=== PATIENT | female | born 1955 | race Asian ===

== ENCOUNTER → 2020-02-19 09:02 | Outpatient (BNVA) | payer BC, SELFPAY | PROVIDERS: Visit Provider Surgery | DX: Z45.010 Encounter for checking and testing of cardiac pacemaker pulse generator [battery] (principal); I48.91 Unspecified atrial fibrillation | CPT/HCPCS: 99214 ==

== ENCOUNTER 2020-03-03 12:25 | Emergency (ER) | payer BC, SELFPAY ==
--- NOTE | 2020-03-03 12:33 | ED_ITS ---
HPI - Chest Pain General Chief Complaint: Abdominal Pain Stated Complaint: chest pain Time Seen by Provider: 03/03/20 12:32 Source: patient Mode of arrival: ambulatory Limitations: no limitations History of Present Illness HPI narrative: 64-year-old female with below noted past medical history including history of gastroesophageal reflux disease, hypertension, hypercholesteremia, atrial fibrillation anticoagulated and surgical history of cholecystectomy, tubal ligation and cardiac pacemake she presents today amb ulatory via triage complaint of left-sided abdominal pain going on for the past 4 days. Pain being described as intermittent and sharp and stabbing like. States she called her primary care doctor on Saturday was advised to come in however she decided to wait she had intake today for pacemaker generator change which is scheduled for tomorrow she told him about her symptoms advised to come here. States there is no chest pain there is no shortness of breath fever runny nose cough congestion. Related Data Home Medications Medication Instructions Recorded Confirmed diltiazem HCl 1 cap PO DAILY 02/25/20 02/25/20 lisinopril 10 mg PO DAILY 02/25/20 02/25/20 metoprolol tartrate 1 tab PO BID 02/25/20 02/25/20 omeprazole 1 cap PO DAILY 02/25/20 02/25/20 pravastatin 1 tab PO DAILY 02/25/20 02/25/20 rivaroxaban [Xarelto] 1 tab PO DAILY 02/25/20 02/25/20 Allergies Allergy/AdvReac Type Severity Reaction Status Date / Time latex [LATEX] Allergy Intermediate RASH WITH Verified 02/25/20 19:14 CONTACT Review of Systems Review of Systems: Constitutional: No Weight loss, No Fever, No Chills, No Ni ght Sweats, No Fatigue, No Malaise ENT/Mouth: No Hearing loss, No Ear Pain, No Nasal Congestion, No Sinus Pain, No Hoarseness, No sore throat, No Rhinorrhea, No Swallowing Difficulty Eyes: No Eye Pain, No Swelling, No Redness, No Foreign Body, No Discharge, No Vision Changes Cardiovascular: No Chest Pain, No SOB, No Dyspnea on Exertion, No Orthopnea, No Edema, No Palpitations Respiratory: No Cough, No Sputum, No Wheezing, No Smoke Exposure, No Dyspnea Gastrointestinal: As noted in HPI, No Hematochezia, No Melena Genitourinary: no irregular bleeding, No Dysuria, No Urinary Frequency, No Hem aturia, No Urinary Incontinence, No Urgency, No Flank Pain, No Urinary Flow Changes Musculoskeletal: No joint pain, No Myalgias, No Joint Swelling Skin: No Skin Lesions, No rash Neuro: No Weakness, No Numbness, No Paresthesias, No Loss of Consciousness, No Dizziness, No Headache Psych: No Social Issues Heme/Lymph: No Bruising, No Bleeding,No Lymphadenopathy Endocrine: No Polyuria, No Polydipsia, No Temperature Intolerance Yes all other systems are reviewed and are negative [facility] Past Medical History Medical History Atrial fibrillation GERD (gastroesophageal reflux disease) HTN (hypertension) Hypercholesteremia Pacemaker Surgical History History of cholecystectomy History of permanent cardiac pacemaker placement History of tubal ligation Social History Social History Alcohol intake: never Smoking Status: Never smoker Use of substances other than those prescribed or required for medical reasons: No Advance Directives: Yes Advance Directives on File: Yes Advance Directives Date on File: 04/19/17 Physical Exam Vital Signs: Vital Signs: Last Vital Signs Temp 98.2 F 03/03/20 14:37 Pulse 92 03/03/20 14:37 Resp 16 03/03/20 14:37 BP 165/90 H 03/03/20 14:37 Pulse Ox 98 03/03/20 14:37 Body Mass Index 25.7 Reviewed Const: General: cooperative and healthy appearing; No acute distress or intoxicated appearing Nutritional Appearance: average body habitus Orientation/consciousness: patient oriented x3 HENMT: Head: Yes normal to inspection Ears: hearing grossly normal bilaterally Eyes: General: appearance normal, both eyes and all related structures Visual Mckinnon: normal visual mckinnon by confrontation Neck: Neck: Yes normal visual inspection and No tender Thyroid: Thyroid normal Chest: Chest palpation & inspection: normal inspection of the chest Resp: Effort & Inspection: normal respiratory effort Cardio: Jugular venous distension: no JVD Rhythm: regular rhythm Heart sounds: S1 normal heart sound present and S2 normal heart sound present GI: Inspection: Yes normal to inspection Palpation (GI): Soft to palpation and Tenderness to palpation present (GI) (very mild, no rebound.) in the epigastrum and in the LUQ Percussion: Yes normal to percussion Auscultation: normal bowel sounds : General: Yes no CVA tenderness Back/Spine/Pelvis: Back: no CVA tenderness Skin: General skin exam: no rashes or lesions noted Neuro: General: patient oriented x3 Extrem: General: Yes normal to inspection Course Reevaluation(s) Reevaluation #1: 1320 20 minutes after the GI cocktail states that her pain resolved. Reevaluation #2: Labs overall stable. Abdominal CT without acute findings Feels better after the GI cocktail She is on long-term PPI proper instructions, dietary regiment reviewed. Will discharge with follow-up MDM - Chest Pain Medical Records Data Attestation: I reviewed the patient's medical records. Lab Data Attestation: I reviewed the patient's lab results. Result diagrams: 03/03/20 13:08 03/03/20 13:08 Labs: Lab Results 03/03/20 03/03/20 03/03/20 Range/Units 13:08 13:08 13:08 WBC 7.5 (4.8-10.8) X10*3/uL RBC 4.68 (4.20-5.50) X10*6/uL Hgb 14.0 (12.0-16.0) g/dl Hct 41.8 (37-47) % MCV 89.3 (80-98) fL MCH 29.9 (27.0-33.0) pg MCHC 33.5 (31.0-35.0) g/dl RDW 12.3 (11.0-16.0) % Plt Count 208 (160-400) X10*3/uL MPV 9.8 (9.4-12.3) fL Immature Gran % (Auto) 0.4 (0.0-0.4) % Neut % (Auto) 58.3 (45-73) % Lymph % (Auto) 31.2 (20-40) % Marshall % (Auto) 7.4 (2-11) % Eos % (Auto) 2.0 (0-4) % Baso % (Auto) 0.7 (0-2) % Lymph # (Auto) 2.4 (1.2-4.9) X10*3/uL Marshall # (Auto) 0.6 (0.1-1.2) X10*3/uL Eos # (Auto) 0.2 (0.0-0.4) X10*3/uL Baso # (Auto) 0.1 (0.0-0.2) X10*3/uL Abs Immat Gran (auto) 0.03 (0.00-0.03) X10*3/uL Absolute Neuts (auto) 4.4 (2.0-8.3) X10*3/uL Absolute Nucleated RBC 0.000 (0.0-0.012) X10*3/uL Nucleated RBC % (auto) 0.0 (0.0-0.2) /100WBC PT 11.8 (10.8-13.0) SEC INR 1.0 (0.9-1.1) APTT 33.7 (24.1-38.0) SEC Sodium 141 (135-145) mmol/L Potassium 4.7 (3.3-5.1) mmol/l Chloride 106 (96-108) mmol/L Carbon Dioxide 29 (22-29) mmol/L Anion Gap 11 L (12-20) BUN 11 (9-16) mg/dL Creatinine 0.77 (0.5-1.4) mg/dL Estim Creat Clear Calc 66.4 Estimated GFR > 60 Random Glucose 77 (60-115) mg/dL Calcium 9.2 (8.4-10.2) mg/dL Total Bilirubin 0.4 (0.0-1.0) mg/dL AST 26 (5-31) U/L ALT 28 (0-31) U/L Alkaline Phosphatase 123 H (39-117) U/L Troponin I High Sens (<3.5-17.0) ng/L Total Protein 7.8 (6.5-8.0) g/dL Albumin 4.3 (3.5-5.0) g/dL 03/03/20 Range/Units 13:08 WBC (4.8-10.8) X10*3/uL RBC (4.20-5.50) X10*6/uL Hgb (12.0-16.0) g/dl Hct (37-47) % MCV (80-98) fL MCH (27.0-33.0) pg MCHC (31.0-35.0) g/dl RDW (11.0-16.0) % Plt Count (160-400) X10*3/uL MPV (9.4-12.3) fL Immature Gran % (Auto) (0.0-0.4) % Neut % (Auto) (45-73) % Lymph % (Auto) (20-40) % Marshall % (Auto) (2-11) % Eos % (Auto) (0-4) % Baso % (Auto) (0-2) % Lymph # (Auto) (1.2-4.9) X10*3/uL Marshall # (Auto) (0.1-1.2) X10*3/uL Eos # (Auto) (0.0-0.4) X10*3/uL Baso # (Auto) (0.0-0.2) X10*3/uL Abs Immat Gran (auto) (0.00-0.03) X10*3/uL Absolute Neuts (auto) (2.0-8.3) X10*3/uL Absolute Nucleated RBC (0.0-0.012) X10*3/uL Nucleated RBC % (auto) (0.0-0.2) /100WBC PT (10.8-13.0) SEC INR (0.9-1.1) APTT (24.1-38.0) SEC Sodium (135-145) mmol/L Potassium (3.3-5.1) mmol/l Chloride (96-108) mmol/L Carbon Dioxide (22-29) mmol/L Anion Gap (12-20) BUN (9-16) mg/dL Creatinine (0.5-1.4) mg/dL Estim Creat Clear Calc Estimated GFR Random Glucose (60-115) mg/dL Calcium (8.4-10.2) mg/dL Total Bilirubin (0.0-1.0) mg/dL AST (5-31) U/L ALT (0-31) U/L Alkaline Phosphatase (39-117) U/L Troponin I High Sens < 3.5 (<3.5-17.0) ng/L Total Protein (6.5-8.0) g/dL Albumin (3.5-5.0) g/dL Imaging Data CT scan - abdomen: Radiologist's impression: [address] [address] [address] Scan Report Signed Patient: Lupe Thomas#: [id number] : 5Acct:[id number] Age/Sex: 64 / FADM Date: 03/03/20 Loc: HO.ED Attending Dr: Ordering Physician: Donny Thompson NP Date of Service: 03/03/20 Procedure(s): CT abdomen pelvis w con Accession Number(s): [id number] cc: Donny Thompson NP~ EXAMINATION: CT ABDOMEN AND PELVIS WITH CONTRAST CLINICAL INFORMATION: Left-sided abdominal pain. COMPARISON: CTA abdomen 04/24/2019, CT abdomen and pelvis with contrast 10/11/2017 TECHNIQUE: Multidetector volumetric images were obtained from the superior aspect of the liver through the pubic symphysis following administration 85 mL of Omnipaque 350 intravenous contrast. Sagittal and coronal reformatted images were obtained on the technologist's workstation. Oral contrast: No This CT examination was performed using dose optimization techniques as appropriate, variously including the following: *Automated exposure control *Adjustment of mA and/or kV according to patient size (this includes techniques or standardized protocols for targeted exams where dose is matched to indication/reason for exam; i.e. extremities or head) *Use of iterative reconstruction technique DLP: 405 mGy-cm FINDINGS: LUNG BASES: The visualized lung bases are unremarkable. LIVER, GALLBLADDER, AND BILIARY TREE: The liver is normal in size and smooth in contour. There is borderline hepatic steatosis. There has been prior cholecystectomy. There is no hepatic parenchymal lesion or intrahepatic ductal dilatation. Common duct measures approximately 1.1 cm similar to prior exam. PANCREAS: Unremarkable. SPLEEN: Normal in size. Small splenule left upper quadrant again noted. ADRENAL GLANDS: Unremarkable. KIDNEYS AND URETERS: The kidneys are normal in size and smooth in contour and enhance symmetrically. There is no hydronephrosis, hydroureter, or perinephric stranding. No visible calculi. Again, there is tiny cyst upper pole left kidney under a centimeter and a 1.5 cm cyst upper pole right kidney. BLADDER: The bladder is very distended. No focal wall thickening, diverticulum, or bladder calculus. GASTROINTESTINAL TRACT: There is no bowel obstruction or inflammatory changes in the bowel or mesentery. There is been prior appendectomy. No ascites or fluid collection. ABDOMINAL WALL: No significant hernia is appreciated. LYMPH NODES: No lymphadenopathy. VASCULAR: Unremarkable. PELVIC VISCERA: Unremarkable. OSSEOUS STRUCTURES: Unremarkable. CT/CT abdomen pelvis w con IMPRESSION: 1. Overdistended urinary bladder. Upper tracts unremarkable. No hydronephrosis or perirenal Screening. 2. Prior appendectomy. No bowel obstruction or inflammatory changes in abdomen or pelvis. 3. Prior cholecystectomy. No intrahepatic ductal dilatation. Common duct stable. Dictated By:DOT PATEL MD Signed By:<Electronically signed by DOT PATEL MD in OV>03/03/20 1437 DD/ 1254 TD/TT: Brick Tester: OCTAVIO Chest x-ray: Radiologist's impression: Lupe Thomas 64 F 1955 [place] [id number] XRay Report Signed Patient: Lupe ThomaskMR#: [id number] : 5Acct:[id number] Age/Sex: 64 / FADM Date: 03/03/20 Loc: .ED Attending Dr: Ordering Physician: Donny Thompson NP Date of Service: 03/03/20 Procedure(s): XR chest 1V Accession Number(s): [id number] cc: Donny Thompson NP~ EXAMINATION: XR CHEST CLINICAL INFORMATION: Chest pain. COMPARISON: 07/27/2019 chest radiograph. TECHNIQUE: Frontal view of the chest was obtained. FINDINGS: The lungs are clear. The heart and mediastinal structures are unremarkable. A left-sided pacemaker appears in good position. XR/XR chest 1V IMPRESSION: No acute cardiopulmonary process. Dictated By:SULEMA JULIAN MD Signed By:<Electronically signed by SULEMA JULIAN MD in OV>03/03/20 1319 DD/ 1234 TD/TT: Brick Tester: JOSÉ MIGUEL ECG Data ECG #1: Interpretation: Atrial fibrillation Rate 85 T-wave inversions in leads 2 3 AVF for 4-5-6 No change from July Discharge Plan Discharge Clinical Impression: Chronic GERD, Abdominal pain Patient Disposition: Home, Self-Care Instructions: Diet for Stomach Ulcers and Gastritis (ED), Gastroesophageal Reflux Disease (ED) Additional Instructions: Dietary precautions reviewed Take your omeprazole with instructions as reviewed Follow-up as instructed Return if any concerns worsening symptoms Thank you Prescriptions: No Action pravastatin 40 mg tablet 1 tab PO DAILY RF: 0 diltiazem HCl 120 mg capsule,extended release 24 hr 1 cap PO DAILY RF: 0 lisinopril 10 mg tablet 10 mg PO DAILY RF: 0 omeprazole 20 mg capsule,delayed release(DR/EC) 1 cap PO DAILY RF: 0 metoprolol tartrate 25 mg tablet 1 tab PO BID RF: 0 Xarelto 20 mg tablet 1 tab PO DAILY RF: 0 Referrals: Gustavo Reynoso MD [Primary Care Provider] - 3 days
--- NOTE | 2020-03-03 12:34 | ECG_ITS ---
Test Reason : ABDOMINAL PAIN Blood Pressure : / mmHG Vent. Rate : 085 BPM Atrial Rate : 241 BPM P-R Int : 000 ms QRS Dur : 084 ms QT Int : 412 ms P-R-T Axes : 000 017 266 degrees QTc Int : [address] & T wave abnormality, consider inferior ischemia ST & T wave abnormality, consider anterolateral ischemia Prolonged QT Abnormal ECG When compared with ECG of 27-JUL-2019 11:09, No significant changes seen Referred By: Donny Thompson Electronically Signed By:Toribio Lau
[2020-03-03 12:38] VITALS: BP 162/83; PULSE 75; RESP 18; TEMP 36.5; O2SAT 97; BMI 25.7
[2020-03-03] MEDS: Lidocaine HCl Viscous 2 % 15 ML SOLUTION 10 ML MUCOUS MEM (12:46)
[2020-03-03] MEDS: Magnesium Hydrox/Alum Hydrox 30 ML ORAL.SUSP PO (12:47)
--- NOTE | 2020-03-03 12:54 | CT_ITS ---
EXAMINATION: CT ABDOMEN AND PELVIS WITH CONTRAST CLINICAL INFORMATION: Left-sided abdominal pain. COMPARISON: CTA abdomen 04/24/2019, CT abdomen and pelvis with contrast 10/11/2017 TECHNIQUE: Multidetector volumetric images were obtained from the superior aspect of the liver through the pubic symphysis following administration 85 mL of Omnipaque 350 intravenous contrast. Sagittal and coronal reformatted images were obtained on the technologist's workstation. Oral contrast: No This CT examination was performed using dose optimization techniques as appropriate, variously including the following: *Automated exposure control *Adjustment of mA and/or kV according to patient size (this includes techniques or standardized protocols for targeted exams where dose is matched to indication/reason for exam; i.e. extremities or head) *Use of iterative reconstruction technique DLP: 405 mGy-cm FINDINGS: LUNG BASES: The visualized lung bases are unremarkable. LIVER, GALLBLADDER, AND BILIARY TREE: The liver is normal in size and smooth in contour. There is borderline hepatic steatosis. There has been prior cholecystectomy. There is no hepatic parenchymal lesion or intrahepatic ductal dilatation. Common duct measures approximately 1.1 cm similar to prior exam. PANCREAS: Unremarkable. SPLEEN: Normal in size. Small splenule left upper quadrant again noted. ADRENAL GLANDS: Unremarkable. KIDNEYS AND URETERS: The kidneys are normal in size and smooth in contour and enhance symmetrically. There is no hydronephrosis, hydroureter, or perinephric stranding. No visible calculi. Again, there is tiny cyst upper pole left kidney under a centimeter and a 1.5 cm cyst upper pole right kidney. BLADDER: The bladder is very distended. No focal wall thickening, diverticulum, or bladder calculus. GASTROINTESTINAL TRACT: There is no bowel obstruction or inflammatory changes in the bowel or mesentery. There is been prior appendectomy. No ascites or fluid collection. ABDOMINAL WALL: No significant hernia is appreciated. LYMPH NODES: No lymphadenopathy. VASCULAR: Unremarkable. PELVIC VISCERA: Unremarkable. OSSEOUS STRUCTURES: Unremarkable. CT/CT abdomen pelvis w con IMPRESSION: 1. Overdistended urinary bladder. Upper tracts unremarkable. No hydronephrosis or perirenal Screening. 2. Prior appendectomy. No bowel obstruction or inflammatory changes in abdomen or pelvis. 3. Prior cholecystectomy. No intrahepatic ductal dilatation. Common duct stable.
[2020-03-03 13:16] LABS: Basophils Absolute Auto 0.1 X10*3/uL (0.0-0.2); Basophils Percent Auto 0.7 % (0-2); Eosinophils Absolute Auto 0.2 X10*3/uL (0.0-0.4); Hematocrit 41.8 % (37-47); Imm Gran Abs Auto 0.03 X10*3/uL (0.00-0.03); Imm Gran Pct Auto 0.4 % (0.0-0.4); Lymphocytes Absolute Auto 2.4 X10*3/uL (1.2-4.9); Lymphocytes Percent Auto 31.2 % (20-40); MANUAL DIFF FLAG NO; Mean Corpuscular HGB Conc 33.5 g/dl (31.0-35.0); Mean Corpuscular Hemoglobin 29.9 pg (27.0-33.0); Mean Corpuscular Volume 89.3 fL (80-98); Mean Platelet Volume 9.8 fL (9.4-12.3); Monocytes Absolute Auto 0.6 X10*3/uL (0.1-1.2); Monocytes Percent Auto 7.4 % (2-11); Neutrophils Absolute Auto 4.4 X10*3/uL (2.0-8.3); Neutrophils Percent Auto 58.3 % (45-73); Platelet Count 208 X10*3/uL (160-400); Red Blood Count 4.68 X10*6/uL (4.20-5.50); Red Cell Distribution Width 12.3 % (11.0-16.0); White Blood Count 7.5 X10*3/uL (4.8-10.8)
[2020-03-03 13:25] LABS: Prothrombin Time 11.8 SEC (10.8-13.0)
[2020-03-03 13:27] LABS: Partial Thromboplastin Time 33.7 SEC (24.1-38.0)
--- NOTE | 2020-03-03 13:30 | PC.NURSE ---
PT C/O LUQ ABD PAIN X4 DAYS, NO RELIEF FROM IBUPROFEN AT HOME, PT MEDICATED W/ 'GI COCKTAIL' PER EMAR, PT REPORTED SIGNIFICANT RELIEF S/P MEDICATION, PROVIDER NOTIFIED.
[2020-03-03 13:42] LABS: Alanine Aminotransferase 28 U/L (0-31); Albumin Level 4.3 g/dL (3.5-5.0); Alkaline Phosphatase 123 U/L (39-117); Anion Gap 11 (12-20); Aspartate Amino Transferase 26 U/L (5-31); Bilirubin Total 0.4 mg/dL (0.0-1.0); Blood Urea Nitrogen 11 mg/dL (9-16); Calcium 9.2 mg/dL (8.4-10.2); Carbon Dioxide 29 mmol/L (22-29); Chloride 106 mmol/L (96-108); Creatinine Clr Calc Pharmacy 66.4; Estimated Glomerular Filt Rate > 60; Glucose Random 77 mg/dL (60-115); Potassium 4.7 mmol/l (3.3-5.1); Sodium 141 mmol/L (135-145); Total Protein 7.8 g/dL (6.5-8.0)
[2020-03-03 13:43] LABS: Troponin-I High Sensitivity < 3.5 ng/L (<3.5-17.0)
[2020-03-03] MEDS: iohexoL 350 MG/ML 100 ML INFUS..BTL 85 ML IV (14:03)
[2020-03-03 14:37] VITALS: BP 165/90; PULSE 92; RESP 16; TEMP 36.8; O2SAT 98
[2020-03-03 15:27] LABS: Glucose Urine UA NEG (NEG); Leukocyte Esterase Urine NEG (NEG); Nitrite Urine NEG (NEG); Specific Gravity - Urine <= 1.005 (1.005-1.025); Urine Blood NEG (NEG); Urine Ketones NEG (NEG); Urine Protein NEG (NEG-TRACE)
[2020-03-03 15:40] LABS: Appearance Urine CLEAR; Color Urine YELLOW
[2020-03-03 15:57] LABS: RBC Urine 0 /HPF (0); WBC Urine 0 /HPF (0-4)
[2020-03-03 15:58] LABS: Squamous Epithelial Cell Urine TRACE /LPF
== END 2020-03-03 15:44 | disposition home or self-care (01) ==
PROVIDERS: Nurse Practitioner Primary Care; Emergency Provider Emergency Medicine Emergency Medical Services
DX: K21.9 Gastro-esophageal reflux disease without esophagitis (principal); I48.91 Unspecified atrial fibrillation; R10.9 Unspecified abdominal pain; I10 Essential (primary) hypertension; Z79.899 Other long term (current) drug therapy
CPT/HCPCS: 36415; 71045; 74177; 80053; 81001; 84484; 85025; 85610; 85730; 93005; 96374; 99284; 99285; Q9967

== ENCOUNTER 2020-03-04 11:24 | Day surgery (SDC) | payer BC, SELFPAY ==
[2020-02-25 19:08] VITALS: BMI 25.7
--- NOTE | 2020-03-03 09:50 | P.CONAN_ITS ---
Documented by User: Alessia Raygoza 03/03/20 09:54 HPI - Anesthesia Eval Consult details Narrative: 64yo F for Pacemaker Generator Change [facility] Past Medical History Medical History (Updated 03/04/20 @ 12:40 by Perla Yadav) Atrial fibrillation GERD (gastroesophageal reflux disease) HTN (hypertension) Hypercholesteremia Pacemaker Surgical History Surgical History History of cholecystectomy History of permanent cardiac pacemaker placement History of tubal ligation Social History Social History Alcohol intake: never Smoking Status: Never smoker Use of substances other than those prescribed or required for medical reasons: No Advance Directives: Yes Advance Directives Information Provided: Yes Advance Directives on File: Yes Advance Directives Date on File: 04/19/17 Meds Allergies Allergy/AdvReac Type Severity Reaction Status Date / Time latex [LATEX] Allergy Intermediate RASH WITH Verified 02/25/20 19:14 CONTACT Home Medications Medication Instructions Recorded Confirmed Type diltiazem HCl 1 cap PO DAILY 02/25/20 03/04/20 History lisinopril 10 mg PO DAILY 02/25/20 02/25/20 History metoprolol tartrate 1 tab PO BID 02/25/20 03/04/20 History omeprazole 1 cap PO DAILY 02/25/20 02/25/20 History pravastatin 1 tab PO DAILY 02/25/20 02/25/20 History rivaroxaban [Xarelto] 1 tab PO DAILY 02/25/20 03/04/20 History Exam Exam Date and Time: March 03, 2020 0950 Height,Weight and Vital Signs: Height 5 ft 3 in Weight 65.771 kg Pertinent Lab Results Pertinent Lab Results: Laboratory Tests 07/27/19 07/27/19 11:51 11:51 WBC 8.6 Hgb 14.8 Hct 43.4 Plt Count 252 Sodium 140 Potassium 4.1 Chloride 107 BUN 13 Creatinine 0.71 Assessment and Plan Assessment Anesthesia Assessment: Chart Reviewed Documented by User: Perla Yadav 03/04/20 12:51 [facility] Past Medical History Medical History (Updated 03/04/20 @ 12:40 by Perla Yadav) Atrial fibrillation GERD (gastroesophageal reflux disease) HTN (hypertension) Hypercholesteremia Pacemaker Family History Family history of problems with anesthesia: No Surgical History Surgical History History of cholecystectomy History of permanent cardiac pacemaker placement History of tubal ligation History of Problems with Anesthesia: No Social History Social History Alcohol intake: never Smoking Status: Never smoker Use of substances other than those prescribed or required for medical reasons: No Advance Directives: Yes Advance Directives Information Provided: Yes Advance Directives on File: Yes Advance Directives Date on File: 04/19/17 Meds Allergies Allergy/AdvReac Type Severity Reaction Status Date / Time latex [LATEX] Allergy Intermediate RASH WITH Verified 02/25/20 19:14 CONTACT Home Medications Medication Instructions Recorded Confirmed Type diltiazem HCl 1 cap PO DAILY 02/25/20 03/04/20 History lisinopril 10 mg PO DAILY 02/25/20 02/25/20 History metoprolol tartrate 1 tab PO BID 02/25/20 03/04/20 History omeprazole 1 cap PO DAILY 02/25/20 02/25/20 History pravastatin 1 tab PO DAILY 02/25/20 02/25/20 History rivaroxaban [Xarelto] 1 tab PO DAILY 02/25/20 03/04/20 History Exam Height,Weight and Vital Signs: Vital Signs Temp Pulse Resp BP Pulse Ox 03/04/20 11:59 96.8 F 62 16 177/78 H 97 Airway Mallampati Class: II TM Dist: >3cm Neck ROM: Full Loose/Missing/Broken Teeth: Yes (Back) Heart: RRR Lungs: CTAB Assessment and Plan Assessment Anesthesia Assessment: Anesthesia Plan Discussed and Chart Reviewed Final Anesthetic Review NPO: Yes ASA Class: III Final Preanesthetic Review: No Changes in Pt Med Stat, Meds/Allgs Chart Reviewed, Consent Obtained/Reviewed and Anes Risks/Benef Reviewed Patient Risk: Intermediate Procedure Risk: Intermediate Anesthetic Plan Anesthetic Plan: MAC: Disposition: Standard PACU
[2020-03-04 11:59] VITALS: BP 177/78; PULSE 62; RESP 16; TEMP 36; O2SAT 97
[2020-03-04] MEDS: Lactated Ringers 1,000 ML 100 ML IVCONT (12:15)
--- NOTE | 2020-03-04 12:40 | MHC.SHP ---
Pre-Procedural Eval Section B Chief Complaint: A-fib, Checking and testing of Cardiac Pacemaker Allergies: Allergies Allergy/AdvReac Type Severity Reaction Status Date / Time latex [LATEX] Allergy Intermediate RASH WITH Verified 02/25/20 19:14 CONTACT Plan I have reviewed the history and physical and performed a pertinent physical examination on my patient. No changes have occurred unless specified.
[2020-03-04 13:45] VITALS: BP 134/75; PULSE 75; RESP 20; TEMP 36.1; O2SAT 100
--- NOTE | 2020-03-04 13:53 | PM.OP ---
Brief Operative Note Date of Service: 03/04/20 Pre-op diagnosis: Pacemaker in HARMEET Post-op diagnosis: same Procedure: Dual pacer generator change Implants: See dictation Surgeon: Fadumo Katz MD Anesthesia: MAC Estimated blood loss (mL): 2 Condition: stable Disposition: PACU
[2020-03-04 14:00] VITALS: BP 144/65; PULSE 61; RESP 20; O2SAT 97
[2020-03-04] MEDS: Acetaminophen 325 MG TABLET 650 MG PO (14:09)
[2020-03-04 14:15] VITALS: BP 168/76; PULSE 66; RESP 18; TEMP 36.5; O2SAT 96
--- NOTE | 2020-03-04 14:28 | HO.POSTANES ---
Post Anesthesia Evaluation Post Anesthesia Evaluation Vital Signs: Vital Signs Temp Pulse Resp BP Pulse Ox 03/04/20 14:15 97.7 F 66 18 168/76 H 96 03/04/20 14:00 61 20 144/65 H 97 03/04/20 13:45 97.0 F 75 20 134/75 100 03/04/20 11:59 96.8 F 62 16 177/78 H 97 Anesthesia: Monitored Mental Status: Awake Pain Control: Satisfactory Hydration: Adequate
== END 2020-03-04 14:47 | disposition home or self-care (01) ==
PROVIDERS: Visit Provider Surgery
PROC: (CPT 33228; principal; 2020-03-04 13:00)
DX: Z45.010 Encounter for checking and testing of cardiac pacemaker pulse generator [battery] (principal); I48.91 Unspecified atrial fibrillation; I10 Essential (primary) hypertension; K21.9 Gastro-esophageal reflux disease without esophagitis; Z79.899 Other long term (current) drug therapy; Z91.040 Latex allergy status
CPT/HCPCS: 33228; 86850; 86900; 86901; C1785; J0690; J2250; J3010; J3370

== ENCOUNTER → 2020-03-25 10:15 | Outpatient (BNVA) | payer BC, SELFPAY | PROVIDERS: Visit Provider Surgery | DX: Z76.89 Persons encountering health services in other specified circumstances (principal) ==

== ENCOUNTER 2020-05-13 08:21 | Outpatient (REF) | payer MEDICARE, SELFPAY ==
[2020-05-13 09:19] LABS: MANUAL DIFF FLAG NO
[2020-05-13 09:23] LABS: Basophils Percent Auto 0.4 % (0-2); Eosinophils Absolute Auto 0.2 X10*3/uL (0.0-0.4); Eosinophils Percent Auto 3.5 % (0-4); Hematocrit 42.6 % (37-47); Hemoglobin 13.6 g/dl (12.0-16.0); Imm Gran Abs Auto 0.03 X10*3/uL (0.00-0.03); Imm Gran Pct Auto 0.4 % (0.0-0.4); Lymphocytes Absolute Auto 2.8 X10*3/uL (1.2-4.9); Lymphocytes Percent Auto 40.1 % (20-40); Mean Corpuscular HGB Conc 31.9 g/dl (31.0-35.0); Mean Corpuscular Hemoglobin 29.3 pg (27.0-33.0); Mean Corpuscular Volume 91.8 fL (80-98); Mean Platelet Volume 10.8 fL (9.4-12.3); Monocytes Absolute Auto 0.6 X10*3/uL (0.1-1.2); Monocytes Percent Auto 8.2 % (2-11); Neutrophils Absolute Auto 3.3 X10*3/uL (2.0-8.3); Neutrophils Percent Auto 47.4 % (45-73); Platelet Count 211 X10*3/uL (160-400); Red Blood Count 4.64 X10*6/uL (4.20-5.50); Red Cell Distribution Width 12.7 % (11.0-16.0); White Blood Count 6.9 X10*3/uL (4.8-10.8)
[2020-05-13 09:47] LABS: Alanine Aminotransferase 37 U/L (0-31); Albumin Level 4.2 g/dL (3.5-5.0); Alkaline Phosphatase 104 U/L (39-117); Anion Gap 12 (12-20); Aspartate Amino Transferase 29 U/L (5-31); Bilirubin Total 0.9 mg/dL (0.0-1.0); Blood Urea Nitrogen 17 mg/dL (9-16); Calcium 8.9 mg/dL (8.4-10.2); Carbon Dioxide 28 mmol/L (22-29); Chloride 106 mmol/L (96-108); Cholesterol 160 mg/dL; Estimated Glomerular Filt Rate > 60; Glucose Fasting 132 mg/dL (60-99); HDL Cholesterol 48 mg/dL; LDL Cholesterol Calculated 85 mg/dl; Potassium 4.6 mmol/L (3.3-5.1); Sodium 141 mmol/L (135-145); Total Protein 7.7 g/dL (6.5-8.0); Triglycerides 136 mg/dL
[2020-05-13 10:09] LABS: TSH reflex Free T4 1.35 uIU/mL (0.32-4.0)
[2020-05-13 10:17] LABS: Estimated Average Glucose 128 mg/dL; Hemoglobin A1c % 6.1 %
== END 2020-05-13 08:22 | disposition home or self-care (01) ==
LOC: HO.LAB 08:21
PROVIDERS: PCP Nurse Practitioner Family; Visit Provider Nurse Practitioner Family
DX: I10 Essential (primary) hypertension (principal); E78.00 Pure hypercholesterolemia, unspecified
CPT/HCPCS: 36415; 80053; 80061; 83036; 84443; 85025

== ENCOUNTER → 2020-10-14 09:34 | Outpatient (BNVA) | payer MEDICARE, SELFPAY | PROVIDERS: PCP Internal Medicine; Visit Provider Surgery | DX: I48.91 Unspecified atrial fibrillation (principal); Z95.0 Presence of cardiac pacemaker; Z79.899 Other long term (current) drug therapy | CPT/HCPCS: 99212 ==

== ENCOUNTER → 2020-12-07 08:04 | Outpatient (BNVA) | payer MEDICARE, SELFPAY | PROVIDERS: PCP Internal Medicine; Visit Provider Internal Medicine | DX: I48.0 Paroxysmal atrial fibrillation (principal); I10 Essential (primary) hypertension; E78.5 Hyperlipidemia, unspecified; Z95.0 Presence of cardiac pacemaker | CPT/HCPCS: 93005; 99202 ==

== ENCOUNTER 2021-01-02 15:10 | Outpatient (REF) | payer MEDICARE, SELFPAY ==
--- NOTE | ~2021-01-02 | XR_ITS ---
EXAMINATION: XR SHOULDER, RIGHT CLINICAL INFORMATION: Pain. COMPARISON: None TECHNIQUE: AP external rotation, Grashey, scapular Y, and axillary views of the right shoulder. FINDINGS: The glenohumeral joint space and AC joint space are normal. There is small enthesophytes along the greater tuberosity. The soft tissues are normal. XR/XR shoulder RT min 2V IMPRESSION: Small enthesophytes along the greater tuberosity. No visible acute fracture or dislocation seen. No lytic process.
== END 2021-01-02 15:11 | disposition home or self-care (01) ==
LOC: HO.XRAY 15:10
PROVIDERS: PCP Internal Medicine; Visit Provider Internal Medicine
DX: M25.511 Pain in right shoulder (principal)
CPT/HCPCS: 73030

== ENCOUNTER 2021-01-10 07:36 | Outpatient (REF) | payer MEDICARE, SELFPAY ==
[2021-01-10 07:53] LABS: MANUAL DIFF FLAG NO
[2021-01-10 08:16] LABS: Basophils Percent Auto 0.5 % (0-2); Eosinophils Absolute Auto 0.3 X10*3/uL (0.0-0.4); Eosinophils Percent Auto 3.8 % (0-4); Hematocrit 40.6 % (37-47); Hemoglobin 13.7 g/dl (12.0-16.0); Imm Gran Abs Auto 0.02 X10*3/uL (0.00-0.03); Imm Gran Pct Auto 0.3 % (0.0-0.4); Lymphocytes Percent Auto 30.4 % (20-40); Mean Corpuscular HGB Conc 33.7 g/dl (31.0-35.0); Mean Corpuscular Hemoglobin 30.4 pg (27.0-33.0); Mean Corpuscular Volume 90.2 fL (80-98); Mean Platelet Volume 10.1 fL (9.4-12.3); Monocytes Absolute Auto 0.5 X10*3/uL (0.1-1.2); Monocytes Percent Auto 7.5 % (2-11); Neutrophils Absolute Auto 3.8 X10*3/uL (2.0-8.3); Neutrophils Percent Auto 57.5 % (45-73); Platelet Count 192 X10*3/uL (160-400); Red Cell Distribution Width 12.6 % (11.0-16.0); White Blood Count 6.5 X10*3/uL (4.8-10.8)
[2021-01-10 08:54] LABS: Alanine Aminotransferase 42 U/L (0-31); Albumin Level 4.2 g/dL (3.5-5.0); Alkaline Phosphatase 96 U/L (39-117); Anion Gap 11 (12-20); Aspartate Amino Transferase 36 U/L (5-31); Bilirubin Total 0.7 mg/dL (0.0-1.0); Blood Urea Nitrogen 16 mg/dL (9-16); Calcium 9.4 mg/dL (8.4-10.2); Carbon Dioxide 28 mmol/L (22-29); Chloride 106 mmol/L (96-108); Cholesterol 142 mg/dL; Estimated Glomerular Filt Rate > 60; Glucose Random 131 mg/dL (60-115); HDL Cholesterol 42 mg/dL; LDL Cholesterol Calculated 86 mg/dl; Potassium 4.8 mmol/L (3.3-5.1); Sodium 140 mmol/L (135-145); Total Protein 7.7 g/dL (6.5-8.0); Triglycerides 74 mg/dL
[2021-01-10 08:59] LABS: Estimated Average Glucose 140 mg/dL; Hemoglobin A1c % 6.5 %
[2021-01-10 09:17] LABS: Free T4 (Free Thyroxine) 1.09 ng/dL (0.71-1.85); Vitamin D 25-OH Total 29.3 ng/mL (>30)
[2021-01-10 09:29] LABS: Folate 19.1 ng/mL (> or = 4.0); Vitamin B12 1004 pg/mL (200-900)
== END 2021-01-10 07:37 | disposition home or self-care (01) ==
LOC: HO.LAB 07:36
PROVIDERS: PCP Internal Medicine; Visit Provider Internal Medicine
DX: E78.00 Pure hypercholesterolemia, unspecified (principal); I10 Essential (primary) hypertension; R73.01 Impaired fasting glucose
CPT/HCPCS: 36415; 80053; 80061; 82306; 82607; 82746; 83036; 84439; 84443; 85025

== ENCOUNTER → 2021-08-28 14:07 | Outpatient (BNVA) | payer MEDICARE, SELFPAY | PROVIDERS: PCP Internal Medicine; Visit Provider Physician Assistant | DX: M75.80 Other shoulder lesions, unspecified shoulder (principal) | CPT/HCPCS: 20610; 99202; J1040 ==

== ENCOUNTER 2021-11-02 08:54 | Outpatient (REF) | payer MEDICARE, SELFPAY ==
--- NOTE | ~2021-11-02 | MM_ITS ---
EXAMINATION: MM DIAGNOSTIC DIGITAL BREAST TOMOSYNTHESIS, BILATERAL US DIAGNOSTIC ULTRASOUND BREAST, LEFT CLINICAL INFORMATION: 66-year-old with palpable concern upper outer left breast and left axilla. No prior breast imaging. No known family history breast cancer. TC score 3%. COMPARISON: None (current study represents initial baseline exam). TECHNIQUE: Digital breast tomosynthesis is performed in both the craniocaudal and mediolateral oblique views along with computer-aided detection (CAD). Synthesized 2D images are generated from the tomosynthesis. Additional left MLO, spot magnification left CC and spot magnification left MLO views are obtained. Ultrasound left breast is targeted to the palpable area upper outer quadrant as well as the left axilla. Grayscale imaging and color Doppler are performed without and with harmonics. FINDINGS: There are scattered areas of fibroglandular density (ACR BI-RADS breast composition Category b). There is a mass corresponding to the palpable concern upper outer quadrant left breast mid to posterior depth measuring approximately 2.3 cm in diameter. Margins are ill-defined. There are associated scattered round and oval and some coarse calcifications in this area. There is a large node left axilla 2.7 x 2.3 cm with no visible fatty hilus. Pacemaker generator partially overlying the posterior upper left axilla. There is mild left nipple retraction. Right breast shows scattered fibroglandular densities without mass or architectural abnormality or abnormal calcifications. There is incidental intramammary node posterior upper outer quadrant. Right axilla and skin contours are unremarkable. Ultrasound left breast demonstrates hypoechoic mass upper outer quadrant corresponding to the finding on mammography with lobulated irregular margins and overall size 2.6 x 2.0 x 2.5 cm. There is a simple avascular cystic lesion in the center of the mass measuring 1.3 x 0.9 x 0.9 cm and increased through-transmission of sound. Ultrasound left axilla demonstrates abnormal node corresponding to the mammography measuring 2.6 x 1.4 cm with no fatty hilus and abnormal color flow pattern. Results are discussed with the patient at time of visit. Ultrasound-guided core biopsy of the breast mass and left axillary node are recommended. Results and recommendations called to biological technical officer (Teresa) for Dr. Carias and Nelida Velazquez NP on 11/02/2021. MM/MM tomosynthesis diagnostic BI IMPRESSION: Left: -Irregular mass 2.6 cm upper outer left breast with associated calcifications and left axillary adenopathy. Right: -No mammographic evidence of malignancy. ASSESSMENT: BI-RADS 4: Suspicious (subcategory 4C: High suspicion for malignancy) RECOMMENDATION: -Ultrasound-guided core biopsy left breast mass. -Ultrasound-guided core biopsy left axillary adenopathy. This patient's information was entered into a reminder system with a target due date for their next mammogram.
== END 2021-11-02 08:55 | disposition home or self-care (01) ==
LOC: HO.MAMMO 08:54
PROVIDERS: PCP Internal Medicine; Visit Provider Nurse Practitioner Family
DX: N63.21 Unspecified lump in the left breast, upper outer quadrant (principal)
CPT/HCPCS: 76642; 77062; 77066

== ENCOUNTER → 2021-11-03 08:31 | Outpatient (BNVA) | payer MEDICARE, SELFPAY | PROVIDERS: PCP Internal Medicine; Visit Provider Surgery | DX: R92.8 Other abnormal and inconclusive findings on diagnostic imaging of breast (principal); N63.20 Unspecified lump in the left breast, unspecified quadrant | CPT/HCPCS: 99202 ==

== ENCOUNTER 2021-11-07 07:38 | Outpatient (REF) | payer MEDICARE, SELFPAY ==
--- NOTE | ~2021-11-07 | MM_ITS ---
PROCEDURE: US GUIDED BREAST BIOPSY, LEFT CLINICAL INFORMATION: Partially cystic hypoechoic lesion left breast 3:00 position. Abnormal-appearing left axillary lymph node. COMPARISON: November 02, 2021 PROCEDURAL DETAILS: The details of the procedure, as well as the risks, benefits, and alternatives to the procedure were explained to the patient in detail and all of her questions were answered, after which written informed consent was obtained. Site and side were confirmed. Prior to the procedure, sonography revealed a lobular hypoechoic partially cystic mass. A time-out was performed, the lesion intended for biopsy was targeted, and the skin of the left breast was then prepped and draped in the usual sterile fashion. Using sonographic guidance, sterile technique, and 1% lidocaine without epinephrine for local anesthesia, multiple automated core biopsies were obtained through the targeted area with a 14G spring loaded Achieve core biopsy device. There was real-time confirmation of appropriate needle passage. Sampling was documented. At the completion of tissue sampling, a single open coil metallic clip was deposited at the biopsy site. Using sterile technique and ultrasound guidance the abnormal-appearing left axillary lymph node was identified and after lidocaine administration multiple 14-gauge core biopsies were obtained of the lymph node. A closed coil marking clip was placed. There was no evidence of immediate complication. SPECIMEN: Adequate samples were obtained. DIGITAL POST-PROCEDURE MAMMOGRAPHY: Breast density: The tissue contains scattered areas of fibroglandular density. BI-RADS version 5, category B. There are no new mammographic findings demonstrated. The postprocedure 2-view direct digital mammogram reveals satisfactory positioning of the biopsy clips . The patient tolerated the procedure well and, after assuring adequate hemostasis, was discharged in good condition after reviewing postbiopsy breast care instructions. Final pathology results are pending. MM/MM tomosynthesis diagnostic LT IMPRESSION: 1. No immediate complication from ultrasound-guided percutaneous biopsy left breast and left axilla lymph node. 2. Ultrasound was used to localize and guide marker clip placements. 3. The 2-view direct digital postprocedure mammogram reveals satisfactory positioning of the biopsy clips. 4. Final pathology results are pending. A separate report with final recommendations will be issued once these results are made available.
[2021-11-07] MEDS: Lidocaine HCl 1 % 20 ML VIAL SUBCUT (10:28)
== END 2021-11-07 07:39 | disposition home or self-care (01) ==
LOC: HO.MAMMO 07:38
PROVIDERS: Radiology Diagnostic Radiology; PCP Internal Medicine; Visit Provider Surgery
DX: R92.8 Other abnormal and inconclusive findings on diagnostic imaging of breast (principal)
CPT/HCPCS: 19083; 36415; 77061; 77065; 88184; 88185; 88305; 88341; 88342; 88360; 88374; A4648

== ENCOUNTER → 2021-11-14 15:31 | Outpatient (BNVA) | payer MEDICARE, SELFPAY | PROVIDERS: PCP Internal Medicine; Referring Provider Internal Medicine; Visit Provider Surgery | DX: C50.412 Malignant neoplasm of upper-outer quadrant of left female breast (principal) | CPT/HCPCS: 99212 ==

== ENCOUNTER → 2021-11-17 10:43 | Outpatient (BNV) | payer MEDICARE, SELFPAY | PROVIDERS: PCP Internal Medicine; Referring Provider Surgery; Visit Provider Internal Medicine | DX: C50.812 Malignant neoplasm of overlapping sites of left female breast (principal); Z90.12 Acquired absence of left breast and nipple; M81.0 Age-related osteoporosis without current pathological fracture | CPT/HCPCS: 99205; 99212; 99213; 99214; 99215; G2211 ==

== ENCOUNTER → 2021-11-28 14:56 | Outpatient (BNVA) | payer MEDICARE, SELFPAY | PROVIDERS: PCP Internal Medicine; Visit Provider Surgery | DX: C50.412 Malignant neoplasm of upper-outer quadrant of left female breast (principal); C77.3 Secondary and unspecified malignant neoplasm of axilla and upper limb lymph nodes; Z17.1 Estrogen receptor negative status [ER-] | CPT/HCPCS: 99212 ==

== ENCOUNTER → 2021-12-04 16:09 | Outpatient (REF) | payer MEDICARE, SELFPAY ==
--- NOTE | 2021-12-04 16:12 | CA_ITS ---
Transthoracic Echocardiogram Patient (Last, First, Middle): Lupe Thomas Y Gender: Female Date of : 1955 Age: 66 Procedure Date: 12/04/2021 Procedure Type: Transthoracic Echocardiogram Location: OP Height: 160.02 cm Weight: 61.69 kg BSA: 1.64 m2 Heart Rate: bpm BP: 118 / 60 mmHg Allergy Specialist: Referring MD: Renate Mcgill MD Symptoms: pre-chemo evaluate ejection fraction Study Quality: Adequate ECG Rhythm: Atrial Fibrillation Conclusions: - The left ventricular systolic function is normal. The visually estimated ejection fraction is between 55-60%. - Severe biatrial enlargement. - There is mild to moderate tricuspid valve regurgitation. Findings Left Ventricle Normal left ventricular cavity size. There is normal left ventricular wall thickness. The left ventricular systolic function is normal. The visually estimated ejection fraction is between 55-60%. There is no evidence of regional wall motion abnormalities. Diastolic function is indeterminate on the basis of available data. Peak LV GLS - 14.7%; could be less reliable due to atrial fibrillation. Right Ventricle Normal right ventricular cavity size and systolic function. There is a pacemaker wire seen in the right ventricle. Atria Severe biatrial enlargement. Aortic Valve There is a normal trileaflet aortic valve. There is no aortic valve stenosis. There is no aortic valve regurgitation. Mitral Valve The mitral valve appears normal. There is trace mitral valve regurgitation. There is no mitral valve stenosis. Pulmonic Valve The pulmonic valve is likely normal. Tricuspid Valve There is mild to moderate tricuspid valve regurgitation. There is no evidence of pulmonary hypertension. Great Vessels The aortic annulus, sinuses of valsalva, sino tubular ridge, and asc aorta are normal in size. Venous The inferior vena cava is normal in size and collapses greater than 50% with inspiration. Pericardium/Pleural There is no evidence of pericardial effusion. Prior Study Comparison No significant change compared to prior study dated: 02/22/2015. Measurements 2D Linear Measurements IVSd: 1.02 0.6-0.9/0.6-1.0 cm LVIDd: 4.59 3.9-5.3/4.2-5.9 cm LVIDd Index: 2.80 2.4-3.2/2.2-3.1 cm/m2 LVIDs: 2.86 2.0-3.6 cm LVPWd: 0.90 0.7-1.1 cm Ao Root: 2.70 2.1-3.5 cm LA Diam: 4.20 2.7-3.8/3.0-4.0 cm LAIDs Index: 2.56 1.5-2.3 cm/m2 LV Mass: 186.89 67-162/88-224 g LV Mass Index: 113.96 43-95/49-115 g/m2 LVOT Diam: 2.00 3.0+(-)1.3 cm 2D Systolic Function EF 4C: 53.20 >55% EF 2C: 60.40 >55% EF BiP: 55.60 >55% Mitral Valve MV Pk E: 1.02 MV Decel Time: 191.00 E'Lateral: 12.70 E'Medial: 7.94 E/E' Med: 12.80 E/E' Lat: 8.00 PHT: 56.00 MVA PHT: 3.93 Decel Gilpin: 5.34 Aortic Valve AoV Pk Jose: 1.22 AoV Mn Jose: 0.76 AoV VTI: 0.30 AoV Pk Grad: 6.00 Aov Mn Grad: 3.00 ANASTASIIA Cont.VTI: 1.93 LVOT LVOT Pk Jose: 0.74 LVOT Mn Jose: 0.51 LVOT VTI: 0.19 LVOT Pk Grad: 2.00 LVOT Mn Grad: 1.00 LVOT Diam: 2.00 LVOT Area: 3.14 Diastolic Function MV Pk E: 1.02 E'Medial: 7.94 E/E' Med: 12.80 E' Laterial: 12.70 E/E' Lat: 8.00 Right Ventricle TAPSE (mm): 18.00 TVS' Jose: 11.00 Tricuspid Valve TR Pk Jose: 2.69 TR Pk Grad: 29.00 RA Press: 3.00 RVSP: 32.00 Great Vessels Aorta Ao Root-2D: 2.70 2.0-3.7 cm Ao Asc: 2.90 2.1-3.4 cm Pulmonary Valve PV Pk Jose: 0.83 Peak PV Grad: 3.00 Updated in Other Vendor System with Status of Final David Ellis MD electronically signed on 12/05/2021 3:57:49 PM with status of Final
== END ==
LOC: HO.CARD 16:09
PROVIDERS: PCP Internal Medicine; Visit Provider Internal Medicine
DX: Z01.818 Encounter for other preprocedural examination (principal); C50.919 Malignant neoplasm of unspecified site of unspecified female breast
CPT/HCPCS: 93306; 93356

== ENCOUNTER 2021-12-07 08:47 | Day surgery (SDC) | payer MEDICARE, SELFPAY ==
--- NOTE | ~2021-12-07 | IR_ITS ---
PROCEDURE: IR INSERTION OF TUNNEL CATHETER CLINICAL INFORMATION: Needs port for chemotherapy for left breast cancer. COMPARISON: None TECHNIQUE: Ultrasound fluoroscopic-guided placement of right internal jugular port catheter. All elements of maximal sterile barrier technique followed including use of cap, mask, sterile gown, sterile gloves, a sterile full body drape and hand hygiene. Also followed skin preparation with 2% chlorhexidine for cutaneous antisepsis, and sterile ultrasound preparation with sterile gel and probe cover when applicable. CONSCIOUS SEDATION: The patient received intravenous conscious sedation under my direct supervision. A registered nurse monitored the patient and the patient's vital signs throughout the procedure. The total sedation time was 82 minutes. A total of 2 mg of Versed and 100 mcg fentanyl was given for good effect. FINDINGS: Informed consent was obtained from the patient prior to the procedure. During this process, the procedure and potential alternatives were explained, along with the intended outcome and benefits. The risks of the procedure, as well as the risk of not doing the procedure, were discussed. The patient was given the opportunity to ask questions regarding the procedure and appeared competent to make medical decisions. A signed consent form which documents this discussion was placed in the medical record. Ultrasound evaluation of the neck was performed which demonstrated patency of the right internal jugular vein. Hardcopy ultrasound image was sent to PACS. Using sterile technique and ultrasound guidance a 22-gauge needle was directed into the right jugular vein and guidewire placed down into the right atrium. Following fascial dilatation with sheath placement a 0.035 inch guidewire was positioned within the right atrium. Attention was then turned to creating a port pocket within the upper right anterior chest wall. A skin incision was performed and the pocket blunt dissected out. A tunnel path from the port pocket to the internal jugular puncture site was then blunt dissected. A 6.6 Bahamian single-lumen port catheter was then pulled through the tunnel track. A 7 Bahamian peel-away sheath was then placed over the guidewire in the internal jugular vein. Through the sheath the port catheter was placed with its tip at the cavoatrial junction site as well as the internal jugular puncture site. The catheter was then trimmed to size and connected to the port. The port was then sutured within the port pocket with two, 2-0 monofilament sutures. The port was flushed with heparinized saline. There was good blood return present prior to flushing. A subcuticular 4-0 absorbable suture was used to close the subcuticular layer. Tissue adhesive was then used over the skin of the incision and at the internal jugular puncture site. Patient tolerated procedure without difficulty. IR/IR cvc insert tunnel w prt/rn registry IMPRESSION: Placement of right internal jugular port catheter as described above. Catheter is 21 cm long. Fluoroscopy time: 2.9 minutes. DAP: 314 cGy-cm2. Sedation time: 82 minutes.
[2021-12-07 08:20] VITALS: BMI 23.9
[2021-12-07 09:02] VITALS: BP 169/89; PULSE 78; RESP 18; TEMP 36.6; O2SAT 98
[2021-12-07 09:49] LABS: Basophils Percent Auto 0.1 % (0-2); Hematocrit 41.7 % (37.0-47.0); Imm Gran Abs Auto 0.13 X10*3/uL (0.00-0.03); Imm Gran Pct Auto 0.8 % (0.0-0.4); Lymphocytes Absolute Auto 0.8 X10*3/uL (1.2-4.9); Lymphocytes Percent Auto 4.4 % (20-40); MANUAL DIFF FLAG SCAN; Mean Corpuscular HGB Conc 33.6 g/dl (31.0-35.0); Mean Corpuscular Hemoglobin 29.9 pg (27.0-33.0); Mean Corpuscular Volume 89.1 fL (80.0-98.0); Mean Platelet Volume 10.8 fL (9.4-12.3); Monocytes Absolute Auto 0.1 X10*3/uL (0.1-1.2); Monocytes Percent Auto 0.7 % (2-11); Platelet Count 184 X10*3/uL (160-400); Red Blood Count 4.68 X10*6/uL (4.20-5.50); Red Cell Distribution Width 12.9 % (11.0-16.0); SCAN SMEAR FLAG 1; White Blood Count 17.1 X10*3/uL (4.8-10.8)
[2021-12-07 09:58] LABS: INTERNATIONAL NORM RATIO 0.9 (0.9-1.1); Prothrombin Time 10.3 SEC (10.0-13.1)
[2021-12-07 10:01] LABS: Partial Thromboplastin Time 25.4 SEC (26.0-36.4)
[2021-12-07 10:25] LABS: SLIDE REVIEW VERIFIED
[2021-12-07] MEDS: Lidocaine HCl 2% PF/Epi 1:200 20 ML VIAL INFILTRATI (12:24)
[2021-12-07 13:27] VITALS: BP 165/69; PULSE 75; RESP 15; TEMP 36.4; O2SAT 98
[2021-12-07 13:57] VITALS: BP 140/71; PULSE 69; RESP 16; O2SAT 98
[2021-12-07 14:27] VITALS: BP 137/68; PULSE 76; RESP 14; O2SAT 96
[2021-12-07 14:57] VITALS: BP 156/72; PULSE 67; RESP 16; O2SAT 98
[2021-12-07 15:12] VITALS: BP 152/72; PULSE 69; RESP 16; TEMP 36.4; O2SAT 98
== END 2021-12-07 15:18 | disposition home or self-care (01) ==
PROVIDERS: Radiology Diagnostic Radiology; PCP Internal Medicine; Visit Provider Radiology Diagnostic Radiology
DX: C50.912 Malignant neoplasm of unspecified site of left female breast (principal); Z79.899 Other long term (current) drug therapy; Z91.040 Latex allergy status
CPT/HCPCS: 36415; 36561; 85025; 85610; 85730; 99152; 99153; C1769; C1788; J0690; J1642; J2250; J3010

== ENCOUNTER 2021-12-12 13:21 | Outpatient (REF) | payer MEDICARE, SELFPAY ==
--- NOTE | ~2021-12-12 | CT_ITS ---
EXAMINATION: CT HEAD WITH/WITHOUT CONTRAST CLINICAL INFORMATION: Headaches, breast cancer COMPARISON: None TECHNIQUE: Contiguous axial imaging was performed from the skull base to vertex before and after the administration of 85 mL of Omnipaque [address] examination was performed using dose optimization techniques as appropriate, variously including the following: *Automated exposure control *Adjustment of mA and/or kV according to patient size (this includes techniques or standardized protocols for targeted exams where dose is matched to indication/reason for exam; i.e. extremities or head) *Use of iterative reconstruction technique DLP: 1488 mGy-cm FINDINGS: There is no evidence of acute intracranial hemorrhage or territorial infarction. No abnormal mass-effect or midline shift is seen. Fragoso to white matter differentiation is well preserved. No extra-axial fluid collections are identified. No abnormal contrast enhancement is seen. The ventricles are normal in size. There is no abnormal attenuation within the brain parenchyma. The osseous structures and soft tissues are normal. The mastoid air cells and visualized portions of the paranasal sinuses are well-aerated. CT/CT head/brain wo/w IV con IMPRESSION: No acute intracranial pathology identified.
[2021-12-12] MEDS: iohexoL 350 MG/ML 100 ML INFUS..BTL 85 ML IV (14:50)
== END 2021-12-12 13:22 | disposition home or self-care (01) ==
LOC: HO.CT 13:21
PROVIDERS: PCP Internal Medicine; Visit Provider Internal Medicine
DX: R51.9 Headache, unspecified (principal)
CPT/HCPCS: 70470; Q9967

== ENCOUNTER → 2021-12-14 09:11 | Outpatient (BNVA) | payer MEDICARE, SELFPAY | PROVIDERS: PCP Internal Medicine; Visit Provider Internal Medicine | DX: I48.19 Other persistent atrial fibrillation (principal); R94.31 Abnormal electrocardiogram [ECG] [EKG]; I10 Essential (primary) hypertension; E78.5 Hyperlipidemia, unspecified; Z79.01 Long term (current) use of anticoagulants; Z79.899 Other long term (current) drug therapy; Z95.0 Presence of cardiac pacemaker | CPT/HCPCS: 93005; 99212 ==

== ENCOUNTER 2021-12-26 07:59 | Outpatient (REF) | payer MEDICARE, SELFPAY ==
[2021-12-26 08:20] LABS: Hematocrit 38.8 % (37.0-47.0); Mean Corpuscular HGB Conc 33.5 g/dl (31.0-35.0); Mean Corpuscular Volume 89.6 fL (80.0-98.0); Mean Platelet Volume 9.2 fL (9.4-12.3); Platelet Count 179 X10*3/uL (160-400); Red Blood Count 4.33 X10*6/uL (4.20-5.50); Red Cell Distribution Width 12.7 % (11.0-16.0); White Blood Count 4.9 X10*3/uL (4.8-10.8)
[2021-12-26 08:44] LABS: Alanine Aminotransferase 37 U/L (0-31); Albumin Level 3.8 g/dL (3.5-5.0); Alkaline Phosphatase 91 U/L (39-117); Anion Gap 13 (12-20); Aspartate Amino Transferase 22 U/L (5-31); Bilirubin Total 0.2 mg/dL (0.0-1.0); Blood Urea Nitrogen 19 mg/dL (9-16); Calcium 8.9 mg/dL (8.4-10.2); Carbon Dioxide 26 mmol/L (22-29); Chloride 107 mmol/L (96-108); Estimated Glomerular Filt Rate > 60; Glucose Random 135 mg/dL (60-115); Potassium 5.3 mmol/L (3.3-5.1); Sodium 141 mmol/L (135-145); Total Protein 6.4 g/dL (6.5-8.0)
[2021-12-26 09:09] LABS: Thyroid Stimulating Hormone 1.16 uIU/mL (0.32-4.0)
[2021-12-26 09:34] LABS: Atypical Lymphs Percent Manual 1 % (0-6); Band Neutrophils Percent 2 % (3-5); Basophils Percent Manual 1 % (0-2); Lymphocytes Absolute Manual 1.4 X10*3/uL (1.2-4.9); Lymphocytes Percent Manual 28 % (20-40); Metamyelocytes Percent 1 %; Monocytes Absolute Manual 0.2 X10*3/uL (0.1-1.2); Monocytes Percent Manual 4 % (2-11); Neutrophils Absolute Manual 3.2 X10*3/uL (2.0-8.3); Neutrophils Percent Manual 63 % (45-73)
[2021-12-26 09:35] LABS: Platelet Estimate NORMAL (NORMAL); Platelet Morphology Comment NORMAL; RBC Morphology NORMAL
[2021-12-26 10:45] LABS: Cortisol Random 17.2 ug/dL
== END 2021-12-26 08:00 | disposition home or self-care (01) ==
LOC: HO.LAB 07:59
PROVIDERS: PCP Internal Medicine; Visit Provider Internal Medicine
DX: C50.912 Malignant neoplasm of unspecified site of left female breast (principal)
CPT/HCPCS: 36415; 80053; 82533; 84443; 85007; 85027

== ENCOUNTER → 2022-01-02 13:15 | Outpatient (BNVA) | payer MEDICARE, SELFPAY | PROVIDERS: PCP Internal Medicine; Visit Provider Internal Medicine | DX: R76.8 Other specified abnormal immunological findings in serum (principal) | CPT/HCPCS: 99202 ==

== ENCOUNTER 2022-01-12 11:21 | Emergency (ER) | payer MEDICARE, SELFPAY ==
--- NOTE | ~2022-01-12 | XR_ITS ---
EXAMINATION: XR CHEST CLINICAL INFORMATION: Weakness. COMPARISON: 03/03/2020 chest radiograph. TECHNIQUE: Frontal view of the chest was obtained. FINDINGS: Support devices: Right-sided central venous port with tip terminating in the superior vena cava. Left sided dual-lead pacemaker with leads in the right atrium and right ventricle. No significant abnormality is noted involving the heart, lungs, mediastinum, bony thorax or soft tissues. XR/XR chest 1V IMPRESSION: No acute cardiopulmonary process.
[2022-01-12 11:29] VITALS: BP 130/55; PULSE 84; RESP 18; TEMP 36.6; O2SAT 97; BMI 23.0
--- NOTE | 2022-01-12 16:50 | ED_ITS ---
HPI - General Adult General Chief complaint: General Medical Stated complaint: numbness all over body Time Seen by Provider: 01/12/22 16:50 Source: patient Mode of arrival: ambulatory Limitations: no limitations History of Present Illness HPI narrative: Patient is a 66 year old assigned female at with a history of breast cancer and hepatitis B exposure presenting to the emergency department today with bilateral hand pain and generalized weakness. Patient states that since chemo on Saturday she has had bilateral hand pain and generalized weakness. Patient states that she was started on prophylactic hepatitis B medication and that has caused her to feel much more tired and weak. Patient states that she was supposed to be given something for her hands by her oncologist but nothing went to her pharmacy. Patient denies any dizziness, lightheadedness, abdominal pain, nausea, vomiting, fever, chills, blurry vision, double vision, loss of vision, chest pain, difficulty breathing, shortness of breath, back pain, night sweats, pain with urination, increased urinary frequency, increased urinary urgency, blood in her urine or stool, syncope or a near syncopal episode, recent trauma or falls, bowel incontinence, bladder incontinence, bowel retention, bladder retention, or any other complaints at this time. Onset (ago): day(s) Severity: mild Severity scale (1-10): 3 Relieving factors: none Exacerbating factors: none Associated symptoms: weakness Treatments prior to arrival: none Related Data Home Medications Medication Instructions Recorded Confirmed dexamethasone 4 mg tablet 4 mg PO BID 01/02/22 lancets 33 gauge (OneTouch Delica #100 ea 01/02/22 Plus Lancet) Previous Rx's Medication Instructions Recorded rivaroxaban 20 mg tablet (Xarelto) 20 mg PO DAILY #180 tabs 01/24/21 blood sugar diagnostic #100 ea 02/23/21 blood-glucose meter (OneTouch #1 ea 02/23/21 Ultra2 Meter kit) lancets 28 gauge (OneTouch #100 ea 02/23/21 SureSoft Lancing [employer]) diltiazem HCl 120 mg capsule,24 120 mg PO DAILY #90 caps 06/13/21 hr,extended release ondansetron 8 mg disintegrating 8 mg PO Q8H PRN Nausea #30 tabs 12/04/21 tablet metoprolol tartrate 50 mg tablet 50 mg PO BID 90 days #180 tabs 12/14/21 lisinopril 10 mg tablet 10 mg PO DAILY #90 tabs 12/15/21 omeprazole 20 mg capsule,delayed 20 mg PO DAILY #90 caps 12/15/21 release pravastatin 40 mg tablet 40 mg PO DAILY #90 tabs 12/15/21 tenofovir alafenamide 25 mg tablet 25 mg PO DAILY 90 days #90 tabs 01/02/22 methylprednisolone 4 mg tablets in 4 mg PO DAILY #21 ea 01/08/22 a dose pack (Medrol (Chuckie)) prednisone 20 mg tablet 40 mg PO DAILY 5 days #10 tabs 01/12/22 Allergies Allergy/AdvReac Type Severity Reaction Status Date / Time latex [LATEX] Allergy Intermediate RASH WITH Verified 01/02/22 13:27 CONTACT Review of Systems Constitutional: Constitutional: Reports no additional constitutional complaints, Denies chills, Denies fever(s), Denies night sweats and Reports weakness Eyes: Eyes: Reports no additional eye complaints, Denies blurry vision, Denies change in vision, Denies diplopia, Denies eye discharge, Denies loss of vision and Denies eye pain ENT: Denies dizziness Cardiovascular: Cardiovascular: Reports no additional cardiovascular complaints, Denies chest pain, Denies lightheadedness, Denies Loss of Consciousness and Denies dyspnea Respiratory: Respiratory: Reports no additional respiratory complaints and Denies dyspnea Gastrointestinal: Gastrointestinal: Reports no additional gastrointestinal complaints, Denies abdominal pain, Denies melena, Denies hematochezia, Denies change in bowel habits and Denies change in stool character Genitourinary: Genitourinary: Denies hematuria, Denies urinary frequency, Denies dysuria, Denies urinary incontinence, Denies urinary hesitancy and Denies urinary urgency Musculoskeletal: Musculoskeletal: Reports no additional musculoskeletal complaints, Denies numbness and Denies tingling Integumentary/Breasts: Comments: bilateral hand redness Neurologic: Denies dizziness, Denies loss of vision, Denies numbness, Denies tingling and Reports weakness Psychiatric: Psychiatric: Reports no additional psychiatric complaints Endocrine: Endocrine: Reports no additional endocrine complaints Hematologic/Lymphatic: Hematologic/Lymphatic: Reports no additional hematologic/lymphatic complaints Allergic/Immunologic: Allergic/Immunologic: Reports no additional allergic/immunologic complaints PMFSH Past Medical History Attestation statement: The following information was validated with the patient. Source: old records reviewed Medical History Abnormal ultrasound of breast Essential hypertension GERD (gastroesophageal reflux disease) Hypercholesteremia Pacemaker (~2008) PAF (paroxysmal atrial fibrillation) PUD (peptic ulcer disease) Screening for breast cancer Vertigo Surgical History History of appendectomy (~2018) History of cholecystectomy (~2014) History of permanent cardiac pacemaker placement (~2008) History of tubal ligation Family History Family History Mother No problems noted. Father No problems noted. 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 Cognitive needs: No Hearing needs: No Vision needs: Yes Physical Exam ED Vital Signs: Vital Signs - 24 hr 01/12/22 11:29 01/12/22 17:19 01/12/22 17:46 Temperature 98 F 97.6 F 97.8 F Pulse Rate 84 86 64 Respiratory Rate 18 16 16 Blood Pressure 130/55 L 160/85 H 152/50 H Pulse Oximetry 97 98 97 Oxygen Delivery Method Room Air Room Air Room Air BMI result Body Mass Index 23.0 Const General: cooperative, no acute distress, alert and awake Nutritional Appearance: well nourished Orientation/consciousness: patient oriented x3 Limitations: no limitations [facility] Head: Yes normal to inspection and Yes atraumatic Ears: hearing grossly normal bilaterally and external ears normal General nose exam: Normal external nose present, no nasal discharge noted and no epistaxis Face and sinus: Yes normal facial exam, No abrasion and No laceration Mouth: Normal oral and palatal mucosa present, no drooling and no muffled voice Eyes General: appearance normal, both eyes and all related structures Periorbital: periorbital findings normal Eyelids: Yes eyelids normal Conjunctivae: conjunctivae normal Pupils: Equal, round and reactive pupils present EOM: EOMs intact bilaterally Neck Neck: Yes normal visual inspection, Yes full ROM and Yes no lymphadenopathy Chest Chest palpation & inspection: normal inspection of the chest Resp Effort & Inspection: normal respiratory effort and able to speak in complete sentences Auscultation: clear to auscultation bilaterally Cardio Rate: regular rate Rhythm: regular rhythm GI Inspection: Yes normal to inspection Skin Other: bilateral hand redness Neuro General: patient oriented x3 and moves all extremities Cranial nerves: Yes Equal, round and reactive pupils present Cognition (Neuro): normal cognition Motor exam (neuro): 5/5 motor strength present throughout Sensory Exam: Normal double simultaneous stimulation for sensation Coordination: [id number] test normal Extrem General: Yes normal to inspection, Yes full ROM and Yes capillary refill normal Psych Appearance: grossly normal Mental Status: mental status grossly normal Affect: normal affect Attitude: cooperative Thought process: Normal thought process present Thought content: Normal thought content present Insight: Good insight present (Psych) Medical Decision Making MDM Narrative Medical decision making narrative: Patient is a 66 year old assigned female at with a history of breast cancer, atrial fibrillation, and hepatitis B exposure presenting to the emergency department today with bilateral hand redness and weakness. Patient's physical exam showed bilateral hand redness, consistent with a vasculitis. Patient's blood work was unremarkable. Patient's EKG showed atrial fibrillation. Patient's chest x-ray showed no acute process. Patient's hands were previously evaluated by the heme/onc provider however, the medrol dose pack they attempted to send into the pharmacy did not get sent. I spoke to the GI specialist compensation manager who recommended the patient continue on the medication she was previously prescribed because the risk of rebound hepatitis B is too high. I explained my physical exam findings as well as all test results to the patient. I answered all questions asked by the patient. I stressed the importance of the patient taking her medication as prescribed. I stressed the importance of the patient following up with her primary care provider, oncologist, and GI specialist. I stressed the importance of the patient returning to the emergency department immediately if her symptoms were to worsen or if she were to develop any dizziness, shortness of breath, difficulty breathing, chest pain, blurry vision, loss of vision, nausea, vomiting, abdominal pain, fever, chills, back pain, or any other complaints. Patient verbalized agreement and understanding with this treatment plan and discharge. Medical Records Medical records reviewed: Yes I reviewed the patient's medical records. Lab Data Lab results reviewed: Yes I reviewed the patient's lab results. Result diagrams: 01/12/22 17:35 01/12/22 17:36 Labs: Lab Results 01/12/22 01/12/22 01/12/22 Range/Units 17:35 17:35 17:36 WBC 6.6 (4.8-10.8) X10*3/uL RBC 4.16 L (4.20-5.50) X10*6/uL Hgb 12.5 (12.0-16.0) g/dl Hct 36.8 L (37.0-47.0) % MCV 88.5 (80.0-98.0) fL MCH 30.0 (27.0-33.0) pg MCHC 34.0 (31.0-35.0) g/dl RDW 13.2 (11.0-16.0) % Plt Count 199 (160-400) X10*3/uL MPV 9.3 L (9.4-12.3) fL Immature Gran % (Auto) 1.7 H (0.0-0.4) % Neut % (Auto) 68.0 (45-73) % Lymph % (Auto) 27.1 (20-40) % [place] % (Auto) 3.0 (2-11) % Eos % (Auto) 0.2 (0-4) % Baso % (Auto) 0.0 (0-2) % Lymph # (Auto) 1.8 (1.2-4.9) X10*3/uL [place] # (Auto) 0.2 (0.1-1.2) X10*3/uL Eos # (Auto) 0.0 (0.0-0.4) X10*3/uL Baso # (Auto) 0.0 (0.0-0.2) X10*3/uL Abs Immat Gran (auto) 0.11 H (0.00-0.03) X10*3/uL Absolute Neuts (auto) 4.5 (2.0-8.3) x10*3/uL Absolute Nucleated RBC 0.000 (0.0-0.012) X10*3/uL Nucleated RBC % (auto) 0.0 (0.0-0.2) /100WBC Sodium 141 (135-145) mmol/L Potassium 4.4 (3.3-5.1) mmol/L Chloride 102 (96-108) mmol/L Carbon Dioxide 27 (22-29) mmol/L Anion Gap 16 (12-20) BUN 22 H D (9-16) mg/dL Creatinine 0.60 (0.5-1.4) mg/dL Estim Creat Clear Calc 75.2 Estimated GFR > 60 Random Glucose 101 (60-115) mg/dL Calcium 9.1 (8.4-10.2) mg/dL Magnesium 2.2 (1.6-2.6) mg/dL Total Bilirubin 0.6 (0.0-1.0) mg/dL AST 23 (5-31) U/L ALT 42 H (0-31) U/L Alkaline Phosphatase 82 (39-117) U/L Troponin I High Sens 7.9 (<3.5-17.0) ng/L B-Natriuretic Peptide 86 (<100) pg/mL Total Protein 6.8 (6.5-8.0) g/dL Albumin 4.1 (3.5-5.0) g/dL Imaging Data Chest x-ray: Attestation: I personally reviewed and interpreted this imaging study as f ollows: My impression: No acute process. Radiologist's impression: EXAMINATION: XR CHEST CLINICAL INFORMATION: Weakness. COMPARISON: 03/03/2020 chest radiograph. TECHNIQUE: Frontal view of the chest was obtained. FINDINGS: Support devices: Right-sided central venous port with tip terminating in the superior vena cava. Left sided dual-lead pacemaker with leads in the right atrium and right ventricle. No significant abnormality is noted involving the heart, lungs, mediastinum, bony thorax or soft tissues. XR/XR chest 1V IMPRESSION: No acute cardiopulmonary process. Dictated By: Can Hare MD Signed By: Electronically signed by Can Hare MD 01/12/22 5305 ECG Data Attestation: I personally reviewed and interpreted this ECG as follows: Prior ECG tracings: available for review Interpretation: Vent. Rate: 073 BPM ? ? Atrial Rate: 000 BPM P-R Int: 000 ms? QRS Dur: 074 ms QT Int: 380 ms ? ? ? P-R-T Axes: 000 006 -86 degrees QTc Inc: 418 ms ? Atrial fibrillation ST & T wave abnormality, consider inferolateral ischemia Abnormal ECG When compared with ECG of 03-MAR-2020 14:59, Electronic ventricular pacemaker has replaced Atrial fibrillation DD/ 40 Discharge Plan Discharge Clinical Impression: Vasculitis Patient Disposition: Home, Self-Care Additional Instructions: Follow up with your primary care provider, oncologist, and GI specialist. Return to the emergency department immediately if your symptoms worsen or if you develop any dizziness, shortness of breath, difficulty breathing, chest pain, blurry vision, loss of vision, nausea, vomiting, abdominal pain, fever, chills, back pain, or any other complaints. Prescriptions: New prednisone 20 mg tablet 40 mg PO DAILY 5 Days Qty: 10 0RF No Action Xarelto 20 mg tablet 20 mg PO DAILY Qty: 180 3RF (DME) blood-glucose meter [[employer] Ultra2 Meter] Kit See Rx Instructions .ROUTE .MEDSUPPLY Qty: 1 0RF Rx Instructions: As directed check the blood sugar once a day (DME) blood sugar diagnostic Strip See Rx Instructions .ROUTE .MEDSUPPLY Qty: 100 3RF Rx Instructions: As directed check the blood sugar once a day (DME) lancets [[employer] SureSoft Lancing Dev] 28 gauge misc See Rx Instructions .Route Qty: 100 3RF Rx Instructions: As directed check the blood sugar once a day lisinopril 10 mg tablet 10 mg PO DAILY Qty: 90 3RF pravastatin 40 mg tablet 40 mg PO DAILY Qty: 90 3RF omeprazole 20 mg capsule,delayed release(DR/EC) 20 mg PO DAILY Qty: 90 3RF ondansetron 8 mg Tablet,Disintegrating 8 mg PO Q8H PRN (Reason: Nausea) Qty: 30 3RF methylprednisolone [Medrol (Chuckie)] 4 mg Tablets,Dose Pack 4 mg PO DAILY Qty: 21 0RF Rx Instructions: To be tapered as directed on the dose pack. diltiazem HCl 120 mg capsule,extended release 24 hr 120 mg PO DAILY Qty: 90 3RF metoprolol tartrate 50 mg tablet 50 mg PO BID 90 Days Qty: 180 3RF dexamethasone 4 mg tablet 4 mg PO BID Rx Instructions: for 2 days after chemo (DME) lancets [[employer] Delica Plus Lancet] 33 gauge misc See Rx Instructions .ROUTE DAILY Qty: 100 Rx Instructions: As directed tenofovir alafenamide 25 mg tablet 25 mg PO DAILY 90 Days Qty: 90 2RF Rx Instructions: must administer with a meal/food Referrals: Renate Mcgill MD [Physician] - PoMaurilio MD [Primary Care Provider] - Grecia Carrasco MD [Physician] - Interventions: ED Discharge Assessment Last Done: 01/12/22 19:14 Discharge Date/Time: 01/12/22 19:16 Print Language: Persian
--- NOTE | 2022-01-12 16:57 | ECG_ITS ---
Test Reason : KNUMBNESS Blood Pressure : / mmHG Vent. Rate : 073 BPM Atrial Rate : 000 BPM P-R Int : 000 ms QRS Dur : 074 ms QT Int : 380 ms P-R-T Axes : 000 006 -86 degrees QTc Int : 418 ms Atrial fibrillation with occasional ventricular-paced complexes ST & T wave abnormality, consider inferolateral ischemia Abnormal ECG When compared with ECG of 03-MAR-2020 14:59, T wave inversion less evident in Inferior leads Anterolateral leads with occasional Electronic ventricular pacemaker beats Referred By: Deborah Patel Electronically Signed By:NAPOLEON PICKARD MD
[2022-01-12 17:19] VITALS: BP 160/85; PULSE 86; RESP 16; TEMP 36.4; O2SAT 98
[2022-01-12 17:39] LABS: MANUAL DIFF FLAG NO
[2022-01-12 17:41] LABS: Eosinophils Percent Auto 0.2 % (0-4); Hematocrit 36.8 % (37.0-47.0); Hemoglobin 12.5 g/dl (12.0-16.0); Imm Gran Abs Auto 0.11 X10*3/uL (0.00-0.03); Imm Gran Pct Auto 1.7 % (0.0-0.4); Lymphocytes Absolute Auto 1.8 X10*3/uL (1.2-4.9); Lymphocytes Percent Auto 27.1 % (20-40); Mean Corpuscular Volume 88.5 fL (80.0-98.0); Mean Platelet Volume 9.3 fL (9.4-12.3); Monocytes Absolute Auto 0.2 X10*3/uL (0.1-1.2); Neutrophils Absolute Auto 4.5 x10*3/uL (2.0-8.3); Platelet Count 199 X10*3/uL (160-400); Red Blood Count 4.16 X10*6/uL (4.20-5.50); Red Cell Distribution Width 13.2 % (11.0-16.0); White Blood Count 6.6 X10*3/uL (4.8-10.8)
[2022-01-12] MEDS: predniSONE 20 MG TABLET 40 MG PO (17:44)
[2022-01-12 17:46] VITALS: BP 152/50; PULSE 64; RESP 16; TEMP 36.6; O2SAT 97
[2022-01-12 17:59] LABS: Alanine Aminotransferase 42 U/L (0-31); Albumin Level 4.1 g/dL (3.5-5.0); Alkaline Phosphatase 82 U/L (39-117); Anion Gap 16 (12-20); Aspartate Amino Transferase 23 U/L (5-31); Bilirubin Total 0.6 mg/dL (0.0-1.0); Blood Urea Nitrogen 22 mg/dL (9-16); Calcium 9.1 mg/dL (8.4-10.2); Carbon Dioxide 27 mmol/L (22-29); Chloride 102 mmol/L (96-108); Creatinine Clr Calc Pharmacy 75.2; Estimated Glomerular Filt Rate > 60; Glucose Random 101 mg/dL (60-115); Magnesium 2.2 mg/dL (1.6-2.6); Potassium 4.4 mmol/L (3.3-5.1); Sodium 141 mmol/L (135-145); Total Protein 6.8 g/dL (6.5-8.0)
[2022-01-12 18:06] LABS: B Type Natriuretic Peptide 86 pg/mL (<100); Troponin-I High Sensitivity 7.9 ng/L (<3.5-17.0)
[2022-01-18 13:11] LABS: CK-BB None Detected (None Detected); CK-MB 0 % (<5); CK-MM 100 % (95-100); Creatine Kinase,Total,Serum 24 U/L (29-143)
== END 2022-01-12 19:16 | disposition home or self-care (01) ==
PROVIDERS: Physician Assistant Medical; Emergency Provider Emergency Medicine Emergency Medical Services; PCP Internal Medicine
DX: I77.6 Arteritis, unspecified (principal); R06.02 Shortness of breath; R20.0 Anesthesia of skin; I48.91 Unspecified atrial fibrillation; Z79.899 Other long term (current) drug therapy
CPT/HCPCS: 36415; 71045; 80053; 82552; 83735; 83880; 84484; 85025; 93005; 99283; 99284

== ENCOUNTER 2022-01-27 16:06 | Emergency (ER) | payer MEDICARE, SELFPAY ==
[2022-01-27 16:11] VITALS: BP 130/60; BP 95/41; PULSE 74; PULSE 80; RESP 18; TEMP 36.9; O2SAT 96; O2SAT 97; BMI 24.0
--- NOTE | 2022-01-27 17:28 | ED_ITS ---
HPI - General Adult General Chief complaint: General Medical Stated complaint: bilateral leg pain Time Seen by Provider: 01/27/22 16:06 Source: patient, family and EMS History of Present Illness HPI narrative: 66-year-old female with invasive ductal carcinoma of the left breast presents to the emergency department today with bilateral lower extremity pain. Patient states the pain is so severe that she cannot walk. The patient states that the pain started approximately 3 days ago, and has been progressively worsening. The patient currently is on Keytruda, Taxol and carboplatin. She states that she called her oncologist, but was advised to come to the emergency department. Onset (ago): day(s) (4) Location: lower extremity Radiation: non-radiation Severity: severe Severity scale (1-10): 9 Quality: burning, stabbing and sharp Pain Consistency: constant Relieving factors: none Exacerbating factors: none Associated symptoms: denies other symptoms Related Data Home Medications Medication Instructions Recorded Confirmed dexamethasone 4 mg tablet 4 mg PO BID 01/02/22 02/16/22 lancets 33 gauge (OneTouch Delica #100 ea 01/02/22 02/16/22 Plus Lancet) tenofovir alafenamide 25 mg tablet 1 tab PO DAILY 01/30/22 02/16/22 (Vemlidy) Previous Rx's Medication Instructions Recorded blood sugar diagnostic #100 ea 02/23/21 blood-glucose meter (OneTouch #1 ea 02/23/21 Ultra2 Meter kit) lancets 28 gauge (OneTouch #100 ea 02/23/21 SureSoft Lancing Devices) diltiazem HCl 120 mg capsule,24 120 mg PO DAILY #90 caps 06/13/21 hr,extended release ondansetron 8 mg disintegrating 8 mg PO Q8H PRN Nausea #30 tabs 12/04/21 tablet lisinopril 10 mg tablet 10 mg PO DAILY #90 tabs 12/15/21 pravastatin 40 mg tablet 40 mg PO DAILY #90 tabs 12/15/21 tenofovir alafenamide 25 mg tablet 25 mg PO DAILY 90 days #90 tabs 01/02/22 gabapentin 300 mg capsule 300 mg PO BID #60 caps 01/29/22 rivaroxaban 20 mg tablet (Xarelto) 20 mg PO DAILY #180 tabs 02/13/22 flash glucose scanning reader #1 ea 02/16/22 (FreeStyle Jesse 2 [place]) flash glucose sensor (FreeStyle #6 kits 02/16/22 Jesse 2 Sensor kit) metformin 500 mg tablet 500 mg PO BIDWMEAL #60 tabs 02/16/22 metoprolol tartrate 50 mg tablet 25 mg PO BID 90 days #90 tabs 02/16/22 omeprazole 40 mg capsule,delayed 40 mg PO DAILY 90 days #90 caps 02/16/22 release Allergies Allergy/AdvReac Type Severity Reaction Status Date / Time latex [LATEX] Allergy Intermediate RASH WITH Verified 02/16/22 16:16 CONTACT Review of Systems Constitutional: Constitutional: Denies chills, Denies fever(s), Denies headache(s) and Denies malaise Eyes: Eyes: Reports no additional eye complaints ENT: Reports system reviewed and no additional complaints, except as documented, Denies vertigo, Denies dizziness and Denies headache(s) Cardiovascular: Cardiovascular: Denies chest pain, Denies rapid heart rate, Denies lightheadedness and Denies palpitations Respiratory: Respiratory: Denies cough and Denies wheezing Gastrointestinal: Gastrointestinal: Reports no additional gastrointestinal complaints Genitourinary: Genitourinary: Reports no additional female genitourinary complaints Musculoskeletal: Musculoskeletal: Reports tingling Integumentary/Breasts: Skin/Breast: Reports as per HPI, Denies swelling, Denies change in pigmentation, Denies pruritus and Denies erythema Neurologic: Denies Abnormal speech present, Denies vertigo, Denies dizziness, Denies headache(s), Denies restless legs, Reports tingling and Denies paresthesias Endocrine: Endocrine: Denies flushing and Denies palpitations Allergic/Immunologic: Allergic/Immunologic: Denies wheezing [facility] Past Medical History Attestation statement: The following information was validated with the patient. [facility] Narrative: Past medical history of hepatitis-B, persistent atrial fibrillation, type 2 diabetes Source: old records reviewed and obtained from family Medical History Abnormal ultrasound of breast Essential hypertension GERD (gastroesophageal reflux disease) Hypercholesteremia Pacemaker (~2008) PAF (paroxysmal atrial fibrillation) PUD (peptic ulcer disease) Screening for breast cancer Vertigo Surgical History History of appendectomy (~2017) History of cholecystectomy (~2014) History of permanent cardiac pacemaker placement (~2008) History of tubal ligation Family History Family History Mother No problems noted. Father No problems noted. 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 Const General: cooperative and acute distress mild; No anxious Orientation/consciousness: patient oriented x3 HENMT Head: Yes normal to inspection, Yes normocephalic and Yes atraumatic Ears: hearing grossly normal bilaterally and external ears normal General nose exam: Normal external nose present Face and sinus: Yes normal facial exam Eyes Conjunctivae: conjunctivae normal Sclerae: sclerae normal Pupils: Equal, round and reactive pupils present EOM: EOMs intact bilaterally Neck Neck: Yes normal visual inspection and Yes full ROM Chest Chest palpation & inspection: normal inspection of the chest Resp Effort & Inspection: normal respiratory effort and no cough Cardio Rate: regular rate Rhythm: regular rhythm GI Inspection: Yes normal to inspection Back/Spine/Pelvis Cervical Spine: normal cervical lordosis and cervical ROM normal Skin General skin exam: no rashes or lesions noted and no jaundice Neuro General: patient oriented x3 and Unable to assess gait Cranial nerves: Yes Equal, round and reactive pupils present and Yes Bilaterally intact EOM present Cognition (Neuro): normal cognition Speech: No Abnormal speech present Gait exam (Neuro): Unable to assess gait Extrem General: No cyanosis and No edema Medications Administered Discontinued Medications Generic Name Dose Route Start Last Admin Trade Name Freq PRN Reason Stop Dose Admin Fentanyl 25 mcg 01/27/22 17:27 01/27/22 17:51 Fentanyl Citrate/Pf 100 Mcg/2 Ml Vial IVPUSH 25 mcg Q30M PRN Administration Pain, Severe (Pain Scale 7-10) Protocol Fentanyl 25 mcg 01/27/22 21:51 01/27/22 21:58 Fentanyl Citrate/Pf 100 Mcg/2 Ml Vial IVPUSH 01/27/22 21:52 25 mcg ONCE ONE Administration Protocol Medical Decision Making MDM Narrative Medical decision making narrative: 66-year-old female with past medical history of atrial fibrillation and invasive ductal carcinoma of the left breast presents to the emergency room with bilateral lower extremity pain. Patient is currently taking carboplatin, Taxol, and Keytruda. The Keytruda is most likely the cause of the patient's painful peripheral neuropathy. Will administer pain medication and check laboratories to evaluate for electrolyte abnormalities. Lab Data Result diagrams: 01/27/22 18:02 01/27/22 18:02 Labs: Lab Results 01/27/22 01/27/22 Range/Units 18:02 18:02 WBC 7.7 (4.8-10.8) X10*3/uL RBC 3.58 L (4.20-5.50) X10*6/uL Hgb 10.8 L (12.0-16.0) g/dl Hct 31.3 L (37.0-47.0) % MCV 87.4 (80.0-98.0) fL MCH 30.2 (27.0-33.0) pg MCHC 34.5 (31.0-35.0) g/dl RDW 13.8 (11.0-16.0) % Plt Count 135 L (160-400) X10*3/uL MPV 9.5 (9.4-12.3) fL Immature Gran % (Auto) 1.4 H (0.0-0.4) % Neut % (Auto) 80.6 H (45-73) % Lymph % (Auto) 14.7 L (20-40) % Scurry % (Auto) 2.5 (2-11) % Eos % (Auto) 0.5 (0-4) % Baso % (Auto) 0.3 (0-2) % Lymph # (Auto) 1.1 L (1.2-4.9) X10*3/uL Scurry # (Auto) 0.2 (0.1-1.2) X10*3/uL Eos # (Auto) 0.0 (0.0-0.4) X10*3/uL Baso # (Auto) 0.0 (0.0-0.2) X10*3/uL Abs Immat Gran (auto) 0.11 H (0.00-0.03) X10*3/uL Absolute Neuts (auto) 6.2 (2.0-8.3) x10*3/uL Absolute Nucleated RBC 0.000 (0.0-0.012) X10*3/uL Nucleated RBC % (auto) 0.0 (0.0-0.2) /100WBC Sodium 131 L (135-145) mmol/L Potassium 4.2 (3.3-5.1) mmol/L Chloride 96 (96-108) mmol/L Carbon Dioxide 24 (22-29) mmol/L Anion Gap 15 (12-20) BUN 16 (9-16) mg/dL Creatinine 0.58 (0.5-1.4) mg/dL Estim Creat Clear Calc 77.8 Estimated GFR > 60 Random Glucose 135 H (60-115) mg/dL Calcium 8.3 L (8.4-10.2) mg/dL Magnesium 1.9 (1.6-2.6) mg/dL Discharge Plan Discharge Clinical Impression: Bilateral leg pain, Paresthesia of both lower extremities Patient Disposition: Home, Self-Care Instructions: Paresthesia (ED) Additional Instructions: I believe your pain in your legs is caused by your Taxol, which is known to cause peripheral neuropathies. I would advise you to call your oncology physician on Saturday, to determine whether or not you should be changed to a different medication. You should return to the emergency department if your pain worsens significantly, or if you start having other symptoms such as numbness or tingling in the private areas, urinary or fecal incontinence, or any other emergency. Prescriptions: No Action (DME) blood-glucose meter [OneTouch Ultra2 Meter] Kit See Rx Instructions .ROUTE .MEDSUPPLY Qty: 1 0RF Rx Instructions: As directed check the blood sugar once a day (DME) blood sugar diagnostic Strip See Rx Instructions .ROUTE .MEDSUPPLY Qty: 100 3RF Rx Instructions: As directed check the blood sugar once a day (DME) lancets [OneTouch SureSoft Lancing Dev] 28 gauge misc See Rx Instructions .Route Qty: 100 3RF Rx Instructions: As directed check the blood sugar once a day lisinopril 10 mg tablet 10 mg PO DAILY Qty: 90 3RF pravastatin 40 mg tablet 40 mg PO DAILY Qty: 90 3RF Xarelto 20 mg tablet 20 mg PO DAILY Qty: 180 3RF ondansetron 8 mg Tablet,Disintegrating 8 mg PO Q8H PRN (Reason: Nausea) Qty: 30 3RF gabapentin 300 mg Capsule 300 mg PO BID Qty: 60 3RF Vemlidy 25 mg tablet 1 tab PO DAILY diltiazem HCl 120 mg capsule,extended release 24 hr 120 mg PO DAILY Qty: 90 3RF (DME) FreeStyle Jesse 2 Sensor Kit See Rx Instructions .ROUTE .MEDSUPPLY Qty: 6 0RF Rx Instructions: As directed (DME) FreeStyle Jesse 2 [place] Misc See Rx Instructions .ROUTE .MEDSUPPLY Qty: 1 0RF Rx Instructions: As directed metoprolol tartrate 50 mg tablet 25 mg PO BID 90 Days Qty: 90 3RF metformin 500 mg tablet 500 mg PO BIDWMEAL Qty: 60 3RF omeprazole 40 mg capsule,delayed release(DR/EC) 40 mg PO DAILY 90 Days Qty: 90 3RF dexamethasone 4 mg tablet 4 mg PO BID Rx Instructions: for 2 days after chemo (DME) lancets [OneTouch Delica Plus Lancet] 33 gauge misc See Rx Instructions .ROUTE DAILY Qty: 100 Rx Instructions: As directed tenofovir alafenamide 25 mg tablet 25 mg PO DAILY 90 Days Qty: 90 2RF Rx Instructions: must administer with a meal/food Referrals: Maurilio Carias MD [Primary Care Provider] - 2 days Interventions: ED Discharge Assessment Last Done: 01/28/22 00:34 Discharge Date/Time: 01/28/22 00:35
[2022-01-27] MEDS: fentaNYL citrate/PF 100 MCG/2 ML VIAL 25 MCG IVPUSH ×2 (17:51→21:58)
[2022-01-27 18:09] LABS: MANUAL DIFF FLAG NO
[2022-01-27 18:10] LABS: Basophils Percent Auto 0.3 % (0-2); Eosinophils Percent Auto 0.5 % (0-4); Hematocrit 31.3 % (37.0-47.0); Hemoglobin 10.8 g/dl (12.0-16.0); Imm Gran Abs Auto 0.11 X10*3/uL (0.00-0.03); Imm Gran Pct Auto 1.4 % (0.0-0.4); Lymphocytes Absolute Auto 1.1 X10*3/uL (1.2-4.9); Lymphocytes Percent Auto 14.7 % (20-40); Mean Corpuscular HGB Conc 34.5 g/dl (31.0-35.0); Mean Corpuscular Hemoglobin 30.2 pg (27.0-33.0); Mean Corpuscular Volume 87.4 fL (80.0-98.0); Mean Platelet Volume 9.5 fL (9.4-12.3); Monocytes Absolute Auto 0.2 X10*3/uL (0.1-1.2); Monocytes Percent Auto 2.5 % (2-11); Neutrophils Absolute Auto 6.2 x10*3/uL (2.0-8.3); Neutrophils Percent Auto 80.6 % (45-73); Platelet Count 135 X10*3/uL (160-400); Red Blood Count 3.58 X10*6/uL (4.20-5.50); Red Cell Distribution Width 13.8 % (11.0-16.0); White Blood Count 7.7 X10*3/uL (4.8-10.8)
[2022-01-27 18:30] LABS: Anion Gap 15 (12-20); Blood Urea Nitrogen 16 mg/dL (9-16); Calcium 8.3 mg/dL (8.4-10.2); Carbon Dioxide 24 mmol/L (22-29); Chloride 96 mmol/L (96-108); Creatinine Clr Calc Pharmacy 77.8; Estimated Glomerular Filt Rate > 60; Glucose Random 135 mg/dL (60-115); Magnesium 1.9 mg/dL (1.6-2.6); Potassium 4.2 mmol/L (3.3-5.1); Sodium 131 mmol/L (135-145)
[2022-01-27 22:00] VITALS: BP 111/53; PULSE 62; RESP 18; O2SAT 98
[2022-01-27 23:39] VITALS: BP 105/49; PULSE 73; RESP 14; TEMP 36.9; O2SAT 100
== END 2022-01-28 00:35 | disposition home or self-care (01) ==
PROVIDERS: Emergency Provider Emergency Medicine; PCP Internal Medicine
DX: M79.605 Pain in left leg (principal); M79.604 Pain in right leg; R20.2 Paresthesia of skin; C50.912 Malignant neoplasm of unspecified site of left female breast; I10 Essential (primary) hypertension; I48.0 Paroxysmal atrial fibrillation; E78.5 Hyperlipidemia, unspecified; Z95.0 Presence of cardiac pacemaker; Z79.01 Long term (current) use of anticoagulants; Z79.899 Other long term (current) drug therapy; Z79.02 Long term (current) use of antithrombotics/antiplatelets
CPT/HCPCS: 36415; 80048; 83735; 85025; 96374; 96376; 99284; J3010

== ENCOUNTER 2022-02-19 09:13 | Outpatient (REF) | payer MEDICARE, SELFPAY ==
[2022-02-19 10:03] LABS: Immature Retic Fraction 32.2 % (3.0-15.9); Retic HGB Equivalent 37.2 pg (30.0-35.0); Reticulocyte Percent 7.9 % (0.5-1.8); Reticulocytes Absolute 0.279 X10*6/uL (0.026-0.095)
[2022-02-19 10:26] LABS: B Type Natriuretic Peptide 95 pg/mL (<100)
[2022-02-19 11:35] LABS: Folate 18.9 ng/mL (> or = 4.0); Vitamin B12 1108 pg/mL (200-900)
[2022-02-19 14:21] LABS: Creatinine Urine 36.22 mg/dL; Microalbum/Creatinine Ratio Ur 19.3 ug/mg cr
== END 2022-02-19 09:14 | disposition home or self-care (01) ==
LOC: HO.LAB 09:13
PROVIDERS: PCP Internal Medicine; Visit Provider Internal Medicine
DX: E11.65 Type 2 diabetes mellitus with hyperglycemia (principal)
CPT/HCPCS: 36415; 80053; 80061; 82043; 82306; 82607; 82728; 82746; 83540; 83880; 84439; 85045

== ENCOUNTER 2022-03-20 10:17 | Outpatient (REF) | payer MEDICARE, SELFPAY ==
--- NOTE | ~2022-03-20 | XR_ITS ---
EXAMINATION: XR FACIAL BONES CLINICAL INFORMATION: Pain upper and lower jaw for 2 days COMPARISON: None TECHNIQUE: 3 views of the facial bones were obtained. FINDINGS: The paranasal sinuses are well-aerated and clear. There is no visible maxillofacial, nasal or mandible fracture. The TM joints are not optimally visualized. Small lucencies are seen in para midline frontal bone. The mastoid sinuses are clear. XR/XR facial bones min 3V IMPRESSION: 1. Unremarkable facial bones. 2. The TM joints are not optimally visualized. 3. The paranasal sinuses are clear.
== END 2022-03-20 10:18 | disposition home or self-care (01) ==
LOC: HO.XRAY 10:17
PROVIDERS: PCP Internal Medicine; Visit Provider Internal Medicine Medical Oncology
DX: R68.84 Jaw pain (principal)
CPT/HCPCS: 70150

== ENCOUNTER 2022-05-11 13:03 | Outpatient (REF) | payer MEDICARE, SELFPAY ==
--- NOTE | ~2022-05-11 | MM_ITS ---
EXAMINATION: MM DIAGNOSTIC DIGITAL BREAST TOMOSYNTHESIS, LEFT US DIAGNOSTIC ULTRASOUND BREAST, LEFT CLINICAL INFORMATION: Status post neoadjuvant chemotherapy for left breast cancer (poorly differentiated invasive carcinoma with ductal features and squamous differentiation; metastatic carcinoma left axillary node). Assess response to therapy. COMPARISON: Mammography and left breast ultrasound 11/02/2021; ultrasound-guided left core biopsy breast and axilla 11/07/2021. TECHNIQUE: Digital breast tomosynthesis is performed in both the craniocaudal and mediolateral oblique views along with computer-aided detection (CAD). Synthesized 2D images are generated from the tomosynthesis. Additional left MLO view is provided. Ultrasound left breast is targeted to the known mass mid 3:00 position as well as additional imaging left axilla. Grayscale imaging and color Doppler are performed without and with harmonics. FINDINGS: Mammography: There are scattered areas of fibroglandular density (ACR BI-RADS breast composition Category b). The left breast cancer based 3:00 position is substantially decreased in size. Primary lesion measures approximately 1 cm compared with prior mammography approximately 2.3 cm. The left axillary node is also substantially decreased, measuring approximately 0.5 x 1.1 cm compared with prior measurements 2.7 x 2.3 cm. There are biopsy clip markers overlying both lesions. Again, there are scattered calcifications in the area of the mass. Mild nipple retraction present. No interval skin thickening or new parenchymal lesion. Pacemaker overlies the posterior left axilla. Ultrasound: The breasts mass 3:00 position is decreased in size, current dimensions approximately 1.3 x 0.9 x 1.0 cm. This is compared with prior ultrasound measurements 2.6 x 2.0 x 2.5 cm. The biopsy clip marker is demonstrated within the lesion. Ultrasound left axilla demonstrates the node to be decreased in size, currently 1.1 x 0.4 cm compared with prior measurements 1.3 x 0.9 cm. The biopsy clip marker is seen in the node. Results are discussed with the patient at time of visit. MM/MM tomosynthesis diagnostic LT IMPRESSION: -The known left breast cancer and left axillary node are substantially decreased in size. -No new parenchymal lesion. ASSESSMENT: BI-RADS 6: Known Biopsy-Proven Malignancy RECOMMENDATION: Continue with management plans for the left breast cancer.
== END 2022-05-11 13:04 | disposition home or self-care (01) ==
LOC: HO.MAMMO 13:03
PROVIDERS: PCP Internal Medicine; Visit Provider Internal Medicine
DX: C50.812 Malignant neoplasm of overlapping sites of left female breast (principal)
CPT/HCPCS: 76641; 77061; 77065

== ENCOUNTER → 2022-05-17 12:54 | Outpatient (BNVA) | payer MEDICARE, SELFPAY | PROVIDERS: PCP Internal Medicine; Visit Provider Surgery | DX: C50.912 Malignant neoplasm of unspecified site of left female breast (principal) | CPT/HCPCS: 99212 ==

== ENCOUNTER → 2022-05-25 07:40 | Outpatient (REF) | payer MEDICARE, SELFPAY ==
--- NOTE | 2022-05-25 07:51 | CA_ITS ---
Transthoracic Echocardiogram Limited Patient (Last, First, Middle): Lupe Thomas Y Gender: Female Date of : 1955 Age: 66 Procedure Date: 05/25/2022 Procedure Type: Transthoracic Echocardiogram Limited Location: OP Height: 160.02 cm Weight: 55. kg BSA: 1.56 m2 Heart Rate: bpm BP: 118 / 60 mmHg Group Leader: Referring MD: Renate Mcgill MD Symptoms: C50.919 adverse effect of chemo Study Quality: Fair ECG Rhythm: Atrial Fibrillation Conclusions: - The left ventricular systolic function is normal. The visually estimated ejection fraction is between 55-60%. Findings Left Ventricle Normal left ventricular cavity size. There is mildly increased left ventricular wall thickness. The left ventricular systolic function is normal. The visually estimated ejection fraction is between 55-60%. There is no evidence of regional wall motion abnormalities. LV peak GLS -13.4 %. Right Ventricle Normal right ventricular cavity size and systolic function. There is a pacemaker wire seen in the right ventricle. Tricuspid Valve There is mild to moderate tricuspid valve regurgitation. Venous The inferior vena cava is normal in size and collapses less than 50% with inspiration. Pericardium/Pleural There is a trivial pericardial effusion. Prior Study Comparison No significant change compared to prior study dated: 12/04/2021. Measurements 2D Linear Measurements IVSd: 1.14 0.6-0.9/0.6-1.0 cm LVIDd: 4.36 3.9-5.3/4.2-5.9 cm LVIDd Index: 2.79 2.4-3.2/2.2-3.1 cm/m2 LVIDs: 2.86 2.0-3.6 cm LVPWd: 1.12 0.7-1.1 cm LA Diam: 4.10 2.7-3.8/3.0-4.0 cm LAIDs Index: 2.63 1.5-2.3 cm/m2 LV Mass: 215.53 67-162/88-224 g LV Mass Index: 138.16 43-95/49-115 g/m2 LVOT Diam: 2.00 3.0+(-)1.3 cm 2D Systolic Function EF 4C: 48.40 >55% EF 2C: 49.40 >55% LVOT LVOT Diam: 2.00 LVOT Area: 3.14 Right Ventricle TAPSE (mm): 28.00 TVS' Jose: 10.00 Tricuspid Valve TR Pk Jose: 2.90 TR Pk Grad: 34.00 RA Press: 3.00 RVSP: 37.00 Updated in Other Vendor System with Status of Final David Ellis MD electronically signed on 05/27/2022 12:05:54 PM with status of Final
== END ==
LOC: HO.CARD 07:40
PROVIDERS: Visit Provider Internal Medicine
DX: C50.919 Malignant neoplasm of unspecified site of unspecified female breast (principal)
CPT/HCPCS: 93308; 93356

== ENCOUNTER → 2022-06-04 08:34 | Outpatient (BNVA) | payer MEDICARE, SELFPAY | PROVIDERS: PCP Internal Medicine; Visit Provider Nurse Practitioner Family | DX: Z45.018 Encounter for adjustment and management of other part of cardiac pacemaker (principal) | CPT/HCPCS: 93280 ==

== ENCOUNTER 2022-06-06 06:51 | Day surgery (SDC) | payer MEDICARE, SELFPAY ==
[2022-05-31 12:18] VITALS: BMI 21.5
--- NOTE | 2022-06-05 09:46 | HO.ANESPROP2 ---
Documented by User: Alessia Raygoza NP 06/13/22 15:17 HPI - Anesthesia Eval Consult details Narrative: 66yo F for Left Breast Lumpectomy/Needle Loc, Axillary Node Dissection Needle Loc Xarelto for afib Pacer - Left chest wall Port a cath - Right chest wall PMFSH Active Problems Active Problems: All Active Problems (Updated 06/01/22 @ 15:06 by Maurilio Carias MD) Depression, major (Acute) Shoulder pain, right (Acute) Type 2 diabetes mellitus with hyperglycemia (Acute) Pruritus (Acute) Rotator cuff tendonitis (Acute) Left breast lump (Acute) Burning with urination (Acute) Breast cancer (Acute) 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) Persistent atrial fibrillation (Acute) Abnormal EKG (Acute) Hepatitis B core antibody positive (Acute) Essential hypertension (Acute) Hypercholesteremia (Acute) Vertigo (Acute) GERD (gastroesophageal reflux disease) (Acute) Pacemaker (Acute ~2008) Past Medical History Medical History Abnormal ultrasound of breast Essential hypertension GERD (gastroesophageal reflux disease) Hypercholesteremia On beta harley at home Pacemaker (~2008) PAF (paroxysmal atrial fibrillation) Port-A-Cath in place PUD (peptic ulcer disease) Screening for breast cancer Vertigo Family History Family History Mother No problems noted. Father No problems noted. 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 Cognitive needs: No Hearing needs: No Vision needs: Yes Meds Allergies Allergy/AdvReac Type Severity Reaction Status Date / Time latex [LATEX] Allergy Intermediate RASH WITH Verified 06/14/22 10:28 CONTACT Home Medications Medication Instructions Recorded Confirmed Last Taken Type dexamethasone 4 mg tablet 4 mg PO BID 01/02/22 06/14/22 Unknown History lancets 33 gauge (Wenceslao Avery #100 ea 01/02/22 06/14/22 Unknown History Plus Lancet) Exam Exam Date and Time: June 05, 2022 0946 Height,Weight and Vital Signs: Height 5 ft 3 in Weight 55.2 kg Pertinent Lab Results Pertinent Lab Results: Laboratory Tests 05/21/22 05/21/22 08:15 08:15 WBC 6.4 Hgb 9.9 L Hct 30.6 L Plt Count 185 D Sodium 141 Potassium 4.3 Chloride 105 Carbon Dioxide 25 BUN 5 L Creatinine 0.60 Narrative Narrative: Cardiac Device Check 06/04/2022 Details: Office interrogation done today. Medtronic dual chamber device. Battery 11.2 years, in AAIR, low rate 60. 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 Device functioning normally. [id number] Cardiac Device Check, pacemaker dual lead Procedure code (CPT) selection complete ECHO 05/2022 Conclusions: - The left ventricular systolic function is normal.? The visually estimated ejection fraction is between 55-60%. ? ? EKG 12/2021 Vent. Rate : 073 BPM ? ? Atrial Rate : 000 BPM ?? P-R Int : 000 ms? QRS Dur : 074 ms ? ? QT Int : 380 ms ? ? ? P-R-T Axes : 000 006 -86 degrees ?? QTc Int : 418 ms ? Atrial fibrillation with occasional ventricular-paced complexes ST & T wave abnormality, consider inferolateral ischemia Abnormal ECG When compared with ECG of 03-MAR-2020 14:59, T wave inversion less evident in Inferior leads Anterolateral leads with occasional Electronic ventricular pacemaker beats Assessment and Plan Assessment Anesthesia Assessment: Chart Reviewed Final Anesthetic Review Family History of Problems with Anesthesia: No History of Problems with Anesthesia: No Documented by User: Shawn Linares MD 06/14/22 21:25 [facility] Past Medical History Medical History Abnormal ultrasound of breast Essential hypertension GERD (gastroesophageal reflux disease) Hypercholesteremia On beta harley at home Pacemaker (~2008) PAF (paroxysmal atrial fibrillation) Port-A-Cath in place PUD (peptic ulcer disease) Screening for breast cancer Vertigo Family History Family History Mother No problems noted. Father No problems noted. 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 Cognitive needs: No Hearing needs: No Vision needs: Yes Meds Allergies Allergy/AdvReac Type Severity Reaction Status Date / Time latex [LATEX] Allergy Intermediate RASH WITH Verified 06/14/22 10:28 CONTACT Home Medications Medication Instructions Recorded Confirmed Last Taken Type dexamethasone 4 mg tablet 4 mg PO BID 01/02/22 06/14/22 Unknown History lancets 33 gauge (OneTouch Delica #100 ea 01/02/22 06/14/22 Unknown History Plus Lancet) Exam Airway Mallampati Class: II TM Dist: <=3cm Neck ROM: Full Heart: OK Lungs: OK Assessment and Plan Assessment Anesthesia Assessment: Anesthesia Plan Discussed Final Anesthetic Review NPO: Yes ASA Class: III Final Preanesthetic Review: No Changes in Pt Med Stat, Meds/Allgs Chart Reviewed, Consent Obtained/Reviewed and Anes Risks/Benef Reviewed Patient Risk: Intermediate Procedure Risk: Low Anesthetic Plan Anesthetic Plan: GA and Agree w/ Assess. and Plan Disposition: Standard PACU
[2022-06-06] VITALS (14 sets, daily range): BP systolic 97–168; BP diastolic 69–83; PULSE 72–87; RESP 14–16; TEMP 36.2–36.4; O2SAT 96–99
--- NOTE | ~2022-06-06 | MM_ITS ---
EXAMINATION: MM MAMMOGRAM GUIDED NEEDLE LOCALIZATION BREAST, LEFT US ULTRASOUND GUIDED NEEDLE LOCALIZATION BREAST, LEFT MM NEEDLE LOCALIZATION SPECIMEN FROM THE LEFT BREAST x 2 SPECIMENS CLINICAL INFORMATION: Left breast cancer (poorly differentiated invasive carcinoma with ductal features and squamous differentiation; metastatic carcinoma left axillary node). Status post neoadjuvant chemotherapy. COMPARISON: Multiple prior breast imaging exams, most recent mammography and ultrasound 05/11/2022. TECHNIQUE NEEDLE LOC: Proper informed consent is obtained from the patient after discussion of the procedure, potential risks and complications, and alternatives including declining the procedure today. Patient was given an opportunity for questions. The patient appeared to understand. The patient consented to the procedure and signed the consent form. BREAST LOCALIZATION, LEFT: GUIDANCE: Digital mammography. APPROACH: Lateral Medial. TARGET: Open coil biopsy clip marker. ANESTHESIA: lidocaine 1%: 7 mL. LOCALIZATION MARKER: [place]dman MammaLok. 7.5 cm length. The skin is prepped and local anesthesia administered. The needle is positioned and position assessed with mammography. The wire is hooked into position. [place] needle protector placed. The patient tolerated the procedure well and had no immediate complication. AXILLA LOCALIZATION, LEFT GUIDANCE: Real time ultrasound guidance. APPROACH: Lateral Medial. TARGET: Butterfly biopsy clip marker. ANESTHESIA: lidocaine 1%: 9 mL. LOCALIZATION MARKER: [place] MammaLok. 7.5 cm length. The skin is prepped and local anesthesia administered. The needle is positioned and position assessed during real-time ultrasound. The wire is hooked into position. [place] needle protector placed. The patient tolerated the procedure well and had no immediate complication. Both procedure localizations discussed with surgeon prior to lumpectomy. TECHNIQUE SPECIMEN RADIOGRAPH, LEFT BREAST: Imaging of the excised specimen is performed using digital mammography in 1 view. FINDINGS SPECIMEN RADIOGRAPH: The specimen shows the distal needle and distal hookwire are delivered intact. The biopsy clip marker is within the specimen along with scattered heterogeneous coarse calcifications and nodular fibroglandular densities. TECHNIQUE SPECIMEN RADIOGRAPH, LEFT AXILLA: Imaging of the excised specimen is performed using digital mammography in 1 view. FINDINGS SPECIMEN RADIOGRAPH: The specimen shows the distal needle and distal hookwire are delivered intact. The biopsy clip marker is identified in the specimen. Results for both specimens were called to Dr. Severo Ferreira in the operating room at the time of imaging. MM/MM needle loc LT IMPRESSION: 1. Status post left breast needle localization with wire hooked into position. 2. Status post left axillary needle localization with wire hooked into position. 3. Post operative specimen radiographs obtained for each lesion.
[2022-06-06 07:55] LABS: Glucose, Whole Blood 118 mg/dL (60-115)
[2022-06-06] MEDS: Lactated Ringers 1,000 ML 100 ML IVCONT (09:19)
--- NOTE | 2022-06-06 09:24 | MHC.SHP ---
Pre-Procedural Eval Section A Date of Service: 06/06/22 The patient is an INPATIENT: No Changes since office visit: Yes Patient answered all questions; No Cold of Flu in the past 2 weeks, No New Medical Problems and No Changes in Medication The History & Physical has been completed within 30 days and I have reviewed it.: Yes Section B Chief Complaint: Malignant neoplasm of unspecified site of left fem Allergies: Allergies Allergy/AdvReac Type Severity Reaction Status Date / Time latex [LATEX] Allergy Intermediate RASH WITH Verified 06/04/22 08:40 CONTACT Plan Diagnosis/Plan: Unchanged I have reviewed the history and physical and performed a pertinent physical examination on my patient. No changes have occurred unless specified. Time Spent With Patient Time: Total time managing care of this patient today ____ minutes.
[2022-06-06] MEDS: Lidocaine HCl 1 % 20 ML VIAL 18 ML SUBCUT (09:29)
[2022-06-06] MEDS: Sodium Bicarbonate 8.4% 50 MEQ/50 ML VIAL SUBCUT (09:30)
--- NOTE | 2022-06-06 11:42 | P.OP_ITS ---
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 She presents now for left breast lumpectomy and left axillary node dissection with needle localization previously biopsied lymph node. Operative findings: Specimen x-ray confirms marking clip and needle within the specimen. Specimen: 1. left breast lumpectomy with needle localization 2. left axillary node with needle localization 3. left axillary node dissection 4. additional margin from superior lateral anterior margin Estimated blood loss: 10 mL Procedure details: Patient was brought to the OR and placed in a supine position. After administering general anesthesia, the left breast was prepped with ChloraPrep draped in a sterile fashion. A surgical time-out was called and the consent confirmed. Preoperative antibiotics were administered and Venodyne boots were in place. Local anesthesia consisting of 0.5% Sensorcaine with epinephrine was then infiltrated around the localizing needle at the 3 o'clock position. Curvilinear incision was made around the entrance of the needle and carried out through subcutaneous tissue. Superior and inferior skin flaps were then created. A core of tissue surrounding the needle was then dissected using a combination of sharp and electrocautery dissection. Every attempt was made to dissect wide of the localizing wire to assure complete removal of the specimen. The specimen extended down to the chest wall. The specimen was then marked with a long suture on the lateral margin, short suture on the superior margin and a loop suture in the deep margin. Specimen was sent to Radiology department for specimen x-ray followed by gross pathology. Attention was then directed to the left axilla. A previously placed localizing needle was found in the lateral posterior axillary compartment. A curvilinear incision was made to include the entrance site of the needle after injection of local anesthesia. Incision was carried out through subcutaneous tissue past clavipectoral fascia into the axillary compartment. The previously marked lymph node was excised and sent as a separate specimen for x-ray. This x-ray confirmed the clip within the lymph node. Dissection was continued by identifying the pectoralis major muscle superiorly and the latissimus Dorsi muscle posteriorly. The muscles were dissected superiorly towards the axillary vein. The axillary vein was identified and a rim of normal lymphatic tissue left in place around the vein a small vein from the axillary vein entering the specimen was identified and ligated using 3-0 Polysorb suture. Solid below this the thoracodorsal vein and artery or identified. Slightly posterior and medial to this was noted to be the thoracodorsal nerve which was preserved. Slightly medial to this the long thoracic nerve was identified and preserved. Dissection of skin and continued below the pectoralis major and pectoralis minor muscle to include level 1 and 2 nodes. This was swept down while maintaining hemostasis throughout the procedure Using electrocautery. The specimen was removed and sent to pathology for further examination. Additional margins of the breast a incision were obtained at the direction of pathology recommended wider excision of the superior, lateral, and anterior margin. This was also sent as a separate specimen. The breast excision site was then irrigated with saline solution and suctioned dry. Wounds were checked for hemostasis. A biopsy cavity was then marked with hemoclips. Deep breast tissue was then reapproximated over the pectoralis muscle using interrupted 3-0 Polysorb sutures. Superficial breast tissue and dermis were then reapproximated using interrupted 3-0 Polysorb sutures. Skin was then closed using a running subcuticular 4-0 Polysorb suture. Steri-Strips 2 x 2 gauze and Tegaderm were then applied. In a similar fashion deep subcutaneous tissue was reapproximated using interrupted 3-0 Polysorb sutures. Dermis was reapproximated using interrupted 3-0 Polysorb sutures. Skin was closed using running subcuticular 4-0 Polysorb suture. Steri-Strips, 4 x 4 gauze and Tegaderm were then applied. The patient tolerated the procedure well. Sponge, instrument, and needle counts reported as correct. The patient was transferred to PACU in stable condition. Breast Axillary Dissection Resection was performed within the boundaries of the axillary vein, chest wall (serratus anterior), and latissimus dorsi: Yes The long thoracic and thoracodorsal nerves were spared during dissection: Yes Attempts were made to spare the intercostobrachial nerves during dissection if possible: Yes If one or more level III nodes is/are removed, then document why: n/a General Surg. - Synoptic Notes Breast Axillary Dissection Resection was performed within the boundaries of the axillary vein, chest wall (serratus anterior), and latissimus dorsi: Yes The long thoracic and thoracodorsal nerves were spared during dissection: Yes Attempts were made to spare the intercostobrachial nerves during dissection if possible: Yes If one or more level III nodes is/are removed, then document why: n/a
[2022-06-06] MEDS: fentaNYL citrate/PF 100 MCG/2 ML VIAL 25 MCG IV (13:32)
[2022-06-06] MEDS: oxyCODONE HCl Immed Release 5 MG TABLET PO (13:35)
== END 2022-06-06 16:03 | disposition home or self-care (01) ==
PROVIDERS: PCP Internal Medicine; Visit Provider Surgery
PROC: (CPT 19301; principal; 2022-06-06 09:50)
PROC: (CPT 19301; 2022-06-06 09:50)
DX: C50.912 Malignant neoplasm of unspecified site of left female breast (principal); I10 Essential (primary) hypertension; E78.00 Pure hypercholesterolemia, unspecified; I48.0 Paroxysmal atrial fibrillation; K21.9 Gastro-esophageal reflux disease without esophagitis; Z79.84 Long term (current) use of oral hypoglycemic drugs; Z79.899 Other long term (current) drug therapy; Z95.0 Presence of cardiac pacemaker; Z91.040 Latex allergy status
CPT/HCPCS: 19301; 19281; 19285; 82947; 88305; 88307; 88329; 88341; 88342; 88360; A4648; J0690; J2250; J3010

== ENCOUNTER → 2022-06-14 10:16 | Outpatient (BNVA) | payer MEDICARE, SELFPAY | PROVIDERS: PCP Internal Medicine; Visit Provider Surgery ==

== ENCOUNTER 2022-06-18 06:44 | Outpatient (REF) | payer MEDICARE, SELFPAY ==
[2022-06-18 08:51] LABS: Hepatitis A Antibody IgG REACTIVE (Nonreactive); ~Hepatitis A Antibody IgG 4.52 S/CO (0.00-0.99)
[2022-06-18 08:52] LABS: ~HepC Num1 0.09 S/CO (0.00-0.79); ~Hepatitis C Antibody Nonreactive (Nonreactive)
[2022-06-21 15:08] LABS: Hepatitis B Viral DNA Qn - cp <1.00 NOT DETECTED Log IU/mL (NOT DETECTED); Hepatitis B Viral DNA Qn-IU/mL <10 NOT DETECTED IU/mL (NOT DETECTED)
[2022-06-23 22:07] LABS: Hepatitis Delta Antibody NEGATIVE
== END 2022-06-18 06:45 | disposition home or self-care (01) ==
LOC: HO.LAB 06:44
PROVIDERS: PCP Internal Medicine; Visit Provider Internal Medicine
DX: D05.12 Intraductal carcinoma in situ of left breast (principal); R76.8 Other specified abnormal immunological findings in serum; Z48.817 Encounter for surgical aftercare following surgery on the skin and subcutaneous tissue; Z98.890 Other specified postprocedural states; Z79.899 Other long term (current) drug therapy; Z79.891 Long term (current) use of opiate analgesic
CPT/HCPCS: 36415; 86692; 86708; 86803; 87517

== ENCOUNTER → 2022-06-21 09:13 | Outpatient (BNVA) | payer MEDICARE, SELFPAY | PROVIDERS: PCP Internal Medicine; Visit Provider Surgery ==

== ENCOUNTER → 2022-06-29 09:32 | Outpatient (BNVA) | payer MEDICARE, SELFPAY | PROVIDERS: PCP Internal Medicine; Visit Provider Surgery ==

== ENCOUNTER 2022-07-04 06:55 | Inpatient (IN) | payer MEDICARE, SELFPAY ==
[2022-06-26 10:47] VITALS: BMI 22.0
--- NOTE | 2022-07-03 09:58 | P.CONAN_ITS ---
Documented by User: Alessia Raygoza NP 07/03/22 09:59 HPI - Anesthesia Eval Consult details Narrative: 66yo F for Left Left Mastectomy Simple s/p Breast Lumpectomy/Needle Loc, Axillary Node Dissection Needle Loc 05/2022 with GA-LMA 3 Xarelto for afib Pacer - Left chest wall Port a cath - Right chest wall PMFSH Active Problems Active Problems: All Active Problems (Updated 06/26/22 @ 08:53 by Barbara Potts RN) Shoulder pain, right (Acute) Type 2 diabetes mellitus with hyperglycemia (Acute) Pruritus (Acute) Rotator cuff tendonitis (Acute) Left breast lump (Acute) Burning with urination (Acute) Breast cancer (Acute) 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) Persistent atrial fibrillation (Acute) Abnormal EKG (Acute) Hepatitis B core antibody positive (Acute) Depression, major (Acute) S/P lumpectomy, left breast (Acute) Ductal carcinoma in situ (DCIS) of left breast (Acute) Essential hypertension (Acute) Hypercholesteremia (Acute) Vertigo (Acute) GERD (gastroesophageal reflux disease) (Acute) Pacemaker (Acute ~2008) Past Medical History Medical History (Updated 07/03/22 @ 11:45 by Renate Mcgill MD) Abnormal ultrasound of breast Essential hypertension GERD (gastroesophageal reflux disease) Hypercholesteremia On beta harley at home Pacemaker (~2008) PAF (paroxysmal atrial fibrillation) Port-A-Cath in place PUD (peptic ulcer disease) Screening for breast cancer Vertigo Family History Family History Mother No problems noted. Father No problems noted. Family history of problems with anesthesia: No Surgical History Surgical History History of appendectomy History of cholecystectomy History of lumpectomy of left breast History of permanent cardiac pacemaker placement History of tubal ligation History of Problems with Anesthesia: No Social History Social History Household Members: Spouse Housing: House Are you a primary director day care center to a significant other at home: No Do you presently have visiting nurse or other home services: No Alcohol intake: never Patient Tobacco Use Status: Never used Tobacco e-Cigarette/Vaping Use: Never Used Second Hand Smoke Exposure: No Use of substances other than those prescribed or required for medical reasons: No Have you been hit, kicked, punched, or otherwise hurt by someone within the past year? 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 Cognitive needs: No Hearing needs: No Vision needs: Yes Meds Allergies Allergy/AdvReac Type Severity Reaction Status Date / Time latex [LATEX] Allergy Intermediate RASH WITH Verified 07/03/22 11:33 CONTACT Home Medications Medication Instructions Recorded Confirmed Last Taken Type lancets 33 gauge ([employer]ica #100 ea 01/02/22 07/03/22 Unknown History Plus Lancet) metoprolol tartrate 50 mg tablet 50 mg PO BID 07/04/22 07/04/22 Unknown History omeprazole 40 mg capsule,delayed 40 mg PO DAILY 07/04/22 07/04/22 Unknown History release rivaroxaban 20 mg tablet (Xarelto) 20 mg PO DAILY 07/04/22 07/04/22 Unknown H istory tenofovir alafenamide 25 mg tablet 25 mg PO DAILY 07/04/22 07/04/22 Unknown History (Vemlidy) Exam Exam Date and Time: July 03, 2022 0958 Height,Weight and Vital Signs: Height 5 ft 3 in Weight 56.427 kg Pertinent Lab Results Pertinent Lab Results: Laboratory Tests 05/21/22 05/21/22 08:15 08:15 WBC 6.4 Hgb 9.9 L Hct 30.6 L Plt Count 185 D Sodium 141 Potassium 4.3 Chloride 105 Carbon Dioxide 25 BUN 5 L Creatinine 0.60 Narrative Narrative: Cardiac Device Check 06/04/2022 Details: Office interrogation done today. Medtronic dual chamber device. Battery 11.2 years, in AAIR, low rate 60. RV threshold 0.75V at 0.4ms, episodes AF RVR, high V rates, RIP TAILER 71.3% of time, activity decreased in recent months. Device functioning normally. [id number] Cardiac Device Check, pacemaker dual lead Procedure code (CPT) selection complete ECHO 05/2022 Conclusions: - The left ventricular systolic function is normal.? The visually estimated ejection fraction is between 55-60%. ? ? EKG 12/2021 Vent. Rate : 073 BPM ? ? Atrial Rate : 000 BPM ?? P-R Int : 000 ms? QRS Dur : 074 ms ? ? QT Int : 380 ms ? ? ? P-R-T Axes : 000 006 -86 degrees ?? QTc Int : 418 ms ? Atrial fibrillation with occasional ventricular-paced complexes ST & T wave abnormality, consider inferolateral ischemia Abnormal ECG When compared with ECG of 03-MAR-2020 14:59, T wave inversion less evident in Inferior leads Anterolateral leads with occasional Electronic ventricular pacemaker beats Assessment and Plan Assessment Anesthesia Assessment: Chart Reviewed Final Anesthetic Review Family History of Problems with Anesthesia: No History of Problems with Anesthesia: No Documented by User: Estrella John MD 07/04/22 09:50 [facility] Past Medical History Medical History (Updated 07/03/22 @ 11:45 by Renate Mcgill MD) Abnormal ultrasound of breast Essential hypertension GERD (gastroesophageal reflux disease) Hypercholesteremia On beta harley at home Pacemaker (~2008) PAF (paroxysmal atrial fibrillation) Port-A-Cath in place PUD (peptic ulcer disease) Screening for breast cancer Vertigo Family History Family History Mother No problems noted. Father No problems noted. Surgical History Surgical History History of appendectomy History of cholecystectomy History of lumpectomy of left breast History of permanent cardiac pacemaker placement History of tubal ligation Social History Social History Household Members: Spouse Housing: House Are you a primary director day care center to a significant other at home: No Do you presently have visiting nurse or other home services: No Alcohol intake: never Patient Tobacco Use Status: Never used Tobacco e-Cigarette/Vaping Use: Never Used Second Hand Smoke Exposure: No Use of substances other than those prescribed or required for medical reasons: No Have you been hit, kicked, punched, or otherwise hurt by someone within the past year? 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 Cognitive needs: No Hearing needs: No Vision needs: Yes Meds Allergies Allergy/AdvReac Type Severity Reaction Status Date / Time latex [LATEX] Allergy Intermediate RASH WITH Verified 07/03/22 11:33 CONTACT Home Medications Medication Instructions Recorded Confirmed Last Taken Type lancets 33 gauge ([employer] #100 ea 01/02/22 07/03/22 Unknown History Plus Lancet) metoprolol tartrate 50 mg tablet 50 mg PO BID 07/04/22 07/04/22 Unknown History omeprazole 40 mg capsule,delayed 40 mg PO DAILY 07/04/22 07/04/22 Unknown History release rivaroxaban 20 mg tablet (Xarelto) 20 mg PO DAILY 07/04/22 07/04/22 Unknown History tenofovir alafenamide 25 mg tablet 25 mg PO DAILY 07/04/22 07/04/22 Unknown History (Vemlidy) Exam Airway Mallampati Class: I TM Dist: >3cm Neck ROM: Full Heart: rr Lungs: cta Assessment and Plan Assessment Anesthesia Assessment: Anesthesia Plan Discussed and Chart Reviewed Final Anesthetic Review NPO: Yes ASA Class: III Final Preanesthetic Review: No Changes in Pt Med Stat, Meds/Allgs Chart Reviewed, Consent Obtained/Reviewed and Anes Risks/Benef Reviewed Patient Risk: Intermediate Procedure Risk: Low Anesthetic Plan Anesthetic Plan: GA Disposition: Standard PACU
[2022-07-04] VITALS (19 sets, daily range): BP systolic 113–151; BP diastolic 54–72; PULSE 64–100; RESP 12–20; TEMP 36.1–37.2; O2SAT 88–99; BMI 22.0
--- NOTE | 2022-07-04 07:22 | MHC.SHP ---
Pre-Procedural Eval Section A Date of Service: 07/04/22 The patient is an INPATIENT: No Changes since office visit: Yes Patient answered all questions; No Cold of Flu in the past 2 weeks, No New Medical Problems and No Changes in Medication The History & Physical has been completed within 30 days and I have reviewed it.: Yes Section B Chief Complaint: Invasive ductal carcinoma left breast Allergies: Allergies Allergy/AdvReac Type Severity Reaction Status Date / Time latex [LATEX] Allergy Intermediate RASH WITH Verified 07/03/22 11:33 CONTACT Plan Diagnosis/Plan: Unchanged I have reviewed the history and physical and performed a pertinent physical examination on my patient. No changes have occurred unless specified. Time Spent With Patient Time: Total time managing care of this patient today ____ minutes.
--- NOTE | 2022-07-04 07:24 | PHA.MEDREC ---
Pharmacy Consult ? Medication Reconciliation Pharmacy has completed the medication reconciliation.
[2022-07-04 07:33] LABS: Glucose, Whole Blood 110 mg/dL (60-115)
[2022-07-04] MEDS: ceFAZolin Sodium/Dextrose,Iso 2 GM/50 ML PIGGYBACK IV (09:15)
--- NOTE | 2022-07-04 10:55 | W.PM.OPN ---
Operative Note Operative Note Date of Service: 07/04/22 Narrative: Preoperative diagnosis: invasive ductal carcinoma with DCIS multiple disease Postoperative diagnosis: same Procedure: simple mastectomy Surgeon: Severo Ferreira MD Conference Interpreter: Iram Escalante PA-C Anesthesia: general endotracheal Indications for procedure: 66-year-old female patient with a history of left breast invasive ductal carcinoma, status post neoadjuvant chemotherapy, s/p lumpectomy and sentinel node biopsy with axillary sampling found to have multiple positive margins for DCIS presenting now for simple mastectomy to assure negative margins. Operative findings: Biopsy cavity in the 3 o'clock position left breast and axillary node incision in the lower axillary compartment. Pacemaker noted in the upper portion of the left breast left intact. Seroma in the left axilla was evacuated and drain placed for both the breast and axilla. Specimen: Left mastectomy, simple long suture on axillary ( lateral ) and short suture placed on the superior margin Estimated blood loss: 20 mL Complications: none Procedure details: patient was brought to the OR placed in a supine position. After administering general anesthesia patient's left breast was prepped with ChloraPrep and draped in a sterile fashion. A surgical time-out was called the consent confirmed. Patient received preoperative antibiotics and Venodyne boots were in place. Local anesthesia consisting of 0.5% Sensorcaine was infiltrated around the left breast. Elliptical incision was then created to include the nipple and the prior lumpectomy incision. This was carried out through subcutaneous tissue. Superior skin flap was then created using electrocautery extending up towards the clavicle. Around the pacemaker sharp dissection was used the Metzenbaum scissors. Dissection was then continued down to the chest wall again using Metzenbaum scissors. Hemostasis was assured using electrocautery. Attention was then directed to the inferior flap where dissection was continued over the breast capsule inferiorly towards the costal margin. This was dissected down to the chest wall as well using electrocautery. Electrocautery was then used to dissect the breast tissue off the chest wall starting from superior medial to inferior lateral. Near the pacemaker sharp dissection with Metzenbaum scissors was used to dissect off the chest wall. Hemostasis was also assured using free ties of Polysorb suture and suture ligature of 2-0 Polysorb suture. Dissection was continued towards the axilla which was previously dissected. A seroma was identified and evacuated. Breast tissue was then irrigated with saline solution and suctioned dry. Wounds were again checked for hemostasis. Two large Omar-Copeland drains were left in place 1 for the inferior breast flap and a 2nd for the axilla. These were connected to bulb suction and secured to the skin using a 3-0 nylon suture. Dermis was then reapproximated using interrupted 3-0 Polysorb sutures. Skin was closed using a running subcuticular 4-0 Polysorb suture. Steri-Strips, gauze and paper tape were then applied. The patient tolerated Procedure well and was transferred to PACU in stable condition.
[2022-07-04] MEDS: fentaNYL citrate/PF 100 MCG/2 ML VIAL 25 MCG IVPUSH ×4 (11:29→11:44)
[2022-07-04] MEDS: Acetaminophen 1,000 MG/100 ML PIGGYBACK 400 MG IV ×2 (11:30→18:18)
[2022-07-04] MEDS: HYDROmorphone HCl 0.5 MG/0.5 ML SYRINGE 0.25 MG IVPUSH ×2 (11:56→13:53)
--- NOTE | 2022-07-04 13:36 | HO.PM.IMCN ---
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 Hospitalist consult for medical management. Patient seen resting comfortably in bed and evaluated bedside post surgery. Pt is somnolent but arousable and answers questions appropriately. Patient complains left-sided chest pain at site of surgical incisions. Has some numbness and tingling in her extremities. Pt also complains of intermittent catching of her breath which she says she experienced after her last surgery. Pt otherwise has no acute medical complaints. No chest pressure, palpitations. No fever, chills, N/V, abdominal pain.?Labs from 07/03/2022 reviewed, unremarkable. Review of Systems Review of Systems: Left-sided chest pain at sites of surgical incision Intermittent catching of breath Numbness and tingling in extremities Yes all other systems are reviewed and are negative [facility], LAT[facility] Medical History Abnormal ultrasound of breast Essential hypertension GERD (gastroesophageal reflux disease) Hypercholesteremia On beta harley at home Pacemaker (~2008) PAF (paroxysmal atrial fibrillation) Port-A-Cath in place PUD (peptic ulcer disease) Screening for breast cancer Vertigo Family History Mother No problems noted. Father No problems noted. Surgical History History of appendectomy History of cholecystectomy History of lumpectomy of left breast History of permanent cardiac pacemaker placement History of tubal ligation Social History Household Members: Spouse Housing: House Are you a primary resident care coordinator to a significant other at home: No Do you presently have visiting nurse or other home services: No Alcohol intake: never Patient Tobacco Use Status: Never used Tobacco e-Cigarette/Vaping Use: Never Used Second Hand Smoke Exposure: No Use of substances other than those prescribed or required for medical reasons: No Have you been hit, kicked, punched, or otherwise hurt by someone within the past year? 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 Cognitive needs: No Hearing needs: No Vision needs: Yes Meds Allergies Allergy/AdvReac Type Severity Reaction Status Date / Time latex [LATEX] Allergy Intermediate RASH WITH Verified 07/03/22 11:33 CONTACT Active Medications: Current Medications Diltiazem HCl (Diltiazem Hcl Cd 120 Mg Cap.Er.Deg) 120 mg PO DAILY [facility]; Protocol Gabapentin (Gabapentin 300 Mg Capsule) 300 mg PO BID [facility] Heparin Sodium (Porcine) (Heparin Sodium,Porcine 5,000 Unit/Ml Vial) 5,000 unit SUBCUT Q12H [facility] Hydromorphone HCl (Hydromorphone Hcl 0.5 Mg/0.5 Ml Syringe) 0.25 mg IVPUSH Q5M PRN; Protocol PRN Reason: Pain, Severe (Pain Scale 7-10) Last Admin: 07/04/22 11:56 Dose: 0.25 mg Hydromorphone HCl (Hydromorphone Hcl 0.5 Mg/0.5 Ml Syringe) 0.25 mg IVPUSH Q3H PRN; Protocol PRN Reason: Pain, Severe (Pain Scale 7-10) Lactated Ringer's (Lr) 1,000 mls @ 100 mls/hr IVCONT .Q10H [facility] Acetaminophen (Ofirmev) 1,000 mg in 100 mls @ 400 mls/hr IV Q6H [facility] Stop: 07/05/22 07:05 Lisinopril (Lisinopril 10 Mg Tablet) 10 mg PO DAILY [facility]; Protocol Metoprolol Tartrate (Metoprolol Tartrate 50 Mg Tablet) 50 mg PO BID [facility]; Protocol Non-Formulary Medication (Tenofovir Alafenamide [Vemlidy]) 25 mg PO DAILY [facility] Omeprazole (Omeprazole 40 Mg Capsule.Dr) 40 mg PO DAILY [facility] Ondansetron HCl (Ondansetron Hcl 4 Mg/2 Ml Vial) 4 mg IVPUSH QID PRN PRN Reason: Nausea Oxycodone HCl (Oxycodone Hcl Immed Release 5 Mg Tablet) 5 mg PO Q6H PRN PRN Reason: Pain, Moderate (Pain Scale 4-6 Pravastatin Sodium (Pravastatin Sodium 40 Mg Tablet) 40 mg PO DAILY [facility] Sodium Chloride (0.9 % Sodium Chloride Flush 3 Ml Syringe) 3 ml IVFLUSH QSHIFT [facility] Zolpidem Tartrate (Zolpidem Tartrate 5 Mg Tablet) 5 mg PO BEDTIME PRN PRN Reason: Insomnia Home Medications Medication Instructions Recorded Confirmed Last Taken Type lancets 33 gauge (Xangaica #100 ea 01/02/22 07/03/22 Unknown History Plus Lancet) metoprolol tartrate 50 mg tablet 50 mg PO BID 07/04/22 07/04/22 Unknown History omeprazole 40 mg capsule,delayed 40 mg PO DAILY 07/04/22 07/04/22 Unknown History release rivaroxaban 20 mg tablet (Xarelto) 20 mg PO DAILY 07/04/22 07/04/22 Unknown History tenofovir alafenamide 25 mg tablet 25 mg PO DAILY 07/04/22 07/04/22 Unknown History (Vemlidy) Physical Exam Vital Signs and Narrative: Vital Signs: Last Vital Signs Temp 98.1 F 07/04/22 12:01 Pulse 83 07/04/22 12:31 Resp 14 07/04/22 12:31 BP 129/66 07/04/22 12:31 Pulse Ox 99 07/04/22 12:31 O2 Del Method Nasal Cannula 07/04/22 12:31 O2 Flow Rate 2 07/04/22 12:31 BMI result Body Mass Index 22.0 General: AOx3, no acute distress Resp: CTA bilaterally CVS: S1, S2, irregularly irregular rhytm GI: +BS, NT, no distention Skin: No rash Neuro: Cranial nerves II-XII grossly intact bilaterally. 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 Hospitalist consult for medical management. Mastectomy Management as per general surgery Intermittent catching of breath Pt not exhibiting labored or labored breathing, no use of accessory muscles Most likely secondary to intubation for surgery Continue supplemental O2, titrate to O2>90, wean as tolerated Incentive spirometry Numbness and tingling in extremities bilaterally Most likely secondary to anesthesia, patient moves all extremities spontaneously, capillary refill WNL Continue to monitor AFib on Xeralto Hold Xeralto for now, resume when cleared by general surgery Pneumatic boots for DVT prophylaxis Continue metoprolol, diltiazem [id number] diabetes Patient has been diagnosed by PCP with diabetes Currently diet-controlled, not on any diabetes medication SSI Diabetic diet Check A1C tomorrow HLD Continue statin Chronic hepatitis-B Continue tenofovir GERD Continue PPI Thank you for allowing us to participate in the care of this patient. Given the pt's comorbidities will follow for now and re-evaluate tomorrow. Please let us know if there are any acute complaints or questions. Time Spent With Patient Time: Total time managing care of this patient today ____ minutes.
[2022-07-04] MEDS: Lactated Ringers 1,000 ML 100 ML IVCONT ×2 (13:47→23:44)
--- NOTE | 2022-07-04 15:49 | MHC.CLN ---
NUTRITION CHANGED DIET TO DIABETIC 1800 KCALS. HAS DX DM, DOES NOT TAKE DM MEDS. ADDED ENSURE BID PER DISCUSSION WITH PATIENT. PROVIDES 700 KCALS, 40 G PROTEIN. FOLLOW FOR INTAKE.
[2022-07-04] MEDS: ondansetron HCL 4 MG/2 ML VIAL IVPUSH (17:01)
[2022-07-04] MEDS: oxyCODONE HCl Immed Release 5 MG TABLET PO (17:29)
[2022-07-04] MEDS: Gabapentin 300 MG CAPSULE PO (21:32)
[2022-07-04] MEDS: Metoprolol Tartrate 50 MG TABLET PO (21:32)
[2022-07-05] MEDS: Acetaminophen 1,000 MG/100 ML PIGGYBACK 400 MG IV ×2 (00:30→06:14)
[2022-07-05 03:51] VITALS: BP 121/60; PULSE 78; RESP 18; TEMP 36.6; O2SAT 96
[2022-07-05 06:10] LABS: MANUAL DIFF FLAG NO
[2022-07-05 06:42] LABS: Basophils Percent Auto 0.3 % (0-2); Eosinophils Percent Auto 0.2 % (0-4); Hematocrit 27.4 % (37.0-47.0); Imm Gran Abs Auto 0.01 X10*3/uL (0.00-0.03); Imm Gran Pct Auto 0.2 % (0.0-0.4); Lymphocytes Absolute Auto 1.6 X10*3/uL (1.2-4.9); Mean Corpuscular HGB Conc 32.8 g/dl (31.0-35.0); Mean Corpuscular Hemoglobin 30.2 pg (27.0-33.0); Mean Corpuscular Volume 91.9 fL (80.0-98.0); Mean Platelet Volume 9.8 fL (9.4-12.3); Monocytes Absolute Auto 0.6 X10*3/uL (0.1-1.2); Monocytes Percent Auto 9.2 % (2-11); Neutrophils Absolute Auto 4.3 x10*3/uL (2.0-8.3); Neutrophils Percent Auto 65.1 % (45-73); Platelet Count 155 X10*3/uL (160-400); Red Blood Count 2.98 X10*6/uL (4.20-5.50); Red Cell Distribution Width 13.2 % (11.0-16.0); White Blood Count 6.5 X10*3/uL (4.8-10.8)
[2022-07-05 06:58] LABS: Anion Gap 14 (12-20); Blood Urea Nitrogen 11 mg/dL (9-16); Calcium 8.5 mg/dL (8.4-10.2); Carbon Dioxide 26 mmol/L (22-29); Chloride 105 mmol/L (96-108); Creatinine Clr Calc Pharmacy 58.6; Estimated Glomerular Filt Rate > 60; Glucose Random 103 mg/dL (60-115); Potassium 4.5 mmol/L (3.3-5.1); Sodium 140 mmol/L (135-145)
[2022-07-05 07:33] LABS: Estimated Average Glucose 105 mg/dL; Hemoglobin A1c % 5.3 %
--- NOTE | 2022-07-05 07:43 | P.PNGS_ITS ---
Subjective Subjective Date of Service: 07/05/22 Interval history: Pod 1 following left simple mastectomy. Patient reports some nausea and vomiting during the night with incisional pain. Had difficulty sleeping. Not very hungry this morning. Physical Exam Vital Signs: Vital Signs: Last Vital Signs Temp 97.9 F 07/05/22 03:51 Pulse 78 07/05/22 03:51 Resp 18 07/05/22 03:51 BP 121/60 07/05/22 03:51 Pulse Ox 96 07/05/22 03:51 O2 Del Method Room Air 07/05/22 03:51 O2 Flow Rate 2 07/04/22 15:57 BMI result Body Mass Index 22.0 Const: General: no acute distress and alert Nutritional Appearance: well nourished Orientation/consciousness: patient oriented x3 Limitations: no limitations Chest: Other: Dressings clean and intact, no erythema or hematoma appreciated. FELICIANO x2 intact. Resp: Effort & Inspection: normal respiratory effort, no audible wheezes, no cough and no respiratory distress GI: Other: Soft, nondistended Skin: Other: Warm, dry, no rash Neuro: General: patient oriented x3 Extrem: Other: No edema in left upper extremity Objective Data Active Medications Diltiazem HCl (Diltiazem Hcl Cd 120 Mg Cap.Er.Deg) 120 mg PO DAILY [facility]; Protocol Gabapentin (Gabapentin 300 Mg Capsule) 300 mg PO BID [facility] Last Admin: 07/04/22 21:32 Dose: 300 mg Documented By: MAXIMILIAN Heparin Sodium (Porcine) (Heparin Sodium,Porcine 5,000 Unit/Ml Vial) 5,000 unit SUBCUT Q12H [facility] Hydromorphone HCl (Hydromorphone Hcl 0.5 Mg/0.5 Ml Syringe) 0.25 mg IVPUSH Q5M PRN; Protocol PRN Reason: Pain, Severe (Pain Scale 7-10) Last Admin: 07/04/22 11:56 Dose: 0.25 mg Documented By: RONNI Hydromorphone HCl (Hydromorphone Hcl 0.5 Mg/0.5 Ml Syringe) 0.25 mg IVPUSH Q3H PRN; Protocol PRN Reason: Pain, Severe (Pain Scale 7-10) Last Admin: 07/04/22 13:53 Dose: 0.25 mg Documented By: ROM Lactated Ringer's (Lr) 1,000 mls @ 100 mls/hr IVCONT .Q10H [facility] Last Admin: 07/04/22 23:44 Dose: 100 mls/hr Documented By: MAXIMILIAN Lisinopril (Lisinopril 10 Mg Tablet) 10 mg PO DAILY [facility]; Protocol Metoprolol Tartrate (Metoprolol Tartrate 50 Mg Tablet) 50 mg PO BID [facility]; Protocol Last Admin: 07/04/22 21:32 Dose: 50 mg Documented By: MAXIMILIAN Non-Formulary Medication (Tenofovir Alafenamide [Vemlidy]) 25 mg PO DAILY [facility] Omeprazole (Omeprazole 40 Mg Capsule.Dr) 40 mg PO DAILY [facility] Ondansetron HCl (Ondansetron Hcl 4 Mg/2 Ml Vial) 4 mg IVPUSH QID PRN PRN Reason: Nausea Last Admin: 07/04/22 17:01 Dose: 4 mg Documented By: STACY-SOFFA Oxycodone HCl (Oxycodone Hcl Immed Release 5 Mg Tablet) 5 mg PO Q6H PRN PRN Reason: Pain, Moderate (Pain Scale 4-6 Last Admin: 07/04/22 17:29 Dose: 5 mg Documented By: KATIE Pravastatin Sodium (Pravastatin Sodium 40 Mg Tablet) 40 mg PO DAILY [facility] Sodium Chloride (0.9 % Sodium Chloride Flush 3 Ml Syringe) 3 ml IVFLUSH QSHIFT [facility] Last Admin: 07/04/22 22:17 Dose: Not Given Documented By: MAXIMILIAN Non-Admin Reason: IV Running Zolpidem Tartrate (Zolpidem Tartrate 5 Mg Tablet) 5 mg PO BEDTIME PRN PRN Reason: Insomnia Labs 07/05/22 05:39 07/05/22 05:39 Labs: Laboratory Results - last 24 hr 07/04/22 07/05/22 07/05/22 07:10 05:39 05:39 MCV 91.9 MCH 30.2 MCHC 32.8 RDW 13.2 Plt Count 155 L MPV 9.8 Immature Gran % (Auto) 0.2 Neut % (Auto) 65.1 Lymph % (Auto) 25.0 [place] % (Auto) 9.2 Eos % (Auto) 0.2 Baso % (Auto) 0.3 Lymph # (Auto) 1.6 [place] # (Auto) 0.6 Eos # (Auto) 0.0 Baso # (Auto) 0.0 Abs Immat Gran (auto) 0.01 Absolute Neuts (auto) 4.3 Absolute Nucleated RBC 0.000 Nucleated RBC % (auto) 0.0 Anion Gap 14 Estim Creat Clear Calc 58.6 Estimated GFR > 60 Random Glucose 103 Estimat Average Glucose Hemoglobin A1c % Calcium 8.5 D Blood Type O Positive Antibody Screen NEGATIVE 07/05/22 05:39 MCV MCH MCHC RDW Plt Count MPV Immature Gran % (Auto) Neut % (Auto) Lymph % (Auto) [place] % (Auto) Eos % (Auto) Baso % (Auto) Lymph # (Auto) [place] # (Auto) Eos # (Auto) Baso # (Auto) Abs Immat Gran (auto) Absolute Neuts (auto) Absolute Nucleated RBC Nucleated RBC % (auto) Anion Gap Estim Creat Clear Calc Estimated GFR Random Glucose Estimat Average Glucose 105 Hemoglobin A1c % 5.3 Calcium Blood Type Antibody Screen Procedures Date of Service Date of Service: 07/05/22 Progress Note: A&P Assessment and plan (1) Invasive ductal carcinoma of left breast: Status: Chronic Plan Pod 1 following left simple mastectomy for left invasive ductal carcinoma with DCIS, positive margins after lumpectomy. She remains stable postop but reports incisional pain, nausea, vomiting, and insomnia. Wounds are clean without evidence of a hematoma or seroma. FELICIANO 1/2 with 38/58 mL output. Encourage patient to get out of bed and ambulate today. Will continue to monitor FELICIANO output and p.o. intake. Patient is not ready for discharge at this time. Possible discharge in a.m. if better pain control. Time Spent With Patient Time: Total time managing care of this patient today ____ minutes. Quality Stroke Does the patient have a stroke diagnosis?: No VTE Prior VTE?: No VTE Risk Level:: Surgical - moderate VTE Device Contraindication: N/A - Device Ordered VTE Drug Contraindication: Treatment Not Indicated
[2022-07-05 07:47] VITALS: BP 123/56; PULSE 72; RESP 18; TEMP 36.8; O2SAT 97
--- NOTE | 2022-07-05 08:20 | HO.POSTANES ---
Post Anesthesia Evaluation Post Anesthesia Evaluation Vital Signs: Vital Signs Temp Pulse Resp BP Pulse Ox O2 Del Method 07/05/22 07:47 98.3 F 72 18 123/56 L 97 Room Air 07/05/22 03:51 97.9 F 78 18 121/60 96 Room Air Anesthesia: General LMA Mental Status: Awake Pain Control: Satisfactory (C/o some incisional pain. Received some IV acetaminophen) Nausea/Vomiting: Mild (Some N&V yesterday after arrived on floor. Resolved) Hydration: Adequate Anesthesia-Related Issues: No Anes. Related Issues
[2022-07-05] MEDS: HYDROmorphone HCl 0.5 MG/0.5 ML SYRINGE 0.25 MG IVPUSH ×3 (09:35→21:25)
[2022-07-05] MEDS: 0.9 % Sodium Chloride Flush 3 ML SYRINGE IVFLUSH ×3 (09:40→20:27)
--- NOTE | 2022-07-05 09:51 | P.PNIM_ITS ---
Subjective Subjective Date of Service: 07/05/22 Interval History: s/p mastectomy Review of Systems denies any new c/o . no chest pain or sob or numbness/tingling Physical Exam Vital Signs: Vital Signs: Last Vital Signs Temp 98.3 F 07/05/22 07:47 Pulse 72 07/05/22 07:47 Resp 18 07/05/22 07:47 BP 123/56 L 07/05/22 07:47 Pulse Ox 97 07/05/22 07:47 O2 Del Method Room Air 07/05/22 07:47 O2 Flow Rate 2 07/04/22 15:57 BMI result Body Mass Index 22.0 Appearance: Alert.? Oriented X3.? not in distress.? cvs: rrr, [id number]. chest wrappped dressing(s/p mastectomy) res: air entry fair , no rales or wheezin abd: no rebound or guarding ,nt, bs present. ext pulses present , no cyanosis . neuro: axo3 , nonfocal. Objective Data Active Medications Diltiazem HCl (Diltiazem Hcl Cd 120 Mg Cap.Er.Deg) 120 mg PO DAILY [facility]; Protocol Gabapentin (Gabapentin 300 Mg Capsule) 300 mg PO BID [facility] Last Admin: 07/04/22 21:32 Dose: 300 mg Documented By: MAXIMILIAN Heparin Sodium (Porcine) (Heparin Sodium,Porcine 5,000 Unit/Ml Vial) 5,000 unit SUBCUT Q12H [facility] Hydromorphone HCl (Hydromorphone Hcl 0.5 Mg/0.5 Ml Syringe) 0.25 mg IVPUSH Q5M PRN; Protocol PRN Reason: Pain, Severe (Pain Scale 7-10) Last Admin: 07/04/22 11:56 Dose: 0.25 mg Documented By: RONNI Hydromorphone HCl (Hydromorphone Hcl 0.5 Mg/0.5 Ml Syringe) 0.25 mg IVPUSH Q3H PRN; Protocol PRN Reason: Pain, Severe (Pain Scale 7-10) Last Admin: 07/05/22 09:35 Dose: 0.25 mg Documented By: DEB Lisinopril (Lisinopril 10 Mg Tablet) 10 mg PO DAILY [facility]; Protocol Metoprolol Tartrate (Metoprolol Tartrate 50 Mg Tablet) 50 mg PO BID [facility]; Protocol Last Admin: 07/04/22 21:32 Dose: 50 mg Documented By: MAXIMILIAN Non-Formulary Medication (Tenofovir Alafenamide [Vemlidy]) 25 mg PO DAILY [facility] Omeprazole (Omeprazole 40 Mg Capsule.Dr) 40 mg PO DAILY [facility] Ondansetron HCl (Ondansetron Hcl 4 Mg/2 Ml Vial) 4 mg IVPUSH QID PRN PRN Reason: Nausea Last Admin: 07/04/22 17:01 Dose: 4 mg Documented By: KILO Oxycodone HCl (Oxycodone Hcl Immed Release 5 Mg Tablet) 5 mg PO Q6H PRN PRN Reason: Pain, Moderate (Pain Scale 4-6 Last Admin: 07/04/22 17:29 Dose: 5 mg Documented By: KATIE Pravastatin Sodium (Pravastatin Sodium 40 Mg Tablet) 40 mg PO DAILY [facility] Sodium Chloride (0.9 % Sodium Chloride Flush 3 Ml Syringe) 3 ml IVFLUSH QSHIFT [facility] Last Admin: 07/05/22 09:40 Dose: 3 ml Documented By: DEB Zolpidem Tartrate (Zolpidem Tartrate 5 Mg Tablet) 5 mg PO BEDTIME PRN PRN Reason: Insomnia Labs 07/05/22 05:39 07/05/22 05:39 Labs: Laboratory Results - last 24 hr 07/05/22 07/05/22 07/05/22 05:39 05:39 05:39 MCV 91.9 MCH 30.2 MCHC 32.8 RDW 13.2 Plt Count 155 L MPV 9.8 Immature Gran % (Auto) 0.2 Neut % (Auto) 65.1 Lymph % (Auto) 25.0 [place] % (Auto) 9.2 Eos % (Auto) 0.2 Baso % (Auto) 0.3 Lymph # (Auto) 1.6 [place] # (Auto) 0.6 Eos # (Auto) 0.0 Baso # (Auto) 0.0 Abs Immat Gran (auto) 0.01 Absolute Neuts (auto) 4.3 Absolute Nucleated RBC 0.000 Nucleated RBC % (auto) 0.0 Anion Gap 14 Estim Creat Clear Calc 58.6 Estimated GFR > 60 Random Glucose 103 Estimat Average Glucose 105 Hemoglobin A1c % 5.3 Calcium 8.5 D Assessment and Plan (1) Essential hypertension: Status: Acute (2) Hyperglycemia: Status: Acute Plan 66-year-old female with a PMH significant for 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 Hospitalist consult for medical management. Mastectomy Management as per general surgery sob resolved ,no new c/o , sats 97% RA Incentive spirometry Numbness and tingling in extremities bilaterally Most likely secondary to anesthesia,resolved. AFib on Xeralto Hold Xeralto for now, resume when cleared by general surgery Pneumatic boots for DVT prophylaxis Continue metoprolol, diltiazem mild hyperglycemia Check A1C 5.3 less likely dm. HLD Continue statin Chronic hepatitis-B Continue tenofovir GERD Continue PPI inpatient need : decided as per primary team. Time Spent With Patient Time: Total time managing care of this patient today ____ minutes. Quality Stroke Does the patient have a stroke diagnosis?: No VTE Prior VTE?: No VTE Risk Level:: Surgical - moderate VTE Device Contraindication: N/A - Device Ordered VTE Drug Contraindication: Treatment Not Indicated
[2022-07-05] MEDS: Omeprazole 40 MG CAPSULE.DR PO (10:26)
[2022-07-05] MEDS: Metoprolol Tartrate 50 MG TABLET PO ×2 (10:26→20:26)
[2022-07-05] MEDS: dilTIAZem HCL CD 120 MG CAP.ER.DEG PO (10:28)
[2022-07-05] MEDS: lisinopriL 10 MG TABLET PO (10:28)
[2022-07-05] MEDS: Gabapentin 300 MG CAPSULE PO ×2 (10:28→20:26)
[2022-07-05] MEDS: Pravastatin Sodium 40 MG TABLET PO (10:29)
[2022-07-05] MEDS: oxyCODONE HCl Immed Release 5 MG TABLET PO ×2 (10:37→20:26)
[2022-07-05] MEDS: Heparin Sodium,Porcine 5,000 UNIT/ML VIAL 5000 UNIT SUBCUT ×2 (12:25→23:34)
[2022-07-05 15:31] VITALS: BP 101/52; PULSE 65; RESP 16; TEMP 36.8; O2SAT 95
[2022-07-05 19:33] VITALS: BP 110/52; PULSE 78; RESP 16; TEMP 36.3; O2SAT 97
[2022-07-05 22:36] LABS: Glucose, Whole Blood 146 mg/dL (60-115)
--- NOTE | 2022-07-06 | ECG_ITS ---
Test Reason : chest pain Blood Pressure : / mmHG Vent. Rate : 069 BPM Atrial Rate : 000 BPM P-R Int : 000 ms QRS Dur : 076 ms QT Int : 414 ms P-R-T Axes : 000 027 -69 degrees QTc Int : 443 ms Atrial fibrillation with occasional ventricular-paced complexes Low voltage QRS T wave abnormality, consider inferior ischemia T wave abnormality, consider anterolateral ischemia Abnormal ECG When compared with ECG of 12-JAN-2022 17:41, Vent. rate has decreased BY 4 BPM Referred By: rIam Escalante Electronically Signed By:ROBERT GILL
[2022-07-06] MEDS: Acetaminophen 1,000 MG/100 ML PIGGYBACK 400 MG IV ×3 (00:11→21:07)
[2022-07-06] MEDS: HYDROmorphone HCl 0.5 MG/0.5 ML SYRINGE 0.25 MG IVPUSH (03:38)
[2022-07-06 03:40] VITALS: BP 129/60; PULSE 66; RESP 17; TEMP 36.1; O2SAT 95
--- NOTE | 2022-07-06 04:02 | PC.NURSE ---
medical transcriptionist dr Castañeda notified pt has lots of pain after rceved oxy 2025 ad dilaudid at 2124 1 hour later pt was still having pain 9/10 h/a more then chest area but everything hurts. tylenol iv was ordered by dr Castañeda and helped a lot pt was able to sleep.
[2022-07-06] MEDS: oxyCODONE HCl Immed Release 5 MG TABLET PO ×2 (06:11→11:08)
--- NOTE | 2022-07-06 07:21 | PM.PNGS ---
Subjective Subjective Date of Service: 07/06/22 Interval history: c/o headache, incisional pain Physical Exam Vital Signs: Vital Signs: Last Vital Signs Temp 97 F 07/06/22 03:40 Pulse 66 07/06/22 03:40 Resp 17 07/06/22 03:40 BP 129/60 07/06/22 03:40 Pulse Ox 95 07/06/22 03:40 O2 Del Method Room Air 07/06/22 03:40 O2 Flow Rate 2 07/04/22 15:57 BMI result Body Mass Index 22.0 Const: General: no acute distress Nutritional Appearance: well nourished Orientation/consciousness: patient oriented x3 Limitations: no limitations Chest: Other: dressings clean and intact. FELICIANO with 10/140 ml last 24 hours GI: Inspection: Yes normal to inspection Skin: General skin exam: no rashes or lesions noted Neuro: General: patient oriented x3 Extrem: General: Yes normal to inspection Objective Data Active Medications Acetaminophen (Acetaminophen 325 Mg Tablet) 650 mg PO Q6H PRN PRN Reason: Pain, Moderate (Pain Scale 4-6 Diltiazem HCl (Diltiazem Hcl Cd 120 Mg Cap.Er.Deg) 120 mg PO DAILY [facility]; Protocol Last Admin: 07/05/22 10:28 Dose: 120 mg Documented By: [place] Gabapentin (Gabapentin 300 Mg Capsule) 300 mg PO BID [facility] Last Admin: 07/05/22 20:26 Dose: 300 mg Documented By: JOSE Heparin Sodium (Porcine) (Heparin Sodium,Porcine 5,000 Unit/Ml Vial) 5,000 unit SUBCUT Q12H [facility] Last Admin: 07/05/22 23:34 Dose: 5,000 unit Documented By: JOSE Hydromorphone HCl (Hydromorphone Hcl 0.5 Mg/0.5 Ml Syringe) 0.25 mg IVPUSH Q5M PRN; Protocol PRN Reason: Pain, Severe (Pain Scale 7-10) Last Admin: 07/04/22 11:56 Dose: 0.25 mg Hydromorphone HCl (Hydromorphone Hcl 0.5 Mg/0.5 Ml Syringe) 0.25 mg IVPUSH Q3H PRN; Protocol PRN Reason: Pain, Severe (Pain Scale 7-10) Last Admin: 07/06/22 03:38 Dose: 0.25 mg Documented By: JOSE Lisinopril (Lisinopril 10 Mg Tablet) 10 mg PO DAILY [facility]; Protocol Last Admin: 07/05/22 10:28 Dose: 10 mg Documented By: [place] Metoprolol Tartrate (Metoprolol Tartrate 50 Mg Tablet) 50 mg PO BID [facility]; Protocol Last Admin: 07/05/22 20:26 Dose: 50 mg Documented By: JOSE Non-Formulary Medication (Tenofovir Alafenamide [Vemlidy]) 25 mg PO DAILY [facility] Omeprazole (Omeprazole 40 Mg Capsule.Dr) 40 mg PO DAILY [facility] Last Admin: 07/05/22 10:26 Dose: 40 mg Documented By: [place] Ondansetron HCl (Ondansetron Hcl 4 Mg/2 Ml Vial) 4 mg IVPUSH QID PRN PRN Reason: Nausea Last Admin: 07/04/22 17:01 Dose: 4 mg Documented By: KILO Oxycodone HCl (Oxycodone Hcl Immed Release 5 Mg Tablet) 5 mg PO Q6H PRN PRN Reason: Pain, Moderate (Pain Scale 4-6 Last Admin: 07/06/22 06:11 Dose: 5 mg Documented By: JOSE Pravastatin Sodium (Pravastatin Sodium 40 Mg Tablet) 40 mg PO DAILY [facility] Last Admin: 07/05/22 10:29 Dose: 40 mg Documented By: [place] Sodium Chloride (0.9 % Sodium Chloride Flush 3 Ml Syringe) 3 ml IVFLUSH QSHIFT [facility] Last Admin: 07/05/22 20:27 Dose: 3 ml Documented By: JOSE Zolpidem Tartrate (Zolpidem Tartrate 5 Mg Tablet) 5 mg PO BEDTIME PRN PRN Reason: Insomnia Labs 07/05/22 05:39 07/05/22 05:39 Labs: Laboratory Results - last 24 hr 07/05/22 07/05/22 05:39 22:32 POC Glucose 146 H Estimat Average Glucose 105 Hemoglobin A1c % 5.3 Procedures Date of Service Date of Service: 07/06/22 Progress Note: A&P Assessment and plan (1) Invasive ductal carcinoma of left breast: Status: Chronic Plan Overall, patient is improved, tolerating po without nausea or vomiting. She was up and ambulating yesterday. Continued incisional pain. Wounds are clean. Will keep FELICIANO drains in. Patient feels comfortable for discharge to home today. Will follow up early next week for wound check. Time Spent With Patient Time: Total time managing care of this patient today ____ minutes. Quality Stroke Does the patient have a stroke diagnosis?: No VTE Prior VTE?: No VTE Risk Level:: Surgical - moderate VTE Device Contraindication: N/A - Device Ordered VTE Drug Contraindication: Treatment Not Indicated
[2022-07-06 07:40] VITALS: BP 142/65; PULSE 66; RESP 17; TEMP 36.6; O2SAT 96
[2022-07-06] MEDS: Metoprolol Tartrate 50 MG TABLET PO ×2 (07:44→21:07)
[2022-07-06] MEDS: lisinopriL 10 MG TABLET PO (07:44)
[2022-07-06] MEDS: dilTIAZem HCL CD 120 MG CAP.ER.DEG PO (07:44)
[2022-07-06] MEDS: Pravastatin Sodium 40 MG TABLET PO (07:44)
[2022-07-06] MEDS: Gabapentin 300 MG CAPSULE PO ×2 (07:44→21:07)
[2022-07-06] MEDS: Omeprazole 40 MG CAPSULE.DR PO (07:44)
[2022-07-06] MEDS: Acetaminophen 325 MG TABLET 650 MG PO (07:45)
[2022-07-06] MEDS: 0.9 % Sodium Chloride Flush 3 ML SYRINGE IVFLUSH (07:46)
--- NOTE | 2022-07-06 08:02 | P.F2F_ITS ---
Service Date Service Date: 07/06/22 Encounter Date of encounter: 07/06/22 Reasons for Services Signs and symptoms assessed: incisional pain, incisional tenderness, incision appearance, FELICIANO drain output Reason for mcfp: wound care and postoperative assessment and/or care Homebound: Leaving the home is medically contraindicated at this time without the asist of a device and/or another person due th the listed conditions above and below. Reason homebound: weakness related to hospital stay and unable to drive Homebound supporting statement: Ms. Thomas is s/p left simple mastectomy. She will need VNA serviced for FELICIANO drain care. Certification: Based on the above findings, I certify that this patient is confined to the home and needs intermittent mcfp care, physical therapy and/or speech therapy, or continues to need occupational therapy. The patient is under my care, and I have initiated the establishment of the plan of care. The patient will be followed by a physician who will periodically review the plan of care. Time Spent With Patient Time: Total time managing care of this patient today ____ minutes.
[2022-07-06] MEDS: ondansetron HCL 4 MG/2 ML VIAL IVPUSH (08:48)
--- NOTE | 2022-07-06 08:49 | MHC.CM.PN ---
PATIENT LIVES WITH FAMILY HCP ON FILE AND VERIFIED. PLAN IS HOME (POSSIBLY TODAY) AND SHE WILL NEED VNA CASE DISCUSSED WITH [facility] AND REFERRAL PLACED. CASE MANAGEMENT FOLLOWING IMM 07/05 IN CHART PATIENT WAS NOT ABLE TO SIGN AT TIME OF ASSESSMENT, SHE WAS RECEIVING CARE FOR HER BANDAGING, BUT SHE DOES VERBALIZE UNDERSTANDING OF HER MEDICARE RIGHTS
--- NOTE | 2022-07-06 09:47 | MHC.CM.PN ---
[facility] OFFERING SERVICES PENDING PCP VERIFICATION
--- NOTE | 2022-07-06 09:48 | PM.DS ---
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 HOSPITAL COURSE: On 07/04/22, left simple mastectomy was performed by Dr. Ferreira without complication. The patient tolerated the procedure well and was admitted for observation following. She remained inpatient for pain control for two nights. Her home meds were resumed and xarelto on POD #2. She did develop headache, chest pain and dizziness on POD #2 an discharge was therefore held. EKG and troponins were obtained. Troponin was negative. EKG showed atrial fibrillation. Repeat CBC showed H/H improved. Her symptoms resolved. On the day of discharge, she had adequate pain control on oral analgesics, was tolerating a solid diet, and OOB without difficulty. Her mastectomy incision was clean with mild ecchymosis and viable flaps. Her FELICIANO had moderate sanguineous output and were kept in place. She was discharged to home on 07/07/22 in stable condition with VNA services for FELICIANO drain care and dressing changes. She is to follow up in the office in 1 week. Status at Discharge Functional status at discharge: independent ambulation Overall status at discharge: patient is progressing back to baseline Time Spent with Patient Time attestation: Total time managing care of this patient today ____ minutes. Discharge coordination time: Less than 30 minutes Quality: Safe Use of Opioids Does Pt have an Active Cancer Diagnosis on the Problem List?: Yes Opioid Measure Date for [facility] Report: 06/11/22 Opioid Measure Time for [facility] Report: 14:32 Quality: Stroke Does the patient have a stroke diagnosis?: No Physical Exam Vital Signs: Vital Signs: Last Vital Signs Temp 97.9 F 07/06/22 07:40 Pulse 66 07/06/22 07:40 Resp 17 07/06/22 07:40 BP 142/65 H 07/06/22 07:40 Pulse Ox 96 07/06/22 07:40 O2 Del Method Room Air 07/06/22 07:40 O2 Flow Rate 2 07/04/22 15:57 BMI result Body Mass Index 22.0 Const: General: comfortable, no acute distress and alert Orientation/consciousness: patient oriented x3 Chest: Other: left mastectomy incision clean, mild surrounding ecchymosis, mildly tender, flaps viable; FELICIANO drains with sanguineous output Resp: Effort & Inspection: normal respiratory effort Skin: General skin exam: no rashes or lesions noted Neuro: General: patient oriented x3 and moves all extremities DS: Data Data Completed and Pending Pending studies at discharge: Pending at discharge 07/04/22 10:29 Surgical [PTH] Routine Labs on day of discharge: Laboratory Results - last 24 hr 07/05/22 22:32 POC Glucose 146 H Discharge Plan Discharge Anticipated Discharge Date/Time: 07/07/22 08:19 Patient Disposition: Home Health Service Discharge Diagnosis: left breast CA s/p left simple mastectomy Referrals: Ron ALVAREZ [Outside] - 3-5 Days Severo Ferreira MD [Physician] - 1 Week Po,Maurilio Brooke MD [Primary Care Provider] - 1 Week Discharge Medications: New oxycodone 5 mg Tablet 5 mg PO Q6H PRN (Reason: Pain, Moderate (Pain Scale 4-6) Qty: 15 0RF Rx Instructions: Partial Fill upon patient request. Continued (DME) blood-glucose meter [OneTouch Ultra2 Meter] Kit See Rx Instructions .ROUTE .MEDSUPPLY Qty: 1 0RF Rx Instructions: As directed check the blood sugar once a day (DME) blood sugar diagnostic Strip See Rx Instructions .ROUTE .MEDSUPPLY Qty: 100 3RF Rx Instructions: As directed check the blood sugar once a day (DME) lancets [OneTouch SureSoft Lancing Dev] 28 gauge misc See Rx Instructions .Route Qty: 100 3RF Rx Instructions: As directed check the blood sugar once a day (DME) FreeStyle Jesse 2 Ayr Misc See Rx Instructions .ROUTE .COMPLEX Qty: 1 0RF Dose Instruction: USE DIRECTED Rx Instructions: USE DIRECTED (DME) FreeStyle Jesse 2 Sensor Kit See Rx Instructions .ROUTE .COMPLEX Qty: 6 0RF Dose Instruction: USE DIRECTED Rx Instructions: USE DIRECTED lisinopril 10 mg tablet 10 mg PO DAILY Qty: 90 3RF pravastatin 40 mg tablet 40 mg PO DAILY Qty: 90 3RF gabapentin 300 mg Capsule 300 mg PO BID Qty: 60 3RF omeprazole 40 mg capsule,delayed release(DR/EC) 40 mg PO DAILY metoprolol tartrate 50 mg tablet 50 mg PO BID Xarelto 20 mg tablet 20 mg PO DAILY Vemlidy 25 mg tablet 25 mg PO DAILY diltiazem HCl 120 mg capsule,extended release 24 hr 120 mg PO DAILY Qty: 90 3RF (DME) lancets [OneTouch Delica Plus Lancet] 33 gauge misc See Rx Instructions .ROUTE DAILY Qty: 100 Rx Instructions: As directed Discharge Orders: Discharge Order (Routine); Ordered 07/07/22 Ordered By: Severo Ferreira Diet: Diabetic diet Activity on Discharge: No heavy lifting Stand Alone Forms: Patient Portal Discharge page Activity Restrictions/Additional Instructions: If the incision area is tender, you may apply an ice pack for short intervals (No more than 20 minutes on, followed by at least 20 minutes off). Do not apply heat. Do not use creams, lotions, or topical antibiotics. These can cause infection or allergic reaction. Ok to shower. Remove dressing prior and replace. You have steri strips on your incision and these will fall off in ~1 week (ok if sooner). NO HEAVY LIFTING (>10lbs) with your left arm. FELICIANO drain care- empty drain BID and as needed. Record output. Bring record to follow up appointment. Follow up in office with Dr. Ferreira in 1 week. ([phone]) Call Your Doctor If: ? ? -Your temperature exceeds 101.5? F? ? ? -You experience excessive pain or swelling ? ? -You have an unexpected reaction to medication ? ? -You have excessive bleeding ? ? -You experience continued vomiting/nausea ? ? -Your incision begins to separate ?? ? -Your incision shows signs of infection such as increased redness, swelling, excessive pain, drainage (light blood or clear fluid is normal) or heat Care Plan Goals: Return to baseline health and resume normal activities following recovery period. FELICIANO drain removal Health Concerns: Left breast CA Plan of Treatment: s/p left simple mastectomy drain care pain control VNA services f/u in office in 1 week Assessment: Doing well post op Discharge Date/Time: 07/07/22 09:28
[2022-07-06] MEDS: Heparin Sodium,Porcine 5,000 UNIT/ML VIAL 5000 UNIT SUBCUT (11:07)
[2022-07-06] MEDS: Butalb/Acetamin/Caff 50/325/40 TABLET 1 TAB PO (12:49)
--- NOTE | 2022-07-06 12:58 | MHC.CLN ---
F/U DIET= DIABETIC 1800 KCALS. ENSURE BID PROVIDES ADDITIONAL 700 KCALS, 40 G PROTEIN. INTAKE AT MEALS APPEARS GOOD. FOLLOW FOR INTAKE.
[2022-07-06 13:40] LABS: Troponin-I High Sensitivity 7.6 ng/L (<3.5-17.0)
[2022-07-06] MEDS: Rivaroxaban 20 MG TABLET PO (16:06)
[2022-07-06 16:14] VITALS: BP 140/64; PULSE 52; RESP 17; TEMP 36.1; O2SAT 96
[2022-07-06 20:00] VITALS: BP 164/79; PULSE 82; RESP 18; TEMP 36.8; O2SAT 97
[2022-07-06 20:45] VITALS: BP 144/65
[2022-07-07] MEDS: Acetaminophen 1,000 MG/100 ML PIGGYBACK 400 MG IV (02:55)
[2022-07-07 03:20] VITALS: BP 148/67; PULSE 68; RESP 18; TEMP 36.2; O2SAT 96
[2022-07-07 05:47] LABS: MANUAL DIFF FLAG NO
[2022-07-07 05:50] LABS: Basophils Percent Auto 0.6 % (0-2); Eosinophils Absolute Auto 0.4 X10*3/uL (0.0-0.4); Hematocrit 27.7 % (37.0-47.0); Hemoglobin 8.7 g/dl (12.0-16.0); Imm Gran Abs Auto 0.01 X10*3/uL (0.00-0.03); Imm Gran Pct Auto 0.2 % (0.0-0.4); Lymphocytes Absolute Auto 1.5 X10*3/uL (1.2-4.9); Lymphocytes Percent Auto 29.6 % (20-40); Mean Corpuscular HGB Conc 31.4 g/dl (31.0-35.0); Mean Corpuscular Hemoglobin 29.6 pg (27.0-33.0); Mean Corpuscular Volume 94.2 fL (80.0-98.0); Mean Platelet Volume 9.2 fL (9.4-12.3); Monocytes Absolute Auto 0.6 X10*3/uL (0.1-1.2); Monocytes Percent Auto 11.1 % (2-11); Neutrophils Absolute Auto 2.6 x10*3/uL (2.0-8.3); Neutrophils Percent Auto 50.5 % (45-73); Platelet Count 150 X10*3/uL (160-400); Red Blood Count 2.94 X10*6/uL (4.20-5.50); Red Cell Distribution Width 13.2 % (11.0-16.0); White Blood Count 5.1 X10*3/uL (4.8-10.8)
[2022-07-07 07:58] VITALS: BP 147/70; PULSE 78; RESP 16; TEMP 36.1; O2SAT 97
[2022-07-07] MEDS: lisinopriL 10 MG TABLET PO (08:23)
[2022-07-07] MEDS: 0.9 % Sodium Chloride Flush 3 ML SYRINGE IVFLUSH (08:23)
[2022-07-07] MEDS: Pravastatin Sodium 40 MG TABLET PO (08:23)
[2022-07-07] MEDS: Omeprazole 40 MG CAPSULE.DR PO (08:23)
[2022-07-07] MEDS: Gabapentin 300 MG CAPSULE PO (08:23)
[2022-07-07] MEDS: Metoprolol Tartrate 50 MG TABLET PO (08:23)
[2022-07-07] MEDS: dilTIAZem HCL CD 120 MG CAP.ER.DEG PO (08:23)
--- NOTE | 2022-07-07 08:33 | PM.DS ---
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 HOSPITAL COURSE: On 07/04/22, left simple mastectomy was performed by Dr. Ferreira without complication. The patient tolerated the procedure well and was admitted for observation following. She remained inpatient for pain control for two nights. Her home meds were resumed and xarelto on POD #2. She did develop headache, chest pain and dizziness on POD #2 an discharge was therefore held. EKG and troponins were obtained. Troponin was negative. EKG showed atrial fibrillation. Repeat CBC showed H/H improved. Her symptoms resolved. On the day of discharge, she had adequate pain control on oral analgesics, was tolerating a solid diet, and OOB without difficulty. Her mastectomy incision was clean with mild ecchymosis and viable flaps. Her FELICIANO had moderate sanguineous output and were kept in place. She was discharged to home on 07/07/22 in stable condition with VNA services for FELICIANO drain care and dressing changes. She is to follow up in the office in 1 week. Status at Discharge Functional status at discharge: independent ambulation Time Spent with Patient Time attestation: Total time managing care of this patient today ____ minutes. Discharge coordination time: Less than 30 minutes Quality: Safe Use of Opioids Does Pt have an Active Cancer Diagnosis on the Problem List?: Yes Opioid Measure Date for [facility] Report: 06/07/22 Opioid Measure Time for [facility] Report: 08:34 Quality: Stroke Does the patient have a stroke diagnosis?: No Physical Exam Vital Signs: Vital Signs: Last Vital Signs Temp 97.0 F 07/07/22 07:58 Pulse 78 07/07/22 07:58 Resp 16 07/07/22 07:58 BP 147/70 H 07/07/22 07:58 Pulse Ox 97 07/07/22 07:58 O2 Del Method Room Air 07/07/22 07:58 O2 Flow Rate 2 07/04/22 15:57 BMI result Body Mass Index 22.0 Const: General: comfortable, no acute distress and alert Orientation/consciousness: patient oriented x3 Chest: Other: left mastectomy incision clean, mild surrounding ecchymosis, mildly tender, flaps viable; FELICIANO drains with sanguineous output Resp: Effort & Inspection: normal respiratory effort Skin: General skin exam: no rashes or lesions noted Neuro: General: patient oriented x3 and moves all extremities DS: Data Data Completed and Pending Pending studies at discharge: Pending at discharge 07/04/22 10:29 Surgical [PTH] Routine Labs on day of discharge: Laboratory Results - last 24 hr 07/06/22 07/07/22 13:08 05:36 WBC 5.1 RBC 2.94 L Hgb 8.7 L Hct 27.7 L MCV 94.2 MCH 29.6 MCHC 31.4 RDW 13.2 Plt Count 150 L MPV 9.2 L Immature Gran % (Auto) 0.2 Neut % (Auto) 50.5 Lymph % (Auto) 29.6 Pettis % (Auto) 11.1 H Eos % (Auto) 8.0 H Baso % (Auto) 0.6 Lymph # (Auto) 1.5 Pettis # (Auto) 0.6 Eos # (Auto) 0.4 Baso # (Auto) 0.0 Abs Immat Gran (auto) 0.01 Absolute Neuts (auto) 2.6 Absolute Nucleated RBC 0.000 Nucleated RBC % (auto) 0.0 Troponin I High Sens 7.6 Discharge Plan Discharge Anticipated Discharge Date/Time: 07/07/22 08:19 Patient Disposition: Home Health Service Discharge Diagnosis: left breast CA s/p left simple mastectomy Referrals: Ron ALVAREZ [Outside] - 1 Week Severo Ferreira MD [Physician] - 1 Week Po,Maurilio Brooke MD [Primary Care Provider] - 1 Week Discharge Medications: New oxycodone 5 mg Tablet 5 mg PO Q6H PRN (Reason: Pain, Moderate (Pain Scale 4-6) Qty: 15 0RF Rx Instructions: Partial Fill upon patient request. Continued (DME) blood-glucose meter [OneTouch Ultra2 Meter] Kit See Rx Instructions .ROUTE .MEDSUPPLY Qty: 1 0RF Rx Instructions: As directed check the blood sugar once a day (DME) blood sugar diagnostic Strip See Rx Instructions .ROUTE .MEDSUPPLY Qty: 100 3RF Rx Instructions: As directed check the blood sugar once a day (DME) lancets [OneTouch SureSoft Lancing Dev] 28 gauge misc See Rx Instructions .Route Qty: 100 3RF Rx Instructions: As directed check the blood sugar once a day (DME) FreeStyle Jesse 2 [place] Misc See Rx Instructions .ROUTE .COMPLEX Qty: 1 0RF Dose Instruction: USE DIRECTED Rx Instructions: USE DIRECTED (DME) FreeStyle Jesse 2 Sensor Kit See Rx Instructions .ROUTE .COMPLEX Qty: 6 0RF Dose Instruction: USE DIRECTED Rx Instructions: USE DIRECTED lisinopril 10 mg tablet 10 mg PO DAILY Qty: 90 3RF pravastatin 40 mg tablet 40 mg PO DAILY Qty: 90 3RF gabapentin 300 mg Capsule 300 mg PO BID Qty: 60 3RF omeprazole 40 mg capsule,delayed release(DR/EC) 40 mg PO DAILY metoprolol tartrate 50 mg tablet 50 mg PO BID Xarelto 20 mg tablet 20 mg PO DAILY Vemlidy 25 mg tablet 25 mg PO DAILY diltiazem HCl 120 mg capsule,extended release 24 hr 120 mg PO DAILY Qty: 90 3RF (DME) lancets [OneTouch Delica Plus Lancet] 33 gauge misc See Rx Instructions .ROUTE DAILY Qty: 100 Rx Instructions: As directed cephalexin 500 mg capsule 500 mg PO Q8H 10 Days Qty: 30 0RF Discharge Orders: Discharge Order (Routine); Ordered 07/07/22 Ordered By: Severo Ferreira Diet: Diabetic diet Activity on Discharge: No heavy lifting Stand Alone Forms: Patient Portal Discharge page Activity Restrictions/Additional Instructions: If the incision area is tender, you may apply an ice pack for short intervals (No more than 20 minutes on, followed by at least 20 minutes off). Do not apply heat. Do not use creams, lotions, or topical antibiotics. These can cause infection or allergic reaction. Ok to shower. Remove dressing prior and replace. You have steri strips on your incision and these will fall off in ~1 week (ok if sooner). NO HEAVY LIFTING (>10lbs) with your left arm. FELICIANO drain care- empty drain BID and as needed. Record output. Bring record to follow up appointment. Follow up in office with Dr. Ferreira in 1 week. ([phone]) Call Your Doctor If: ? ? -Your temperature exceeds 101.5? F? ? ? -You experience excessive pain or swelling ? ? -You have an unexpected reaction to medication ? ? -You have excessive bleeding ? ? -You experience continued vomiting/nausea ? ? -Your incision begins to separate ?? ? -Your incision shows signs of infection such as increased redness, swelling, excessive pain, drainage (light blood or clear fluid is normal) or heat Care Plan Goals: Return to baseline health and resume normal activities following recovery period. FELICIANO drain removal Health Concerns: Left breast CA Plan of Treatment: s/p left simple mastectomy drain care pain control VNA services f/u in office in 1 week Assessment: Doing well post op
--- NOTE | 2022-07-07 09:02 | MHC.CM.PN ---
PT WILL DC HOME TODAY WITH AMITA ALV[facility] FOR [facility] FAM[facility] TO TRANSPORT
== END 2022-07-07 09:28 | disposition home health service (06) | DRG 582 ==
LOC: HO.SSSA 07:07 → HO.S3 09:36
PROVIDERS: Physician Assistant Surgical; Student in an Organized Health Care Education/Training Program; Admitting Provider Surgery; PCP Internal Medicine; Visit Provider Surgery
PROC: 0HTU0ZZ Resection of Left Breast, Open Approach (ICD-10-PCS; CPT 19303; principal; 2022-07-04 08:40)
DX: C50.812 Malignant neoplasm of overlapping sites of left female breast (principal); B18.1 Chronic viral hepatitis B without delta-agent; Z17.1 Estrogen receptor negative status [ER-]; I48.91 Unspecified atrial fibrillation; E11.9 Type 2 diabetes mellitus without complications; E78.5 Hyperlipidemia, unspecified; I10 Essential (primary) hypertension; K21.9 Gastro-esophageal reflux disease without esophagitis; Z95.0 Presence of cardiac pacemaker; Z91.040 Latex allergy status; Z79.01 Long term (current) use of anticoagulants; Z79.899 Other long term (current) drug therapy
CPT/HCPCS: 19303; 36415; 80048; 82947; 83036; 84484; 85025; 86850; 86900; 86901; 88307; 93005; J0131; J0690; J1100; J1170; J1643; J2250; J2405; J2550; J3010

== ENCOUNTER 2022-07-08 20:51 | Observation (INO) | payer MEDICARE, SELFPAY ==
--- NOTE | ~2022-07-08 | CT_ITS ---
EXAMINATION: CT CHEST WITHOUT CONTRAST CLINICAL INFORMATION: s/p mastectomy, r/o hematoma/seroma under incision COMPARISON: None available. TECHNIQUE: Multidetector volumetric CT imaging of the chest was done. Axial MIP volume rendering provided. Sagittal and coronal reformatted images were obtained. This CT examination was performed using dose optimization techniques as appropriate, variously including the following: *Automated exposure control *Adjustment of mA and/or kV according to patient size (this includes techniques or standardized protocols for targeted exams where dose is matched to indication/reason for exam; i.e. extremities or head) *Use of iterative reconstruction technique DLP: 262 mGy-cm FINDINGS: LUNGS: Curvilinear subsegmental atelectasis is present in the bilateral lower lobes. No additional consolidation. MEDIASTINUM: The visualized thyroid gland is unremarkable. No discrete mediastinal lymphadenopathy is seen, though assessment is suboptimal without intravenous contrast. Cardiac size is within normal limits; no pericardial effusion. Scattered atherosclerotic calcifications are present. Left-sided pacemaker lead tips extend to the right atrium and right ventricle. Right IJ port catheter tip lies in the region of the cavoatrial junction. CORONARY ARTERY CALCIFICATION: None visualized on this study. PLEURA: No pneumothorax or significant pleural effusion. AXILLA/CHEST WALL: Left chest wall generator device is present. Status post left mastectomy as per patient history, with 2 surgical drains present. There are several, ill-defined mildly hyperattenuating masslike densities throughout the left chest wall which are favored to reflect hematomas in the postoperative setting. Home Assessment Nurse examples include measurements of 5.4 x 2.1 cm on axial image 36/57 laterally, 3.7 x 1.4 cm on image 34/57 medially, and 4.1 x 1.4 cm on image 34/57 anterolaterally. There is also a fluid collection which appears to be at least partially well contained in the lateral chest wall/axilla suggest seen on image 20/57 measuring approximately 4.1 x 1.9 cm and up to 4.5 cm in craniocaudal dimension; few small foci of gas are present within this collection more inferiorly, and this could reflect postoperative seroma or possibly developing abscess in the proper clinical setting. Several additional scattered foci of gas are present in the left chest wall. No lymphadenopathy is seen. UPPER ABDOMEN: Patient is status post cholecystectomy. Partially visualized right upper pole renal cyst; no follow-up recommended. OSSEOUS STRUCTURES: Scattered degenerative endplate changes in the spine. CT/CT chest wo IV con IMPRESSION: Status post left mastectomy as per patient history. Several ill-defined mildly hyperattenuating masslike densities throughout the left chest wall are favored to reflect hematomas in the postoperative setting. There is also a fluid collection which appears at least partially well-contained in the lateral chest wall/axilla, measuring up to approximately 4.5 cm. Few small foci of gas are present within this collection, and this could represent postoperative seroma or possibly developing abscess in the proper clinical setting.
--- NOTE | ~2022-07-08 | CT_ITS ---
EXAMINATION: CT ANGIOGRAM NECK AND HEAD CLINICAL INFORMATION: New onset blurred vision COMPARISON: Head CT 12/12/2021 TECHNIQUE: Initial noncontrast head CT was performed. Test bolus sequences followed by intravenous administration 70 mL of Omnipaque 350. Helical imaging was performed in the axial plane from the thoracic inlet to the skull vertex. Delayed postcontrast imaging of the head was also performed. The data was processed at the remote sensing technologist's workstation for generation of MIP sequences. Angled MIPs and volume rendered reformatted images were also generated at an offline 3D workstation. Stenoses are assessed in accordance with NASCET criteria unless otherwise indicated. DOSE LOWERING TECHNIQUES: This CT examination was performed using dose optimization techniques as appropriate, variously including the following: - Automated exposure control - Adjustment of mA and/or kV according to patient size (this includes techniques or standardized protocols for targeted exams were dose is matched to indication/reason for exam; i.e. extremities or head) - Use of iterative reconstruction technique DLP: 2214 mGy-cm FINDINGS: Neck CTA: There is a classic 3 vessel branching pattern of the aortic arch. Mild scattered calcification along the visualized thoracic aorta. No evidence of stenosis at the branch origins. Both vertebral arteries are widely patent throughout their extracranial cervical course. Normal appearance of the common and internal carotid arteries without focal stenosis. Brain CTA: Normal appearance of the right intradural vertebral artery. There is calcified and noncalcified plaque along much of the left intradural vertebral artery with associated luminal narrowing. The distalmost portion of the intradural vertebral artery is not clearly opacified, and the vessel may end in PICA. Normal appearance of the basilar and superior cerebellar arteries. There is origin of the bilateral posterior cerebral arteries, which appear well-opacified bilaterally. Normal appearance of the intradural internal carotid arteries without focal stenosis. Normal appearance of the anterior cerebral and middle cerebral arteries without focal occlusion or stenosis. Normal anterior communicating artery. Normal arborization of the middle cerebral arteries. CT Head: No intracranial mass, hemorrhage, extra-axial collection, or midline shift. The manrique-white matter differentiation is preserved. Mild volume loss is noted. No pathologic intra-axial enhancement or regional oligemia. No hydrocephalus. Slight mucosal thickening of the right maxillary sinus. The mastoid air cells are well-aerated. CT Neck: The thyroid gland and remaining cervical soft tissues are normal in appearance. No acute cervical spine abnormalities demonstrated. There is mild disc space narrowing with minimal endplate osteophyte formation at C5-C6. Upper Chest: No abnormalities in the visualized lung apices or upper mediastinum. CT/CT angio head neck IMPRESSION: 1. No acute intracranial findings. 2. Calcified and noncalcified plaque along much of the left intradural vertebral artery with associated luminal narrowing. The distalmost intradural vertebral artery is not clearly opacified, and the vessel may end in PICA. Basilar artery and posterior cerebral arteries are well-opacified, with origins noted. 3. No hemodynamically significant stenosis in the major arteries of the neck.
[2022-07-08 20:56] VITALS: BP 142/52; PULSE 66; RESP 18; TEMP 37; O2SAT 97; BMI 26.5
--- NOTE | 2022-07-08 20:59 | ED_ITS ---
HPI - General Adult General Chief complaint: General Medical <Abner Tyler - Last Filed: 07/08/22 21:00> Stated complaint: mysectomy bleeding <Abner Tyler - Last Filed: 07/08/22 21:00> Time Seen by Provider: 07/08/22 22:10 <Abner Tyler - Last Filed: 07/08/22 21:00> Related Data Home medications: Home Medications Medication Instructions Recorded Confirmed lancets 33 gauge (Progressive Lighting And Energy SolutionsTouch Delica #100 ea 01/02/22 07/03/22 Plus Lancet) metoprolol tartrate 50 mg tablet 50 mg PO BID 07/04/22 07/04/22 omeprazole 40 mg capsule,delayed 40 mg PO DAILY 07/04/22 07/04/22 release rivaroxaban 20 mg tablet (Xarelto) 20 mg PO DAILY 07/04/22 07/04/22 tenofovir alafenamide 25 mg tablet 25 mg PO DAILY 07/04/22 07/04/22 (Vemlidy) Previous Rx's Medication Instructions Recorded blood sugar diagnostic #100 ea 02/23/21 blood-glucose meter (Progressive Lighting And Energy SolutionsTouch #1 ea 02/23/21 Ultra2 Meter kit) lancets 28 gauge (OneTouch #100 ea 02/23/21 SureSoft Lancing Devices) diltiazem HCl 120 mg capsule,24 120 mg PO DAILY #90 caps 06/13/21 hr,extended release gabapentin 300 mg capsule 300 mg PO BID #60 caps 01/29/22 flash glucose scanning reader #1 ea 03/19/22 (FreeStyle Jesse 2 [place]) flash glucose sensor (OrbsterStyle #6 ea 05/03/22 Jesse 2 Sensor kit) lisinopril 10 mg tablet 10 mg PO DAILY #90 tabs 06/28/22 pravastatin 40 mg tablet 40 mg PO DAILY #90 tabs 06/28/22 cephalexin 500 mg capsule 500 mg PO Q8H 10 days #30 caps 06/29/22 oxycodone 5 mg tablet 5 mg PO Q6H PRN Pain, Moderate 07/06/22 (Pain Scale 4-6 #15 tabs ondansetron 4 mg disintegrating 4 mg PO Q8H PRN nausea and 07/08/22 tablet vomiting 5 days #20 tabs <Abner Tyler - Last Filed: 07/08/22 21:00> Allergies/adverse reactions: Allergies Allergy/AdvReac Type Severity Reaction Status Date / Time latex [LATEX] Allergy Intermediate RASH WITH Verified 07/08/22 20:56 CONTACT <Abner Tyler - Last Filed: 07/08/22 21:00> [facility] Past Medical History Medical History: Medical History Abnormal ultrasound of breast Essential hypertension GERD (gastroesophageal reflux disease) Hypercholesteremia On beta harley at home Pacemaker (~2008) PAF (paroxysmal atrial fibrillation) Port-A-Cath in place PUD (peptic ulcer disease) Screening for breast cancer Vertigo <Abner Tyler - Last Filed: 07/08/22 21:00> Surgical History: Surgical History History of appendectomy History of cholecystectomy History of lumpectomy of left breast History of permanent cardiac pacemaker placement History of tubal ligation <Abner Tyler - Last Filed: 07/08/22 21:00> Family History Family History: Family History Mother No problems noted. Father No problems noted. <Abner Tyler - Last Filed: 07/08/22 21:00> Social History Social History: Social History Household Members: Spouse Housing: Apartment Are you a primary director career services to a significant other at home: No Do you presently have visiting nurse or other home services: No Alcohol intake: never Patient Tobacco Use Status: Never used Tobacco Smoked in Last 30 Days: No e-Cigarette/Vaping Use: Never Used Second Hand Smoke Exposure: No Use of substances other than those prescribed or required for medical reasons: No Advance Directives: Yes Advance Directives on File: Yes Advance Directives Date on File: 04/19/17 service: No Current occupational status: retired 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 Cognitive needs: No Hearing needs: No Vision needs: Yes <Abner Tyler - Last Filed: 07/08/22 21:00> Physical Exam ED Vital Signs: Vital Signs - 24 hr 07/08/22 20:56 07/08/22 22:46 07/09/22 01:06 Temperature 98.6 F 98.2 F Pulse Rate 66 60 83 Respiratory Rate 18 16 16 Blood Pressure 142/52 H 137/45 L 142/53 H Pulse Oximetry 97 96 97 Oxygen Delivery Method Room Air Room Air Room Air 07/09/22 01:12 07/09/22 02:14 Temperature 98.2 F Pulse Rate 77 Respiratory Rate 16 17 Blood Pressure 141/57 H Pulse Oximetry 98 Oxygen Delivery Method Room Air BMI result Body Mass Index 26.5 <Abner Tyler - Last Filed: 07/08/22 21:00> Vital Signs - 24 hr 07/08/22 20:56 07/08/22 22:46 07/09/22 01:06 Temperature 98.6 F 98.2 F Pulse Rate 66 60 83 Respiratory Rate 18 16 16 Blood Pressure 142/52 H 137/45 L 142/53 H Pulse Oximetry 97 96 97 Oxygen Delivery Method Room Air Room Air Room Air 07/09/22 01:12 07/09/22 02:14 Temperature 98.2 F Pulse Rate 77 Respiratory Rate 16 17 Blood Pressure 141/57 H Pulse Oximetry 98 Oxygen Delivery Method Room Air BMI result Body Mass Index 26.5 <Rosmery Oden MD - Last Filed: 07/09/22 02:26> Course Course Course Narrative: 66 year old female presents for evaluation of bleeding from her mastectomy wound. Patient had a left mastectomy a last Saturday07/04/[address] Ferreira. Reports that she was discharged yesterday and has been bleeding from the suture site since last night. Reports lightheadedness. Plans for labs, type and screen, and coagulation studies. She has left breast cancer and is not currently undergoing any count of radiation or chemotherapy. <Abner Tyler - Last Filed: 07/08/22 21:00> Medications Administered Discontinued Medications Generic Name Dose Route Start Last Admin Trade Name Freq PRN Reason Stop Dose Admin Iohexol 70 ml 07/09/22 00:58 07/09/22 00:59 Iohexol 350 Mg/Ml 100 Ml Infus..Btl IV 07/09/22 00:59 70 ml ONCE ONE Administration Morphine Sulfate 4 mg 07/08/22 22:34 07/09/22 01:12 Morphine Sulfate 4 Mg/Ml Cartridge IVPUSH 07/08/22 22:35 4 mg ONCE ONE Administration Protocol <Abner Tyler - Last Filed: 07/08/22 21:00> Medications Administered Discontinued Medications Generic Name Dose Route Start Last Admin Trade Name Dudley PRN Reason Stop Dose Admin Iohexol 70 ml 07/09/22 00:58 07/09/22 00:59 Iohexol 350 Mg/Ml 100 Ml Infus..Btl IV 07/09/22 00:59 70 ml ONCE ONE Administration Morphine Sulfate 4 mg 07/08/22 22:34 07/09/22 01:12 Morphine Sulfate 4 Mg/Ml Cartridge IVPUSH 07/08/22 22:35 4 mg ONCE ONE Administration Protocol <Rosmery Oden MD - Last Filed: 07/09/22 02:26> Medical Decision Making Medical Decision Making [facility] Narrative: - patient has minimal oozing after applying pressure. However, shortly after it was started bleeding. Surgical was applied to the surgical site. -I discussed the CT and CTA of the head and neck with the patient and her da elanahter. Patient likely has a seroma. I do not believe this is an abscess, white blood cell count normal, no fever, no pus drainage. Patient states that the blurry vision completely resolved after patient was given morphine for pain. Patient states that the pain is well controlled at this time and does not require any more pain medication. -patient is very concerned that when she goes home she will start bleeding again and then will have to come back to the emergency room. Patient states that earlier today a visiting nurse tried stopping the bleeding which it did and shortly after the nurse left, it started bleeding again. -I discussed the patient with Dr. Ferreira, patient to be admitted under observation. <Rosmery Oden MD - Last Filed: 07/09/22 02:26> Differential Diagnosis Differential Diagnoses: The differential diagnosis associated with the presentation includes <Rosmery Oden MD - Last Filed: 07/09/22 02:26> Admission/Observation Consideration of admission/observation: Escalation of care including admission/observation considered <Rosmery Oden MD - Last Filed: 07/09/22 02:26> Consult Healthcare Provider Management of the patient was discussed with: Remote Operations Producer <Rosmery Oden MD - Last Filed: 07/09/22 02:26> Lab Data MDM Lab Attestation statement: I reviewed the patient's lab results. <Rosmery Oden MD - Last Filed: 07/09/22 02:26> Result Diagrams: 07/08/22 21:21 07/08/22 21:21 <Abner Tyler - Last Filed: 07/08/22 21:00> Labs: Lab Results 07/08/22 07/08/22 07/08/22 Range/Units 21:21 21:21 21:21 WBC 7.4 (4.8-10.8) X10*3/uL RBC 3.03 L (4.20-5.50) X10*6/uL Hgb 9.1 L (12.0-16.0) g/dl Hct 29.0 L (37.0-47.0) % MCV 95.7 (80.0-98.0) fL MCH 30.0 (27.0-33.0) pg MCHC 31.4 (31.0-35.0) g/dl RDW 13.6 (11.0-16.0) % Plt Count 193 D (160-400) X10*3/uL MPV 9.1 L (9.4-12.3) fL Immature Gran % (Auto) 0.4 (0.0-0.4) % Neut % (Auto) 60.1 (45-73) % Lymph % (Auto) 22.6 (20-40) % [place] % (Auto) 9.2 (2-11) % Eos % (Auto) 7.4 H (0-4) % Baso % (Auto) 0.3 (0-2) % Lymph # (Auto) 1.7 (1.2-4.9) X10*3/uL [place] # (Auto) 0.7 (0.1-1.2) X10*3/uL Eos # (Auto) 0.6 H (0.0-0.4) X10*3/uL Baso # (Auto) 0.0 (0.0-0.2) X10*3/uL Abs Immat Gran (auto) 0.03 (0.00-0.03) X10*3/uL Absolute Neuts (auto) 4.4 (2.0-8.3) x10*3/uL Absolute Nucleated RBC 0.000 (0.0-0.012) X10*3/uL Nucleated RBC % (auto) 0.0 (0.0-0.2) /100WBC PT 15.7 H (10.0-13.1) SEC INR 1.4 H (0.9-1.1) APTT 38.1 H D (26.0-36.4) SEC Sodium 139 (135-145) mmol/L Potassium 4.2 (3.3-5.1) mmol/L Chloride 105 (96-108) mmol/L Carbon Dioxide 26 (22-29) mmol/L Anion Gap 12 (12-20) BUN 9 (9-16) mg/dL Creatinine 0.66 (0.5-1.4) mg/dL Estim Creat Clear Calc 76.6 Estimated GFR > 60 Random Glucose 228 H (60-115) mg/dL Calcium 9.0 (8.4-10.2) mg/dL Total Bilirubin 0.6 (0.0-1.0) mg/dL AST 18 (5-31) U/L ALT 14 (0-31) U/L Alkaline Phosphatase 86 (39-117) U/L Total Protein 5.7 L (6.5-8.0) g/dL Albumin 3.5 (3.5-5.0) g/dL COVID-19 (AMAURY) (Negative) COVID-19 Clin [facility] Blood Type Antibody Screen 07/08/22 07/08/22 Range/Units 22:11 22:20 WBC (4.8-10.8) X10*3/uL RBC (4.20-5.50) X10*6/uL Hgb (12.0-16.0) g/dl Hct (37.0-47.0) % MCV (80.0-98.0) fL MCH (27.0-33.0) pg MCHC (31.0-35.0) g/dl RDW (11.0-16.0) % Plt Count (160-400) X10*3/uL MPV (9.4-12.3) fL Immature Gran % (Auto) (0.0-0.4) % Neut % (Auto) (45-73) % Lymph % (Auto) (20-40) % [place] % (Auto) (2-11) % Eos % (Auto) (0-4) % Baso % (Auto) (0-2) % Lymph # (Auto) (1.2-4.9) X10*3/uL [place] # (Auto) (0.1-1.2) X10*3/uL Eos # (Auto) (0.0-0.4) X10*3/uL Baso # (Auto) (0.0-0.2) X10*3/uL Abs Immat Gran (auto) (0.00-0.03) X10*3/uL Absolute Neuts (auto) (2.0-8.3) x10*3/uL Absolute Nucleated RBC (0.0-0.012) X10*3/uL Nucleated RBC % (auto) (0.0-0.2) /100WBC PT (10.0-13.1) SEC INR (0.9-1.1) APTT (26.0-36.4) SEC Sodium (135-145) mmol/L Potassium (3.3-5.1) mmol/L Chloride (96-108) mmol/L Carbon Dioxide (22-29) mmol/L Anion Gap (12-20) BUN (9-16) mg/dL Creatinine (0.5-1.4) mg/dL Estim Creat Clear Calc Estimated GFR Random Glucose (60-115) mg/dL Calcium (8.4-10.2) mg/dL Total Bilirubin (0.0-1.0) mg/dL AST (5-31) U/L ALT (0-31) U/L Alkaline Phosphatase (39-117) U/L Total Protein (6.5-8.0) g/dL Albumin (3.5-5.0) g/dL COVID-19 (AMAURY) Negative (Negative) COVID-19 Clin Com See Note Blood Type O Positive Antibody Screen NEGATIVE <Abner Tyler - Last Filed: 07/08/22 21:00> Lab Results 07/08/22 07/08/22 07/08/22 Range/Units 21:21 21:21 21:21 WBC 7.4 (4.8-10.8) X10*3/uL RBC 3.03 L (4.20-5.50) X10*6/uL Hgb 9.1 L (12.0-16.0) g/dl Hct 29.0 L (37.0-47.0) % MCV 95.7 (80.0-98.0) fL MCH 30.0 (27.0-33.0) pg MCHC 31.4 (31.0-35.0) g/dl RDW 13.6 (11.0-16.0) % Plt Count 193 D (160-400) X10*3/uL MPV 9.1 L (9.4-12.3) fL Immature Gran % (Auto) 0.4 (0.0-0.4) % Neut % (Auto) 60.1 (45-73) % Lymph % (Auto) 22.6 (20-40) % [place] % (Auto) 9.2 (2-11) % Eos % (Auto) 7.4 H (0-4) % Baso % (Auto) 0.3 (0-2) % Lymph # (Auto) 1.7 (1.2-4.9) X10*3/uL [place] # (Auto) 0.7 (0.1-1.2) X10*3/uL Eos # (Auto) 0.6 H (0.0-0.4) X10*3/uL Baso # (Auto) 0.0 (0.0-0.2) X10*3/uL Abs Immat Gran (auto) 0.03 (0.00-0.03) X10*3/uL Absolute Neuts (auto) 4.4 (2.0-8.3) x10*3/uL Absolute Nucleated RBC 0.000 (0.0-0.012) X10*3/uL Nucleated RBC % (auto) 0.0 (0.0-0.2) /100WBC PT 15.7 H (10.0-13.1) SEC INR 1.4 H (0.9-1.1) APTT 38.1 H D (26.0-36.4) SEC Sodium 139 (135-145) mmol/L Potassium 4.2 (3.3-5.1) mmol/L Chloride 105 (96-108) mmol/L Carbon Dioxide 26 (22-29) mmol/L Anion Gap 12 (12-20) BUN 9 (9-16) mg/dL Creatinine 0.66 (0.5-1.4) mg/dL Estim Creat Clear Calc 76.6 Estimated GFR > 60 Random Glucose 228 H (60-115) mg/dL Calcium 9.0 (8.4-10.2) mg/dL Total Bilirubin 0.6 (0.0-1.0) mg/dL AST 18 (5-31) U/L ALT 14 (0-31) U/L Alkaline Phosphatase 86 (39-117) U/L Total Protein 5.7 L (6.5-8.0) g/dL Albumin 3.5 (3.5-5.0) g/dL COVID-19 (AMAURY) (Negative) COVID-19 Clin Com Blood Type Antibody Screen 07/08/22 07/08/22 Range/Units 22:11 22:20 WBC (4.8-10.8) X10*3/uL RBC (4.20-5.50) X10*6/uL Hgb (12.0-16.0) g/dl Hct (37.0-47.0) % MCV (80.0-98.0) fL MCH (27.0-33.0) pg MCHC (31.0-35.0) g/dl RDW (11.0-16.0) % Plt Count (160-400) X10*3/uL MPV (9.4-12.3) fL Immature Gran % (Auto) (0.0-0.4) % Neut % (Auto) (45-73) % Lymph % (Auto) (20-40) % [place] % (Auto) (2-11) % Eos % (Auto) (0-4) % Baso % (Auto) (0-2) % Lymph # (Auto) (1.2-4.9) X10*3/uL [place] # (Auto) (0.1-1.2) X10*3/uL Eos # (Auto) (0.0-0.4) X10*3/uL Baso # (Auto) (0.0-0.2) X10*3/uL Abs Immat Gran (auto) (0.00-0.03) X10*3/uL Absolute Neuts (auto) (2.0-8.3) x10*3/uL Absolute Nucleated RBC (0.0-0.012) X10*3/uL Nucleated RBC % (auto) (0.0-0.2) /100WBC PT (10.0-13.1) SEC INR (0.9-1.1) APTT (26.0-36.4) SEC Sodium (135-145) mmol/L Potassium (3.3-5.1) mmol/L Chloride (96-108) mmol/L Carbon Dioxide (22-29) mmol/L Anion Gap (12-20) BUN (9-16) mg/dL Creatinine (0.5-1.4) mg/dL Estim Creat Clear Calc Estimated GFR Random Glucose (60-115) mg/dL Calcium (8.4-10.2) mg/dL Total Bilirubin (0.0-1.0) mg/dL AST (5-31) U/L ALT (0-31) U/L Alkaline Phosphatase (39-117) U/L Total Protein (6.5-8.0) g/dL Albumin (3.5-5.0) g/dL COVID-19 (AMAURY) Negative (Negative) COVID-19 Clin Com See Note Blood Type O Positive Antibody Screen NEGATIVE <Rosmery Oden MD - Last Filed: 07/09/22 02:26> Radiology Impression Discussion of test interpretation with radiology: I have reviewed the radiologist's reading. <Rosmery Oden MD - Last Filed: 07/09/22 02:26> Radiologist Impression: LUNGS: Curvilinear subsegmental atelectasis is present in the bilateral lower lobes. No additional consolidation.? MEDIASTINUM: The visualized thyroid gland is unremarkable. No discrete mediastinal lymphadenopathy is seen, though assessment is suboptimal without intravenous contrast. Cardiac size is within normal limits; no pericardial effusion. Scattered atherosclerotic calcifications are present. Left-sided pacemaker lead tips extend to the right atrium and right ventricle. Right IJ port catheter tip lies in the region of the cavoatrial junction. CORONARY ARTERY CALCIFICATION: None visualized on this study. PLEURA: No pneumothorax or significant pleural effusion. AXILLA/CHEST WALL: Left chest wall generator device is present. Status post left mastectomy as per patient history, with 2 surgical drains present. There are several, ill-defined mildly hyperattenuating masslike densities throughout the left chest wall which are favored to reflect hematomas in the postoperative setting. Zinc Plate Cutter examples include measurements of 5.4 x 2.1 cm on axial image 36/57 laterally, 3.7 x 1.4 cm on image 34/57 medially, and 4.1 x 1.4 cm on image 34/57 anterolaterally. There is also a fluid collection which appears to be at least partially well contained in the lateral chest wall/axilla suggest seen on image 20/57 measuring approximately 4.1 x 1.9 cm and up to 4.5 cm in craniocaudal dimension; few small foci of gas are present within this collection more inferiorly, and this could reflect postoperative seroma or possibly developing abscess in the proper clinical setting. Several additional scattered foci of gas are present in the left chest wall. No lymphadenopathy is seen. UPPER ABDOMEN: Patient is status post cholecystectomy. Partially visualized right upper pole renal cyst; no follow-up recommended.? OSSEOUS STRUCTURES: Scattered degenerative endplate changes in the spine.? CT/CT chest wo IV con IMPRESSION: Status post left mastectomy as per patient history. Several ill-defined mildly hyperattenuating masslike densities throughout the left chest wall are favored to reflect hematomas in the postoperative setting. There is also a fluid collection which appears at least partially well-contained in the lateral chest wall/axilla, measuring up to approximately 4.5 cm. Few small foci of gas are present within this collection, and this could represent postoperative seroma or possibly developing abscess in the proper clinical setting. ? <Rosmery Oden MD - Last Filed: 07/09/22 02:26> Critical Care Time Critical Care Time Critical Care Time: Yes <Rosmery Oden MD - Last Filed: 07/09/22 02:26> Total Critical Care Time: 45 <Rosmery Oden MD - Last Filed: 07/09/22 02:26> Attestation: I have personally provided critical care time. Time includes review of lab data, radiology results, discussion with consultants, and monitoring for potential decompensation. Intervention performed as documented. <Rosmery Oden MD - Last Filed: 07/09/22 02:26> Discharge Plan Discharge Clinical Impression: Seroma of musculoskeletal structure after musculoskeletal system procedure <Abner Tyler - Last Filed: 07/08/22 21:00> Patient Disposition: Admitted as Observation <Abner Tyler - Last Filed: 07/08/22 21:00> Prescriptions: No Action (DME) blood-glucose meter [OneTouch Ultra2 Meter] Kit See Rx Instructions .ROUTE .MEDSUPPLY Qty: 1 0RF Rx Instructions: As directed check the blood sugar once a day (DME) blood sugar diagnostic Strip See Rx Instructions .ROUTE .MEDSUPPLY Qty: 100 3RF Rx Instructions: As directed check the blood sugar once a day (DME) lancets [OneTouch SureSoft Lancing Dev] 28 gauge misc See Rx Instructions .Route Qty: 100 3RF Rx Instructions: As directed check the blood sugar once a day (DME) FreeStyle Jesse 2 [place] Misc See Rx Instructions .ROUTE .COMPLEX Qty: 1 0RF Dose Instruction: USE DIRECTED Rx Instructions: USE DIRECTED (DME) FreeStyle Jesse 2 Sensor Kit See Rx Instructions .ROUTE .COMPLEX Qty: 6 0RF Dose Instruction: USE DIRECTED Rx Instructions: USE DIRECTED lisinopril 10 mg tablet 10 mg PO DAILY Qty: 90 3RF pravastatin 40 mg tablet 40 mg PO DAILY Qty: 90 3RF ondansetron 4 mg tablet,disintegrating 4 mg PO Q8H PRN (Reason: nausea and vomiting) 5 Days Qty: 20 0RF gabapentin 300 mg Capsule 300 mg PO BID Qty: 60 3RF omeprazole 40 mg capsule,delayed release(DR/EC) 40 mg PO DAILY metoprolol tartrate 50 mg tablet 50 mg PO BID Xarelto 20 mg tablet 20 mg PO DAILY Vemlidy 25 mg tablet 25 mg PO DAILY oxycodone 5 mg Tablet 5 mg PO Q6H PRN (Reason: Pain, Moderate (Pain Scale 4-6) Qty: 15 0RF Rx Instructions: Partial Fill upon patient request. diltiazem HCl 120 mg capsule,extended release 24 hr 120 mg PO DAILY Qty: 90 3RF (DME) lancets [OneTouch Delica Plus Lancet] 33 gauge misc See Rx Instructions .ROUTE DAILY Qty: 100 Rx Instructions: As directed cephalexin 500 mg capsule 500 mg PO Q8H 10 Days Qty: 30 0RF <Abner Tyler - Last Filed: 07/08/22 21:00>
[2022-07-08 21:38] LABS: MANUAL DIFF FLAG NO
[2022-07-08 21:39] LABS: Basophils Percent Auto 0.3 % (0-2); Eosinophils Absolute Auto 0.6 X10*3/uL (0.0-0.4); Eosinophils Percent Auto 7.4 % (0-4); Hemoglobin 9.1 g/dl (12.0-16.0); Imm Gran Abs Auto 0.03 X10*3/uL (0.00-0.03); Imm Gran Pct Auto 0.4 % (0.0-0.4); Lymphocytes Absolute Auto 1.7 X10*3/uL (1.2-4.9); Lymphocytes Percent Auto 22.6 % (20-40); Mean Corpuscular HGB Conc 31.4 g/dl (31.0-35.0); Mean Corpuscular Volume 95.7 fL (80.0-98.0); Mean Platelet Volume 9.1 fL (9.4-12.3); Monocytes Absolute Auto 0.7 X10*3/uL (0.1-1.2); Monocytes Percent Auto 9.2 % (2-11); Neutrophils Absolute Auto 4.4 x10*3/uL (2.0-8.3); Neutrophils Percent Auto 60.1 % (45-73); Platelet Count 193 X10*3/uL (160-400); Red Blood Count 3.03 X10*6/uL (4.20-5.50); Red Cell Distribution Width 13.6 % (11.0-16.0); White Blood Count 7.4 X10*3/uL (4.8-10.8)
[2022-07-08 21:45] LABS: INTERNATIONAL NORM RATIO 1.4 (0.9-1.1); Prothrombin Time 15.7 SEC (10.0-13.1)
[2022-07-08 21:47] LABS: Partial Thromboplastin Time 38.1 SEC (26.0-36.4)
[2022-07-08 21:56] LABS: Alanine Aminotransferase 14 U/L (0-31); Albumin Level 3.5 g/dL (3.5-5.0); Alkaline Phosphatase 86 U/L (39-117); Anion Gap 12 (12-20); Aspartate Amino Transferase 18 U/L (5-31); Bilirubin Total 0.6 mg/dL (0.0-1.0); Blood Urea Nitrogen 9 mg/dL (9-16); Carbon Dioxide 26 mmol/L (22-29); Chloride 105 mmol/L (96-108); Creatinine Clr Calc Pharmacy 76.6; Estimated Glomerular Filt Rate > 60; Glucose Random 228 mg/dL (60-115); Potassium 4.2 mmol/L (3.3-5.1); Sodium 139 mmol/L (135-145); Total Protein 5.7 g/dL (6.5-8.0)
[2022-07-08 22:30] LABS: COVID-19 Test Negative (Negative); IDNOW Serial# 6674DD1D
[2022-07-08 22:46] VITALS: BP 137/45; PULSE 60; RESP 16; TEMP 36.8; O2SAT 96
[2022-07-09] VITALS (7 sets, daily range): BP systolic 124–184; BP diastolic 53–77; PULSE 67–83; RESP 16–18; TEMP 36.1–36.8; O2SAT 97–98; BMI 22.3
[2022-07-09] MEDS: iohexoL 350 MG/ML 100 ML INFUS..BTL 70 ML IV (00:59)
[2022-07-09] MEDS: Morphine Sulfate 4 MG/ML CARTRIDGE IVPUSH ×2 (01:12→10:27)
[2022-07-09] MEDS: Acetaminophen 1,000 MG/100 ML PIGGYBACK 400 MG IV ×4 (04:00→22:13)
[2022-07-09 06:32] LABS: MANUAL DIFF FLAG NO
[2022-07-09 06:34] LABS: Basophils Percent Auto 0.6 % (0-2); Eosinophils Absolute Auto 0.4 X10*3/uL (0.0-0.4); Eosinophils Percent Auto 9.3 % (0-4); Hematocrit 27.2 % (37.0-47.0); Hemoglobin 8.7 g/dl (12.0-16.0); Imm Gran Abs Auto 0.02 X10*3/uL (0.00-0.03); Imm Gran Pct Auto 0.4 % (0.0-0.4); Lymphocytes Absolute Auto 1.7 X10*3/uL (1.2-4.9); Lymphocytes Percent Auto 35.2 % (20-40); Mean Corpuscular Hemoglobin 29.7 pg (27.0-33.0); Mean Corpuscular Volume 92.8 fL (80.0-98.0); Mean Platelet Volume 9.1 fL (9.4-12.3); Monocytes Absolute Auto 0.6 X10*3/uL (0.1-1.2); Monocytes Percent Auto 11.9 % (2-11); Neutrophils Percent Auto 42.6 % (45-73); Platelet Count 169 X10*3/uL (160-400); Red Blood Count 2.93 X10*6/uL (4.20-5.50); Red Cell Distribution Width 13.7 % (11.0-16.0); White Blood Count 4.7 X10*3/uL (4.8-10.8)
--- NOTE | 2022-07-09 08:07 | PC.NURSE ---
assumed care of this patient at 0700. pt calm and pleasant, currently resting on stretcher, appears to be in no distress. room assigned, waiting to give [id number] report. vss. dean
--- NOTE | 2022-07-09 09:03 | PM.HPGS ---
History of Present Illness History of Present Illness Date of Service: 07/09/22 <Iram Escalante PA-C - Last Filed: 07/09/22 10:02> 07/09/22 <Severo Ferreira MD - Last Filed: 07/09/22 09:27> Chief complaint: Breast ca, bleeding due to meds <Iram Escalante PA-C - Last Filed: 07/09/22 10:02> Narrative: Lupe Thomas is a 66 year old female who underwent left simple mastectomy on 07/04/22 for left breast CA. Procedure was uncomplicated. She was restarted on her xarelto on POD #2. She did develop dizziness post operatively but otherwise her post operative course was uncomplicated and she was discharged home with her FELICIANO drains in place on that Saturday. Her H/H had remained stable. She reports that she developed bleeding from her incision that night. It was from the lateral aspect near the axilla. Her daughter changed the dressing multiple times. She was seen by VNA on Saturday and had a large amount of froilan blood from the incision and her sheets were saturated. She developed dizziness and lightheadedness. She was therefore sent to the ED. CBC, PT/INR, BMP were obtained. H/H slightly drifted on repeat labs this am but virtually unchanged. CT chest was performed which showed ill-defined mildly hyperattenuating masslike densities throughout the left chest wall are favored to reflect hematomas in the postoperative setting. She was noted to be oozing from the incision by the ED MD and surgicel was applied. She was admitted for observation. <Iram Escalante PA-C - Last Filed: 07/09/22 10:02> Review of Systems Constitutional: Constitutional: Denies fever(s) and Denies malaise <Iram Escalante PA-C - Last Filed: 07/09/22 10:02> ENT: Reports dizziness <MARCELA Ku Last Filed: 07/09/22 10:02> Cardiovascular: Cardiovascular: Denies chest pain and Denies dyspnea <Iram Escalante PA-C - Last Filed: 07/09/22 10:02> Respiratory: Respiratory: Denies cough and Denies dyspnea <Iram Escalante PA-C Last Filed: 07/09/22 10:02> Musculoskeletal: Comments: pain at left chest wall, mastectomy site <Iram Escalante PA-C Last Filed: 07/09/22 10:02> Integumentary/Breasts: Skin/Breast: Denies rash <Iram Escalante PA-C Last Filed: 07/09/22 10:02> Neurologic: Reports dizziness <Iram Escalante PA-C Last Filed: 07/09/22 10:02> [facility] Past Medical History Medical History: Medical History Abnormal ultrasound of breast Essential hypertension GERD (gastroesophageal reflux disease) Hypercholesteremia On beta harley at home Pacemaker (~2008) PAF (paroxysmal atrial fibrillation) Port-A-Cath in place PUD (peptic ulcer disease) Screening for breast cancer Vertigo <Iram Escalante PA-C Last Filed: 07/09/22 10:02> Family History Family History: Family History Mother No problems noted. Father No problems noted. <Iram Escalante PA-C Last Filed: 07/09/22 10:02> Surgical History Surgical History: Surgical History History of appendectomy History of cholecystectomy History of lumpectomy of left breast History of permanent cardiac pacemaker placement History of tubal ligation <MARCELA Ku Last Filed: 07/09/22 10:02> Social History Social History: Social History Household Members: Spouse Housing: Apartment Are you a primary healthcare recruiter to a significant other at home: No Do you presently have visiting nurse or other home services: No Alcohol intake: never Patient Tobacco Use Status: Never used Tobacco Smoked in Last 30 Days: No e-Cigarette/Vaping Use: Never Used Second Hand Smoke Exposure: No Use of substances other than those prescribed or required for medical reasons: No Advance Directives: Yes Advance Directives on File: Yes Advance Directives Date on File: 04/19/17 service: No Current occupational status: retired 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 Cognitive needs: No Hearing needs: No Vision needs: Yes <MARCELA Ku Last Filed: 07/09/22 10:02> Meds Allergies/Adverse reactions: Allergies Allergy/AdvReac Type Severity Reaction Status Date / Time latex [LATEX] Allergy Intermediate RASH WITH Verified 07/08/22 20:56 CONTACT <MARCELA Ku Last Filed: 07/09/22 10:02> Active Medications: Current Medications Acetaminophen (Ofirmev) 1,000 mg in 100 mls @ 400 mls/hr IV Q6H [facility] Stop: 07/09/22 22:14 Last Infusion: 07/09/22 04:28 Dose: Infused Morphine Sulfate (Morphine Sulfate 4 Mg/Ml Cartridge) 4 mg IVPUSH Q4H PRN; Protocol PRN Reason: Pain, Severe (Pain Scale 7-10) Ondansetron HCl (Ondansetron Hcl 4 Mg/2 Ml Vial) 4 mg IVPUSH Q8H PRN PRN Reason: Nausea and Vomiting Oxycodone HCl (Oxycodone Hcl Immed Release 5 Mg Tablet) 5 mg PO Q6H PRN PRN Reason: Pain, Moderate (Pain Scale 4-6 Pharmacy Consult (Consult Rx Perform Med Rec) 1 each MISCELLANE ONCE PRN PRN Reason: Consult order Sodium Chloride (0.9 % Sodium Chloride Flush 3 Ml Syringe) [facility] Last Admin: 07/09/22 07:45 Dose: Not Given Zolpidem Tartrate (Zolpidem Tartrate 5 Mg Tablet) 5 mg PO BEDTIME PRN PRN Reason: Insomnia <MARCELA Ku Last Filed: 07/09/22 10:02> Home medications: Home Medications Medication Instructions Recorded Confirmed Last Taken Type lancets 33 gauge (OneTouch Gena #100 ea 01/02/22 07/03/22 Unknown History Plus Lancet) metoprolol tartrate 50 mg tablet 50 mg PO BID 07/04/22 07/09/22 Unknown History omeprazole 40 mg capsule,delayed 40 mg PO DAILY 07/04/22 07/09/22 Unknown History release rivaroxaban 20 mg tablet (Xarelto) 20 mg PO DAILY 07/04/22 07/09/22 Unknown History tenofovir alafenamide 25 mg tablet 25 mg PO DAILY 07/04/22 07/09/22 Unknown History (Vemeyad) <MARCELA Ku Last Filed: 07/09/22 10:02> Physical Exam Vital Signs: Vital Signs: Last Vital Signs Temp 97.0 F 07/09/22 08:38 Pulse 81 07/09/22 08:38 Resp 17 07/09/22 08:38 BP 184/77 H 07/09/22 08:38 Pulse Ox 97 07/09/22 08:38 O2 Del Method Room Air 07/09/22 08:38 BMI result Body Mass Index 26.5 <MARCELA Ku Last Filed: 07/09/22 10:02> Const: General: comfortable, no acute distress and alert <MARCELA Ku Last Filed: 07/09/22 10:02> Orientation/consciousness: patient oriented x3 <MARCELA Ku Last Filed: 07/09/22 10:02> Chest: Other: left mastectomy site with moderate ecchymosis, incision is currently dry and no areas of active oozing noted, surgicel steri stripped to lateral aspect in axilla and dry; FELICIANO drains with sanguineous drainage <MARCELA Ku Last Filed: 07/09/22 10:02> Resp: Effort & Inspection: normal respiratory effort <MARCELA Ku Last Filed: 07/09/22 10:02> Cardio: Rate: regular rate <MARCELA Ku Last Filed: 07/09/22 10:02> Skin: General skin exam: no rashes or lesions noted <MARCELA Ku Last Filed: 07/09/22 10:02> Neuro: General: patient oriented x3 <MARCELA Ku Last Filed: 07/09/22 10:02> Extrem: General: Yes no clubbing, cyanosis or edema <MARCELA Ku Last Filed: 07/09/22 10:02> Results Results Labs: Short CBC 07/08/22 07/09/22 Range/Units 21:21 06:20 WBC 7.4 4.7 L (4.8-10.8) X10*3/uL Hgb 9.1 L 8.7 L (12.0-16.0) g/dl Hct 29.0 L 27.2 L (37.0-47.0) % Plt Count 193 D 169 (160-400) X10*3/uL BMP 07/08/22 21:21 Sodium 139 Potassium 4.2 Chloride 105 Carbon Dioxide 26 BUN 9 Creatinine 0.66 Calcium 9.0 Liver Function 07/08/22 Range/Units 21:21 Total Bilirubin 0.6 (0.0-1.0) mg/dL AST 18 (5-31) U/L ALT 14 (0-31) U/L Alkaline Phosphatase 86 (39-117) U/L Albumin 3.5 (3.5-5.0) g/dL <MARCELA Ku Last Filed: 07/09/22 10:02> Assessment and Plan (1) S/P left mastectomy: Status: Acute <MARCELA Ku Last Filed: 07/09/22 10:02> 66 year old female who underwent left simple mastectomy on 07/04/22 who presented with incisional bleeding. The incision is currently dry without any areas of active bleeding however FELICIANO drains do have sanguineous drainage, H/H stable. Surgicel placed to area by ED . This was left in place and new pressure dressing applied with breast binder. Will continue to observe, repeat labs in AM. Hold xarelto. If no further evidence of bleed, stable for dc to home tomorrow. Patient and family comfortable with plan. <MARCELA Ku Last Filed: 07/09/22 10:02> 66 year old female who underwent left simple mastectomy on 07/04/22 who presented with incisional bleeding. The incision is currently dry without any areas of active bleeding however FELICIANO drains do have sanguineous drainage, H/H stable. Surgicel placed to area by ED . This was left in place and new pressure dressing applied with breast binder. Will continue to observe, repeat labs in AM. Hold xarelto. If no further evidence of bleed, stable for dc to home tomorrow. Patient and family comfortable with plan. No evidence of ongoing incisional bleeding at this time. Will monitor as noted above and discharge tomrrow if stable. <Severo Ferreira MD - Last Filed: 07/09/22 09:27> Time Spent With Patient Time: Total time managing care of this patient today ____ minutes. <Iram Escalante PA-C - Last Filed: 07/09/22 10:02> Quality Stroke Does the patient have a stroke diagnosis?: No <Severo Ferreira MD - Last Filed: 07/09/22 09:27> VTE Prior VTE?: No <Severo Ferreira MD - Last Filed: 07/09/22 09:27> VTE Risk Level:: Surgical - moderate <Iram Escalante PA-C - Last Filed: 07/09/22 10:02> VTE Device Contraindication: N/A - Device Ordered <Iram Escalante PA-C - Last Filed: 07/09/22 10:02> VTE Drug Contraindication: N/A - Med Ordered <Iram Escalante PA-C - Last Filed: 07/09/22 10:02> Procedures Date of Service Date of Service: 07/09/22 <Severo Ferreira MD - Last Filed: 07/09/22 09:27>
--- NOTE | 2022-07-09 09:07 | PHA.MEDREC ---
Pharmacy Consult ? Medication Reconciliation Pharmacy has completed the medication reconciliation.
[2022-07-09] MEDS: dilTIAZem HCL CD 120 MG CAP.ER.DEG PO (10:28)
[2022-07-09] MEDS: Metoprolol Tartrate 50 MG TABLET PO ×2 (10:28→20:44)
[2022-07-09] MEDS: lisinopriL 10 MG TABLET PO (10:28)
--- NOTE | 2022-07-09 11:13 | MHC.CM.PN ---
pt lives w/[employer] [facility] .covid vax x3 has own ride home .active w/muriel
[2022-07-09] MEDS: 0.9 % Sodium Chloride Flush 3 ML SYRINGE IVFLUSH ×2 (16:42→20:45)
[2022-07-09] MEDS: Gabapentin 300 MG CAPSULE PO (20:44)
[2022-07-10 04:00] VITALS: BP 131/63; PULSE 58; RESP 18; TEMP 36.2; O2SAT 97
[2022-07-10] MEDS: Omeprazole 40 MG CAPSULE.DR PO (05:45)
[2022-07-10 08:00] VITALS: BP 168/82; PULSE 84; RESP 18; TEMP 36.2; O2SAT 99
--- NOTE | 2022-07-10 08:04 | W.MHC.F2F ---
Service Date Service Date: 07/10/22 Encounter Date of encounter: 07/10/22 Reasons for Services Signs and symptoms assessed: Patient much more comfortable this morning. FELICIANO producing serosanguineous discharge. Skin flaps clean without evidence of hematoma/seroma Reason for senior care: wound care and postoperative assessment and/or care Homebound: Leaving the home is medically contraindicated at this time without the asist of a device and/or another person due th the listed conditions above and below. Reason homebound: weakness related to hospital stay and unable to drive Certification: Based on the above findings, I certify that this patient is confined to the home and needs intermittent senior care care, physical therapy and/or speech therapy, or continues to need occupational therapy. The patient is under my care, and I have initiated the establishment of the plan of care. The patient will be followed by a physician who will periodically review the plan of care. Time Spent With Patient Time: Total time managing care of this patient today ____ minutes.
--- NOTE | 2022-07-10 08:49 | P.PNGS_ITS ---
Subjective Subjective Date of Service: 07/10/22 Interval history: Patient feels much improved today with no further dizziness. Reports being up early and walking in the hallways. Denies significant chest pain at this time. Physical Exam Vital Signs: Vital Signs: Last Vital Signs Temp 97.2 F 07/10/22 08:00 Pulse 84 07/10/22 08:00 Resp 18 07/10/22 08:00 BP 168/82 H 07/10/22 08:00 Pulse Ox 99 07/10/22 08:00 O2 Del Method Room Air 07/10/22 08:00 BMI result Body Mass Index 22.3 Const: General: comfortable and no acute distress Nutritional Appearance: well nourished Orientation/consciousness: patient oriented x3 Chest: Other: Left chest incisions clean and intact without hematoma or seroma. FELICIANO drains intact. Skin: General skin exam: no rashes or lesions noted Neuro: General: patient oriented x3 Objective Data Active Medications Diltiazem HCl (Diltiazem Hcl Cd 120 Mg Cap.Er.Deg) 120 mg PO DAILY COUNTS INCLUDE 234 BEDS AT THE [facility]; Protocol Last Admin: 07/09/22 10:28 Dose: 120 mg Documented By: CARLYLE Gabapentin (Gabapentin 300 Mg Capsule) 300 mg PO BID COUNTS INCLUDE 234 BEDS AT THE [facility] Last Admin: 07/09/22 20:44 Dose: 300 mg Documented By: LOUIS Lisinopril (Lisinopril 10 Mg Tablet) 10 mg PO DAILY COUNTS INCLUDE 234 BEDS AT THE [facility]; Protocol Last Admin: 07/09/22 10:28 Dose: 10 mg Documented By: CARLYLE Metoprolol Tartrate (Metoprolol Tartrate 50 Mg Tablet) 50 mg PO BID COUNTS INCLUDE 234 BEDS AT THE [facility]; Protocol Last Admin: 07/09/22 20:44 Dose: 50 mg Documented By: LOUIS Comments: bp 161/70 h 70 Morphine Sulfate (Morphine Sulfate 4 Mg/Ml Cartridge) 4 mg IVPUSH Q4H PRN; Protocol PRN Reason: Pain, Severe (Pain Scale 7-10) Last Admin: 07/09/22 10:27 Dose: 4 mg Documented By: CARLYLE Non-Formulary Medication (Tenofovir Alafenamide [Vemlidy]) 25 mg PO DAILY COUNTS INCLUDE 234 BEDS AT THE [facility] Omeprazole (Omeprazole 40 Mg Capsule.) 40 mg PO DAILY@0630 COUNTS INCLUDE 234 BEDS AT THE [facility] Last Admin: 07/10/22 05:45 Dose: 40 mg Documented By: LOUIS Ondansetron HCl (Ondansetron Hcl 4 Mg/2 Ml Vial) 4 mg IVPUSH Q8H PRN PRN Reason: Nausea and Vomiting Oxycodone HCl (Oxycodone Hcl Immed Release 5 Mg Tablet) 5 mg PO Q6H PRN PRN Reason: Pain, Moderate (Pain Scale 4-6 Pharmacy Consult (Consult Rx Perform Med Rec) 1 each MISCELLANE ONCE PRN PRN Reason: Consult order Pravastatin Sodium (Pravastatin Sodium 40 Mg Tablet) 40 mg PO DAILY COUNTS INCLUDE 234 BEDS AT THE [facility] Sodium Chloride (0.9 % Sodium Chloride Flush 3 Ml Syringe) 3 ml IVFLUSH QSHIFT [facility] Last Admin: 07/09/22 20:45 Dose: 3 ml Documented By: LOUIS Zolpidem Tartrate (Zolpidem Tartrate 5 Mg Tablet) 5 mg PO BEDTIME PRN PRN Reason: Insomnia Labs 07/09/22 06:20 07/08/22 21:21 Procedures Date of Service Date of Service: 07/10/22 Progress Note: A&P Assessment and plan (1) S/P left mastectomy: Status: Acute Plan Patient feels much improved today and her wounds are clean and intact. Patient is requesting discharge to home. She will follow-up in the office in approximately 1 week. She should continue to monitor drain output and call for any new concerns. Time Spent With Patient Time: Total time managing care of this patient today ____ minutes. Quality Stroke Does the patient have a stroke diagnosis?: No VTE Prior VTE?: No VTE Risk Level:: Surgical - moderate VTE Device Contraindication: N/A - Device Ordered VTE Drug Contraindication: N/A - Med Ordered
[2022-07-10] MEDS: Gabapentin 300 MG CAPSULE PO (08:52)
[2022-07-10] MEDS: dilTIAZem HCL CD 120 MG CAP.ER.DEG PO (08:52)
[2022-07-10] MEDS: Pravastatin Sodium 40 MG TABLET PO (08:52)
[2022-07-10] MEDS: lisinopriL 10 MG TABLET PO (08:53)
[2022-07-10] MEDS: Metoprolol Tartrate 50 MG TABLET PO (08:53)
--- NOTE | 2022-07-10 09:01 | P.DS_ITS ---
DS: Providers Provider Date of Service: 07/10/22 Date of admission: 07/09/22 02: Date of discharge: 07/10/22 Primary care physician: Maurilio Carias MD Attending physician on admission: Severo Ferreira DS: Diagnosis Discharge Diagnosis (1) S/P left mastectomy: Status: Acute DS: Summary Hospital Course Hospital Course: HPI AT ADMISSION: Lupe Thomas is a 66 year old female who underwent left simple mastectomy on 07/04/22 for left breast CA. Procedure was uncomplicated. She was restarted on her xarelto on POD #2. She did develop dizziness post operatively but otherwise her post operative course was uncomplicated and she was discharged home with her FELICIANO drains in place on that Saturday. Her H/H had remained stable. She reports that she developed bleeding from her incision that night. It was from the lateral aspect near the axilla. Her daughter changed the dressing multiple times. She was seen by VNA on Saturday and had a large amount of froilan blood from the incision and her sheets were saturated. She developed dizziness and lightheadedness. She was therefore sent to the ED. CBC, PT/INR, BMP were obtained. H/H slightly drifted on repeat labs this am but virtually unchanged. CT chest was performed which showed ill-defined mildly hyperattenuating masslike densities throughout the left chest wall are favored to reflect hematomas in the postoperative setting. She was noted to be oozing from the incision by the ED MD and surgicel was applied. HOSPITAL COURSE: She was admitted to the general surgical service for observation. There was no evidence of active bleeding throughout her admission and FELICIANO output remained low. Her symptoms of dizziness and lightheadedness also resolved. Her dressings were changed prior to discharge and they remained clean and dry without any active bleeding, her vitals were stable. The surgicel was removed and pressure dressing reapplied followed by breast binder. She felt ready for discharge to home. She was discharged to home on 07/10/22 in stable condition with VNA services for FELICIANO drain care and dressing changes. Status at Discharge Functional status at discharge: independent ambulation Overall status at discharge: patient is progressing back to baseline Time Spent with Patient Time attestation: Total time managing care of this patient today ____ minutes. Discharge coordination time: Less than 30 minutes Quality: Safe Use of Opioids Does Pt have an Active Cancer Diagnosis on the Problem List?: Yes Opioid Measure Date for [facility] Report: 06/10/22 Opioid Measure Time for [facility] Report: 09:05 Quality: Stroke Does the patient have a stroke diagnosis?: No Physical Exam Vital Signs: Vital Signs: Last Vital Signs Temp 97.2 F 07/10/22 08:00 Pulse 84 07/10/22 08:00 Resp 18 07/10/22 08:00 BP 168/82 H 07/10/22 08:00 Pulse Ox 99 07/10/22 08:00 O2 Del Method Room Air 07/10/22 08:00 BMI result Body Mass Index 22.3 Const: General: comfortable, no acute distress and alert Orientation/consciousness: patient oriented x3 Chest: Other: moderate ecchymosis at mastectomy site extending to left posterior; incision dr y; FELICIANO drains with dark old blood Resp: Effort & Inspection: normal respiratory effort Skin: General skin exam: no rashes or lesions noted Neuro: General: patient oriented x3 and moves all extremities DS: Data Data Completed and Pending Completed studies during hospitalization [Text1]: Procedures Resection of Left Breast, Open Approach (07/04/22) Discharge Plan Discharge Patient Disposition: Home Health Service Referrals: Severo Ferreira MD [Physician] - 1 Week Po,Maurilio Brooke MD [Primary Care Provider] - 1 Week Discharge Medications: Continued (DME) blood-glucose meter [OneTouch Ultra2 Meter] Kit See Rx Instructions .ROUTE .MEDSUPPLY Qty: 1 0RF Rx Instructions: As directed check the blood sugar once a day (DME) blood sugar diagnostic Strip See Rx Instructions .ROUTE .MEDSUPPLY Qty: 100 3RF Rx Instructions: As directed check the blood sugar once a day (DME) lancets [OneTouch SureSoft Lancing Dev] 28 gauge misc See Rx Instructions .Route Qty: 100 3RF Rx Instructions: As directed check the blood sugar once a day (DME) FreeStyle Jesse 2 Lulu Misc See Rx Instructions .ROUTE .COMPLEX Qty: 1 0RF Dose Instruction: USE DIRECTED Rx Instructions: USE DIRECTED (DME) FreeStyle Jesse 2 Sensor Kit See Rx Instructions .ROUTE .COMPLEX Qty: 6 0RF Dose Instruction: USE DIRECTED Rx Instructions: USE DIRECTED lisinopril 10 mg tablet 10 mg PO DAILY Qty: 90 3RF pravastatin 40 mg tablet 40 mg PO DAILY Qty: 90 3RF gabapentin 300 mg Capsule 300 mg PO BID Qty: 60 3RF omeprazole 40 mg capsule,delayed release(DR/EC) 40 mg PO DAILY metoprolol tartrate 50 mg tablet 50 mg PO BID Xarelto 20 mg tablet 20 mg PO DAILY Vemlidy 25 mg tablet 25 mg PO DAILY oxycodone 5 mg Tablet 5 mg PO Q6H PRN (Reason: Pain, Moderate (Pain Scale 4-6) Qty: 15 0RF Rx Instructions: Partial Fill upon patient request. diltiazem HCl 120 mg capsule,extended release 24 hr 120 mg PO DAILY Qty: 90 3RF (DME) lancets [OneTouch Delica Plus Lancet] 33 gauge misc See Rx Instructions .ROUTE DAILY Qty: 100 Rx Instructions: As directed Discharge Orders: Discharge Order (Routine); Ordered 07/10/22 Ordered By: Severo Ferreira Diet: Diabetic diet Activity on Discharge: No heavy lifting Stand Alone Forms: Patient Portal Discharge page Care Plan Goals: Return to normal activity Health Concerns: Left breast cancer Plan of Treatment: Status post left simple mastectomy Assessment: Left breast cancer
[2022-07-10] MEDS: 0.9 % Sodium Chloride Flush 3 ML SYRINGE IVFLUSH (09:08)
== END 2022-07-10 09:44 | disposition home health service (06) ==
LOC: HO.ED 07-09 02:26 → HO.EDOVER 07-09 02:35 → HO.S3 07-09 07:29
PROVIDERS: Physician Assistant; Admitting Provider Surgery; Emergency Provider Emergency Medicine; PCP Internal Medicine; Visit Provider Surgery
DX: M96.842 Postprocedural seroma of a musculoskeletal structure following a musculoskeletal system procedure (principal); H53.8 Other visual disturbances; Z90.12 Acquired absence of left breast and nipple; Z20.822 Contact with and (suspected) exposure to COVID-19; E11.9 Type 2 diabetes mellitus without complications; I10 Essential (primary) hypertension; E78.00 Pure hypercholesterolemia, unspecified; I48.19 Other persistent atrial fibrillation; Z95.0 Presence of cardiac pacemaker; Z79.01 Long term (current) use of anticoagulants; Z79.899 Other long term (current) drug therapy; Z79.02 Long term (current) use of antithrombotics/antiplatelets
CPT/HCPCS: 36415; 70496; 70498; 71250; 80053; 85025; 85610; 85730; 86850; 86900; 86901; 87635; 96365; 96374; 96375; 99221; 99285; J0131; J1642; J2270; Q9967

== ENCOUNTER → 2022-07-27 09:33 | Outpatient (BNVA) | payer MEDICARE, SELFPAY | PROVIDERS: PCP Internal Medicine; Visit Provider Surgery | DX: C50.912 Malignant neoplasm of unspecified site of left female breast (principal); Z90.12 Acquired absence of left breast and nipple | CPT/HCPCS: 99212 ==

== ENCOUNTER → 2022-08-02 08:13 | Outpatient (BNVA) | payer MEDICARE, SELFPAY | PROVIDERS: PCP Internal Medicine; Visit Provider Surgery | DX: C50.912 Malignant neoplasm of unspecified site of left female breast (principal); Z90.12 Acquired absence of left breast and nipple | CPT/HCPCS: 99212 ==

== ENCOUNTER → 2022-08-28 09:40 | Outpatient (BNVA) | payer MEDICARE, SELFPAY | PROVIDERS: PCP Internal Medicine; Visit Provider Surgery | DX: Z48.3 Aftercare following surgery for neoplasm (principal); C50.912 Malignant neoplasm of unspecified site of left female breast; Z90.12 Acquired absence of left breast and nipple | CPT/HCPCS: 99212 ==

== ENCOUNTER → 2022-08-31 10:41 | Outpatient (BNVA) | payer MEDICARE, SELFPAY | PROVIDERS: PCP Internal Medicine; Visit Provider Nurse Practitioner Family | DX: Z45.018 Encounter for adjustment and management of other part of cardiac pacemaker (principal); I48.19 Other persistent atrial fibrillation; I10 Essential (primary) hypertension; R94.31 Abnormal electrocardiogram [ECG] [EKG]; R07.89 Other chest pain; D05.12 Intraductal carcinoma in situ of left breast; Z90.12 Acquired absence of left breast and nipple | CPT/HCPCS: 93005; 93280; 99212 ==

== ENCOUNTER → 2022-10-18 12:48 | Outpatient (BNVA) | payer MEDICARE, SELFPAY | PROVIDERS: PCP Internal Medicine; Referring Provider Internal Medicine; Visit Provider Internal Medicine ==

== ENCOUNTER 2022-11-28 12:31 | Outpatient (AMB) | payer MEDICARE, SELFPAY ==
[2022-11-28 12:36] VITALS: BP 138/72; PULSE 76; O2SAT 97; BMI 20.4
--- NOTE | 2022-11-28 12:36 | A.OFFPC_ITS ---
Vital Signs 11/28/22 12:36 Height 5 ft 3 in Weight 115 lb BMI 20.4 BP 138/72 Blood Pressure Location Lt brachial Position Sitting Pulse 76 Pulse Source Pulse Oximeter Pulse Oximetry (%) 97 Oxygen Delivery Method Room Air Intake Visit Reasons: Hypertension Allergies latex [LATEX] Allergy (Intermediate, Verified 11/28/22 12:36) RASH WITH CONTACT Tobacco use date assessed: 06/01/22 Fall risk assessment: No Falls in past year Last assessed Fall Risk: 11/28/22 Dental Screening Dental Screen Date: 11/28/22 Did you have a dental visit in the last 12 months?: No Did you have a dental problem in the last 6 months where you did not have access to dental care?: No Was dental information given to patient?: No HPI Hypertension HPI Details 67-year-old female with left breast canc er October 2021 atrial fibrillation diabetes mellitus hypertension hypercholesterolemia GERD depression coming in for follow-up last seen in August 2019 patient is here for follow-up. Patient continues to follow-up with hematology oncology started neoadjuvant treatment November 2021 mastectomy was June 2022. Continues to follow-up with cardiology has the pacemaker September 2022 secondary to intermittent sick sinus syndrome and atrial fibrillation with a high degree of AV block. on chemotherapy PFSH Medical History Abnormal ultrasound of breast Essential hypertension GERD (gastroesophageal reflux disease) Hypercholesteremia Hyperglycemia On beta harley at home Pacemaker (~2008) PAF (paroxysmal atrial fibrillation) Port-A-Cath in place PUD (peptic ulcer disease) Screening for breast cancer Vertigo Surgical History History of appendectomy History of cholecystectomy History of left mastectomy (07/04/22) History of lumpectomy of left breast History of permanent cardiac pacemaker placement History of tubal ligation Family History Mother No problems noted. Father No problems noted. 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 1. Little interest or pleasure in doing things: not at all 2. Feeling down, depressed, or hopeless: not at all 3. Trouble falling or staying asleep, or sleeping too much: not at all 4. Feeling tired or having little energy: not at all 5. Poor appetite or overeating: not at all 6. Feeling bad about yourself - or that you are a failure or have let yourself or your family down: not at all 7. Trouble concentrating on things, such as reading the newspaper or watching television: not at all 8. Moving or speaking so slowly that other people could have noticed. Or the opposite - being so fidgety or restless that you have been moving around a lot more than usual: not at all 9. Thoughts that you would be better off or of hurting yourself in some way: not at all Total score: 0 Depression Screening Interpretation: Negative Source: Developed by Drs. Nahum Britton, Jl Jose and colleagues, with an educational jessica from [employer]. Thrive Questionnaire Date Thrive assessed: 03/30/22 AUDIT C Alcohol Use Questionnaire (AUDIT-C) 1. How often do you have a drink containing alcohol?: Never 3. How often do you have six or more drinks on one occasion?: Never Total Score: 0 JOSE-7 AMB Questionnaire JOSE-7 Date JOSE - 7 assessed: 03/30/22 Source: Developed by Drs. Nahum Britton, Jl Jose and colleagues, with an educational jessica from [employer]. Physical exam (Primary Care) Vital Signs: Last Vital Signs Pulse 76 11/28/22 12:36 BP 138/72 11/28/22 12:36 Pulse Ox 97 11/28/22 12:36 Oxygen Delivery Method Room Air 11/28/22 12:36 BMI result Body Mass Index 20.4 Tobacco/Smoking Status: Tobacco use Status Tobacco use date assessed 06/01/22 11/28/22 12:37 Patient Tobacco Use Status Never used Tobacco 11/28/22 12:37 e-Cigarette/Vaping Use Never Used 11/28/22 12:37 PHQ-9: PHQ-9 Score PHQ-9: Total score 0 11/28/22 12:58 Depression Screening Interpretation: Negative Thrive Assessment: Date of Thrive Assessment Date Thrive assessed 03/30/22 11/28/22 12:37 Const General: alert; No acute distress Eyes Conjunctivae: conjunctivae normal Resp Auscultation: clear to auscultation bilaterally Cardio Rate: regular rate Rhythm: regular rhythm GI Inspection: Yes normal to inspection Extrem General: Yes normal to inspection and No edema Results AMB Hemoglobin A1c AMB Hemoglobin A1c 5.7 % Last Edit by Felicia Teixeira CMA on 11/28/22 12 :58 Results Reviewed Results Reviewed: Laboratory Last Values Hgb A1c (Clinic) 5.7 % (4.0-6.0) 11/28/22 12:38 Assessment and Plan Assessment & Plan (1) S/P left mastectomy: Comment: July 2022Residual invasive ductal carcinoma with squamous features, MSBR grade 3; negative margins. - Widespread Ductal carcinoma in situ, nuclear grade 2, with necrosis; positive superior margin and very close to multiple other margins (anterior, posterior, inferior and lateral). Code(s): Z90.12 - Acquired absence of left breast and nipple Plan: Patient continue to follow-up with hematology oncology (2) Invasive ductal carcinoma of left breast: Code(s): C50.912 - Malignant neoplasm of unspecified site of left female breast Plan: Patient continue to follow-up with Hematology-Oncology (3) PAF (paroxysmal atrial fibrillation): Code(s): I48.0 - Paroxysmal atrial fibrillation Plan: Continue with Xarelto for anticoagulation (4) Type 2 diabetes mellitus with hyperglycemia: Code(s): E11.65 - Type 2 diabetes mellitus with hyperglycemia Plan: Decrease the amount of carbohydrate intake, pasta, bread, rice and potatoes are all sugar and that is aside from all the sweet stuff, remember that fruits are good but they are Sweet also. Hemoglobin A1c goal of less than 7.0 . patient patient has a very good A1c but on the other hand has anemia (5) Hypercholesteremia: Code(s): E78.00 - Pure hypercholesterolemia, unspecified Plan: Avoid fried foods, chicken skin, eggs, butter margarine, pastries and meat. Be it pork or beef they have a lot of cholesterol last blood work was done last year in February LDL goal of less than 100 patient is taking pravastatin 40 mg once a day (6) GERD (gastroesophageal reflux disease): Code(s): K21.9 - Gastro-esophageal reflux disease without esophagitis Plan: Avoid the foods that causes that usually spicy foods, tomato products, juices, coffee, soda and foods that your sensitive to. After eating do not lie down, allow 3-4 hours before in lie down. And keep the head of bed above 30 degrees to avoid the acid from going up. On omeprazole 40 mg once a day (7) Pacemaker: Onset Date: ~2008 Comment: [employer]- placed 2008, generator change 2019 Code(s): Z95.0 - Presence of cardiac pacemaker Plan: Cardiology regularly monitoring (8) Essential hypertension: Code(s): I10 - Essential (primary) hypertension Plan: Continue with blood pressure medication. Decrease salt intake and exercise patient is taking metoprolol 50 mg twice daily lisinopril 20 mg once a day and diltiazem 120 mg once a day (9) Colon cancer screening: Code(s): Z12.11 - Encounter for screening for malignant neoplasm of colon (10) Age-related osteoporosis without current pathological fracture: Code(s): M81.0 - Age-related osteoporosis without current pathological fracture Orders: Orders AMB Hemoglobin A1c Today Z13.9 - Encounter for screening, unspecified Complete Blood Count Auto Diff 3 Months - Type 2 diabetes mellitus with hyperglycemia Creatinine Urine 3 Months . - Type 2 diabetes mellitus with hyperglycemia Vitamin D 25-OH Total 3 Months . - Type 2 diabetes mellitus with hyperglycemia IRON PROFILE 3 Months . - Type 2 diabetes mellitus with hyperglycemia Prothrombin Time INR 3 Months . - Type 2 diabetes mellitus with hy perglycemia Comprehensive Met. Panel 3 Months - Type 2 diabetes mellitus with hyperglycemia Microalbumin, Random (w Creat) 3 Months . - Type 2 diabetes mellitus with hyperglycemia Free T4 (Free Thyroxine) 3 Months . - Type 2 diabetes mellitus with hyperglycemia Thyroid Stimulating Hormone 3 Months E11.65 - Type 2 diabetes mellitus with hyperglycemia Vitamin B12 and Folate 3 Months E11.65 - Type 2 diabetes mellitus with hyperglycemia Lipid Panel 3 Months E11.65 - Type 2 diabetes mellitus with hyperglycemia, E78.00 - Pure hypercholesterolemia, unspecified Ferritin 3 Months E11.65 - Type 2 diabetes mellitus with hyperglycemia Referrals Cologuard Test Z12.11 - Encounter for screening for malignant neoplasm of colon Coding Level of Care Code Est Pt Level 4 (73491) Diagnoses S/P left mastectomy Z90.12 Invasive ductal carcinoma of left breast C50.912 PAF (paroxysmal atrial fibrillation) I48.0 Type 2 diabetes mellitus with hyperglycemia E11.65 Hypercholesteremia E78.00 GERD (gastroesophageal reflux disease) K21.9 Pacemaker Z95.0 Essential hypertension I10 Colon cancer screening Z12.11 Age-related osteoporosis without current pathological fracture M81.0 Additional Codes PHQ-9 - 58833 - PHQ-9 Billing: ([id number])
== END 2022-11-28 13:21 | disposition home or self-care (01) ==
PROVIDERS: PCP Internal Medicine; Visit Provider Internal Medicine
DX: E11.65 Type 2 diabetes mellitus with hyperglycemia (principal); Z90.12 Acquired absence of left breast and nipple; C50.912 Malignant neoplasm of unspecified site of left female breast; K21.9 Gastro-esophageal reflux disease without esophagitis; I10 Essential (primary) hypertension; I48.0 Paroxysmal atrial fibrillation; E78.00 Pure hypercholesterolemia, unspecified; Z95.0 Presence of cardiac pacemaker; M81.0 Age-related osteoporosis without current pathological fracture
CPT/HCPCS: 83036; 99214

== ENCOUNTER 2022-12-19 11:39 | Outpatient (REF) | payer MEDICARE, SELFPAY ==
[2022-12-20 08:34] LABS: HBS Num1 61.22 mIU/mL (0-7.99); HBsAGNum1 0.33 S/CO (0.00-0.99); Hepatitis B Surface Antigen Negative (Negative); ~Hepatitis B Surface Antibody REACTIVE (Nonreactive)
[2022-12-20 09:50] LABS: HBc Num3 1.24 S/CO; Hepatitis B Core Antibody Reactive (Nonreactive)
[2022-12-21 21:22] LABS: Hepatitis BE Antigen NON-REACTIVE (NON-REACTIVE)
[2022-12-21 23:23] LABS: Hepatitis BE Antibody NON-REACTIVE (NON-REACTIVE)
[2022-12-22 12:03] LABS: Hepatitis B Viral DNA Qn - cp NOT DETECTED Log IU/mL (NOT DETECTED); Hepatitis B Viral DNA Qn-IU/mL NOT DETECTED (NOT DETECTED)
== END 2022-12-19 11:40 | disposition home or self-care (01) ==
LOC: HO.LAB 11:39
PROVIDERS: PCP Internal Medicine; Visit Provider Internal Medicine
DX: R76.8 Other specified abnormal immunological findings in serum (principal)
CPT/HCPCS: 36415; 86704; 86706; 86707; 87340; 87350; 87517

== ENCOUNTER 2023-01-07 12:49 | Outpatient (AMB) | payer MEDICARE, SELFPAY ==
--- NOTE | 2023-01-07 13:02 | A.OFFVIS_ITS ---
Intake Vital Signs 01/07/23 13:11 Height 5 ft 3 in Weight 116 lb 13.52 oz BMI 20.7 BP 157/74 H Blood Pressure Location Lt brachial Pulse 80 Intake Visit Reasons: f/u Hep B Intake Note: Lupe presents in the office as a follow up Hep B. CC: She states that she is tired on and off because of Radiation. She states she is feeling better than her last visit. Allergies latex [LATEX] Allergy (Intermediate, Verified 01/07/23 13:12) RASH WITH CONTACT HPI HPI Comments History of Present Illness Details This is a 66-year-old female with recent diagnosis of left breast infiltrating ductal carcinoma (triple negative), s/p chemotherapy, currently on XRT and immunotherapy who is following up for HBV reactivation prophylaxis. Pt was last seen in 2021 and then lost to follow up. 01/02/2022: on neoadjuvant treatment with pembrolizumab, carboplatin and Taxol with plan to start Adriamycin. She is here today to establish care for results hepatitis-B. Patient herself currently does not have any gastrointestinal complaints to include abdominal pain, nausea, vomiting, diarrhea. She does note some fogginess that has been present since starting her chemotherapy. [place] where she contracted hepatitis-B. Denies any new rashes, increased abdominal distension, lower extremity edema. Had never been told about liver issues in the past. Labs reviewed and show ALT 36 with AST 21. Total protein 6.2. Hep B surface antigen negative, hep B surface antibody positive, hep B total core positive. No recent abdominal imaging in the system. 01/07/23: At moderate risk of re-activation however at that time pt had requested to be st arted on anti-viral tx instead of going with on-demand therapy approach. Unfortunately the tenofovir was not covered by her insurance so pt never ended up taking it. Most recent labs show no evidence of reactivation with normal LFTs and negative HBsAg and DNA levels. An US Abd was also recommended last year which the pt did not remember to schedule. Pt today also reports vague LLQ pain ongoing x week which is not associated with fevers, chills, changes in bowel habits or appetite. No weight loss in fact reports gaining weight since completion of chemotherapy. Also recently finished radiation therapy and now on Pembrolizumab alone. On review of chart pt was also noted to have a positive cologuard from last month. Has never had screening for CRC in the past. No fam hx of CRC in first degree relatives. [facility] Medical History Hyperglycemia Port-A-Cath in place On beta harley at home Abnormal ultrasound of breast Screening for breast cancer PUD (peptic ulcer disease) Essential hypertension PAF (paroxysmal atrial fibrillation) Vertigo Pacemaker (~2008) GERD (gastroesophageal reflux disease) Hypercholesteremia Surgical History History of left mastectomy (07/04/22) History of lumpectomy of left breast History of appendectomy History of permanent cardiac pacemaker placement History of cholecystectomy History of tubal ligation Family History Mother No problems noted. Father No problems noted. 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 Cognitive needs: No Hearing needs: No Vision needs: Yes Physical Exam Vital Signs: Last Vital Signs Pulse 80 01/07/23 13:11 BP 157/74 H 01/07/23 13:11 BMI result Body Mass Index 20.7 Gen appear: NAD HEENT: nonicteric, no cervical lymphadenopathy Chest: CTA CVS: Regular S1/S2 Abd: soft, LLQ tenderness, nondistended, bowel sounds + Ext: no peripheral edema Neuro: A/Ox3, noted to move all extremities spontaneously Psych: interacting appropriately Assessment & Plan Assessment & Plan (1) Hepatitis B core antibody positive: Code(s): R76.8 - Other specified abnormal immunological findings in serum Plan: Patient is hep B surface antigen negative, hep B core antibody positive and B surface antibody positive. She is at moderate risk of reactivation with chemotherapy for solid organ tumors. Neoadjuvant chemotherapy was completed Apr 2022 per documentation. Currently on pembrolizumab only and based on available data ICI's have minimal risk of HBV reactivation with HBsAg negative pts. [email or web address] She therefore does not need any further HBV reactivation monitoring as she is >6 months out from last chemo. (2) Left lower quadrant abdominal pain of unknown etiology: Code(s): R10.32 - Left lower quadrant pain (3) Positive colorectal cancer screening using Cologuard test: Code(s): R19.5 - Other fecal abnormalities Plan She is due for follow up colonoscopy after positive cologuard last month. Given report of vague abdominal pain in LLQ x 1 week will also obtain dedicated imaging to eval for diverticulitis, colitis, malignancy. Mild normocytic anemia noted on most recent labs. Plan: - CT Abd pel with contrast ordered - [place] to be booked within 6-8 weeks. Split PEG prep instructions reviewed. Pt was offered to be taken to schedulers to book this today however as she is unsure of her upcoming appts date/time she requested to be called instead. Msg sent. Follow up after procedure. Orders: Orders CT abdomen pelvis w IV con Today R10.32 - Left lower quadrant pain Medications: New peg 3350-electrolytes 236-22.74-6.74 -5.86 gram (Golytely) as per split prep instructions, until fecal effluent is clear 240 mL PO Q10M 4,000 mL 0RF colonoscopy Coding Level of Care Code Est Pt Level 4 (65379) Diagnoses Hepatitis B core antibody positive R76.8 Left lower quadrant abdominal pain of unknown etiology R10.32 Positive colorectal cancer screening using Cologuard test R19.5
[2023-01-07 13:11] VITALS: BP 157/74; PULSE 80; BMI 20.7
== END 2023-01-07 13:36 | disposition home or self-care (01) ==
PROVIDERS: PCP Internal Medicine; Visit Provider Internal Medicine
DX: R76.8 Other specified abnormal immunological findings in serum (principal); R10.32 Left lower quadrant pain; R19.5 Other fecal abnormalities
CPT/HCPCS: 99214

== ENCOUNTER → 2023-01-07 12:49 | Outpatient (BNVA) | payer MEDICARE, SELFPAY | PROVIDERS: PCP Internal Medicine; Visit Provider Internal Medicine | DX: R76.8 Other specified abnormal immunological findings in serum (principal); R10.32 Left lower quadrant pain; R19.5 Other fecal abnormalities | CPT/HCPCS: 99212 ==

== ENCOUNTER 2023-01-15 13:36 | Outpatient (AMB) | payer MEDICARE, SELFPAY ==
--- NOTE | 2023-01-15 13:45 | A.OFFVIS_ITS ---
Intake Vital Signs 01/15/23 13:49 Height 5 ft 3 in Weight 118 lb BMI 20.9 Intake Visit Reasons: 3m f/u breast exam Intake Note: This patient presents for a three month follow-up breast examination assessment. Patient c/o; reports numbness surgical area. 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 Accompanied by: Self / Same As Patient Allergies latex [LATEX] Allergy (Intermediate, Verified 01/15/23 13:50) RASH WITH CONTACT Medication List - Last Reconciled 01/15/23 by Severo Ferreira MD blood sugar diagnostic As directed check the blood sugar once a day blood-glucose meter ([employer] Ultra2 Meter kit) As directed check the blood sugar once a day diltiazem HCl ER 120 mg PO DAILY flash glucose scanning reader ([employer] Jesse 2 [place]) USE DIRECTED flash glucose sensor ([employer] Jesse 2 Sensor kit) USE DIRECTED gabapentin 300 mg PO BID lancets ([employer] SureSoft Lancing Devices) As directed check the blood sugar once a day lancets ([employer] Delica Plus Lancet) As directed lisinopril 20 mg PO DAILY 30 days metoprolol tartrate 50 mg PO BID omeprazole 40 mg PO DAILY ondansetron 4 mg PO Q8H PRN peg 3350-electrolytes 236-22.74-6.74 -5.86 gram (Golytely) 240 mL PO Q10M pravastatin 40 mg PO DAILY rivaroxaban (Xarelto) 20 mg PO DAILY HPI HPI Comments History of Present Illness Details 66-year-old female patient with a left b reast T2 N1 MX 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 She presented as a palpable mass 1st noted in July 2021. She denies a previous history of breast problems or breast surgery. with 1 child who . Mammogram revealed a 2.5 cm spiculated mass in the upper outer quadrant associated with lymphadenopathy in the left axilla felt to be high suspicion for malignancy. She underwent ultrasound- guided core biopsy at the [facility] on 11/07/2021 both the breast mass and axillary lymphadenopathy. She was evaluated by Dr. Mcgill and subsequently started on neoadjuvant treatment which included pembrolizumab along with weekly carboplatin and Taxol on 12/04/21. A repeat mammogram on 05/10/2022 revealed marked reduction in the size of the breast lesion left side. On 06/06/2022 she underwent left breast lumpectomy with left axillary node dissection. Pathology revealed evidence of DCIS at multiple margins at both the initial excision specimen as well as the wider excision.? Findings are suggestive of diffuse DCIS which may be multifocal disease. She subsequently underwent a left simple mastectomy on 07/04/2022. She restarted chemotherapy on 08/20/2022. She was presented at breast cancer conference and recommendation made to proceed to radiation therapy to the chest wall and axilla. A pacemaker in the left chest was transferred out of the radiation field prior to obtaining radiation therapy. She tolerated the therapy well. She notes some numbness in the skin around the incision. She denies any new breast symptoms. [facility] Medical History Hyperglycemia Port-A-Cath in place On beta harley at home Abnormal ultrasound of breast Screening for breast cancer PUD (peptic ulcer disease) Essential hypertension PAF (paroxysmal atrial fibrillation) Vertigo Pacemaker (~2008) GERD (gastroesophageal reflux disease) Hypercholesteremia Surgical History History of left mastectomy (07/04/22) History of lumpectomy of left breast History of appendectomy History of permanent cardiac pacemaker placement History of cholecystectomy History of tubal ligation Family History Mother No problems noted. Father No problems noted. 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 Cognitive needs: No Hearing needs: No Vision needs: Yes Review of Systems Const All systems reviewed & are unremarkable except as noted in HPI and below Denies chills, Denies fever(s), Denies headache(s), Denies poor appetite and Denies weakness ENT Denies headache(s) Card Denies chest pain, Denies irregular heart rhythm, Denies palpitations and Denies dyspnea Resp Denies cough, Denies excessive phlegm production and Denies dyspnea GI Denies abdominal pain, Denies bloating, Denies change in bowel habits, Denies constipation, Denies heartburn, Denies diarrhea, Denies nausea and Denies vomiting Denies urinary frequency Musc Denies back pain, Denies muscle weakness and Denies numbness Skin/Breast Denies changing lesions and Denies unusual bruising Neuro Denies headache(s), Denies numbness, Denies paresthesias and Denies weakness Psych Denies anxiety and Denies depression Endo Denies palpitations Dean/Lymph Denies lymphadenopathy Physical Exam Vital Signs: BMI result Body Mass Index 20.9 Const General: no acute distress Chest Other: Well-healed left mastectomy incision. Flaps are flat with good healing, no residual fluid appreciated. Axilla is soft with no palpable nodules. Radiation skin change noted mainly in the lateral portion of the incision. Right breast reveals no skin change, nipple discharge, nipple retraction, palpable mass, or enlarged lymph nodes. Resp Effort & Inspection: normal respiratory effort, no audible wheezes, no cough and no respiratory distress Skin Other: Warm, dry, no rash Extrem General: Yes normal to inspection and No edema Assessment & Plan Assessment & Plan (1) S/P left mastectomy: Comment: July 2022Residual invasive ductal carcinoma with squamous features, MSBR grade 3; negative margins. - Widespread Ductal carcinoma in situ, nuclear grade 2, with necrosis; positive superior margin and very close to multiple other margins (anterior, posterior, inferior and lateral). Code(s): Z90.12 - Acquired absence of left breast and nipple (2) Ductal carcinoma in situ (DCIS) of left breast: Code(s): D05.12 - Intraductal carcinoma in situ of left breast Plan 67-year-old female patient with invasive ductal carcinoma and DCIS, triple negative, status post neoadjuvant treatment followed by lumpectomy followed by mastectomy for positive margins. She underwent chest wall radiation and continues with adjuvant chemotherapy. She is tolerating this well and generally feels much improved. She is now due for her right mammogram (last right mammogram in October 2021). This has been ordered today. She will follow-up in 6 months but is welcome to call sooner for any new concerns. Orders: Orders MM screening mammo unilat RT Today D05.12 - Intraductal carcinoma in situ of left breast, Z90.12 - Acquired absence of left breast and nipple Coding Level of Care Code Est Pt Level 3 (37955) Diagnoses S/P left mastectomy Z90.12 Ductal carcinoma in situ (DCIS) of left breast D05.12
[2023-01-15 13:49] VITALS: BMI 20.9
== END 2023-01-15 14:00 | disposition home or self-care (01) ==
PROVIDERS: PCP Internal Medicine; Visit Provider Surgery
DX: D05.12 Intraductal carcinoma in situ of left breast (principal); Z90.12 Acquired absence of left breast and nipple
CPT/HCPCS: 99213

== ENCOUNTER → 2023-01-15 13:36 | Outpatient (BNVA) | payer MEDICARE, SELFPAY | PROVIDERS: PCP Internal Medicine; Visit Provider Surgery | DX: D05.12 Intraductal carcinoma in situ of left breast (principal); Z90.12 Acquired absence of left breast and nipple | CPT/HCPCS: 99212 ==

== ENCOUNTER 2023-02-13 09:05 | Outpatient (REF) | payer MEDICARE, SELFPAY ==
--- NOTE | ~2023-02-13 | CT_ITS ---
EXAMINATION: CT ABDOMEN AND PELVIS WITH CONTRAST CLINICAL INFORMATION: Left lower quadrant abdominal pain. COMPARISON: CT abdomen and pelvis 03/03/2020. TECHNIQUE: Multidetector volumetric images were obtained from the superior aspect of the liver through the pubic symphysis following administration 85 mL of Omnipaque 350 intravenous contrast. Sagittal and coronal reformatted images were obtained on the technologist's workstation. Oral contrast: No This CT examination was performed using dose optimization techniques as appropriate, variously including the following: *Automated exposure control *Adjustment of mA and/or kV according to patient size (this includes techniques or standardized protocols for targeted exams where dose is matched to indication/reason for exam; i.e. extremities or head) *Use of iterative reconstruction technique DLP: 214 mGy-cm FINDINGS: LUNG BASES: The visualized lung bases are unremarkable. LIVER, GALLBLADDER, AND BILIARY TREE: The liver is normal in size, shape, and attenuation. No focal hepatic lesion or biliary ductal dilatation is present. Cholecystectomy. PANCREAS: No discrete mass or ductal dilatation. SPLEEN: Unremarkable. ADRENAL GLANDS: No adrenal mass. KIDNEYS AND URETERS: The kidneys are normal in size, shape, and attenuation. No hydronephrosis, hydroureter, or calculi seen. No perinephric stranding. Simple cyst in the upper right kidney. No follow-up imaging is recommended. BLADDER: Unremarkable. GASTROINTESTINAL TRACT: Small bowel is normal in caliber. Mild colonic diverticulosis. No evidence of acute diverticulitis or colitis to explain left lower quadrant abdominal pain. Appendectomy. ABDOMINAL WALL: No significant hernia is appreciated. LYMPH NODES: No adenopathy. VASCULAR: No aortic aneurysm. Mild to moderate aortoiliac atherosclerosis. PELVIC VISCERA: Left gonadal vein reflux. OSSEOUS STRUCTURES: Mild degenerative changes in the spine. CT/CT abdomen pelvis w IV con IMPRESSION: No acute inflammatory changes in the abdomen/pelvis to correlate with left lower quadrant abdominal pain. Mild colonic diverticulosis without evidence of diverticulitis. Left gonadal vein reflux. Fleischner guidelines were followed.
[2023-02-13] MEDS: iohexoL 350 MG/ML 100 ML INFUS..BTL 85 ML IV (10:59)
== END 2023-02-13 09:06 | disposition home or self-care (01) ==
LOC: HO.CT 09:05
PROVIDERS: PCP Internal Medicine; Visit Provider Internal Medicine
DX: R10.32 Left lower quadrant pain (principal)
CPT/HCPCS: 74177; Q9967

== ENCOUNTER 2023-02-25 13:07 | Outpatient (AMB) | payer MEDICARE, SELFPAY ==
[2023-02-25 13:22] VITALS: BP 112/72; PULSE 67; BMI 21.3
--- NOTE | 2023-02-25 13:22 | A.OFFVIS_ITS ---
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: No Accompanied by: Self / Same As Patient Allergies latex [LATEX] Allergy (Intermediate, Verified 02/25/23 13:23) RASH WITH CONTACT Medication List - Last Reconciled 02/25/23 by David Ellis MD blood sugar diagnostic As directed check the blood sugar once a day blood-glucose meter ([employer] Ultra2 Meter kit) As directed check the blood sugar once a day diltiazem HCl ER 120 mg PO DAILY flash glucose scanning reader ([employer].comStyle Jesse 2 [place]) USE DIRECTED flash glucose sensor (FreeStyle Jesse 2 Sensor kit) USE DIRECTED gabapentin 300 mg PO BID lancets ([employer] SureSoft Lancing Devices) As directed check the blood sugar once a day lancets ([employer] Delica Plus Lancet) As directed lisinopril 20 mg PO DAILY 30 days metoprolol tartrate 50 mg PO BID omeprazole 40 mg PO DAILY peg 3350-electrolytes 236-22.74-6.74 -5.86 gram (Golytely) 240 mL PO Q10M pravastatin 40 mg PO DAILY rivaroxaban (Xarelto) 20 mg PO DAILY HPI HPI Comments History of Present Illness Details Lupe returns for follow-up. She is under treatment for breast cancer. She had a left-sided pacemaker that was in the way of radiation and after discussion with Radiation Oncology, she underwent a leadless pacemaker. The RV and RA leads were capped. The old dual-chamber pacemaker generator was expl anted. Overall, she is doing fine. No new symptoms. No cardiac concerns. [facility] Medical History Hyperglycemia Port-A-Cath in place On beta harley at home Abnormal ultrasound of breast Screening for breast cancer PUD (peptic ulcer disease) Essential hypertension PAF (paroxysmal atrial fibrillation) Vertigo Pacemaker (~2008) GERD (gastroesophageal reflux disease) Hypercholesteremia Surgical History History of left mastectomy (07/04/22) History of lumpectomy of left breast History of appendectomy History of permanent cardiac pacemaker placement History of cholecystectomy History of tubal ligation Family History Mother No problems noted. Father No problems noted. 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 Cognitive needs: No Hearing needs: No Vision needs: Yes Review of Systems Const All systems reviewed & are unremarkable except as noted in HPI and below Reports as per HPI and Reports no additional complaints Eyes Reports as per HPI and Denies no additional complaints ENT Denies no additional complaints and Reports as per HPI Card Reports as per HPI, Reports no additional complaints, Denies acrocyanosis, Denies chest pain, Denies leg edema, Denies lightheadedness, Denies palpitations and Denies dyspnea Resp Reports as per HPI, Denies no additional complaints and Denies dyspnea GI Reports as per HPI and Denies no additional complaints Reports as per HPI Musc Reports no additional complaints and Reports as per HPI Skin/Breast Reports system reviewed and no additional complaints, except as documented Neuro Reports no additional complaints and Reports as per HPI Psych Reports no additional complaints and Reports as per HPI Endo Reports no additional complaints, Reports as per HPI and Denies palpitations Dean/Lymph Reports no additional complaints and Reports as per HPI Aller/Immun Reports no additional complaints and Reports as per HPI Physical Exam Vital Signs: Last Vital Signs Pulse 67 02/25/23 13:22 BP 112/72 02/25/23 13:22 BMI result Body Mass Index 21.3 Const General: comfortable and no acute distress Orientation/consciousness: patient oriented x3 HEENT Other: Unremarkable Head: Yes normal to inspection Neck Neck: Yes normal visual inspection Chest Chest palpation & inspection: normal inspection of the chest Resp Auscultation: clear to auscultation bilaterally Cardio Palpation: normal PMI Heart sounds: S1 normal heart sound present, S2 normal heart sound present, no gallops, no murmurs and no rubs GI Palpation (GI): Soft to palpation Back/Spine/Pelvis Other: unremarkable Skin General skin exam: no rashes or lesions noted Neuro General: patient oriented x3 Extrem General: Yes normal to inspection Psych Mental Status: mental status grossly normal Assessment & Plan Assessment & Plan (1) Persistent atrial fibrillation: Code(s): I48.19 - Other persistent atrial fibrillation Plan: She does not have any symptoms from this. Continue diltiazem and metoprolol. She is also on anticoagulation. (2) Abnormal EKG: Code(s): R94.31 - Abnormal electrocardiogram [ECG] [EKG] Plan: T inversions have been seen in prior EKGs. No documented CAD. Clinically, she has got absolutely no symptoms. In the future, consider stress testing but she has ongoing issues with breast cancer and not chemo extra. Hence may hold. (3) Normally functioning cardiac pacemaker present: Code(s): Z95.0 - Presence of cardiac pacemaker Plan: Will need to enroll in remote monitoring. (4) Essential hypertension: Code(s): I10 - Essential (primary) hypertension Plan: Lot of blood pressures are on the higher side. We can increase the diltiazem dosing. That should hopefully help. Her creatinine has had some elevations in the past and hence reluctant to increase lisinopril. (5) Other and unspecified hyperlipidemia: Code(s): E78.5 - Hyperlipidemia, unspecified Plan: On statins. Last LDL cholesterol levels are 86 and 95 mg/dL. Medications: New diltiazem HCl ER 240 mg PO QAM 90 caps 3RF Discontinued diltiazem HCl ER Discontinued Reason: Doctor's Order 120 mg PO DAILY 90 caps 3RF M25.511 - Pain in right shoulder Coding Level of Care Code Est Pt Level 4 (87418) Diagnoses Persistent atrial fibrillation I48.19 Abnormal EKG R94.31 Normally functioning cardiac pacemaker present Z95.0 Essential hypertension I10 Other and unspecified hyperlipidemia E78.5
== END 2023-02-25 13:38 | disposition home or self-care (01) ==
PROVIDERS: PCP Internal Medicine; Visit Provider Internal Medicine
DX: I48.19 Other persistent atrial fibrillation (principal); R94.31 Abnormal electrocardiogram [ECG] [EKG]; Z95.0 Presence of cardiac pacemaker; I10 Essential (primary) hypertension; E78.5 Hyperlipidemia, unspecified
CPT/HCPCS: 99214

== ENCOUNTER → 2023-02-25 13:07 | Outpatient (BNVA) | payer MEDICARE, SELFPAY | PROVIDERS: PCP Internal Medicine; Visit Provider Internal Medicine | DX: I48.19 Other persistent atrial fibrillation (principal); I10 Essential (primary) hypertension; R94.31 Abnormal electrocardiogram [ECG] [EKG]; E78.5 Hyperlipidemia, unspecified; Z95.0 Presence of cardiac pacemaker | CPT/HCPCS: 99212 ==

== ENCOUNTER → 2023-03-21 23:59 | Outpatient (BNV) | payer MEDICARE, SELFPAY ==
--- NOTE | 2023-03-26 19:29 | A.OFFVIS_ITS ---
Intake Intake Visit Reasons: Remote Device Check- Medtr[employer] Allergies latex [LATEX] Allergy (Intermediate, Verified 02/25/23 13:23) RASH WITH CONTACT [facility] Medical History Hyperglycemia Port-A-Cath in place On beta harley at home Abnormal ultrasound of breast Screening for breast cancer PUD (peptic ulcer disease) Essential hypertension PAF (paroxysmal atrial fibrillation) Vertigo Pacemaker (~2008) GERD (gastroesophageal reflux disease) Hypercholesteremia Surgical History History of left mastectomy (07/04/22) History of lumpectomy of left breast History of appendectomy History of permanent cardiac pacemaker placement History of cholecystectomy History of tubal ligation Family History Mother No problems noted. Father No problems noted. 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 Overall normal device function. [id number] Cardiac Device Interrogation, pacemaker Procedure code (CPT) selection complete Assessment & Plan Assessment & Plan (1) PAF (paroxysmal atrial fibrillation): Code(s): I48.0 - Paroxysmal atrial fibrillation (2) Bradycardia: Code(s): R00.1 - Bradycardia, unspecified Plan x Coding Level of Care Code Procedure Only Diagnoses PAF (paroxysmal atrial fibrillation) I48.0 Bradycardia R00.1 CPT Codes Cardiac Device Check - Cardiac Device 12: [id number] Cardiac Device Interrogation, pacemaker ([id number])
== END ==
PROVIDERS: PCP Internal Medicine; Visit Provider Internal Medicine
DX: I48.0 Paroxysmal atrial fibrillation (principal); Z95.0 Presence of cardiac pacemaker
CPT/HCPCS: 93294

== ENCOUNTER → 2023-04-10 11:30 | Outpatient (BNV) | payer MEDICARE, SELFPAY | PROVIDERS: PCP Internal Medicine; Visit Provider Radiology Diagnostic Radiology | DX: Z12.31 Encounter for screening mammogram for malignant neoplasm of breast (principal) | CPT/HCPCS: 77063; 77067 ==

== ENCOUNTER 2023-04-10 11:39 | Outpatient (REF) | payer MEDICARE, SELFPAY ==
--- NOTE | ~2023-04-10 | MM_ITS ---
EXAMINATION: MM SCREENING DIGITAL BREAST TOMOSYNTHESIS, RIGHT CLINICAL INFORMATION: Screening. Asymptomatic. The patient is status post left mastectomy. COMPARISON: Mammography: This study is compared with prior exams dating back to 2021. TECHNIQUE: Digital breast tomosynthesis is performed in both the craniocaudal and mediolateral oblique views along with computer-aided detection (CAD). Synthesized 2D images are generated from the tomosynthesis. FINDINGS: There are scattered areas of fibroglandular density (ACR BI-RADS breast composition Category b). There are no significant masses, abnormal calcifications, or other abnormalities. MM/MM tomosynthesis screening RT IMPRESSION: No mammographic evidence of malignancy. ASSESSMENT: BI-RADS BI-RADS 1 - Negative RECOMMENDATION: Routine annual mammography screening. 1 year F/U This examination should not preclude the clinical evaluation of a suspicious palpable abnormality. This patient's information was entered into a reminder system with a target due date for their next mammogram.
== END 2023-04-10 11:40 | disposition home or self-care (01) ==
LOC: HO.MAMMO 11:39
PROVIDERS: PCP Internal Medicine; Visit Provider Surgery
DX: Z12.31 Encounter for screening mammogram for malignant neoplasm of breast (principal)
CPT/HCPCS: 77063; 77067

== ENCOUNTER 2023-04-16 19:14 | Emergency (ER) | payer MEDICARE, SELFPAY ==
[2023-04-16 19:36] VITALS: BP 144/72; PULSE 67; RESP 17; TEMP 36.7; O2SAT 99; BMI 21.4
--- NOTE | 2023-04-16 19:39 | ED_ITS ---
HPI - General Adult General Chief complaint: Urogenital-Female Stated complaint: frequent urination w/ blood Time Seen by Provider: 04/16/23 20:46 Source: patient Mode of arrival: ambulatory Limitations: no limitations History of Present Illness HPI narrative: Patient comes in the emergency room complaining of hematuria and dysuria for 3 days. Patient states that she has frequency, has a urinate every 10 minutes. Zepeda when she urinates and she became concerned about the blood today. Patient states that about 4-5 years ago she had a urinary tract infection. Patient denies fever chills, no nausea vomiting diarrhea, complaining of suprapubic pressure. Related Data Home Medications Medication Instructions Recorded Confirmed lancets 33 gauge (SCM-GLTouch DelPurple Blue Bo #100 ea 01/02/22 04/10/23 Plus Lancet) omeprazole 40 mg capsule,delayed 40 mg PO DAILY 07/04/22 04/10/23 release Previous Rx's Medication Instructions Recorded blood sugar diagnostic #100 ea 02/23/21 blood-glucose meter (OneTouch #1 ea 02/23/21 Ultra2 Meter kit) lancets 28 gauge (OneTouch #100 ea 02/23/21 Sure[employer]udd[employer]k Lancing Devices) gabapentin 300 mg capsule 300 mg PO BID #60 caps 01/29/22 flash glucose scanning reader #1 ea 03/19/22 (FreeStyle Jesse 2 [place]) flash glucose sensor (FreeStyle #6 ea 05/03/22 Jesse 2 Sensor kit) pravastatin 40 mg tablet 40 mg PO DAILY #90 tabs 12/17/22 lisinopril 20 mg tablet 20 mg PO DAILY 30 days #30 tabs 01/06/23 peg 3350-electrolytes 236 240 ml PO Q10M colonoscopy #4,000 01/07/23 gram-22.74 gram-6.74 gram-5.86 mL gram solution (Golytely) rivaroxaban 20 mg tablet (Xarelto) 20 mg PO DAILY #90 tabs 02/15/23 diltiazem HCl 240 mg capsule,24 240 mg PO QAM #90 caps 02/25/23 hr,extended release metoprolol tartrate 50 mg tablet 50 mg PO BID #180 tabs 03/26/23 cefuroxime axetil 500 mg tablet 500 mg PO BID #14 tabs 04/16/23 phenazopyridine 100 mg tablet 100 mg PO TID PRN pain 6 doses #6 04/16/23 tabs Allergies Allergy/AdvReac Type Severity Reaction Status Date / Time latex [LATEX] Allergy Intermediate RASH WITH Verified 04/10/23 11:16 CONTACT Review of Systems 2 Review of Systems: Constitutional : No Weight loss, No Fever, No Chills, No Night Sweats, No Fatigue, No Malaise ENT/Mouth : No Hearing loss, No Ear Pain, No Nasal Congestion, No Sinus Pain, No Hoarseness, No sore throat, No Rhinorrhea, No Swallowing Difficulty Eyes: No Eye Pain, No Swelling, No Redness, No Foreign Body, No Discharge, No Vision Changes Cardiovascular : No Chest Pain, No SOB, No Dyspnea on Exertion, No Orthopnea, No Edema, No Palpitations Respiratory : No Cough, No Sputum, No Wheezing, No Smoke Exposure, No Dyspnea Gastrointestinal : No Nausea, No Vomiting, No Diarrhea, No Constipation, No abdominal Pain, No Hematochezia, No Melena Genitourinary : Complaining of Dysuria, Urinary Frequency and Hematuria. Denies incontinence, urgency, flank pain Musculoskeletal : No joint pain, No Myalgias, No Joint Swelling Skin : No Skin Lesions, No rash Neuro : No Weakness, No Numbness, No Paresthesias, No Loss of Consciousness, No Dizziness, No Headache Psych : No Anxiety/Panic, No Depression, No SI/HI/AH/VH, No Social Issues, Heme/Lymph: No Bruising, No Bleeding,No Lymphadenopathy Endocrine : No Polyuria, No Polydipsia, No Temperature Intolerance PMFSH Past Medical History Medical History Hyperglycemia Port-A-Cath in place On beta harley at home Abnormal ultrasound of breast Screening for breast cancer PUD (peptic ulcer disease) Essential hypertension PAF (paroxysmal atrial fibrillation) Vertigo Pacemaker (~2008) GERD (gastroesophageal reflux disease) Hypercholesteremia Surgical History History of left mastectomy (07/04/22) History of lumpectomy of left breast History of appendectomy History of permanent cardiac pacemaker placement History of cholecystectomy History of tubal ligation Family History Family History Mother No problems noted. Father No problems noted. 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 Oriented X3. No acute distress. Eyes: Pupils equal, round and reactive to light. ENT: Pharynx normal. Neck: Normal inspection. Neck supple. No lymph nodes noted. No crepitus CVS: Normal heart rate and rhythm. Pulses normal. Normal S1 and S2 Respiratory: No respiratory distress. Breath sounds normal. No Wheezing. No rales Abdomen: Soft and nontender. No rigidity. No distention. Skin: Skin warm and dry. Normal skin color. Normal skin turgor. Extremities: No lower extremity edema. No Lacerations. No Rash Neuro: Oriented X 3. No motor deficit. No sensory deficit. Moving all extremities. No slurred speech. CN 2 through 12 grossly intact Psych: calm, cooperative, normal affect Course Course Course Narrative: RME- 67-year-old female with past medical history significant for breast cancer followed by Dr. Mcgill, not currently undergoing treatment, AFib on Xarelto presents for evaluation of urinary frequency and burning with urination. Plan for labs, UA Medical Decision Making Medical Decision Making [facility] Narrative: My interpretation of labs: White blood cell count 13. No fever chills, no hypotension, sepsis not suspected, urine positive for UTI No flank pain on physical exam, pyelonephritis not suspected. -I discussed the labs with the patient, patient has a UTI, given cefuroxime and phenazopyridine in the ED Differential Diagnosis Differential Diagnoses: The differential diagnosis associated with the presentation includes (UTI, pyelonephritis) Lab Data MDM Lab Attestation statement: I reviewed the patient's lab results. 04/16/23 20:09 04/16/23 20:09 Labs: Lab Results 04/16/23 04/16/23 Range/Units 20:08 20:09 WBC 12.9 H (4.8-10.8) X10*3/uL RBC 4.04 L (4.20-5.50) X10*6/uL Hgb 12.1 (12.0-16.0) g/dl Hct 36.2 L (37.0-47.0) % MCV 89.6 (80.0-98.0) fL MCH 30.0 (27.0-33.0) pg MCHC 33.4 (31.0-35.0) g/dl RDW 12.8 (11.0-16.0) % Plt Count 234 D (160-400) X10*3/uL MPV 8.8 L (9.4-12.3) fL Immature Gran % (Auto) 0.5 H (0.0-0.4) % Neut % (Auto) 82.0 H (45-73) % Lymph % (Auto) 9.1 L (20-40) % [place] % (Auto) 7.1 (2-11) % Eos % (Auto) 0.9 (0-4) % Baso % (Auto) 0.4 (0-2) % Lymph # (Auto) 1.2 (1.2-4.9) X10*3/uL [place] # (Auto) 0.9 (0.1-1.2) X10*3/uL Eos # (Auto) 0.1 (0.0-0.4) X10*3/uL Baso # (Auto) 0.1 (0.0-0.2) X10*3/uL Abs Immat Gran (auto) 0.06 H (0.00-0.03) X10*3/uL Absolute Neuts (auto) 10.6 H (2.0-8.3) x10*3/uL Absolute Nucleated RBC 0.000 (0.0-0.012) X10*3/uL Nucleated RBC % (auto) 0.0 (0.0-0.2) /100WBC Smear Tech's Comments VERIFIED PT 21.7 H (11.1-13.3) SEC INR 1.8 H (0.9-1.1) Sodium 136 (135-145) mmol/L Potassium 4.2 (3.3-5.1) mmol/L Chloride 105 (96-108) mmol/L Carbon Dioxide 21 L (22-29) mmol/L Anion Gap 14 (12-20) BUN 18 H (9-16) mg/dL Creatinine 1.00 (0.5-1.4) mg/dL Estim Creat Clear Calc 44.5 Estimated GFR 55 Random Glucose 112 (60-115) mg/dL Calcium 9.7 (8.4-10.2) mg/dL Urine Color Yellow Urine Appearance Clear Urine pH 7.0 (5.0-9.0) Ur Specific [place] <= 1.005 (1.005-1.025) Urine Protein Trace (Neg-Trace) mg/dL Urine Glucose (UA) Negative (Negative) mg/dL Urine Ketones Negative (Negative) mg/dL Urine Blood Large (3+) H (Negative) Urine Nitrite Negative (Negative) Ur Leukocyte Esterase Large (3+) H (Negative) Urine RBC 11-20 H (0-2) /HPF Urine WBC >50 H (0-5) /HPF Ur Squamous Epith Cells 0-2 (0-2) /HPF Urine Bacteria None Seen (None Seen) Hyaline Casts 0-2 (0-2) /LPF Discharge Plan Discharge Clinical Impression: UTI (urinary tract infection) Patient Disposition: Home, Self-Care Instructions: Urinary Tract Infection in Women (ED) Additional Instructions: Please follow-up with your primary care physician tomorrow. If you have any worsening or new symptoms, please return to the emergency room or call 911 Prescriptions: New cefuroxime axetil 500 mg tablet 500 mg PO BID Qty: 14 0RF phenazopyridine 100 mg tablet 100 mg PO TID PRN (Reason: pain) Qty: 6 0RF No Action (DME) blood-glucose meter [OneTouch Ultra2 Meter] Kit See Rx Instructions .ROUTE .MEDSUPPLY Qty: 1 0RF Rx Instructions: As directed check the blood sugar once a day (DME) blood sugar diagnostic Strip See Rx Instructions .ROUTE .MEDSUPPLY Qty: 100 3RF Rx Instructions: As directed check the blood sugar once a day (DME) lancets [OneTouch SureSoft Lancing Dev] 28 gauge misc See Rx Instructions .Route Qty: 100 3RF Rx Instructions: As directed check the blood sugar once a day (DME) FreeStyle Jesse 2 [place] Misc See Rx Instructions .ROUTE .COMPLEX Qty: 1 0RF Dose Instruction: USE DIRECTED Rx Instructions: USE DIRECTED (DME) FreeStyle Jesse 2 Sensor Kit See Rx Instructions .ROUTE .COMPLEX Qty: 6 0RF Dose Instruction: USE DIRECTED Rx Instructions: USE DIRECTED pravastatin 40 mg tablet 40 mg PO DAILY Qty: 90 3RF lisinopril 20 mg tablet 20 mg PO DAILY 30 Days Qty: 30 3RF Xarelto 20 mg tablet 20 mg PO DAILY Qty: 90 1RF metoprolol tartrate 50 mg tablet 50 mg PO BID Qty: 180 3RF gabapentin 300 mg Capsule 300 mg PO BID Qty: 60 3RF omeprazole 40 mg capsule,delayed release(DR/EC) 40 mg PO DAILY (DME) lancets [OneTouch Delica Plus Lancet] 33 gauge misc See Rx Instructions .ROUTE DAILY Qty: 100 Rx Instructions: As directed diltiazem HCl 240 mg capsule,extended release 24 hr 240 mg PO QAM Qty: 90 3RF peg 3350-electrolytes [Golytely] 236-22.74-6.74 -5.86 gram recon soln 240 ml PO Q10M Qty: 4000 0RF Rx Instructions: as per split prep instructions, until fecal effluent is clear
--- NOTE | 2023-04-16 20:09 | MHC.EDTECH ---
Patient brought into triage area,labs,and a urine obtained and sent to lab.
[2023-04-16 20:16] LABS: Mean Platelet Volume 8.8 fL (9.4-12.3); Monocytes Absolute Auto 0.9 X10*3/uL (0.1-1.2); PLT CLUMP 1; SCAN SMEAR FLAG 1
[2023-04-16 20:17] LABS: Appearance Urine Clear; Color Urine Yellow; Glucose Urine UA Negative (Negative); Leukocyte Esterase Urine Large (3+) (Negative); Nitrite Urine Negative (Negative); Specific Gravity - Urine <= 1.005 (1.005-1.025); UMIC TRIGGER UACC YES; Urine Blood Large (3+) (Negative); Urine Ketones Negative (Negative); Urine Protein Trace mg/dL (Neg-Trace)
[2023-04-16 20:18] LABS: Basophils Absolute Auto 0.1 X10*3/uL (0.0-0.2); Basophils Percent Auto 0.4 % (0-2); Eosinophils Absolute Auto 0.1 X10*3/uL (0.0-0.4); Eosinophils Percent Auto 0.9 % (0-4); Hematocrit 36.2 % (37.0-47.0); Hemoglobin 12.1 g/dl (12.0-16.0); Imm Gran Abs Auto 0.06 X10*3/uL (0.00-0.03); Imm Gran Pct Auto 0.5 % (0.0-0.4); Lymphocytes Absolute Auto 1.2 X10*3/uL (1.2-4.9); Lymphocytes Percent Auto 9.1 % (20-40); MANUAL DIFF FLAG SCAN; Mean Corpuscular HGB Conc 33.4 g/dl (31.0-35.0); Mean Corpuscular Volume 89.6 fL (80.0-98.0); Monocytes Percent Auto 7.1 % (2-11); Neutrophils Absolute Auto 10.6 x10*3/uL (2.0-8.3); Red Blood Count 4.04 X10*6/uL (4.20-5.50); Red Cell Distribution Width 12.8 % (11.0-16.0)
[2023-04-16 20:22] LABS: Bacteria Urine None Seen (None Seen); Hyaline Casts Urine 0-2 /LPF (0-2); Squamous Epithelial Cell Urine 0-2 /HPF (0-2); UACC Culture Trigger YES; WBC Urine >50 /HPF (0-5)
[2023-04-16 20:23] LABS: Platelet Count 234 X10*3/uL (160-400)
[2023-04-16 20:24] LABS: White Blood Count 12.9 X10*3/uL (4.8-10.8)
[2023-04-16 20:25] LABS: INTERNATIONAL NORM RATIO 1.8 (0.9-1.1); Prothrombin Time 21.7 SEC (11.1-13.3)
[2023-04-16 20:27] LABS: Anion Gap 14 (12-20); Blood Urea Nitrogen 18 mg/dL (9-16); Calcium 9.7 mg/dL (8.4-10.2); Carbon Dioxide 21 mmol/L (22-29); Chloride 105 mmol/L (96-108); Creatinine Clr Calc Pharmacy 44.5; Estimated Glomerular Filt Rate 55; Glucose Random 112 mg/dL (60-115); Potassium 4.2 mmol/L (3.3-5.1); Sodium 136 mmol/L (135-145)
[2023-04-16 20:34] LABS: SLIDE REVIEW VERIFIED
[2023-04-16] MEDS: Phenazopyridine HCL 100 MG TABLET PO (21:19)
[2023-04-16] MEDS: cefuroxime axetiL 500 MG TABLET PO (21:19)
[2023-04-16 21:22] VITALS: RESP 16
== END 2023-04-16 21:22 | disposition home or self-care (01) ==
PROVIDERS: Physician Assistant; Emergency Provider Emergency Medicine; PCP Internal Medicine
DX: N39.0 Urinary tract infection, site not specified (principal); R35.0 Frequency of micturition; R31.9 Hematuria, unspecified; R30.0 Dysuria; Z79.899 Other long term (current) drug therapy
CPT/HCPCS: 36415; 80048; 81001; 85025; 85610; 87086; 87088; 87186; 99283; 99284

== ENCOUNTER 2023-04-24 11:53 | Outpatient (AMB) | payer MEDICARE, SELFPAY ==
[2023-04-24 11:55] VITALS: BP 142/70; PULSE 85; O2SAT 100; BMI 21.3
--- NOTE | 2023-04-24 11:55 | MHC.PC.OV ---
Vital Signs 04/24/23 11:55 Height 5 ft 3 in Weight 120 lb BMI 21.3 BP 142/70 H Blood Pressure Location Lt brachial Position Sitting Pulse 85 Pulse Source Pulse Oximeter Pulse Oximetry (%) 100 Oxygen Delivery Method Room Air Intake Visit Reasons: [facility] 04[place] UTI/Blood in urine Intake Note: Patient is here to follow-up after a visit the emergency department at [facility] on 04/16/2023 for blood in urine [employer] Required: No Allergies latex [LATEX] Allergy (Intermediate, Verified 04/24/23 12:42) RASH WITH CONTACT Medication List - Last Reconciled 04/24/23 by Maurilio Carias MD blood sugar diagnostic As directed check the blood sugar once a day blood-glucose meter ([employer] (MSM) Ultra2 Meter kit) As directed check the blood sugar once a day diltiazem HCl ER 240 mg PO QAM flash glucose scanning reader (ETI InternationalStyle Jesse 2 [place]) USE DIRECTED flash glucose sensor (FreeStyle Jesse 2 Sensor kit) USE DIRECTED gabapentin 300 mg PO BID hydroxyzine HCl 25 mg PO TID PRN lancets ([employer] (MSM) SureSoft Lancing Devices) As directed check the blood sugar once a day lancets ([employer] Delica Plus Lancet) As directed lisinopril 20 mg PO DAILY 30 days metoprolol tartrate 50 mg PO BID omeprazole 40 mg PO DAILY peg 3350-electrolytes 236-22.74-6.74 -5.86 gram (Golytely) 240 mL PO Q10M pravastatin 40 mg PO DAILY rivaroxaban (Xarelto) 20 mg PO DAILY Tobacco use date assessed: 04/24/23 Fall risk assessment: No Falls in past year Last assessed Fall Risk: 04/24/23 Dental Screening Dental Screen Date: 04/24/23 HPI [facility] 04/16 UTI/Blood in urine HPI Details 67-year-old female with breast cancer October 2021 left status post left mastectomy paroxysmal atrial fibrillation diabetes mellitus hypercholesterolemia GERD hypertension last seen in November 2022. Patient is here for follow-up. Recent ER visit 04/16/2023 hematuria and dysuria treated with cefuroxime 500 mg twice a day. Patient follows up with Hematology-Oncology completed adjuvant chemotherapy January 2023 completed radiation December 2022 for mammogram.. For the pacemaker for sick sinus syndrome underwent leadless pacemaker on diltiazem and metoprolol and anticoagulant for atrial fibrillation advised increasing diltiazem for the blood pressure. Patient had a CT scan done of the abdomen in January showing no acute inflammatory changes mild colonic diverticulosis did have the flu shot in December 2022. Gastroenterology notes for hepatitis-B core antibody positive moderate risk of reactivation with chemotherapy for solid organ tumors but from available data minimal risk of reactivation patient is due for colonoscopy [facility] Medical History (Updated 04/24/23 @ 13:19 by Maurilio Carias MD) Colon cancer screening Hyperglycemia Port-A-Cath in place On beta harley at home Abnormal ultrasound of breast Screening for breast cancer PUD (peptic ulcer disease) Essential hypertension PAF (paroxysmal atrial fibrillation) Vertigo Pacemaker (~2008) GERD (gastroesophageal reflux disease) Hypercholesteremia Surgical History History of left mastectomy (07/04/22) History of lumpectomy of left breast History of appendectomy History of permanent cardiac pacemaker placement History of cholecystectomy History of tubal ligation Family History Mother No problems noted. Father No problems noted. 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 How often do you have a drink containing alcohol?: Never 3. How often do you have six or more drinks on one occasion?: Never Total Score: 0 JOSE-7 AMB Questionnaire JOSE-7 Date JOSE - 7 assessed: 04/24/23 Source: Developed by Drs. Nahum Britton, Aster Nguyen, Jl Verdin and colleagues, with an educational jessica from [employer]. Physical exam (Primary Care) Vital Signs: Last Vital Signs Pulse 85 02/07/24 11:55 BP 142/70 H 04/24/23 11:55 Pulse Ox 100 04/24/23 11:55 Oxygen Delivery Method Room Air 04/24/23 11:55 BMI result Body Mass Index 21.3 Tobacco/Smoking Status: Tobacco use Status Tobacco use date assessed 04/24/23 04/24/23 11:57 Patient Tobacco Use Status Never used Tobacco 04/24/23 11:57 e-Cigarette/Vaping Use Never Used 04/24/23 11:57 Thrive Assessment: Date of Thrive Assessment Date Thrive assessed 04/24/23 04/24/23 11:57 Const General: alert; No acute distress Eyes Conjunctivae: conjunctivae normal Resp Auscultation: clear to auscultation bilaterally Cardio Rate: regular rate Rhythm: regular rhythm GI Inspection: Yes normal to inspection Extrem General: Yes normal to inspection and No edema Results AMB Hemoglobin A1c AMB Hemoglobin A1c 6.1 % Last Edit by HEIDI Hidalgo on 04/24/23 12:49 Results Reviewed Results Reviewed: Laboratory Last Values Hgb A1c (Clinic) 6.1 % (4.0-6.0) H 04/24/23 10:49 Assessment and Plan Assessment & Plan (1) Positive colorectal cancer screening using Cologuard test: Code(s): R19.5 - Other fecal abnormalities Plan: Patient follows up with Gastroenterology and planned colonoscopy (2) PAF (paroxysmal atrial fibrillation): Code(s): I48.0 - Paroxysmal atrial fibrillation Plan: Continue with anticoagulation patient follows up with Cardiology (3) S/P left mastectomy: Comment: July 2022Residual invasive ductal carcinoma with squamous features, MSBR grade 3; negative margins. - Widespread Ductal carcinoma in situ, nuclear grade 2, with necrosis; positive superior margin and very close to multiple other margins (anterior, posterior, inferior and lateral). Code(s): Z90.12 - Acquired absence of left breast and nipple Plan: Continue to follow-up with Hematology-Oncology and surgeon (4) Type 2 diabetes mellitus with hyperglycemia: Code(s): E11.65 - Type 2 diabetes mellitus with hyperglycemia Plan: Decrease the amount of carbohydrate intake, pasta, bread, rice and potatoes are all sugar and that is aside from all the sweet stuff, remember that fruits are good but they are Sweet also. Hemoglobin A1c goal of less than 7.0. Is on diet control (5) Essential hypertension: Code(s): I10 - Essential (primary) hypertension Plan: Continue with blood pressure medication. Decrease salt intake and exercise metoprolol 50 mg twice a day lisinopril 20 mg once a day and diltiazem 240 mg recently increased by Cardiology. admits to have not taken med yet (6) Hypercholesteremia: Code(s): E78.00 - Pure hypercholesterolemia, unspecified Plan: Avoid fried foods, chicken skin, eggs, butter margarine, pastries and meat. Be it pork or beef they have a lot of cholesterol LDL goal of less than 100 (7) GERD (gastroesophageal reflux disease): Code(s): K21.9 - Gastro-esophageal reflux disease without esophagitis Plan: Avoid the foods that causes that usually spicy foods, tomato products, juices, coffee, soda and foods that your sensitive to. After eating do not lie down, allow 3-4 hours before in lie down. And keep the head of bed above 30 degrees to avoid the acid from going up. (8) Pacemaker: Onset Date: ~2008 Comment: Medtronic- placed 2008, generator change 2019 Code(s): Z95.0 - Presence of cardiac pacemaker Plan: Patient continues to follow-up with cardiology (9) UTI (urinary tract infection): Code(s): N39.0 - Urinary tract infection, site not specified Plan: treated and presently asymptomatic (10) Pruritus: Code(s): L29.9 - Pruritus, unspecified Orders: Orders AMB Hemoglobin A1c Today E11.65 - Type 2 diabetes mellitus with hyperglycemia UA CC w/rflx Micro + Cult Today L29.9 - Pruritus, unspecified, R30.0 - Dysuria Medications: New hydroxyzine HCl 25 mg PO TID PRN 30 tabs 1RF itching L29.9 - Pruritus, unspecified Changed From metoprolol tartrate 50 mg PO BID 180 tabs 3RF L29.9 - Pruritus, unspecified To metoprolol tartrate 75 mg (1.5 x 50 mg) PO BID 270 tabs 3RF 90 days L29.9 - Pruritus, unspecified Coding Level of Care Code Est Pt Level 4 (22793) Diagnoses Positive colorectal cancer screening using Cologuard test R19.5 PAF (paroxysmal atrial fibrillation) I48.0 S/P left mastectomy Z90.12 Type 2 diabetes mellitus with hyperglycemia E11.65 Essential hypertension I10 Hypercholesteremia E78.00 GERD (gastroesophageal reflux disease) K21.9 Pacemaker Z95.0 UTI (urinary tract infection) N39.0 Pruritus L29.9
== END 2023-04-24 13:33 | disposition home or self-care (01) ==
PROVIDERS: PCP Internal Medicine; Visit Provider Internal Medicine
DX: R19.5 Other fecal abnormalities (principal); I48.0 Paroxysmal atrial fibrillation; Z90.12 Acquired absence of left breast and nipple; E11.65 Type 2 diabetes mellitus with hyperglycemia; I10 Essential (primary) hypertension; E78.00 Pure hypercholesterolemia, unspecified; K21.9 Gastro-esophageal reflux disease without esophagitis; Z95.0 Presence of cardiac pacemaker; N39.0 Urinary tract infection, site not specified; L29.9 Pruritus, unspecified
CPT/HCPCS: 83036; 99214

== ENCOUNTER 2023-07-18 07:57 | Day surgery (SDC) | payer MEDICARE, SELFPAY ==
[2023-07-16 07:53] VITALS: BMI 20.5
--- NOTE | 2023-07-16 14:58 | HO.ANESPROP2 ---
Documented by User: Alessia Raygoza NP 07/16/23 15:02 HPI - Anesthesia Eval Consult details Narrative: 67yo F for Colonoscopy Leadless Pacer in situ Xarelto for afib Breast ca s/p Left mastectomy 2022, radiation PMFSH Active Problems Active Problems: All Active Problems Pruritus (Acute) Bradycardia (Acute) Left lower quadrant abdominal pain of unknown etiology (Acute) Positive colorectal cancer screening using Cologuard test (Acute) Age-related osteoporosis without current pathological fracture (Acute) Chest discomfort (Acute) PAF (paroxysmal atrial fibrillation) (Acute) S/P left mastectomy (Acute) 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) Shoulder pain, right (Acute) Type 2 diabetes mellitus with hyperglycemia (Acute) Pruritus (Acute) Rotator cuff tendonitis (Acute) Burning with urination (Acute) Persistent atrial fibrillation (Acute) Abnormal EKG (Acute) Hepatitis B core antibody positive (Acute) Depression, major (Acute) S/P lumpectomy, left breast (Acute) Ductal carcinoma in situ (DCIS) of left breast (Acute) Essential hypertension (Acute) Hypercholesteremia (Acute) Vertigo (Acute) GERD (gastroesophageal reflux disease) (Acute) Pacemaker (Acute ~2008) Left breast lump (Acute) Past Medical History Medical History Colon cancer screening Hyperglycemia Port-A-Cath in place On beta harley at home Abnormal ultrasound of breast Screening for breast cancer PUD (peptic ulcer disease) Essential hypertension PAF (paroxysmal atrial fibrillation) Vertigo Pacemaker (~2008) GERD (gastroesophageal reflux disease) Hypercholesteremia Family History Family History Mother No problems noted. Father No problems noted. Family history of problems with anesthesia: No Surgical History Surgical History History of left mastectomy (07/04/22) History of lumpectomy of left breast History of appendectomy History of permanent cardiac pacemaker placement History of cholecystectomy History of tubal ligation History of Problems with Anesthesia: No Social History Social History Household Members: Spouse Housing: House Are you a primary primary care nurse practitioner to a significant other at home: No Do you presently have visiting nurse or other home services: Yes (dressing changes) Alcohol intake: never Patient Tobacco Use Status: Never used Tobacco e-Cigarette/Vaping Use: Never Used Second Hand Smoke Exposure: No Use of substances other than those prescribed or required for medical reasons: No Are you DNR?: No Advance Directives: No Advance Directives Information Provided: Yes Advance Directives Date on File: 04/19/17 service: No Current occupational status: retired 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 Cognitive needs: No Hearing needs: No Vision needs: Yes Meds Allergies Allergy/AdvReac Type Severity Reaction Status Date / Time latex [LATEX] Allergy Intermediate RASH WITH Verified 06/05/23 13:06 CONTACT Home Medications ?Medication ?Instructions ?Recorded ?Confirmed ?Last Taken ?Type lancets 33 gauge (StyleChat by [employer] Delica #100 ea 01/02/22 06/05/23 Unknown History Plus Lancet) Exam Height,Weight and Vital Signs: Height 5 ft 3 in Weight 52.617 kg Pertinent Lab Results Pertinent Lab Results: Laboratory Tests 06/05/23 13:27 WBC 5.4 Hgb 11.8 L Hct 35.0 L Plt Count 160 D Sodium 140 Potassium 3.7 Chloride 109 H Carbon Dioxide 25 BUN 19 H Creatinine 1.00 Narrative Narrative: Cardiac Device Check Details: Date of service- 03/21/2023 ; Battery life >8 years; normal lead parameters; SCULPTURE INSTRUCTOR >93%; no significant arrhythmias. Overall normal device function. Assessment and Plan Assessment Anesthesia Assessment: Chart Reviewed Final Anesthetic Review Family History of Problems with Anesthesia: No History of Problems with Anesthesia: No Documented by User: Megan Mcgill MD 07/18/23 09:34 [facility] Past Medical History Medical History Colon cancer screening Hyperglycemia Port-A-Cath in place On beta harley at home Abnormal ultrasound of breast Screening for breast cancer PUD (peptic ulcer disease) Essential hypertension PAF (paroxysmal atrial fibrillation) Vertigo Pacemaker (~2008) GERD (gastroesophageal reflux disease) Hypercholesteremia Family History Family History Mother No problems noted. Father No problems noted. Surgical History Surgical History History of left mastectomy (07/04/22) History of lumpectomy of left breast History of appendectomy History of permanent cardiac pacemaker placement History of cholecystectomy History of tubal ligation Social History Social History Household Members: Spouse Housing: House Are you a primary primary care nurse practitioner to a significant other at home: No Do you presently have visiting nurse or other home services: Yes (dressing changes) Alcohol intake: never Patient Tobacco Use Status: Never used Tobacco e-Cigarette/Vaping Use: Never Used Second Hand Smoke Exposure: No Use of substances other than those prescribed or required for medical reasons: No Are you DNR?: No Advance Directives: No Advance Directives Information Provided: Yes Advance Directives Date on File: 04/19/17 service: No Current occupational status: retired 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 Cognitive needs: No Hearing needs: No Vision needs: Yes Meds Allergies Allergy/AdvReac Type Severity Reaction Status Date / Time latex [LATEX] Allergy Intermediate RASH WITH Verified 06/05/23 13:06 CONTACT Home Medications ?Medication ?Instructions ?Recorded ?Confirmed ?Last Taken ?Type lancets 33 gauge (StyleChat by [employer] Delica #100 ea 01/02/22 06/05/23 Unknown History Plus Lancet) Exam Airway Mallampati Class: II TM Dist: >3cm Neck ROM: Full Loose/Missing/Broken Teeth: No Heart: RRR Lungs: CTA Assessment and Plan Assessment Anesthesia Assessment: Anesthesia Plan Discussed Final Anesthetic Review NPO: Yes ASA Class: III Final Preanesthetic Review: Meds/Allgs Chart Reviewed, Consent Obtained/Reviewed and Anes Risks/Benef Reviewed Patient Risk: Intermediate Procedure Risk: Low Anesthetic Plan Anesthetic Plan: MAC: Disposition: Standard PACU
[2023-07-18 08:25] VITALS: BMI 21.8
[2023-07-18 08:31] VITALS: BP 142/53; PULSE 60; RESP 16; TEMP 35.9; O2SAT 98
--- NOTE | 2023-07-18 08:34 | MHC.SHP ---
Pre-Procedural Eval Section A - 24 Hr Update-Section A only Date of Service: 07/18/23 Section B - Complete if H&P > 30 days Chief Complaint: Positive cologuard Details of Present Illness: Breast infiltrating ductal ca Hyperglycemia Port-A-Cath in place On beta harley at home Abnormal ultrasound of breast Screening for breast cancer PUD (peptic ulcer disease) Essential hypertension PAF (paroxysmal atrial fibrillation) Vertigo Pacemaker (~2008) GERD (gastroesophageal reflux disease) Hypercholesteremia Surgical History History of left mastectomy (07/04/22) History of lumpectomy of left breast History of appendectomy History of permanent cardiac pacemaker placement History of cholecystectomy History of tubal ligation Present Medications: see Short Stay Collaborative assessment Allergies: Allergies Allergy/AdvReac Type Severity Reaction Status Date / Time latex [LATEX] Allergy Intermediate RASH WITH Verified 06/05/23 13:06 CONTACT Review of Systems Review of Systems Comment: Ten point ROS negative Exam Exam Comment: Gen appear: No acute distress HEENT: no icterus Chest: No overt resp distress Abd: soft, nontender, nondistended Psych: Stable affect, answering questions appropriately Neuro: A/Ox3 noted to move all extremities spontaneously Ext: no peripheral edema Plan Diagnosis/Plan: Unchanged I have reviewed the history and physical and performed a pertinent physical examination on my patient. No changes have occurred unless specified. Time Spent With Patient Time: Total time managing care of this patient today ____ minutes.
--- NOTE | 2023-07-18 08:45 | ECG_ITS ---
Test Reason : preop Blood Pressure : / mmHG Vent. Rate : 060 BPM Atrial Rate : 063 BPM P-R Int : 000 ms QRS Dur : 168 ms QT Int : 508 ms P-R-T Axes : 000 112 -20 degrees QTc Int : 508 ms Ventricular-paced rhythm Abnormal ECG When compared with ECG of 06-JUL-2022 12:40, V pacing noted Referred By: Megan Mcgill Electronically Signed By:ROBERT GILL
[2023-07-18] MEDS: Lactated Ringers 1,000 ML 100 ML IVCONT (08:50)
--- NOTE | 2023-07-18 09:38 | P.OP_ITS ---
Operative Note Operative Note Date of Service: 07/18/23 Narrative: Procedure: Colonoscopy Indication: Positive Cologuard Endoscopist: Grecia Carrasco MD Anesthesia Provider: Marsha Hernadez CRNA Anesthesia type: MAC Instrument: Olympus [id number]-H190L Consent: Indication, risks vs benefits, and alternatives were discussed with the patient who gave written informed consent to proceed. EKG, pulse, pulse oximetry and blood pressure were monitored throughout the procedure. Please see anesthesia flowsheet. Procedure: The patient was brought to the procedure room and placed in the left lateral decubitus position. IV medications were administered by the anesthesia provider in attendance. A digital rectal exam was performed which was normal. The distal attachment cap was affixed to the tip of the scope and the colonoscope was then inserted through the anus and advanced through the colon to the cecum at 65 cm,and terminal ileum. Ileocecal valve and appendiceal orifice were identified. Mucosa was carefully examined under high definition white light as the instrument was slowly withdrawn in a retrograde panoramic fashion. Retroflexion was performed in rectum. The procedure was not difficult. There were no immediate obvious complications. The quality of the prep was BBPS: 3+2+2 = adequate Withdrawal time 13 minutes. Limitations: No limitations. Findings: Mucosa: Normal to cecum and terminal ileum. Protruding lesions: * 1 sessile polyp of size 3 mm in cecum. Cold snare polypectomy was performed. The polyp was completely removed and retrieved. * 2 sessile polyps of size 2-4 mm in ascending colon. Cold snare polypectomy was performed. The polyp was completely removed and retrieved. * 1 sessile polyp of size 3 mm in transverse colon. Cold snare polypectomy was performed. The polyp was completely removed and retrieved. * Medium internal hemorrhoids stigmata of recent bleeding. Impression: 1. Normal colon and terminal ileum mucosa 2. Total of 4 polyps removed 3. Internal hemorrhoids Recommendations: - Follow path results. - Repeat colonoscopy in 3 years if all polyps are adenomas, otherwise 5 years.
[2023-07-18 09:41] VITALS: BP 90/40; PULSE 60; RESP 16; TEMP 36.1; O2SAT 98
[2023-07-18 09:56] VITALS: BP 92/38; PULSE 60; RESP 17; O2SAT 97
[2023-07-18 10:11] VITALS: BP 117/52; PULSE 60; RESP 17; TEMP 36.3; O2SAT 100
== END 2023-07-18 10:24 | disposition home or self-care (01) ==
PROVIDERS: PCP Internal Medicine; Visit Provider Internal Medicine
PROC: 0DJD8ZZ Inspection of Lower Intestinal Tract, Via Natural or Artificial Opening Endoscopic (ICD-10-PCS; CPT 45378; principal; 2023-07-18 09:30)
DX: R19.5 Other fecal abnormalities (principal); D12.0 Benign neoplasm of cecum; D12.3 Benign neoplasm of transverse colon; K63.5 Polyp of colon; K64.8 Other hemorrhoids; I10 Essential (primary) hypertension; Z95.0 Presence of cardiac pacemaker
CPT/HCPCS: 45385; 88305; 93005; J2704

== ENCOUNTER → 2023-07-18 07:57 | Outpatient (BNV) | payer MEDICARE, SELFPAY | PROVIDERS: PCP Internal Medicine; Visit Provider Internal Medicine | DX: Z12.11 Encounter for screening for malignant neoplasm of colon (principal); R19.5 Other fecal abnormalities; K63.5 Polyp of colon; K64.8 Other hemorrhoids | CPT/HCPCS: 45385 ==

== ENCOUNTER → 2023-07-18 08:45 | Outpatient (BNV) | payer MEDICARE, SELFPAY | PROVIDERS: PCP Internal Medicine; Visit Provider Internal Medicine | DX: R94.31 Abnormal electrocardiogram [ECG] [EKG] (principal); Z01.810 Encounter for preprocedural cardiovascular examination | CPT/HCPCS: 93010 ==

== ENCOUNTER → 2023-07-23 23:59 | Outpatient (BNV) | payer MEDICARE, SELFPAY ==
--- NOTE | 2023-07-24 14:30 | A.OFFVIS_ITS ---
Intake Visit Reasons: Remote device check- Medtronic Allergies latex [LATEX] Allergy (Intermediate, Verified 06/05/23 13:06) RASH WITH CONTACT [facility] Medical History Colon cancer screening Hyperglycemia Port-A-Cath in place On beta harley at home Abnormal ultrasound of breast Screening for breast cancer PUD (peptic ulcer disease) Essential hypertension PAF (paroxysmal atrial fibrillation) Vertigo Pacemaker (~2008) GERD (gastroesophageal reflux disease) Hypercholesteremia Surgical History History of left mastectomy (07/04/22) History of lumpectomy of left breast History of appendectomy History of permanent cardiac pacemaker placement History of cholecystectomy History of tubal ligation Family History Mother No problems noted. Father No problems noted. 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 Overall normal device function. [id number] Cardiac Device Interrogation, pacemaker Procedure code (CPT) selection complete Assessment & Plan Assessment & Plan (1) Persistent atrial fibrillation: Code(s): I48.19 - Other persistent atrial fibrillation Category: Medical Plan x Coding Level of Care Code Procedure Only Diagnoses Persistent atrial fibrillation I48.19 CPT Codes Cardiac Device Check - Cardiac Device 12: [id number] Cardiac Device Interrogation, pacemaker ([id number])
== END ==
PROVIDERS: PCP Internal Medicine; Visit Provider Internal Medicine
DX: I48.19 Other persistent atrial fibrillation (principal); Z95.0 Presence of cardiac pacemaker
CPT/HCPCS: 93294

== ENCOUNTER 2023-07-31 11:16 | Outpatient (AMB) | payer MEDICARE, SELFPAY ==
--- NOTE | 2023-07-31 11:29 | A.OFFVIS_ITS ---
Vital Signs 07/31/23 11:31 Height 5 ft 3 in Weight 121 lb 4.068 oz BMI 21.5 BP 140/67 H Blood Pressure Location Lt brachial Position Sitting Pulse 80 Intake Visit Reasons: s/p colon Intake Note: Lupe presents in the office as a follow up colonoscopy. CC: She states that she is not having any concerns from what she seen in her results - seems that everything was normal. 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 Pt was last seen in 2021 and then lost to follow up. 01/02/2022: on neoadjuvant treatment with pembrolizumab, carboplatin and Taxol with plan to start Adriamycin. She is here today to establish care for results hepatitis-B. Patient herself currently does not have any gastrointestinal complaints to include abdominal pain, nausea, vomiting, diarrhea. She does note some fogginess that has been present since starting her chemotherapy. [place] where she contracted hepatitis-B. Denies any new rashes, increased abdominal distension, lower extremity edema. Had never been told about liver issues in the past. Labs reviewed and show ALT 36 with AST 21. Total protein 6.2. Hep B surface antigen negative, hep B surface antibody positive, hep B total core positive. No recent abdominal imaging in the system. 01/07/23: At moderate risk of re-activation however at that time pt had requested to be started on anti-viral tx instead of going with on-demand therapy approach. Unfortunately the tenofovir was not covered by her insurance so pt never ended up taking it. Most recent labs show no evidence of reactivation with normal LFTs and negative HBsAg and DNA levels. An US Abd was also recommended last year which the pt did not remember to schedule. Pt today also reports vague LLQ pain ongoing x week which is not associated with fevers, chills, changes in bowel habits or appetite. No weight loss in fact reports gaining weight since completion of chemotherapy. Also recently finished radiation therapy and now on Pembrolizumab alone. On review of chart pt was also noted to have a positive cologuard from last month. Has never had screening for CRC in the past. No fam hx of CRC in first degree relatives. 07/18/23: 1. Normal colon and terminal ileum mucosa 2. Total of 4 polyps removed 3. Internal hemorrhoids Path: 2/4 tubular adenomas 07/31/23: Path reviewed. Will need a repeat colo in 7 years if in good health. Completed adjuvant pembro Jan 2023. Doing well from breast ca standpoint. Seeing Dr Mcgill for follow up today. [facility] Medical History (Updated 07/31/23 @ 12:09 by Grecia Carrasco MD) Colon cancer screening Hyperglycemia Port-A-Cath in place On beta harley at home Abnormal ultrasound of breast Screening for breast cancer PUD (peptic ulcer disease) Essential hypertension PAF (paroxysmal atrial fibrillation) Vertigo Pacemaker (~2008) GERD (gastroesophageal reflux disease) Hypercholesteremia Surgical History (Updated 07/31/23 @ 11:29 by HEIDI Bryson) Hx of colonoscopy History of left mastectomy (07/04/22) History of lumpectomy of left breast History of appendectomy History of permanent cardiac pacemaker placement History of cholecystectomy History of tubal ligation Family History Mother No problems noted. Father No problems noted. 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 Based on available data ICI's have minimal risk of HBV reactivation with HBsAg negative pts. Will check labs today and if surface Ag remains negative, no further reactivation monitoring needed; and can follow up as needed in that case. (2) Personal history of colonic polyps: Code(s): Z86.010 - Personal history of colonic polyps Category: Medical Plan: Reminder set for colo due in 2030. Orders: Orders Liver Panel Today R76.8 - Other specified abnormal immunological findings in serum Hepatitis B Surface Antibody Today R76.8 - Other specified abnormal immunological findings in serum Hepatitis B Surface Antigen Today R76.8 - Other specified abnormal immunological findings in serum Hepatitis B Viral DNA Qn Today R76.8 - Other specified abnormal immunological findings in serum Coding Level of Care Code Est Pt Level 4 (31428) Diagnoses Hepatitis B core antibody positive R76.8 Personal history of colonic polyps Z86.010
[2023-07-31 11:31] VITALS: BP 140/67; PULSE 80; BMI 21.5
== END 2023-07-31 12:20 | disposition home or self-care (01) ==
PROVIDERS: PCP Internal Medicine; Visit Provider Internal Medicine
DX: R76.8 Other specified abnormal immunological findings in serum (principal); Z86.010 Personal history of colon polyps
CPT/HCPCS: 99214

== ENCOUNTER → 2023-07-31 11:16 | Outpatient (BNVA) | payer MEDICARE, SELFPAY | PROVIDERS: PCP Internal Medicine; Visit Provider Internal Medicine | DX: R76.8 Other specified abnormal immunological findings in serum (principal); Z86.010 Personal history of colon polyps | CPT/HCPCS: 99212 ==

== ENCOUNTER 2023-08-01 08:41 | Outpatient (AMB) | payer MEDICARE, SELFPAY ==
--- NOTE | 2023-08-01 08:50 | MHC.OFFVIS ---
Vital Signs 08/01/23 08:52 Height 5 ft 3 in Weight 125 lb 4 oz BMI 22.2 BP 129/60 Blood Pressure Location Lt brachial Position Sitting Pulse 94 Intake Visit Reasons: 6 month breast exam Intake Note: Patient is seen in office for 6 month follow up visit, breast exam. 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 Accompanied by: Self / Same As Patient Allergies latex [LATEX] Allergy (Intermediate, Verified 08/01/23 08:51) RASH WITH CONTACT Medication List - Last Reconciled 08/01/23 by Severo Ferreira MD blood sugar diagnostic As directed check the blood sugar once a day blood-glucose meter ([employer] Ultra2 Meter kit) As directed check the blood sugar once a day diltiazem HCl ER 240 mg PO QAM flash glucose scanning reader (Communication Specialist LimitedStyle Jsese 2 [place]) USE DIRECTED flash glucose sensor (FreeStyle Jesse 2 Sensor kit) USE DIRECTED gabapentin 300 mg PO BID hydroxyzine HCl 25 mg PO TID PRN lancets ([employer] SureSoft Lancing Devices) As directed check the blood sugar once a day lancets ([employer] Delica Plus Lancet) As directed lisinopril 20 mg PO DAILY 30 days metoprolol tartrate 75 mg (1.5 x 50 mg) PO BID 90 days omeprazole 40 mg PO DAILY pravastatin 40 mg PO DAILY rivaroxaban (Xarelto) 20 mg PO DAILY HPI Comments Details: 67-year-old female patient with a left breast T2 N1 MX 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 She presented as a palpable mass 1st noted in July 2021. She is with 1 child who . Mammogram revealed a 2.5 cm spiculated mass in the upper outer quadrant associated with lymphadenopathy in the left axilla felt to be high suspicion for malignancy. She underwent ultrasound-guided core biopsy at the [facility] on 11/07/2021 both the breast mass and axillary lymphadenopathy. She was evaluated by Dr. Mcgill and subsequently started on neoadjuvant treatment which included pembrolizumab along with weekly carboplatin and Taxol on 12/04/21. A repeat mammogram on 05/10/2022 revealed marked reduction in the size of the breast lesion left side. On 06/06/2022 she underwent left breast lumpectomy with left axillary node dissection. Pathology revealed evidence of DCIS at multiple margins at both the initial excision specimen as well as the wider excision.? Findings are suggestive of diffuse DCIS which may be multifocal disease. She subsequently underwent a left simple mastectomy on 07/04/2022. She restarted chemotherapy on 08/20/2022. A pacemaker in the left chest was transferred out of the radiation field prior to obtaining radiation therapy to the left chest wall. She tolerated the therapy well. She notes some numbness in the skin around the incision especially in the axilla. She denies any swelling in the arm or hands. She denies any new left chest or right breast symptoms. Her last mammogram dated 04/10/2023 of the right breast revealed no mammographic evidence of malignancy (BI-RADS 1). [facility] Medical History Colon cancer screening Hyperglycemia Port-A-Cath in place On beta harley at home Abnormal ultrasound of breast Screening for breast cancer PUD (peptic ulcer disease) Essential hypertension PAF (paroxysmal atrial fibrillation) Vertigo Pacemaker (~2008) GERD (gastroesophageal reflux disease) Hypercholesteremia Surgical History Hx of colonoscopy History of left mastectomy (07/04/22) History of lumpectomy of left breast History of appendectomy History of permanent cardiac pacemaker placement History of cholecystectomy History of tubal ligation Family History Mother No problems noted. Father No problems noted. 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 Cognitive needs: No Hearing needs: No Vision needs: Yes Review of Systems Const All systems reviewed & are unremarkable except as noted in HPI and below Denies chills, Denies fever(s), Denies headache(s), Denies poor appetite and Denies weakness ENT Denies headache(s) Card Denies chest pain, Denies irregular heart rhythm, Denies palpitations and Denies dyspnea Resp Denies cough, Denies excessive phlegm production and Denies dyspnea GI Denies abdominal pain, Denies bloating, Denies change in bowel habits, Denies constipation, Denies heartburn, Denies diarrhea, Denies nausea and Denies vomiting Denies urinary frequency Musc Denies back pain, Denies muscle weakness and Denies numbness Skin/Breast Denies changing lesions and Denies unusual bruising Neuro Denies headache(s), Denies numbness, Denies paresthesias and Denies weakness Psych Denies anxiety and Denies depression Endo Denies palpitations Dean/Lymph Denies lymphadenopathy Physical Exam Vital Signs: Last Vital Signs Pulse 94 08/01/23 08:52 BP 129/60 08/01/23 08:52 BMI result Body Mass Index 22.2 Const General: no acute distress Chest Other: Well-healed left mastectomy incision. Flaps are flat with good healing, no residual fluid appreciated. Axilla is soft with no palpable nodules. Radiation skin change has now resolved. Right breast reveals no skin change, nipple discharge, nipple retraction, palpable mass, or enlarged lymph nodes. Chest/axillae images: 1. Resp Effort & Inspection: normal respiratory effort, no audible wheezes, no cough and no respiratory distress Skin Other: Warm, dry, no rash Extrem General: Yes normal to inspection and No edema Assessment & Plan Assessment & Plan (1) S/P left mastectomy: Comment: July 2022Residual invasive ductal carcinoma with squamous features, MSBR grade 3; negative margins. - Widespread Ductal carcinoma in situ, nuclear grade 2, with necrosis; positive superior margin and very close to multiple other margins (anterior, posterior, inferior and lateral). Code(s): Z90.12 - Acquired absence of left breast and nipple Category: Surgical (2) Ductal carcinoma in situ (DCIS) of left breast: Code(s): D05.12 - Intraductal carcinoma in situ of left breast Category: Medical Plan 67-year-old female patient with invasive ductal carcinoma and DCIS, triple negative, status post neoadjuvant treatment followed by lumpectomy followed by mastectomy for positive margins. She underwent adjuvant radiation and chemotherapy postoperatively and tolerated this well. She is now completed all therapy and feels much improved. Her chest wall is well healed with no evidence of recurrent disease. Right breast is normal as well. Her most recent mammogram of 04/10/2023 reveals no mammographic evidence of malignancy in the right breast. She will return in 6 months for follow-up examination. She is welcome to call sooner for any new concerns. Coding Level of Care Code Est Pt Level 3 (09053) Diagnoses S/P left mastectomy Z90.12 Ductal carcinoma in situ (DCIS) of left breast D05.12
[2023-08-01 08:52] VITALS: BP 129/60; PULSE 94; BMI 22.2
== END 2023-08-01 09:12 | disposition home or self-care (01) ==
PROVIDERS: PCP Internal Medicine; Visit Provider Surgery
DX: D05.12 Intraductal carcinoma in situ of left breast (principal); Z90.12 Acquired absence of left breast and nipple
CPT/HCPCS: 99213

== ENCOUNTER → 2023-08-01 08:41 | Outpatient (BNVA) | payer MEDICARE, SELFPAY | PROVIDERS: PCP Internal Medicine; Visit Provider Surgery | DX: D05.12 Intraductal carcinoma in situ of left breast (principal); Z90.12 Acquired absence of left breast and nipple | CPT/HCPCS: 99212 ==

== ENCOUNTER 2023-10-24 08:46 | Outpatient (REF) | payer MEDICARE, SELFPAY ==
--- NOTE | ~2023-10-24 | MM_ITS ---
EXAMINATION: BONE DENSITOMETRY CLINICAL INDICATION: Postmenopausal bone loss. COMPARISON: This is the patient's baseline examination. TECHNIQUE: Using a [employer] DXA System (software version: 13.1) manufactured by [employer], dual-energy x-ray absorptiometry was performed of the lumbar spine and left hip. The images are of good technical quality. Summary results are attached. FINDINGS: LEFT FEMUR, NECK: BMD 0.759 g/cm2, Z-score -0.2, T-score -2.0, osteopenia. LEFT FEMUR, TOTAL: BMD 0.774 g/cm2, Z-score -0.2, T-score -1.9, osteopenia. AP SPINE L1-L3 (excluding L4): The data of L1-L4 has been changed to exclude the L4 vertebral body, because degenerative sclerosis at this level may cause overestimation of lumbar spine density. BMD 0.811 g/cm2, Z-score -1.0, T-score -3.0, osteoporosis. IDENTIFIED RISK FACTORS: Menopause. HISTORY OF FRACTURE: None listed. MEDICATIONS: Multivitamin. MM/XR DEXA axial skeleton IMPRESSION: 1. DIAGNOSIS: Osteoporosis based on the lowest T-score value of -3.0 in the lumbar spine applying World Health Organization criteria. 2. 10-YEAR FRACTURE RISK PREDICTION, FRAX: According to the guidelines, FRAX calculation should only be performed on patients in the osteopenia bone density category. Therefore, FRAX was not performed on this patient. 3. Treatment Recommendations: NOF guidelines recommend consideration for treatment in postmenopausal women and men age 50 and older presenting with the following: -A hip or vertebral (clinical or morphometric) fracture. -T-score less than or equal to -2.5 at the femoral neck or spine after appropriate evaluation to exclude secondary causes. -Low bone mass at the hip or spine and a 10-year fracture probability by FRAX of greater than or equal to 3% for hip fracture or greater than or equal to 20% for major osteoporotic fracture based on the [place] adapted WHO algorithm. 4. Other Recommendations: All treatment decisions require clinical judgment and consideration of individual patient factors, including patient preferences, comorbidities, previous drug use, risk factors not captured in the FRAX model (e.g. frailty, falls, vitamin D deficiency, increased bone turnover, interval significant decline in bone density) and possible under or overestimation of fracture risk by FRAX. Additional medical evaluation for secondary cause of low bone mineral density may be appropriate. FUTURE SCAN RECOMMENDATION: People with diagnosed cases of osteoporosis or at high risk for fracture should have regular bone mineral density tests. For patients eligible for Medicare, routine testing is allowed once every 2 years. The testing frequency can be increased to one year for patients who have rapidly progressing disease, those who are receiving or discontinuing medical therapy to restore bone mass, or have additional risk factors.
== END 2023-10-24 08:47 | disposition home or self-care (01) ==
LOC: HO.MAMMO 08:46
PROVIDERS: Visit Provider Internal Medicine
DX: Z13.820 Encounter for screening for osteoporosis (principal); M89.9 Disorder of bone, unspecified; Z78.0 Asymptomatic menopausal state; C50.912 Malignant neoplasm of unspecified site of left female breast
CPT/HCPCS: 77080

== ENCOUNTER 2023-10-30 14:26 | Outpatient (AMB) | payer MEDICARE, SELFPAY ==
[2023-10-30 14:29] VITALS: BP 122/58; PULSE 79; BMI 22.2
--- NOTE | 2023-10-30 14:29 | A.OFFVIS_ITS ---
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 Accompanied by: Self / Same As Patient Allergies latex [LATEX] Allergy (Intermediate, Verified 09/25/23 13:52) RASH WITH CONTACT Medication List - Last Reconciled 10/30/23 by David Ellis MD blood sugar diagnostic As directed check the blood sugar once a day blood-glucose meter ([employer] Ultra2 Meter kit) As directed check the blood sugar once a day diltiazem HCl ER 240 mg PO QAM flash glucose scanning reader ([employer] MediaStyle Jesse 2 [place]) USE DIRECTED flash glucose sensor (Power[employer] MediaStyle Jesse 2 Sensor kit) USE DIRECTED lancets ([employer] SureSoft Lancing Devices) As directed check the blood sugar once a day lancets ([employer]innacle-[employer] Delica Plus Lancet) As directed lisinopril 20 mg PO DAILY 30 days metoprolol tartrate 50 mg PO BID omeprazole 40 mg PO DAILY pravastatin 40 mg PO DAILY rivaroxaban (Xarelto) 20 mg PO DAILY HPI Comments Details: Lupe returns for follow-up. She is under treatment for breast cancer. She had a left-sided pacemaker that was in the way of radiation and after discussion with Radiation Oncology, she underwent a leadless pacemaker. The RV and RA leads were capped. The old dual-chamber pacemaker generator was explanted. She states she gets non-exertional random pains for 5 seconds or so, but nothing on exertion like doing stairs etc. [facility] Medical History Colon cancer screening Hyperglycemia Port-A-Cath in place On beta harley at home Abnormal ultrasound of breast Screening for breast cancer PUD (peptic ulcer disease) Essential hypertension PAF (paroxysmal atrial fibrillation) Vertigo Pacemaker (~2008) GERD (gastroesophageal reflux disease) Hypercholesteremia Surgical History Hx of colonoscopy History of left mastectomy (07/04/22) History of lumpectomy of left breast History of appendectomy History of permanent cardiac pacemaker placement History of cholecystectomy History of tubal ligation Family History Mother No problems noted. Father No problems noted. 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 Cognitive needs: No Hearing needs: No Vision needs: Yes Review of Systems Const Denies chills, Denies fatigue, Denies fever(s), Denies weight gain and Denies weight loss ENT Denies dizziness Card Denies chest pain, Denies leg edema, Denies lightheadedness, Denies palpitations, Reports dyspnea on exertion, Denies orthopnea and Denies other Resp Denies cough and Reports dyspnea on exertion GI Denies hematochezia and Denies change in stool character Musc Denies abnormal gait, Denies muscle weakness, Denies numbness, Denies radiating pain into limb and Denies tingling Neuro Denies abnormal gait, Denies dizziness, Denies numbness and Denies tingling Endo Denies fatigue and Denies palpitations Physical Exam Vital Signs: Last Vital Signs Pulse 79 10/30/23 14:29 BP 122/58 L 10/30/23 14:29 BMI result Body Mass Index 22.2 Const General: comfortable and no acute distress Orientation/consciousness: patient oriented x3 HEENT Other: Unremarkable Head: Yes normal to inspection Neck Neck: Yes normal visual inspection Chest Chest palpation & inspection: normal inspection of the chest Resp Auscultation: clear to auscultation bilaterally Cardio Palpation: normal PMI Heart sounds: S1 normal heart sound present, S2 normal heart sound present, no gallops, no murmurs and no rubs GI Palpation (GI): Soft to palpation Back/Spine/Pelvis Other: unremarkable Skin General skin exam: no rashes or lesions noted Neuro General: patient oriented x3 Extrem General: Yes normal to inspection Psych Mental Status: mental status grossly normal Assessment & Plan Assessment & Plan (1) Persistent atrial fibrillation: Code(s): I48.19 - Other persistent atrial fibrillation Category: Medical Plan: Continue diltiazem and metoprolol. She is also on anticoagulation. (2) Normally functioning cardiac pacemaker present: Code(s): Z95.0 - Presence of cardiac pacemaker Category: Medical Plan: Follow in remote monitoring. (3) Essential hypertension: Code(s): I10 - Essential (primary) hypertension Category: Medical Plan: Stable. (4) Other and unspecified hyperlipidemia: Code(s): E78.5 - Hyperlipidemia, unspecified Category: Medical Plan: On statins. Last LDL cholesterol levels are 86 and 95 mg/dL. Medications: Changed From metoprolol tartrate 75 mg (1.5 x 50 mg) PO BID 90 days 270 tabs 3RF L29.9 - Pruritus, unspecified To metoprolol tartrate 50 mg PO BID L29.9 - Pruritus, unspecified Coding Level of Care Code Est Pt Level 4 (67583) Diagnoses Persistent atrial fibrillation I48.19 Normally functioning cardiac pacemaker present Z95.0 Essential hypertension I10 Other and unspecified hyperlipidemia E78.5
== END 2023-10-30 14:48 | disposition home or self-care (01) ==
PROVIDERS: PCP Internal Medicine; Visit Provider Internal Medicine
DX: I48.19 Other persistent atrial fibrillation (principal); Z95.0 Presence of cardiac pacemaker; I10 Essential (primary) hypertension; E78.5 Hyperlipidemia, unspecified
CPT/HCPCS: 99214

== ENCOUNTER → 2023-10-30 14:26 | Outpatient (BNVA) | payer MEDICARE, SELFPAY | PROVIDERS: PCP Internal Medicine; Visit Provider Internal Medicine | DX: I48.19 Other persistent atrial fibrillation (principal); I10 Essential (primary) hypertension; E78.5 Hyperlipidemia, unspecified; Z95.0 Presence of cardiac pacemaker | CPT/HCPCS: 99212 ==

== ENCOUNTER 2024-02-06 11:45 | Outpatient (AMB) | payer MEDICARE, SELFPAY ==
--- NOTE | 2024-02-06 11:41 | A.OFFVIS_ITS ---
Vital Signs 3 02/06/24 11:52 Height 5 ft 3 in Weight 127 lb 8 oz BMI 22.6 BP 129/60 Blood Pressure Location Lt brachial Position Sitting Pulse 91 Intake Visit Reasons: 6 month breast exam Intake Note: Patient is seen in office for 6 month follow up visit, breast exam. Pt c/o: left side discomfort at the incision to the touch mostly on rainy/cold days, denies any other concerns mm:04/10/23 Bacteriologist Dairy Required: No Runway Model: Runway Model Present Accompanied by: Self / Same As Patient Allergies latex [LATEX] Allergy (Intermediate, Verified 02/06/24 11:45) RASH WITH CONTACT Medication List - Last Reconciled 02/06/24 by Severo Ferreira MD blood sugar diagnostic As directed check the blood sugar once a day blood-glucose meter ([employer] Ultra2 Meter kit) As directed check the blood sugar once a day diltiazem HCl ER 240 mg PO QAM flash glucose scanning reader (Applied OptoelectronicsStyle Jesse 2 [place]) USE DIRECTED flash glucose sensor (FreeStyle Jesse 2 Sensor kit) USE DIRECTED lancets ([employer] SureSoft Lancing Devices) As directed check the blood sugar once a day lancets ([employer] Delica Plus Lancet) As directed lisinopril 20 mg PO DAILY 30 days metoprolol tartrate 50 mg PO BID omeprazole 40 mg PO DAILY pravastatin 40 mg PO DAILY rivaroxaban (Xarelto) 20 mg PO DAILY HPI Comments Details: 68-year-old female patient with a left breast T2 N1 MX 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 She presented as a palpable mass 1st noted in July 2021. She is with 1 child who . Mammogram revealed a 2.5 cm spiculated mass in the upper outer quadrant associated with lymphadenopathy in the left axilla felt to be high suspicion for malignancy. She underwent ultrasound-guided core biopsy at the [facility] on 11/07/2021 both the breast mass and axillary lymphadenopathy. She was evaluated by Dr. Mcgill and subsequently started on neoadjuvant treatment which included pembrolizumab along with weekly carboplatin and Taxol on 12/04/21. A repeat mammogram on 05/10/2022 revealed marked reduction in the size of the breast lesion left side. On 06/06/2022 she underwent left breast lumpectomy with left axillary node dissection. Pathology revealed evidence of DCIS at multiple margins at both the initial excision specimen as well as the wider excision.? Findings are suggestive of diffuse DCIS which may be multifocal disease. She subsequently underwent a left simple mastectomy on 07/04/2022. She restarted chemotherapy on 08/20/2022. A pacemaker in the left chest was transferred out of the radiation field prior to obtaining radiation therapy to the left chest wall. She tolerated the therapy well. She notes some numbness in the skin around the incision especially in the axilla. She denies any swelling in the arm or hands. She denies any new left chest or right breast symptoms. Her last mammogram dated 04/10/2023 of the right breast revealed no mammographic evidence of malignancy (BI-RADS 1). [facility] Medical History Colon cancer screening Hyperglycemia Port-A-Cath in place On beta harley at home Abnormal ultrasound of breast Screening for breast cancer PUD (peptic ulcer disease) Essential hypertension PAF (paroxysmal atrial fibrillation) Vertigo Pacemaker (~2008) GERD (gastroesophageal reflux disease) Hypercholesteremia Surgical History Hx of colonoscopy History of left mastectomy (07/04/22) History of lumpectomy of left breast History of appendectomy History of permanent cardiac pacemaker placement History of cholecystectomy History of tubal ligation Family History Mother No problems noted. Father No problems noted. 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 Cognitive needs: No Hearing needs: No Vision needs: Yes Review of Systems Const All systems reviewed & are unremarkable except as noted in HPI and below Denies chills, Denies fever(s), Denies headache(s), Denies poor appetite and Denies weakness ENT Denies headache(s) Card Denies chest pain, Denies irregular heart rhythm, Denies palpitations and Denies dyspnea Resp Denies cough, Denies excessive phlegm production and Denies dyspnea GI Denies abdominal pain, Denies bloating, Denies change in bowel habits, Denies constipation, Denies heartburn, Denies diarrhea, Denies nausea and Denies vomiting Denies urinary frequency Musc Denies back pain, Denies muscle weakness and Denies numbness Skin/Breast Denies changing lesions and Denies unusual bruising Neuro Denies headache(s), Denies numbness, Denies paresthesias and Denies weakness Psych Denies anxiety and Denies depression Endo Denies palpitations Dean/Lymph Denies lymphadenopathy Physical Exam Vital Signs: Last Vital Signs Pulse 91 02/06/24 11:52 BP 129/60 02/06/24 11:52 BMI result Body Mass Index 22.6 Const General: no acute distress Chest Other: Well-healed left mastectomy incision. Flaps are flat with good healing, no residual fluid appreciated. Axilla is soft with no palpable nodules. Radiation skin change has now resolved. Right breast reveals no skin change, nipple discharge, nipple retraction, palpable mass, or enlarged lymph nodes. Chest/axillae images: 2 1. Resp Effort & Inspection: normal respiratory effort, no audible wheezes, no cough and no respiratory distress Skin Other: Warm, dry, no rash Neuro Other: Mobility Assessment:5 1. 3 meter assessment time (seconds) 2. Gait observations: Normal balance and gait Extrem General: Yes normal to inspection and No edema Assessment & Plan Assessment & Plan (1) S/P left mastectomy: Comment: July 2022Residual invasive ductal carcinoma with squamous features, MSBR grade 3; negative margins. - Widespread Ductal carcinoma in situ, nuclear grade 2, with necrosis; positive superior margin and very close to multiple other margins (anterior, posterior, inferior and lateral). Code(s): Z90.12 - Acquired absence of left breast and nipple Category: Surgical (2) Ductal carcinoma in situ (DCIS) of left breast: Code(s): D05.12 - Intraductal carcinoma in situ of left breast Category: Medical Plan 68-year-old female patient with invasive ductal carcinoma and DCIS, triple negative, status post neoadjuvant treatment followed by lumpectomy followed by mastectomy for positive margins. She underwent adjuvant radiation and chemotherapy postoperatively and tolerated this well. She is now completed all therapy and feels much improved. Her chest wall is well healed with no evidence of recurrent disease. Right breast is normal as well. Her most recent mammogram of 04/10/2023 reveals no mammographic evidence of malignancy in the right breast. She will return in 6 months for follow-up examination. She is welcome to call sooner for any new concerns. Coding Level of Care Code Est Pt Level 3 (24255) Diagnoses S/P left mastectomy Z90.12 Ductal carcinoma in situ (DCIS) of left breast D05.12
[2024-02-06 11:52] VITALS: BP 129/60; PULSE 91; BMI 22.6
== END 2024-02-06 12:01 | disposition home or self-care (01) ==
PROVIDERS: PCP Internal Medicine; Visit Provider Surgery
DX: Z90.12 Acquired absence of left breast and nipple (principal); D05.12 Intraductal carcinoma in situ of left breast
CPT/HCPCS: 99213

== ENCOUNTER → 2024-02-06 11:45 | Outpatient (BNVA) | payer MEDICARE, SELFPAY | PROVIDERS: PCP Internal Medicine; Visit Provider Surgery | DX: D05.12 Intraductal carcinoma in situ of left breast (principal); Z90.12 Acquired absence of left breast and nipple; Z17.1 Estrogen receptor negative status [ER-]; Z17.22 Progesterone receptor negative status; Z17.32 Human epidermal growth factor receptor 2 negative status; Z92.21 Personal history of antineoplastic chemotherapy; Z92.3 Personal history of irradiation | CPT/HCPCS: 99212 ==

== ENCOUNTER 2024-03-16 14:54 | Outpatient (AMB) | payer MEDICARE, SELFPAY ==
[2024-03-16 15:28] VITALS: BP 134/70; PULSE 93; O2SAT 98; BMI 22.9
--- NOTE | 2024-03-16 15:37 | A.OFFPC_ITS ---
Vital Signs 03/16/24 15:28 Height 5 ft 3 in Weight 129 lb 2 oz BMI 22.9 BP 134/70 Blood Pressure Location Lt brachial Position Sitting Pulse 93 Pulse Source Pulse Oximeter Pulse Oximetry (%) 98 Oxygen Delivery Method Room Air Intake Visit Reasons: Hypertension Allergies latex [LATEX] Allergy (Intermediate, Verified 03/16/24 15:37) RASH WITH CONTACT Tobacco use date assessed: 04/24/23 Dental Screening Dental Screen Date: 04/24/23 HPI Hypertension HPI Details The patient is a 68-year-old female presenting for routine follow-up to address ongoing management of her chronic health conditions and preventive care. The patient has a history of hypertension, which is reported to be well- controlled currently. She was diagnosed with Type 2 Diabetes Mellitus, with her most recent A1c reported as 5.9%, indicating adequate glycemic control without pharmacotherapy. The patient's hyperlipidemia is usually managed with Simvastatin, but there was confusion, with recent use of Pravastatin. She reports receiving regular blood work approximately every two to three months, however, she has not had recent testing for lipid panels since 2021. Osteoporosis is confirmed, with noted weakness predominantly in the spine, which raises her risk for fractures; this necessitates monitoring and management. The patient has a history of breast cancer, and has completed treatment, but conc erns about osteoporosis are highlighted due to the previous need to discontinue hormone therapy. Additionally, she has a pacemaker for atrial fibrillation placed abdominally after evaluation by cardiology. Chronic Kidney Disease is monitored with attention to hydration needs discussed due to kidney function concerns. During the preventive care discussion, she mentioned previous vaccinations inclu ding influenza and COVID-19, but she has not received the pneumococcal vaccine to date. The patient practices regular physical activity every morning, though brief, and it is recommended for her overall health and bone strength. She is advised on adequate hydration as essential for kidney health. PFSH Medical History Colon cancer screening Hyperglycemia Port-A-Cath in place On beta harley at home Abnormal ultrasound of breast Screening for breast cancer PUD (peptic ulcer disease) Essential hypertension PAF (paroxysmal atrial fibrillation) Vertigo Pacemaker (~2008) GERD (gastroesophageal reflux disease) Hypercholesteremia Surgical History Hx of colonoscopy History of left mastectomy (07/04/22) History of lumpectomy of left breast History of appendectomy History of permanent cardiac pacemaker placement History of cholecystectomy History of tubal ligation Family History Mother No problems noted. Father No problems noted. Social History (Reviewed 03/16/24 @ 15:37 by Mragie Zhong 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 1. Little interest or pleasure in doing things: not at all 2. Feeling down, depressed, or hopeless: not at all 3. Trouble falling or staying asleep, or sleeping too much: not at all 4. Feeling tired or having little energy: not at all 5. Poor appetite or overeating: not at all 6. Feeling bad about yourself - or that you are a failure or have let yourself or your family down: not at all 7. Trouble concentrating on things, such as reading the newspaper or watching television: not at all 8. Moving or speaking so slowly that other people could have noticed. Or the o pposite - being so fidgety or restless that you have been moving around a lot more than usual: not at all 9. Thoughts that you would be better off or of hurting yourself in some way: not at all Total score: 0 Depression Screening Interpretation: Negative Depression Screening Done: Yes Source: Developed by Drs. Nahum Britton, Aster Nguyen, Jl Verdin and colleagues, with an educational jessica from [employer]. Thrive Questionnaire Date Thrive assessed: 03/16/24 I am a: Patient What is your living situation today?: I have a steady place to live Within the past 12 months, did the food you bought not last and you didn't have the money to get more?: Never true Within the past 12 months, did you worry whether your food would run out before you got money to buy more?: Never true THRIVE Score: 0 AUDIT C Alcohol Use Questionnaire (AUDIT-C) 1. How often do you have a drink containing alcohol?: Never 3. How often do you have six or more drinks on one occasion?: Never Total Score: 0 JOSE-7 AMB Questionnaire JOSE-7 Date JOSE - 7 assessed: 03/16/24 Feeling nervous, anxious, or on edge: 0 = Not at all Not being able to stop or control worryin = Not at all Worrying too much about different things: 0 = Not at all Trouble relaxin = Not at all Being so restless that it is hard to sit still: 0 = Not at all Becoming easily annoyed or irritable: 0 = Not at all Feeling afraid as if something awful might happen: 0 = Not at all Total JOSE-7 score (0-4 normal; 5-9 mild; 10-14 moderate; 15-21 severe): 0 Source: Developed by Drs. Nahum Britton, Aster Nguyen, Jl Verdin and colleagues, with an educational jessica from [employer]. Physical exam (Primary Care) Vital Signs: Last Vital Signs Pulse 93 03/16/24 15:28 BP 134/70 03/16/24 15:28 Pulse Ox 98 03/16/24 15:28 Oxygen Delivery Method Room Air 03/16/24 15:28 BMI result Body Mass Index 22.9 Tobacco/Smoking Status: Tobacco use Status Tobacco use date assessed 04/24/23 03/16/24 15:38 Patient Tobacco Use Status Never used Tobacco 03/16/24 15:38 e-Cigarette/Vaping Use Never Used 03/16/24 15:38 PHQ-9: PHQ-9 Score PHQ-9: Total score 0 03/16/24 15:49 Depression Screening Interpretation: Negative Thrive Assessment: Date of Thrive Assessment Date Thrive assessed 03/16/24 03/16/24 15:38 Const General: alert; No acute distress Eyes Conjunctivae: conjunctivae normal Resp Auscultation: clear to auscultation bilaterally Cardio Rate: regular rate Rhythm: regular rhythm GI Inspection: Yes normal to inspection Extrem General: Yes normal to inspection and No edema Results AMB Hemoglobin A1c AMB Hemoglobin A1c 5.9 % Last Edit by Margie Zhong CMA on 03/16/24 15:42 Results Reviewed Results Reviewed: Laboratory Last Values Hgb A1c (Clinic) 5.9 % (4.0-6.0) 03/16/24 15:39 Coding Level of Care Code Est Pt Level 4 (15719) Diagnoses Essential hypertension I10 Hypercholesteremia E78.00 Type 2 diabetes mellitus with hyperglycemia E11.65 S/P left mastectomy Z90.12 PAF (paroxysmal atrial fibrillation) I48.0 Osteoporosis M81.0 Assessment & Plan Assessment & Plan (1) Essential hypertension: Code(s): I10 - Essential (primary) hypertension Category: Medical (2) Hypercholesteremia: Code(s): E78.00 - Pure hypercholesterolemia, unspecified Category: Medical (3) Type 2 diabetes mellitus with hyperglycemia: Code(s): E11.65 - Type 2 diabetes mellitus with hyperglycemia Category: Medical (4) S/P left mastectomy: Comment: July 2022Residual invasive ductal carcinoma with squamous features, MSBR grade 3; negative margins. - Widespread Ductal carcinoma in situ, nuclear grade 2, with necrosis; positive superior margin and very close to multiple other margins (anterior, posterior, inferior and lateral). Code(s): Z90.12 - Acquired absence of left breast and nipple Category: Surgical (5) PAF (paroxysmal atrial fibrillation): Code(s): I48.0 - Paroxysmal atrial fibrillation Category: Medical (6) Osteoporosis: Comment: 10/2023 Code(s): M81.0 - Age-related osteoporosis without current pathological fracture Category: Medical Plan: discussion about medication for helping bone density Plan - Hypertension: Continue monitoring blood pressure and adjust medications as necessary for optimal control. - Type 2 Diabetes Mellitus: Maintain monitoring through routine A1c testing; encourage dietary management and exercise without need for pharmacotherapy currently. - Hyperlipidemia: Clarify and switch back to Simvastatin; perform lipid panel testing to reassess cholesterol levels. - Osteoporosis: Recommend calcium and vitamin D supplementation; evaluate bone density periodically and address lifestyle changes to mitigate fracture risk. - Pacemaker: Regular follow-up with cardiology to ensure device functionality and address any arrhythmia concerns. - Chronic Kidney Disease: Advise on adequate daily hydration; plan kidney function monitoring as per necessary intervals. - Preventive Care: Administer pneumococcal vaccine; encourage regular physical activity and healthy dietary habits; update any additional vaccinations as indicated. - Regular follow-up: Ensure ongoing monitoring of all chronic conditions and respond to any new symptoms or concerns promptly. Orders: Orders AMB Hemoglobin A1c Today Z13.9 - Encounter for screening, unspecified Comprehensive Met. Panel Today E78.00 - Pure hypercholesterolemia, unspecified Free T4 (Free Thyroxine) Today E78.00 - Pure hypercholesterolemia, unspecified Thyroid Stimulating Hormone Today E78.00 - Pure hypercholesterolemia, unspecified Lipid Panel Today E78.00 - Pure hypercholesterolemia, unspecified Vitamin B12 and Folate Today E78.00 - Pure hypercholesterolemia, unspecified Vitamin D 25-OH Total Today E78.00 - Pure hypercholesterolemia, unspecified Microalbumin, Random (w Creat) Today E11.65 - Type 2 diabetes mellitus with hyperglycemia, E78.00 - Pure hypercholesterolemia, unspecified Pneumococcal 20 Immunization Today Z23 - Encounter for immunization Complete Blood Count Auto Diff Today E78.00 - Pure hypercholesterolemia, unspecified Hemoglobin A1c Today E78.00 - Pure hypercholesterolemia, unspecified Creatinine Urine Today E11.65 - Type 2 diabetes mellitus with hyperglycemia, E78.00 - Pure hypercholesterolemia, unspecified Medications: New pneumoc 20-carol conj-dip cr(PF) 0.5 mL IM ONCE 0.5 mL 0RF Z23 - Encounter for immunization Refilled pravastatin 40 mg PO DAILY 90 tabs 3RF
== END 2024-03-16 16:10 | disposition home or self-care (01) ==
PROVIDERS: PCP Internal Medicine; Visit Provider Internal Medicine
DX: I10 Essential (primary) hypertension (principal); E78.00 Pure hypercholesterolemia, unspecified; E11.65 Type 2 diabetes mellitus with hyperglycemia; I48.0 Paroxysmal atrial fibrillation; Z90.12 Acquired absence of left breast and nipple; M81.0 Age-related osteoporosis without current pathological fracture; Z23 Encounter for immunization

== ENCOUNTER 2024-04-16 09:23 | Outpatient (REF) | payer MEDICARE, SELFPAY ==
--- NOTE | ~2024-04-16 | MM_ITS ---
EXAMINATION: MM SCREENING DIGITAL BREAST TOMOSYNTHESIS, RIGHT CLINICAL INFORMATION: Screening. Asymptomatic. Left mastectomy. COMPARISON: Mammography: This study is compared with prior exams dating back to TECHNIQUE: Digital breast tomosynthesis is performed in both the craniocaudal and mediolateral oblique views along with computer-aided detection (CAD). Synthesized 2D images are generated from the tomosynthesis. FINDINGS: There are scattered areas of fibroglandular density (ACR BI-RADS breast composition Category b). There are no significant masses, abnormal calcifications, or other abnormalities. MM/MM tomosynthesis screening RT IMPRESSION: No mammographic evidence of malignancy. ASSESSMENT: BI-RADS BI-RADS 1 - Negative RECOMMENDATION: Routine annual mammography screening. 1 year F/U This examination should not preclude the clinical evaluation of a suspicious palpable abnormality. This patient's information was entered into a reminder system with a target due date for their next mammogram. Electronically signed by: Sudha Viera DO 04/16/2024 10:07 AM KIMBERLY
== END 2024-04-16 09:24 | disposition home or self-care (01) ==
LOC: HO.MAMMO 09:23
PROVIDERS: PCP Internal Medicine; Visit Provider Internal Medicine
DX: Z12.31 Encounter for screening mammogram for malignant neoplasm of breast (principal)
CPT/HCPCS: 77063; 77067

== ENCOUNTER → 2024-04-16 09:45 | Outpatient (BNV) | payer MEDICARE, SELFPAY | PROVIDERS: PCP Internal Medicine; Visit Provider Internal Medicine | DX: Z12.31 Encounter for screening mammogram for malignant neoplasm of breast (principal); R22.32 Localized swelling, mass and lump, left upper limb | CPT/HCPCS: 77063; 77067; 93971 ==

== ENCOUNTER 2024-04-16 11:23 | Outpatient (REF) | payer MEDICARE, SELFPAY ==
--- NOTE | ~2024-04-16 | US_ITS ---
CLINICAL HISTORY: Left upper extremity edema Venous duplex ultrasound left upper extremity Comparison: None Findings: Accessible deep venous segments are fully compressible with normal Doppler color flow and spectral tracings. Mild subcutaneous edema noted. IMPRESSION: 1. Negative for left upper extremity deep vein thrombosis. This document has been electronically signed by: Dandy Fried MD on 04/16/2024 12:25:29
== END 2024-04-16 11:24 | disposition home or self-care (01) ==
LOC: HO.US 11:23
PROVIDERS: PCP Internal Medicine; Visit Provider Internal Medicine Medical Oncology
DX: R60.0 Localized edema (principal)
CPT/HCPCS: 93971

== ENCOUNTER 2024-04-27 12:52 | Outpatient (AMB) | payer MEDICARE, SELFPAY ==
[2024-04-27 13:28] VITALS: BP 120/60; PULSE 66; BMI 23.0
--- NOTE | 2024-04-27 13:28 | A.OFFVIS_ITS ---
Vital Signs 04/27/24 13:28 Height 5 ft 3 in Weight 130 lb 1.164 oz BMI 23.0 BP 120/60 Blood Pressure Location Lt brachial Position Sitting Pulse 66 Pulse Source Monitor Intake Visit Reasons: 6m follow up/device ck Allergies latex [LATEX] Allergy (Intermediate, Verified 03/16/24 15:37) RASH WITH CONTACT Medication List - Last Reconciled 04/27/24 by David Ellis MD blood sugar diagnostic As directed check the blood sugar once a day blood-glucose meter (CytRx Ultra2 Meter kit) As directed check the blood sugar once a day diltiazem HCl ER 240 mg PO QAM flash glucose scanning reader (Avtal24Style Jesse 2 [place]oven) USE DIRECTED flash glucose sensor (Avtal24Style Jesse 2 Sensor kit) USE DIRECTED lancets (CytRx SureSoft Lancing Devices) As directed check the blood sugar once a day lancets (CytRx Delica Plus Lancet) As directed lisinopril 20 mg PO DAILY 30 days metoprolol tartrate 50 mg PO BID omeprazole 40 mg PO DAILY pravastatin 40 mg PO DAILY rivaroxaban (Xarelto) 20 mg PO DAILY HPI Comments Details: Lupe returns for follow-up. She is under treatment for breast cancer. She had a left-sided pacemaker that was in the way of radiation and after discussion with Radiation Oncology, she underwent a leadless pacemaker. The RV and RA leads were capped. The old dual-chamber pacemaker generator was explanted. Since last seen, she states she feels good. No new concerns. [facility], LATER [facility] Medical History Colon cancer screening Hyperglycemia Port-A-Cath in place On beta harley at home Abnormal ultrasound of breast Screening for breast cancer PUD (peptic ulcer disease) Essential hypertension PAF (paroxysmal atrial fibrillation) Vertigo Pacemaker (~2008) GERD (gastroesophageal reflux disease) Hypercholesteremia Surgical History Hx of colonoscopy History of left mastectomy (07/04/22) History of lumpectomy of left breast History of appendectomy History of permanent cardiac pacemaker placement History of cholecystectomy History of tubal ligation Family History Mother No problems noted. Father No problems noted. 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 Cognitive needs: No Hearing needs: No Vision needs: Yes Review of Systems Const Denies weakness ENT Denies dizziness Card Denies chest pain, Denies chest pain with activity, Denies syncope, Denies rapid heart rate, Denies pedal edema, Denies edema, Denies leg edema, Denies lightheadedness, Denies palpitations, Denies dyspnea, Denies dyspnea on exertion and Denies orthopnea Resp Denies cough, Denies dyspnea and Denies dyspnea on exertion GI Denies hematochezia and Denies change in stool character Musc Denies abnormal gait, Denies muscle cramps, Denies muscle weakness, Denies numbness, Denies radiating pain into limb and Denies tingling Neuro Denies abnormal gait, Denies dizziness, Denies syncope, Denies numbness, Denies tingling and Denies weakness Endo Denies palpitations Physical Exam Vital Signs: Last Vital Signs Pulse 66 04/27/24 13:28 BP 120/60 04/27/24 13:28 BMI result Body Mass Index 23.0 Const General: comfortable and no acute distress Orientation/consciousness: patient oriented x3 HEENT Other: Unremarkable Head: Yes normal to inspection Neck Neck: Yes normal visual inspection Chest Chest palpation & inspection: normal inspection of the chest Resp Auscultation: clear to auscultation bilaterally Cardio Palpation: normal PMI Heart sounds: S1 normal heart sound present, S2 normal heart sound present, no gallops, no murmurs and no rubs GI Palpation (GI): Soft to palpation Back/Spine/Pelvis Other: unremarkable Skin General skin exam: no rashes or lesions noted Neuro General: patient oriented x3 Extrem General: Yes normal to inspection Psych Mental Status: mental status grossly normal Office Procedures Cardiac Device Check Cardiac Device Check Details: Pacemaker interrogated today. Programmed VVIR. Battery status 8-9 years. Normal lead parameters. Underlying rhythm is atrial fibrillation at 52/Min. Ventricular pacing 94%. Overall, normal device function. 20868-IZ Cardiac Device Check, leadless/single lead pacemaker Procedure code (CPT) selection complete EKG Details: EKG shows atrial fibrillation rate of 66/Min. Ventricular pacing noted. 66630-Qamhzhakkhkalnjta, Complete Assessment & Plan Assessment & Plan (1) Persistent atrial fibrillation: Code(s): I48.19 - Other persistent atrial fibrillation Category: Medical Plan: Continue diltiazem and metoprolol. Continue Xarelto. (2) Normally functioning cardiac pacemaker present: Code(s): Z95.0 - Presence of cardiac pacemaker Category: Medical Plan: Normal function on interrogation today. Will need to arrange remote monitoring as we have not gotten in the last few transmissions. (3) Essential hypertension: Code(s): I10 - Essential (primary) hypertension Category: Medical Plan: On lisinopril. Stable. Medications: Refilled metoprolol tartrate 50 mg PO BID 180 tabs 3RF L29.9 - Pruritus, unspecified Coding Level of Care Code Est Pt Level 4 (81068) Diagnoses Persistent atrial fibrillation I48.19 Normally functioning cardiac pacemaker present Z95.0 Essential hypertension I10 CPT Codes Cardiac Device Check - Cardiac Device 1: 78411-XS Cardiac Device Check, leadless/single lead pacemaker ([id number]) EKG - CPT: 88279-Hrnrgrwjumjcerkgk, Complete ([id number])
== END 2024-04-27 13:49 | disposition home or self-care (01) ==
PROVIDERS: PCP Internal Medicine; Visit Provider Internal Medicine
DX: I48.19 Other persistent atrial fibrillation (principal); Z95.0 Presence of cardiac pacemaker; I10 Essential (primary) hypertension
CPT/HCPCS: 93010; 93279; 99214

== ENCOUNTER → 2024-04-27 12:52 | Outpatient (BNVA) | payer MEDICARE, SELFPAY | PROVIDERS: PCP Internal Medicine; Visit Provider Internal Medicine | DX: I48.19 Other persistent atrial fibrillation (principal); I10 Essential (primary) hypertension; L29.9 Pruritus, unspecified; Z95.0 Presence of cardiac pacemaker | CPT/HCPCS: 93005; 99212 ==

== ENCOUNTER → 2024-06-08 23:59 | Outpatient (BNV) | payer MEDICARE, SELFPAY ==
--- NOTE | 2024-06-17 21:18 | A.OFFVIS_ITS ---
Intake Visit Reasons: Remote device check- Medtronic Allergies latex [LATEX] Allergy (Intermediate, Verified 03/16/24 15:37) RASH WITH CONTACT [facility] Medical History Colon cancer screening Hyperglycemia Port-A-Cath in place On beta harley at home Abnormal ultrasound of breast Screening for breast cancer PUD (peptic ulcer disease) Essential hypertension PAF (paroxysmal atrial fibrillation) Vertigo Pacemaker (~2008) GERD (gastroesophageal reflux disease) Hypercholesteremia Surgical History Hx of colonoscopy History of left mastectomy (07/04/22) History of lumpectomy of left breast History of appendectomy History of permanent cardiac pacemaker placement History of cholecystectomy History of tubal ligation Family History Mother No problems noted. Father No problems noted. 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 Overall normal device function. [id number]-Iexigr Cardiac Device Interrogation, pacemaker Procedure code (CPT) selection complete Assessment & Plan Assessment & Plan (1) Pacemaker: Onset Date: ~2008 Comment: Medtronic- placed 2008, generator change 2019 Code(s): Z95.0 - Presence of cardiac pacemaker Category: Medical (2) PAF (paroxysmal atrial fibrillation): Code(s): I48.0 - Paroxysmal atrial fibrillation Category: Medical Plan x Coding Level of Care Code Procedure Only Diagnoses Pacemaker Z95.0 PAF (paroxysmal atrial fibrillation) I48.0 CPT Codes Cardiac Device Check - Cardiac Device 12: 86154-Jmelhe Cardiac Device Interrogation, pacemaker ([id number])
== END ==
PROVIDERS: PCP Internal Medicine; Visit Provider Internal Medicine
DX: I48.0 Paroxysmal atrial fibrillation (principal); Z95.0 Presence of cardiac pacemaker
CPT/HCPCS: 93294

== ENCOUNTER 2024-06-18 10:05 | Outpatient (AMB) | payer MEDICARE, SELFPAY ==
[2024-06-18 10:14] VITALS: BP 132/72; PULSE 83; O2SAT 98; BMI 22.5
--- NOTE | 2024-06-18 10:14 | A.OFFPC_ITS ---
Vital Signs 06/18/24 10:14 Height 5 ft 3 in Weight 127 lb BMI 22.5 BP 132/72 Blood Pressure Location Lt brachial Position Sitting Pulse 83 Pulse Source Pulse Oximeter Pulse Oximetry (%) 98 Oxygen Delivery Method Room Air Intake Visit Reasons: DM , HTN Intake Note: Complaining that her left eye is always very tired . Allergies latex [LATEX] Allergy (Intermediate, Verified 06/18/24 10:15) RASH WITH CONTACT Tobacco use date assessed: 06/18/24 Fall risk assessment: No Falls in past year Last assessed Fall Risk: 06/18/24 Dental Screening Dental Screen Date: 06/18/24 Did you have a dental visit in the last 12 months?: No Did you have a dental problem in the last 6 months where you did not have access to dental care?: No Was dental information given to patient?: No PFSH Medical History Colon cancer screening Hyperglycemia Port-A-Cath in place On beta harley at home Abnormal ultrasound of breast Screening for breast cancer PUD (peptic ulcer disease) Essential hypertension PAF (paroxysmal atrial fibrillation) Vertigo Pacemaker (~2008) GERD (gastroesophageal reflux disease) Hypercholesteremia Surgical History Hx of colonoscopy History of left mastectomy (07/04/22) History of lumpectomy of left breast History of appendectomy History of permanent cardiac pacemaker placement History of cholecystectomy History of tubal ligation Family History Mother No problems noted. Father No problems noted. 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 1. Little interest or pleasure in doing things: not at all 2. Feeling down, depressed, or hopeless: not at all 3. Trouble falling or staying asleep, or sleeping too much: not at all 4. Feeling tired or having little energy: not at all 5. Poor appetite or overeating: not at all 6. Feeling bad about yourself - or that you are a failure or have let yourself or your family down: not at all 7. Trouble concentrating on things, such as reading the newspaper or watching television: not at all 8. Moving or speaking so slowly that other people could have noticed. Or the opposite - being so fidgety or restless that you have been moving around a lot more than usual: not at all 9. Thoughts that you would be better off or of hurting yourself in some way: not at all Total score: 0 Depression Screening Interpretation: Negative Depression Screening Done: Yes Source: Developed by Drs. Nahum Britton, Asetr Nguyen, Jl Verdin and colleagues, with an educational jessica from [employer]. Thrive Questionnaire Date Thrive assessed: 06/18/24 I am a: Patient What is your living situation today?: I have a steady place to live Within the past 12 months, did the food you bought not last and you didn't have the money to get more?: Never true Within the past 12 months, did you worry whether your food would run out before you got money to buy more?: Never true Do you have trouble paying for medicines?: No Do you have trouble getting transportation to medical appointments?: No Do you have trouble paying your heating and electricity bill?: No Do you have trouble taking care of your child, family member or friend?: No Do you have trouble with day-to-day activities such as bathing, preparing meals, shopping, managing finances, etc.?: No Are you currently unemployed and looking for a job?: No Are you interested in more education?: No Currently or been in a relationship where the following occur: No concerns reported THRIVE Score: 0 AUDIT C Alcohol Use Questionnaire (AUDIT-C) 1. How often do you have a drink containing alcohol?: Never 3. How often do you have six or more drinks on one occasion?: Never Total Score: 0 JOSE-7 AMB Questionnaire JOSE-7 Date JOSE - 7 assessed: 06/18/24 Feeling nervous, anxious, or on edge: 0 = Not at all Not being able to stop or control worryin = Not at all Worrying too much about different things: 0 = Not at all Trouble relaxin = Not at all Being so restless that it is hard to sit still: 0 = Not at all Becoming easily annoyed or irritable: 0 = Not at all Feeling afraid as if something awful might happen: 0 = Not at all Total JOSE-7 score (0-4 normal; 5-9 mild; 10-14 moderate; 15-21 severe): 0 Source: Developed by Drs. Nahum Britton, Aster Nguyen, Jl Verdin and colleagues, with an educational jessica from [employer]. Physical exam (Primary Care) Vital Signs: Last Vital Signs Pulse 83 06/18/24 10:14 BP 132/72 06/18/24 10:14 Pulse Ox 98 06/18/24 10:14 Oxygen Delivery Method Room Air 06/18/24 10:14 BMI result Body Mass Index 22.5 Tobacco/Smoking Status: Tobacco use Status Tobacco use date assessed 06/18/24 06/18/24 10:16 Patient Tobacco Use Status Never used Tobacco 06/18/24 10:16 Tobacco use type Cigarette 06/18/24 10:16 e-Cigarette/Vaping Use Never Used 06/18/24 10:16 PHQ-9: PHQ-9 Score PHQ-9: Total score 0 06/18/24 11:31 Depression Screening Interpretation: Negative Thrive Assessment: Date of Thrive Assessment Date Thrive assessed 06/18/24 06/18/24 10:16 Currently or been in a relationship where the following occur: No concerns reported Const General: alert; No acute distress Eyes Conjunctivae: conjunctivae normal Resp Auscultation: clear to auscultation bilaterally Cardio Rate: regular rate Rhythm: regular rhythm GI Inspection: Yes normal to inspection Extrem General: Yes normal to inspection and No edema Results AMB Hemoglobin A1c AMB Hemoglobin A1c 6.2 % Last Edit by Felicia Teixeira CMA on 06/18/24 11 :02 Results Reviewed Results Reviewed: Laboratory Last Values Hgb A1c (Clinic) 6.2 % (4.0-6.0) H 06/18/24 10:17 Coding Level of Care Code Est Pt Level 4 (52958) Complex EM visit Add On G2211 Diagnoses PAF (paroxysmal atrial fibrillation) I48.0 Invasive ductal carcinoma of left breast C50.912 Age-related osteoporosis without current pathological fracture M81.0 Type 2 diabetes mellitus with hyperglycemia E11.65 Essential hypertension I10 Hypercholesteremia E78.00 GERD (gastroesophageal reflux disease) K21.9 Assessment & Plan Assessment & Plan (1) PAF (paroxysmal atrial fibrillation): Code(s): I48.0 - Paroxysmal atrial fibrillation Category: Medical Plan: Patient follows up with Cardiology continue with anticoagulation with Xarelto (2) Invasive ductal carcinoma of left breast: Comment: Status post mastectomy Code(s): C50.912 - Malignant neoplasm of unspecified site of left female breast Category: Medical Plan: Patient follows up with Hematology-Oncology and chemo and radiation December 2022 (3) Age-related osteoporosis without current pathological fracture: Code(s): M81.0 - Age-related osteoporosis without current pathological fracture Category: Medical Plan: Up-to-date with bone density discussed about treatment (4) Type 2 diabetes mellitus with hyperglycemia: Code(s): E11.65 - Type 2 diabetes mellitus with hyperglycemia Category: Medical Plan: Decrease the amount of carbohydrate intake, pasta, bread, rice and potatoes are all sugar and that is aside from all the sweet stuff, remember that fruits are good but they are Sweet also. Hemoglobin A1c goal of less than 7.0 diet controlled (5) Essential hypertension: Code(s): I10 - Essential (primary) hypertension Category: Medical Plan: Continue with blood pressure medication. Decrease salt intake and exercise on diltiazem 240 mg once a day lisinopril 20 mg once a day metoprolol 50 mg twice a day (6) Hypercholesteremia: Code(s): E78.00 - Pure hypercholesterolemia, unspecified Category: Medical Plan: Avoid fried foods, chicken skin, eggs, butter margarine, pastries and meat. Be it pork or beef they have a lot of cholesterol 2021 last tested will need blood work (7) GERD (gastroesophageal reflux disease): Code(s): K21.9 - Gastro-esophageal reflux disease without esophagitis Category: Medical Plan: Avoid the foods that causes that usually spicy foods, tomato products, juices, coffee, soda and foods that your sensitive to. After eating do not lie down, allow 3-4 hours before in lie down. And keep the head of bed above 30 degrees to avoid the acid from going up. Plan History of Present Illness The patient is a 68-year-old female presenting with a follow-up for several chronic conditions and cancer history. She has been managing her chronic diseases effectively but shows some concern about the progression of diabetes, as indicated by a slight increase in Hemoglobin A1c. Her bone health has been a significant issue, with documented osteoporosis, which increases her fracture risk. The patient prefers non-pharmacological interventions and follows a dietary plan to supplement bone health with adequate calcium and Vitamin D and engage in regular physical exercise. The patient's cancer follow-up is due for a status review with recent imaging done, given her prior lumpectomy and therapies. Health Maintenance - Mammogram: Completed in March 2024; up to date. - Colonoscopy: Completed in July 2023; up to date. - Bone Density: Last performed in October 2023, indicating osteoporosis. - Blood Work: Last completed February 2024, showing normal blood count and electrolytes. - Diabetes Management: Blood sugar was 143, Hemoglobin A1c at 6.2 (goal is <7.0). - Cardiovascular Monitoring: Regular follow-up with cardiology for atrial fibrillation and pacemaker functionality. - Blood Pressure Management: Medications include diltiazem, lisinopril, and metoprolol. - Cholesterol Monitoring: Last test conducted in 2021; patient informed needs updates. - Osteoporosis Management: Encouraged calcium-rich diet, Vitamin D supplementation, and exercise. Social History - Exercise: Engages in daily exercise through stair climbing. - Diet: Reports a high-calcium diet with fish consumption, avoids excessive red meat, and is cautious about cholesterol intake. - Social Activities: Goes to Mosque gatherings with her weekly. - Lifestyle: Conscious of dietary choices, limiting dairy due to understood concerns with breast cancer history from lay opinions. Review of Systems - Musculoskeletal: Reports feeling of eye discomfort. - Endocrine: Reports ongoing monitoring and management of blood glucose. Physical Exam Results - Labs: February 2024, normal blood count and electrolytes; creatinine 1.09. - Test Results: - Hemoglobin A1c: 6.2% - Cholesterol: Last tested in 2021, result 95. - Imaging: - Ultrasound of left upper extremity: Negative for DVT. - Screening: - Mammogram: Up to date - Colonoscopy: Up to date - Bone Density: Indicates osteoporosis Plan 1. 0. For osteoporosis, I recommended maintaining a high-calcium and Vitamin D- rich diet alongside her current physical activity routine. Hematology and oncology follow-ups are maintained post-lumpectomy and therapy. Cholesterol needs retesting, last evaluated in 2021. An alignment with quarterly reviews and lab tests is in place to systematically address any developments in her chronic health conditions.: Patient was informed and verbally consented to the use of an ambient scribe for clinic note documentation during this visit. Discussion Notes I discussed with the patient the importance of ongoing monitoring for her history of breast cancer and complete adherence to mammography schedules. We emphasized the need for regular cardiovascular reviews, particularly considering her atrial fibrillation and associated anticoagulation therapy. I addressed the dietary habits ensuring they support her management of diabetes, with emphasis on maintaining Hemoglobin A1c below 7.0 through balanced nutrition and exercise. Recognizing osteoporosis, I delineated the cruciality of Vitamin D and calcium in her diet, pointing out the potential benefits and patient decision against medication in favor of lifestyle changes. The patient declined pharmacological treatment for osteoporosis after a discussion. We consented to regular fasting lab work for her cholesterol and glucose, along with a standard regimen review within four months. Patient appreciated clarity on misconceptions concerning dairy intake and its unconfirmed relation to breast cancer recurrence. Patient Instructions - Continue all prescribed medications as directed for blood pressure, atrial fibrillation, and other conditions. - Maintain a calcium-rich diet and keep up with Vitamin D supplementation as discussed. - Increase physical activity as tolerated, focusing on exercises that strengthen bone health. - Follow upcoming scheduled blood tests, ensuring to fast beforehand. - Monitor blood glucose levels regularly and maintain a diet to keep Hemoglobin A1c below 7.0. - Schedule and complete periodic cholesterol testing within the next healthcare visit. - Attend all scheduled follow-up appointments, especially with oncology and cardiology, to maintain monitoring standards. - Reassess osteoporosis management and consider future bone density testing as appropriate. Orders: Orders AMB Hemoglobin A1c Today Z13.9 - Encounter for screening, unspecified Vitamin D 25-OH Total Today C50.912 - Malignant neoplasm of unspecified site of left female breast
== END 2024-06-18 11:50 | disposition home or self-care (01) ==
PROVIDERS: PCP Internal Medicine; Visit Provider Internal Medicine
DX: I48.0 Paroxysmal atrial fibrillation (principal); C50.912 Malignant neoplasm of unspecified site of left female breast; M81.0 Age-related osteoporosis without current pathological fracture; E11.65 Type 2 diabetes mellitus with hyperglycemia; I10 Essential (primary) hypertension; E78.00 Pure hypercholesterolemia, unspecified; K21.9 Gastro-esophageal reflux disease without esophagitis; Z13.9 Encounter for screening, unspecified

== ENCOUNTER → 2024-06-18 10:05 | Outpatient (BNVA) | payer MEDICARE, SELFPAY | PROVIDERS: PCP Internal Medicine; Visit Provider Internal Medicine | DX: I48.0 Paroxysmal atrial fibrillation (principal); M81.0 Age-related osteoporosis without current pathological fracture; E11.65 Type 2 diabetes mellitus with hyperglycemia; E78.00 Pure hypercholesterolemia, unspecified; I10 Essential (primary) hypertension; K21.9 Gastro-esophageal reflux disease without esophagitis | CPT/HCPCS: 83036; 99212 ==

== ENCOUNTER 2024-07-06 08:02 | Outpatient (REF) | payer MEDICARE, SELFPAY ==
[2024-07-06 08:26] LABS: MANUAL DIFF FLAG NO
[2024-07-06 08:59] LABS: Basophils Percent Auto 0.5 % (0-2); Eosinophils Absolute Auto 0.2 X10*3/uL (0.0-0.4); Eosinophils Percent Auto 3.8 % (0-4); Hematocrit 39.2 % (37.0-47.0); Hemoglobin 12.9 g/dl (12.0-16.0); Imm Gran Abs Auto 0.03 X10*3/uL (0.00-0.03); Imm Gran Pct Auto 0.5 % (0.0-0.4); Lymphocytes Absolute Auto 1.7 X10*3/uL (1.2-4.9); Lymphocytes Percent Auto 26.8 % (20-40); Mean Corpuscular HGB Conc 32.9 g/dl (31.0-35.0); Mean Corpuscular Hemoglobin 29.7 pg (27.0-33.0); Mean Corpuscular Volume 90.1 fL (80.0-98.0); Mean Platelet Volume 9.2 fL (9.4-12.3); Monocytes Absolute Auto 0.5 X10*3/uL (0.1-1.2); Monocytes Percent Auto 7.6 % (2-11); Neutrophils Absolute Auto 3.9 x10*3/uL (2.0-8.3); Neutrophils Percent Auto 60.8 % (45-73); Platelet Count 194 X10*3/uL (160-400); Red Blood Count 4.35 X10*6/uL (4.20-5.50); Red Cell Distribution Width 12.4 % (11.0-16.0); White Blood Count 6.4 X10*3/uL (4.8-10.8)
[2024-07-06 09:13] LABS: Estimated Average Glucose 128 mg/dL; Hemoglobin A1C 143.4738 umol/L; Hemoglobin A1c % 6.1 % (<6.0); Total Hemoglobin (HGBA1C) 3357.6557 umol/L
[2024-07-06 09:55] LABS: Alanine Aminotransferase 11 U/L (0-31); Albumin Level 3.9 g/dL (3.5-5.0); Alkaline Phosphatase 108 U/L (39-117); Anion Gap 12 (12-20); Aspartate Amino Transferase 21 U/L (5-31); Bilirubin Total 0.3 mg/dL (0.0-1.0); Blood Urea Nitrogen 22 mg/dL (9-16); Calcium 9.4 mg/dL (8.4-10.2); Carbon Dioxide 23 mmol/L (22-29); Chloride 108 mmol/L (96-108); Cholesterol 149 mg/dL (<200); Estimated Glomerular Filt Rate 50; Glucose Random 116 mg/dL (60-115); HDL Cholesterol 39 mg/dL (>40); LDL Cholesterol Calculated 80 mg/dL (<100); Potassium 4.3 mmol/L (3.3-5.1); Sodium 139 mmol/L (135-145); Total Protein 7.8 g/dL (6.5-8.0); Triglycerides 153 mg/dL (<150)
[2024-07-06 10:06] LABS: Free T4 (Free Thyroxine) 0.95 ng/dL (0.71-1.85); Thyroid Stimulating Hormone 1.72 uIU/mL (0.32-4.0); Vitamin D 25-OH Total 42.3 ng/mL (>30)
[2024-07-06 10:13] LABS: Vitamin B12 > 2000 pg/mL (200-900)
[2024-07-06 10:35] LABS: Creatinine Urine 87.01 mg/dL; Microalbum/Creatinine Ratio Ur 6.8 ug/mg cr (<30)
== END 2024-07-06 08:03 | disposition home or self-care (01) ==
LOC: HO.LAB 08:02
PROVIDERS: PCP Internal Medicine; Visit Provider Internal Medicine
DX: E78.00 Pure hypercholesterolemia, unspecified (principal); Z13.1 Encounter for screening for diabetes mellitus
CPT/HCPCS: 36415; 80053; 80061; 82043; 82306; 82570; 82607; 82746; 83036; 84439; 84443; 85025

== ENCOUNTER 2024-08-30 22:25 | Emergency (ER) | payer MEDICARE, SELFPAY ==
--- NOTE | ~2024-08-30 | CT_ITS ---
CLINICAL HISTORY: anemia abn LFTs elev alk phos CT abdomen and pelvis with contrast Comparison: None Findings: No consolidation or effusion. Gallbladder is surgically absent. Liver is mildly enlarged. No focal hepatic lesion identified. Spleen is mildly enlarged. Visualized pancreas is unremarkable. Adrenal glands are within normal limits. Kidneys enhance symmetrically and are non hydronephrotic. Right renal cyst measures 2.1 cm. No bowel obstruction, pneumoperitoneum, or pneumatosis. The appendix is not visualized. Prominent veins noted in the left adnexal region. The bones are intact. Atherosclerotic vascular calcifications are present. IMPRESSION: Hepatosplenomegaly. Prominent left adnexal vasculature, a finding that can be seen in the setting of pelvic congestion. Please correlate clinically. This document has been electronically signed by: Sebastian Garg MD, PHD on 08/31/2024 05:05:41
--- NOTE | ~2024-08-30 | XR_ITS ---
CLINICAL HISTORY: cough sob 2 view chest x-ray Comparison: None Findings: Consolidation with masslike appearance measures 6.5 cm in the right upper lobe. Right-sided chest port is in place. Cardiac leads are abandoned. These are considered not safe for MRI. Additional cardiac opacities noted. Calcifications include the aortic arch. No pneumothorax or pleural effusion. Degenerative changes include imaged shoulders with mild to moderate superior subluxation of the right glenohumeral joint. Mild/minimal vertebral height losses are age indeterminate by radiographs. Surgical clips noted in the imaged abdomen. Likely previous left mastectomy change. IMPRESSION: 1. Masslike consolidation in the right upper lobe. Differential considerations include neoplasm and pneumonia. Attention on follow-up may be informative. 2. Right-sided chest port is in place. 3. Abandoned cardiac leads. These are considered not safe for MRI. This document has been electronically signed by: Nilay Boss MD on 08/31/2024 00:14:41
--- NOTE | ~2024-08-30 | CT_ITS ---
CLINICAL HISTORY: RU lung mass vs infiltrate CT chest without contrast Comparison: None Findings: The heart is normal size. There is mediastinal lymphadenopathy with paratracheal node measuring up to 1.3 cm short axis. Large right upper lobe mass measures 7.9 x 5.8 x 5.2 cm. Mass lesion causes extrinsic narrowing of right upper lobe bronchi. Lesion abuts the major fissure. Scarring is noted in the lingula, likely posttreatment change. Prior left mastectomy noted. The upper abdomen is unremarkable. No acute fractures. Right anterior chest wall Port-A-Cath with distal tip in the cavoatrial junction. IMPRESSION: Large right upper lobe mass measuring 7.9 x 5.8 x 5.2 cm with mediastinal lymphadenopathy. This document has been electronically signed by: Sebastian Garg MD, PHD on 08/31/2024 04:26:58
--- NOTE | ~2024-08-30 | CT_ITS ---
CLINICAL HISTORY: high susp for sig malignancy CT chest with contrast Comparison: CT/SR - CT CHEST WO IV CON - 08/31/24 02:00 EDT Findings: The heart size is normal. 7.9 x 5.8 x 5.2 cm mass in the right upper lobe abutting the major fissure again noted. Mass enhances on postcontrast imaging. Mediastinal lymphadenopathy with right paratracheal node measuring 1.3 cm short axis Left infrahilar node measures up to 1.3 cm short axis. The upper abdomen is unremarkable. No acute fractures. IMPRESSION: Large enhancing mass abutting the major fissure in the right upper lobe, highly concerning for neoplasm. There is associated mediastinal lymphadenopathy. This document has been electronically signed by: Sebastian Garg MD, PHD on 08/31/2024 05:09:45
[2024-08-30 22:39] VITALS: BP 126/44; PULSE 78; RESP 18; TEMP 37.9; O2SAT 99; BMI 22.5
[2024-08-31 00:12] LABS: Influenza A PCR NEGATIVE (Negative); Influenza B PCR NEGATIVE (Negative); Resp Syncy Virus RNA Qual PCR NEGATIVE (Negative); SARS COV2 PCR INHOUSE NEGATIVE (Negative)
[2024-08-31 01:04] VITALS: BP 133/57; PULSE 79; RESP 19; TEMP 37.7; O2SAT 99
--- NOTE | 2024-08-31 01:22 | ED_ITS ---
HPI - General Adult General Chief complaint: Upper Respiratory Symptoms Stated complaint: been flu like for 5 wks/sweating/sob Time Seen by Provider: 08/31/24 01:22 History of Present Illness ED Provider: Teresa ASENCIO narrative: The patient is a 68-year-old woman who has a history of breast cancer for which she has been treated. Her last treatment was about 2 years ago. She still has a Port-A-Cath in place. The patient says that she has had a cough for the last 5 weeks. She feels like she has had a cold for these 5 weeks. Additionally she thinks that she might have had intermittent low-grade fevers and sweats over the last 2 weeks. She has been using [id number] medications without improvement. Today she felt somewhat worse and came to the emergency department. She has not taken her temperature at home in his not able to say if she has definitely had fevers. No abdominal pain. No vomiting although she has had some nausea. She has had some mild shortness of breath. No pain or swelling in her legs. Related Data Home Medications ?Medication ?Instructions ?Recorded ?Confirmed lancets 33 gauge (OneTouch Delica #100 ea 01/02/22 02/06/24 Plus Lancet) Previous Rx's ?Medication ?Instructions ?Recorded blood sugar diagnostic #100 ea 02/23/21 blood-glucose meter (OneTouch #1 ea 02/23/21 Ultra2 Meter kit) lancets 28 gauge (OneTouch #100 ea 02/23/21 [employer]) flash glucose scanning reader #1 ea 03/19/22 (FreeStyle Jesse 2 Carlotta) flash glucose sensor (FreeStyle #6 ea 05/03/22 Jesse 2 Sensor kit) diltiazem HCl 240 mg capsule,24 240 mg PO QAM #90 caps 02/17/24 hr,extended release pravastatin 40 mg tablet 40 mg PO DAILY #90 tabs 03/16/24 metoprolol tartrate 50 mg tablet 50 mg PO BID #180 tabs 04/27/24 rivaroxaban 20 mg tablet (Xarelto) 20 mg PO DAILY #90 tabs 08/06/24 omeprazole 40 mg capsule,delayed 40 mg PO DAILY #90 caps 08/12/24 release lisinopril 20 mg tablet 20 mg PO DAILY 30 days #90 tabs 08/28/24 cefpodoxime 200 mg tablet 200 mg PO BID #14 tabs 08/31/24 Allergies Allergy/AdvReac Type Severity Reaction Status Date / Time latex [LATEX] Allergy Intermediate RASH WITH Verified 08/30/24 22:44 CONTACT Review of Systems 2 Review of Systems: Yes all other systems are reviewed and are negative [facility] Past Medical History Medical History Colon cancer screening Hyperglycemia Port-A-Cath in place On beta harley at home Abnormal ultrasound of breast Screening for breast cancer PUD (peptic ulcer disease) Essential hypertension PAF (paroxysmal atrial fibrillation) Vertigo Pacemaker (~2008) GERD (gastroesophageal reflux disease) Hypercholesteremia Surgical History Hx of colonoscopy History of left mastectomy (07/04/22) History of lumpectomy of left breast History of appendectomy History of permanent cardiac pacemaker placement History of cholecystectomy History of tubal ligation Family History Family History Mother No problems noted. Father No problems noted. 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 Cognitive needs: No Hearing needs: No Vision needs: Yes Physical Exam ED Vital Signs: Vital Signs - 24 hr 08/30/24 22:39 08/31/24 01:04 08/31/24 01:04 Temperature 100.2 F 100 F Pulse Rate 78 79 Respiratory Rate 18 19 Blood Pressure 126/44 L 133/57 L Pulse Oximetry 99 99 99 Oxygen Delivery Method Room Air Room Air Room Air 08/31/24 03:07 08/31/24 04:37 08/31/24 05:20 Temperature 98.1 F Pulse Rate 84 89 83 Respiratory Rate 18 18 16 Blood Pressure 127/52 L 124/54 L 120/62 Pulse Oximetry 100 100 99 Oxygen Delivery Method Room Air Room Air 08/31/24 07:28 Temperature 98.0 F Pulse Rate 83 Respiratory Rate 16 Blood Pressure 120/62 Pulse Oximetry 99 Oxygen Delivery Method BMI result Body Mass Index 22.5 Const Other: The patient is a 68-year-old woman who was awake and alert. She looks mildly unwell but not obviously acutely ill or in distress. Orientation/consciousness: patient oriented x3 HENMT Other: Face is symmetrical, mucous membranes moist. Eyes General: appearance normal, both eyes and all related structures Neck Neck: Yes normal visual inspection, Yes full ROM, Yes no lymphadenopathy and Yes no JVD Resp Effort & Inspection: normal respiratory effort Auscultation: clear to auscultation bilaterally Cardio Rate: regular rate Rhythm: regular rhythm Heart sounds: S1 normal heart sound present and S2 normal heart sound present GI Other: Abdomen is soft and nontender Skin Other: Skin is dry and unremarkable Neuro General: patient oriented x3, moves all extremities, no focal motor deficits and CN's II-XI intact bilaterally Extrem Other: No calf swelling or tenderness, no asymmetry, no tenderness Medications Administered Discontinued Medications Generic Name Dose Route Start Last Admin Trade Name Freq PRN Reason Stop Dose Admin Cefuroxime Axetil 500 mg 08/31/24 07:03 08/31/24 07:18 Cefuroxime Axetil 500 Mg Tablet PO 08/31/24 07:04 500 mg ONCE ONE Administration Sodium Chloride 1,000 mls @ 999 mls/hr 08/31/24 01:30 08/31/24 03:01 Ns IV 08/31/24 02:30 Infused .Q1H1M CAMELIA Infusion Sodium Chloride 1,000 mls @ 999 mls/hr 08/31/24 03:15 08/31/24 04:26 Ns IV 08/31/24 04:15 Infused .Q1H1M CAMELIA Infusion Iohexol 100 ml 08/31/24 03:21 08/31/24 03:21 Iohexol 350 Mg/Ml 100 Ml Infus..Btl IV 08/31/24 03:22 85 ml ONCE ONE Administration Medical Decision Making Medical Decision Making MDM Narrative: The patient is a 68-year-old female who has a history of breast cancer but who has been doing well recently. She says that over the last 5 weeks she has had a very persistent and nagging cough. Over the last 2 weeks she has felt fatigued and weak and may have had low-grade fevers although she did not document any fevers at home. She presented to the emergency room with a temperature of 100.2 degrees but other vital signs were unremarkable. She had a negative viral swab panel but she had a chest x-ray that showed a right upper lobe mass versus infiltrate. Labs were done that show a new anemia with a 4 point drop in her hemoglobin since June. Also a new thrombocytopenia. Additionally she has new LFT abnormalities and an elevated alk phos. A CT scan of the chest, abdomen, and pelvis was done. There is a right upper lobe mass with a associated mediastinal adenopathy suspicious for neoplasm. CT scan of the abdomen and pelvis shows hepatosplenomegaly but no other definite acute findings. My overall impression is that the patient likely has a new neoplasm represented by a right upper lobe lung mass associated with anemia and thrombocytopenia and an elevated alk phos. It is not clear whether this is a primary tumor. Although the radiologist did not comment on the presence or absence of pulmonary embolism the pulmonary artery seemed well opacified and I do not see any suggestion of a pulmonary embolism. Additionally I believe the patient is on rivaroxaban for atrial fibrillation. My overall impression is that the patient is not acutely toxic and does not require hospitalization. I am not certain there is a infectious component to her presentation today but the patient is concerned about that. I reviewed the relevant findings with Dr. Mcgill of Oncology. Arrangements will be made for an outpatient follow up this week so that a biopsy can be arranged. Otherwise I think the patient looks well enough for discharge and management as an outpatient. She was observed for several hours and had essentially stable vital signs. Nevertheless she will be placed on a course of cefpodoxime given her respiratory symptoms. Lab Data 08/31/24 01:46 08/31/24 01:46 Labs: Lab Results 08/30/24 08/31/24 08/31/24 Range/Units 23:30 01:46 03:35 WBC 5.3 (4.8-10.8) X10*3/uL RBC 3.20 L D (4.20-5.50) X10*6/uL Hgb 9.3 L D (12.0-16.0) g/dl Hct 26.9 L D (37.0-47.0) % MCV 84.1 (80.0-98.0) fL MCH 29.1 (27.0-33.0) pg MCHC 34.6 (31.0-35.0) g/dl RDW 14.0 (11.0-16.0) % Plt Count 60 L D (160-400) X10*3/uL MPV 9.3 L (9.4-12.3) fL Immature Gran % (Auto) 0.6 H (0.0-0.4) % Neut % (Auto) 60.1 (45-73) % Lymph % (Auto) 21.8 (20-40) % Heard % (Auto) 17.3 H (2-11) % Eos % (Auto) 0.2 (0-4) % Baso % (Auto) 0.0 (0-2) % Lymph # (Auto) 1.2 (1.2-4.9) X10*3/uL Heard # (Auto) 0.9 (0.1-1.2) X10*3/uL Eos # (Auto) 0.0 (0.0-0.4) X10*3/uL Baso # (Auto) 0.0 (0.0-0.2) X10*3/uL Abs Immat Gran (auto) 0.03 (0.00-0.03) X10*3/uL Absolute Neuts (auto) 3.2 (2.0-8.3) x10*3/uL Absolute Nucleated RBC 0.000 (0.0-0.012) X10*3/uL Nucleated RBC % (auto) 0.0 (0.0-0.2) /100WBC Smear Tech's Comments VERIFIED Sodium 128 L (135-145) mmol/L Potassium 4.2 (3.3-5.1) mmol/L Chloride 99 (96-108) mmol/L Carbon Dioxide 21 L (22-29) mmol/L Anion Gap 12 (12-20) BUN 15 (9-16) mg/dL Creatinine 0.89 (0.5-1.4) mg/dL Estim Creat Clear Calc 49.3 Estimated GFR > 60 Random Glucose 133 H (60-115) mg/dL Lactic Acid 1.5 (0.5-2.0) mmol/L Calcium 9.0 (8.4-10.2) mg/dL Magnesium 1.6 (1.6-2.6) mg/dL Total Bilirubin 1.5 H (0.0-1.0) mg/dL Direct Bilirubin 0.8 H (0.0-0.5) mg/dL AST 97 H (5-31) U/L ALT 95 H (0-31) U/L Alkaline Phosphatase 221 H (39-117) U/L C-Reactive Protein 20.48 H (< or = 0.50) mg/dL Total Protein 7.1 (6.5-8.0) g/dL Albumin 2.8 L (3.5-5.0) g/dL Urine Color Yellow Urine Appearance Clear Urine pH 7.5 (5.0-9.0) Ur Specific [place] <= 1.005 (1.005-1.025) Urine Protein Negative (Neg-Trace) mg/dL Urine Glucose (UA) Negative (Negative) mg/dL Urine Ketones Negative (Negative) mg/dL Urine Blood Negative (Negative) Urine Nitrite Negative (Negative) Ur Leukocyte Esterase Negative (Negative) Urine RBC 0-2 (0-2) /HPF Urine WBC 0-5 (0-5) /HPF Ur Squamous Epith Cells 0-2 (0-2) /HPF Urine Bacteria None Seen (None Seen) Hyaline Casts 0-2 (0-2) /LPF Influenza Type A (PCR) NEGATIVE (Negative) Influenza Type B (PCR) NEGATIVE (Negative) RSV RNA Qual (PCR) NEGATIVE (Negative) SARS-CoV-2 RNA (RT-PCR) NEGATIVE (Negative) Discharge Plan Discharge Clinical Impression: Mass of upper lobe of right lung Patient Disposition: Home, Self-Care Additional Instructions: Your testing today shows that you have a mass in your right upper lobe that may be a new tumor. The exact nature of this tumor is not clear today. I have communicated with Dr. Mcgill. She plans on getting you into the offices week for further testing, especially arranging a biopsy. Please call the office later today if you have not received word from Dr. Mcgill's office. In case there is some degree of an infection associated with this tumor you has been started on antibiotics. Please fill the prescription for cefpodoxime which has been sent to your pharmacy. Take your first dose this evening. Then continue this medication 2 times a day until done. If you feel significantly worse please return to the emergency department. Prescriptions: New cefpodoxime 200 mg tablet 200 mg PO BID Qty: 14 0RF Rx Instructions: must administer with a meal/food No Action (DME) blood-glucose meter [OneTouch Ultra2 Meter] Kit See Rx Instructions .ROUTE .MEDSUPPLY Qty: 1 0RF Rx Instructions: As directed check the blood sugar once a day (DME) blood sugar diagnostic Strip See Rx Instructions .ROUTE .MEDSUPPLY Qty: 100 3RF Rx Instructions: As directed check the blood sugar once a day (DME) lancets [OneTouch SureSoft Lancing Dev] 28 gauge misc See Rx Instructions .Route Qty: 100 3RF Rx Instructions: As directed check the blood sugar once a day (DME) FreeStyle Jesse 2 Carlotta Misc See Rx Instructions .ROUTE .COMPLEX Qty: 1 0RF Dose Instruction: USE DIRECTED Rx Instructions: USE DIRECTED (DME) FreeStyle Jesse 2 Sensor Kit See Rx Instructions .ROUTE .COMPLEX Qty: 6 0RF Dose Instruction: USE DIRECTED Rx Instructions: USE DIRECTED diltiazem HCl 240 mg capsule,extended release 24 hr 240 mg PO QAM Qty: 90 3RF Xarelto 20 mg tablet 20 mg PO DAILY Qty: 90 1RF omeprazole 40 mg capsule,delayed release(DR/EC) 40 mg PO DAILY Qty: 90 0RF lisinopril 20 mg tablet 20 mg PO DAILY 30 Days Qty: 90 2RF (DME) lancets [OneTouch Delica Plus Lancet] 33 gauge misc See Rx Instructions .ROUTE DAILY Qty: 100 Rx Instructions: As directed metoprolol tartrate 50 mg tablet 50 mg PO BID Qty: 180 3RF pravastatin 40 mg tablet 40 mg PO DAILY Qty: 90 3RF Interventions: ED Discharge Assessment Last Done: 08/31/24 07:28 Discharge Date/Time: 08/31/24 07:29 Print Language: Dominican
[2024-08-31 01:53] LABS: Eosinophils Percent Auto 0.2 % (0-4); Hematocrit 26.9 % (37.0-47.0); Hemoglobin 9.3 g/dl (12.0-16.0); Imm Gran Abs Auto 0.03 X10*3/uL (0.00-0.03); Imm Gran Pct Auto 0.6 % (0.0-0.4); Lymphocytes Absolute Auto 1.2 X10*3/uL (1.2-4.9); Lymphocytes Percent Auto 21.8 % (20-40); MANUAL DIFF FLAG SCAN; Mean Corpuscular HGB Conc 34.6 g/dl (31.0-35.0); Mean Corpuscular Hemoglobin 29.1 pg (27.0-33.0); Mean Corpuscular Volume 84.1 fL (80.0-98.0); Mean Platelet Volume 9.3 fL (9.4-12.3); Monocytes Absolute Auto 0.9 X10*3/uL (0.1-1.2); Monocytes Percent Auto 17.3 % (2-11); Neutrophils Absolute Auto 3.2 x10*3/uL (2.0-8.3); Neutrophils Percent Auto 60.1 % (45-73); SCAN SMEAR FLAG 1; White Blood Count 5.3 X10*3/uL (4.8-10.8)
[2024-08-31 01:56] LABS: Platelet Count 60 X10*3/uL (160-400)
[2024-08-31 02:06] LABS: Alanine Aminotransferase 95 U/L (0-31); Albumin Level 2.8 g/dL (3.5-5.0); Alkaline Phosphatase 221 U/L (39-117); Anion Gap 12 (12-20); Aspartate Amino Transferase 97 U/L (5-31); Bilirubin Direct 0.8 mg/dL (0.0-0.5); Bilirubin Total 1.5 mg/dL (0.0-1.0); Blood Urea Nitrogen 15 mg/dL (9-16); C Reactive Protein 20.48 mg/dL (< or = 0.50); Carbon Dioxide 21 mmol/L (22-29); Chloride 99 mmol/L (96-108); Creatinine Clr Calc Pharmacy 49.3; Estimated Glomerular Filt Rate > 60; Glucose Random 133 mg/dL (60-115); Lactic Acid 1.5 mmol/L (0.5-2.0); Magnesium 1.6 mg/dL (1.6-2.6); Potassium 4.2 mmol/L (3.3-5.1); Sodium 128 mmol/L (135-145); Total Protein 7.1 g/dL (6.5-8.0)
[2024-08-31] MEDS: 0.9 % Sodium Chloride 1,000 ML 999 ML IV ×2 (02:13→03:29)
[2024-08-31 02:24] LABS: SLIDE REVIEW VERIFIED
[2024-08-31 03:07] VITALS: BP 127/52; PULSE 84; RESP 18; TEMP 36.7; O2SAT 100
[2024-08-31] MEDS: iohexoL 350 MG/ML 100 ML INFUS..BTL IV (03:21)
[2024-08-31 03:54] LABS: Appearance Urine Clear; Color Urine Yellow; Glucose Urine UA Negative (Negative); Leukocyte Esterase Urine Negative (Negative); Nitrite Urine Negative (Negative); PH 7.5 (5.0-9.0); Specific Gravity - Urine <= 1.005 (1.005-1.025); Urine Blood Negative (Negative); Urine Ketones Negative (Negative); Urine Protein Negative (Neg-Trace)
[2024-08-31 03:59] LABS: Bacteria Urine None Seen (None Seen); Hyaline Casts Urine 0-2 /LPF (0-2); RBC Urine 0-2 /HPF (0-2); Squamous Epithelial Cell Urine 0-2 /HPF (0-2); WBC Urine 0-5 /HPF (0-5)
[2024-08-31 04:37] VITALS: BP 124/54; PULSE 89; RESP 18; O2SAT 100
[2024-08-31 05:20] VITALS: BP 120/62; PULSE 83; RESP 16; O2SAT 99
[2024-08-31] MEDS: cefuroxime axetiL 500 MG TABLET PO (07:18)
[2024-08-31 07:28] VITALS: BP 120/62; PULSE 83; RESP 16; TEMP 36.7; O2SAT 99
== END 2024-08-31 07:29 | disposition home or self-care (01) ==
PROVIDERS: Emergency Provider Emergency Medicine; PCP Internal Medicine
DX: R91.8 Other nonspecific abnormal finding of lung field (principal); R05.9 Cough, unspecified; R06.02 Shortness of breath; R59.0 Localized enlarged lymph nodes; D64.9 Anemia, unspecified; R74.8 Abnormal levels of other serum enzymes; Z85.3 Personal history of malignant neoplasm of breast; Z95.828 Presence of other vascular implants and grafts; Z03.818 Encounter for observation for suspected exposure to other biological agents ruled out; I10 Essential (primary) hypertension; E78.00 Pure hypercholesterolemia, unspecified; R00.1 Bradycardia, unspecified; I48.0 Paroxysmal atrial fibrillation; Z95.0 Presence of cardiac pacemaker; Z90.12 Acquired absence of left breast and nipple; Z79.02 Long term (current) use of antithrombotics/antiplatelets; Z79.01 Long term (current) use of anticoagulants
CPT/HCPCS: 0241U; 36415; 71046; 71250; 71260; 74177; 80048; 80076; 81001; 83605; 83735; 85025; 86140; 87040; 99285; Q9967

== ENCOUNTER → 2024-08-30 22:38 | Outpatient (BNV) | payer MEDICARE, SELFPAY | PROVIDERS: PCP Internal Medicine; Visit Provider Radiology Neuroradiology | DX: R91.8 Other nonspecific abnormal finding of lung field (principal) | CPT/HCPCS: 71046 ==

== ENCOUNTER → 2024-08-31 01:42 | Outpatient (BNV) | payer MEDICARE, SELFPAY | PROVIDERS: Emergency Provider Emergency Medicine; PCP Internal Medicine; Visit Provider General Practice | DX: R16.2 Hepatomegaly with splenomegaly, not elsewhere classified (principal); N94.89 Other specified conditions associated with female genital organs and menstrual cycle; R91.8 Other nonspecific abnormal finding of lung field; R59.0 Localized enlarged lymph nodes | CPT/HCPCS: 71250; 71260; 74177 ==

== ENCOUNTER 2024-09-03 09:21 | Emergency (ER) | payer MEDICARE, SELFPAY ==
--- NOTE | ~2024-09-03 | XR_ITS ---
EXAMINATION: XR CHEST CLINICAL INFORMATION: CP COMPARISON: 08/30/2024. CT chest 08/31/2024. TECHNIQUE: 2 views of the chest were obtained. FINDINGS: Left-sided chest port is again noted in place, with tip in the mid SVC. There are abandoned chest leads extending into the right atrium and right ventricle. Cardiac monitoring device noted. The cardiac, hilar, and mediastinal contours are normal. Lungs demonstrate a right upper lobe lobular opacity, likely mass, contiguous with the superior right hilum and right mediastinum. The left lung is clear. There is no pneumothorax or pleural effusion. There is no focal osseous or soft tissue abnormality. Cholecystectomy clips noted. XR/XR chest 2V IMPRESSION: 1. Redemonstration of right upper lobe mass. 2. Left lung is clear. No effusions. 3. Right chest port in good position. 4. Abandoned left-sided pacemaker leads. Electronically signed by: Minor Sim MD 09/03/2024 10:25 AM EDT
--- NOTE | ~2024-09-03 | CT_ITS ---
EXAMINATION: CT HEAD WITH/WITHOUT CONTRAST CLINICAL INFORMATION: Headache, metastatic cancer DLP: 1254 mGY*cm COMPARISON: July 09, 2022 TECHNIQUE: Contiguous axial imaging was performed from the skull base to vertex before and after the administration of 85 mL of Omnipaque [address] examination was performed using dose optimization techniques as appropriate, variously including the following: *Automated exposure control *Adjustment of mA and/or kV according to patient size (this includes techniques or standardized protocols for targeted exams where dose is matched to indication/reason for exam; i.e. extremities or head) *Use of iterative reconstruction technique FINDINGS: There is no acute ischemic change. There is no intracranial hemorrhage. There is new white matter hypodensities right frontal lobe. This is adjacent to a ring-enhancing lesion 10 mm in diameter projecting into the subacromial space resulting in subtle mass effect without midline shift. Basal cisterns and ventricles are within normal limits for age/cerebral volume. Orbits are symmetrical and unremarkable. Paranasal sinuses and mastoid air cells are pneumatized. There are no bony abnormalities. There is enhancement of the major intracranial vessels. CT/CT head/brain wo/w IV con IMPRESSION: There is a 10 mm ring-enhancing lesion likely in the subacromial space of the right frontal lobe with adjacent vasogenic edema involving white matter concerning for metastatic disease, other etiologies such as infection is not ruled out. Electronically signed by: Otf Haji MD 09/03/2024 01:59 PM EDT
[2024-09-03 09:33] VITALS: BP 110/70; BP 123/46; PULSE 62; PULSE 70; RESP 18; TEMP 36.2; O2SAT 97; BMI 23.1
--- NOTE | 2024-09-03 09:36 | ECG_ITS ---
Test Reason : cp Blood Pressure : */* mmHG Vent. Rate : 65 BPM Atrial Rate : * BPM P-R Int : * ms QRS Dur : 84 ms QT Int : 454 ms P-R-T Axes : * 17 86 degrees QTcB Int : 472 ms Atrial fibrillation with occasional ventricular-paced complexes Minimal voltage criteria for LVH, may be normal variant ( Boyce product ) T wave abnormality, consider anterolateral ischemia Prolonged QT Abnormal ECG When compared with ECG of 18-Jul-2023 08:43, Vent. rate has increased by 5 bpm Referred By: Alicia Maldonado Electronically Signed By: Toribio Lau
--- NOTE | 2024-09-03 09:36 | ED_ITS ---
HPI - Chest Pain General Chief Complaint: General Medical Stated Complaint: CHEST PAIN Time Seen by Provider: 09/03/24 09:36 Source: patient and RN notes reviewed Mode of arrival: ambulatory Limitations: no limitations History of Present Illness ED Provider: Alicia Maldonado PA-C HPI narrative: This is a 68-year-old female, with a past medical history of with invasive left breast invasive ductal carcinoma currently followed by Dr. Lynn not on chemotherapy or radiation, history of paroxysmal atrial fibrillation on eliquis, with intermittent sick sinus syndrome and high degree AV block, pacemaker placement 09/2022, hypertension coming to the emergency department via EMS from [facility]. Patient was initially brought to [facility] due to chest pain. Patient reports that over the last several months she has been feeling short of breath, and has had a dry cough for the last 5 weeks. Patient was evaluated here in the emergency department on August 31, 2024 where she was unfortunately diagnosed with a mass of the upper lobe of the right lung, she was placed on cefpodoxime due to respiratory symptoms that she was experiencing. She continue to take this however states that she then developed nausea and vomiting. She states that she has had subjective fevers and chills. Denies hematemesis. She describes the chest pain is intermittent, reports substernal pain, waxing and waning in severity. She states that she called the ambulance however the cotton stomper brought her to [facility] at 1:00AM this morning instead of [place] despite patient wanting to come here for further evaluation. While she was at [facility] her vital signs within normal limits, they obtain labs were which revealed a hemoglobin of 8.9, platelets of 116, sodium of 121. They did perform a CTA which revealed no pulmonary embolism, there is a large right upper lung mass with concern. She did receive a dose of IV antibiotics as well as a L of IV fluids. 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 Patient patient states that she currently is feeling okay, feeling tired, having intermittent chest discomfort. No other complaints or concerns at this time. MD complaint: chest pain Onset: after eating Pain location: substernal Pain radiation: none Severity: mild Quality: aching Relieving factors: nothing Exacerbating factors: nothing Treatment prior to arrival: none Risk Factors Coronary artery disease risk factors: none Thoracic aortic dissection risk factors: none Related Data Home Medications ?Medication ?Instructions ?Recorded ?Confirmed lancets 33 gauge (OneTouch Delica #100 ea 01/02/22 Plus Lancet) Previous Rx's ?Medication ?Instructions ?Recorded blood sugar diagnostic #100 ea 02/23/21 blood-glucose meter (OneTouch #1 ea 02/23/21 Ultra2 Meter kit) lancets 28 gauge (OneTouch #100 ea 02/23/21 [employer] Lancing Devices) flash glucose scanning reader #1 ea 03/19/22 (FreeStyle Jesse 2 Yale) flash glucose sensor (FreeStyle #6 ea 05/03/22 Jesse 2 Sensor kit) diltiazem HCl 240 mg capsule,24 240 mg PO QAM #90 caps 02/17/24 hr,extended release pravastatin 40 mg tablet 40 mg PO DAILY #90 tabs 02/17 metoprolol tartrate 50 mg tablet 50 mg PO BID #180 tab s 04/27/24 rivaroxaban 20 mg tablet (Xarelto) 20 mg PO DAILY #90 tabs 08/06/24 omeprazole 40 mg capsule,delayed 40 mg PO DAILY #90 ca ps 08/12/24 release lisinopril 20 mg tablet 20 mg PO DAILY 30 days #90 t abs 08/28/24 cefpodoxime 200 mg tablet 200 mg PO BID #14 tabs 08/31 oxycodone 5 mg tablet 5 mg PO Q6H PRN Pain (Scale Score 09/02/24 7-10) #30 tabs dexamethasone 2 mg tablet 2 mg PO TID 10 days #30 tabs 09/03/24 Allergies Allergy/AdvReac Type Severity Reaction Status Date / Time latex (LATEX) Allergy Intermediate RASH WITH Verified 09/03/24 09:38 CONTACT Review of Systems 2 Review of Systems: Yes all other systems are reviewed and are negative Constitutional: Constitutional: Reports as per [facility] Past Medical History Attestation statement: The following information was validated with the patient. Medical History Colon cancer screening Hyperglycemia Port-A-Cath in place On beta harley at home Abnormal ultrasound of breast Screening for breast cancer PUD (peptic ulcer disease) Essential hypertension PAF (paroxysmal atrial fibrillation) Vertigo Pacemaker (~2008) GERD (gastroesophageal reflux disease) Hypercholesteremia Surgical History Hx of colonoscopy History of left mastectomy (07/04/22) History of lumpectomy of left breast History of appendectomy History of permanent cardiac pacemaker placement History of cholecystectomy History of tubal ligation Family History Family History Mother No problems noted. Father No problems noted. 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 Cognitive needs: No Hearing needs: No Vision needs: Yes Physical Exam 2 Vital Signs: Vital Signs: Last Vital Signs Temp 98.0 F 09/03/24 15:59 Pulse 66 09/03/24 15:59 Resp 18 09/03/24 15:59 BP 120/48 L 09/03/24 15:59 Pulse Ox 98 09/03/24 15:59 O2 Del Method Room Air 09/03/24 15:59 BMI result Body Mass Index 23.1 Const: General: cooperative, comfortable and no acute distress O rientation/consciousness: patient oriented x3 Limitations: no limitations HEENT: Head: Yes normal to inspection, Yes normocephalic and Yes atraumatic Ears: hearing grossly normal bilaterally General nose exam: Normal external nose present Face and sinus: Yes normal facial exam Mouth: Normal oral and palatal mucosa present, oropharynx normal and moist mucous membranes Throat: Yes posterior oropharynx normal Eyes: General: appearance normal, both eyes and all related structures E yelids: Yes eyelids normal Conjunctivae: conjunctivae normal Sclerae: s clerae normal Pupils: Equal, round and reactive pupils present EOM: EOMs intact bilaterally Neck: Neck: Yes normal visual inspection, Yes full ROM and Yes no lymphadenopathy Lymphatic: no lymphadenopathy noted Chest: Chest palpation & inspection: normal inspection of the chest Resp: Effort & Inspection: normal respiratory effort and able to speak in complete sentences Auscultation: clear to auscultation bilaterally, no crackles, no rales, no rhonchi and no wheezes Cardio: Rate: regular rate Rhythm: regular rhythm Heart sounds: S1 normal heart sound present and S2 normal heart sound present GI: Inspection: Yes normal to inspection Skin: General skin exam: no rashes or lesions noted Trauma: no lacerations or abrasions Wounds: no wounds Neuro: General: patient oriented x3 and moves all extremities Cranial nerves: Yes Equal, round and reactive pupils present Cognition (Neuro): n ormal cognition Gait exam (Neuro): Normal gait present Motor exam (neuro): 5/5 motor strength present throughout and Pronator motor function not present Coordination: [id number] test normal, qqlw-vb-[id number] test normal and tandem gait normal Extrem: Other: No pitting edema noted bilaterally General: Yes normal to inspection Right upper extremity: normal to inspection Left upper extremity: normal to inspection Right lower extremity: normal to inspection Left lower extremity: normal to inspection Medications Administered Discontinued Medications Generic Name Dose Route Start Last Admin Trade Name Freq PRN Reason Stop Dose Admin Heparin Sodium (Porcine) 500 0 unit 09/03/24 15:33 09/03/24 15:42 unit/ Sodium Chloride 5 ml IVFLUSH 09/03/24 15:34 500 unit ONCE ONE Administration Dexamethasone 2 mg 09/03/24 14:55 09/03/24 15:09 Dexamethasone 2 Mg Tablet PO 09/03/24 14:56 2 mg ONCE ONE Administration Acetaminophen 1,000 mg in 100 mls @ 400 mls/hr 09/03/24 12:09 09/03/24 13:49 Ofirmev IV 09/03/24 12:23 Infused ONCE ONE Infusion Iohexol 100 ml 09/03/24 13:36 09/03/24 13:37 Iohexol 350 Mg/Ml 100 Ml Infus..Btl IV 09/03/24 13:37 85 ml ONCE ONE Administration Ondansetron HCl 4 mg 09/03/24 12:14 09/03/24 13:03 Ondansetron Hcl 4 Mg/2 Ml Vial IVPUSH 09/03/24 12:15 4 mg ONCE ONE Administration Medical Decision Making Medical Decision Making MDM Narrative: This is a 68-year-old female, with a past medical history of invasive left breast invasive ductal carcinoma currently followed by Dr. Lynn not on chemotherapy or radiation, paroxysmal atrial fibrillation, with intermittent sick sinus syndrome and high degree AV block, pacemaker placement 09/2022, breast cancer followed by Dr. Lynn, hypertension coming to the emergency department via EMS from [facility]. On arrival, patient is well-appearing, blood pressure low at 123/46, she is speaking full sentences under no acute distress. Abdomen is soft and nontender. Patient reported to the emergency room at [facility] nurse found that she was hyponatremic at 121, had a normocytic anemia with an H&H of 8.9/26.3, platelet count of 116, or a level 92, bicarb 18, osmolality at 257 albumin 2.9, alk phos 333, AST ALT 79 and 102. High sensitivity troponin 17. She tested negative for flu, COVID, RSV. Patient's labs today reveal patient has a normocytic anemia at 8.8/25.8, platelet count 102, sodium of 131, AST ALT elevated at 60 6/103, alk phos 258, BNP 732, Albumin 2.8. Chest x-ray revealing right upper lobe mass. Will discussed with Dr. Mcgill, patient's oncologist for further recommendations. Her labs otherwise look improved from this morning at [facility]. Vital signs remained stable. Will continue to closely monitor pending recommendations from oncologist. Discussed case with the oncologist, given that her hyponatremia has improved, this may be managed outpatient. BNP also elevated at 732, chest pain does not appear to be cardiac in nature however 2nd troponin was ordered, is negative. Patient reporting headache that developed while she was here in the emergency room. Dr. Caraballo stated that given that she is scheduled to have imaging of her head, recommending CT head with contrast. CT head revealing 1mm ring enhancing lesion in the subacromial space of the right frontal lobe with vasogenic edema. I discussed this with Dr. Caraballo. I also reached out to [facility]. I spoke to MARCELA Fonseca who reviewed the images. No emergent neurosurgical intervention is needed at this time. Given some vasogenic edema, recommending Decadron however deferred dosing and regimen to oncologist. I spoke to Dr. Mcgill who recommends dexamethasone 2 mg t.i.d. times 10 days. She will be followed closely with Dr. Mcgill. At this time, patient is feeling well, she is ambulatory. At this time she does not meet any medical necessity for admission. Troponin x2 negative. BNP is elevated at 732 however she does not appear to be fluid overloaded, no pedal edema. Vital signs within normal limits. Lungs are clear to auscultation bilaterally. Discussed with family, they are agreeable for discharge home, with strict return precautions. They understand and agree with plan. Patient stable for discharge. Differential Diagnosis Differential Diagnoses: The differential diagnosis associated with the presentation includes Hyponatremia, SIADH, lung mass, pneumonia, ACS Admission/Observation Consideration of admission/observation: Escalation of care including admission/observation considered Consult Healthcare Provider Management of the patient was discussed with: Chief Fundraising Officer Oncologist, Neurosurgery - see course comment and MDM Lab Data [facility] Lab Attestation statement: I reviewed the patient's lab results. See MDM and course 09/03/24 10:07 09/03/24 10:07 Labs: Lab Results 09/03/24 09/03/24 09/03/24 Range/Units 10:07 10:11 12:16 WBC 4.9 (4.8-10.8) X10*3/uL RBC 3.05 L (4.20-5.50) X10*6/uL Hgb 8.8 L (12.0-16.0) g/dl Hct 25.8 L (37.0-47.0) % MCV 84.6 (80.0-98.0) fL MCH 28.9 (27.0-33.0) pg MCHC 34.1 (31.0-35.0) g/dl RDW 14.4 (11.0-16.0) % Plt Count 102 L D (160-400) X10*3/uL MPV 9.5 (9.4-12.3) fL Immature Gran % (Auto) 1.0 H (0.0-0.4) % Neut % (Auto) 59.1 (45-73) % Lymph % (Auto) 21.5 (20-40) % Lewis % (Auto) 18.0 H (2-11) % Eos % (Auto) 0.2 (0-4) % Baso % (Auto) 0.2 (0-2) % Lymph # (Auto) 1.1 L (1.2-4.9) X10*3/uL Lewis # (Auto) 0.9 (0.1-1.2) X10*3/uL Eos # (Auto) 0.0 (0.0-0.4) X10*3/uL Baso # (Auto) 0.0 (0.0-0.2) X10*3/uL Abs Immat Gran (auto) 0.05 H (0.00-0.03) X10*3/uL Absolute Neuts (auto) 2.9 (2.0-8.3) x10*3/uL Absolute Nucleated RBC 0.000 (0.0-0.012) X10*3/uL Nucleated RBC % (auto) 0.0 (0.0-0.2) /100WBC Sodium 131 L (135-145) mmol/L Potassium 4.3 (3.3-5.1) mmol/L Chloride 102 (96-108) mmol/L Carbon Dioxide 22 (22-29) mmol/L Anion Gap 11 L (12-20) BUN 10 (9-16) mg/dL Creatinine 0.84 (0.5-1.4) mg/dL Estim Creat Clear Calc 52.3 Estimated GFR > 60 Random Glucose 117 H (60-115) mg/dL Calcium 8.8 (8.4-10.2) mg/dL Magnesium 1.8 (1.6-2.6) mg/dL Total Bilirubin 0.9 (0.0-1.0) mg/dL Direct Bilirubin 0.5 (0.0-0.5) mg/dL AST 66 H (5-31) U/L ALT 103 H (0-31) U/L Alkaline Phosphatase 258 H (39-117) U/L Lactate Dehydrogenase 404 H (122-220) U/L Troponin I High Sens 7.1 6.1 (<3.5-17.0) ng/L B-Natriuretic Peptide 732 H (<100) pg/mL Total Protein 7.4 (6.5-8.0) g/dL Albumin 2.8 L (3.5-5.0) g/dL Lipase 9 (8-78) U/L Carcinoembryonic Ag 3.30 ng/mL Blood Type O Positive Antibody Screen NEGATIVE Independent Interpretation I performed an independent interpretation of an: EKG Interpretation: EKG atrial fibrillation with occasional ventricular paced complexes, ventricular rate of 65 beats per minute, QT QTC 454/472. No STEMI Radiology Impression Discussion of test interpretation with radiology: I have reviewed the radiologist's reading. Radiologist Impression: TECHNIQUE: 2 views of the chest were obtained. FINDINGS: Left-sided chest port is again noted in place, with tip in the mid SVC. There are abandoned chest leads extending into the right atrium and right ventricle. Cardiac monitoring device noted. The cardiac, hilar, and mediastinal contours are normal. Lungs demonstrate a right upper lobe lobular opacity, likely mass, contiguous with the superior right hilum and right mediastinum. The left lung is clear. There is no pneumothorax or pleural effusion. There is no focal osseous or soft tissue abnormality. Cholecystectomy clips noted. XR/XR chest 2V IMPRESSION: 1. Redemonstration of right upper lobe mass. 2. Left lung is clear. No effusions. 3. Right chest port in good position. 4. Abandoned left-sided pacemaker leads. Electronically signed by: Minor Sim MD 09/03/2024 10:25 AM EDT RP Critical Care Time Critical Care Time Critical Care Time: Yes Total Critical Care Time: 49 Attestation: I have personally provided critical care time exclusive of time spent on separately billable procedures. Time includes review of lab data, radiology results, discussion with consultants, and monitoring for potential decompensation. Intervention performed as documented. Discharge Plan Discharge Clinical Impression: Chest pain, Brain lesion Patient Disposition: Home, Self-Care Instructions: Chest Pain (ED) Additional Instructions: You were seen in the emergency department today. Your workup today was reassuring. Your CAT scan of your head unfortunately does show a 10 mm brain lesion with some mild swelling. We spoke to [facility] who report that there were no emergent neurosurgical interventions warranted at this time. They do recommend oral steroids. I discussed with Dr. Lynn, we are starting you on dexamethasone 2 mg 3 times a day for the next 10 days. Continue taking the antibiotic that you are also prescribed. If any new or worsening symptoms occur including but not limited to severe chest pain, dizziness, severe headache, weakness, numbness tingling, or any other worsening symptoms, please seek emergent care. Dr. Mcgill has requested for you to have her cell if you have any questions or concerns: Dr. Mcgill's cell number: [phone] Prescriptions: New dexamethasone 2 mg tablet 2 mg PO TID 10 Days Qty: 30 0RF No Action (DME) blood-glucose meter [OneTouch Ultra2 Meter] Kit See Rx Instructions .ROUTE .MEDSUPPLY Qty: 1 0RF Rx Instructions: As directed check the blood sugar once a day (DME) blood sugar diagnostic Strip See Rx Instructions .ROUTE .MEDSUPPLY Qty: 100 3RF Rx Instructions: As directed check the blood sugar once a day (DME) lancets [Think2Touch Sure[employer] Lancing Dev] 28 gauge misc See Rx Instructions .Route Qty: 100 3RF Rx Instructions: As directed check the blood sugar once a day (DME) FreeStyle Jesse 2 Yale Misc See Rx Instructions .ROUTE .COMPLEX Qty: 1 0RF Dose Instruction: USE DIRECTED Rx Instructions: USE DIRECTED (DME) FreeStyle Jesse 2 Sensor Kit See Rx Instructions .ROUTE .COMPLEX Qty: 6 0RF Dose Instruction: USE DIRECTED Rx Instructions: USE DIRECTED diltiazem HCl 240 mg capsule,extended release 24 hr 240 mg PO QAM Qty: 90 3RF Xarelto 20 mg tablet 20 mg PO DAILY Qty: 90 1RF omeprazole 40 mg capsule,delayed release(DR/EC) 40 mg PO DAILY Qty: 90 0RF lisinopril 20 mg tablet 20 mg PO DAILY 30 Days Qty: 90 2RF oxycodone 5 mg Tablet 5 mg PO Q6H PRN (Reason: Pain (Scale Score 7-10)) Qty: 30 0RF Rx Instructions: Partial Fill upon patient request. cefpodoxime 200 mg tablet 200 mg PO BID Qty: 14 0RF Rx Instructions: must administer with a meal/food (DME) lancets [OneTouch Delica Plus Lancet] 33 gauge misc See Rx Instructions .ROUTE DAILY Qty: 100 Rx Instructions: As directed metoprolol tartrate 50 mg tablet 50 mg PO BID Qty: 180 3RF pravastatin 40 mg tablet 40 mg PO DAILY Qty: 90 3RF Interventions: ED Discharge Assessment Last Done: 09/03/24 15:59 Discharge Date/Time: 09/03/24 16:01 Print Language: French
--- NOTE | 2024-09-03 10:15 | PC.NURSE ---
patient a&ox3, vss, ekg performed, groundwater monitoring technician applied- afib/vpaced on monitor, labs drawn, pt previously had IV established to left arm from [facility]. Pt does have a rt chest port that is CT compatible verified in an xray. call palencia within reach, plan of care ongoing.
[2024-09-03 10:16] LABS: MANUAL DIFF FLAG NO
[2024-09-03 10:18] LABS: Basophils Percent Auto 0.2 % (0-2); Eosinophils Percent Auto 0.2 % (0-4); Hematocrit 25.8 % (37.0-47.0); Hemoglobin 8.8 g/dl (12.0-16.0); Imm Gran Abs Auto 0.05 X10*3/uL (0.00-0.03); Lymphocytes Absolute Auto 1.1 X10*3/uL (1.2-4.9); Lymphocytes Percent Auto 21.5 % (20-40); Mean Corpuscular HGB Conc 34.1 g/dl (31.0-35.0); Mean Corpuscular Hemoglobin 28.9 pg (27.0-33.0); Mean Corpuscular Volume 84.6 fL (80.0-98.0); Mean Platelet Volume 9.5 fL (9.4-12.3); Monocytes Absolute Auto 0.9 X10*3/uL (0.1-1.2); Neutrophils Absolute Auto 2.9 x10*3/uL (2.0-8.3); Neutrophils Percent Auto 59.1 % (45-73); Platelet Count 102 X10*3/uL (160-400); Red Blood Count 3.05 X10*6/uL (4.20-5.50); Red Cell Distribution Width 14.4 % (11.0-16.0); White Blood Count 4.9 X10*3/uL (4.8-10.8)
[2024-09-03 10:31] LABS: Alanine Aminotransferase 103 U/L (0-31); Albumin Level 2.8 g/dL (3.5-5.0); Alkaline Phosphatase 258 U/L (39-117); Anion Gap 11 (12-20); Aspartate Amino Transferase 66 U/L (5-31); Bilirubin Direct 0.5 mg/dL (0.0-0.5); Bilirubin Total 0.9 mg/dL (0.0-1.0); Blood Urea Nitrogen 10 mg/dL (9-16); Calcium 8.8 mg/dL (8.4-10.2); Carbon Dioxide 22 mmol/L (22-29); Chloride 102 mmol/L (96-108); Creatinine Clr Calc Pharmacy 52.3; Estimated Glomerular Filt Rate > 60; Glucose Random 117 mg/dL (60-115); Lipase 9 U/L (8-78); Magnesium 1.8 mg/dL (1.6-2.6); Potassium 4.3 mmol/L (3.3-5.1); Sodium 131 mmol/L (135-145); Total Protein 7.4 g/dL (6.5-8.0)
[2024-09-03 10:39] LABS: Troponin-I High Sensitivity 7.1 ng/L (<3.5-17.0)
[2024-09-03 10:47] LABS: B Type Natriuretic Peptide 732 pg/mL (<100)
[2024-09-03 11:35] VITALS: BP 131/47; PULSE 70; RESP 20; TEMP 36.7; O2SAT 98
--- NOTE | 2024-09-03 12:05 | PC.NURSE ---
provider requested for patient to do a walking pulse ox, tech was asked to perform this, upon the tech going into the patients room pt stated they didnt feel well enough to ambulate, were too weak and couldnt walk at this time. provider is aware, daughter is at bedside, provider speaking with daughter and family at this time.
[2024-09-03 12:47] LABS: Troponin-I High Sensitivity 6.1 ng/L (<3.5-17.0)
[2024-09-03] MEDS: ondansetron HCL 4 MG/2 ML VIAL IVPUSH (13:03)
--- NOTE | 2024-09-03 13:05 | PC.NURSE ---
pt to go over to CT scan, will give iv pain medication upon her return as it is a drip.
[2024-09-03] MEDS: Acetaminophen 1,000 MG/100 ML PIGGYBACK 400 MG IV (13:34)
[2024-09-03] MEDS: iohexoL 350 MG/ML 100 ML INFUS..BTL IV (13:37)
[2024-09-03 14:07] VITALS: BP 115/43; PULSE 68; RESP 18; TEMP 36.7; O2SAT 97
[2024-09-03] MEDS: dexAMETHasone 2 MG TABLET PO (15:09)
[2024-09-03 15:48] LABS: Lactate Dehydrogenase 404 U/L (122-220)
[2024-09-03 15:59] VITALS: BP 120/48; PULSE 66; RESP 18; TEMP 36.7; O2SAT 98
== END 2024-09-03 16:01 | disposition home or self-care (01) ==
PROVIDERS: Physician Assistant Medical; Emergency Provider Emergency Medicine; PCP Internal Medicine
DX: R07.89 Other chest pain (principal); R51.9 Headache, unspecified; I48.0 Paroxysmal atrial fibrillation; R94.31 Abnormal electrocardiogram [ECG] [EKG]; R50.9 Fever, unspecified; R05.9 Cough, unspecified; G93.9 Disorder of brain, unspecified; R06.02 Shortness of breath; R79.89 Other specified abnormal findings of blood chemistry; Z79.01 Long term (current) use of anticoagulants; Z79.899 Other long term (current) drug therapy
CPT/HCPCS: 36415; 70470; 71046; 80048; 80076; 82378; 83615; 83690; 83735; 83880; 84484; 85025; 86850; 86900; 86901; 93005; 96374; 96375; 99284; 99285; J0131; J1642; J2405; J8540; Q9967

== ENCOUNTER → 2024-09-03 09:36 | Outpatient (BNV) | payer MEDICARE, SELFPAY | PROVIDERS: Emergency Provider Emergency Medicine; PCP Internal Medicine; Visit Provider Internal Medicine Cardiovascular Disease | DX: I48.91 Unspecified atrial fibrillation (principal); I49.3 Ventricular premature depolarization | CPT/HCPCS: 93010 ==

== ENCOUNTER → 2024-09-03 09:37 | Outpatient (BNV) | payer MEDICARE, SELFPAY | PROVIDERS: PCP Internal Medicine; Visit Provider Radiology Diagnostic Radiology | DX: R51.9 Headache, unspecified (principal); C79.89 Secondary malignant neoplasm of other specified sites; R91.8 Other nonspecific abnormal finding of lung field; Z95.0 Presence of cardiac pacemaker | CPT/HCPCS: 70470; 71046 ==

== ENCOUNTER 2024-09-10 15:33 | Outpatient (AMB) | payer MEDICARE, SELFPAY ==
[2024-09-10 15:37] VITALS: BP 110/52; PULSE 72; O2SAT 100; BMI 20.9
--- NOTE | 2024-09-10 15:37 | A.OFFVIS_ITS ---
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 The patient is a mary jo 68-year-old woman with a known diagnosis of breast cancer back in 2021. Unfortunately was metastatic at the time the and it was also reported negative. She was given chemotherapy and also immunotherapy. More recently the patient started developing a cough chest tightness and congestion and also some pleuritic chest pain. She went to her primary care who ordered a chest x-ray with demonstrating a opacity in the right infrahilar area. Ultimately underwent a CT scan demonstrating a masslike density in the right upper lobe area in addition to significant lymphadenopathy. Afterwards she started developing some neurological symptoms since she went to the hospital. There she had a CT scan demonstrating brain lesions suggesting metastatic disease. She is also on Xarelto for cardiac arrhythmia. She is scheduled for a bronchoscopy with endobronchial ultrasound bronchoscopy and transbronchial needle aspirations of the mediastinal lymph nodes. Will plan to do that Saturday. The meantime will have her stop the Xarelto 3 days before. Overall the patient feels a little better because she was started on prednisone in addition to given antibiotic. I gave her the instructions for the procedure which is going to be on Saturday if the patient has any issues prior to that she will call. [facility] Medical History (Updated 09/10/24 @ 23:58 by Milton Aden MD) Lymphadenopathy, mediastinal Lung mass Colon cancer screening Hyperglycemia Port-A-Cath in place On beta harley at home Abnormal ultrasound of breast Screening for breast cancer PUD (peptic ulcer disease) Essential hypertension PAF (paroxysmal atrial fibrillation) Vertigo Pacemaker (~2008) GERD (gastroesophageal reflux disease) Hypercholesteremia Surgical History Hx of colonoscopy History of left mastectomy (07/04/22) History of lumpectomy of left breast History of appendectomy History of permanent cardiac pacemaker placement History of cholecystectomy History of tubal ligation Family History Mother No problems noted. Father No problems noted. 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 Cognitive needs: No Hearing needs: No Vision needs: Yes Review of Systems Const Denies weakness ENT Denies dizziness Card Denies chest pain, Denies chest pain with activity, Denies syncope, Denies rapid heart rate, Denies pedal edema, Denies edema, Denies leg edema, Denies lightheadedness, Denies palpitations, Denies dyspnea, Denies dyspnea on exertion and Denies orthopnea Resp Reports cough, Reports pain with cough, Denies dyspnea and Denies dyspnea on exertion GI Denies hematochezia and Denies change in stool character Musc Denies abnormal gait, Denies muscle cramps, Denies muscle weakness, Denies numbness, Denies radiating pain into limb and Denies tingling Neuro Denies abnormal gait, Denies dizziness, Denies syncope, Denies numbness, Denies tingling and Denies weakness Endo Denies palpitations Physical Exam Vital Signs: Last Vital Signs Pulse 72 09/10/24 15:37 BP 110/52 L 09/10/24 15:37 Pulse Ox 100 09/10/24 15:37 Oxygen Delivery Method Room Air 09/10/24 15:37 BMI result Body Mass Index 20.9 Const General: cooperative, comfortable and no acute distress Orientation/consciousness: patient oriented x3 Limitations: no limitations HEENT Head: Yes normal to inspection, Yes normocephalic and Yes atraumatic Eyes General: appearance normal, both eyes and all related structures Neck Neck: Yes normal visual inspection and Yes full ROM Chest Chest palpation & inspection: normal inspection of the chest Resp Effort & Inspection: normal respiratory effort and able to speak in complete sentences Auscultation: clear to auscultation bilaterally, no crackles, no rales, no rhonchi and no wheezes Cardio Rate: regular rate Rhythm: regular rhythm Heart sounds: S1 normal heart sound present and S2 normal heart sound present GI Inspection: Yes normal to inspection Skin General skin exam: no rashes or lesions noted Trauma: no lacerations or abrasions Wounds: no wounds Neuro General: patient oriented x3 and moves all extremities Extrem Other: No pitting edema noted bilaterally General: Yes normal to inspection Right upper extremity: normal to inspection Left upper extremity: normal to inspection Right lower extremity: normal to inspection Left lower extremity: normal to inspection Assessment & Plan Assessment & Plan (1) Lung mass: Code(s): R91.8 - Other nonspecific abnormal finding of lung field Category: Medical (2) Lymphadenopathy, mediastinal: Code(s): R59.0 - Localized enlarged lymph nodes Category: Medical (3) Ductal carcinoma in situ (DCIS) of left breast: Code(s): D05.12 - Intraductal carcinoma in situ of left breast Category: Medical Plan Stop the xarelto 3 days prior to EBUS/Bronchoscopy with biospy/ FNA, scheduled for Saturday09/14/2024 Instructions provided F/U 3-4 weeks Coding Level of Care Code New Pt Level 5 (91187) Diagnoses Lung mass R91.8 Lymphadenopathy, mediastinal R59.0 Ductal carcinoma in situ (DCIS) of left breast D05.12 Time Spent (min) 60
== END 2024-09-10 16:10 | disposition home or self-care (01) ==
LOC: HO.HPS 15:34
PROVIDERS: PCP Internal Medicine; Visit Provider Hospitalist
DX: R91.8 Other nonspecific abnormal finding of lung field (principal); R59.0 Localized enlarged lymph nodes; D05.12 Intraductal carcinoma in situ of left breast
CPT/HCPCS: 99205

== ENCOUNTER → 2024-09-10 15:33 | Outpatient (BNVA) | payer MEDICARE, SELFPAY | PROVIDERS: PCP Internal Medicine; Visit Provider Hospitalist | DX: D05.12 Intraductal carcinoma in situ of left breast (principal); R91.8 Other nonspecific abnormal finding of lung field; R59.0 Localized enlarged lymph nodes | CPT/HCPCS: 99202 ==

== ENCOUNTER 2024-09-14 11:51 | Day surgery (SDC) | payer MEDICARE, SELFPAY ==
--- NOTE | 2024-09-11 12:27 | HO.ANESPROP2 ---
Documented by User: Alessia Raygoza NP 09/11/24 12:32 HPI - Anesthesia Eval Consult details Narrative: 68yo F for Endoscopic Bronchial Ultrasound Breast CA 2021 with chemo/rad presented with respiratory and neuro symptoms - imaging suggesting mets [place] [facility] [place]ib (x[place]to), pacer in situ ( She had a left-sided pacemaker that was in the way of radiation and after discussion with Radiation Oncology, she underwent a leadless pacemaker. The RV and RA leads were capped. The old dual-chamber pacemaker generator was explanted. ) Stable at 04/2024 office visit [facility] Active Problems Active Problems: All Active Problems Lymphadenopathy, mediastinal (Acute) Lung mass (Acute) Osteoporosis (Acute) Personal history of colonic polyps (Acute) Pruritus (Acute) Bradycardia (Acute) Left lower quadrant abdominal pain of unknown etiology (Acute) Positive colorectal cancer screening using Cologuard test (Acute) Age-related osteoporosis without current pathological fracture (Acute) Chest discomfort (Acute) PAF (paroxysmal atrial fibrillation) (Acute) S/P left mastectomy (Acute) 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) Shoulder pain, right (Acute) Type 2 diabetes mellitus with hyperglycemia (Acute) Pruritus (Acute) Rotator cuff tendonitis (Acute) Burning with urination (Acute) Persistent atrial fibrillation (Acute) Abnormal EKG (Acute) Hepatitis B core antibody positive (Acute) Depression, major (Acute) S/P lumpectomy, left breast (Acute) Ductal carcinoma in situ (DCIS) of left breast (Acute) Essential hypertension (Acute) Hypercholesteremia (Acute) Vertigo (Acute) GERD (gastroesophageal reflux disease) (Acute) Pacemaker (Acute ~2008) Left breast lump (Acute) Past Medical History Medical History Lymphadenopathy, mediastinal Lung mass Colon cancer screening Hyperglycemia Port-A-Cath in place On beta harley at home Abnormal ultrasound of breast Screening for breast cancer PUD (peptic ulcer disease) Essential hypertension PAF (paroxysmal atrial fibrillation) Vertigo Pacemaker (~2008) GERD (gastroesophageal reflux disease) Hypercholesteremia Family History Family History Mother No problems noted. Father No problems noted. Family history of problems with anesthesia: No Surgical History Surgical History Hx of colonoscopy History of left mastectomy (07/04/22) History of lumpectomy of left breast History of appendectomy History of permanent cardiac pacemaker placement History of cholecystectomy History of tubal ligation History of Problems with Anesthesia: No Social History Social History Household Members: Spouse Housing: House Are you a primary morning caregiver to a significant other at home: No Do you presently have visiting nurse or other home services: Yes (dressing changes) Alcohol intake: never Patient Tobacco Use Status: Never used Tobacco Tobacco use type: Cigarette e-Cigarette/Vaping Use: Never Used Second Hand Smoke Exposure: No Use of substances other than those prescribed or required for medical reasons: No Are you DNR?: No Advance Directives: No Advance Directives Information Provided: Yes Advance Directives Date on File: 04/19/17 Patient : No : No Poor oral hygiene: No service: No Current occupational status: retired 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 Cognitive needs: No Hearing needs: No Vision needs: Yes Meds Allergies Allergy/AdvReac Type Severity Reaction Status Date / Time latex (LATEX) Allergy Intermediate RASH WITH Verified 09/10/24 15:40 CONTACT Home Medications ?Medication ?Instructions ?Recorded ?Confirmed ?Last Taken ?Type lancets 33 gauge (OneTouch Delica #100 ea 01/02/22 09/02/24 Unknown History Plus Lancet) Exam Pertinent Lab Results Pertinent Lab Results: Laboratory Tests 09/09/24 09/10/24 16:20 13:35 WBC 14.6 H Hgb 11.3 L D Hct 33.4 L D Plt Count 227 D Sodium 130 L Potassium 4.4 Chloride 104 Carbon Dioxide 22 BUN 36 H Creatinine 1.16 Narrative Narrative: Cardiac Device Check Details: Date of service- 06/08/2024 ; Battery life >8 years; normal lead parameters; BINDERY MACHINE SETTER 92%; no significant arrhythmias. Overall normal device function. [id number] Cardiac Device Interrogation, pacemaker Procedure code (CPT) selection complete EKG 04/2024 Details: EKG shows atrial fibrillation rate of 66/Min. Ventricular pacing noted. Assessment and Plan Assessment Anesthesia Assessment: Chart Reviewed Final Anesthetic Review Family History of Problems with Anesthesia: No History of Problems with Anesthesia: No Documented by User: Ambar Lackey MD 09/14/24 12:53 PMFSH Past Medical History Medical History Lymphadenopathy, mediastinal Lung mass Colon cancer screening Hyperglycemia Port-A-Cath in place On beta harley at home Abnormal ultrasound of breast Screening for breast cancer PUD (peptic ulcer disease) Essential hypertension PAF (paroxysmal atrial fibrillation) Vertigo Pacemaker (~2008) GERD (gastroesophageal reflux disease) Hypercholesteremia Family History Family History Mother No problems noted. Father No problems noted. Surgical History Surgical History Hx of colonoscopy History of left mastectomy (07/04/22) History of lumpectomy of left breast History of appendectomy History of permanent cardiac pacemaker placement History of cholecystectomy History of tubal ligation Social History Social History Household Members: Spouse Housing: House Are you a primary morning caregiver to a significant other at home: No Do you presently have visiting nurse or other home services: Yes (dressing changes) Alcohol intake: never Patient Tobacco Use Status: Never used Tobacco Tobacco use type: Cigarette e-Cigarette/Vaping Use: Never Used Second Hand Smoke Exposure: No Use of substances other than those prescribed or required for medical reasons: No Are you DNR?: No Advance Directives: No Advance Directives Information Provided: Yes Advance Directives Date on File: 04/19/17 Patient : No : No Poor oral hygiene: No service: No Current occupational status: retired 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 Cognitive needs: No Hearing needs: No Vision needs: Yes Meds Allergies Allergy/AdvReac Type Severity Reaction Status Date / Time latex (LATEX) Allergy Intermediate RASH WITH Verified 09/10/24 15:40 CONTACT Home Medications ?Medication ?Instructions ?Recorded ?Confirmed ?Last Taken ?Type lancets 33 gauge (Spreaker Gena #100 ea 01/02/22 09/02/24 Unknown History Plus Lancet) Exam Airway Mallampati Class: II TM Dist: <=3cm Neck ROM: Limited Heart: rrr Lungs: cta Assessment and Plan Assessment Anesthesia Assessment: Anesthesia Plan Discussed Final Anesthetic Review NPO: Yes ASA Class: III Final Preanesthetic Review: No Changes in Pt Med Stat, Meds/Allgs Chart Reviewed, Consent Obtained/Reviewed and Anes Risks/Benef Reviewed Patient Risk: Intermediate Procedure Risk: Low Anesthetic Plan Anesthetic Plan: GA Disposition: Standard PACU
--- NOTE | 2024-09-14 11:58 | MHC.SHP ---
Pre-Procedural Eval Section A - 24 Hr Update-Section A only Date of Service: 09/14/24 The patient is an INPATIENT: No Changes since office visit: No Cold of Flu in the past 2 weeks, No New Medical Problems, No Changes in Medication and No Patient answered all questions The patient has been examined within 24 hours of the surgical procedure. The History & Physical has been completed within 30 days and I have reviewed it.: Yes Section B - Complete if H&P > 30 days Chief Complaint: Malignant neoplasm of unspecified part of unspecif Allergies: Allergies Allergy/AdvReac Type Severity Reaction Status Date / Time latex (LATEX) Allergy Intermediate RASH WITH Verified 09/10/24 15:40 CONTACT Plan I have reviewed the history and physical and performed a pertinent physical examination on my patient. No changes have occurred unless specified. Time Spent With Patient Time: Total time managing care of this patient today ____ minutes.
[2024-09-14 12:02] VITALS: BMI 20.1
[2024-09-14 12:17] VITALS: BP 154/77; PULSE 63; RESP 16; TEMP 35.5; O2SAT 99
[2024-09-14] MEDS: Lactated Ringers 1,000 ML 100 ML IVCONT (12:48)
[2024-09-14 14:55] VITALS: BP 143/55; PULSE 76; RESP 16; TEMP 36.2; O2SAT 97
[2024-09-14 15:00] VITALS: BP 139/61; PULSE 78; RESP 16; O2SAT 97
--- NOTE | 2024-09-14 15:00 | P.BOP_ITS ---
Brief Operative Note Date of Service: 09/14/24 Pre-op diagnosis: lung mass and lymphadenopathy Post-op diagnosis: other (Carcinoma) Procedure: EBUS with TBNA of right suprahilar mass, Bronchosopcy with biopsies RUL and bilateral lung washings Surgeon: Milton Aden MD Anesthesia: GLMA Was an Instructional Support Services Director used for this Procedure?: No Estimated blood loss (mL): 1 Pathology: other (RUL biopsies, TBNA right sided mass) Condition: stable Disposition: same day
[2024-09-14 15:15] VITALS: BP 147/67; PULSE 80; RESP 16; O2SAT 97
[2024-09-14 15:30] VITALS: BP 137/66; PULSE 74; RESP 16; O2SAT 97
[2024-09-14 15:42] VITALS: BP 152/63; PULSE 86; RESP 16; TEMP 36.2; O2SAT 97
--- NOTE | 2024-09-15 02:24 | OP_ITS ---
DATE OF SERVICE: 09/14/2024 SURGEON: Milton Aden MD PREOPERATIVE DIAGNOSIS: POSTOPERATIVE DIAGNOSIS: PROCEDURE PERFORMED: Ultrasound bronchoscopy with transbronchial needle aspirations of the right hilar mass and also bronchoscopy with washing and bronchial biopsies of the right upper lobe. ESTIMATED BLOOD LOSS: COMPLICATIONS: ANESTHESIA: LMA. ASSISTANTS: SPECIMENS: ASA CLASSIFICATION: III. PREOPERATIVE DIAGNOSES: Lymphadenopathy and right-sided lung mass. POSTOPERATIVE DIAGNOSES: Carcinoma. GUARDIAN AD LITEM: None. Consent obtained from the patient. DESCRIPTION OF PROCEDURE: After the patient was adequately sedated, LMA in place, the flexible digital bronchoscope with endobronchial ultrasound bronchoscopy (EBUS) was introduced via the LMA to the level of the larynx. The vocal cord is more symmetric into the midline. No laryngeal abnormalities were noted. After instilling lidocaine, the bronchoscope was then passed the vocal cord over the trachea. Trachea was small in diameter, but the tracheal rings appeared to be normal and intact. After instilling the patient with lidocaine, the bronchoscope was navigated to the main anais. Using the ultrasound guidance, appreciated a right paratracheal lymph node, measuring about a cm, then a larger 3 to 4 cm mass like density in the suprahilar area The bronchoscope again navigated to the right hilar area where the mass was located using ultrasound guidance. Transbronchial needle aspirations were collected. The pathologist was present, documented carcinoma in the first pass. Therefore, we got additional 5 more passes, The bronchoscope was then removed and replaced with a regular bronchoscopy. A complete airway survey was done up to the segmental level. The patient did have endobronchial disease in the apical segment of the right upper lobe. Therefore, endobrachial brushings were collected there. The patient did have some minimal bleeding and an ampule of epinephrine was used along with Ice saline with good hemostasis. No other endobrachial lesions were noted. Bronchial washings were sent for microbiology and also for cytology. The bronchoscopy was then removed. Total endoscopic time approximately 45 minutes. The patient tolerated the procedure well. Vital signs were stable throughout the procedure. No evidence of any complications. MD DAMEON Lacey/MODL / [id number]
[2024-09-15 04:51] LABS: Glucose, Whole Blood 142 mg/dL (60-115)
== END 2024-09-14 15:48 | disposition home or self-care (01) ==
PROVIDERS: PCP Internal Medicine; Visit Provider Hospitalist
PROC: (CPT 31652; principal; 2024-09-14 13:30)
DX: C34.11 Malignant neoplasm of upper lobe, right bronchus or lung (principal); R59.0 Localized enlarged lymph nodes; Z85.3 Personal history of malignant neoplasm of breast; Z92.21 Personal history of antineoplastic chemotherapy; Z90.12 Acquired absence of left breast and nipple; I10 Essential (primary) hypertension; E78.00 Pure hypercholesterolemia, unspecified; R73.9 Hyperglycemia, unspecified; I48.0 Paroxysmal atrial fibrillation; K21.9 Gastro-esophageal reflux disease without esophagitis; R42 Dizziness and giddiness; Z95.0 Presence of cardiac pacemaker; Z79.01 Long term (current) use of anticoagulants; Z79.899 Other long term (current) drug therapy; Z91.040 Latex allergy status; Z90.49 Acquired absence of other specified parts of digestive tract; Z79.84 Long term (current) use of oral hypoglycemic drugs
CPT/HCPCS: 31652; 31629; 31625; 82947; 87070; 87205; 88112; 88172; 88173; 88305; 88341; 88342; 88360; J0171; J2003; J2704; J3010

== ENCOUNTER → 2024-09-14 11:51 | Outpatient (BNV) | payer MEDICARE, SELFPAY | PROVIDERS: PCP Internal Medicine; Visit Provider Hospitalist | DX: C34.91 Malignant neoplasm of unspecified part of right bronchus or lung (principal); J98.09 Other diseases of bronchus, not elsewhere classified | CPT/HCPCS: 31623; 31625; 31652 ==

== ENCOUNTER 2024-09-16 11:30 | Outpatient (AMB) | payer MEDICARE, SELFPAY ==
--- NOTE | 2024-09-16 11:36 | A.OFFPC_ITS ---
Vital Signs 09/16/24 11:37 Height 5 ft 3 in Weight 115 lb 4 oz BMI 20.4 BP 120/58 L Blood Pressure Location Rt brachial Position Sitting Pulse 65 Pulse Source Pulse Oximeter Temp 96.9 F Temp Source Temporal Artery Scan Pulse Oximetry (%) 98 Oxygen Delivery Method Room Air Intake Visit Reasons: Diabetes follow up Intake Note: Patient is here to follow up on DM. Manager Financial Systems Required: No Nurse Chemical Dependency: Present Accompanied by: Daughter Allergies latex (LATEX) Allergy (Intermediate, Verified 09/16/24 11:37) RASH WITH CONTACT Medication List - Last Reconciled 09/16/24 by Cookie Reyes PA-C blood sugar diagnostic (FreeStyle Lite Strips) twice a day and as needed blood-glucose meter (FreeStyle Lite Meter kit) Test blood sugar twice a day dexamethasone 2 mg PO TID 10 days diltiazem HCl ER 240 mg PO QAM lancets (FreeStyle Lancets) Test blood sugar twice a day lisinopril 20 mg PO DAILY 30 days metformin 500 mg PO BID metoprolol tartrate 50 mg PO BID omeprazole 40 mg PO DAILY oxycodone 5 mg PO Q6H PRN pravastatin 40 mg PO DAILY rivaroxaban (Xarelto) 20 mg PO DAILY Tobacco use date assessed: 09/16/24 Fall risk assessment: No Falls in past year Last assessed Fall Risk: 09/16/24 Dental Screening Dental Screen Date: 06/18/24 [facility] Diabetes follow up HPI Details 68-year-old female with past medical his tory of diabetes mellitus, GERD, hypercholesterolemia, hypertension, DCIS, atrial fibrillation, osteopor osis last seen 06/[address] Carias coming in for follow up. In review of the notes patient was seen by pulmonology 08/2024 for a lung mass advised to stop Xarelto 3 days prior to EBUS/bronchoscopy with biopsy. Presenting with diabetes mellitus. The patient has been managing diabetes mellitus with a recent A1c of 6.8, indicating good control without the need for medication adjustment. The patient has been advised to monitor blood glucose levels, aiming for values below 200 mg/dL, and to adjust dietary intake accordingly. The patient reports persistent blurred vision in the left eye, which has been ongoing for over five weeks. A recent CT scan revealed a lesion in the brain, and the patient is under evaluation by a radiation oncologist. [facility] [place] Medical History Lymphadenopathy, mediastinal Lung mass Colon cancer screening Hyperglycemia Port-A-Cath in place On beta harley at home Abnormal ultrasound of breast Screening for breast cancer PUD (peptic ulcer disease) Essential hypertension PAF (paroxysmal atrial fibrillation) Vertigo Pacemaker (~2008) GERD (gastroesophageal reflux disease) Hypercholesteremia Surgical History History of lung biopsy Hx of colonoscopy History of left mastectomy (07/04/22) History of lumpectomy of left breast History of appendectomy History of permanent cardiac pacemaker placement History of cholecystectomy History of tubal ligation Family History Mother No problems noted. Father No problems noted. 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 1. Little interest or pleasure in doing things: several days 2. Feeling down, depressed, or hopeless: not at all 3. Trouble falling or staying asleep, or sleeping too much: more than half the days 4. Feeling tired or having little energy: more than half the days 5. Poor appetite or overeating: more than half the days 6. Feeling bad about yourself - or that you are a failure or have let yourself or your family down: not at all 7. Trouble concentrating on things, such as reading the newspaper or watching television: not at all 8. Moving or speaking so slowly that other people could have noticed. Or the opposite - being so fidgety or restless that you have been moving around a lot more than usual: not at all 9. Thoughts that you would be better off or of hurting yourself in some way: not at all Total score: 7 Depression Screening Interpretation: Positive Depression Screening Done: Yes Source: Developed by Drs. Nahum Britton, Aster Nguyen, Jl Verdin and colleagues, with an educational jessica from [employer]. Thrive Questionnaire Date Thrive assessed: 09/16/24 I am a: Patient What is your living situation today?: I have a steady place to live Within the past 12 months, did the food you bought not last and you didn't have the money to get more?: Never true Within the past 12 months, did you worry whether your food would run out before you got money to buy more?: Never true Do you have trouble paying for medicines?: No Do you have trouble getting transportation to medical appointments?: No Do you have trouble paying your heating and electricity bill?: No Do you have trouble taking care of your child, family member or friend?: No Do you have trouble with day-to-day activities such as bathing, preparing meals, shopping, managing finances, etc.?: No Are you currently unemployed and looking for a job?: No Are you interested in more education?: I choose not to answer this question Please select the resources that you would like help with: None Currently or been in a relationship where the following occur: No concerns reported THRIVE Score: 0 AUDIT C Alcohol Use Questionnaire (AUDIT-C) 1. How often do you have a drink containing alcohol?: Never Total Score: 0 JOSE-7 AMB Questionnaire JOSE-7 Date JOSE - 7 assessed: 06/18/24 Feeling nervous, anxious, or on edge: 0 = Not at all Not being able to stop or control worryin = Not at all Worrying too much about different things: 0 = Not at all Trouble relaxin = Not at all Being so restless that it is hard to sit still: 0 = Not at all Becoming easily annoyed or irritable: 0 = Not at all Feeling afraid as if something awful might happen: 0 = Not at all Total JOSE-7 score (0-4 normal; 5-9 mild; 10-14 moderate; 15-21 severe): 0 Source: Developed by Drs. Nahum Britton, Aster Nguyen, Jl Verdin and colleagues, with an educational jessica from [employer]. Review of Systems Const Denies body aches, Denies chills, Denies fever(s), Denies headache(s) and Denies poor appetite Eyes Reports no additional complaints ENT Denies dizziness and Denies headache(s) Card Denies chest pain, Denies lightheadedness and Denies dyspnea Resp Denies cough and Denies dyspnea GI Denies abdominal pain, Denies nausea and Denies vomiting Reports no additional complaints Musc Reports no additional complaints and Denies abnormal gait Skin/Breast Reports system reviewed and no additional complaints, except as documented Neuro Denies abnormal gait, Denies dizziness and Denies headache(s) Psych Reports no additional complaints Physical exam (Primary Care) Vital Signs: Last Vital Signs Temp 96.9 F 09/16/24 11:37 Pulse 65 09/16/24 11:37 BP 120/58 L 09/16/24 11:37 Pulse Ox 98 09/16/24 11:37 Oxygen Delivery Method Room Air 09/16/24 11:37 BMI result Body Mass Index 20.4 Tobacco/Smoking Status: Tobacco use Status Tobacco use date assessed 09/16/24 09/16/24 11:48 Patient Tobacco Use Status Never used Tobacco 09/16/24 11:48 Tobacco use type Cigarette 09/16/24 11:48 e-Cigarette/Vaping Use Never Used 09/16/24 11:48 PHQ-9: PHQ-9 Score PHQ-9: Total score 7 09/16/24 12:54 Depression Screening Interpretation: Positive Thrive Assessment: Date of Thrive Assessment Date Thrive assessed 09/16/24 09/16/24 11:48 Currently or been in a relationship where the following occur: No concerns reported Const General: cooperative, healthy appearing, comfortable and no acute distress Orientation/consciousness: patient oriented x3 HENMT Head: Yes normocephalic Ears: hearing grossly normal bilaterally General nose exam: Normal external nose present Eyes General: appearance normal, both eyes and all related structures Conjunctivae: conjunctivae normal Neck Neck: Yes full ROM and Yes no lymphadenopathy Resp Effort & Inspection: normal respiratory effort Auscultation: clear to auscultation bilaterally, no crackles, no rales, no rhonchi and no wheezes Cardio Rate: regular rate Rhythm: regular rhythm Skin General skin exam: no rashes or lesions noted Neuro General: patient oriented x3 Gait exam (Neuro): Normal gait present Extrem General: Yes normal to inspection, Yes full ROM and No edema Psych Affect: normal affect Attitude: cooperative Insight: Good insight present (Psych) Judgement: Good judgement present (Psych) Results AMB Hemoglobin A1c AMB Hemoglobin A1c 6.8 % Last Edit by HEIDI Rodriguez on 09/16/24 11:49 Results Reviewed Results Reviewed: Laboratory Last Values Hgb A1c (Clinic) 6.8 % (4.0-6.0) H 09/16/24 11:36 Coding Level of Care Code Est Pt Level 3 (29249) Diagnoses Essential hypertension I10 PAF (paroxysmal atrial fibrillation) I48.0 Type 2 diabetes mellitus with hyperglycemia E11.65 GERD (gastroesophageal reflux disease) K21.9 Lung mass R91.8 Blurred vision H53.8 Assessment & Plan Assessment & Plan (1) Essential hypertension: Code(s): I10 - Essential (primary) hypertension Category: Medical Plan: Continue on current blood pressure medication. Avoid salt intake and encourage healthy diet and regular exercise. (2) PAF (paroxysmal atrial fibrillation): Code(s): I48.0 - Paroxysmal atrial fibrillation Category: Medical (3) Type 2 diabetes mellitus with hyperglycemia: Code(s): E11.65 - Type 2 diabetes mellitus with hyperglycemia Category: Medical Plan: Decrease the amount of carbohydrates such as pasta, bread, rice, and potatoes and limit the amount of sweets. Although fruits are generally healthy they should be eaten in moderation as they are still high in sugar. Hemoglobin A1c goal of less than 7%. A1c in the clinic today 6.8%. She will continue to monitor blood sugars at home and if exceeds 200 on a regular basis plan to increase metformin to 1000 mg twice daily. (4) GERD (gastroesophageal reflux disease): Code(s): K21.9 - Gastro-esophageal reflux disease without esophagitis Category: Medical Plan: Avoid trigger foods such as citrus, tomato products, soda, caffeine, spicy foods and other foods that may be irritating to your stomach. Avoid laying flat 3-4 hours after eating and elevate the head of the bed 30 degrees to prevent acid from moving into the esophagus. (5) Lung mass: Code(s): R91.8 - Other nonspecific abnormal finding of lung field Category: Medical Plan: Continue to follow with pulmonology planned to have EBUS/bronchoscopy with biopsy. Continue to follow up with pulmonology and Oncology. (6) Blurred vision: Code(s): H53.8 - Other visual disturbances Category: Medical Plan: Patient reporting blurred vision for the past 5 weeks has not been worsening or improving. Recent CAT scan of the head did show lesion in the brain which is currently under investigation. Advised patient to also reach out to her yoga teacher for further evaluation as well. Plan The management of diabetes mellitus involves maintaining the current medication regimen as the patient's A1c is at 6.8%, which is within the target range. The patient is advised to continue monitoring blood glucose levels, particularly aiming to keep them below 200 mg/dL. Dietary modifications are recommended, fo cusing on reducing carbohydrate intake and monitoring for any significant changes in blood glucose readings. If blood glucose levels consistently exceed 200 mg/dL despite dietary adjustments, a review of the medication regimen may be necessary. For the blurred vision and brain lesion, the patient is under evaluation by a radiation oncologist following the discovery of a lesion on a recent CT scan. Further diagnostic workup and treatment planning are pending, based on the results of the PET scan and biopsy. The patient is advised to follow up with an yoga teacher to rule out any primary ocular causes of the blurred vision. This note was constructed using voice recognition software. While every effort has been made to ensure accuracy and dried fruit washer, still areas may have been included sometimes these areas may affect the content or meeting of the given symptoms. Total time spent caring for the patient today was 20 minutes. This includes time spent before the visit reviewing the chart, time spent during the visit, and time spent after the visit and documentation. Patient was informed and verbally consented to the use of an ambient scribe for clinic note documentation during this visit. Orders: Orders AMB Hemoglobin A1c Today E11.65 - Type 2 diabetes mellitus with hyperglycemia Medications: Changed From lancets (FreeStyle Lancets) Test blood sugar twice a day E11.65 - Type 2 diabetes mellitus with hyperglycemia To lancets (FreeStyle Lancets) As Directed 100 ea 0RF E11.65 - Type 2 diabetes mellitus with hyperglycemia From blood-glucose meter (FreeStyle Lite Meter kit) Test blood sugar twice a day E11.65 - Type 2 diabetes mellitus with hyperglycemia To blood-glucose meter (FreeStyle Lite Meter kit) As Directed 1 ea 0RF E11.65 - Type 2 diabetes mellitus with hyperglycemia Refilled oxycodone Partial Fill upon patient request. 5 mg PO Q6H PRN 30 tabs 0RF Pain (Scale Score 7-10)
[2024-09-16 11:37] VITALS: BP 120/58; PULSE 65; TEMP 36.1; O2SAT 98; BMI 20.4
== END 2024-09-16 12:10 | disposition home or self-care (01) ==
LOC: HO.HMCH 11:31
PROVIDERS: PCP Internal Medicine
DX: E11.65 Type 2 diabetes mellitus with hyperglycemia (principal)

== ENCOUNTER → 2024-09-16 11:30 | Outpatient (BNVA) | payer MEDICARE, SELFPAY | PROVIDERS: PCP Internal Medicine | DX: E11.65 Type 2 diabetes mellitus with hyperglycemia (principal); I10 Essential (primary) hypertension; I48.0 Paroxysmal atrial fibrillation; K21.9 Gastro-esophageal reflux disease without esophagitis; E78.00 Pure hypercholesterolemia, unspecified; M81.0 Age-related osteoporosis without current pathological fracture; R91.8 Other nonspecific abnormal finding of lung field; H53.8 Other visual disturbances | CPT/HCPCS: 83036; 96127; 99212 ==

== ENCOUNTER → 2024-09-24 13:01 | Outpatient (REF) | payer MEDICARE, SELFPAY ==
--- OUTSIDE RECORDS SUMMARY | 2024-09-24 13:03 | XMS_ITS | Clinical Summary ---
Author Organization 175 [facility] Address [address] [place] [address] Phone Care Team Providers Care Perinatal Breastfeeding Assistant Name Role Phone Maurilio Carias MD Primary Care Provider [phone] Allergies Active Allergy Reactions Criticality Noted Date Comments Latex 09/10/2024 Medications blood sugar diagnostic (FreeStyle Lite Strips) test strip 5 Active FreeStyle Lite Meter monitoring kit 5 Active cefpodoxime (VANTIN) 200 mg tablet 5 Active dilTIAZem (TIAZAC) 240 mg 24 hr capsule 5 Active glipiZIDE (GLUCOTROL) 10 mg tablet 5 Active FreeStyle Lancets 28 gauge lancets 5 Active lisinopriL (PRINIVIL,ZESTR IL) 20 mg tablet 5 Active metoprolol tartrate (LOPRESSOR) 50 mg tablet 5 Active metFORMIN (GLUCOPHAGE) 500 mg tablet 5 Active omeprazole (PriLOSEC) [address] capsule 5 Active oxyCODONE (ROXICODONE) 5 mg immediate release tablet 5 Active pravastatin (PRAVACHOL) 40 mg tablet 5 Active Xarelto 20 mg tablet 5 Active dexAMETHasone (DECADRON) 2 mg tablet Take 1 tablet (2 mg total) by mouth 2 (two) times a day. 60 each 5 10/16/19 25 Active dexAMETHasone (DECADRON) 2 mg tablet 5 09/16/19 25 Discontinu ed(Reorder ) Active Problems Problem Noted Date Diagnosed Date Breast cancer metastasized t o brain (CMS/[facility] V24, CMS/[facility] V28) 09/15/2024 PAF (paroxysmal atrial fibri llation) (CMS/HCC V24, CMS/HCC V28) 09/12/2022 Overview (09/10/2024): Last Assessment & Plan: This 66-year-old female with sick sinus syndrome, persistent atrial fibrillation with tachycardia-bradycardia syndrome and syncope now presents with the need for radiation therapy to the left chest to treat invasive ductal breast cancer and her pacemaker is in the radiation field.Dr Neumann feels that the pacemaker will limit the necessary radiation to the chest and that the device needs to be moved. I did recommend removing the device and capping the leads with placement of a leadless pacemaker. The heart will generally be shielded during the radiation treatments and we can follow the new device closely in the device clinic through the radiation treatment schedule. I discussed the procedure and the potential risks. She understands a small risk of venous access complications, device embolization and cardiac perforation and tamponade with placement of a leadless device. There is a small risk of premature battery depletion and need for additional devices. I do not see a strong need to remove the pacemaker leads and given the increased risk and complexity of arranging for that procedure I would proceed with capping of the leads only. She agrees to proceed I will try and expedite this as possible. I will have her hold her Xarelto given the large sheath that will be placed in the femoral vein prior to the procedure. Hx of cardiac pacemaker 09/12/2022 HLD (hyperlipidemia) 09/12/2022 Encounters Date Type Department Care Team Description 09/21/2024 Telephone Neurosurgery [facility] [address] [place] [address] Felicia Carranza PA 09/16/2024 7:26 AM EDT Hospital Encounter [facility] PET Scan [address] [place] [address] Lung mass; 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 ([facility] V24, [facility] V28) 09/15/2024 12:40 PM EDT - 09/15/2024 11:59 PM EDT Hospital Encounter [facility] Radiation Oncology [address] [place] [phone] Yarely Bird MD Breast cancer metastasized to brain ([facility] V24, [facility] V28) (Primary Dx); Secondary malignant neoplasm of brain ([facility] V24, [facility] V28) Discharge Disposition: Home or Self Care 09/15/2024 12:29 PM EDT - 09/15/2024 11:59 PM EDT Hospital Encounter [facility] Radiation Oncology [address] [place] [phone] Discharge Disposition: Home or Self Care 09/11/2024 10:30 AM EDT Consult Neurosurgery [facility] [address] [phone] Felicia Carranza PA Primary breast malignancy, left ([facility] V24, [facility] V28) 09/10/2024 Telephone [facility] Radiation Oncology [address] [place] [phone] Diana Jorge MA 09/09/2024 Telephone [facility] Radiation Oncology [address] [place] [phone] Diana Jorge MA 09/09/2024 Telephone [facility] Radiation Oncology [address] [place] [phone] Diana Jorge MA 09/07/2024 Telephone [facility] Radiation Oncology [address] [place] [phone] Diana Jorge MA from Last 3 Months Surgical History Surgery Date Site/Laterality Comments COLONOSCOPY MASTECTOMY Left left - 07/04/22 BREAST LUMPECTOMY Left left breast APPENDECTOMY CARDIAC PACEMAKER PLACEMENT CHOLECYSTECTOMY TUBAL LIGATION Medical History Medical History Date Comments Hyperglycemia PUD (peptic ulcer disease) Essential hypertension PAF (paroxysmal atrial fibri llation) ([facility] V24, [facility] V28) Vertigo Pacemaker GERD (gastroesophageal reflux disease) Hypercholesteremia Breast cancer ([facility] V24, [facility] V28) 10/2021 Left infiltrating ductal carcinoma, triple negative breast cancer, Dr. Lynn Family History Relation Name Status Comments Father Mother Social History Tobacco Use Types Packs/Day Years Used Date Smoking Tobacco: Never Passive Smoke Exposure: Never Smokeless Tobacco: Never Alcohol Use Standard Drinks/Week Comments Not Currently 0 (1 standard drink = 0.6 oz pur e alcohol) Comments Unknown Sex and Gender Information Value Date Recorded Sex Assigned at Not on file Legal Sex Female 10:36 AM EST Gender Identity Not on file Sexual Orientation Not on file Obstetrics History Last Filed Vital Signs Vital Sign Reading Time Taken Comments Blood Pressure 100/56 09/15/2024 12:56 PM EDT Pulse 66 09/15/2024 12:56 PM EDT Temperature 36.6 C (97.8 F) 09/15/2024 12:56 PM EDT Respiratory Rate 16 09/15/2024 12:5 6 PM EDT Oxygen Saturation 100% 09/15/2024 12: 56 PM EDT Inhaled Oxygen Concentration - - Weight 52.1 kg (114 lb 12.8 oz) 025 12:56 PM EDT Height 160 cm (5' 3 ) 09/11/2024 10:42 AM EDT Body Mass Index 20.34 09/11/2024 10:42 AM EDT Plan of Treatment Upcoming Encounters Date Type Department Care Team (Late st Contact Info) Description 09/29/2024 9:15 AM EDT Appointment [facility] Radiation Oncology [address] [place] [phone] 09/29/2024 10:00 AM EDT Appointment [facility] Radiation Oncology [address] [place] [phone] Johnathan Stearns MD [address] [place] [address] Health Maintenance Due Date Last Done Comments Breast Cancer Screening 1955 DTaP,Tdap,and Td Vaccines (1 - Tdap) 1973 Zoster Vaccines (1 of 2) 1973 RSV Immunization Adult Patients (1 - Risk 60-74 years 1-dose series) 2014 Cholesterol Screening (Lipid Panel) 02/19/2022 Colorectal Cancer Screening: Colonoscopy 02/19/2022 Depression Screening 02/19/2022 Falls Risk Assessment 02/19/2022 Hepatitis C Screening 02/19/2022 Medicare Annual Wellness Visit 02/19/2022 Osteoporosis Screening (Bone Density Screening) 02/19/2022 Social Influencers of Health Screening 02/19/2022 COVID-19 Vaccine (5 - Pfizer risk season) 2024 01/07/2024, 02/21/2021, 07/05/2020, Additional history exists Influenza Vaccine (#1) 2024 , 01/07/2023, 01/02/2021, Additional history exists Pneumococcal Vaccine: 50+ Years Completed 03/16/2024 HIB Vaccines Aged Out No longer eligi ble based on patient's age to complete this topic HPV Vaccines Aged Out No longer eligi ble based on patient's age to complete this topic Hepatitis A Vaccines Aged Out No long er eligible based on patient's age to complete this topic Hepatitis B Vaccines Aged Out No long er eligible based on patient's age to complete this topic IPV Vaccines Aged Out No longer eligi ble based on patient's age to complete this topic MMR Vaccines Aged Out No longer eligi ble based on patient's age to complete this topic Meningococcal ACWY Vaccine Aged Out N o longer eligible based on patient's age to complete this topic Meningococcal B Vaccine Aged Out No l onger eligible based on patient's age to complete this topic RSV Immunization Patients Under 20 months Aged Out No longer eligible based on patient's age to complete this topic Varicella Vaccines Aged Out No longer eligible based on patient's age to complete this topic Procedures Procedure Name Priority Date/Time Associated Diagnosis Comments PET CT SKULL TO MID THIGH INITIAL Routine 09/16/2024 9:41 AM EDT Lung mass 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 (CMS/HCC V24, CMS/HCC V28) from Last 3 Months Results * PET CT Skull to Mid Thigh Initial (09/16/2024 9:41 AM EDT) Anatomical Region Laterality Modality Body Radiographic Jacinta ging 09/22/2024 4:48 AM EDT Impressions 09/22/2024 5:23 AM EDT 1. FDG avid right upper lobe/perihilar lung mass either representing primary lung neoplasm or metastatic disease 2. FDG avid mediastinal and hilar lymphadenopathy suspicious for metastatic disease 3. FDG activity in the right supraclavicular and left retropectoral/axillary region which may represent metastatic disease Please note: The CT was acquired at a low radiation dose settings. The images are of nondiagnostic quality and used solely for purposes of attenuation correction and slice localization for the PET scan. If a diagnostic CT study is desired it must be ordered separately. -------- FINAL REPORT -------- Dictated By: Elaina Gardiner Dictated Date: 09/22/2024 04:48 ET Assigned Physician: Elaina Gardiner Reviewed and Electronically Signed By: Elaina Gardiner Signed Date: 09/22/2024 05:23 ET Workstation ID: [id number] Transcribed By: Self Edit Transcribed Date: 09/22/2024 04:48 ET Narrative 09/22/2024 5:23 AM EDT INDICATION: According to the electronic medical record, history of left breast cancer status post chemoradiation therapy as well as left breast mastectomy and lymph node dissection in 2022. Outside chest CT demonstrating right lung mass in the right upper lobe with mediastinal lymphadenopathy as well as left infrahilar lymph node. Hepatosplenomegaly. TECHNIQUE: FDG PET-CT imaging was performed from the skull bases through the thighs in a single acquisition with data set reconstructed in axial, coronal, and sagittal planes at the computer workstation with fused data from both the PET imaging study and attenuation correction CT. The CT portion of the examination was done strictly for attenuation correction and is not a true diagnostic CT examination. DLP: 316 mGy-cm Radiopharmaceutical: 11.7 mCi of F-18 FDG IV. Blood glucose: 198 mg/dl. COMPARISON: None. Outside images are not available for review. CT of the chest, abdomen and pelvis dated 08/2024 are available for review. FINDINGS: HEAD AND NECK: Focal asymmetric activity in the right supraclavicular region SUV max 3.4. THORAX: FDG avid right upper lobe/perihilar lung mass SUV max 10. FDG avid thoracic lymphadenopathy. For example, anterior mediastinal SUV max 4.9, right paratracheal SUV max 8, right hilar SUV max 7, left infrahilar SUV Max 6 (mediastinal blood pool SUV Max 3.3). Postsurgical appearance of the left breast and left axilla. Asymmetric focal activity in the left retropectoral/axillary region which may correspond to crhistiano activity measuring up to SUV Max 4.2. Left-sided subclavian approach pacing device. Right-sided Port-A-Cath with tip in the cavoatrial junction. Thoracic aortic calcifications. ABDOMEN/PELVIS: Nonspecific bowel activity. No significant FDG avid abdominal or pelvic lymphadenopathy. Status post cholecystectomy. Atherosclerosis. MUSCULOSKELETAL: No abnormal FDG activity. Procedure Note Elaina Gardiner MD - 09/22/2024 INDICATION: According to the electronic medical record, history of leftbreast cancer status post chemoradiation therapy as well as left breastmastectomy and lymph node dissection in 2022. Outside chest CTdemonstrating right lung mass in the right upper lobe with mediastinallymphadenopathy as well as left infrahilar lymph node.Hepatosplenomegaly. TECHNIQUE: FDG PET-CT imaging was performed from the skull bases throughthe thighs in a single acquisition with data set reconstructed in axial,coronal, and sagittal planes at the computer workstation with fused datafrom both the PET imaging study and attenuation correction CT. The CTportion of the examination was done strictly for attenuation correctionand is not a true diagnostic CT examination. DLP: 316 mGy-cm Radiopharmaceutical: 11.7 mCi of F-18 FDG IV. Blood glucose: 198 mg/dl. COMPARISON: None. Outside images are not available for review. CT of thechest, abdomen and pelvis dated 08/2024 are available for review. FINDINGS: HEAD AND NECK: Focal asymmetric activity in the right supraclavicularregion SUV max 3.4. THORAX: FDG avid right upper lobe/perihilar lung mass SUV max 10. FDG avid thoracic lymphadenopathy. For example, anterior mediastinal SUVmax 4.9, right paratracheal SUV max 8, right hilar SUV max 7, leftinfrahilar SUV Max 6 (mediastinal blood pool SUV Max 3.3). Postsurgical appearance of the left breast and left axilla. Asymmetricfocal activity in the left retropectoral/axillary region which maycorrespond to christiano activity measuring up to SUV Max 4.2. Left-sided subclavian approach pacing device. Right-sided Azey-G-Ikkhomzv tip in the cavoatrial junction. Thoracic aortic calcifications. ABDOMEN/PELVIS: Nonspecific bowel activity. No significant FDG avidabdominal or pelvic lymphadenopathy. Status post cholecystectomy.Atherosclerosis. MUSCULOSKELETAL: No abnormal FDG activity. IMPRESSION: 1. FDG avid right upper lobe/perihilar lung mass either representingprimary lung neoplasm or metastatic disease 2. FDG avid mediastinal and hilar lymphadenopathy suspicious formetastatic disease 3. FDG activity in the right supraclavicular and leftretropectoral/axillary region which may represent metastatic disease Please note: The CT was acquired at a low radiation dose settings. The images are ofnondiagnostic quality and used solely for purposes of attenuationcorrection and slice localization for the PET scan. If a diagnostic CTstudy is desired it must be ordered separately. -------- FINAL REPORT -------- Dictated By: Elaina Gardiner Dictated Date: 09/22/2024 04:48 ET Assigned Physician: Elaina Gardiner Reviewed and Electronically Signed By: Elaina Gardiner Signed Date: 09/22/2024 05:23 ET Workstation ID: [id number] Transcribed By: Self Edit Transcribed Date: 09/22/2024 04:48 ET Renate Mcgill MD IM NM PROCEDURES Final Result from Last 3 Months Insurance [employer] - [place] MEDICARE [place] Care Teams Perinatal Breastfeeding Assistant Relationship Specialty Start Date End Date Maurilio Carias MD [address] [place] [address] [address] [facility] [place] [address] PCP - General 09/12/22
--- NOTE | 2024-09-24 13:09 | CA_ITS ---
Transthoracic Echocardiogram Patient (Last, First, Middle): Lupe Thomas Y Gender: Female Date of : 1955 Age: 68 Procedure Date: 09/24/2024 Procedure Type: Transthoracic Echocardiogram Location: OP Height: 160.02 cm Weight: 53.07 kg BSA: 1.54 m2 Heart Rate: bpm BP: 90 / 60 mmHg Vice President Digital Strategist: TO Referring MD: Renate Mcgill MD Symptoms: Pre chemo evaluation Study Quality: Fair Conclusions: - Normal left ventricular size and systolic function. There is mildly increased left ventricular wall thickness. The visually estimated ejection fraction is between 55-60%. Reduced global longitudinal strain 16.5%. - Diastolic function is indeterminate on the basis of available data. - Normal right ventricular cavity size. There is low normal right ventricular systolic function. There is a pacemaker wire seen in the right ventricle. - The left atrium is moderately dilated. The right atrium is mildly dilated. Findings Left Ventricle Normal left ventricular size and systolic function. There is mildly increased left ventricular wall thickness. The visually estimated ejection fraction is between 55-60%. There is no evidence of regional wall motion abnormalities. Diastolic function is indeterminate on the basis of available data. Right Ventricle Normal right ventricular cavity size. There is low normal right ventricular systolic function. There is a pacemaker wire seen in the right ventricle. Atria The left atrium is moderately dilated. The right atrium is mildly dilated. Aortic Valve Normal aortic valve structure and function. There is no aortic valve stenosis. There is no aortic valve regurgitation. Mitral Valve The mitral valve appears normal. There is no mitral valve regurgitation. There is no mitral valve stenosis. Pulmonic Valve The pulmonic valve is normal. There is no pulmonic valve regurgitation. Tricuspid Valve Normal tricuspid valve structure. There is moderate tricuspid valve regurgitation. Normal right atrial pressure. There is no evidence of pulmonary hypertension. Great Vessels All visible segments of the aorta are normal in size. The visualized portions of the pulmonary artery and branches are normal. Venous The inferior vena cava is normal in size and collapses greater than 50% with inspiration. Pericardium/Pleural There is no evidence of pericardial effusion. Prior Study Comparison No significant change compared to prior study dated: 05/25/2022. Measurements 2D Linear Measurements IVSd: 1.18 0.6-0.9/0.6-1.0 cm LVIDd: 3.73 3.9-5.3/4.2-5.9 cm LVIDd Index: 2.42 2.4-3.2/2.2-3.1 cm/m2 LVIDs: 2.58 2.0-3.6 cm LVPWd: 0.90 0.7-1.1 cm LA Diam: 3.50 2.7-3.8/3.0-4.0 cm LAIDs Index: 2.27 1.5-2.3 cm/m2 LV Mass: 149.89 67-162/88-224 g LV Mass Index: 97.33 43-95/49-115 g/m2 LVOT Diam: 1.90 3.0+(-)1.3 cm Mitral Valve MV Pk E: 0.78 MV Decel Time: 215.00 E'Lateral: 8.16 E'Medial: 6.09 E/E' Med: 12.70 E/E' Lat: 9.50 PHT: 63.00 MVA PHT: 3.49 Decel Barrow: 3.61 Aortic Valve AoV Pk Jose: 1.22 AoV Mn Jose: 0.75 AoV VTI: 0.21 AoV Pk Grad: 6.00 Aov Mn Grad: 3.00 ANASTASIIA Cont.VTI: 2.33 LVOT LVOT Pk Jose: 0.85 LVOT Mn Jose: 0.54 LVOT VTI: 0.17 LVOT Pk Grad: 3.00 LVOT Mn Grad: 1.00 LVOT Diam: 1.90 LVOT Area: 2.84 Diastolic Function MV Pk E: 0.78 E'Medial: 6.09 E/E' Med: 12.70 E' Laterial: 8.16 E/E' Lat: 9.50 Right Ventricle TAPSE (mm): 15.40 TVS' Jose: 9.25 Tricuspid Valve TR Pk Jose: 2.39 TR Pk Grad: 23.00 RA Press: 3.00 RVSP: 26.00 Great Vessels Aorta Sinus of Valsalva: 2.77 2.0-3.5 cm Ao Asc: 3.20 2.1-3.4 cm Updated in Other Vendor System with Status of Final Toribio Lau MD electronically signed on 09/27/2024 9:07:28 PM with status of Final
== END ==
LOC: HO.CARD 13:01
PROVIDERS: Visit Provider Internal Medicine
DX: C50.912 Malignant neoplasm of unspecified site of left female breast (principal)
CPT/HCPCS: 93306

== ENCOUNTER → 2024-09-24 13:09 | Outpatient (BNV) | payer MEDICARE, SELFPAY | PROVIDERS: Visit Provider Internal Medicine Cardiovascular Disease | DX: Z01.818 Encounter for other preprocedural examination (principal) | CPT/HCPCS: 93306 ==

== ENCOUNTER → 2024-10-26 11:06 | Outpatient (REF) | payer MEDICARE, SELFPAY ==
--- OUTSIDE RECORDS SUMMARY | 2024-10-23 14:16 | XMS_ITS | Encounter Summary ---
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 Go to front office secretary for follow up appointment. 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
--- NOTE | 2024-10-26 11:13 | CA_ITS ---
Transthoracic Echocardiogram Patient (Last, First, Middle): Lupe Thomas Y Gender: Female Date of : 1955 Age: 68 Procedure Date: 10/26/2024 Procedure Type: Transthoracic Echocardiogram Location: OP Height: 160.02 cm Weight: 52.16 kg BSA: 1.53 m2 Heart Rate: bpm BP: 93 / 50 mmHg Cheesemaker: LUANA Referring MD: Renate Mcgill MD Symptoms: Evaluate ejection fraction, hypotension, on chemo Study Quality: Fair, strain not obtained tyler to afib ECG Rhythm: Atrial Fibrillation Conclusions: - The left ventricular systolic function is normal. The visually estimated ejection fraction is between 55-60%. Findings Left Ventricle Normal left ventricular cavity size. The left ventricular systolic function is normal. The visually estimated ejection fraction is between 55-60%. Venous The inferior vena cava is normal in size and collapses greater than 50% with inspiration. Prior Study Comparison No significant change compared to prior study dated: 09/24/2024. Measurements 2D Linear Measurements IVSd: 0.89 0.6-0.9/0.6-1.0 cm LVIDd: 3.73 3.9-5.3/4.2-5.9 cm LVIDd Index: 2.44 2.4-3.2/2.2-3.1 cm/m2 LVIDs: 2.39 2.0-3.6 cm LVPWd: 0.88 0.7-1.1 cm LA Diam: 3.10 2.7-3.8/3.0-4.0 cm LAIDs Index: 2.03 1.5-2.3 cm/m2 LV Mass: 118.78 67-162/88-224 g LV Mass Index: 77.63 43-95/49-115 g/m2 LVOT Diam: 2.00 3.0+(-)1.3 cm 2D Systolic Function EF 4C: 48.60 >55% EF 2C: 62.90 >55% EF BiP: 57.40 >55% LVOT LVOT Pk Jose: 0.83 LVOT Mn Jose: 0.54 LVOT VTI: 0.14 LVOT Pk Grad: 3.00 LVOT Mn Grad: 1.00 LVOT Diam: 2.00 LVOT Area: 3.14 Tricuspid Valve RA Press: 3.00 Updated in Other Vendor System with Status of Final David Ellis MD electronically signed on 10/26/2024 12:20:58 PM with status of Final
== END ==
LOC: HO.CARD 11:06
PROVIDERS: Visit Provider Internal Medicine
DX: C50.912 Malignant neoplasm of unspecified site of left female breast (principal)
CPT/HCPCS: 93308

== ENCOUNTER → 2024-10-26 11:13 | Outpatient (BNV) | payer MEDICARE, SELFPAY | PROVIDERS: Visit Provider Internal Medicine | DX: I48.91 Unspecified atrial fibrillation (principal) | CPT/HCPCS: 93308 ==

== ENCOUNTER 2024-10-27 07:16 | Inpatient (IN) | payer MEDICARE, SELFPAY ==
--- OUTSIDE RECORDS SUMMARY | 2024-10-23 14:16 | XMS_ITS | Encounter Summary ---
Author Organization [employer] Address [address] [place] [address] Care Team Providers Care Simulation Analyst Name Role Phone Maurilio Carias MD Primary Care Provider [phone] Reason for Visit * Reason Comments OTV discharge Encounter Details Date Type Department Care Team (Latest Contact Info) Description 10/23/2024 2:16 PM EDT - 10/23/2024 11:59 PM EDT Hospital Encounter [facility] Radiation Oncology [address] [place] [address] Yarely Bird MD [address] [place] [address] 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 (CMS/HCC V24, CMS/HCC V28) (Primary Dx) Discharge Disposition: Home or Self Care Social History Tobacco Use Types Packs/Day Years Used Date Smoking Tobacco: Never Passive Smoke Exposure: Never Smokeless Tobacco: Never Alcohol Use Standard Drinks/Week Comments Not Currently 0 (1 standard drink = 0.6 oz pur e alcohol) Comments Unknown Sex and Gender Information Value Date Recorded Sex Assigned at Female 10/01/2024 12:38 PM EDT Legal Sex Female 10:36 AM EST Gender Identity Female 10/01/2024 12:38 PM EDT Sexual Orientation Straight 10/01/2024 12 :38 PM EDT documented as of this encounter Medications at Time of Discharge blood sugar diagnostic (FreeStyle Lite Strips) test strip 09/10/2024 cefpodoxime (VANTIN) 200 mg tablet 08/31/2024 dilTIAZem (TIAZAC) 240 mg 24 hr capsule 08/19/2024 FreeStyle Lancets 28 gauge lancets 09/10/2024 FreeStyle Lite Meter monitoring kit 09/10/2024 glipiZIDE (GLUCOTROL) 10 mg tablet 09/09/2024 lisinopriL (PRINIVIL,ZESTRIL ) 20 mg tablet 09/04/2024 metFORMIN (GLUCOPHAGE) 500 mg tablet 09/10/2024 metoprolol tartrate (LOPRESSOR) 50 mg tablet 07/08/2024 omeprazole (PriLOSEC) [address] capsule 08/19/2024 oxyCODONE (ROXICODONE) 5 mg immediate release tablet 09/02/2024 pravastatin (PRAVACHOL) 40 mg tablet 06/20/2024 Xarelto 20 mg tablet 08/12/2024 dexAMETHasone (DECADRON) 2 mg tablet TAKE ONE TABLET BY MOUTH TWICE A DAY 60 tablet 10/05/2024 diphenhydramine-a luminum-magnesium -simethicone-lido addi (MAGIC MOUTHWASH) [phone] mg/30 mL liquid suspension Use 10 mL in the mouth or throat 3 (three) times a day if needed. ondansetron (ZOFRAN) 8 mg tablet Take 1 tablet (8 mg total) by mouth every 8 (eight) hours if needed for nausea or vomiting. documented as of this encounter Discharge Disposition Disposition Code Departure Means Destination Home or Self Care documented in this encounter Progress Notes * Yarely Bird MD - 10/23/2024 2:25 PM EDT Radiation Oncology Treatment Completion Patient Name: Lupe Thomas Date of : 1955 Attending Physician: Yarely Bird MD Diagnosis / Cancer Staging No matching staging information was found for the patient. History: Stage IV breast cancer with solitary brain met Site Summary: Radiation Therapy: Brain Treatment Period Technique Fraction Dose Fractions Total Dose Course 1 10/19/2024-10/23/2024 (days elapsed: 4) Right Frontal Lobe 10/19/2024-10/23/2024 SRS/SRT_VMAT 900 / 900 cGy 2700 / 2,700 cGy Intent: palliative Treatment Description: SRS CT Treatment Outcome: Completed as planned Disease Response to Treatment: Will be assessed at time of follow-up Follow-up Plan: Return to Radiation Oncology follow up in 4-6 weeks * Megan Marquez RN - 10/23/2024 2:25 PM EDT Discharge Instructions after Radiation Treatments Side effects present at the end of treatment will usually improve in a few weeks. If you developed a skin reaction, it may continue to worsen for the next 7-10 days. Continue to be gentle with your skin. Your skin will be more sensitive to sunburn. Protect yourself from the sun. If needed, use sunscreen at least SPF 30. Fatigue and weakness may continue for several weeks. Be sure to get plenty of rest. Plan your activities accordingly. Continue healthy eating habits. Stay well hydrated, drink plenty of fluids. Follow-up visits will be scheduled so your Radiation physician can monitor your progress. Follow up in 4 - 6 weeks. Go to front line leader for follow up appointment. Please call [phone] and select option #2 with any questions or concerns prior to your next visit. * Evelina Valdes RN - 10/23/2024 2:25 PM EDTEncounter addended by: Evelina Valdes RN on: 10/23/2024 3:01 PM Actions taken: Clinical Note Signed * Evelina Valdes RN - 10/23/2024 2:25 PM EDT Met with pt and her daughter for discharge. Reviewed written discharge instructions and questions answered. Pt was instructed to make a 4-6 week follow up appt upon leaving and to call with any questions or concerns. Pt verbalized understanding. documented in this encounter Plan of Treatment Upcoming Encounters Date Type Department Care Team (Late st Contact Info) Description 11/27/2024 8:30 AM EDT Appointment [facility] Radiation Oncology [address] [place] [address] Yarely Bird MD [address] [place] [address] documented as of this encounter Visit Diagnoses Diagnosis 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 (CMS/HCC V24, CMS/HCC V28)- Primary documented in this encounter Care Teams Simulation Analyst Relationship Specialty Start Date End Date Maurilio Carias MD [address] [place] [address] [address] [facility] [place] [address] PCP - General 09/12/22 documented as of this encounter
[2024-10-27] VITALS (26 sets, daily range): BP systolic 89–143; BP diastolic 40–81; PULSE 78–139; RESP 20–28; TEMP 36.6–38.8; O2SAT 77–97; BMI 19.7
--- NOTE | ~2024-10-27 | XR_ITS ---
EXAMINATION: XR CHEST CLINICAL INFORMATION: hypoxia COMPARISON: 11/02/2024, 10/29/2024, 10/28/2024. TECHNIQUE: Frontal view of the chest was obtained. FINDINGS: Right chest port in place in stable position in the distal SVC. Dependent pacer leads present in the right atrium and right ventricle. Cardiac monitoring device overlying the left heart shadow. There is stable cardiac enlargement. The mediastinal and hilar contours are unchanged. There is a large right upper lobe masslike opacity again demonstrated, without change. There is parenchymal opacity throughout the right base, and throughout the left lung, without significant change. There is no definite pneumothorax. No focal osseous or soft tissue abnormality. XR/XR chest 1V IMPRESSION: 1. Lines and tubes in stable position. 2. No significant interval change in the appearance of the thorax. Electronically signed by: Minor Sim MD 11/04/2024 08:51 AM EDT
--- NOTE | ~2024-10-27 | XR_ITS ---
EXAMINATION: XR CHEST CLINICAL INFORMATION: hypoxia COMPARISON: From one day earlier TECHNIQUE: Frontal view of the chest was obtained. FINDINGS: Again noted is right-sided port with catheter terminating in the superior cavoatrial junction. Abandoned pacemaker leads terminating in the right atrium and right ventricle. Again seen is dense opacity in the right middle third and lower third lung zones. There is groundglass and airspace opacity in the left lung, more pronounced centrally. There is elevation of the right humeral head with severe narrowing of the subacromial space. XR/XR chest 1V IMPRESSION: Stable multifocal pulmonary parenchymal abnormalities suspicious for pneumonia with known right upper lobe mass. Electronically signed by: Otf Haji MD 11/05/2024 01:11 PM EDT
--- NOTE | ~2024-10-27 | CT_ITS ---
EXAMINATION: CT CHEST ANGIOGRAPHY WITH IV CONTRAST INDICATION: Hypoxia, stage 4 breast cancer COMPARISON: Comparison is made with the prior examination dated 08/31/2024. TECHNIQUE: Helical CT scan of the chest was performed following administration of intravenous contrast (65 mL Omnipaque 350). The contrast bolus was timed to optimally opacify the pulmonary arteries. Thin sections were obtained through the pulmonary arteries. Coronal and sagittal reformatted images were generated. 3D/MIP reconstructed images are also obtained and reviewed. This CT exam was performed with one or more of the following dose reduction techniques: automated exposure control, adjustment of the mA and/or kV according to patient size, use of iterative reconstruction technique. DLP: 332 mGy-cm CHEST: PULMONARY ARTERIES: No intraluminal filling defects are identified within the pulmonary arteries to suggest pulmonary emboli. LUNGS: Again seen is a soft tissue mass in the right upper lobe measuring approximately 5.4 x 5.9 x 5.2 cm. There are diffuse confluent airspace opacities throughout all lobes of both lungs. MEDIASTINUM: There is no mediastinal lymphadenopathy. SARAH: There is no hilar lymphadenopathy. CARDIOVASCULATURE: The heart is enlarged. There is no pericardial effusion. The thoracic aorta is normal in caliber. A right-sided port is seen in place. DEGREE OF CORONARY CALCIFICATION: none PLEURA: There are tiny bilateral pleural effusions. No pneumothorax. MAIN AIRWAYS: The mainstem bronchi and proximal branches are patent. AXILLA: There is no axillary lymphadenopathy. UPPER ABDOMEN: The visualized portions of the liver, spleen, and adrenals are unremarkable. BONES AND SOFT TISSUES: The patient is status post left mastectomy. The bones are intact. CT/CT angio chest PE protocol IMPRESSION: 1. No evidence of pulmonary emboli. 2. Known 5.4 x 5.9 x 5.2 cm right upper lobe mass. 2. Diffuse confluent bilateral airspace opacities. Differential diagnostic considerations include pulmonary edema, diffuse pneumonia, or hemorrhage. Clinical correlation is recommended. Electronically signed by: Nahum Solano MD 10/27/2024 03:21 PM EDT
--- NOTE | ~2024-10-27 | XR_ITS ---
EXAMINATION: XR CHEST 1 VIEW HISTORY: SOB COMPARISON: Comparison is made with the prior examination dated 09/03/2024. FINDINGS: A single AP portable view of the chest performed at 7:57 AM is submitted. A right-sided port is unchanged in position. An implantable loop recorder is again noted in the left anterior chest wall. Again seen is a right upper lobe mass. There is new airspace opacity in the right middle lobe, consistent with pneumonia. The left lung is clear. There is no pleural effusion, pneumothorax, or pulmonary vascular congestion. The heart is normal in size given technique. The bones are intact. XR/XR chest 1V IMPRESSION: 1. Known right upper lobe mass. 2. Airspace opacity in the right middle lobe, consistent with pneumonia. Electronically signed by: Nahum Solano MD 10/27/2024 08:11 AM EDT
--- NOTE | ~2024-10-27 | XR_ITS ---
CLINICAL HISTORY: Chest pain 1 view chest x-ray Comparison: CT/SR - CT CHEST ANGIOGRAPHY WITH IV CONTRAST - 10/27/24 14:53 EDT CR/SR - XR CHEST 1V - 10/27/24 07:57 EDT Findings: Right upper lobe mass with bilateral consolidations, similar to the earlier CT. Trace bilateral effusions. No pneumothorax. Cardiomediastinal silhouette is stable. Right IJ MediPort catheter tip is in the SVC. Retained left subclavian pacemaker leads. IMPRESSION: Right upper lobe mass with bilateral consolidations, similar to the earlier CT. This document has been electronically signed by: Justin Molina MD on 10/28/2024 18:39:47
--- NOTE | ~2024-10-27 | XR_ITS ---
CLINICAL HISTORY: Respiratory distress 1 view chest x-ray Comparison: CR - XR CHEST 1V - 10/28/24 17:46 EDT Findings: Patchy diffuse consolidation in both lungs. Moderate cardiomegaly. No acute fracture. IMPRESSION: 1. Moderate cardiomegaly and patchy diffuse consolidation in both lungs may represent pulmonary edema or multifocal pneumonia, Unchanged in the interval. This document has been electronically signed by: Petros Garsia MD on 10/29/2024 19:20:34
--- NOTE | ~2024-10-27 | XR_ITS ---
EXAMINATION: XR CHEST CLINICAL INFORMATION: hypoxia,pulm edema improvement? COMPARISON: 10/29/2024, 10/28/2024. TECHNIQUE: Frontal view of the chest was obtained. FINDINGS: Right chest port in place in stable position in the distal SVC. Dependent pacer leads present in the right atrium and right ventricle. Cardiac monitoring device overlying the left heart shadow. There is mild cardiac enlargement. The mediastinal and hilar contours are unchanged. There is a large right upper lobe masslike opacity again demonstrated, without change. There is parenchymal opacity throughout the right base, and throughout the left lung, without significant change. There is no definite pneumothorax. No focal osseous or soft tissue abnormality. XR/XR chest 1V IMPRESSION: 1. Lines and tubes in stable position. 2. No significant interval change in the appearance of the thorax. Electronically signed by: Minor Sim MD 11/02/2024 11:00 AM EDT
--- NOTE | 2024-10-27 07:36 | ECG_ITS ---
Test Reason : SOB Blood Pressure : */* mmHG Vent. Rate : 135 BPM Atrial Rate : 182 BPM P-R Int : * ms QRS Dur : 72 ms QT Int : 314 ms P-R-T Axes : * 24 112 degrees QTcB Int : 471 ms Atrial fibrillation with PVCs Septal infarct , age undetermined Abnormal ECG When compared with ECG of 03-Sep-2024 09:40, Afib with RVR present Referred By: David Grier Electronically Signed By: Toribio Lau
[2024-10-27 07:48] LABS: ABG HCO3 12 mmol/L (22-26); ABG O2 % Saturation 84.0 %
--- NOTE | 2024-10-27 07:48 | ED.GENADULT ---
HPI - General Adult General Chief complaint: Dyspnea Stated complaint: Shaking Time Seen by Provider: 10/27/24 07:33 Source: patient and family Mode of arrival: wheelchair History of Present Illness HPI narrative: This is a 68 years old patient with stage IV breast cancer metastatic to the brain on chemoradiation therapy presented to the emergency department because shakiness, shortness of breath headache. She has been receiving radiation therapy to the brain. She has a history of paroxysmal atrial fibrillation, diabetes Onset (ago): hour(s) (3) Radiation: non-radiation Severity: moderate Pain Consistency: constant Relieving factors: none Exacerbating factors: none Associated symptoms: denies other symptoms Related Data Home Medications ?Medication ?Instructions ?Recorded ?Confirmed dexamethasone 2 mg tablet 2 mg PO BEDTIME 10/21/24 10/27/24 Magic Mouthwash 10 ml PO BID 10/27/24 10/27/24 Diphen/Nystat/Antacid 1:1:1 240 mL suspension acetaminophen 325 mg tablet 650 mg PO Q6H PRN Pain 10/27/24 10/27/24 oxycodone 5 mg tablet 5 mg PO BEDTIME 10/27/24 10/27/24 Previous Rx's ?Medication ?Instructions ?Recorded pravastatin 40 mg tablet 40 mg PO DAILY #90 tabs 03/16/24 metoprolol tartrate 50 mg tablet 50 mg PO BID #180 tabs 04/27/24 rivaroxaban 20 mg tablet (Xarelto) 20 mg PO DAILY #90 tabs 08/06/24 omeprazole 40 mg capsule,delayed 40 mg PO DAILY #90 caps 08/12/24 release blood sugar diagnostic (FreeStyle #100 ea 09/10/24 Lite Strips) blood-glucose meter (FreeStyle #1 ea 09/16/24 Lite Meter kit) lancets 28 gauge (FreeStyle #100 ea 09/16/24 Lancets) sodium chloride 1,000 mg soluble 1,000 mg PO BID #60 tabs 09/23/24 tablet lisinopril 10 mg tablet 10 mg PO DAILY #60 tabs 10/26/24 metformin 500 mg tablet 500 mg PO BID #60 tabs 10/27/24 ondansetron 8 mg disintegrating 8 mg PO Q8H PRN Nausea And 10/27/24 tablet Vomiting #60 tabs Allergies Allergy/AdvReac Type Severity Reaction Status Date / Time latex (LATEX) Allergy Intermediate RASH WITH Verified 10/27/24 07:24 CONTACT Review of Systems Constitutional: Constitutional: Reports as per HPI and Reports poor appetite Cardiovascular: Cardiovascular: Reports no additional cardiovascular complaints Musculoskeletal: Musculoskeletal: Reports no additional musculoskeletal complaints PMFSH Past Medical History Attestation statement: The following information was validated with the patient. Medical History Lymphadenopathy, mediastinal Lung mass Colon cancer screening Hyperglycemia Port-A-Cath in place On beta harley at home Abnormal ultrasound of breast Screening for breast cancer PUD (peptic ulcer disease) Essential hypertension PAF (paroxysmal atrial fibrillation) Vertigo Pacemaker (~2008) GERD (gastroesophageal reflux disease) Hypercholesteremia Surgical History History of lung biopsy Hx of colonoscopy History of left mastectomy (07/04/22) History of lumpectomy of left breast History of appendectomy History of permanent cardiac pacemaker placement History of cholecystectomy History of tubal ligation Family History Family History Mother No problems noted. Father No problems noted. Social History Social History Household Members: Spouse Housing: House Are you a primary transitions rn care coordinator to a significant other at home: No Do you presently have visiting nurse or other home services: Yes (dressing changes) Alcohol intake: never Patient Tobacco Use Status: Never used Tobacco Tobacco use type: Cigarette Smoked in Last 30 Days: No e-Cigarette/Vaping Use: Never Used Second Hand Smoke Exposure: No Use of substances other than those prescribed or required for medical reasons: No Advance Directives: Yes Advance Directives on File: Yes Advance Directives Date on File: 09/08/24 Do you have a plan to hurt others: No Plan Nutrition Risks: No Nutritional Risk service: No Current occupational status: retired 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 Cognitive needs: No Hearing needs: No Vision needs: Yes Physical Exam ED Exam Exam: mild distress Vital Signs: Vital Signs - 24 hr 10/27/24 07:20 10/27/24 07:28 10/27/24 07:48 Temperature 97.8 F 99.6 F Pulse Rate 139 H 138 H Respiratory Rate 22 H 22 H Blood Pressure 139/60 142/62 H Pulse Oximetry 77 L 86 L Oxygen Delivery Method Room Air Nasal Cannula Oxygen Flow Rate 2 10/27/24 08:00 10/27/24 08:00 Temperature Pulse Rate 138 H Respiratory Rate 26 H Blood Pressure Pulse Oximetry Oxygen Delivery Method Oxygen Flow Rate BMI result Body Mass Index 19.7 Const General: cooperative Orientation/consciousness: oriented to time HENMT Head: Yes normal to inspection General nose exam: Normal external nose present Face and sinus: Yes normal facial exam Mouth: Normal oral and palatal mucosa present Neck Neck: Yes normal visual inspection Chest Chest palpation & inspection: normal inspection of the chest Resp Other: Appear tachypneic the lungs are clear Auscultation: clear to auscultation bilaterally Cardio Other: Irregular irregular tachycardic GI Inspection: Yes normal to inspection Palpation (GI): Soft to palpation Skin General skin exam: no rashes or lesions noted Neuro General: oriented to time Course Reevaluation(s) Reevaluation #1: Under ultrasound inserted another IV in the right basilic vein 20 gauge long catheter Time: 08:33 Reevaluation #2: Spoke with the ICU attending Dr. Mckay Time: 08:34 Reevaluation #3: Sepsis Focus exam On re-examination the patient is doing much better lactic acid normalized good capillary refill heart rate down to 91 ,heart exam irr Irr but controlled rate , I discussed the case with the hospitalist accepted to [facility]. Time: 12:42 Additional Reevaluation(s): feeling much better waiting for admission Medications Administered Generic Name Dose Route Start Last Admin Trade Name Freq PRN Reason Stop Dose Admin Rivaroxaban 20 mg 10/27/24 14:25 10/27/24 15:41 Rivaroxaban 20 Mg Tablet PO 20 mg DAILY CAMELIA Administration Discontinued Medications Generic Name Dose Route Start Last Admin Trade Name Freq PRN Reason Stop Dose Admin Diltiazem HCl 15 mg 10/27/24 07:55 10/27/24 08:00 Diltiazem Hcl 50 Mg/10 Ml Vial IVPUSH 10/27/24 07:56 15 mg ONCE ONE Administration Hydrocortisone Sodium Succinate 100 mg 10/27/24 08:30 10/27/24 09:10 Hydrocortisone Sod Succ/Pf 100 Mg Vial IVPUSH 10/27/24 08:31 100 mg ONCE ONE Administration Sodium Chloride 1,515 mls @ 1,515 mls/hr 10/27/24 07:53 10/27/24 09:58 Ns 30 ml/kg infuse over 1 hr (1515 ml) 10/27/24 08:52 Infused IV Infusion .Q1H STA Cefepime HCl 2 gm in 50 mls @ 100 mls/hr 10/27/24 07:53 10/27/24 08:40 Maxipime IV 10/27/24 08:22 Infused ONCE ONE Infusion Vancomycin HCl 1,000 mg/ 270 mls @ 270 mls/hr 10/27/24 08:15 10/27/24 09:57 Sodium Chloride IV 10/27/24 09:14 Infused ONCE ONE Infusion Acetaminophen 1,000 mg in 100 mls @ 400 mls/hr 10/27/24 10:32 10/27/24 11:27 Ofirmev IV 10/27/24 10:46 Infused ONCE ONE Infusion Lactated Ringer's 1,000 mls @ 999 mls/hr 10/27/24 10:45 10/27/24 11:44 Lr IV 10/27/24 11:45 Infused .Q1H1M CAMELIA Infusion Iohexol 100 ml 10/27/24 14:58 10/27/24 14:59 Iohexol 350 Mg/Ml 100 Ml Infus..Btl IV 10/27/24 14:59 65 ml ONCE ONE Administration Procedures EJ/Peripheral Line Arm R: Time Out Performed: Yes Skin Cleansed in Sterile Fashion: Yes Size (gauge): 20 IV Secured and Dressing Applied: Yes Patient Tolerated Procedure: well Additional Comments: Under ultrasound-guided line a probe cannulated the right basilic vein with a 20 gauge long catheter introcan good flash good blood return line was secured tolerated the procedure well Medical Decision Making Medical Decision Making MDM Narrative: Patient is here with tremor shakiness found to be in rapid atrial fibrillation with work her up for pneumonia/possible sepsis she will need a rate control of the heart she is critically ill Differential Diagnosis Differential Diagnoses: The differential diagnosis associated with the presentation includes Pneumonia/sepsis/rapid atrial fibrillation Admission/Observation Consideration of admission/observation: Escalation of care including admission/observation considered Consult Healthcare Provider Management of the patient was discussed with: Hospitalist Lab Data MDM Lab Attestation statement: I reviewed the patient's lab results. 10/27/24 07:46 10/27/24 07:46 Labs: Lab Results 10/27/24 10/27/24 10/27/24 Range/Units 07:45 07:46 07:47 WBC 23.3 H (4.8-10.8) X10*3/uL RBC 3.23 L (4.20-5.50) X10*6/uL Hgb 10.0 L (12.0-16.0) g/dl Hct 28.9 L (37.0-47.0) % MCV 89.5 (80.0-98.0) fL MCH 31.0 (27.0-33.0) pg MCHC 34.6 (31.0-35.0) g/dl RDW 17.2 H (11.0-16.0) % Plt Count 245 D (160-400) X10*3/uL MPV 8.6 L (9.4-12.3) fL Immature Gran % (Auto) Cancelled Neut % (Auto) Cancelled Lymph % (Auto) Cancelled [place] % (Auto) Cancelled Eos % (Auto) Cancelled Baso % (Auto) Cancelled Lymph # (Auto) Cancelled [place] # (Auto) Cancelled Eos # (Auto) Cancelled Baso # (Auto) Cancelled Abs Immat Gran (auto) Cancelled Absolute Neuts (auto) Cancelled Absolute Nucleated RBC 0.070 H (0.0-0.012) X10*3/uL Nucleated RBC % (auto) 0.3 H (0.0-0.2) /100WBC Neutrophils % (Manual) 82 H (45-73) % Band Neutrophils % 5 (3-5) % Lymphocytes % (Manual) 5 L (20-40) % Atypical Lymphs % (Man) 1 (0-6) % Metamyelocytes % 6 % Myelocytes % 1 % Abs Neuts (Manual) 20.3 H (2.0-8.3) X10*3/uL Lymphocytes # (Manual) 1.2 (1.2-4.9) X10*3/uL Atyp Lymphs # (Manual) 0.2 x10*3/uL Metamyelocytes # 1.4 X10*3/uL Myelocytes # 0.2 X10*/uL Platelet Estimate NORMAL (NORMAL) Plt Morphology Comment NORMAL RBC Morphology NOTED Polychromasia 1+ (0-2) /OIF PT (10.9-12.4) SEC INR (0.9-1.1) O2 Saturation 84.0 % ABG pH at Pt Temp 7.38 (7.35-7.45) ABG pCO2 at Pt Temp 20 L* (32-45) mmHg ABG pO2 at Pt Temp 56 L (83-108) mmHg ABG HCO3 12 L (22-26) mmol/L ABG Base Excess (Actual) -10.3 mmol/L VBG pH (7.32-7.43) VBG pCO2 mmHg VBG pO2 mmHg VBG HCO3 (22-26) mmol/L VBG O2 Saturation % VBG Base Excess mmol/L Sodium 133 L (135-145) mmol/L Potassium 4.9 (3.3-5.1) mmol/L Chloride 100 (96-108) mmol/L Carbon Dioxide 16 L (22-29) mmol/L Anion Gap 22 H (12-20) BUN 19 H (9-16) mg/dL Creatinine 0.77 (0.5-1.4) mg/dL Estim Creat Clear Calc 54.9 Estimated GFR > 60 Random Glucose 208 H (60-115) mg/dL Lactic Acid 8.1 H* (0.5-2.0) mmol/L Calcium 9.1 (8.4-10.2) mg/dL Magnesium 1.7 (1.6-2.6) mg/dL Total Bilirubin 0.4 (0.0-1.0) mg/dL AST 41 H (5-31) U/L ALT 23 (0-31) U/L Alkaline Phosphatase 114 (39-117) U/L Troponin I High Sens 13.4 D (<3.5-17.0) ng/L Total Protein 6.2 L (6.5-8.0) g/dL Albumin 3.5 (3.5-5.0) g/dL Influenza Type A (PCR) NEGATIVE (Negative) Influenza Type B (PCR) NEGATIVE (Negative) RSV RNA Qual (PCR) NEGATIVE (Negative) SARS-CoV-2 RNA (RT-PCR) NEGATIVE (Negative) 10/27/24 10/27/24 Range/Units 07:53 08:01 WBC (4.8-10.8) X10*3/uL RBC (4.20-5.50) X10*6/uL Hgb (12.0-16.0) g/dl Hct (37.0-47.0) % MCV (80.0-98.0) fL MCH (27.0-33.0) pg MCHC (31.0-35.0) g/dl RDW (11.0-16.0) % Plt Count (160-400) X10*3/uL MPV (9.4-12.3) fL Immature Gran % (Auto) Neut % (Auto) Lymph % (Auto) [place] % (Auto) Eos % (Auto) Baso % (Auto) Lymph # (Auto) [place] # (Auto) Eos # (Auto) Baso # (Auto) Abs Immat Gran (auto) Absolute Neuts (auto) Absolute Nucleated RBC (0.0-0.012) X10*3/uL Nucleated RBC % (auto) (0.0-0.2) /100WBC Neutrophils % (Manual) (45-73) % Band Neutrophils % (3-5) % Lymphocytes % (Manual) (20-40) % Atypical Lymphs % (Man) (0-6) % Metamyelocytes % % Myelocytes % % Abs Neuts (Manual) (2.0-8.3) X10*3/uL Lymphocytes # (Manual) (1.2-4.9) X10*3/uL Atyp Lymphs # (Manual) x10*3/uL Metamyelocytes # X10*3/uL Myelocytes # X10*/uL Platelet Estimate (NORMAL) Plt Morphology Comment RBC Morphology Polychromasia /OIF PT 14.4 H D (10.9-12.4) SEC INR 1.3 H (0.9-1.1) O2 Saturation % ABG pH at Pt Temp (7.35-7.45) ABG pCO2 at Pt Temp (32-45) mmHg ABG pO2 at Pt Temp (83-108) mmHg ABG HCO3 (22-26) mmol/L ABG Base Excess (Actual) mmol/L VBG pH 7.35 (7.32-7.43) VBG pCO2 29 mmHg VBG pO2 42 mmHg VBG HCO3 16 L (22-26) mmol/L VBG O2 Saturation 63.0 % VBG Base Excess -7.7 mmol/L Sodium (135-145) mmol/L Potassium (3.3-5.1) mmol/L Chloride (96-108) mmol/L Carbon Dioxide (22-29) mmol/L Anion Gap (12-20) BUN (9-16) mg/dL Creatinine (0.5-1.4) mg/dL Estim Creat Clear Calc Estimated GFR Random Glucose (60-115) mg/dL Lactic Acid (0.5-2.0) mmol/L Calcium (8.4-10.2) mg/dL Magnesium (1.6-2.6) mg/dL Total Bilirubin (0.0-1.0) mg/dL AST (5-31) U/L ALT (0-31) U/L Alkaline Phosphatase (39-117) U/L Troponin I High Sens (<3.5-17.0) ng/L Total Protein (6.5-8.0) g/dL Albumin (3.5-5.0) g/dL Influenza Type A (PCR) (Negative) Influenza Type B (PCR) (Negative) RSV RNA Qual (PCR) (Negative) SARS-CoV-2 RNA (RT-PCR) (Negative) Independent Interpretation I performed an independent interpretation of an: EKG and Plain X-Ray (I personally reviewed interpreted the chest x-ray as right upper lobe pneumonia) Interpretation: Rapid AFib rate [address]-T changes Radiology Impression Discussion of test interpretation with radiology: I have reviewed the radiologist's reading. Radiologist Impression: COMPARISON: Comparison is made with the prior examination dated 09/03/2024. FINDINGS: A single AP portable view of the chest performed at 7:57 AM is submitted. A right-sided port is unchanged in position. An implantable loop recorder is again noted in the left anterior chest wall. Again seen is a right upper lobe mass. There is new airspace opacity in the right middle lobe, consistent with pneumonia. The left lung is clear. There is no pleural effusion, pneumothorax, or pulmonary vascular congestion. The heart is normal in size given technique. The bones are intact. XR/XR chest 1V IMPRESSION: 1. Known right upper lobe mass. 2. Airspace opacity in the right middle lobe, consistent with pneumonia. Electronically signed by: Nahum Solano MD 10/27/2024 08:11 AM EDT Dictated By: Nahum Solano MD Signed By: <Electronically s Independent Historian daughter External Record Review External record reviewed: Inpatient record Tests considered The following testing was considered but not selected: I consider a CT chest however the patient is already anticoagulated with Xarelto unlikely pulmonary emboli Prescription Management I considered prescription management with: Antibiotic Chronic Conditions Patient?s care impacted by: Cancer Metastatic breast cancer to brain Critical Care Time Critical Care Time Critical Care Time: Yes Total Critical Care Time: 90 Attestation: Pneumonia with hypoxia rapid AFib lactic acidosis Discharge Plan Discharge Clinical Impression: Acidosis, lactic, Atrial fibrillation with rapid ventricular response, Metabolic acidosis Sepsis Qualifiers: Sepsis type: sepsis due to unspecified organism Sepsis acute organ dysfunction status: with acute organ dysfunction Severe sepsis acute organ dysfunction type: acute respiratory failure Acute respiratory failure type: with hypoxia Severe sepsis shock status: without septic shock Qualified Code(s): A41.9 - Sepsis, unspecified organism Pneumonia Qualifiers: Pneumonia type: due to unspecified organism Laterality: right Lung location: middle lobe of lung Qualified Code(s): J18.9 - Pneumonia, unspecified organism Patient Disposition: Admitted As Inpatient Interventions: Admission Worksheet (ED) Last Done: 10/27/24 11:45
--- NOTE | 2024-10-27 07:50 | PC.NURSE ---
not able to get oxygen sat with forehead finger and ear lobe. respiratory getting nasal probe
[2024-10-27 07:53] LABS: Hematocrit 28.9 % (37.0-47.0); Hemoglobin 10.0 g/dl (12.0-16.0); Mean Corpuscular HGB Conc 34.6 g/dl (31.0-35.0); Mean Corpuscular Hemoglobin 31.0 pg (27.0-33.0); Mean Corpuscular Volume 89.5 fL (80.0-98.0); NRBC Abs Auto 0.070 X10*3/uL (0.0-0.012); NRBC Pct Auto 0.3 /100WBC (0.0-0.2); Platelet Count 245 X10*3/uL (160-400); Red Blood Count 3.23 X10*6/uL (4.20-5.50); White Blood Count 23.3 X10*3/uL (4.8-10.8)
[2024-10-27 07:56] LABS: Venous Blood Gas Refer to POC result
[2024-10-27 07:58] LABS: VBG HCO3 16 mmol/L (22-26); VBG O2 % Saturation 63.0 %
[2024-10-27] MEDS: SODIUM CHLORIDE 1515 ML IV (08:00)
[2024-10-27] MEDS: cefEPime HCl/D5W 2 GM/50 ML PIGGYBACK IV ×2 (08:07→20:13)
[2024-10-27 08:12] LABS: Atypical Lymph Absolute Manual 0.2 x10*3/uL; Atypical Lymphs Percent Manual 1 % (0-6); Band Neutrophils Percent 5 % (3-5); Lymphocytes Absolute Manual 1.2 X10*3/uL (1.2-4.9); Lymphocytes Percent Manual 5 % (20-40); Metamyelocytes Absolute 1.4 X10*3/uL; Metamyelocytes Percent 6 %; Myelocytes Absolute 0.2 X10*/uL; Myelocytes Percent 1 %; Neutrophils Absolute Manual 20.3 X10*3/uL (2.0-8.3); Neutrophils Percent Manual 82 % (45-73)
[2024-10-27 08:14] LABS: Alanine Aminotransferase 23 U/L (0-31); Albumin Level 3.5 g/dL (3.5-5.0); Alkaline Phosphatase 114 U/L (39-117); Anion Gap 22 (12-20); Aspartate Amino Transferase 41 U/L (5-31); Blood Urea Nitrogen 19 mg/dL (9-16); Calcium 9.1 mg/dL (8.4-10.2); Carbon Dioxide 16 mmol/L (22-29); Chloride 100 mmol/L (96-108); Creatinine Clr Calc Pharmacy 54.9; Estimated Glomerular Filt Rate > 60; Magnesium 1.7 mg/dL (1.6-2.6); Polychromasia 1+ (0-2) /OIF; Potassium 4.9 mmol/L (3.3-5.1); RBC Morphology NOTED; Sodium 133 mmol/L (135-145); Total Protein 6.2 g/dL (6.5-8.0); Troponin-I High Sensitivity 13.4 ng/L (<3.5-17.0)
[2024-10-27 08:18] LABS: INTERNATIONAL NORM RATIO 1.3 (0.9-1.1); Prothrombin Time 14.4 SEC (10.9-12.4)
--- NOTE | 2024-10-27 08:59 | P.CONCA_ITS ---
History of Present Illness History of Present Illness Date of Service: 10/27/24 Requesting physician: David Grier Chief complaint: Hypoxia, Afib Narrative: [age] year female who we have been asked to see for atrial fibrillation. She has persistent atrial fibrillation and was rate controlled previously with diltiazem and metoprolol and has been on rivaroxaban for anticoagulation. She has metastatic breast cancer and is currently on chemotherapy. She came in for episode of shaking and was noticed to be septic with lactate of 8 a chest x- ray showing right-sided pneumonia. She is on antibiotics. She was noticed to be in AFib with RVR. The ER has given her diltiazem IV which has slowed the heart rate already. She previously had a left chest wall permanent pacemaker which was removed because it was in the way when radiation was being performed. She has a leadless pacemaker placed and left chest wall permanent pacemaker was explanted. She has not been eating due to mucositis due to chemotherapy. FORMERLY [facility] Past Medical History Medical History Lymphadenopathy, mediastinal Lung mass Colon cancer screening Hyperglycemia Port-A-Cath in place On beta harley at home Abnormal ultrasound of breast Screening for breast cancer PUD (peptic ulcer disease) Essential hypertension PAF (paroxysmal atrial fibrillation) Vertigo Pacemaker (~2008) GERD (gastroesophageal reflux disease) Hypercholesteremia Family History Family History Mother No problems noted. Father No problems noted. Surgical History Surgical History History of lung biopsy Hx of colonoscopy History of left mastectomy (07/04/22) History of lumpectomy of left breast History of appendectomy History of permanent cardiac pacemaker placement History of cholecystectomy History of tubal ligation Social History Social History Household Members: Spouse Housing: House Are you a primary vehicle care specialist to a significant other at home: No Do you presently have visiting nurse or other home services: Yes (dressing changes) Alcohol intake: never Patient Tobacco Use Status: Never used Tobacco Tobacco use type: Cigarette e-Cigarette/Vaping Use: Never Used Second Hand Smoke Exposure: No Advance Directives: Yes Advance Directives on File: Yes Advance Directives Date on File: 09/08/24 Do you have a plan to hurt others: No Plan service: No Current occupational status: retired 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 Cognitive needs: No Hearing needs: No Vision needs: Yes Meds Allergies Allergy/AdvReac Type Severity Reaction Status Date / Time latex (LATEX) Allergy Intermediate RASH WITH Verified 10/27/24 07:24 CONTACT Active Medications: Current Medications Diltiazem HCl 125 mg/ Sodium (Chloride) 125 mls @ 0 mls/hr IVCONT .Q0M CAMELIA; Protocol Vancomycin HCl 1,000 mg/ (Sodium Chloride) 270 mls @ 270 mls/hr IV ONCE ONE Stop: 10/27/24 09:14 Last Admin: 10/27/24 08:23 Dose: 270 mls/hr Home Medications ?Medication ?Instructions ?Recorded ?Confirmed ?Last Taken ?Type dexamethasone 2 mg tablet 1 mg PO TID 10/21/24 5 Unknown History Physical Exam 2 Vital Signs: Vital Signs: Last Vital Signs Temp 99.6 F 10/27/24 07:48 Pulse 138 H 10/27/24 08:00 Resp 26 H 10/27/24 08:00 BP 142/62 H 10/27/24 07:48 Pulse Ox 86 L 10/27/24 07:28 O2 Del Method Nasal Cannula 10/27/24 07:28 O2 Flow Rate 2 10/27/24 07:28 BMI result Body Mass Index 19.7 GENERAL APPEARANCE: Ill-appearing, short of breath on high-flow nasal cannula. NECK: no carotid bruit, no jugular venous distention. SKIN: no suspicious lesions, warm and dry. Right chest wall port. HEART: no murmurs, irregular rate and rhythm. LUNGS: clear to auscultation anteriorly. ABDOMEN: soft, nontender. EXTREMITIES: no edema. PERIPHERAL PULSES: equal. Objective Labs and Meds 10/27/24 07:46 10/27/24 07:46 Lab results: Laboratory Results - last 24 hr 10/27/24 10/27/24 10/27/24 07:45 07:46 07:47 WBC 23.3 H RBC 3.23 L Hgb 10.0 L Hct 28.9 L MCV 89.5 MCH 31.0 MCHC 34.6 RDW 17.2 H Plt Count 245 D MPV 8.6 L Immature Gran % (Auto) Cancelled Neut % (Auto) Cancelled Lymph % (Auto) Cancelled [place] % (Auto) Cancelled Eos % (Auto) Cancelled Baso % (Auto) Cancelled Lymph # (Auto) Cancelled [place] # (Auto) Cancelled Eos # (Auto) Cancelled Baso # (Auto) Cancelled Abs Immat Gran (auto) Cancelled Absolute Neuts (auto) Cancelled Absolute Nucleated RBC 0.070 H Nucleated RBC % (auto) 0.3 H Neutrophils % (Manual) 82 H Band Neutrophils % 5 Lymphocytes % (Manual) 5 L Atypical Lymphs % (Man) 1 Metamyelocytes % 6 Myelocytes % 1 Abs Neuts (Manual) 20.3 H Lymphocytes # (Manual) 1.2 Atyp Lymphs # (Manual) 0.2 Metamyelocytes # 1.4 Myelocytes # 0.2 Platelet Estimate NORMAL Plt Morphology Comment NORMAL RBC Morphology NOTED Polychromasia 1+ (0-2) PT INR O2 Saturation 84.0 ABG pH at Pt Temp 7.38 ABG pCO2 at Pt Temp 20 L* ABG pO2 at Pt Temp 56 L ABG HCO3 12 L ABG Base Excess (Actual) -10.3 VBG pH VBG pCO2 VBG pO2 VBG HCO3 VBG O2 Saturation VBG Base Excess Sodium 133 L Potassium 4.9 Chloride 100 Carbon Dioxide 16 L Anion Gap 22 H BUN 19 H Creatinine 0.77 Estim Creat Clear Calc 54.9 Estimated GFR > 60 Random Glucose 208 H Lactic Acid 8.1 H* Calcium 9.1 Magnesium 1.7 Total Bilirubin 0.4 AST 41 H ALT 23 Alkaline Phosphatase 114 Troponin I High Sens 13.4 D Total Protein 6.2 L Albumin 3.5 10/27/24 10/27/24 07:53 08:01 WBC RBC Hgb Hct MCV MCH MCHC RDW Plt Count MPV Immature Gran % (Auto) Neut % (Auto) Lymph % (Auto) [place] % (Auto) Eos % (Auto) Baso % (Auto) Lymph # (Auto) [place] # (Auto) Eos # (Auto) Baso # (Auto) Abs Immat Gran (auto) Absolute Neuts (auto) Absolute Nucleated RBC Nucleated RBC % (auto) Neutrophils % (Manual) Band Neutrophils % Lymphocytes % (Manual) Atypical Lymphs % (Man) Metamyelocytes % Myelocytes % Abs Neuts (Manual) Lymphocytes # (Manual) Atyp Lymphs # (Manual) Metamyelocytes # Myelocytes # Platelet Estimate Plt Morphology Comment RBC Morphology Polychromasia PT 14.4 H D INR 1.3 H O2 Saturation ABG pH at Pt Temp ABG pCO2 at Pt Temp ABG pO2 at Pt Temp ABG HCO3 ABG Base Excess (Actual) VBG pH 7.35 VBG pCO2 29 VBG pO2 42 VBG HCO3 16 L VBG O2 Saturation 63.0 VBG Base Excess -7.7 Sodium Potassium Chloride Carbon Dioxide Anion Gap BUN Creatinine Estim Creat Clear Calc Estimated GFR Random Glucose Lactic Acid Calcium Magnesium Total Bilirubin AST ALT Alkaline Phosphatase Troponin I High Sens Total Protein Albumin Imaging Radiologist's impression: Impressions Chest X-Ray 10/27/24 06:57 IMPRESSION: 1. Known right upper lobe mass. 2. Airspace opacity in the right middle lobe, consistent with pneumonia. Electronically signed by: Nahum Solano MD 10/27/2024 08:11 AM EDT RP Assessment and Plan (1) Persistent atrial fibrillation: Status: Acute Plan 68-year-old lady with persistent Afib and metastatic breast Ca presenting with sepsis due to pneumonia right lung. She has AFib with RVR. As mentioned she has persistent atrial fibrillation and is in AFib all the time. Supportive treatment with antibiotics and IV fluid resuscitation. Recent echocardiography has shown normal LV function. If blood pressure stable then diltiazem can be continued. We will follow along with you. Procedures Date of Service Date of Service: 10/27/24
[2024-10-27 09:01] LABS: Resp Syncy Virus RNA Qual PCR NEGATIVE (Negative); SARS COV2 PCR INHOUSE NEGATIVE (Negative)
[2024-10-27] MEDS: Hydrocortisone Sod Succ/PF 100 MG VIAL IVPUSH (09:10)
--- NOTE | 2024-10-27 09:20 | PC.NURSE ---
Patient alert and oriented x 3. Patient came from home with daughter with increased sob. tele: afib 60-150's Patient was in 70'S. Patient right chest wali cath accessed with power port. Also has a right AC 20g ultrasound guided IV. Patient went in to rapid afib given cardizem 15mg iv push heart rate started at 150's went down to 90's. Patient on hi flow applied by respiratory. Patient denies any pain. tele: is now afib 60-70's IV vancomycin and ceftriaoxne given. iv fluids are almost done. Daughter at bedside. Patietnt has a hx of breast CA that has now metastasized. WBC-23.3 Lactic -8.1
[2024-10-27 09:50] LABS: Reflex Lactate? Lactic Acid Added
--- NOTE | 2024-10-27 09:58 | PHA.MEDREC ---
Pharmacy Consult ? Medication Reconciliation Pharmacy has completed the medication reconciliation. Patients's daughter confirmed all medications. Reports Dexamethasone was recently changed to 2 mg once a day. Reports patient only use oxycodone at bedtime, and has not morphine. She trys to manage pain with Tylenol. Rena Guerrero, PharmD
[2024-10-27 10:17] LABS: ABG HCO3 17 mmol/L (22-26); ABG O2 % Saturation 90.0 %
[2024-10-27] MEDS: Lactated Ringers 1,000 ML 999 ML IV (10:38)
[2024-10-27 10:51] LABS: Appearance Urine Clear; Glucose Urine UA Negative (Negative); PH 7.5 (5.0-9.0); Specific Gravity - Urine 1.015 (1.005-1.025)
[2024-10-27 11:13] LABS: ABG Refer to POC result
[2024-10-27 11:13] LABS: ABG Refer to POC result
--- NOTE | 2024-10-27 14:18 | PHA.PROG ---
Admission Date/Time: October 27, 2024 08:49 Indication: Respiratory Weight in k.5 kg Serum Creatinine - Last 168 Hours 10/27/24 07:46 Creatinine 0.77 Estimated CrCl and GFR - Last 168 Hours 10/27/24 07:46 Estim Creat Clear Calc 54.9 Estimated GFR > 60 Vancomycin Loading Dose: 1,000 mg Current Vancomycin Dosing Regimen: 750 MG Q 12H Vancomycin Monitoring using AUC goal of 400 - 600 range with trough as surrogate marker: 621, 20.4 Date and Time for next Vancomycin Level to be drawn: 10/28 @ 0600 Pharmacist Comments on Vancomycin Plan: Very small pt, treating aggressively with a trough before 3rd dose, to dose reduce if needed. Vancomycin dosing will take advantage of [employer] as a clinical decision support tool that uses Bayesian modeling to calculate individual patient's pharmacokinetic parameters and forecast the patient's drug concentration time course with the target goal AUC 24 range of 400 - 600 mg/L/hr.
--- NOTE | 2024-10-27 14:39 | PM.IMHP ---
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 Mcgill, persistent AFib on Xarelto, [id number] type 2 diabetes,?HTN, HLD, and GERD who presents to the ED with?shaking chills, headache, cough, and SOB upon awakening from sleep at 04:00 this morning. Pt also experiencing headache and palpitations. Says the SOB ?comes and goes, comes and goes . pt reports was in her normal state of health last night. Denies chest pain or pressure. No nausea, vomiting, diarrhea, abdominal pain. In the ED pt was febrile up to 102, tachycardic up to 139, and tachypneic up to 26, with variable BP as low as 89/40. Was also noted to be hypoxic as low as 77% on RA, improved with NC to 86% and eventually transitioned to high-flow oxygen in the ED. Labs were significant for leukocytosis 23.3, stable normocytic anemia of 10.0/28.9, sodium 133, anion gap 22, bicarb 16, lactic acid 8.1 with repeat 1.7. Troponin WNL at 13.4. UA negative for UTI. Tested negative for COVID, flu, RSV. CXR showed known right upper lobe mass with airspace opacity in the right middle lobe consistent with pneumonia. EKG demonstrated AFib with RVR of 135. Pt was treated in the ED with sepsis bolus IVF, diltiazem 15 mg IV, hydrocortisone 100 mg IV, cefepime, and vancomycin. Pt was initially evaluated by ICU who felt pt was stable enough for the regular hospital floor. Pt is admitted to the hospital for treatment and further evaluation of acute hypoxic respiratory failure in the setting of pneumonia with sepsis in an immunocompromised pt. Review of Systems Review of Systems: Negative except for that which is stated in the HPI. [facility] Medical History Lymphadenopathy, mediastinal Lung mass Colon cancer screening Hyperglycemia Port-A-Cath in place On beta harley at home Abnormal ultrasound of breast Screening for breast cancer PUD (peptic ulcer disease) Essential hypertension PAF (paroxysmal atrial fibrillation) Vertigo Pacemaker (~2008) GERD (gastroesophageal reflux disease) Hypercholesteremia Family History Mother No problems noted. Father No problems noted. Surgical History History of lung biopsy Hx of colonoscopy History of left mastectomy (07/04/22) History of lumpectomy of left breast History of appendectomy History of permanent cardiac pacemaker placement History of cholecystectomy History of tubal ligation Social History Household Members: Spouse Housing: House Are you a primary customer care consultant to a significant other at home: No Do you presently have visiting nurse or other home services: Yes (dressing changes) Alcohol intake: never Patient Tobacco Use Status: Never used Tobacco Tobacco use type: Cigarette Smoked in Last 30 Days: No e-Cigarette/Vaping Use: Never Used Second Hand Smoke Exposure: No Use of substances other than those prescribed or required for medical reasons: No Advance Directives: Yes Advance Directives on File: Yes Advance Directives Date on File: 09/08/24 Do you have a plan to hurt others: No Plan Nutrition Risks: No Nutritional Risk service: No Current occupational status: retired 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 Cognitive needs: No Hearing needs: No Vision needs: Yes Meds Allergies Allergy/AdvReac Type Severity Reaction Status Date / Time latex (LATEX) Allergy Intermediate RASH WITH Verified 10/27/24 07:24 CONTACT Active Medications: Current Medications Acetaminophen (Acetaminophen 325 Mg Tablet) 650 mg PO Q6H PRN PRN Reason: Pain, Mild 1-3,fever,headache Calcium Carbonate (Calcium Carbonate 750 Mg Tab.Chew) 750 mg PO Q4H PRN PRN Reason: Heartburn Dexamethasone (Dexamethasone 2 Mg Tablet) 2 mg PO BEDTIME [facility] Fluconazole (Fluconazole 50 Mg Tablet) 50 mg PO DAILY [facility] Stop: 10/29/24 09:01 Cefepime HCl (Maxipime) 2 gm in 50 mls @ 100 mls/hr IV Q12H [facility] Vancomycin HCl 750 mg/ Sodium (Chloride) 265 mls @ 265 mls/hr IV Q12H [facility] Lidocaine/Diphenhydr/Alum/Mg/Simeth (Mag&Al/Sim/Diphenhyd/Lidocaine 10 Ml Oral.Susp) 10 ml PO BID [facility] Magnesium Hydroxide (Milk Of Magnesia 30 Ml Oral.Susp) 30 ml PO DAILY PRN PRN Reason: Constipation Melatonin (Melatonin 3 Mg Tablet) 6 mg PO BEDTIME PRN PRN Reason: Insomnia Metoprolol Tartrate (Metoprolol Tartrate 50 Mg Tablet) 50 mg PO BID [facility]; Protocol Omeprazole (Omeprazole 40 Mg Capsule.Dr) 40 mg PO DAILY@0630 [facility] Oxycodone HCl (Oxycodone Hcl Immed Release 5 Mg Tablet) 5 mg PO BEDTIME [facility] Pharmacy Consult (Consult Rx Vancomycin Dosing) 1 each MISCELLANE DAILY PRN PRN Reason: Consult order Pravastatin Sodium (Pravastatin Sodium 40 Mg Tablet) 40 mg PO DAILY [facility] Rivaroxaban (Rivaroxaban 20 Mg Tablet) 20 mg PO DAILY [facility] Sodium Chloride (0.9 % Sodium Chloride Flush 3 Ml Syringe) 3 ml IVFLUSH QSHIFT [facility] Sodium Chloride (Sodium Chloride Tab 1 Gm Tablet) 1 gm PO BID [facility] Home Medications ?Medication ?Instructions ?Recorded ?Confirmed ?Last Taken ?Type dexamethasone 2 mg tablet 2 mg PO BEDTIME 10/21/24 10/27/24 10/26/24 History Magic Mouthwash 10 ml PO BID 10/27/24 10/27/24 10/26/24 History Diphen/Nystat/Antacid 1:1:1 240 mL suspension acetaminophen 325 mg tablet 650 mg PO Q6H PRN Pain 10/27/24 10/27/24 Unknown History oxycodone 5 mg tablet 5 mg PO BEDTIME 10/27/24 10/27/24 10/26/24 History Physical Exam Vital Signs and Narrative: Vital Signs: Last Vital Signs Temp 99.7 F 10/27/24 14:00 Pulse 91 10/27/24 14:00 Resp 28 H 10/27/24 14:00 BP 115/66 10/27/24 14:00 Pulse Ox 95 10/27/24 14:00 O2 Del Method Nasal Cannula 10/27/24 14:00 O2 Flow Rate 50 10/27/24 12:23 FiO2 66 10/27/24 12:23 BMI result Body Mass Index 19.7 General: AOx3. Uncomfortable. High-flow on. Speaking in 1-2 word sentences Resp: CTA bilaterally. Increased work of breathing. CVS: Irregularly irregular rhythm, tachycardic. GI: +BS, NT, no distention. Skin: Warm, dry Neuro: Cranial nerves II-XII grossly intact bilaterally. Motor grossly intact bilaterally Extremities: No edema Psych: Appropriate affect Results Labs 10/27/24 07:46 10/27/24 07:46 Labs: Laboratory Results - last 24 hr 10/27/24 10/27/24 10/27/24 07:45 07:46 07:47 MCV 89.5 MCH 31.0 MCHC 34.6 RDW 17.2 H Plt Count 245 D MPV 8.6 L Immature Gran % (Auto) Cancelled Neut % (Auto) Cancelled Lymph % (Auto) Cancelled Hickman % (Auto) Cancelled Eos % (Auto) Cancelled Baso % (Auto) Cancelled Lymph # (Auto) Cancelled Hickman # (Auto) Cancelled Eos # (Auto) Cancelled Baso # (Auto) Cancelled Abs Immat Gran (auto) Cancelled Absolute Neuts (auto) Cancelled Absolute Nucleated RBC 0.070 H Nucleated RBC % (auto) 0.3 H Neutrophils % (Manual) 82 H Band Neutrophils % 5 Lymphocytes % (Manual) 5 L Atypical Lymphs % (Man) 1 Metamyelocytes % 6 Myelocytes % 1 Abs Neuts (Manual) 20.3 H Lymphocytes # (Manual) 1.2 Atyp Lymphs # (Manual) 0.2 Metamyelocytes # 1.4 Myelocytes # 0.2 Platelet Estimate NORMAL Plt Morphology Comment NORMAL RBC Morphology NOTED Polychromasia 1+ (0-2) PT INR O2 Saturation 84.0 ABG pH at Pt Temp 7.38 ABG pCO2 at Pt Temp 20 L* ABG pO2 at Pt Temp 56 L ABG HCO3 12 L ABG Base Excess (Actual) -10.3 VBG pH VBG pCO2 VBG pO2 VBG HCO3 VBG O2 Saturation VBG Base Excess Anion Gap 22 H Estim Creat Clear Calc 54.9 Estimated GFR > 60 Random Glucose 208 H Lactic Acid 8.1 H* Calcium 9.1 Magnesium 1.7 Total Bilirubin 0.4 AST 41 H ALT 23 Alkaline Phosphatase 114 Total Protein 6.2 L Albumin 3.5 Urine Color Urine Appearance Urine pH Ur Specific [place] Urine Protein Urine Glucose (UA) Urine Ketones Urine Blood Urine Nitrite Ur Leukocyte Esterase Influenza Type A (PCR) NEGATIVE Influenza Type B (PCR) NEGATIVE RSV RNA Qual (PCR) NEGATIVE SARS-CoV-2 RNA (RT-PCR) NEGATIVE 10/27/24 10/27/24 10/27/24 07:53 08:01 09:49 MCV MCH MCHC RDW Plt Count MPV Immature Gran % (Auto) Neut % (Auto) Lymph % (Auto) Hickman % (Auto) Eos % (Auto) Baso % (Auto) Lymph # (Auto) Hickman # (Auto) Eos # (Auto) Baso # (Auto) Abs Immat Gran (auto) Absolute Neuts (auto) Absolute Nucleated RBC Nucleated RBC % (auto) Neutrophils % (Manual) Band Neutrophils % Lymphocytes % (Manual) Atypical Lymphs % (Man) Metamyelocytes % Myelocytes % Abs Neuts (Manual) Lymphocytes # (Manual) Atyp Lymphs # (Manual) Metamyelocytes # Myelocytes # Platelet Estimate Plt Morphology Comment RBC Morphology Polychromasia PT 14.4 H D INR 1.3 H O2 Saturation ABG pH at Pt Temp ABG pCO2 at Pt Temp ABG pO2 at Pt Temp ABG HCO3 ABG Base Excess (Actual) VBG pH 7.35 VBG pCO2 29 VBG pO2 42 VBG HCO3 16 L VBG O2 Saturation 63.0 VBG Base Excess -7.7 Anion Gap Estim Creat Clear Calc Estimated GFR Random Glucose Lactic Acid 1.7 Calcium Magnesium Total Bilirubin AST ALT Alkaline Phosphatase Total Protein Albumin Urine Color Urine Appearance Urine pH Ur Specific [place] Urine Protein Urine Glucose (UA) Urine Ketones Urine Blood Urine Nitrite Ur Leukocyte Esterase Influenza Type A (PCR) Influenza Type B (PCR) RSV RNA Qual (PCR) SARS-CoV-2 RNA (RT-PCR) 10/27/24 10/27/24 10:14 10:30 MCV MCH MCHC RDW Plt Count MPV Immature Gran % (Auto) Neut % (Auto) Lymph % (Auto) Hickman % (Auto) Eos % (Auto) Baso % (Auto) Lymph # (Auto) Hickman # (Auto) Eos # (Auto) Baso # (Auto) Abs Immat Gran (auto) Absolute Neuts (auto) Absolute Nucleated RBC Nucleated RBC % (auto) Neutrophils % (Manual) Band Neutrophils % Lymphocytes % (Manual) Atypical Lymphs % (Man) Metamyelocytes % Myelocytes % Abs Neuts (Manual) Lymphocytes # (Manual) Atyp Lymphs # (Manual) Metamyelocytes # Myelocytes # Platelet Estimate Plt Morphology Comment RBC Morphology Polychromasia PT INR O2 Saturation 90.0 ABG pH at Pt Temp 7.43 ABG pCO2 at Pt Temp 25 L ABG pO2 at Pt Temp 64 L ABG HCO3 17 L ABG Base Excess (Actual) -5.3 VBG pH VBG pCO2 VBG pO2 VBG HCO3 VBG O2 Saturation VBG Base Excess Anion Gap Estim Creat Clear Calc Estimated GFR Random Glucose Lactic Acid Calcium Magnesium Total Bilirubin AST ALT Alkaline Phosphatase Total Protein Albumin Urine Color Yellow Urine Appearance Clear Urine pH 7.5 Ur Specific [place] 1.015 Urine Protein Trace Urine Glucose (UA) Negative Urine Ketones Negative Urine Blood Negative Urine Nitrite Negative Ur Leukocyte Esterase Negative Influenza Type A (PCR) Influenza Type B (PCR) RSV RNA Qual (PCR) SARS-CoV-2 RNA (RT-PCR) Imaging Radiologist's Impressions: Impressions Chest X-Ray 10/27/24 06:57 IMPRESSION: 1. Known right upper lobe mass. 2. Airspace opacity in the right middle lobe, consistent with pneumonia. Electronically signed by: Nahum Solano MD 10/27/2024 08:11 AM EDT RP Assessment and Plan (1) Acute hypoxic respiratory failure: Status: Acute (2) Pneumonia: Qualifiers: Laterality: right Lung location: middle lobe of lung Pneumonia type: due to unspecified organism Qualified Code(s): J18.9 - Pneumonia, unspecified organism Status: Acute Plan Pt is a 68-year-old female with a PMH significant for stage IV breast cancer with mets to the brain on chemoradiation therapy follows with Dr. Mcgill, persistent AFib on Xarelto, [id number] type 2 diabetes,?HTN, HLD, and GERD who presents to the ED with?shaking chills, headache, cough, and SOB upon awakening from sleep at 04:00 this morning. Pt is admitted to the hospital for treatment and further evaluation of acute hypoxic respiratory failure in the setting of pneumonia with sepsis in an immunocompromised pt. Acute hypoxic respiratory failure in the setting of pneumonia with sepsis in an immunocompromised pt Pt with rigors, SOB, cough, CXR showing right middle lobe opacity consistent with pneumonia Meets sepsis criteria with fever, tachycardia, tachypnea, leukocytosis; lactic acid likely falsely elevated due to rigors Pt given sepsis bolus fluids and started on broad-spectrum antibiotics in the ED Will treat with vancomycin and cefepime, started 10/27/2024 Pt currently on high-flow, wean as tolerated Will check CTA of chest to rule out PE Monitor respiratory status Acute lactic acidosis, resolved Initial lactic acid 8.1 with repeat normalized At 1.7 secondary to rigors, not severe sepsis Candidiasis Continue Magic Mouthwash Fluconazole 50 mg daily x3 days Hx of breast cancer with metastasis to brain Pt given stress dose of hydrocortisone in the ED Continue home dexamethasone Oncology consult HTN BP has been soft, hold lisinopril Persistent AFib Continue Xarelto, metoprolol Odr-fsmemls-phjebrfbk type [address] on sliding scale insulin, diabetic diet HLD Continue statin GERD Continue PPI Full Code Attending:?Dr. Cordon DVT Prophylaxis: On Xarelto Pt will require a hospitalization of at least two nights for treatment of?acute hypoxic respiratory failure in the setting of pneumonia with sepsis in an immunocompromised pt. pt will require hospital level care for administration of high-flow supplemental oxygen, IV antibiotics, close monitoring of labs and respiratory status. Quality Stroke Does the patient have a stroke diagnosis?: No VTE Prior VTE?: No VTE Risk Level:: Medical - moderate - high VTE Device Contraindication: Treatment Not Indicated VTE Drug Contraindication: N/A - Med Ordered
[2024-10-27] MEDS: iohexoL 350 MG/ML 100 ML INFUS..BTL IV (14:59)
--- NOTE | 2024-10-27 16:04 | PC.NURSE ---
ASSUMED CARE OF PATIENT AT 1500, PATIENT IS ASLEEP BUT EASILY AROUSABLE T VERBAL STIMULI, PATIENT MEDICATED PER MAY, TAKES MEDS WHOLE WITH WATER. PATIENT VSS, CURRENTLY ON HIGH FLOW NASAL CANNULA 44% AT 50L. PATIENT HADDAD EMPTIED OF 1300CC YELLOW URINE, NO CLOTS OR SEDIMENT NOTED. PATIENT FAMILY AT BEDSIDE
[2024-10-27 19:32] LABS: Hematocrit 22.6 % (37.0-47.0); Hemoglobin 8.0 g/dl (12.0-16.0); Mean Corpuscular HGB Conc 35.4 g/dl (31.0-35.0); Mean Corpuscular Hemoglobin 31.0 pg (27.0-33.0); Mean Corpuscular Volume 87.6 fL (80.0-98.0); NRBC Abs Auto 0.020 X10*3/uL (0.0-0.012); NRBC Pct Auto 0.1 /100WBC (0.0-0.2); Platelet Count 170 X10*3/uL (160-400); Red Blood Count 2.58 X10*6/uL (4.20-5.50); White Blood Count 16.2 X10*3/uL (4.8-10.8)
[2024-10-27] MEDS: oxyCODONE HCl Immed Release 5 MG TABLET PO (20:44)
[2024-10-27] MEDS: Mag&Al/Sim/Diphenhyd/Lidocaine 10 ML ORAL.SUSP PO (20:45)
[2024-10-27 21:37] LABS: Glucose, Whole Blood 130 mg/dL (60-115)
[2024-10-27] MEDS: 0.9 % Sodium Chloride Flush 3 ML SYRINGE IVFLUSH (23:26)
[2024-10-28] VITALS (20 sets, daily range): BP systolic 101–163; BP diastolic 60–86; PULSE 82–110; RESP 16–34; TEMP 36.2–38.9; O2SAT 81–100; BMI 19.7
--- NOTE | 2024-10-28 | ECG_ITS ---
Test Reason : sob, increase hr Blood Pressure : */* mmHG Vent. Rate : 81 BPM Atrial Rate : * BPM P-R Int : * ms QRS Dur : 80 ms QT Int : 342 ms P-R-T Axes : * 15 43 degrees QTcB Int : 397 ms Atrial fibrillation with occasional ventricular-paced complexes and with premature ventricular or aberrantly conducted complexes Abnormal ECG When compared with ECG of 27-Oct-2024 07:49, Previous ECG has undetermined rhythm, needs review Referred By: London Godoy Electronically Signed By: Toribio Lau
[2024-10-28 06:21] LABS: Hematocrit 25.6 % (37.0-47.0); Hemoglobin 8.7 g/dl (12.0-16.0); Mean Corpuscular HGB Conc 34.0 g/dl (31.0-35.0); Mean Corpuscular Hemoglobin 30.5 pg (27.0-33.0); Mean Corpuscular Volume 89.8 fL (80.0-98.0); NRBC Abs Auto 0.020 X10*3/uL (0.0-0.012); NRBC Pct Auto 0.1 /100WBC (0.0-0.2); Platelet Count 209 X10*3/uL (160-400); Red Blood Count 2.85 X10*6/uL (4.20-5.50); White Blood Count 18.5 X10*3/uL (4.8-10.8)
[2024-10-28 06:30] LABS: Anion Gap 13 (12-20); Blood Urea Nitrogen 15 mg/dL (9-16); Calcium 8.9 mg/dL (8.4-10.2); Carbon Dioxide 23 mmol/L (22-29); Chloride 106 mmol/L (96-108); Creatinine Clr Calc Pharmacy 70.5; Estimated Glomerular Filt Rate > 60; Potassium 4.4 mmol/L (3.3-5.1); Sodium 138 mmol/L (135-145)
--- NOTE | 2024-10-28 06:53 | HE.PHANOTE ---
Re: Vanco Renal is improving. Trough returned at 13.7. Continue current dose of 750mf q12h with predicted AYC 567, predicted trough 17.8. Next trough 10/29 @ 0600.
[2024-10-28 07:03] LABS: Glucose, Whole Blood 79 mg/dL (60-115)
[2024-10-28 07:41] LABS: Glucose, Whole Blood 74 mg/dL (60-115)
[2024-10-28] MEDS: Sodium Chloride Tab 1 GM TABLET PO (08:10)
[2024-10-28] MEDS: Mag&Al/Sim/Diphenhyd/Lidocaine 10 ML ORAL.SUSP PO (08:10)
[2024-10-28] MEDS: cefEPime HCl/D5W 2 GM/50 ML PIGGYBACK IV ×2 (08:13→20:22)
[2024-10-28] MEDS: 0.9 % Sodium Chloride Flush 3 ML SYRINGE IVFLUSH ×2 (08:15→23:23)
[2024-10-28 08:36] LABS: Glucose, Whole Blood 133 mg/dL (60-115)
[2024-10-28 11:01] LABS: Glucose, Whole Blood 89 mg/dL (60-115)
--- NOTE | 2024-10-28 11:02 | MHC.CM.PN ---
IMM 10/28/24, Pt lives with her family, PCP is Dr. Carias, HCP is on file and confirmed: her son, Dimas. Pt. does not use home health services, her family helps her with what she needs. Family to transport home at DC, DCP: home with family care. CM to follow for DC needs.
--- NOTE | 2024-10-28 12:18 | PM.HEMONCCN ---
Subjective - Subjective Chief complaint: Shortness of breath Patient: known to practice within the last 3 years Consult date: 10/28/24 Primary Care Provider: Maurilio Carias MD Medical Summary: Diagnosis: Left breast infiltrating ductal carcinoma 10/2021/triple negative breast cancer. Never had screening mammograms. Self palpated small breast lump around March of this year but did not bring this to anybody's attention. This grew in size and she felt some discomfort, mammogram and subsequent ultrasound revealed 2.5 X2.6 cm spiculated mass in the upper outer quadrant with associated lymphadenopathy. Ultrasound revealed left breast mid to posterior depth, upper-outer quadrant mass measuring 2.3 cm. Large left axillary lymph node measuring 2.7 x 2.3 cm. Biopsy of left breast mass at 03:00 o'clock position revealed poorly differentiated invasive carcinoma with ductal features and squamous differentiation. Grade 3. Biopsy of left axillary lymph node (2.7x2.3cm) positive for metastatic carcinoma consistent with breast primary. Estrogen receptor -0%, progesterone receptor -0%, HER2 2+, FISH negative. Proliferation index high 30% by Ki- 67 immunostain. No family history of breast cancer. 4 para 3, 1 child of malnutrition in [facility]. No hormone replacement therapy. Menopause around 49. Clinical stage T2 N1. ER/OH/HER2 negative. Genetic screening showed no deleterious mutation, extended panel testing was performed by [facility]. She started neoadjuvant treatment with pembrolizumab along with weekly carboplatin and Taxol on 12/04/21 as per Keynote- 522 data. Post treatment ultrasound and mammogram of the left breast showed decrease in size of breast mass, measuring 1.3 x 1 cm compared to 2.6 x 2.5 cm. Left axilla ultrasound also showed decrease in size of lymph node now measuring 1.1 x 0.4 cm compared to 1.3 x 0.9 cm. She underwent left breast lumpectomy/lymph node dissection on 06/06/2022, pathology revealed-residual invasive ductal carcinoma with squamous features, MS BR grade 3 negative margins. Tumor size 0.2 cm. Widespread ductal carcinoma in Situ, nuclear grade 2 with necrosis and positive superior margin, very close to multiple other margins. Thirteen lymph nodes negative for metastatic carcinoma. Repeat IHC showed ER/OH and HER2 negative. Pathological stage ypT1a ypN0. DCIS, nuclear grade 2, extensive present in 17 of 21 blocks. She underwent left simple mastectomy on 07/04/2022. Pathology revealed benign tissue without residual tumor. Her left chest wall pacemaker was removed and reinserted in the right abdominal wall so as to facilitate adjuvant radiation therapy to left chest wall. She completed adjuvant pembrolizumab end of 2022. She completed adjuvant radiation therapy in December 2022. CT chest 08/31/2024: Right lung mass measuring 7.9 x 5.8 x 5.2 cm in the right upper lobe. Mediastinal lymphadenopathy with right paratracheal lymph node measuring 1.3 cm and left infrahilar node measuring 1.3 cm. Bronchoscopy and biopsy of left upper lobe mass performed 09/14/2024 revealed squamous cell carcinoma, moderately differentiated. Similar morphologic appearance to her breast cancer histology. ER/OH negative HER2 pending. PD-L1 TPF 3%, CPS 4. She had CT brain with and without contrast on 09/03/2024 which showed 10 mm in enhancing lesion in the right frontal lobe with adjacent vasogenic edema concerning for metastatic disease. She has been started on dexamethasone 2 mg t.i.d.. She was seen by Dr. Brenner from Neurosurgery as well as radiation oncology at [facility]. Surgery for brain radiation will be deferred given the widely metastatic disease from breast primary. Further solitary brain lesion, she was told that she could get stereotactic radiation therapy. Echocardiogram obtained on 09/24/24 revealed no significant change compared to prior study dated: 05/25/2022. Rental Representative Utilized?: No - Latvian Speaking HPI - Consult Narrative Reason for consult: Respiratory failure/pneumonia, metastatic breast cancer Narrative: Lupe Thomas is a 68 year old female with metastatic breast cancer diagnosed in 09/04/2024 who presented to emergency department with complaints of chills, fever and acute onset shortness of breath. She was undergoing palliative chemotherapy with Doxil, recently completed stereotactic brain radiation therapy at [facility] for solitary brain metastasis. She presented with progressive generalized weakness but sudden onset of chills and shortness of breath. She did not check temperature at home. Her daughter brought her to emergency department were workup revealed fever up to 102 with tachycardia and respiratory distress. She was hypoxic with O2 sats of 77% on room air. She tested negative for COVID, flu and influenza. Chest x-ray showed right upper lobe mass with airspace opacity consistent with pneumonia in the right middle lobe. She was treated with IV fluids, hydrocortisone, diltiazem and broad-spectrum antibiotics with cefepime and vancomycin. She is on oxygen high-flow. CT angiogram was negative for pulmonary embolism. Review of Systems - Constitutional Reports as per HPI, Reports fatigue, Reports malaise, Reports poor appetite - Cardiovascular Reports no additional cardiovascular complaints - Respiratory Reports no additional respiratory complaints [facility] Medical History: Medical History (Last Reviewed 10/27/24 @ 19:49 by SP Batista) Abnormal ultrasound of breast Colon cancer screening Essential hypertension GERD (gastroesophageal reflux disease) Hypercholesteremia Hyperglycemia Lung mass Lymphadenopathy, mediastinal On beta harley at home Pacemaker Onset Date: ~2008 PAF (paroxysmal atrial fibrillation) Port-A-Cath in place PUD (peptic ulcer disease) Screening for breast cancer Vertigo Family History: Family History (Last Reviewed 10/27/24 @ 19:49 by SP Batista) Mother No problems noted. Father No problems noted. Surgical History: Surgical History (Last Reviewed 10/27/24 @ 19:49 by SP Batista) History of appendectomy History of cholecystectomy History of left mastectomy Onset Date: 07/04/22 History of lumpectomy of left breast History of lung biopsy History of permanent cardiac pacemaker placement History of tubal ligation Hx of colonoscopy Social History: Social History (Last Reviewed 10/27/24 @ 19:49 by SP Batista) Living Situation History: Household Members: Family Housing: House Are you a primary career placement services counselor to a significant other at home: No Do you presently have visiting nurse or other home services: No Tobacco History: Patient Tobacco Use Status: Never used Tobacco Tobacco use type: Cigarette e-Cigarette/Vaping Use: Never Used Second Hand Smoke Exposure: No Advance Directives: Advance Directives Date on File: 09/08/24 Occupation Assessmet: service: No Current occupational status: retired 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 Fluconazole (Fluconazole 50 Mg Tablet) 50 mg PO DAILY [facility] Stop: 10/29/24 09:01 Last Admin: 10/28/24 08:10 Dose: 50 mg Glucose (Glucose Gel 15 Gm Gel..Gram.) 15 gm PO Q15M PRN; Protocol PRN Reason: per Hypoglycemia Standing Ord. Cefepime HCl (Maxipime) 2 gm in 50 mls @ 100 mls/hr IV Q12H [facility] Last Infusion: 10/28/24 09:04 Dose: Infused Vancomycin HCl 750 mg/ Sodium (Chloride) 265 mls @ 265 mls/hr IV Q12H [facility] Last Infusion: 10/28/24 10:27 Dose: Infused Insulin Human Lispro (Insulin Lispro 100 Unit/Ml 3 Ml Vial) 0 unit SUBCUT QIDACHS [facility]; Protocol Last Admin: 10/28/24 07:44 Dose: Not Given Lidocaine/Diphenhydr/Alum/Mg/Simeth (Mag&Al/Sim/Diphenhyd/Lidocaine 10 Ml Oral.Susp) 10 ml PO BID [facility] Last Admin: 10/28/24 08:10 Dose: 10 ml Magnesium Hydroxide (Milk Of Magnesia 30 Ml Oral.Susp) 30 ml PO DAILY PRN PRN Reason: Constipation Melatonin (Melatonin 3 Mg Tablet) 6 mg PO BEDTIME PRN PRN Reason: Insomnia Metoprolol Tartrate (Metoprolol Tartrate 50 Mg Tablet) 50 mg PO BID [facility]; Protocol Last Admin: 10/28/24 08:10 Dose: 50 mg Morphine Sulfate (Morphine Sulfate 4 Mg/Ml Cartridge) 4 mg IVPUSH Q4H PRN; Protocol PRN Reason: Pain, Severe (Pain Scale 7-10) Last Admin: 10/28/24 10:55 Dose: 4 mg Omeprazole (Omeprazole 40 Mg Capsule.Dr) 40 mg PO DAILY@0630 [facility] Last Admin: 10/28/24 05:55 Dose: 40 mg Oxycodone HCl (Oxycodone Hcl Immed Release 5 Mg Tablet) 5 mg PO BEDTIME [facility] Last Admin: 10/27/24 20:44 Dose: 5 mg Pharmacy Consult (Consult Rx Vancomycin Dosing) 1 each MISCELLANE DAILY PRN PRN Reason: Consult order Pravastatin Sodium (Pravastatin Sodium 40 Mg Tablet) 40 mg PO DAILY [facility] Last Admin: 10/28/24 08:10 Dose: 40 mg Rivaroxaban (Rivaroxaban 20 Mg Tablet) 20 mg PO DAILY [facility] Last Admin: 10/28/24 08:10 Dose: 20 mg Sodium Chloride (0.9 % Sodium Chloride Flush 3 Ml Syringe) 3 ml IVFLUSH QSHIFT [facility] Last Admin: 10/28/24 08:15 Dose: 3 ml Sodium Chloride (Sodium Chloride Tab 1 Gm Tablet) 1 gm PO BID [facility] Last Admin: 10/28/24 08:10 Dose: 1 gm Home Medications ?Medication ?Instructions ?Recorded ?Confirmed ?Type dexamethasone 2 mg tablet 2 mg PO BEDTIME 10/21/24 10/27/24 History Magic Mouthwash 10 ml PO BID 10/27/24 10/27/24 History Diphen/Nystat/Antacid 1:1:1 240 mL suspension acetaminophen 325 mg tablet 650 mg PO Q6H PRN Pain 10/27/24 10/27/24 History oxycodone 5 mg tablet 5 mg PO BEDTIME 10/27/24 10/27/24 History Allergies Allergy/AdvReac Type Severity Reaction Status Date / Time latex (LATEX) Allergy Intermediate RASH WITH Verified 10/27/24 07:24 CONTACT Physical Exam Vital signs: Vital Signs Temp 97.4 F 10/28/24 10:49 Pulse 89 10/28/24 10:49 Resp 20 10/28/24 11:25 BP 135/63 10/28/24 10:49 Pulse Ox 94 10/28/24 10:49 O2 Del Method High Flow Nasal Cannula 10/28/24 10:49 O2 Flow Rate 50 10/28/24 10:49 FiO2 45 10/28/24 10:49 Intake & Output 10/27/24 10/28/24 10/28/24 18:59 06:59 18:59 Intake Total 2935 / 3250 315 / 3250 315 / 315 Output Total 1300 / 2050 750 / 2050 Balance 1635 / 1200 -435 / 1200 315 / 315 Urine Output (Average ml/kg/hr) 2.15 1.24 1.24 Intake: Intake, IV Amount 2935 / 3250 315 / 3250 315 / 315 0.9 % Sodium Chloride 1,515 ml 1515 / 1515 @ 1515 mls/hr IV .Q1H [facility] Rx#: [id number] Acetaminophen 1,000 mg In 100 100 / 100 ml @ 400 mls/hr IV ONCE ONE Rx# :[id number] Lactated Ringers 1,000 ml @ 999 1000 / 1000 mls/hr IV .Q1H1M [facility] Rx#: [id number] cefEPime HCl/D5W 2 gm In 50 ml 50 / 100 50 / 100 50 / 50 @ 100 mls/hr IV Q12H [facility] Rx#: [id number] vancomycin HCL 1,000 mg In 0.9 270 / 270 % Sodium Chloride 250 ml @ 270 mls/hr IV ONCE ONE Rx#: [id number] vancomycin HCL 750 mg In 0.9 % 265 / 265 265 / 265 Sodium Chloride 250 ml @ 265 mls/hr IV Q12H [facility] Rx#: [id number] Output: Output, Urine Amount 0 / 0 Output, Urine Amount (Catheter) 1300 / 0 750 / 2050 Urethral 1300 / 0 750 / 2050 Other: Number of Incontinent Voids 0 Number of Unmeasured Voids 0 Number of Bowel Movements 0 Urine Color Yellow Last Bowel Movement 10/23/24 10/25/24 Weight 50.5 kg Weight 50.5 kg - Constitutional Present: no acute distress - Routine HEENT Exam Head: Present: normal inspection Eye: Present: EOMI, PERRL - Routine Neck Exam Present: supple. Absent: lymphadenopathy - Routine Respiratory Exam Present: CTAB - Routine Cardiovascular Exam Cardiovascular: Present: RRR, S1, S2 - Routine Abdominal Exam Present: soft - Routine Extremities Exam Absent: pedal edema - Routine Skin Exam Present: intact - Routine Neurological Exam Present: alert, oriented X3 Hem/Onc Consult Result - Labs CBC & Chem 7: 10/28/24 06:08 10/28/24 06:08 Labs: Short CBC 10/27/24 10/28/24 Range/Units 19:27 06:08 WBC 16.2 H 18.5 H (4.8-10.8) X10*3/uL Hgb 8.0 L 8.7 L (12.0-16.0) g/dl Hct 22.6 L D 25.6 L (37.0-47.0) % Plt Count 170 D 209 (160-400) X10*3/uL BMP 10/28/24 06:08 Sodium 138 Potassium 4.4 Chloride 106 Carbon Dioxide 23 BUN 15 Creatinine 0.60 Calcium 8.9 Assessment and Plan Patient Active problem list reviewed?: Yes (1) Invasive ductal carcinoma of left breast Problem details: Status post mastectomy Status: Chronic Assessment and plan: 1. This is a 68-year-old woman with metastatic left breast invasive ductal carcinoma (triple negative), coronary artery disease, atrial fibrillation on anticoagulation, on palliative chemotherapy presenting with acute hypoxic respiratory failure secondary to multifocal pneumonia. CT angiogram performed 10/27/2024 shows no evidence of PE, known 5.9 x 5.4 cm right upper lobe mass and diffuse confluent bilateral airspace opacities. Differential diagnostic considerations included pulmonary edema, diffuse pneumonia or hemorrhage. She is on cefepime and vancomycin. Blood cultures so far are negative. Hypotension and fever have resolved. Leukocytosis probably secondary to steroids and infection. She was developed dilutional anemia, closely monitor. She recently completed stereotactic brain radiation therapy and is on dexamethasone taper. Decrease dexamethasone to 1 mg daily. 2. Oral mucositis secondary to chemotherapy. Continue with magic mouthwash oral rinses and Diflucan. 3. Atrial fibrillation. She is on Xarelto and metoprolol. As recommended by Cardiology, resume diltiazem once blood pressure stabilizes. Recently performed echocardiogram shows normal LV function. Thank you for the consultation, will follow with you. - Time Spent With Patient Time Spent with Patient (in minutes): 20 Additional Coding: - Additional E/M codes Complex E/M visit Add On: CPT G2211
--- NOTE | 2024-10-28 13:22 | MHC.CLN ---
PT IS MODERATELY MALNOURISHED PT WITH MILDLY DEPLETED SUBCUTANEOUS FAT AND MUSCLE MASS WITH 14% SIGNIFICANT WT LOSS X 6 MONTHS AND CHRONIC POOR PO INTAKE DIET RX: 2000DM -CAN LIBERALIZE TO PROMOTE PO INTAKE AND VARIETY RECOMMEND ADDING ENSURE BID TO PROVIDE 700KCALS, 40G PROTEIN MONITOR PO INTAKE AND ENCOURAGE SUPPLEMENTS SEE FULL ASSESSMENT
--- NOTE | 2024-10-28 14:35 | HO.PM.IMPN ---
Subjective Subjective Date of Service: 10/28/24 Interval History: Feeling better, breathing improved More awake and alert Still on 50L high-flow No signs of bleeding No lightheadedness or dizziness Some pain with swallowing Review of Systems Review of Systems: Yes all other systems are reviewed and are negative Physical Exam Exam: Exam: General: AOx3. Resting comfortably. High-flow on. Speaking in full sentences Resp: CTA bilaterally. No significant increased work of breathing CVS: Irregularly irregular rhythm. GI: +BS, NT, no distention. Skin: Warm, dry Neuro: Cranial nerves II-XII grossly intact bilaterally. Motor grossly intact bilaterally Extremities: No edema Psych: Appropriate affect Vital Signs: Vital Signs: Last Vital Signs Temp 97.4 F 10/28/24 10:49 Pulse 89 10/28/24 10:49 Resp 20 10/28/24 11:25 BP 135/63 10/28/24 10:49 Pulse Ox 94 10/28/24 10:49 O2 Del Method High Flow Nasal C annula 10/28/24 10:49 O2 Flow Rate 50 10/28/24 10:49 FiO2 45 10/28/24 10:49 BMI result Body Mass Index 19.7 Objective Data Active Medications Acetaminophen (Acetaminophen 325 Mg Tablet) 650 mg PO Q6H PRN PRN Reason: Pain, Mild 1-3,fever,headache Last Admin: 10/27/24 20:10 Dose: 650 mg Documented By: MARCIA Calcium Carbonate (Calcium Carbonate 750 Mg Tab.Chew) 750 mg PO Q4H PRN PRN Reason: Heartburn Dexamethasone (Dexamethasone 0.5 Mg Tablet) 1 mg PO DAILY [facility] Last Admin: 10/28/24 14:24 Dose: 1 mg Documented By: KATIE Dextrose (Dextrose 50 % 25 Gm/50 Ml Syringe) 25 gm IVPUSH Q15M PRN; Protocol PRN Reason: per Hypoglycemia Standing Ord. Fluconazole (Fluconazole 50 Mg Tablet) 50 mg PO DAILY [facility] Stop: 10/29/24 09:01 Last Admin: 10/28/24 08:10 Dose: 50 mg Documented By: KATIE Glucose (Glucose Gel 15 Gm Gel..Gram.) 15 gm PO Q15M PRN; Protocol PRN Reason: per Hypoglycemia Standing Ord. Cefepime HCl (Maxipime) 2 gm in 50 mls @ 100 mls/hr IV Q12H [facility] Last Infusion: 10/28/24 09:04 Dose: Infused Documented By: KATIE Vancomycin HCl 750 mg/ Sodium (Chloride) 265 mls @ 265 mls/hr IV Q12H [facility] Last Infusion: 10/28/24 10:27 Dose: Infused Documented By: KATIE Insulin Human Lispro (Insulin Lispro 100 Unit/Ml 3 Ml Vial) 0 unit SUBCUT QIDACHS [facility]; Protocol Last Admin: 10/28/24 12:45 Dose: Not Given Documented By: KATIE Non-Admin Reason: No Insulin Coverage Lidocaine/Diphenhydr/Alum/Mg/Simeth (Mag&Al/Sim/Diphenhyd/Lidocaine 10 Ml Oral.Susp) 10 ml PO BID [facility] Last Admin: 10/28/24 08:10 Dose: 10 ml Documented By: KATIE Magnesium Hydroxide (Milk Of Magnesia 30 Ml Oral.Susp) 30 ml PO DAILY PRN PRN Reason: Constipation Melatonin (Melatonin 3 Mg Tablet) 6 mg PO BEDTIME PRN PRN Reason: Insomnia Metoprolol Tartrate (Metoprolol Tartrate 50 Mg Tablet) 50 mg PO BID [facility]; Protocol Last Admin: 10/28/24 08:10 Dose: 50 mg Documented By: KATIE Morphine Sulfate (Morphine Sulfate 4 Mg/Ml Cartridge) 4 mg IVPUSH Q4H PRN; Protocol PRN Reason: Pain, Severe (Pain Scale 7-10) Last Admin: 10/28/24 14:24 Dose: 4 mg Documented By: KATIE Omeprazole (Omeprazole 40 Mg Capsule.Dr) 40 mg PO DAILY@0630 [facility] Last Admin: 10/28/24 05:55 Dose: 40 mg Documented By: CARLOS EDUARDO Oxycodone HCl (Oxycodone Hcl Immed Release 5 Mg Tablet) 5 mg PO BEDTIME [facility] Last Admin: 10/27/24 20:44 Dose: 5 mg Documented By: MARCIA Pharmacy Consult (Consult Rx Vancomycin Dosing) 1 each MISCELLANE DAILY PRN PRN Reason: Consult order Pravastatin Sodium (Pravastatin Sodium 40 Mg Tablet) 40 mg PO DAILY [facility] Last Admin: 10/28/24 08:10 Dose: 40 mg Documented By: KATIE Rivaroxaban (Rivaroxaban 20 Mg Tablet) 20 mg PO DAILY [facility] Last Admin: 10/28/24 08:10 Dose: 20 mg Documented By: KATIE Sodium Chloride (0.9 % Sodium Chloride Flush 3 Ml Syringe) 3 ml IVFLUSH QSHIFT [facility] Last Admin: 10/28/24 08:15 Dose: 3 ml Documented By: KATIE Sodium Chloride (Sodium Chloride Tab 1 Gm Tablet) 1 gm PO BID [facility] Last Admin: 10/28/24 08:10 Dose: 1 gm Documented By: KATIE Labs 10/28/24 06:08 10/28/24 06:08 Labs: Laboratory Results - last 24 hr 10/27/24 10/27/24 10/28/24 19:27 20:44 06:08 MCV 87.6 89.8 MCH 31.0 30.5 MCHC 35.4 H 34.0 RDW 17.5 H 17.5 H Plt Count 170 D 209 MPV 8.3 L 8.4 L Absolute Nucleated RBC 0.020 H 0.020 H Nucleated RBC % (auto) 0.1 0.1 Anion Gap 13 Estim Creat Clear Calc 70.5 Estimated GFR > 60 POC Glucose 130 H Random Glucose 89 Calcium 8.9 Random Vancomycin 13.7 L 10/28/24 10/28/24 10/28/24 06:56 07:37 08:32 MCV MCH MCHC RDW Plt Count MPV Absolute Nucleated RBC Nucleated RBC % (auto) Anion Gap Estim Creat Clear Calc Estimated GFR POC Glucose 79 74 133 H Random Glucose Calcium Random Vancomycin 10/28/24 10:58 MCV MCH MCHC RDW Plt Count MPV Absolute Nucleated RBC Nucleated RBC % (auto) Anion Gap Estim Creat Clear Calc Estimated GFR POC Glucose 89 Random Glucose Calcium Random Vancomycin Microbiology Microbiology Results: Microbiology 10/27/24 07:46 Blood Culture - Preliminary Blood - Venous No growth after 24 hours. 10/27/24 08:01 Blood Culture - Preliminary Blood - Venous No growth after 24 hours. Assessment and Plan (1) Atrial fibrillation with rapid ventricular response: Status: Acute (2) Pneumonia: Status: Acute (3) Acute hypoxic respiratory failure: Status: Acute Plan Pt is a 68-year-old female with a PMH significant for stage IV breast cancer with mets to the brain on chemoradiation therapy follows with Dr. Mcgill, persistent AFib on Xarelto, [id number] type 2 diabetes,?HTN, HLD, and GERD who presents to the ED with?shaking chills, headache, cough, and SOB upon awakening from sleep at 04:00 this morning. Pt is admitted to the hospital for treatment and further evaluation of acute hypoxic respiratory failure in the setting of pneumonia with sepsis in an immunocompromised pt. Acute hypoxic respiratory failure in the setting of pneumonia with sepsis in an immunocompromised pt Pt with rigors, SOB, cough, CXR showing right middle lobe opacity consistent with pneumonia, desatting into the 70s on RA CTA negative for PE, but showing diffuse confluent bilateral airspace opacities concerning for pulmonary edema vs diffuse pneumonia vs hemorrhage Met sepsis criteria with fever, tachycardia, tachypnea, leukocytosis; lactic acid likely falsely elevated due to rigors Pt given sepsis bolus fluids and started on broad-spectrum antibiotics in the ED Continue vancomycin and cefepime, day 2 Pt currently on high-flow, wean as tolerated Monitor respiratory status Persistent AFib with RVR Initially presented with HR in 130s-140s Given diltiazem 15 mg IV in the ED to good effect Can continue diltiazem 240 mg daily once BP improves, per Cardiology Continue Xarelto, metoprolol Acute lactic acidosis, resolved Initial lactic acid 8.1 with repeat normalized At 1.7 secondary to rigors, not severe sepsis Oral mucositis Secondary to chemotherapy Continue Magic Mouthwash Fluconazole 50 mg daily x2 days Acute on chronic anemia Repeat CBC showed hgb drop from 10.0-->8.0; improved to 8.7 this morning Likely delusional from IVF Monitor CBC Hx of breast cancer with metastasis to brain Pt given stress dose of hydrocortisone in the ED Reduce dexamethasone to 1mg daily Oncology consult HTN BP has been soft, hold lisinopril [id number] type [address] on sliding scale insulin, diabetic diet HLD Continue statin GERD Continue PPI Full Code Attending:?Dr. Cordon DVT Prophylaxis: On Xarelto Pt will require a hospitalization of at least two nights for treatment of?acute hypoxic respiratory failure in the setting of pneumonia with sepsis in an immunocompromised pt. pt will require hospital level care for administration of high-flow supplemental oxygen, IV antibiotics, close monitoring of labs and respiratory status. Quality Stroke Does the patient have a stroke diagnosis?: No VTE Prior VTE?: No VTE Risk Level:: Medical - moderate - high VTE Device Contraindication: Treatment Not Indicated VTE Drug Contraindication: N/A - Med Ordered
[2024-10-28 16:29] LABS: Glucose, Whole Blood 122 mg/dL (60-115)
--- NOTE | 2024-10-28 17:30 | PC.NURSE ---
Late entry Around 1730 pt hr increasing into the 160-170s, upon assessing, pt having increase WOB, symptomatic complaining of chest pain, sharp pain radiating up to her head. Message sent to PA. Pt oxygen dropping to low 70s. PA now at the bedside. Respiratory called and at bed side. Pt now maxed out on high flow and non rebreather. IV push cardizem given. VBG ordered and taken. Pt now placed on rescue BIPAP, recovered well, O2 now high 90s and hr better controlled in the 80-90s. EKG taken, confirmed afib. No change from this morning. Labs drawn. Pt transferred to ICU.
--- NOTE | 2024-10-28 18:08 | PM.EVENT ---
Event Note Date of Service: 10/28/24 Event Note: Notified by nursing that pt was becoming tachycardic. Pt with chronic AFib, noted be in RVR of 150-160s. Gave pt diltiazem 15 mg IV to good effect with improvement of HR into the 80s. Pt however, was also noted to be in respiratory distress, with increased work of breathing and desatting into the 70s while on high-flow. Pt was placed on OxyMask and then on non-rebreather to little effect, and eventually transitioned to rescue BiPAP with good response. CXR, EKG, ABG, CBC, BMP, BNP, and troponin all ordered. ICU was contacted and pt will be transferred to the ICU for further management. Time Spent With Patient Time: Total time managing care of this patient today ____ minutes.
--- NOTE | 2024-10-28 18:09 | PC.RT ---
RT called to bedside for pt desat to 70's on HFNC. Upon arrival, pt had obvious increased WOB noted with SATs reading 73%. HFNC increased to 50L/100% with minimal improvement in SAT. ALAR nasal probe used to obtain accurate SAT reading. NRB placed over HFNC, SATs increased to mid 80's. ABG was drawn and RT placed pt on bipap. On bipap, SATs increased to 97% and pt stated relief in work of breathing. Pt comfortable at this time. Transfer to ICU pending.
[2024-10-28] MEDS: Furosemide 40 MG/4 ML VIAL IVPUSH (18:23)
[2024-10-28 18:47] LABS: Hematocrit 25.4 % (37.0-47.0); Hemoglobin 8.8 g/dl (12.0-16.0); Mean Corpuscular HGB Conc 34.6 g/dl (31.0-35.0); Mean Corpuscular Hemoglobin 30.3 pg (27.0-33.0); Mean Corpuscular Volume 87.6 fL (80.0-98.0); NRBC Abs Auto 0.100 X10*3/uL (0.0-0.012); NRBC Pct Auto 0.4 /100WBC (0.0-0.2); Platelet Count 283 X10*3/uL (160-400); Red Blood Count 2.90 X10*6/uL (4.20-5.50); White Blood Count 24.0 X10*3/uL (4.8-10.8)
[2024-10-28 18:58] LABS: Anion Gap 15 (12-20); Blood Urea Nitrogen 17 mg/dL (9-16); Calcium 9.0 mg/dL (8.4-10.2); Carbon Dioxide 21 mmol/L (22-29); Chloride 100 mmol/L (96-108); Creatinine Clr Calc Pharmacy 64.1; Estimated Glomerular Filt Rate > 60; Potassium 4.4 mmol/L (3.3-5.1); Sodium 132 mmol/L (135-145)
[2024-10-28 19:04] LABS: B Type Natriuretic Peptide 1227 pg/mL (<100)
[2024-10-28 19:09] LABS: Troponin-I High Sensitivity 54.6 ng/L (<3.5-17.0)
--- NOTE | 2024-10-28 19:44 | PM.CCN ---
Critical Care Event Note Summary Date of Service: 10/28/24 Code activated: No Narrative: This case had a high probability of a clinically significant, sudden, or life threatening deterioration of this patient's condition which required my full and direct attention, intervention and personal management. Critical Care Time (minutes): 30 Comment: 68-year-old female with a past medical history significant for stage IV breast cancer with mets to the brain on chemoradiation therapy follows with Dr. Mcgill, persistent AFib on Xarelto, [id number] type 2 diabetes, hypertension, hyperlipidemia, and GERD who presented to the hospital on 10/27/2024 with shaking chills, headache, cough, and shortness of breath, She was admitted to hospital medicine for treatment of acute hypoxic respiratory failure in the setting of pneumonia with sepsis in an immunocompromised patient. Treated with dexamethasone, cefepime and vancomycin.? Patient also noted to be in? atrial fibrillation with RVR 130s to 140s,? treated with IV diltiazem 50 mg? in ED,? now on? dialysis and 240 mg p.o, home metoprolol and xarelto, Per cardiology ?Today,? patient is a significant amount of respiratory distress, ? saturation down to 70s while max on high-flow nasal cannula,? switched to non-rebreather but continued to be hypoxic.? She was also noted to be in AFib with RVR 150s to 160s.? Chest x-ray, ? I personally reviewed,? and consistent with pulmonary edema.? She was placed on BiPAP and transferred to ICU for management of acute hypoxic respiratory failure due to pulmonary edema.? Plan:? ?Diuresis with Lasix ?Continue antibiotics? and dexamethasone ?Patient is now in AFib rate controlled,? continue p.o. ? Cardizem, metoprolol and Xarelto ?Wean off BiPAP as tolerated
[2024-10-28 20:48] LABS: Glucose, Whole Blood 222 mg/dL (60-115)
[2024-10-28 21:40] LABS: Troponin-I High Sensitivity 72.0 ng/L (<3.5-17.0)
[2024-10-29] VITALS (26 sets, daily range): BP systolic 92–134; BP diastolic 47–84; PULSE 60–122; RESP 16–33; TEMP 35.8–39.2; O2SAT 82–97; BMI 19.7
[2024-10-29 05:46] LABS: VBG HCO3 23 mmol/L (22-26); VBG O2 % Saturation 75.0 %
[2024-10-29 05:52] LABS: Venous Blood Gas Refer to POC result
[2024-10-29 06:28] LABS: Albumin Level 2.4 g/dL (3.5-5.0); Anion Gap 13 (12-20); Blood Urea Nitrogen 14 mg/dL (9-16); Calcium 7.1 mg/dL (8.4-10.2); Carbon Dioxide 18 mmol/L (22-29); Chloride 111 mmol/L (96-108); Creatinine Clr Calc Pharmacy 76.9; Estimated Glomerular Filt Rate > 60; Hematocrit 25.0 % (37.0-47.0); Hemoglobin 8.7 g/dl (12.0-16.0); Magnesium 1.2 mg/dL (1.6-2.6); Mean Corpuscular HGB Conc 34.8 g/dl (31.0-35.0); Mean Corpuscular Hemoglobin 30.7 pg (27.0-33.0); Mean Corpuscular Volume 88.3 fL (80.0-98.0); NRBC Abs Auto 0.050 X10*3/uL (0.0-0.012); NRBC Pct Auto 0.3 /100WBC (0.0-0.2); Platelet Count 239 X10*3/uL (160-400); Potassium 2.7 mmol/L (3.3-5.1); Red Blood Count 2.83 X10*6/uL (4.20-5.50); Sodium 139 mmol/L (135-145); White Blood Count 16.2 X10*3/uL (4.8-10.8)
--- NOTE | 2024-10-29 06:36 | HE.PHANOTE ---
Re: Vanco Renal is improving. Trough returned at 20.2. Dose held for 8 hours and changed to 500mg q12h with predicted AUC 410, predicted trough 13.3. Next trough 10/30 @ 1200.
[2024-10-29] MEDS: Magnesium Sulfate/H2O 2 GM/50 ML PIGGYBACK IV (06:43)
[2024-10-29] MEDS: Potassium Chloride/H20 40 MEQ/100 ML PIGGYBACK 50 MEQ IV ×2 (06:43→10:32)
--- NOTE | 2024-10-29 07:01 | PC.NURSE ---
Upon initial assessment at 1900- pt A&Ox4, calm/cooperative, OLIVO. Tmax 102.0 via core bladder probe- given APAP IV x1 per MAY. Afib with intermittent V-pacing and PVCs on tele, HR 80-90s. SBP > 90, MAP > 65. Pt c/o chest tightness- THIRD HELPER Radha notified, EKG previously obtained. On BiPAP 16/8/100%, titrated off and transitioned to HFNC 55L/65% at 0000. SpO2 goal > 88% per THIRD HELPER. Pt denies SOB/dyspnea, endorses non-productive cough. C/o nausea, given zofran IV x1 per MAY with good effect. Tolerating small amount of PO intake. No BM. Indwelling catheter in place, UOP as charted. Skin overall intact- coccyx red but blanching. Repositioned q2hr with pillows. Bed locked in lowest position, alarm on, call palencia in reach. Pt/family updated on pt status/plan of care at beginning of shift. See EMR/flowsheet for further details.
[2024-10-29 07:09] LABS: Glucose, Whole Blood 124 mg/dL (60-115)
[2024-10-29 07:31] LABS: Band Neutrophils Percent 11 % (3-5); Eosinophils Absolute Manual 0.2 X10*3/uL (0.0-0.4); Eosinophils Percent Manual 1 % (0-4); Metamyelocytes Absolute 0.2 X10*3/uL; Metamyelocytes Percent 1 %; Monocytes Absolute Manual 0.3 X10*3/uL (0.1-1.2); Monocytes Percent Manual 2 % (2-11); Neutrophils Absolute Manual 15.6 X10*3/uL (2.0-8.3); Neutrophils Percent Manual 85 % (45-73)
[2024-10-29 07:33] LABS: Hypochromasia 1+ (5-14) /OIF; Polychromasia 1+ (0-2) /OIF; RBC Morphology NOTED
[2024-10-29] MEDS: 0.9 % Sodium Chloride Flush 3 ML SYRINGE IVFLUSH ×2 (07:52→14:08)
--- NOTE | 2024-10-29 09:01 | PC.NURSE ---
Assumed care at 0700. Pt on HFNC: 55L at 65% fio2. Pt complaint of pleuritic chest pain, analgesic administered. Pt to be transferred to [facility]. Report given to Meeta MEDINA at approx 0830. See assessments and MAR for further details. Pt repositioned q2hrs as tolerated. Fall/safety precautions in place.
--- NOTE | 2024-10-29 09:44 | P.PNCC_ITS ---
Subjective Subjective Date of Service: 10/29/24 Interval History: 68-year-old lady with underlying history of metastatic to the brain and lung breast cancer under oncology care on chemo and radiation, AFib on Xarelto, diabetes mellitus, hypertension admitted on 10/27/2024 with septic prodrome deemed to be secondary to pneumonia and treated with empiric antibiotics. Hospital course complicated by AFib with RVR and worsening hypoxemia on 10/28/2024 with inadequate control on high-flow nasal cannula requiring noninvasive positive pressure ventilation, transferred to intensive care unit. At that time, patient noted to have flash pulmonary edema, she was started on diuresis with significant improvement in her respiratory status and titrated down to high-flow nasal cannula. Critical Care Time (minutes): 0 Physical Exam 2 Vital Signs: Vital Signs: Last Vital Signs Temp 96.8 F 10/29/24 09:30 Pulse 80 10/29/24 09:30 Resp 20 10/29/24 09:30 BP 134/66 10/29/24 09:30 Pulse Ox 96 10/29/24 09:30 O2 Del Method High Flow Nasal C annula 10/29/24 09:30 O2 Flow Rate 55 10/29/24 08:00 FiO2 65 10/29/24 08:00 BMI result Body Mass Index 19.7 Const: General: no acute distress, alert and awake Eyes: Sclerae: sclerae normal EOM: EOMs intact bilaterally Neck: Neck: Yes no lymphadenopathy, Yes trachea midline and Yes supple Resp: Effort & Inspection: normal respiratory effort and no respiratory distress Auscultation: crackles (Bilateral) Cardio: Rate: regular rate Rhythm: regular rhythm Heart sounds: no gallops, no murmurs and no rubs GI: Palpation (GI): Soft to palpation and Other GI palpation findings present ( Nontender) Auscultation: normal bowel sounds Extrem: General: No clubbing, No cyanosis and Yes edema (Trace bilateral) Objective Data Labs 10/29/24 05:38 10/29/24 05:38 Labs: Laboratory Results - last 24 hr 10/28/24 10/28/24 10/28/24 10:58 16:24 18:15 WBC 24.0 H RBC 2.90 L Hgb 8.8 L Hct 25.4 L MCV 87.6 MCH 30.3 MCHC 34.6 RDW 17.6 H Plt Count 283 D MPV 8.2 L Immature Gran % (Auto) Neut % (Auto) Lymph % (Auto) [place] % (Auto) Eos % (Auto) Baso % (Auto) Lymph # (Auto) [place] # (Auto) Eos # (Auto) Baso # (Auto) Abs Immat Gran (auto) Absolute Neuts (auto) Absolute Nucleated RBC 0.100 H Nucleated RBC % (auto) 0.4 H Neutrophils % (Manual) Band Neutrophils % Monocytes % (Manual) Eosinophils % (Manual) Metamyelocytes % Abs Neuts (Manual) Monocytes # (Manual) Eosinophils # (Manual) Metamyelocytes # Platelet Estimate Plt Morphology Comment RBC Morphology Polychromasia Hypochromasia VBG pH VBG pCO2 VBG pO2 VBG HCO3 VBG O2 Saturation VBG Base Excess Sodium 132 L Potassium 4.4 Chloride 100 Carbon Dioxide 21 L Anion Gap 15 BUN 17 H Creatinine 0.66 Estim Creat Clear Calc 64.1 Estimated GFR > 60 POC Glucose 89 122 H Random Glucose 211 H Lactic Acid Calcium 9.0 Phosphorus Magnesium Troponin I High Sens B-Natriuretic Peptide Albumin Random Vancomycin 10/28/24 10/28/24 10/28/24 18:16 20:44 21:06 WBC RBC Hgb Hct MCV MCH MCHC RDW Plt Count MPV Immature Gran % (Auto) Neut % (Auto) Lymph % (Auto) [place] % (Auto) Eos % (Auto) Baso % (Auto) Lymph # (Auto) [place] # (Auto) Eos # (Auto) Baso # (Auto) Abs Immat Gran (auto) Absolute Neuts (auto) Absolute Nucleated RBC Nucleated RBC % (auto) Neutrophils % (Manual) Band Neutrophils % Monocytes % (Manual) Eosinophils % (Manual) Metamyelocytes % Abs Neuts (Manual) Monocytes # (Manual) Eosinophils # (Manual) Metamyelocytes # Platelet Estimate Plt Morphology Comment RBC Morphology Polychromasia Hypochromasia VBG pH VBG pCO2 VBG pO2 VBG HCO3 VBG O2 Saturation VBG Base Excess Sodium Potassium Chloride Carbon Dioxide Anion Gap BUN Creatinine Estim Creat Clear Calc Estimated GFR POC Glucose 222 H Random Glucose Lactic Acid 1.5 Calcium Phosphorus Magnesium Troponin I High Sens 54.6 H* D 72.0 H* B-Natriuretic Peptide 1227 H Albumin Random Vancomycin 10/29/24 10/29/24 10/29/24 05:38 05:42 07:05 WBC 16.2 H RBC 2.83 L Hgb 8.7 L Hct 25.0 L MCV 88.3 MCH 30.7 MCHC 34.8 RDW 17.2 H Plt Count 239 MPV 8.5 L Immature Gran % (Auto) Cancelled Neut % (Auto) Cancelled Lymph % (Auto) Cancelled [place] % (Auto) Cancelled Eos % (Auto) Cancelled Baso % (Auto) Cancelled Lymph # (Auto) Cancelled [place] # (Auto) Cancelled Eos # (Auto) Cancelled Baso # (Auto) Cancelled Abs Immat Gran (auto) Cancelled Absolute Neuts (auto) Cancelled Absolute Nucleated RBC 0.050 H Nucleated RBC % (auto) 0.3 H Neutrophils % (Manual) 85 H Band Neutrophils % 11 H Monocytes % (Manual) 2 Eosinophils % (Manual) 1 Metamyelocytes % 1 Abs Neuts (Manual) 15.6 H Monocytes # (Manual) 0.3 Eosinophils # (Manual) 0.2 Metamyelocytes # 0.2 Platelet Estimate NORMAL Plt Morphology Comment NORMAL RBC Morphology NOTED Polychromasia 1+ (0-2) Hypochromasia 1+ (5-14) VBG pH 7.51 H VBG pCO2 29 VBG pO2 46 VBG HCO3 23 VBG O2 Saturation 75.0 VBG Base Excess 1.0 Sodium 139 Potassium 2.7 L* D Chloride 111 H Carbon Dioxide 18 L Anion Gap 13 BUN 14 Creatinine 0.55 Estim Creat Clear Calc 76.9 Estimated GFR > 60 POC Glucose 124 H Random Glucose 110 Lactic Acid Calcium 7.1 L D Phosphorus 2.4 L Magnesium 1.2 L* Troponin I High Sens B-Natriuretic Peptide Albumin 2.4 L Random Vancomycin 20.2 H Microbiology Microbiology Results: Microbiology 10/27/24 07:46 Blood - Venous Blood Culture - Preliminary No growth after 24 hours. 10/27/24 08:01 Blood - Venous Blood Culture - Preliminary No growth after 24 hours. Progress Note: A&P Assessment and plan (1) Atrial fibrillation with rapid ventricular response: Status: Acute (2) Acute hypoxic respiratory failure: Status: Acute (3) Pulmonary edema: Status: Acute Plan Assessment: 68-year-old lady with underlying metastatic breast cancer admitted with pneumonia further complicated by pulmonary edema briefly requiring noninvasive positive pressure ventilatory support, now titrated back down to high-flow nasal cannula. Plan: Neuro: No acute issues. Cardiac: AFib with RVR, resolved, continue rate control with Cardizem and anticoagulation with Xarelto. Pulmonary: Acute hypoxic respiratory failure secondary to combination of underlying lung metastasis from breast cancer, pneumonia, and pulmonary edema. Pulmonary edema component resolved with diuresis. Continue to titrate off supplemental oxygen as tolerated. Renal: No acute issues. Endo: No acute issues. Underlying diabetes mellitus. GI: No acute issues. ID: Suspected community-acquired pneumonia and immunocompromised patient, continue broad-spectrum antibiotics. Heme/Onc: Underlying metastatic breast cancer. Oncology service care appreciated. Psych: No acute issues. Miscellaneous: No acute issues. Prophylaxis: Xarelto Diet: Regular Quality Stroke Does the patient have a stroke diagnosis?: No VTE Prior VTE?: No VTE Risk Level:: Medical - moderate - high VTE Device Contraindication: Treatment Not Indicated VTE Drug Contraindication: N/A - Med Ordered
[2024-10-29] MEDS: Sodium Chloride Tab 1 GM TABLET PO (10:23)
[2024-10-29] MEDS: dilTIAZem HCL CD 240 MG CAP.ER.DEG PO (10:23)
[2024-10-29] MEDS: Mag&Al/Sim/Diphenhyd/Lidocaine 10 ML ORAL.SUSP PO (10:23)
[2024-10-29] MEDS: Furosemide 40 MG/4 ML VIAL IVPUSH (10:53)
[2024-10-29] MEDS: cefEPime HCl/D5W 2 GM/50 ML PIGGYBACK IV ×2 (10:53→20:25)
[2024-10-29 11:10] LABS: Glucose, Whole Blood 119 mg/dL (60-115)
[2024-10-29] MEDS: Potassium Phosphate/NS 15 MMOL/250 ML PLAST..BAG 62.5 MMOL IV (11:43)
[2024-10-29 16:11] LABS: Glucose, Whole Blood 269 mg/dL (60-115)
--- NOTE | 2024-10-29 16:22 | PC.NURSE ---
per provider order, marte cath Dc at 1545, pt due to void at [phone]
[2024-10-29 16:25] LABS: Anion Gap 16 (12-20); Blood Urea Nitrogen 22 mg/dL (9-16); Calcium 8.5 mg/dL (8.4-10.2); Carbon Dioxide 22 mmol/L (22-29); Chloride 98 mmol/L (96-108); Creatinine Clr Calc Pharmacy 58.0; Estimated Glomerular Filt Rate > 60; Potassium 5.5 mmol/L (3.3-5.1); Sodium 130 mmol/L (135-145)
--- NOTE | 2024-10-29 17:09 | P.EN_ITS ---
Event Note Date of Service: 10/29/24 Event Note: Assumed care of this pt earlier in the morning after being downgraded from the ICU. Pt was transferred to the ICU after needing rescue BiPAP for flash pulmonary edema. pt was diuresed in the ICU to good effect and will be brought back to the hospital floor. Discussed care of plan with electric stove installer and agree with current plan. Time Spent With Patient Time: Total time managing care of this patient today ____ minutes.
[2024-10-29 18:35] LABS: Glucose, Whole Blood 287 mg/dL (60-115)
--- NOTE | 2024-10-29 18:48 | PC.NURSE ---
pt was noted to have fever 102.6 rectal. prn tylenol given. O2 sat was noted in 73%. resource program teacher initiated at 1827. provider and RT at bedside. poc 287. O2 sat dropped to the lowest as 52%. pt then placed on Bipap w good respond O2 st 93-96%, BP 109/56 RR 30 HR 60, post vital BP 92/47 HR 60 RR 26 O2 92% on Bipap. CXR ordered and taken. VBG is ordered. Provider at bedside reconsideration about ICU transfer. this RN had hard time in getting O2 reading since pt was transfer to floor this AM, currently finger pulse oxy has been working good.
[2024-10-29 19:07] LABS: ABG HCO3 17 mmol/L (22-26); ABG O2 % Saturation 93.0 %
--- NOTE | 2024-10-29 19:25 | PM.EVENT ---
Event Note Date of Service: 10/29/24 Event Note: Rapid response called at approximately 18:30 as pt went into respiratory distress while on high-flow, desatting as low as 52%. Pt was placed on rescue BiPAP to good effect with O2 sats stable in the 90s. Pt had spiked a fever of 102.6 approximately 10 minutes prior to episode, and was administered Tylenol. Patient's other vitals were stable with BP at 109/56 and HR in the 80s. ABG obtained which showed pH of 7.45 with pCO2 24 and bicarb 17. Pt herself appears clinically stable on BiPAP. She will be evaluated by ICU for possible transfer to the unit. Time Spent With Patient Time: Total time managing care of this patient today ____ minutes.
--- NOTE | 2024-10-29 20:46 | PM.EVENT ---
Event Note Date of Service: 10/29/24 Event Note: 7:27 PM - Contacted by ICU, treatment with Lasix 20 mg IV was recommended and that feels patient does not require BiPAP but okay to stay on it if patient feels comfortable on it. Time Spent With Patient Time: Total time managing care of this patient today ____ minutes.
[2024-10-29 21:02] LABS: Glucose, Whole Blood 200 mg/dL (60-115)
[2024-10-30] VITALS (20 sets, daily range): BP systolic 93–111; BP diastolic 52–60; PULSE 54–63; RESP 16–96; TEMP 36–38.8; O2SAT 86–98; BMI 20.4
[2024-10-30] MEDS: 0.9 % Sodium Chloride Flush 3 ML SYRINGE IVFLUSH ×4 (01:38→22:05)
[2024-10-30 06:24] LABS: Hematocrit 25.4 % (37.0-47.0); Hemoglobin 8.8 g/dl (12.0-16.0); Mean Corpuscular HGB Conc 34.6 g/dl (31.0-35.0); Mean Corpuscular Hemoglobin 30.3 pg (27.0-33.0); Mean Corpuscular Volume 87.6 fL (80.0-98.0); NRBC Abs Auto 0.150 X10*3/uL (0.0-0.012); NRBC Pct Auto 0.8 /100WBC (0.0-0.2); Platelet Count 274 X10*3/uL (160-400); Red Blood Count 2.90 X10*6/uL (4.20-5.50); White Blood Count 18.8 X10*3/uL (4.8-10.8)
[2024-10-30 06:25] LABS: Venous Blood Gas Refer to POC result
[2024-10-30 06:29] LABS: VBG HCO3 28 mmol/L (22-26); VBG O2 % Saturation 52.0 %
[2024-10-30 06:47] LABS: Albumin Level 2.9 g/dL (3.5-5.0); Anion Gap 13 (12-20); Blood Urea Nitrogen 23 mg/dL (9-16); Calcium 8.6 mg/dL (8.4-10.2); Carbon Dioxide 23 mmol/L (22-29); Chloride 101 mmol/L (96-108); Creatinine Clr Calc Pharmacy 64.4; Estimated Glomerular Filt Rate > 60; Magnesium 1.7 mg/dL (1.6-2.6); Potassium 4.1 mmol/L (3.3-5.1); Sodium 133 mmol/L (135-145)
[2024-10-30 07:14] LABS: Band Neutrophils Percent 10 % (3-5); Eosinophils Absolute Manual 0.2 X10*3/uL (0.0-0.4); Eosinophils Percent Manual 1 % (0-4); Lymphocytes Absolute Manual 0.9 X10*3/uL (1.2-4.9); Lymphocytes Percent Manual 5 % (20-40); Monocytes Absolute Manual 0.2 X10*3/uL (0.1-1.2); Monocytes Percent Manual 1 % (2-11); Myelocytes Absolute 0.2 X10*/uL; Myelocytes Percent 1 %; Neutrophils Absolute Manual 17.3 X10*3/uL (2.0-8.3); Neutrophils Percent Manual 82 % (45-73)
[2024-10-30 07:16] LABS: Basophilic Stippling 1+ (0-2) /OIF; Burr Cells 1+ (0-2) /OIF; Dohle Bodies PRESENT; Large Platelet PRESENT; Macrocytosis 1+ (5-14) /OIF; Polychromasia 1+ (0-2) /OIF; RBC Morphology NOTED; Toxic Vacuolation PRESENT
[2024-10-30 07:32] LABS: Glucose, Whole Blood 109 mg/dL (60-115)
--- NOTE | 2024-10-30 09:16 | P.PNHO-ONC_ITS ---
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 Never had screening mammograms. Self palpated small breast lump around March of this year but did not bring this to anybody's attention. This grew in size and she felt some discomfort, mammogram and subsequent ultrasound revealed 2.5 X2.6 cm spiculated mass in the upper outer quadrant with associated lymphadenopathy. Ultrasound revealed left breast mid to posterior depth, upper-outer quadrant mass measuring 2.3 cm. Large left axillary lymph node measuring 2.7 x 2.3 cm. Biopsy of left breast mass at 03:00 o'clock position revealed poorly differentiated invasive carcinoma with ductal features and squamous differentiation. Grade 3. Biopsy of left axillary lymph node (2.7x2.3cm) positive for metastatic carcinoma consistent with breast primary. Estrogen receptor -0%, progesterone receptor -0%, HER2 2+, FISH negative. Proliferation index high 30% by Ki- 67 immunostain. No family history of breast cancer. 4 para 3, 1 child of malnutrition in [facility]. No hormone replacement therapy. Menopause around 49. Clinical stage T2 N1. ER/OK/HER2 negative. Genetic screening showed no deleterious mutation, extended panel testing was performed by [facility]. She started neoadjuvant treatment with pembrolizumab along with weekly carboplatin and Taxol on 12/04/21 as per Ke[facility]- 522 data. Post treatment ultrasound and mammogram of the left breast showed decrease in size of breast mass, measuring 1.3 x 1 cm compared to 2.6 x 2.5 cm. Left axilla ultrasound also showed decrease in size of lymph node now measuring 1.1 x 0.4 cm compared to 1.3 x 0.9 cm. She underwent left breast lumpectomy/lymph node dissection on 06/06/2022, pathology revealed-residual invasive ductal carcinoma with squamous features, MS BR grade 3 negative margins. Tumor size 0.2 cm. Widespread ductal carcinoma in Situ, nuclear grade 2 with necrosis and positive superior margin, very close to multiple other margins. Thirteen lymph nodes negative for metastatic carcinoma. Repeat IHC showed ER/OK and HER2 negative. Pathological stage ypT1a ypN0. DCIS, nuclear grade 2, extensive present in 17 of 21 blocks. She underwent left simple mastectomy on 07/04/2022. Pathology revealed benign tissue without residual tumor. Her left chest wall pacemaker was removed and reinserted in the right abdominal wall so as to facilitate adjuvant radiation therapy to left chest wall. She completed adjuvant pembrolizumab end of 2022. She completed adjuvant radiation therapy in December 2022. CT chest 08/31/2024: Right lung mass measuring 7.9 x 5.8 x 5.2 cm in the right upper lobe. Mediastinal lymphadenopathy with right paratracheal lymph node measuring 1.3 cm and left infrahilar node measuring 1.3 cm. Bronchoscopy and biopsy of left upper lobe mass performed 09/14/2024 revealed squamous cell carcinoma, moderately differentiated. Similar morphologic appearance to her breast cancer histology. ER/OK negative HER2 pending. PD-L1 TPF 3%, CPS 4. She had CT brain with and without contrast on 09/03/2024 which showed 10 mm in enhancing lesion in the right frontal lobe with adjacent vasogenic edema concerning for metastatic disease. She has been started on dexamethasone 2 mg t.i.d.. She was seen by Dr. Brenner from Neurosurgery as well as radiation oncology at [facility]. Surgery for brain radiation will be deferred given the widely metastatic disease from breast primary. Further solitary brain lesion, she was told that she could get stereotactic radiation therapy. Echocardiogram obtained on 09/24/24 revealed no significant change compared to prior study dated: 05/25/2022. Sleeve Wheel Maker Utilized?: No - [place] Speaking Interval History Interval history: Lupe Thomas is a 68 year old female with metastatic breast cancer diagnosed in 09/04/2024 who presented to emergency department with complaints of chills, fever and acute onset shortness of breath. She was undergoing palliative chemotherapy with Doxil, recently completed stereotactic brain radiation therapy at [facility] for solitary brain metastasis. She presented with progressive generalized weakness but sudden onset of chills and shortness of breath. She did not check temperature at home. Her daughter brought her to emergency department were workup revealed fever up to 102 with tachycardia and respiratory distress. She was hypoxic with O2 sats of 77% on room air. She tested negative for COVID, flu and influenza. Chest x-ray showed right upper lobe mass with airspace opacity consistent with pneumonia in the right middle lobe. She was treated with IV fluids, hydrocortisone, diltiazem and broad-spectrum antibiotics with cefepime and vancomycin. She is on oxygen high-flow. CT angiogram was negative for pulmonary embolism. Events of last evening noted. Patient became very hypoxic again also febrile. She required BiPAP. She feels very tired now. No significant sputum production with cough. She had more fever spikes yesterday. Review of Systems - Constitutional Reports as per [facility] Medical History: Medical History (Last Reviewed 10/30/24 @ 13:43 by Reema Her MD) Abnormal ultrasound of breast Colon cancer screening Essential hypertension GERD (gastroesophageal reflux disease) Hypercholesteremia Hyperglycemia Lung mass Lymphadenopathy, mediastinal On beta harley at home Pacemaker Onset Date: ~2008 PAF (paroxysmal atrial fibrillation) Port-A-Cath in place PUD (peptic ulcer disease) Screening for breast cancer Vertigo Family History: Family History (Last Reviewed 10/30/24 @ 13:43 by Reema Her MD) Mother No problems noted. Father No problems noted. Surgical History: Surgical History (Last Reviewed 10/30/24 @ 13:43 by Reema Her MD) History of appendectomy History of cholecystectomy History of left mastectomy Onset Date: 07/04/22 History of lumpectomy of left breast History of lung biopsy History of permanent cardiac pacemaker placement History of tubal ligation Hx of colonoscopy Social History: Social History (Last Reviewed 10/30/24 @ 13:43 by Reema Her MD) Living Situation History: Household Members: Family Housing: House Are you a primary child care attendant to a significant other at home: No Do you presently have visiting nurse or other home services: No Tobacco History: Patient Tobacco Use Status: Never used Tobacco Tobacco use type: Cigarette e-Cigarette/Vaping Use: Never Used Second Hand Smoke Exposure: No Advance Directives: Advance Directives Date on File: 09/08/24 Occupation Assessmet: service: No Current occupational status: retired 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 Diltiazem HCl (Diltiazem Hcl Cd 240 Mg Cap.Er.Deg) 240 mg PO DAILY [facility]; Protocol Last Admin: 10/30/24 09:14 Dose: Not Given Glucose (Glucose Gel 15 Gm Gel..Gram.) 15 gm PO Q15M PRN; Protocol PRN Reason: per Hypoglycemia Standing Ord. Cefepime HCl (Maxipime) 2 gm in 50 mls @ 100 mls/hr IV Q12H [facility] Last Infusion: 10/29/24 20:55 Dose: Infused Vancomycin HCl 500 mg/ Sodium (Chloride) 110 mls @ 110 mls/hr IV Q12H [facility] Last Infusion: 10/30/24 02:37 Dose: Infused Insulin Human Lispro (Insulin Lispro 100 Unit/Ml 3 Ml Vial) 0 unit SUBCUT QIDACHS [facility]; Protocol Last Admin: 10/30/24 08:19 Dose: Not Given Lidocaine/Diphenhydr/Alum/Mg/Simeth (Mag&Al/Sim/Diphenhyd/Lidocaine 10 Ml Oral.Susp) 10 ml PO BID [facility] Last Admin: 10/29/24 23:20 Dose: Not Given Lisinopril (Lisinopril 10 Mg Tablet) 10 mg PO DAILY [facility]; Protocol Last Admin: 10/30/24 09:14 Dose: Not Given Magnesium Hydroxide (Milk Of Magnesia 30 Ml Oral.Susp) 30 ml PO DAILY PRN PRN Reason: Constipation Melatonin (Melatonin 3 Mg Tablet) 6 mg PO BEDTIME PRN PRN Reason: Insomnia Metoprolol Tartrate (Metoprolol Tartrate 50 Mg Tablet) 50 mg PO BID [facility]; Protocol Last Admin: 10/29/24 21:00 Dose: Not Given Morphine Sulfate (Morphine Sulfate 4 Mg/Ml Cartridge) 4 mg IVPUSH Q4H PRN; Protocol PRN Reason: Pain, Severe (Pain Scale 7-10) Last Admin: 10/29/24 12:26 Dose: 4 mg Omeprazole (Omeprazole 40 Mg Capsule.Dr) 40 mg PO DAILY@0630 [facility] Last Admin: 10/29/24 10:23 Dose: 40 mg Ondansetron HCl (Ondansetron Hcl 4 Mg/2 Ml Vial) 4 mg IVPUSH Q8H PRN PRN Reason: Nausea and Vomiting Last Admin: 10/29/24 21:03 Dose: 4 mg Oxycodone HCl (Oxycodone Hcl Immed Release 5 Mg Tablet) 5 mg PO BEDTIME [facility] Last Admin: 10/29/24 21:00 Dose: Not Given Pharmacy Consult (Consult Rx Vancomycin Dosing) 1 each MISCELLANE DAILY PRN PRN Reason: Consult order Pravastatin Sodium (Pravastatin Sodium 40 Mg Tablet) 40 mg PO DAILY [facility] Last Admin: 10/29/24 10:23 Dose: 40 mg Rivaroxaban (Rivaroxaban 20 Mg Tablet) 20 mg PO DAILY [facility] Last Admin: 10/29/24 10:23 Dose: 20 mg Sodium Chloride (0.9 % Sodium Chloride Flush 3 Ml Syringe) 3 ml IVFLUSH QSHIFT [facility] Last Admin: 10/30/24 01:38 Dose: 3 ml Sodium Chloride (Sodium Chloride Tab 1 Gm Tablet) 1 gm PO BID [facility] Last Admin: 10/29/24 21:00 Dose: Not Given Home Medications ?Medication ?Instructions ?Recorded ?Confirmed ?Type dexamethasone 2 mg tablet 2 mg PO BEDTIME 10/21/24 10/27/24 Histor y Magic Mouthwash 10 ml PO BID 10/27/24 10/27/24 History Diphen/Nystat/Antacid 1:1:1 240 mL suspension acetaminophen 325 mg tablet 650 mg PO Q6H PRN Pain 10/27/24 10/27/24 History oxycodone 5 mg tablet 5 mg PO BEDTIME 10/27/24 10/27/24 Histor y Allergies Allergy/AdvReac Type Severity Reaction Status Date / Time latex (LATEX) Allergy Intermediate RASH WITH Verified 10/27/24 07:24 CONTACT Exam Vital signs: Vital Signs Temp 97.8 F 10/30/24 07:37 Pulse 61 10/30/24 09:14 Resp 22 H 10/30/24 07:56 BP 111/59 L 10/30/24 09:14 Pulse Ox 92 10/30/24 07:37 O2 Del Method High Flow Nasal Cannula 10/30/24 07:37 O2 Flow Rate 31 10/30/24 07:37 FiO2 84 10/30/24 07:37 Intake & Output 10/29/24 10/30/24 10/30/24 18:59 06:59 18:59 Intake Total 171 / 1990 280 / 1990 Output Total 2380 / 2880 500 / 2880 Balance -670 / -890 -220 / -890 Urine Output (Average ml/kg/hr) 3.93 0.80 Intake: Intake, Oral Amount 1050 / 1170 120 / 1170 Intake, IV Amount 660 / 820 160 / 820 Magnesium Sulfate/H2O 2 gm In 50 / 50 50 ml @ 25 mls/hr IV ONCE ONE Rx#:[id number] Potassium Chloride/H20 40 meq 200 / 200 In 100 ml @ 50 mls/hr IV Q2H [facility] Rx#:[id number] Potassium Phosphate/NS 15 mmol 250 / 250 In 250 ml @ 62.5 mls/hr IV Q4H [facility] Rx#:[id number] cefEPime HCl/D5W 2 gm In 50 ml 50 / 100 50 / 100 @ 100 mls/hr IV Q12H [facility] Rx#: [id number] vancomycin HCL 500 mg In 0.9 % 110 / 220 110 / 220 Sodium Chloride 100 ml @ 110 mls/hr IV Q12H [facility] Rx#: [id number] Output: Output, Urine Amount 100 / 600 500 / 600 Output, Urine Amount (Catheter) 2280 / 2280 Urethral 2280 / 2280 Other: Breakfast % Eaten 50% Number of Incontinent Voids 1 Urine purewick Bedpan Urine Color Yellow Yellow Last Bowel Movement 10/25/24 10/25/24 Weight 52.3 kg Weight 52.3 kg BMI result Body Mass Index 20.4 - Constitutional Present: no acute distress - Routine HEENT Exam Head: Present: normal inspection - Routine Respiratory Exam Present: CTAB - Routine Cardiovascular Exam Cardiovascular: Present: RRR, S1, S2 - Routine Abdominal Exam Present: soft - Routine Extremities Exam Absent: pedal edema - Routine Skin Exam Present: intact - Routine Neurological Exam Present: alert, oriented X3 Data - Labs CBC & Chem 7: 10/30/24 06:15 10/30/24 06:15 Labs: Laboratory Last Values WBC 18.8 X10*3/uL (4.8-10.8) H 10/30/24 06:15 RBC 2.90 X10*6/uL (4.20-5.50) L 10/30/24 06:15 Hgb 8.8 g/dl (12.0-16.0) L 10/30/24 06:15 Hct 25.4 % (37.0-47.0) L 10/30/24 06:15 MCV 87.6 fL (80.0-98.0) 10/30/24 06:15 MCH 30.3 pg (27.0-33.0) 10/30/24 06:15 MCHC 34.6 g/dl (31.0-35.0) 10/30/24 06:15 RDW 17.6 % (11.0-16.0) H 10/30/24 06:15 Plt Count 274 X10*3/uL (160-400) 10/30/24 06:15 MPV 8.3 fL (9.4-12.3) L 10/30/24 06:15 Immature Gran % (Auto) Cancelled 10/30/24 06:15 Neut % (Auto) Cancelled 10/30/24 06:15 Lymph % (Auto) Cancelled 10/30/24 06:15 [place] % (Auto) Cancelled 10/30/24 06:15 Eos % (Auto) Cancelled 10/30/24 06:15 Baso % (Auto) Cancelled 10/30/24 06:15 Lymph # (Auto) Cancelled 10/30/24 06:15 [place] # (Auto) Cancelled 10/30/24 06:15 Eos # (Auto) Cancelled 10/30/24 06:15 Baso # (Auto) Cancelled 10/30/24 06:15 Abs Immat Gran (auto) Cancelled 10/30/24 06:15 Absolute Neuts (auto) Cancelled 10/30/24 06:15 Absolute Nucleated RBC 0.150 X10*3/uL (0.0-0.012) H 10/30/24 06:15 Nucleated RBC % (auto) 0.8 /100WBC (0.0-0.2) H 10/30/24 06:15 Neutrophils % (Manual) 82 % (45-73) H 10/30/24 06:15 Band Neutrophils % 10 % (3-5) H 10/30/24 06:15 Lymphocytes % (Manual) 5 % (20-40) L 10/30/24 06:15 Atypical Lymphs % (Man) 1 % (0-6) 10/27/24 07:46 Monocytes % (Manual) 1 % (2-11) L 10/30/24 06:15 Eosinophils % (Manual) 1 % (0-4) 10/30/24 06:15 Metamyelocytes % 1 % 10/29/24 05:38 Myelocytes % 1 % 10/30/24 06:15 Abs Neuts (Manual) 17.3 X10*3/uL (2.0-8.3) H 10/30/24 06:15 Lymphocytes # (Manual) 0.9 X10*3/uL (1.2-4.9) L 10/30/24 06:15 Atyp Lymphs # (Manual) 0.2 x10*3/uL 10/27/24 07:46 Monocytes # (Manual) 0.2 X10*3/uL (0.1-1.2) 10/30/24 06:15 Eosinophils # (Manual) 0.2 X10*3/uL (0.0-0.4) 10/30/24 06:15 Metamyelocytes # 0.2 X10*3/uL 10/29/24 05:38 Myelocytes # 0.2 X10*/uL 10/30/24 06:15 Nucleated RBCs 1 /100WBC (0-0) H 10/30/24 06:15 Toxic Vacuolation PRESENT 10/30/24 06:15 Dohle Bodies PRESENT 10/30/24 06:15 Platelet Estimate NORMAL (NORMAL) 10/30/24 06:15 Large Platelets PRESENT 10/30/24 06:15 Plt Morphology Comment NOTED 10/30/24 06:15 RBC Morphology NOTED 10/30/24 06:15 Polychromasia 1+ (0-2) /OIF 10/30/24 06:15 Hypochromasia 1+ (5-14) /OIF 10/29/24 05:38 Basophilic Stippling 1+ (0-2) /OIF 10/30/24 06:15 Macrocytosis 1+ (5-14) /OIF 10/30/24 06:15 Zenon Cells 1+ (0-2) /OIF 10/30/24 06:15 PT 14.4 SEC (10.9-12.4) H D 10/27/24 08:01 INR 1.3 (0.9-1.1) H 10/27/24 08:01 O2 Saturation 93.0 % 10/29/24 19:02 ABG pH at Pt Temp 7.45 (7.35-7.45) 10/29/24 19:02 ABG pCO2 at Pt Temp 24 mmHg (32-45) L 10/29/24 19:02 ABG pO2 at Pt Temp 72 mmHg (83-108) L 10/29/24 19:02 ABG HCO3 17 mmol/L (22-26) L 10/29/24 19:02 ABG Base Excess (Actual) -4.8 mmol/L 10/29/24 19:02 VBG pH 7.42 (7.32-7.43) 10/30/24 06:24 VBG pCO2 43 mmHg 10/30/24 06:24 VBG pO2 36 mmHg 10/30/24 06:24 VBG HCO3 28 mmol/L (22-26) H 10/30/24 06:24 VBG O2 Saturation 52.0 % 10/30/24 06:24 VBG Base Excess 3.9 mmol/L 10/30/24 06:24 Sodium 133 mmol/L (135-145) L 10/30/24 06:15 Potassium 4.1 mmol/L (3.3-5.1) D 10/30/24 06:15 Chloride 101 mmol/L (96-108) 10/30/24 06:15 Carbon Dioxide 23 mmol/L (22-29) 10/30/24 06:15 Anion Gap 13 (12-20) 10/30/24 06:15 BUN 23 mg/dL (9-16) H 10/30/24 06:15 Creatinine 0.67 mg/dL (0.5-1.4) 10/30/24 06:15 Estim Creat Clear Calc 64.4 10/30/24 06:15 Estimated GFR > 60 10/30/24 06:15 POC Glucose 109 mg/dL (60-115) 10/30/24 07:26 Random Glucose 121 mg/dL (60-115) H 10/30/24 06:15 Lactic Acid 1.5 mmol/L (0.5-2.0) 10/28/24 21:06 Calcium 8.6 mg/dL (8.4-10.2) 10/30/24 06:15 Phosphorus 2.5 mg/dL (2.7-4.5) L 10/30/24 06:15 Magnesium 1.7 mg/dL (1.6-2.6) 10/30/24 06:15 Total Bilirubin 0.4 mg/dL (0.0-1.0) 10/27/24 07:46 AST 41 U/L (5-31) H 10/27/24 07:46 ALT 23 U/L (0-31) 10/27/24 07:46 Alkaline Phosphatase 114 U/L (39-117) 10/27/24 07:46 Troponin I High Sens 72.0 ng/L (<3.5-17.0) H* 10/28/24 21:06 B-Natriuretic Peptide 1227 pg/mL (<100) H 10/28/24 18:16 Total Protein 6.2 g/dL (6.5-8.0) L 10/27/24 07:46 Albumin 2.9 g/dL (3.5-5.0) L 10/30/24 06:15 Urine Color Yellow 10/27/24 10:30 Urine Appearance Clear 10/27/24 10:30 Urine pH 7.5 (5.0-9.0) 10/27/24 10:30 Ur Specific [place] 1.015 (1.005-1.025) 10/27/24 10:30 Urine Protein Trace mg/dL (Neg-Trace) 10/27/24 10:30 Urine Glucose (UA) Negative mg/dL (Negative) 10/27/24 10:30 Urine Ketones Negative mg/dL (Negative) 10/27/24 10:30 Urine Blood Negative (Negative) 10/27/24 10:30 Urine Nitrite Negative (Negative) 10/27/24 10:30 Ur Leukocyte Esterase Negative (Negative) 10/27/24 10:30 Random Vancomycin 20.2 mcg/mL (15-20) H 10/29/24 05:38 Influenza Type A (PCR) NEGATIVE (Negative) 10/27/24 07:46 Influenza Type B (PCR) NEGATIVE (Negative) 10/27/24 07:46 RSV RNA Qual (PCR) NEGATIVE (Negative) 10/27/24 07:46 SARS-CoV-2 RNA (RT-PCR) NEGATIVE (Negative) 10/27/24 07:46 - Imaging Radiologist's impression: ITS Impressions Chest X-Ray 10/27/24 06:57 IMPRESSION: 1. Known right upper lobe mass. 2. Airspace opacity in the right middle lobe, consistent with pneumonia. Electronically signed by: Nahum Solano MD 10/27/2024 08:11 AM EDT RP Chest CTA 10/27/24 14:53 IMPRESSION: 1. No evidence of pulmonary emboli. 2. Known 5.4 x 5.9 x 5.2 cm right upper lobe mass. 2. Diffuse confluent bilateral airspace opacities. Differential diagnostic considerations include pulmonary edema, diffuse pneumonia, or hemorrhage. Clinical correlation is recommended. Electronically signed by: Nahum Solano MD 10/27/2024 03:21 PM EDT RP Assessment and Plan Patient Active problem list reviewed?: Yes (1) Invasive ductal carcinoma of left breast Problem details: Status post mastectomy Status: Chronic Assessment and plan: 1. This is a 69-year-old woman with metastatic left breast invasive ductal carcinoma (triple negative), coronary artery disease, atrial fibrillation on anticoagulation, on palliative chemotherapy presenting with acute hypoxic respiratory failure secondary to multifocal pneumonia. CT angiogram performed 10/27/2024 shows no evidence of PE, known 5.9 x 5.4 cm right upper lobe mass and diffuse confluent bilateral airspace opacities. Differential diagnostic considerations included pulmonary edema, diffuse pneumonia or hemorrhage. She is on cefepime and vancomycin. Blood cultures so far are negative. Hypotension and fever have resolved. Leukocytosis probably secondary to steroids and infection. She was developed dilutional anemia, closely monitor. She recently completed stereotactic brain radiation therapy and is on dexamethasone taper. Decrease dexamethasone to 1 mg daily. 2. Oral mucositis secondary to chemotherapy. Continue with magic mouthwash oral rinses and Diflucan. 3. Atrial fibrillation. She is on Xarelto and metoprolol. As recommended by Cardiology, resume diltiazem once blood pressure stabilizes. Recently performed echocardiogram shows normal LV function. She has had recurrent fever and hypotension. She was back on high-flow oxygen. Chest x-ray shows continued patchy bilateral infiltrates. Recommend ID consultation. Rule out PCP pneumonia. Overall prognosis is guarded. - Time Spent With Patient Time Spent with Patient (in minutes): 15 Additional Coding: - Additional E/M codes Complex E/M visit Add On: CPT G2211
[2024-10-30] MEDS: Mag&Al/Sim/Diphenhyd/Lidocaine 10 ML ORAL.SUSP PO ×2 (09:28→22:00)
[2024-10-30] MEDS: Sodium Chloride Tab 1 GM TABLET PO ×2 (09:29→22:00)
[2024-10-30] MEDS: cefEPime HCl/D5W 2 GM/50 ML PIGGYBACK IV (09:29)
--- NOTE | 2024-10-30 10:27 | P.PNCA_ITS ---
Subjective Subjective Date of Service: 10/30/24 Interval history: Seen examined at bedside. On high-flow oxygen. Physical Exam Vital Signs: Last Vital Signs Temp 97.1 F 10/30/24 09:10 Pulse 61 10/30/24 09:14 Resp 18 10/30/24 09:10 BP 111/59 L 10/30/24 09:14 Pulse Ox 93 10/30/24 09:10 O2 Del Method High Flow Nasal Cannula 10/30/24 09:10 O2 Flow Rate 55 10/30/24 09:10 FiO2 80 10/30/24 09:10 BMI result Body Mass Index 20.4 GENERAL APPEARANCE: Ill-appearing, short of breath on high-flow nasal cannula. NECK: no carotid bruit, + jugular venous distention. SKIN: no suspicious lesions, warm and dry. Right chest wall port. HEART: no murmurs, irregular rate and rhythm. LUNGS: clear to auscultation anteriorly. ABDOMEN: soft, nontender. EXTREMITIES: no edema. PERIPHERAL PULSES: equal. Objective Labs and Meds 10/30/24 06:15 10/30/24 06:15 Lab results: Laboratory Results - last 24 hr 10/29/24 10/29/24 10/29/24 11:05 16:03 16:06 WBC RBC Hgb Hct MCV MCH MCHC RDW Plt Count MPV Immature Gran % (Auto) Neut % (Auto) Lymph % (Auto) [place] % (Auto) Eos % (Auto) Baso % (Auto) Lymph # (Auto) [place] # (Auto) Eos # (Auto) Baso # (Auto) Abs Immat Gran (auto) Absolute Neuts (auto) Absolute Nucleated RBC Nucleated RBC % (auto) Neutrophils % (Manual) Band Neutrophils % Lymphocytes % (Manual) Monocytes % (Manual) Eosinophils % (Manual) Myelocytes % Abs Neuts (Manual) Lymphocytes # (Manual) Monocytes # (Manual) Eosinophils # (Manual) Myelocytes # Nucleated RBCs Toxic Vacuolation Dohle Bodies Platelet Estimate Large Platelets Plt Morphology Comment RBC Morphology Polychromasia Basophilic Stippling Macrocytosis [place] Cells O2 Saturation ABG pH at Pt Temp ABG pCO2 at Pt Temp ABG pO2 at Pt Temp ABG HCO3 ABG Base Excess (Actual) VBG pH VBG pCO2 VBG pO2 VBG HCO3 VBG O2 Saturation VBG Base Excess Sodium 130 L Potassium 5.5 H D Chloride 98 Carbon Dioxide 22 Anion Gap 16 BUN 22 H Creatinine 0.73 Estim Creat Clear Calc 58.0 Estimated GFR > 60 POC Glucose 119 H 269 H Random Glucose 287 H Calcium 8.5 D Phosphorus Magnesium Lactate Dehydrogenase Albumin 10/29/24 10/29/24 10/29/24 18:32 19:02 20:56 WBC RBC Hgb Hct MCV MCH MCHC RDW Plt Count MPV Immature Gran % (Auto) Neut % (Auto) Lymph % (Auto) [place] % (Auto) Eos % (Auto) Baso % (Auto) Lymph # (Auto) [place] # (Auto) Eos # (Auto) Baso # (Auto) Abs Immat Gran (auto) Absolute Neuts (auto) Absolute Nucleated RBC Nucleated RBC % (auto) Neutrophils % (Manual) Band Neutrophils % Lymphocytes % (Manual) Monocytes % (Manual) Eosinophils % (Manual) Myelocytes % Abs Neuts (Manual) Lymphocytes # (Manual) Monocytes # (Manual) Eosinophils # (Manual) Myelocytes # Nucleated RBCs Toxic Vacuolation Dohle Bodies Platelet Estimate Large Platelets Plt Morphology Comment RBC Morphology Polychromasia Basophilic Stippling Macrocytosis [place] Cells O2 Saturation 93.0 ABG pH at Pt Temp 7.45 ABG pCO2 at Pt Temp 24 L ABG pO2 at Pt Temp 72 L ABG HCO3 17 L ABG Base Excess (Actual) -4.8 VBG pH VBG pCO2 VBG pO2 VBG HCO3 VBG O2 Saturation VBG Base Excess Sodium Potassium Chloride Carbon Dioxide Anion Gap BUN Creatinine Estim Creat Clear Calc Estimated GFR POC Glucose 287 H 200 H Random Glucose Calcium Phosphorus Magnesium Lactate Dehydrogenase Albumin 10/30/24 10/30/24 10/30/24 06:15 06:24 07:26 WBC 18.8 H RBC 2.90 L Hgb 8.8 L Hct 25.4 L MCV 87.6 MCH 30.3 MCHC 34.6 RDW 17.6 H Plt Count 274 MPV 8.3 L Immature Gran % (Auto) Cancelled Neut % (Auto) Cancelled Lymph % (Auto) Cancelled [place] % (Auto) Cancelled Eos % (Auto) Cancelled Baso % (Auto) Cancelled Lymph # (Auto) Cancelled [place] # (Auto) Cancelled Eos # (Auto) Cancelled Baso # (Auto) Cancelled Abs Immat Gran (auto) Cancelled Absolute Neuts (auto) Cancelled Absolute Nucleated RBC 0.150 H Nucleated RBC % (auto) 0.8 H Neutrophils % (Manual) 82 H Band Neutrophils % 10 H Lymphocytes % (Manual) 5 L Monocytes % (Manual) 1 L Eosinophils % (Manual) 1 Myelocytes % 1 Abs Neuts (Manual) 17.3 H Lymphocytes # (Manual) 0.9 L Monocytes # (Manual) 0.2 Eosinophils # (Manual) 0.2 Myelocytes # 0.2 Nucleated RBCs 1 H Toxic Vacuolation PRESENT Dohle Bodies PRESENT Platelet Estimate NORMAL Large Platelets PRESENT Plt Morphology Comment NOTED RBC Morphology NOTED Polychromasia 1+ (0-2) Basophilic Stippling 1+ (0-2) Macrocytosis 1+ (5-14) [place] Cells 1+ (0-2) O2 Saturation ABG pH at Pt Temp ABG pCO2 at Pt Temp ABG pO2 at Pt Temp ABG HCO3 ABG Base Excess (Actual) VBG pH 7.42 VBG pCO2 43 VBG pO2 36 VBG HCO3 28 H VBG O2 Saturation 52.0 VBG Base Excess 3.9 Sodium 133 L Potassium 4.1 D Chloride 101 Carbon Dioxide 23 Anion Gap 13 BUN 23 H Creatinine 0.67 Estim Creat Clear Calc 64.4 Estimated GFR > 60 POC Glucose 109 Random Glucose 121 H Calcium 8.6 Phosphorus 2.5 L Magnesium 1.7 Lactate Dehydrogenase 647 H Albumin 2.9 L Progress Note: A&P Assessment and plan (1) Persistent atrial fibrillation: Status: Acute (2) Acute CHF: Status: Acute Plan Pleasant 69 year lady with metastatic breast cancer presenting with pneumonia and developing hypoxic respiratory failure due to pulmonary edema. She was diuresed in the intensive care unit and continues to be on high-flow oxygen. By exam she has JVD and I think we should continue IV diuretics. Metastatic disease and overall prognosis is poor. AFib is chronic and is not the cause for heart failure episode. Stop the diltiazem because her blood pressure is low. Thank you for allowing me to participate in the care of your patient. Please feel free to contact me if you have any questions. Time Spent With Patient Time: Total time managing care of this patient today ____ minutes. Progress Note: Quality Stroke Does the patient have a stroke diagnosis?: No Procedures Date of Service Date of Service: 10/30/24
[2024-10-30 11:19] LABS: Glucose, Whole Blood 154 mg/dL (60-115)
--- NOTE | 2024-10-30 11:58 | MHC.CLN ---
F/U PT IS MODERATELY MALNOURISHED SEE FULL ASSESSMENT DATED 10/28/24 PO INTAKE 75% AVERAGE DIET RX: 2000DM -CAN LIBERALIZE TO PROMOTE PO INTAKE AND VARIETY RECEIVING ENSURE BID TO PROVIDE 700KCALS, 40G PROTEIN MONITOR PO INTAKE AND ENCOURAGE SUPPLEMENTS
--- NOTE | 2024-10-30 12:34 | HO.PM.IMPN ---
Subjective Subjective Date of Service: 10/30/24 Interval History: Unable to tolerate BiPAP last night due to nausea; was transitioned again to high-flow Episodes of hypotension overnight; medications withheld Pt also noted to spike fever as high as 102.6 yesterday evening ID consulted, recommend starting Bactrim and testing for Pneumocystis jiroveci Currently pt feeling better Code status changed to DNR/DNI Review of Systems Review of Systems: Yes all other systems are reviewed and are negative Physical Exam Exam: Exam: General: AOx3. High-flow on, able to speak in 2-3 word sentences. Appears ill. Resp: CTA bilaterally CVS: Irregularly irregular rhythm. No murmurs GI: +BS, NT, no distention. Skin: Warm, dry Neuro: Cranial nerves II-XII grossly intact bilaterally. Motor grossly intact bilaterally Extremities: No edema Psych: Appropriate affect Vital Signs: Vital Signs: Last Vital Signs Temp 97.6 F 10/30/24 11:26 Pulse 62 10/30/24 11:26 Resp 18 10/30/24 11:26 BP 94/53 L 10/30/24 11:26 Pulse Ox 91 L 10/30/24 11:26 O2 Del Method High Flow Nasal C annula 10/30/24 11:26 O2 Flow Rate 55 10/30/24 11:26 FiO2 80 10/30/24 11:26 BMI result Body Mass Index 20.4 Objective Data Active Medications Acetaminophen (Acetaminophen 325 Mg Tablet) 650 mg PO Q6H PRN PRN Reason: Pain, Mild 1-3,fever,headache Last Admin: 10/29/24 18:20 Dose: 650 mg Documented By: PHI Calcium Carbonate (Calcium Carbonate 750 Mg Tab.Chew) 750 mg PO Q4H PRN PRN Reason: Heartburn Dexamethasone (Dexamethasone 0.5 Mg Tablet) 1 mg PO DAILY [facility] Last Admin: 10/30/24 09:28 Dose: 1 mg Documented By: CRISTINA Dextrose (Dextrose 50 % 25 Gm/50 Ml Syringe) 25 gm IVPUSH Q15M PRN; Protocol PRN Reason: per Hypoglycemia Standing Ord. Diltiazem HCl (Diltiazem Hcl Cd 240 Mg Cap.Er.Deg) 240 mg PO DAILY [facility]; Protocol Last Admin: 10/30/24 09:14 Dose: Not Given Documented By: CRISTINA Non-Admin Reason: Physician Held Med Glucose (Glucose Gel 15 Gm Gel..Gram.) 15 gm PO Q15M PRN; Protocol PRN Reason: per Hypoglycemia Standing Ord. Cefepime HCl (Maxipime) 2 gm in 50 mls @ 100 mls/hr IV Q12H [facility] Last Infusion: 10/30/24 09:59 Dose: Infused Documented By: CRISTINA Vancomycin HCl 500 mg/ Sodium (Chloride) 110 mls @ 110 mls/hr IV Q12H [facility] Last Infusion: 10/30/24 02:37 Dose: Infused Documented By: BERNARDA Insulin Human Lispro (Insulin Lispro 100 Unit/Ml 3 Ml Vial) 0 unit SUBCUT QIDACHS [facility]; Protocol Last Admin: 10/30/24 12:11 Dose: 2 unit Documented By: CRISTINA Lidocaine/Diphenhydr/Alum/Mg/Simeth (Mag&Al/Sim/Diphenhyd/Lidocaine 10 Ml Oral.Susp) 10 ml PO BID [facility] Last Admin: 10/30/24 09:28 Dose: 10 ml Documented By: CRISTINA Lisinopril (Lisinopril 10 Mg Tablet) 10 mg PO DAILY [facility]; Protocol Last Admin: 10/30/24 09:14 Dose: Not Given Documented By: CRISTINA Non-Admin Reason: Physician Held Med Magnesium Hydroxide (Milk Of Magnesia 30 Ml Oral.Susp) 30 ml PO DAILY PRN PRN Reason: Constipation Melatonin (Melatonin 3 Mg Tablet) 6 mg PO BEDTIME PRN PRN Reason: Insomnia Metoprolol Tartrate (Metoprolol Tartrate 50 Mg Tablet) 50 mg PO BID [facility]; Protocol Last Admin: 10/30/24 09:29 Dose: 50 mg Documented By: CRISTINA Morphine Sulfate (Morphine Sulfate 4 Mg/Ml Cartridge) 4 mg IVPUSH Q4H PRN; Protocol PRN Reason: Pain, Severe (Pain Scale 7-10) Last Admin: 10/29/24 12:26 Dose: 4 mg Documented By: PHI Omeprazole (Omeprazole 40 Mg Capsule.) 40 mg PO DAILY@0630 [facility] Last Admin: 10/30/24 09:28 Dose: 40 mg Documented By: CRISTINA Ondansetron HCl (Ondansetron Hcl 4 Mg/2 Ml Vial) 4 mg IVPUSH Q8H PRN PRN Reason: Nausea and Vomiting Last Admin: 10/29/24 21:03 Dose: 4 mg Documented By: BERNARDA Oxycodone HCl (Oxycodone Hcl Immed Release 5 Mg Tablet) 5 mg PO BEDTIME [facility] Last Admin: 10/29/24 21:00 Dose: Not Given Documented By: BERNARDA Non-Admin Reason: hypotensive and nausea Pharmacy Consult (Consult Rx Vancomycin Dosing) 1 each MISCELLANE DAILY PRN PRN Reason: Consult order Pravastatin Sodium (Pravastatin Sodium 40 Mg Tablet) 40 mg PO DAILY [facility] Last Admin: 10/30/24 09:28 Dose: 40 mg Documented By: CRISTINA Rivaroxaban (Rivaroxaban 20 Mg Tablet) 20 mg PO DAILY [facility] Last Admin: 10/30/24 09:29 Dose: 20 mg Documented By: CRISTINA Sodium Chloride (0.9 % Sodium Chloride Flush 3 Ml Syringe) 3 ml IVFLUSH QSHIFT [facility] Last Admin: 10/30/24 09:29 Dose: 3 ml Documented By: CRISTINA Sodium Chloride (Sodium Chloride Tab 1 Gm Tablet) 1 gm PO BID [facility] Last Admin: 10/30/24 09:29 Dose: 1 gm Documented By: CRISTINA Labs 10/30/24 06:15 10/30/24 06:15 Labs: Laboratory Results - last 24 hr 10/29/24 10/29/24 10/29/24 16:03 16:06 18:32 MCV MCH MCHC RDW Plt Count MPV Immature Gran % (Auto) Neut % (Auto) Lymph % (Auto) [place] % (Auto) Eos % (Auto) Baso % (Auto) Lymph # (Auto) [place] # (Auto) Eos # (Auto) Baso # (Auto) Abs Immat Gran (auto) Absolute Neuts (auto) Absolute Nucleated RBC Nucleated RBC % (auto) Neutrophils % (Manual) Band Neutrophils % Lymphocytes % (Manual) Monocytes % (Manual) Eosinophils % (Manual) Myelocytes % Abs Neuts (Manual) Lymphocytes # (Manual) Monocytes # (Manual) Eosinophils # (Manual) Myelocytes # Nucleated RBCs Toxic Vacuolation Dohle Bodies Platelet Estimate Large Platelets Plt Morphology Comment RBC Morphology Polychromasia Basophilic Stippling Macrocytosis [place] Cells O2 Saturation ABG pH at Pt Temp ABG pCO2 at Pt Temp ABG pO2 at Pt Temp ABG HCO3 ABG Base Excess (Actual) VBG pH VBG pCO2 VBG pO2 VBG HCO3 VBG O2 Saturation VBG Base Excess Anion Gap 16 Estim Creat Clear Calc 58.0 Estimated GFR > 60 POC Glucose 269 H 287 H Random Glucose 287 H Calcium 8.5 D Phosphorus Magnesium Lactate Dehydrogenase Albumin 10/29/24 10/29/24 10/30/24 19:02 20:56 06:15 MCV 87.6 MCH 30.3 MCHC 34.6 RDW 17.6 H Plt Count 274 MPV 8.3 L Immature Gran % (Auto) Cancelled Neut % (Auto) Cancelled Lymph % (Auto) Cancelled [place] % (Auto) Cancelled Eos % (Auto) Cancelled Baso % (Auto) Cancelled Lymph # (Auto) Cancelled [place] # (Auto) Cancelled Eos # (Auto) Cancelled Baso # (Auto) Cancelled Abs Immat Gran (auto) Cancelled Absolute Neuts (auto) Cancelled Absolute Nucleated RBC 0.150 H Nucleated RBC % (auto) 0.8 H Neutrophils % (Manual) 82 H Band Neutrophils % 10 H Lymphocytes % (Manual) 5 L Monocytes % (Manual) 1 L Eosinophils % (Manual) 1 Myelocytes % 1 Abs Neuts (Manual) 17.3 H Lymphocytes # (Manual) 0.9 L Monocytes # (Manual) 0.2 Eosinophils # (Manual) 0.2 Myelocytes # 0.2 Nucleated RBCs 1 H Toxic Vacuolation PRESENT Dohle Bodies PRESENT Platelet Estimate NORMAL Large Platelets PRESENT Plt Morphology Comment NOTED RBC Morphology NOTED Polychromasia 1+ (0-2) Basophilic Stippling 1+ (0-2) Macrocytosis 1+ (5-14) [place] Cells 1+ (0-2) O2 Saturation 93.0 ABG pH at Pt Temp 7.45 ABG pCO2 at Pt Temp 24 L ABG pO2 at Pt Temp 72 L ABG HCO3 17 L ABG Base Excess (Actual) -4.8 VBG pH VBG pCO2 VBG pO2 VBG HCO3 VBG O2 Saturation VBG Base Excess Anion Gap 13 Estim Creat Clear Calc 64.4 Estimated GFR > 60 POC Glucose 200 H Random Glucose 121 H Calcium 8.6 Phosphorus 2.5 L Magnesium 1.7 Lactate Dehydrogenase 647 H Albumin 2.9 L 10/30/24 10/30/24 10/30/24 06:24 07:26 11:13 MCV MCH MCHC RDW Plt Count MPV Immature Gran % (Auto) Neut % (Auto) Lymph % (Auto) [place] % (Auto) Eos % (Auto) Baso % (Auto) Lymph # (Auto) [place] # (Auto) Eos # (Auto) Baso # (Auto) Abs Immat Gran (auto) Absolute Neuts (auto) Absolute Nucleated RBC Nucleated RBC % (auto) Neutrophils % (Manual) Band Neutrophils % Lymphocytes % (Manual) Monocytes % (Manual) Eosinophils % (Manual) Myelocytes % Abs Neuts (Manual) Lymphocytes # (Manual) Monocytes # (Manual) Eosinophils # (Manual) Myelocytes # Nucleated RBCs Toxic Vacuolation Dohle Bodies Platelet Estimate Large Platelets Plt Morphology Comment RBC Morphology Polychromasia Basophilic Stippling Macrocytosis [place] Cells O2 Saturation ABG pH at Pt Temp ABG pCO2 at Pt Temp ABG pO2 at Pt Temp ABG HCO3 ABG Base Excess (Actual) VBG pH 7.42 VBG pCO2 43 VBG pO2 36 VBG HCO3 28 H VBG O2 Saturation 52.0 VBG Base Excess 3.9 Anion Gap Estim Creat Clear Calc Estimated GFR POC Glucose 109 154 H Random Glucose Calcium Phosphorus Magnesium Lactate Dehydrogenase Albumin Microbiology Microbiology Results: Microbiology 10/27/24 07:46 Blood Culture - Preliminary Blood - Venous No growth after 48 hours. 10/27/24 08:01 Blood Culture - Preliminary Blood - Venous No growth after 48 hours. Assessment and Plan (1) Pneumonia: Status: Acute (2) Acute hypoxic respiratory failure: Status: Acute Plan Pt is a 68-year-old female with a PMH significant for stage IV breast cancer with mets to the brain on chemoradiation therapy follows with Dr. Mcgill, persistent AFib on Xarelto, [id number] type 2 diabetes,?HTN, HLD, and GERD who presents to the ED with?shaking chills, headache, cough, and SOB upon awakening from sleep at 04:00 this morning. Pt is admitted to the hospital for treatment and further evaluation of acute hypoxic respiratory failure in the setting of pneumonia with sepsis in an immunocompromised pt. Acute hypoxic respiratory failure in the setting of pneumonia with sepsis in an immunocompromised pt Pt with rigors, SOB, cough, CXR showing right middle lobe opacity consistent with pneumonia, initialy desatting into the 70s on RA CTA negative for PE, but showing diffuse confluent bilateral airspace opacities concerning for pulmonary edema vs diffuse pneumonia vs hemorrhage Met sepsis criteria with fever, tachycardia, tachypnea, leukocytosis; lactic acid likely falsely elevated due to rigors Initially treated with vancomycin and cefepime x3 days; will switch cefepime to azithromycin and check MRSA nasal swab to continue on vanc Was transferred to ICU on 10/28 on BiPAP due to flash pulmonary edema, treated with Lasix IV and transferred back to hospital floor on 10/29 Has repeat episode of respiratory distress on evening of 10/29 requiring rescue BiPAP though stayed on the hospital floor Pt currently on high-flow, wean as tolerated Monitor respiratory status Fevers Has continued to spike fevers up to 102.6 despite being on vanc and cefepime ID consulted, will start Bactrim for possible pneumocystis jiroveci pmeumonia We will check sputum culture, Pneumocystis jiroveci PCR Pulmonary edema Lasix 40mg IV daily Cardiology following Persistent AFib with RVR Initially presented with HR in 130s-140s Given diltiazem 15 mg IV in the ED to good effect Can continue diltiazem 240 mg daily once BP improves, per Cardiology Continue Xarelto, metoprolol Acute lactic acidosis, resolved Initial lactic acid 8.1 with repeat normalized At 1.7 secondary to rigors, not severe sepsis Oral mucositis Secondary to chemotherapy Continue Magic Mouthwash Received Fluconazole 50 mg daily x3 days Anemia of chronic disease Repeat CBC showed hgb drop from 10.0-->8.0; has since been stable around 8.8 Likely delusional from IVF Monitor CBC Hx of breast cancer with metastasis to brain Pt given stress dose of hydrocortisone in the ED Reduce dexamethasone to 1mg daily Oncology consult Chronic hyponatremia Stable, around baseline Continue sodium tablets HTN BP has been soft, hold lisinopril Jsd-sjuiosb-euhhlbdnj type [address] on sliding scale insulin, diabetic diet HLD Continue statin GERD Continue PPI DNR/DNI DVT Prophylaxis: On Xarelto Quality Stroke Does the patient have a stroke diagnosis?: No VTE Prior VTE?: No VTE Risk Level:: Medical - moderate - high VTE Device Contraindication: Treatment Not Indicated VTE Drug Contraindication: N/A - Med Ordered
--- NOTE | 2024-10-30 13:24 | HE.PHANOTE ---
RE: VANCO DOSING Trough came back as 17.2 mg/L which is therapeutic but that was after dose was held for 8 hours and reduced to 500 mg q12h. Dose is held for 6 hours then continue at 500 mg q12h @199910/30/24. Trough is scheduled for 10/31/24 @1800.
--- NOTE | 2024-10-30 13:41 | P.CNID_ITS ---
History of Present Illness Data of Consult Service Date: 10/30/24 Requesting physician: London Godoy Primary Care Provider: Maurilio Carias MD [facility] Reason for consult: shortness of breath She presents with shortnss of breath for two days and chills. She has multifocal haziness lungs Temperature 101.8 She has metastatic breast cancer/brain radiation Review of Systems 2 Review of Systems: Yes all other systems are reviewed and are negative PMFSH Past Medical History Medical History Lymphadenopathy, mediastinal Lung mass Colon cancer screening Hyperglycemia Port-A-Cath in place On beta harley at home Abnormal ultrasound of breast Screening for breast cancer PUD (peptic ulcer disease) Essential hypertension PAF (paroxysmal atrial fibrillation) Vertigo Pacemaker (~2008) GERD (gastroesophageal reflux disease) Hypercholesteremia Family History Family History Mother No problems noted. Father No problems noted. Surgical History Surgical History History of lung biopsy Hx of colonoscopy History of left mastectomy (07/04/22) History of lumpectomy of left breast History of appendectomy History of permanent cardiac pacemaker placement History of cholecystectomy History of tubal ligation Social History Social History Household Members: Family Housing: House Are you a primary child day care teacher to a significant other at home: No Do you presently have visiting nurse or other home services: No Alcohol intake: never Patient Tobacco Use Status: Never used Tobacco Tobacco use type: Cigarette e-Cigarette/Vaping Use: Never Used Second Hand Smoke Exposure: No Advance Directives Date on File: 09/08/24 service: No Current occupational status: retired 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 Cognitive needs: No Hearing needs: No Vision needs: Yes Meds Allergies Allergy/AdvReac Type Severity Reaction Status Date / Time latex (LATEX) Allergy Intermediate RASH WITH Verified 10/27/24 07:24 CONTACT Active Medications: Current Medications Acetaminophen (Acetaminophen 325 Mg Tablet) 650 mg PO Q6H PRN PRN Reason: Pain, Mild 1-3,fever,headache Last Admin: 10/30/24 13:33 Dose: 650 mg Calcium Carbonate (Calcium Carbonate 750 Mg Tab.Chew) 750 mg PO Q4H PRN PRN Reason: Heartburn Dexamethasone (Dexamethasone 0.5 Mg Tablet) 1 mg PO DAILY [facility] Last Admin: 10/30/24 09:28 Dose: 1 mg Dextrose (Dextrose 50 % 25 Gm/50 Ml Syringe) 25 gm IVPUSH Q15M PRN; Protocol PRN Reason: per Hypoglycemia Standing Ord. Diltiazem HCl (Diltiazem Hcl Cd 240 Mg Cap.Er.Deg) 240 mg PO DAILY [facility]; Protocol Last Admin: 10/30/24 09:14 Dose: Not Given Glucose (Glucose Gel 15 Gm Gel..Gram.) 15 gm PO Q15M PRN; Protocol PRN Reason: per Hypoglycemia Standing Ord. Cefepime HCl (Maxipime) 2 gm in 50 mls @ 100 mls/hr IV Q12H [facility] Last Infusion: 10/30/24 09:59 Dose: Infused Vancomycin HCl 500 mg/ Sodium (Chloride) 110 mls @ 110 mls/hr IV Q12H [facility] Insulin Human Lispro (Insulin Lispro 100 Unit/Ml 3 Ml Vial) 0 unit SUBCUT QIDACHS [facility]; Protocol Last Admin: 10/30/24 12:11 Dose: 2 unit Lidocaine/Diphenhydr/Alum/Mg/Simeth (Mag&Al/Sim/Diphenhyd/Lidocaine 10 Ml Oral.Susp) 10 ml PO BID [facility] Last Admin: 10/30/24 09:28 Dose: 10 ml Lisinopril (Lisinopril 10 Mg Tablet) 10 mg PO DAILY [facility]; Protocol Last Admin: 10/30/24 09:14 Dose: Not Given Magnesium Hydroxide (Milk Of Magnesia 30 Ml Oral.Susp) 30 ml PO DAILY PRN PRN Reason: Constipation Melatonin (Melatonin 3 Mg Tablet) 6 mg PO BEDTIME PRN PRN Reason: Insomnia Metoprolol Tartrate (Metoprolol Tartrate 50 Mg Tablet) 50 mg PO BID [facility]; Protocol Last Admin: 10/30/24 09:29 Dose: 50 mg Morphine Sulfate (Morphine Sulfate 4 Mg/Ml Cartridge) 4 mg IVPUSH Q4H PRN; Protocol PRN Reason: Pain, Severe (Pain Scale 7-10) Last Admin: 10/29/24 12:26 Dose: 4 mg Omeprazole (Omeprazole 40 Mg Capsule.Dr) 40 mg PO DAILY@0630 [facility] Last Admin: 10/30/24 09:28 Dose: 40 mg Ondansetron HCl (Ondansetron Hcl 4 Mg/2 Ml Vial) 4 mg IVPUSH Q8H PRN PRN Reason: Nausea and Vomiting Last Admin: 10/29/24 21:03 Dose: 4 mg Oxycodone HCl (Oxycodone Hcl Immed Release 5 Mg Tablet) 5 mg PO BEDTIME [facility] Last Admin: 10/29/24 21:00 Dose: Not Given Pharmacy Consult (Consult Rx Vancomycin Dosing) 1 each MISCELLANE DAILY PRN PRN Reason: Consult order Pravastatin Sodium (Pravastatin Sodium 40 Mg Tablet) 40 mg PO DAILY [facility] Last Admin: 10/30/24 09:28 Dose: 40 mg Rivaroxaban (Rivaroxaban 20 Mg Tablet) 20 mg PO DAILY [facility] Last Admin: 10/30/24 09:29 Dose: 20 mg Sodium Chloride (0.9 % Sodium Chloride Flush 3 Ml Syringe) 3 ml IVFLUSH QSHIFT [facility] Last Admin: 10/30/24 09:29 Dose: 3 ml Sodium Chloride (Sodium Chloride Tab 1 Gm Tablet) 1 gm PO BID [facility] Last Admin: 10/30/24 09:29 Dose: 1 gm Home Medications ?Medication ?Instructions ?Recorded ?Confirmed ?Last Taken ?Type dexamethasone 2 mg tablet 2 mg PO BEDTIME 10/21/2403/1110/26/24 History Magic Mouthwash 10 ml PO BID 10/27/2410/26/24 History Diphen/Nystat/Antacid 1:1:1 240 mL suspension acetaminophen 325 mg tablet 650 mg PO Q6H PRN Pain 03/1110/27/24 Unknown History oxycodone 5 mg tablet 5 mg PO BEDTIME 10/27/2403/1110/26/24 History Physical Exam 2 Vital Signs: Vital Signs: Last Vital Signs Temp 101.8 F H 10/30/24 13:32 Pulse 63 10/30/24 13:32 Resp 19 10/30/24 13:32 BP 94/53 L 10/30/24 11:26 Pulse Ox 93 10/30/24 13:32 O2 Del Method High Flow Nasal C annula 10/30/24 13:32 O2 Flow Rate 55 10/30/24 13:32 FiO2 70 10/30/24 13:32 BMI result Body Mass Index 20.4 Const: General: cooperative HEENT: Head: Yes normal to inspection Face and sinus: Yes normal facial exam Mouth: Normal oral and palatal mucosa present Teeth and gingiva: d entition normal Eyes: General: appearance normal, both eyes and all related structures P upils: Equal, round and reactive pupils present Resp: Other: nonrebreather,comfortable Effort & Inspection: normal respiratory effort Cardio: Rate: regular rate Rhythm: regular rhythm GI: Palpation (GI): Soft to palpation and nontender : General: Yes no CVA tenderness Back/Spine/Pelvis: Back: no CVA tenderness Skin: General skin exam: no rashes or lesions noted Neuro: General: moves all extremities Cranial nerves: Yes Equal, round and reactive pupils present Extrem: General: Yes normal to inspection Psych: Appearance: grossly normal Results Labs 10/30/24 06:15 10/30/24 06:15 Labs: Short CBC 10/30/24 Range/Units 06:15 WBC 18.8 H (4.8-10.8) X10*3/uL Hgb 8.8 L (12.0-16.0) g/dl Hct 25.4 L (37.0-47.0) % Plt Count 274 (160-400) X10*3/uL BMP 10/29/24 10/30/24 16:03 06:15 Sodium 130 L 133 L Potassium 5.5 H D 4.1 D Chloride 98 101 Carbon Dioxide 22 23 BUN 22 H 23 H Creatinine 0.73 0.67 Calcium 8.5 D 8.6 Liver Function 10/30/24 Range/Units 06:15 Albumin 2.9 L (3.5-5.0) g/dL Microbiology Microbiology Results: Microbiology 10/27/24 07:46 Blood - Venous Blood Culture - Preliminary No growth after 48 hours. 10/27/24 08:01 Blood - Venous Blood Culture - Preliminary No growth after 48 hours. Assessment and Plan (1) Sepsis: Qualifiers: Acute respiratory failure type: with hypoxia Sepsis acute organ dysfunction status: with acute organ dysfunction Sepsis type: sepsis due to unspecified organism Severe sepsis acute organ dysfunction type: acute respiratory failure Severe sepsis shock status: without septic shock Qualified Code(s): A41.9 - Sepsis, unspecified organism; R65.20 - Severe sepsis without septic shock; J96.01 - Acute respiratory failure with hypoxia Status: Acute Plan Likely pneumonia,possible atypical Can check nares MRSA. Check PJP PCR. Bactrim 15-20 mgkg/day in four divided doses and azithromycin or Levaquin and stop Cefepime May give Vancomycin if PCR positive for MRSA nares
[2024-10-30 15:18] LABS: MRSA Nasal PCR NEGATIVE (Negative); SA Nasal PCR NEGATIVE (Negative)
--- NOTE | 2024-10-30 15:27 | MHC.CM.PN ---
EMR REVIEWED, PT W/PNA AND SEPSIS, PT ON HI FLOW O2, ANTIC PT MAY NEED P.T. EVAL FOR DISPO, CM WILL CONT TO FOLLOW DC NEEDS.
[2024-10-30 15:41] LABS: Glucose, Whole Blood 115 mg/dL (60-115)
[2024-10-30] MEDS: Sodium Chloride 3 % Inhalation 4 ML VIAL.NEB INHALE (15:50)
[2024-10-30] MEDS: TRIMETHOPRIM IV ×2 (16:25→22:11)
[2024-10-30] MEDS: DEXTROSE 5% IV ×2 (16:25→22:11)
[2024-10-30] MEDS: SULFAMETHOXAZOLE IV ×2 (16:25→22:11)
[2024-10-30 20:55] LABS: Glucose, Whole Blood 254 mg/dL (60-115)
[2024-10-30] MEDS: oxyCODONE HCl Immed Release 5 MG TABLET PO (22:00)
[2024-10-31] VITALS (16 sets, daily range): BP systolic 91–139; BP diastolic 48–70; PULSE 60–107; RESP 10–24; TEMP 36.3–36.9; O2SAT 87–98; BMI 21.0
[2024-10-31] MEDS: SULFAMETHOXAZOLE IV ×3 (06:10→23:47)
[2024-10-31] MEDS: DEXTROSE 5% IV ×3 (06:10→23:47)
[2024-10-31] MEDS: TRIMETHOPRIM IV ×3 (06:10→23:47)
[2024-10-31 07:53] LABS: Glucose, Whole Blood 176 mg/dL (60-115)
[2024-10-31] MEDS: Mag&Al/Sim/Diphenhyd/Lidocaine 10 ML ORAL.SUSP PO ×2 (07:54→20:01)
[2024-10-31] MEDS: 0.9 % Sodium Chloride Flush 3 ML SYRINGE IVFLUSH ×3 (08:03→23:48)
[2024-10-31] MEDS: Sodium Chloride Tab 1 GM TABLET PO ×2 (08:04→19:59)
[2024-10-31] MEDS: Albumin Human 25 % 100 ML IV ×2 (08:10→13:47)
[2024-10-31 12:01] LABS: Glucose, Whole Blood 123 mg/dL (60-115)
--- NOTE | 2024-10-31 12:44 | PM.PNCARD ---
Subjective Subjective Date of Service: 10/31/24 Interval history: Seen and examined at bedside. Continues to be on high-flow oxygen. Breathing somewhat better compared to yesterday. Physical Exam Vital Signs: Last Vital Signs Temp 98.1 F 10/31/24 11:14 Pulse 86 10/31/24 11:14 Resp 22 H 10/31/24 11:31 BP 112/58 L 10/31/24 11:14 Pulse Ox 87 L 10/31/24 11:14 O2 Del Method High Flow Nasal Cannula 10/31/24 11:14 O2 Flow Rate 55 10/31/24 11:14 FiO2 70 10/31/24 11:14 Oxygen Flow Rate 55 10/31/24 07:00 BMI result Body Mass Index 21.0 GENERAL APPEARANCE: Ill-appearing, short of breath on high-flow nasal cannula. NECK: no carotid bruit, No jugular venous distention. SKIN: no suspicious lesions, warm and dry. Right chest wall port. HEART: no murmurs, irregular rate and rhythm. LUNGS: clear to auscultation anteriorly. ABDOMEN: soft, nontender. EXTREMITIES: no edema. PERIPHERAL PULSES: equal. Objective Labs and Meds 10/30/24 06:15 10/30/24 06:15 Lab results: Laboratory Results - last 24 hr 10/30/24 10/30/24 10/30/24 13:41 15:33 20:35 POC Glucose 115 254 H Nasal Screen MRSA (PCR) NEGATIVE Nasal S. aureus Screen NEGATIVE Nasal MRSA/S.aureus Interp SEE NOTE 10/31/24 10/31/24 07:49 11:55 POC Glucose 176 H 123 H Nasal Screen MRSA (PCR) Nasal S. aureus Screen Nasal MRSA/S.aureus Interp Progress Note: A&P Assessment and plan (1) Persistent atrial fibrillation: Status: Acute (2) Acute CHF: Status: Acute Plan Pleasant 69 year lady with metastatic breast cancer presenting with pneumonia and developing hypoxic respiratory failure due to pulmonary edema. She was diuresed in the intensive care unit and continues to be on high-flow oxygen. volume status improved. P.o. Lasix. Metastatic disease and overall prognosis is poor. AFib is chronic and is not the cause for heart failure episode. Stop the diltiazem because her blood pressure is low. Thank you for allowing me to participate in the care of your patient. Please feel free to contact me if you have any questions. Time Spent With Patient Time: Total time managing care of this patient today ____ minutes. Progress Note: Quality Stroke Does the patient have a stroke diagnosis?: No Procedures Date of Service Date of Service: 10/31/24
--- NOTE | 2024-10-31 13:44 | P.CDIM_ITS ---
PROVIDER RESPONSE TEXT: To clarify, the appropriate diagnosis supported by the clinical indicators: Hypomagnesemia: Resolved QUERY TEXT: PHYSICIAN'S DOCUMENTATION REQUEST Date of Query: 10/30/2024 07:29 AM EDT Patient Name: Lupe Thomas Admit Date: 10/27/2024 Dear London SNOWDEN, A review of the medical record indicates additional documentation may be needed. Please review below and update the documentation accordingly. Clinical Indicators: LABS: Magnesium 1.2 L IV Magnesium Sulfate Based on the above, could you clarify if there is a diagnosis that correlates with these findings? Hypomagnesemia resolved, possible, probable, suspected etc Labs indicate a diagnosis of (please specify) Other (explain) Clinically unable to determine (explain) Thank you, Cinthya Kaplan, CCS, CDIS Use of terms such as suspected, likely, concern for, or probable (associated with a specific diagnosis that is being evaluated, monitored, or treated as if it exists) are acceptable and can be coded in the inpatient setting, when documented at the time of discharge. Please use your independent medical judgment in providing your response. THIS QUERY IS PART OF THE PERMANENT MEDICAL RECORD
--- NOTE | 2024-10-31 13:44 | P.CDIM_ITS ---
PROVIDER RESPONSE TEXT: To clarify, the appropriate diagnosis supported by the clinical indicators: Hyponatremia: Chronic QUERY TEXT: PHYSICIAN'S DOCUMENTATION REQUEST Date of Query: 10/30/2024 07:31 AM EDT Patient Name: Lupe Thomas Admit Date: 10/27/2024 Dear London SNOWDEN, A review of the medical record indicates additional documentation may be needed. Please review below and update the documentation accordingly. Clinical Indicators: LABS: Sodium 130 L IV fluids Based on the above, could you clarify if there is a diagnosis that correlates with these findings? Hyponatremia resolved, possible, probable, etc. Labs indicate a diagnosis of (please specify) Other (explain) Clinically unable to determine (explain) Thank you, Cinthya Kaplan, CCS, CDIS Use of terms such as suspected, likely, concern for, or probable (associated with a specific diagnosis that is being evaluated, monitored, or treated as if it exists) are acceptable and can be coded in the inpatient setting, when documented at the time of discharge. Please use your independent medical judgment in providing your response. THIS QUERY IS PART OF THE PERMANENT MEDICAL RECORD
--- NOTE | 2024-10-31 13:44 | P.CDIM_ITS ---
PROVIDER RESPONSE TEXT: To clarify, the appropriate diagnosis supported by the clinical indicators: Malnutrition: Moderate, secondary to reduced p.o. intake in the setting of metastatic cancer and chemotherapy QUERY TEXT: PHYSICIAN'S DOCUMENTATION REQUEST Date of Query: 10/29/2024 12:30 PM EDT Patient Name: Lupe Thomas Admit Date: 10/27/2024 Dear London SNOWDEN, A review of the medical record indicates additional documentation may be needed. Please review below and update the documentation accordingly. Clinical Indicators: Height: 5ft 3in Weight: 19.7 kg BMI: 19.7 Other Clinical Notes Supporting Significance of the BMI: Clinical nutrition note moderately malnourished. Mild depletion of subcutaneous fat and muscle mass. 14% weight loss. Recommend added Ensure. If possible, please provide an associated diagnosis related to the abnormal BMI, such as: Malnutrition mild, moderate, severe Cachexia Anorexia Other (explain) Clinically unable to determine (explain) Thank you, Cinthya Kaplan, CCS, CDIS Use of terms such as suspected, likely, concern for, or probable (associated with a specific diagnosis that is being evaluated, monitored, or treated as if it exists) are acceptable and can be coded in the inpatient setting, when documented at the time of discharge. Please use your independent medical judgment in providing your response. THIS QUERY IS PART OF THE PERMANENT MEDICAL RECORD
[2024-10-31 16:42] LABS: Glucose, Whole Blood 202 mg/dL (60-115)
--- NOTE | 2024-10-31 16:50 | P.PNIM_ITS ---
Subjective Subjective Date of Service: 10/31/24 Interval History: BP noted to be soft overnight as low as 91/54; will give albumin Complains of slight headache Otherwise feels like her breathing is improving Some nausea, but has been able to eat some food No vomiting or abdominal pain Still on high-flow Review of Systems Review of Systems: Yes all other systems are reviewed and are negative Physical Exam 2 Exam: Exam: General: AOx3, high-flow on, able to speak in full sentences. Appears better than yesterday Resp: CTA bilaterally CVS: Irregularly irregular rhythm. No murmurs GI: Soft, NT, no distention Skin: Warm, dry Neuro: Cranial nerves II-XII grossly intact bilaterally. Motor grossly intact bilaterally Extremities: No edema Psych: Appropriate affect Vital Signs: Vital Signs: Last Vital Signs Temp 98.5 F 10/31/24 16:00 Pulse 92 10/31/24 16:00 Resp 18 10/31/24 16:00 BP 115/59 L 10/31/24 16:00 Pulse Ox 95 10/31/24 16:00 O2 Del Method High Flow Nasal C annula 10/31/24 16:00 O2 Flow Rate 55 10/31/24 16:00 FiO2 70 10/31/24 16:00 Oxygen Flow Rate 55 10/31/24 07:00 BMI result Body Mass Index 21.0 Objective Data Active Medications Acetaminophen (Acetaminophen 325 Mg Tablet) 650 mg PO Q6H PRN PRN Reason: Pain, Mild 1-3,fever,headache Last Admin: 10/31/24 07:54 Dose: 650 mg Documented By: CRISTINA Calcium Carbonate (Calcium Carbonate 750 Mg Tab.Chew) 750 mg PO Q4H PRN PRN Reason: Heartburn Dexamethasone (Dexamethasone 0.5 Mg Tablet) 1 mg PO DAILY [facility] Last Admin: 10/31/24 07:54 Dose: 1 mg Documented By: CRISTINA Dextrose (Dextrose 50 % 25 Gm/50 Ml Syringe) 25 gm IVPUSH Q15M PRN; Protocol PRN Reason: per Hypoglycemia Standing Ord. Diltiazem HCl (Diltiazem Hcl Cd 240 Mg Cap.Er.Deg) 240 mg PO DAILY [facility]; Protocol On Hold: 10/30/24 14:15 Last Admin: 10/30/24 09:14 Dose: Not Given Documented By: CRISTINA Non-Admin Reason: Physician Held Med Furosemide (Furosemide 40 Mg/4 Ml Vial) 40 mg IVPUSH DAILY [facility]; Protocol On Hold: 10/31/24 07:38 Last Admin: 10/30/24 16:12 Dose: Not Given Documented By: CRISTINA Non-Admin Reason: low bp Glucose (Glucose Gel 15 Gm Gel..Gram.) 15 gm PO Q15M PRN; Protocol PRN Reason: per Hypoglycemia Standing Ord. Trimethoprim/Sulfamethoxazole (240 mg/ Dextrose) 515 mls @ 225 mls/hr IV Q8H [facility] Last Admin: 10/31/24 15:32 Dose: 225 mls/hr Documented By: CRISTINA Levofloxacin (Levaquin) 750 mg in 150 mls @ 100 mls/hr IV Q24H [facility] Last Infusion: 10/31/24 09:40 Dose: Infused Documented By: CRISTINA Insulin Human Lispro (Insulin Lispro 100 Unit/Ml 3 Ml Vial) 0 unit SUBCUT QIDACHS [facility]; Protocol Last Admin: 10/31/24 16:44 Dose: 2 unit Documented By: CRISTINA Lidocaine/Diphenhydr/Alum/Mg/Simeth (Mag&Al/Sim/Diphenhyd/Lidocaine 10 Ml Oral.Susp) 10 ml PO BID [facility] Last Admin: 10/31/24 07:54 Dose: 10 ml Documented By: CRISTINA Lisinopril (Lisinopril 10 Mg Tablet) 10 mg PO DAILY [facility]; Protocol On Hold: 10/30/24 14:22 Last Admin: 10/30/24 09:14 Dose: Not Given Documented By: CRISTINA Non-Admin Reason: Physician Held Med Magnesium Hydroxide (Milk Of Magnesia 30 Ml Oral.Susp) 30 ml PO DAILY PRN PRN Reason: Constipation Melatonin (Melatonin 3 Mg Tablet) 6 mg PO BEDTIME PRN PRN Reason: Insomnia Metoprolol Tartrate (Metoprolol Tartrate 50 Mg Tablet) 50 mg PO BID [facility]; Protocol Last Admin: 10/31/24 10:44 Dose: Not Given Documented By: CRISTINA Non-Admin Reason: Physician Held Med Morphine Sulfate (Morphine Sulfate 4 Mg/Ml Cartridge) 4 mg IVPUSH Q4H PRN; Protocol PRN Reason: Pain, Severe (Pain Scale 7-10) Last Admin: 10/31/24 13:46 Dose: 4 mg Documented By: CRISTINA Omeprazole (Omeprazole 40 Mg Capsule.) 40 mg PO DAILY@0630 [facility] Last Admin: 10/31/24 06:13 Dose: 40 mg Documented By: JACQUES Ondansetron HCl (Ondansetron Hcl 4 Mg/2 Ml Vial) 4 mg IVPUSH Q8H PRN PRN Reason: Nausea and Vomiting Last Admin: 10/31/24 10:50 Dose: 4 mg Documented By: CRISTINA Oxycodone HCl (Oxycodone Hcl Immed Release 5 Mg Tablet) 5 mg PO BEDTIME [facility] Last Admin: 10/30/24 22:00 Dose: 5 mg Documented By: JACQUES Pravastatin Sodium (Pravastatin Sodium 40 Mg Tablet) 40 mg PO DAILY [facility] Last Admin: 10/31/24 07:54 Dose: 40 mg Documented By: CRISTINA Prochlorperazine Edisylate (Prochlorperazine Edisylate 10 Mg/2 Ml Vial) 5 mg IVPUSH Q6H PRN PRN Reason: Nausea Rivaroxaban (Rivaroxaban 20 Mg Tablet) 20 mg PO DAILY [facility] Last Admin: 10/31/24 07:53 Dose: 20 mg Documented By: CRISTINA Sodium Chloride (0.9 % Sodium Chloride Flush 3 Ml Syringe) 3 ml IVFLUSH QSHIFT [facility] Last Admin: 10/31/24 15:33 Dose: 3 ml Documented By: CRISTINA Sodium Chloride (Sodium Chloride Tab 1 Gm Tablet) 1 gm PO BID [facility] Last Admin: 10/31/24 08:04 Dose: 1 gm Documented By: CRISTINA Labs 10/30/24 06:15 10/30/24 06:15 Labs: Laboratory Results - last 24 hr 10/30/24 10/31/24 10/31/24 20:35 07:49 11:55 POC Glucose 254 H 176 H 123 H 10/31/24 16:37 POC Glucose 202 H Microbiology Microbiology Results: Microbiology 10/31/24 Unknown Gram Stain - Final Sputum - Expectorated Sputum Culture - Final Assessment and Plan (1) Acute hypoxic respiratory failure: Status: Acute (2) Pneumonia: Status: Acute Plan Pt is a 68-year-old female with a PMH significant for stage IV breast cancer with mets to the brain on chemoradiation therapy follows with Dr. Mcgill, persistent AFib on Xarelto, [id number] type 2 diabetes,?HTN, HLD, and GERD who presents to the ED with?shaking chills, headache, cough, and SOB upon awakening from sleep at 04:00 this morning. Pt is admitted to the hospital for treatment and further evaluation of acute hypoxic respiratory failure in the setting of pneumonia with sepsis in an immunocompromised pt. Acute hypoxic respiratory failure in the setting of pneumonia with sepsis in an immunocompromised pt; concern for PJP Pt with rigors, SOB, cough, CXR showing right middle lobe opacity consistent with pneumonia, initialy desatting into the 70s on RA CTA negative for PE, but showing diffuse confluent bilateral airspace opacities concerning for pulmonary edema vs diffuse pneumonia vs hemorrhage Met sepsis criteria with fever, tachycardia, tachypnea, leukocytosis; lactic acid likely falsely elevated due to rigors Was transferred to ICU on 10/28 on BiPAP due to flash pulmonary edema, treated with Lasix IV and transferred back to hospital floor on 10/29 Has repeat episode of respiratory distress on evening of 10/29 requiring rescue BiPAP though stayed on the hospital floor Initially treated with vancomycin and cefepime x3 days; vanc stopped as MRSA swab negative Will treat with levofloxacin and bactrin 15mg/kg in 3 divided doses for possible pneumocystis pneumonia, per ID recommendations Pt currently on high-flow, wean as tolerated Infectious disease following Monitor respiratory status Fevers Has continued to spike fevers up to 102.6 despite being on vanc and cefepime ID consulted, will start Bactrim for possible pneumocystis jiroveci pmeumonia Will check sputum culture, Pneumocystis jiroveci PCR; initial sample contaminated Hypotension Pt noted to be hypotensive this morning Diltiazem discontinued, will treat with albumin Continue Lasix p.o. and metoprolol as BP allows Monitor BP closely Pulmonary edema Initially treated with Lasix 40mg IV daily; switch to Cardiology following Persistent AFib with RVR Initially presented with HR in 130s-140s Given diltiazem 15 mg IV and again on the floor on 10/29 for tachycardia Diltiazem stopped Continue Xarelto, metoprolol Acute lactic acidosis, resolved Initial lactic acid 8.1 with repeat normalized At 1.7 secondary to rigors, not severe sepsis Oral mucositis Secondary to chemotherapy Continue Magic Mouthwash Received Fluconazole 50 mg daily x3 days Anemia of chronic disease Repeat CBC showed hgb drop from 10.0-->8.0; has since been stable around 8.8 Likely delusional from IVF Monitor CBC Hx of breast cancer with metastasis to brain Pt given stress dose of hydrocortisone in the ED Reduce dexamethasone to 1mg daily Oncology consult Chronic hyponatremia Stable, around baseline Continue sodium tablets HTN BP has been soft, hold lisinopril [id number] type [address] on sliding scale insulin, diabetic diet HLD Continue statin GERD Continue PPI DNR/DNI DVT Prophylaxis: On Xarelto Quality Stroke Does the patient have a stroke diagnosis?: No VTE Prior VTE?: No VTE Risk Level:: Medical - moderate - high VTE Device Contraindication: Treatment Not Indicated VTE Drug Contraindication: N/A - Med Ordered
[2024-10-31] MEDS: oxyCODONE HCl Immed Release 5 MG TABLET PO (20:00)
[2024-10-31 20:47] LABS: Glucose, Whole Blood 118 mg/dL (60-115)
[2024-11-01] VITALS (15 sets, daily range): BP systolic 93–145; BP diastolic 51–67; PULSE 70–114; RESP 16–26; TEMP 35.8–36.7; O2SAT 88–99; BMI 20.5
[2024-11-01 07:38] LABS: Glucose, Whole Blood 72 mg/dL (60-115)
[2024-11-01] MEDS: DEXTROSE 5% IV ×3 (08:13→23:37)
[2024-11-01] MEDS: TRIMETHOPRIM IV ×3 (08:13→23:37)
[2024-11-01] MEDS: Mag&Al/Sim/Diphenhyd/Lidocaine 10 ML ORAL.SUSP PO ×2 (08:13→20:23)
[2024-11-01] MEDS: SULFAMETHOXAZOLE IV ×3 (08:13→23:37)
[2024-11-01] MEDS: Sodium Chloride Tab 1 GM TABLET PO ×2 (08:14→20:22)
[2024-11-01] MEDS: 0.9 % Sodium Chloride Flush 3 ML SYRINGE IVFLUSH ×2 (08:14→15:35)
[2024-11-01 11:54] LABS: Glucose, Whole Blood 180 mg/dL (60-115)
[2024-11-01 16:10] LABS: Glucose, Whole Blood 153 mg/dL (60-115)
--- NOTE | 2024-11-01 17:14 | HO.PM.IMPN ---
Subjective Subjective Date of Service: 11/01/24 Interval History: Feels tired, not sleeping well Throat still sore, limited po intake SOB improved No acute events overnight Review of Systems Review of Systems: Yes all other systems are reviewed and are negative Physical Exam Exam: Exam: General: AOx3, high-flow on, able to speak in full sentences. Appears tired Resp: CTA bilaterally CVS: Irregularly irregular rhythm. No murmurs GI: Soft, NT, no distention Skin: Warm, dry Neuro: Cranial nerves II-XII grossly intact bilaterally. Motor grossly intact bilaterally Extremities: No edema Psych: Appropriate affect Vital Signs: Vital Signs: Last Vital Signs Temp 98.0 F 11/01/24 15:16 Pulse 81 11/01/24 15:16 Resp 26 H 11/01/24 15:37 BP 93/53 L 11/01/24 15:16 Pulse Ox 96 11/01/24 15:16 O2 Del Method High Flow Nasal C annula 11/01/24 15:16 O2 Flow Rate 71 11/01/24 15:16 FiO2 55 11/01/24 15:16 Oxygen Flow Rate 55 11/01/24 07:43 BMI result Body Mass Index 20.5 Objective Data Active Medications Acetaminophen (Acetaminophen 325 Mg Tablet) 650 mg PO Q6H PRN PRN Reason: Pain, Mild 1-3,fever,headache Last Admin: 11/01/24 15:36 Dose: 650 mg Documented By: CRISTINA Calcium Carbonate (Calcium Carbonate 750 Mg Tab.Chew) 750 mg PO Q4H PRN PRN Reason: Heartburn Dexamethasone (Dexamethasone 0.5 Mg Tablet) 1 mg PO DAILY [facility] Last Admin: 11/01/24 08:14 Dose: 1 mg Documented By: CRISTINA Dextrose (Dextrose 50 % 25 Gm/50 Ml Syringe) 25 gm IVPUSH Q15M PRN; Protocol PRN Reason: per Hypoglycemia Standing Ord. Diltiazem HCl (Diltiazem Hcl Cd 240 Mg Cap.Er.Deg) 240 mg PO DAILY [facility]; Protocol On Hold: 10/30/24 14:15 Last Admin: 10/30/24 09:14 Dose: Not Given Documented By: CRISTINA Non-Admin Reason: Physician Held Med Furosemide (Furosemide 40 Mg Tablet) 40 mg PO DAILY [facility]; Protocol Stop: 11/03/24 08:59 Last Admin: 11/01/24 08:14 Dose: 40 mg Documented By: CRISTINA Glucose (Glucose Gel 15 Gm Gel..Gram.) 15 gm PO Q15M PRN; Protocol PRN Reason: per Hypoglycemia Standing Ord. Trimethoprim/Sulfamethoxazole (240 mg/ Dextrose) 515 mls @ 225 mls/hr IV Q8H [facility] Last Admin: 11/01/24 15:35 Dose: 225 mls/hr Documented By: CRISTINA Levofloxacin (Levaquin) 750 mg in 150 mls @ 100 mls/hr IV Q24H [facility] Last Infusion: 11/01/24 09:43 Dose: Infused Documented By: CRISTINA Insulin Human Lispro (Insulin Lispro 100 Unit/Ml 3 Ml Vial) 0 unit SUBCUT QIDACHS [facility]; Protocol Last Admin: 11/01/24 16:51 Dose: 2 unit Documented By: CRISTINA Lidocaine/Diphenhydr/Alum/Mg/Simeth (Mag&Al/Sim/Diphenhyd/Lidocaine 10 Ml Oral.Susp) 10 ml PO BID [facility] Last Admin: 11/01/24 08:13 Dose: 10 ml Documented By: CRISTINA Lisinopril (Lisinopril 10 Mg Tablet) 10 mg PO DAILY [facility]; Protocol On Hold: 10/30/24 14:22 Last Admin: 10/30/24 09:14 Dose: Not Given Documented By: CRISTINA Non-Admin Reason: Physician Held Med Magnesium Hydroxide (Milk Of Magnesia 30 Ml Oral.Susp) 30 ml PO DAILY PRN PRN Reason: Constipation Melatonin (Melatonin 3 Mg Tablet) 6 mg PO BEDTIME PRN PRN Reason: Insomnia Metoprolol Tartrate (Metoprolol Tartrate 50 Mg Tablet) 50 mg PO BID [facility]; Protocol Last Admin: 11/01/24 08:14 Dose: 50 mg Documented By: CRISTINA Morphine Sulfate (Morphine Sulfate 4 Mg/Ml Cartridge) 4 mg IVPUSH Q4H PRN; Protocol PRN Reason: Pain, Severe (Pain Scale 7-10) Last Admin: 11/01/24 09:57 Dose: 4 mg Documented By: CRISTINA Omeprazole (Omeprazole 40 Mg Capsule.) 40 mg PO DAILY@0630 [facility] Last Admin: 11/01/24 06:42 Dose: 40 mg Documented By: YAN Oxycodone HCl (Oxycodone Hcl Immed Release 5 Mg Tablet) 5 mg PO BEDTIME [facility] Last Admin: 10/31/24 20:00 Dose: 5 mg Documented By: YAN Pravastatin Sodium (Pravastatin Sodium 40 Mg Tablet) 40 mg PO DAILY [facility] Last Admin: 11/01/24 08:14 Dose: 40 mg Documented By: CRISTINA Prochlorperazine Edisylate (Prochlorperazine Edisylate 10 Mg/2 Ml Vial) 5 mg IVPUSH Q6H PRN PRN Reason: Nausea Last Admin: 11/01/24 11:58 Dose: 5 mg Documented By: CRISTINA Prochlorperazine Edisylate (Prochlorperazine Edisylate 10 Mg/2 Ml Vial) 5 mg IVPUSH Q6H PRN PRN Reason: Nausea Rivaroxaban (Rivaroxaban 20 Mg Tablet) 20 mg PO DAILY [facility] Last Admin: 11/01/24 08:15 Dose: 20 mg Documented By: CRISTINA Sodium Chloride (0.9 % Sodium Chloride Flush 3 Ml Syringe) 3 ml IVFLUSH QSHIFT [facility] Last Admin: 11/01/24 15:35 Dose: 3 ml Documented By: CRISTINA Sodium Chloride (Sodium Chloride Tab 1 Gm Tablet) 1 gm PO BID [facility] Last Admin: 11/01/24 08:14 Dose: 1 gm Documented By: CRISTINA Labs 10/30/24 06:15 10/30/24 06:15 Labs: Laboratory Results - last 24 hr 10/31/24 11/01/24 11/01/24 20:42 07:33 11:39 POC Glucose 118 H 72 180 H 11/01/24 16:06 POC Glucose 153 H Microbiology Microbiology Results: Microbiology 10/27/24 07:46 Blood Culture - Final Blood - Venous No growth after 5 days. 10/27/24 08:01 Blood Culture - Final Blood - Venous No growth after 5 days. Assessment and Plan (1) Acute hypoxic respiratory failure: Status: Acute (2) Pneumonia: Status: Acute Plan Pt is a 68-year-old female with a PMH significant for stage IV breast cancer with mets to the brain on chemoradiation therapy follows with Dr. Mcgill, persistent AFib on Xarelto, [id number] type 2 diabetes,?HTN, HLD, and GERD who presents to the ED with?shaking chills, headache, cough, and SOB upon awakening from sleep at 04:00 this morning. Pt is admitted to the hospital for treatment and further evaluation of acute hypoxic respiratory failure in the setting of pneumonia with sepsis in an immunocompromised pt. Acute hypoxic respiratory failure in the setting of pneumonia with sepsis in an immunocompromised pt; concern for PJP Pt with rigors, SOB, cough, CXR showing right middle lobe opacity consistent with pneumonia, initialy desatting into the 70s on RA CTA negative for PE, but showing diffuse confluent bilateral airspace opacities concerning for pulmonary edema vs diffuse pneumonia vs hemorrhage Met sepsis criteria with fever, tachycardia, tachypnea, leukocytosis; lactic acid likely falsely elevated due to rigors Was transferred to ICU on 10/28 on BiPAP due to flash pulmonary edema, treated with Lasix IV and transferred back to hospital floor on 10/29 Has repeat episode of respiratory distress on evening of 10/29 requiring rescue BiPAP though stayed on the hospital floor Initially treated with vancomycin and cefepime x3 days; vanc stopped as MRSA swab negative Will treat with levofloxacin and bactrin 15mg/kg in 3 divided doses for possible pneumocystis pneumonia, per ID recommendations Pt currently on high-flow, wean as tolerated Infectious disease following Monitor respiratory status Fevers Has continued to spike fevers up to 102.6 despite being on vanc and cefepime ID consulted, will start Bactrim for possible pneumocystis jiroveci pmeumonia Will check sputum culture, Pneumocystis jiroveci PCR; initial sample contaminated Hypotension Pt noted to be hypotensive this morning Diltiazem discontinued, will treat with albumin Continue Lasix p.o. and metoprolol as BP allows Monitor BP closely Pulmonary edema Initially treated with Lasix 40mg IV daily; switch to Cardiology following Persistent AFib with RVR Initially presented with HR in 130s-140s Given diltiazem 15 mg IV and again on the floor on 10/29 for tachycardia Diltiazem stopped Continue Xarelto, metoprolol Acute lactic acidosis, resolved Initial lactic acid 8.1 with repeat normalized At 1.7 secondary to rigors, not severe sepsis Oral mucositis Secondary to chemotherapy Continue Magic Mouthwash Received Fluconazole 50 mg daily x3 days Anemia of chronic disease Repeat CBC showed hgb drop from 10.0-->8.0; has since been stable around 8.8 Likely delusional from IVF Monitor CBC Hx of breast cancer with metastasis to brain Pt given stress dose of hydrocortisone in the ED Reduce dexamethasone to 1mg daily Oncology consult Chronic hyponatremia Stable, around baseline Continue sodium tablets HTN BP has been soft, hold lisinopril Ghs-jvukgmj-sztwrromb type [address] on sliding scale insulin, diabetic diet HLD Continue statin GERD Continue PPI DNR/DNI DVT Prophylaxis: On Xarelto Quality Stroke Does the patient have a stroke diagnosis?: No VTE Prior VTE?: No VTE Risk Level:: Medical - moderate - high VTE Device Contraindication: Treatment Not Indicated VTE Drug Contraindication: N/A - Med Ordered
[2024-11-01] MEDS: oxyCODONE HCl Immed Release 5 MG TABLET PO (20:21)
[2024-11-01 21:09] LABS: Glucose, Whole Blood 96 mg/dL (60-115)
[2024-11-02] VITALS (14 sets, daily range): BP systolic 90–126; BP diastolic 46–65; PULSE 61–95; RESP 16–24; TEMP 35.4–36.8; O2SAT 92–100
[2024-11-02 08:43] LABS: Glucose, Whole Blood 104 mg/dL (60-115)
[2024-11-02] MEDS: Milk of Magnesia 30 ML ORAL.SUSP PO (08:47)
[2024-11-02] MEDS: DEXTROSE 5% IV ×3 (08:47→23:52)
[2024-11-02] MEDS: SULFAMETHOXAZOLE IV ×3 (08:47→23:52)
[2024-11-02] MEDS: Sodium Chloride Tab 1 GM TABLET PO (08:47)
[2024-11-02] MEDS: Mag&Al/Sim/Diphenhyd/Lidocaine 10 ML ORAL.SUSP PO (08:47)
[2024-11-02] MEDS: TRIMETHOPRIM IV ×3 (08:47→23:52)
[2024-11-02] MEDS: 0.9 % Sodium Chloride Flush 3 ML SYRINGE IVFLUSH ×2 (08:48→13:53)
--- NOTE | 2024-11-02 11:44 | MHC.CLN ---
F/U PO INTAKE VARIABLE RANGING FROM 25-100% DIET RX: 2000DM -CAN LIBERALIZE TO PROMOTE PO INTAKE AND VARIETY RECEIVING ENSURE BID TO PROVIDE 700KCALS, 40G PROTEIN MONITOR PO INTAKE AND ENCOURAGE SUPPLEMENTS
[2024-11-02 11:48] LABS: Glucose, Whole Blood 267 mg/dL (60-115)
--- NOTE | 2024-11-02 12:04 | PM.HEMONCPN ---
Medical Summary - Medical Summary Date of Service: 11/02/24 Chief complaint: Feels tired Primary Care Provider: Maurilio Carias MD Medical Summary: Diagnosis: Left breast infiltrating ductal carcinoma 10/2021/triple negative breast cancer. Never had screening mammograms. Self palpated small breast lump around March of this year but did not bring this to anybody's attention. This grew in size and she felt some discomfort, mammogram and subsequent ultrasound revealed 2.5 X2.6 cm spiculated mass in the upper outer quadrant with associated lymphadenopathy. Ultrasound revealed left breast mid to posterior depth, upper-outer quadrant mass measuring 2.3 cm. Large left axillary lymph node measuring 2.7 x 2.3 cm. Biopsy of left breast mass at 03:00 o'clock position revealed poorly differentiated invasive carcinoma with ductal features and squamous differentiation. Grade 3. Biopsy of left axillary lymph node (2.7x2.3cm) positive for metastatic carcinoma consistent with breast primary. Estrogen receptor -0%, progesterone receptor -0%, HER2 2+, FISH negative. Proliferation index high 30% by Ki- 67 immunostain. No family history of breast cancer. 4 para 3, 1 child of malnutrition in [facility]. No hormone replacement therapy. Menopause around 49. Clinical stage T2 N1. ER/NE/HER2 negative. Genetic screening showed no deleterious mutation, extended panel testing was performed by [facility]. She started neoadjuvant treatment with pembrolizumab along with weekly carboplatin and Taxol on 12/04/21 as per Ke[facility]- 522 data. Post treatment ultrasound and mammogram of the left breast showed decrease in size of breast mass, measuring 1.3 x 1 cm compared to 2.6 x 2.5 cm. Left axilla ultrasound also showed decrease in size of lymph node now measuring 1.1 x 0.4 cm compared to 1.3 x 0.9 cm. She underwent left breast lumpectomy/lymph node dissection on 06/06/2022, pathology revealed-residual invasive ductal carcinoma with squamous features, MS BR grade 3 negative margins. Tumor size 0.2 cm. Widespread ductal carcinoma in Situ, nuclear grade 2 with necrosis and positive superior margin, very close to multiple other margins. Thirteen lymph nodes negative for metastatic carcinoma. Repeat IHC showed ER/NE and HER2 negative. Pathological stage ypT1a ypN0. DCIS, nuclear grade 2, extensive present in 17 of 21 blocks. She underwent left simple mastectomy on 07/04/2022. Pathology revealed benign tissue without residual tumor. Her left chest wall pacemaker was removed and reinserted in the right abdominal wall so as to facilitate adjuvant radiation therapy to left chest wall. She completed adjuvant pembrolizumab end of 2022. She completed adjuvant radiation therapy in December 2022. CT chest 08/31/2024: Right lung mass measuring 7.9 x 5.8 x 5.2 cm in the right upper lobe. Mediastinal lymphadenopathy with right paratracheal lymph node measuring 1.3 cm and left infrahilar node measuring 1.3 cm. Bronchoscopy and biopsy of left upper lobe mass performed 09/14/2024 revealed squamous cell carcinoma, moderately differentiated. Similar morphologic appearance to her breast cancer histology. ER/NE negative HER2 pending. PD-L1 TPF 3%, CPS 4. She had CT brain with and without contrast on 09/03/2024 which showed 10 mm in enhancing lesion in the right frontal lobe with adjacent vasogenic edema concerning for metastatic disease. She has been started on dexamethasone 2 mg t.i.d.. She was seen by Dr. Brenner from Neurosurgery as well as radiation oncology at [facility]. Surgery for brain radiation will be deferred given the widely metastatic disease from breast primary. Further solitary brain lesion, she was told that she could get stereotactic radiation therapy. Echocardiogram obtained on 09/24/24 revealed no significant change compared to prior study dated: 05/25/2022. [employer] Utilized?: No - Thai Speaking Interval History Interval history: Lupe Thomas is a 68 year old female with metastatic breast cancer diagnosed in 09/04/2024 who presented to emergency department with complaints of chills, fever and acute onset shortness of breath. She was undergoing palliative chemotherapy with Doxil, recently completed stereotactic brain radiation therapy at [facility] for solitary brain metastasis. She presented with progressive generalized weakness but sudden onset of chills and shortness of breath. She did not check temperature at home. Her daughter brought her to emergency department were workup revealed fever up to 102 with tachycardia and respiratory distress. She was hypoxic with O2 sats of 77% on room air. She tested negative for COVID, flu and influenza. Chest x-ray showed right upper lobe mass with airspace opacity consistent with pneumonia in the right middle lobe. She was treated with IV fluids, hydrocortisone, diltiazem and broad-spectrum antibiotics with cefepime and vancomycin. She is on oxygen high-flow. CT angiogram was negative for pulmonary embolism. She continues to feel tired, requiring high-flow oxygen. [facility] Medical History: Medical History (Last Reviewed 10/30/24 @ 13:43 by Reema Her MD) Abnormal ultrasound of breast Colon cancer screening Essential hypertension GERD (gastroesophageal reflux disease) Hypercholesteremia Hyperglycemia Lung mass Lymphadenopathy, mediastinal On beta harley at home Pacemaker Onset Date: ~2008 PAF (paroxysmal atrial fibrillation) Port-A-Cath in place PUD (peptic ulcer disease) Screening for breast cancer Vertigo Family History: Family History (Last Reviewed 10/30/24 @ 13:43 by Reema Her MD) Mother No problems noted. Father No problems noted. Surgical History: Surgical History (Last Reviewed 10/30/24 @ 13:43 by Reema Her MD) History of appendectomy History of cholecystectomy History of left mastectomy Onset Date: 07/04/22 History of lumpectomy of left breast History of lung biopsy History of permanent cardiac pacemaker placement History of tubal ligation Hx of colonoscopy Social History: Social History (Last Reviewed 10/30/24 @ 13:43 by Reema Her MD) Living Situation History: Household Members: Family Housing: House Are you a primary caretaker to a significant other at home: No Do you presently have visiting nurse or other home services: No Tobacco History: Patient Tobacco Use Status: Never used Tobacco Tobacco use type: Cigarette e-Cigarette/Vaping Use: Never Used Second Hand Smoke Exposure: No Advance Directives: Advance Directives Date on File: 09/08/24 Occupation Assessmet: service: No Current occupational status: retired 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 Furosemide (Furosemide 20 Mg Tablet) 20 mg PO DAILY [facility]; Protocol Stop: 11/04/24 10:00 Glucose (Glucose Gel 15 Gm Gel..Gram.) 15 gm PO Q15M PRN; Protocol PRN Reason: per Hypoglycemia Standing Ord. Trimethoprim/Sulfamethoxazole (240 mg/ Dextrose) 515 mls @ 225 mls/hr IV Q8H [facility] Last Infusion: 11/02/24 11:05 Dose: Infused Levofloxacin (Levaquin) 750 mg in 150 mls @ 100 mls/hr IV Q24H [facility] Last Infusion: 11/02/24 10:33 Dose: Infused Insulin Human Lispro (Insulin Lispro 100 Unit/Ml 3 Ml Vial) 0 unit SUBCUT QIDACHS [facility]; Protocol Last Admin: 11/02/24 11:58 Dose: 6 unit Lidocaine/Diphenhydr/Alum/Mg/Simeth (Mag&Al/Sim/Diphenhyd/Lidocaine 10 Ml Oral.Susp) 10 ml PO BID [facility] Last Admin: 11/02/24 08:47 Dose: 10 ml Lisinopril (Lisinopril 10 Mg Tablet) 10 mg PO DAILY [facility]; Protocol On Hold: 10/30/24 14:22 Last Admin: 10/30/24 09:14 Dose: Not Given Magnesium Hydroxide (Milk Of Magnesia 30 Ml Oral.Susp) 30 ml PO DAILY PRN PRN Reason: Constipation Last Admin: 11/02/24 08:47 Dose: 30 ml Melatonin (Melatonin 3 Mg Tablet) 6 mg PO BEDTIME PRN PRN Reason: Insomnia Metoprolol Tartrate (Metoprolol Tartrate 50 Mg Tablet) 50 mg PO BID [facility]; Protocol Last Admin: 11/02/24 08:47 Dose: 50 mg Morphine Sulfate (Morphine Sulfate 4 Mg/Ml Cartridge) 4 mg IVPUSH Q4H PRN; Protocol PRN Reason: Pain, Severe (Pain Scale 7-10) Last Admin: 11/01/24 09:57 Dose: 4 mg Omeprazole (Omeprazole 40 Mg Capsule.Dr) 40 mg PO DAILY@0630 [facility] Last Admin: 11/02/24 08:47 Dose: 40 mg Oxycodone HCl (Oxycodone Hcl Immed Release 5 Mg Tablet) 5 mg PO BEDTIME [facility] Last Admin: 11/01/24 20:21 Dose: 5 mg Pravastatin Sodium (Pravastatin Sodium 40 Mg Tablet) 40 mg PO DAILY [facility] Last Admin: 11/02/24 08:47 Dose: 40 mg Prochlorperazine Edisylate (Prochlorperazine Edisylate 10 Mg/2 Ml Vial) 5 mg IVPUSH Q6H PRN PRN Reason: Nausea Last Admin: 11/02/24 11:58 Dose: 5 mg Prochlorperazine Edisylate (Prochlorperazine Edisylate 10 Mg/2 Ml Vial) 5 mg IVPUSH Q6H PRN PRN Reason: Nausea Rivaroxaban (Rivaroxaban 20 Mg Tablet) 20 mg PO DAILY [facility] Last Admin: 11/02/24 08:48 Dose: 20 mg Sodium Chloride (0.9 % Sodium Chloride Flush 3 Ml Syringe) 3 ml IVFLUSH QSHIFT [facility] Last Admin: 11/02/24 08:48 Dose: 3 ml Sodium Chloride (Sodium Chloride Tab 1 Gm Tablet) 1 gm PO BID [facility] Last Admin: 11/02/24 08:47 Dose: 1 gm Home Medications ?Medication ?Instructions ?Recorded ?Confirmed ?Type dexamethasone 2 mg tablet 2 mg PO BEDTIME 10/21/24 10/27/24 History Magic Mouthwash 10 ml PO BID 10/27/24 10/27/24 History Diphen/Nystat/Antacid 1:1:1 240 mL suspension acetaminophen 325 mg tablet 650 mg PO Q6H PRN Pain 10/27/24 10/27/24 History oxycodone 5 mg tablet 5 mg PO BEDTIME 10/27/24 10/27/24 History Allergies Allergy/AdvReac Type Severity Reaction Status Date / Time latex (LATEX) Allergy Intermediate RASH WITH Verified 10/27/24 07:24 CONTACT Exam Vital signs: Vital Signs Temp 97.1 F 11/02/24 08:00 Pulse 83 11/02/24 08:00 Resp 18 11/02/24 11:40 BP 97/63 11/02/24 08:00 Pulse Ox 97 11/02/24 08:00 O2 Del Method High Flow Nasal Cannula 11/02/24 08:00 O2 Flow Rate 55 11/02/24 00:00 FiO2 76.2 11/02/24 00:00 Intake & Output 11/01/24 11/02/24 11/02/24 18:59 06:59 18:59 Intake Total 1540 / 2155 615 / 2155 905 / 905 Output Total 1550 / 1550 525 / 525 Balance -10 / 605 615 / 605 380 / 380 Urine Output (Average ml/kg/hr) 2.46 2.46 0.83 Intake: Intake, Oral Amount 360 / 460 100 / 460 240 / 240 Intake, IV Amount 1180 / 1695 515 / 1695 665 / 665 Sulfamethoxazole/Trimethoprim 1030 / 1545 515 / 1545 515 / 515 240 mg In Dextrose 5 % 500 ml @ 225 mls/hr IV Q8H [facility] Rx#: [id number] levoFLOXacin/D5W 750 mg In 150 150 / 150 150 / 150 ml @ 100 mls/hr IV Q24H [facility] Rx# :[id number] Output: Output, Urine Amount 1550 / 1550 525 / 525 Other: Number of Unmeasured Voids 2 Urine Bedpan Bedside Commode Urine Color Pale Yellow Yellow Last Bowel Movement 10/27/24 10/27/24 Weight 52.6 kg BMI result Body Mass Index 20.5 - Constitutional Present: no acute distress - Routine HEENT Exam Head: Present: normal inspection - Routine Respiratory Exam Present: CTAB - Routine Cardiovascular Exam Cardiovascular: Present: RRR, S1, S2 - Routine Abdominal Exam Present: soft - Routine Extremities Exam Absent: pedal edema - Routine Skin Exam Present: intact - Routine Neurological Exam Present: alert, oriented X3 Data - Labs CBC & Chem 7: 10/30/24 06:15 10/30/24 06:15 - Imaging Radiologist's impression: ITS Impressions Chest X-Ray 10/27/24 06:57 IMPRESSION: 1. Known right upper lobe mass. 2. Airspace opacity in the right middle lobe, consistent with pneumonia. Electronically signed by: Nahum Solano MD 10/27/2024 08:11 AM EDT RP Chest CTA 10/27/24 14:53 IMPRESSION: 1. No evidence of pulmonary emboli. 2. Known 5.4 x 5.9 x 5.2 cm right upper lobe mass. 2. Diffuse confluent bilateral airspace opacities. Differential diagnostic considerations include pulmonary edema, diffuse pneumonia, or hemorrhage. Clinical correlation is recommended. Electronically signed by: Nahum Solano MD 10/27/2024 03:21 PM EDT RP Chest X-Ray 11/02/24 10:17 IMPRESSION: 1. Lines and tubes in stable position. 2. No significant interval change in the appearance of the thorax. Electronically signed by: Minor Sim MD 11/02/2024 11:00 AM EDT RP Assessment and Plan Patient Active problem list reviewed?: Yes (1) Invasive ductal carcinoma of left breast Problem details: Status post mastectomy Status: Chronic Assessment and plan: 1. This is a 69-year-old woman with metastatic left breast invasive ductal carcinoma (triple negative), coronary artery disease, atrial fibrillation on anticoagulation, on palliative chemotherapy presenting with acute hypoxic respiratory failure secondary to multifocal pneumonia. CT angiogram performed 10/27/2024 shows no evidence of PE, known 5.9 x 5.4 cm right upper lobe mass and diffuse confluent bilateral airspace opacities. Differential diagnostic considerations included pulmonary edema, diffuse pneumonia or hemorrhage. She was on cefepime and vancomycin. Blood cultures were negative. Leukocytosis probably secondary to steroids and infection. She was developed dilutional anemia, closely monitor. She recently completed stereotactic brain radiation therapy and is on dexamethasone taper. Decrease dexamethasone to 1 mg daily. 2. Oral mucositis secondary to chemotherapy. Continue with magic mouthwash oral rinses and Diflucan. 3. Atrial fibrillation. She is on Xarelto and metoprolol. As recommended by Cardiology, resume diltiazem once blood pressure stabilizes. Recently performed echocardiogram shows normal LV function. 4. Pneumonia/hypoxemia. She has had recurrent fever and hypotension. She was back on high-flow oxygen. Chest x-ray shows continued patchy bilateral infiltrates, no change or improvement noted on x-ray today. She is on Levaquin and Bactrim. She continues to do poorly. Recommend pulmonary consultation to see if bronchoscopy and biopsy would help guide further treatment. Overall prognosis is guarded. - Time Spent With Patient Time Spent with Patient (in minutes): 15 Additional Coding: - Additional E/M codes Complex E/M visit Add On: CPT G2211
[2024-11-02 16:13] LABS: Glucose, Whole Blood 175 mg/dL (60-115)
--- NOTE | 2024-11-02 17:19 | HO.PM.IMPN ---
Subjective Subjective Date of Service: 11/02/24 Interval History: Pt seen this am, son at bedside, pt states she feels worse today, her breathing is more labored and she feels more lethargic, seen by gloria and pulnisha, Review of Systems -ve except as stated above Physical Exam Vital Signs: Vital Signs: Last Vital Signs Temp 97.1 F 11/02/24 15:10 Pulse 83 11/02/24 15:10 Resp 18 11/02/24 15:44 BP 102/62 11/02/24 15:10 Pulse Ox 92 11/02/24 15:10 O2 Del Method High Flow Nasal C annula 11/02/24 15:10 O2 Flow Rate 55 11/02/24 15:10 FiO2 70 11/02/24 15:10 Oxygen Flow Rate 55 11/01/24 07:43 BMI result Body Mass Index 20.5 General: AOx3, high-flow on, able to speak in full sentences. Appears tired Resp: CTA bilaterally, on high flow CVS: Irregularly irregular rhythm. No murmurs GI: Soft, NT, no distention Skin: Warm, dry Neuro: Cranial nerves II-XII grossly intact bilaterally. Motor grossly intact bilaterally Extremities: No edema Psych: Appropriate affect Objective Data Active Medications Acetaminophen (Acetaminophen 325 Mg Tablet) 650 mg PO Q6H PRN PRN Reason: Pain, Mild 1-3,fever,headache Last Admin: 11/02/24 08:47 Dose: 650 mg Documented By: CRISTINA Calcium Carbonate (Calcium Carbonate 750 Mg Tab.Chew) 750 mg PO Q4H PRN PRN Reason: Heartburn Dexamethasone (Dexamethasone 0.5 Mg Tablet) 1 mg PO DAILY [facility] Last Admin: 11/02/24 08:47 Dose: 1 mg Documented By: CRISTINA Dextrose (Dextrose 50 % 25 Gm/50 Ml Syringe) 25 gm IVPUSH Q15M PRN; Protocol PRN Reason: per Hypoglycemia Standing Ord. Furosemide (Furosemide 20 Mg Tablet) 20 mg PO DAILY [facility]; Protocol Stop: 11/04/24 10:00 Glucose (Glucose Gel 15 Gm Gel..Gram.) 15 gm PO Q15M PRN; Protocol PRN Reason: per Hypoglycemia Standing Ord. Trimethoprim/Sulfamethoxazole (240 mg/ Dextrose) 515 mls @ 225 mls/hr IV Q8H [facility] Last Infusion: 11/02/24 16:10 Dose: Infused Documented By: CRISTINA Levofloxacin (Levaquin) 750 mg in 150 mls @ 100 mls/hr IV Q24H [facility] Last Infusion: 11/02/24 10:33 Dose: Infused Documented By: CRISTINA Voriconazole 200 mg/ Sodium (Chloride) 100 mls @ 50 mls/hr IV Q12H [facility] Insulin Human Lispro (Insulin Lispro 100 Unit/Ml 3 Ml Vial) 0 unit SUBCUT QIDACHS [facility]; Protocol Last Admin: 11/02/24 11:58 Dose: 6 unit Documented By: CRISTINA Lidocaine/Diphenhydr/Alum/Mg/Simeth (Mag&Al/Sim/Diphenhyd/Lidocaine 10 Ml Oral.Susp) 10 ml PO BID [facility] Last Admin: 11/02/24 08:47 Dose: 10 ml Documented By: CRISTINA Lisinopril (Lisinopril 10 Mg Tablet) 10 mg PO DAILY [facility]; Protocol On Hold: 10/30/24 14:22 Last Admin: 10/30/24 09:14 Dose: Not Given Documented By: CRISTINA Non-Admin Reason: Physician Held Med Magnesium Hydroxide (Milk Of Magnesia 30 Ml Oral.Susp) 30 ml PO DAILY PRN PRN Reason: Constipation Last Admin: 11/02/24 08:47 Dose: 30 ml Documented By: CRISTINA Melatonin (Melatonin 3 Mg Tablet) 6 mg PO BEDTIME PRN PRN Reason: Insomnia Metoprolol Tartrate (Metoprolol Tartrate 50 Mg Tablet) 50 mg PO BID [facility]; Protocol Last Admin: 11/02/24 08:47 Dose: 50 mg Documented By: CRISTINA Morphine Sulfate (Morphine Sulfate 4 Mg/Ml Cartridge) 4 mg IVPUSH Q4H PRN; Protocol PRN Reason: Pain, Severe (Pain Scale 7-10) Last Admin: 11/02/24 13:56 Dose: 4 mg Documented By: CRISTINA Omeprazole (Omeprazole 40 Mg Capsule.Dr) 40 mg PO DAILY@0630 [facility] Last Admin: 11/02/24 08:47 Dose: 40 mg Documented By: CRISTINA Oxycodone HCl (Oxycodone Hcl Immed Release 5 Mg Tablet) 5 mg PO BEDTIME [facility] Last Admin: 11/01/24 20:21 Dose: 5 mg Documented By: HO.POTTSSU Pravastatin Sodium (Pravastatin Sodium 40 Mg Tablet) 40 mg PO DAILY [facility] Last Admin: 11/02/24 08:47 Dose: 40 mg Documented By: CRISTINA Prochlorperazine Edisylate (Prochlorperazine Edisylate 10 Mg/2 Ml Vial) 5 mg IVPUSH Q6H PRN PRN Reason: Nausea Last Admin: 11/02/24 11:58 Dose: 5 mg Documented By: CRISTINA Prochlorperazine Edisylate (Prochlorperazine Edisylate 10 Mg/2 Ml Vial) 5 mg IVPUSH Q6H PRN PRN Reason: Nausea Rivaroxaban (Rivaroxaban 20 Mg Tablet) 20 mg PO DAILY [facility] Last Admin: 11/02/24 08:48 Dose: 20 mg Documented By: CRISTINA Sodium Chloride (0.9 % Sodium Chloride Flush 3 Ml Syringe) 3 ml IVFLUSH QSHIFT [facility] Last Admin: 11/02/24 13:53 Dose: 3 ml Documented By: CRISTINA Sodium Chloride (Sodium Chloride Tab 1 Gm Tablet) 1 gm PO BID [facility] Last Admin: 11/02/24 08:47 Dose: 1 gm Documented By: CRISTINA Labs 10/30/24 06:15 10/30/24 06:15 Labs: Laboratory Results - last 24 hr 11/01/24 11/02/24 11/02/24 21:00 08:37 11:40 POC Glucose 96 104 267 H Lactate Dehydrogenase 11/02/24 11/02/24 14:29 16:05 POC Glucose 175 H Lactate Dehydrogenase 536 H Assessment and Plan (1) Acute hypoxic respiratory failure: Status: Acute Plan Pt is a 68-year-old female with a PMH significant for stage IV breast cancer with mets to the brain on chemoradiation therapy follows with Dr. Mcgill, persistent AFib on Xarelto, [id number] type 2 diabetes,?HTN, HLD, and GERD who presents to the ED with?shaking chills, headache, cough, and SOB upon awakening from sleep at 04:00 this morning. Pt is admitted to the hospital for treatment and further evaluation of acute hypoxic respiratory failure in the setting of pneumonia with sepsis in an immunocompromised pt. Acute hypoxic respiratory failure in the setting of pneumonia with sepsis in an immunocompromised pt; concern for PJP Pt with rigors, SOB, cough, CXR showing right middle lobe opacity consistent with pneumonia, initialy desatting into the 70s on RA CTA negative for PE, but showing diffuse confluent bilateral airspace opacities concerning for pulmonary edema vs diffuse pneumonia vs hemorrhage Met sepsis criteria with fever, tachycardia, tachypnea, leukocytosis; lactic acid likely falsely elevated due to rigors Was transferred to ICU on 10/28 on BiPAP due to flash pulmonary edema, treated with Lasix IV and transferred back to hospital floor on 10/29 Has repeat episode of respiratory distress on evening of 10/29 requiring rescue BiPAP though stayed on the hospital floor Initially treated with vancomycin and cefepime x3 days; vanc stopped as MRSA swab negative Will treat with levofloxacin and bactrin 15mg/kg in 3 divided doses for possible pneumocystis pneumonia, per ID recommendations Pt currently on high-flow, wean as tolerated Infectious disease following seen by pulm today, not a candidate for bronch , recc voriconazole cryptococcal Ag, b 2 glycoprotein and resp pathogen panel ordered today remains on decadron lasix decreased to 20 mg daily today, as she appears dry on exam repeat CXR today no change from before Fevers resolved Has continued to spike fevers up to 102.6 despite being on vanc and cefepime ID consulted, will start Bactrim for possible pneumocystis jiroveci pmeumonia Will check sputum culture, Pneumocystis jiroveci PCR; initial sample contaminated Hypotension bp borderline lasix reduced Diltiazem discontinued, will treat with albumin Continue Lasix p.o. and metoprolol as BP allows Monitor BP closely Pulmonary edema Initially treated with Lasix 40mg IV daily; switch to 20 mg daily today Cardiology following Persistent AFib with RVR Initially presented with HR in 130s-140s Given diltiazem 15 mg IV and again on the floor on 10/29 for tachycardia Diltiazem stopped Continue Xarelto, metoprolol Acute lactic acidosis, resolved Initial lactic acid 8.1 with repeat normalized At 1.7 secondary to rigors, not severe sepsis Oral mucositis Secondary to chemotherapy Continue Magic Mouthwash Received Fluconazole 50 mg daily x3 days Anemia of chronic disease Repeat CBC showed hgb drop from 10.0-->8.0; has since been stable around 8.8 Likely delusional from IVF Monitor CBC Hx of breast cancer with metastasis to brain Pt given stress dose of hydrocortisone in the ED Reduce dexamethasone to 1mg daily Oncology consulted, appreciate reccs Chronic hyponatremia Stable, around baseline Continue sodium tablets HTN BP has been soft, hold lisinopril Fpa-jcwlmek-mtxoeuiep type [address] on sliding scale insulin, diabetic diet HLD Continue statin GERD Continue PPI DNR/DNI DVT Prophylaxis: On Xarelto Quality Stroke Does the patient have a stroke diagnosis?: No VTE Prior VTE?: No VTE Risk Level:: Medical - moderate - high VTE Device Contraindication: Treatment Not Indicated VTE Drug Contraindication: N/A - Med Ordered
[2024-11-02] MEDS: Voriconazole 200 MG in 0.9 % Sodium Chloride 100 ML 50 MG IV (18:04)
--- NOTE | 2024-11-02 20:58 | P.PNPL_ITS ---
Subjective Subjective Date of Service: 11/02/24 Interval history: The patient and seen and examined. Still on HF. CXR still demonstrating bilateral ill defined opecities. Too sick for bronchoscopy. Immunocompromised. Objective Data Labs 10/30/24 06:15 10/30/24 06:15 Labs: Laboratory Results - last 24 hr 11/01/24 11/02/24 11/02/24 21:00 08:37 11:40 POC Glucose 96 104 267 H Lactate Dehydrogenase 11/02/24 11/02/24 14:29 16:05 POC Glucose 175 H Lactate Dehydrogenase 536 H Microbiology Microbiology Results: Microbiology 10/27/24 07:46 Blood - Venous Blood Culture - Final No growth after 5 days. 10/27/24 08:01 Blood - Venous Blood Culture - Final No growth after 5 days. 10/31/24 Unknown Sputum - Expectorated Gram Stain - Final 10/31/24 Unknown Sputum - Expectorated Sputum Culture - Final Review of Systems Review of Systems Yes Unobtainable due to mental condition and Unobtainable due to mental status Physical Exam 2 Exam: Exam: General: AOx3, high-flow, Lethargic Resp: CTA bilaterally CVS: Irregularly irregular rhythm. No murmurs GI: Soft, NT, no distention Skin: Warm, dry Neuro: Cranial nerves II-XII grossly intact bilaterally. Motor grossly intact bilaterally Extremities: No edema Psych: Appropriate affect Vital Signs: Vital Signs: Last Vital Signs Temp 98 F 11/02/24 19:51 Pulse 68 11/02/24 19:51 Resp 18 11/02/24 20:56 BP 126/65 11/02/24 19:51 Pulse Ox 92 11/02/24 19:51 O2 Del Method High Flow Nasal C annula 11/02/24 19:51 O2 Flow Rate 55 11/02/24 19:51 FiO2 70 11/02/24 15:10 Oxygen Flow Rate 55 11/01/24 07:43 BMI result Body Mass Index 20.5 Procedures Date of Service Date of Service: 11/02/24 Assessment and Plan Assessment and plan (1) Acute hypoxic respiratory failure: Status: Acute (2) Pneumonia: Status: Acute (3) Pneumonitis: Status: Acute (4) Lung mass: Problem details: Bronchial washing positive for malignant cells September 2024 Status: Acute Plan continue with Levaquin/Bactrim continue steroids Continue HF Bloodwork diuresis as tolerated No bronchoscopy, high risk Poor prognosis Time Spent With Patient Time: Total time managing care of this patient today ____ minutes. Progress Note: Quality Stroke Does the patient have a stroke diagnosis?: No
[2024-11-02 21:40] LABS: Glucose, Whole Blood 101 mg/dL (60-115)
[2024-11-02] MEDS: oxyCODONE HCl Immed Release 5 MG TABLET PO (22:11)
[2024-11-03] VITALS (13 sets, daily range): BP systolic 95–130; BP diastolic 53–67; PULSE 76–100; RESP 16–22; TEMP 36.1–36.9; O2SAT 90–100; BMI 20.4
[2024-11-03] MEDS: 0.9 % Sodium Chloride Flush 3 ML SYRINGE IVFLUSH ×4 (00:04→22:10)
[2024-11-03] MEDS: Voriconazole 200 MG in 0.9 % Sodium Chloride 100 ML 50 MG IV ×2 (05:44→17:04)
[2024-11-03 07:09] LABS: Hematocrit 24.5 % (37.0-47.0); Hemoglobin 8.9 g/dl (12.0-16.0); Mean Corpuscular HGB Conc 36.3 g/dl (31.0-35.0); Mean Corpuscular Hemoglobin 30.7 pg (27.0-33.0); Mean Corpuscular Volume 84.5 fL (80.0-98.0); NRBC Abs Auto 0.020 X10*3/uL (0.0-0.012); NRBC Pct Auto 0.1 /100WBC (0.0-0.2); Platelet Count 279 X10*3/uL (160-400); Red Blood Count 2.90 X10*6/uL (4.20-5.50); White Blood Count 25.6 X10*3/uL (4.8-10.8)
[2024-11-03 07:30] LABS: Alanine Aminotransferase 23 U/L (0-31); Albumin Level 3.3 g/dL (3.5-5.0); Alkaline Phosphatase 167 U/L (39-117); Anion Gap 15 (12-20); Aspartate Amino Transferase 40 U/L (5-31); Blood Urea Nitrogen 19 mg/dL (9-16); Calcium 8.5 mg/dL (8.4-10.2); Carbon Dioxide 21 mmol/L (22-29); Chloride 89 mmol/L (96-108); Creatinine Clr Calc Pharmacy 54.0; Estimated Glomerular Filt Rate > 60; Potassium 4.0 mmol/L (3.3-5.1); Sodium 121 mmol/L (135-145); Total Protein 6.1 g/dL (6.5-8.0)
[2024-11-03] MEDS: Sodium Chloride Tab 1 GM TABLET PO (08:28)
[2024-11-03] MEDS: Mag&Al/Sim/Diphenhyd/Lidocaine 10 ML ORAL.SUSP PO ×2 (08:37→22:08)
[2024-11-03 10:08] LABS: Chlamydia pneumoniae PCR Not Detected (Not Detect.); Coronavirus 229E PCR Not Detected (Not Detect.); Coronavirus HKU1 PCR Not Detected (Not Detect.); Coronavirus NL63 PCR Not Detected (Not Detect.); Coronavirus OC43 PCR Not Detected (Not Detect.); RSV PCR Not Detected (Not Detect.); Rhino/Enterovirus PCR Not Detected (Not Detect.)
[2024-11-03 10:38] LABS: Influenza A H1 PCR Not Detected (Not Detect.); Influenza A H1-2009 PCR Not Detected (Not Detect.); Influenza A H3 PCR Not Detected (Not Detect.); SARS-CoV-2 PCR Not Detected (Not Detect.)
[2024-11-03 11:53] LABS: Glucose, Whole Blood 166 mg/dL (60-115)
[2024-11-03 11:57] LABS: Anion Gap 15 (12-20); Blood Urea Nitrogen 21 mg/dL (9-16); Calcium 8.4 mg/dL (8.4-10.2); Carbon Dioxide 20 mmol/L (22-29); Chloride 89 mmol/L (96-108); Creatinine Clr Calc Pharmacy 50.2; Estimated Glomerular Filt Rate > 60; Potassium 4.5 mmol/L (3.3-5.1); Sodium 119 mmol/L (135-145)
--- NOTE | 2024-11-03 12:11 | PM.CNNEP ---
History of Present Illness Reason for Consult Consult date: 11/03/24 Chief Complaint Chief complaint: Hypoxia, Afib History of Present Illness Narrative: 69 y/o female with stage 4 metastatic breast cancer with brain metastases, atrial fibrillation on xarelto, DMII, HTN, HLD, GERD. presented 10/27 with shaking, chills, headache, cough, shortness of breath. CXR suggested pneumonia. Nephrology consulted for hyponatremia. patient has had mild hyponatremia since August. During hospital stay serum sodium 130-139. On 11/03, serum sodium 121. Patient had already been on 1gm sodium chloride tablets PO BID since 10/27. Started on NS drip on 11/03 after low sodium level result- repeat sodium around 11:30 a.m. was 119. patient states she feels bloated and tired. Family states she has been drinking plain water, has a hard time keeping anything else down. She is nauseous. She has some shortness of breath, is on high flow NC. Review of Systems Review of Systems Yes all other systems are reviewed and are negative [facility] Past Medical History Medical History (Updated 11/03/24 @ 12:20 by Ninoska Alcala, DNP, PERCUSSION INSTRUMENT REPAIRER-) Pneumonitis Lymphadenopathy, mediastinal Lung mass Colon cancer screening Hyperglycemia Port-A-Cath in place On beta harley at home Abnormal ultrasound of breast Screening for breast cancer PUD (peptic ulcer disease) Essential hypertension PAF (paroxysmal atrial fibrillation) Vertigo Pacemaker (~2008) GERD (gastroesophageal reflux disease) Hypercholesteremia Family History Family History Mother No problems noted. Father No problems noted. Surgical History Surgical History History of lung biopsy Hx of colonoscopy History of left mastectomy (07/04/22) History of lumpectomy of left breast History of appendectomy History of permanent cardiac pacemaker placement History of cholecystectomy History of tubal ligation Social History Social History Household Members: Family Housing: House Are you a primary progressive care nurse to a significant other at home: No Do you presently have visiting nurse or other home services: No Alcohol intake: never Patient Tobacco Use Status: Never used Tobacco Tobacco use type: Cigarette e-Cigarette/Vaping Use: Never Used Second Hand Smoke Exposure: No Advance Directives Date on File: 09/08/24 service: No Current occupational status: retired 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 Cognitive needs: No Hearing needs: No Vision needs: Yes Meds Allergies Allergy/AdvReac Type Severity Reaction Status Date / Time latex (LATEX) Allergy Intermediate RASH WITH Verified 10/27/24 07:24 CONTACT Active Medications: Current Medications Acetaminophen (Acetaminophen 325 Mg Tablet) 650 mg PO Q6H PRN PRN Reason: Pain, Mild 1-3,fever,headache Last Admin: 11/02/24 08:47 Dose: 650 mg Bisacodyl (Bisacodyl 10 Mg Supp.Rect) 10 mg DC BEDTIME PRN PRN Reason: Constipation Calcium Carbonate (Calcium Carbonate 750 Mg Tab.Chew) 750 mg PO Q4H PRN PRN Reason: Heartburn Dextrose (Dextrose 50 % 25 Gm/50 Ml Syringe) 25 gm IVPUSH Q15M PRN; Protocol PRN Reason: per Hypoglycemia Standing Ord. Glucose (Glucose Gel 15 Gm Gel..Gram.) 15 gm PO Q15M PRN; Protocol PRN Reason: per Hypoglycemia Standing Ord. Levofloxacin (Levaquin) 750 mg in 150 mls @ 100 mls/hr IV Q24H [facility] Last Infusion: 11/03/24 10:23 Dose: Infused Voriconazole 200 mg/ Sodium (Chloride) 100 mls @ 50 mls/hr IV Q12H [facility] Last Infusion: 11/03/24 07:45 Dose: Infused Insulin Human Lispro (Insulin Lispro 100 Unit/Ml 3 Ml Vial) 0 unit SUBCUT QIDACHS [facility]; Protocol Last Admin: 11/03/24 08:49 Dose: Not Given Lidocaine/Diphenhydr/Alum/Mg/Simeth (Mag&Al/Sim/Diphenhyd/Lidocaine 10 Ml Oral.Susp) 10 ml PO BID [facility] Last Admin: 11/03/24 08:37 Dose: 10 ml Lisinopril (Lisinopril 10 Mg Tablet) 10 mg PO DAILY [facility]; Protocol On Hold: 10/30/24 14:22 Last Admin: 10/30/24 09:14 Dose: Not Given Magnesium Hydroxide (Milk Of Magnesia 30 Ml Oral.Susp) 30 ml PO DAILY PRN PRN Reason: Constipation Last Admin: 11/02/24 08:47 Dose: 30 ml Melatonin (Melatonin 3 Mg Tablet) 6 mg PO BEDTIME PRN PRN Reason: Insomnia Methylprednisolone Sodium Succinate (Methylprednisolone Sod Succ 125 Mg/2 Ml Vial) 80 mg IVPUSH Q6H [facility] Last Admin: 11/03/24 11:45 Dose: 80 mg Metoprolol Tartrate (Metoprolol Tartrate 50 Mg Tablet) 50 mg PO BID [facility]; Protocol Last Admin: 11/03/24 08:27 Dose: 50 mg Morphine Sulfate (Morphine Sulfate 4 Mg/Ml Cartridge) 4 mg IVPUSH Q4H PRN; Protocol PRN Reason: Pain, Severe (Pain Scale 7-10) Last Admin: 11/03/24 01:40 Dose: 4 mg Omeprazole (Omeprazole 40 Mg Capsule.Dr) 40 mg PO DAILY@0630 [facility] Last Admin: 11/03/24 05:45 Dose: Not Given Oxycodone HCl (Oxycodone Hcl Immed Release 5 Mg Tablet) 5 mg PO BEDTIME [facility] Last Admin: 11/02/24 22:11 Dose: 5 mg Polyethylene Glycol (Polyethylene Glycol 3350 17 Gm Powd.Pack) 17 gm PO BEDTIME [facility] Last Admin: 11/02/24 22:11 Dose: 17 gm Pravastatin Sodium (Pravastatin Sodium 40 Mg Tablet) 40 mg PO DAILY [facility] Last Admin: 11/03/24 08:27 Dose: 40 mg Prochlorperazine Edisylate (Prochlorperazine Edisylate 10 Mg/2 Ml Vial) 5 mg IVPUSH Q6H PRN PRN Reason: Nausea Last Admin: 11/03/24 03:38 Dose: 5 mg Prochlorperazine Edisylate (Prochlorperazine Edisylate 10 Mg/2 Ml Vial) 5 mg IVPUSH Q6H PRN PRN Reason: Nausea Last Admin: 11/03/24 09:47 Dose: 5 mg Rivaroxaban (Rivaroxaban 20 Mg Tablet) 20 mg PO DAILY [facility] Last Admin: 11/03/24 08:28 Dose: 20 mg Senna/Docusate Sodium (Sennosides/Docusate Sodium Tablet) 1 tab PO BID PRN PRN Reason: Constipation Sodium Chloride (0.9 % Sodium Chloride Flush 3 Ml Syringe) 3 ml IVFLUSH QSHIFT [facility] Last Admin: 11/03/24 08:30 Dose: 3 ml Sodium Chloride (Sodium Chloride Tab 1 Gm Tablet) 2 gm PO TID [facility] Urea (Urea 15 Gm Powder) 30 gm PO BID [facility] Home Medications ?Medication ?Instructions ?Recorded ?Confirmed ?Last Taken ?Type dexamethasone 2 mg tablet 2 mg PO BEDTIME 10/21/24 10/27/24 10/26/24 History Magic Mouthwash 10 ml PO BID 10/27/24 10/27/24 10/26/24 History Diphen/Nystat/Antacid 1:1:1 240 mL suspension acetaminophen 325 mg tablet 650 mg PO Q6H PRN Pain 10/27/24 10/27/24 Unknown History oxycodone 5 mg tablet 5 mg PO BEDTIME 10/27/24 10/27/24 10/26/24 History Physical Exam Vital Signs: Last Vital Signs Temp 97.0 F 11/03/24 07:35 Pulse 76 11/03/24 07:35 Resp 20 11/03/24 11:30 BP 101/55 L 11/03/24 07:35 Pulse Ox 95 11/03/24 07:35 O2 Del Method High Flow Nasal Cannula 11/03/24 07:35 O2 Flow Rate 50 11/03/24 07:35 FiO2 70 11/03/24 07:35 Oxygen Flow Rate 55 11/01/24 07:43 BMI result Body Mass Index 20.4 Const General: no acute distress, alert and awake Resp Auscultation: wheezes Cardio Rate: regular rate Rhythm: regular rhythm Heart sounds: S1 normal heart sound present and S2 normal heart sound present GI Palpation (GI): Soft to palpation and nontender Skin Rashes: no rashes Extrem General: No edema Results Lab Results 11/03/24 06:50 11/03/24 10:57 Lab results: Chemistry 11/03/24 11/03/24 06:50 10:57 Sodium 121 L 119 L* Potassium 4.0 4.5 Carbon Dioxide 21 L 20 L BUN 19 H 21 H Creatinine 0.80 0.86 Calcium 8.5 8.4 Hematology 11/03/24 06:50 WBC 25.6 H Hgb 8.9 L Plt Count 279 Assessment and Plan (1) Hyponatremia: Status: Acute Plan 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 need urine electrolytes and urine osmolality to better assess cause of hyponatremia and treatment plan- ordered, stat. Antifungal treatments are likely contributing to SIADH, but given patient's overall clinical picture, costs of switching or discontinuing antifungal agents may outweigh the benefits- will manage SIADH with salt tablets and urea powder. repeat BMP this a.m. shows sodium has dropped since adding normal saline infusion, so should discontinue for now. urea powder 30grams BID, and increased salt tablets to 2grams TID. Free water fluid restriction 1.2L/24 hours- fluids like protein shakes with higher osmolality are ok. recommend re-checking serum sodium early this afternoon. Discussed with Dr Woods. Procedures Date of Service Date of Service: 11/03/24
[2024-11-03 13:27] LABS: Anion Gap 17 (12-20); Carbon Dioxide 16 mmol/L (22-29); Chloride 89 mmol/L (96-108); Potassium 4.9 mmol/L (3.3-5.1); Sodium 117 mmol/L (135-145)
[2024-11-03 14:54] LABS: Anion Gap 15 (12-20); Carbon Dioxide 19 mmol/L (22-29); Chloride 89 mmol/L (96-108); Potassium 4.1 mmol/L (3.3-5.1); Sodium 119 mmol/L (135-145)
[2024-11-03] MEDS: Sodium Chloride Tab 1 GM TABLET 2 GM PO ×2 (15:09→22:08)
--- NOTE | 2024-11-03 15:21 | MHC.CM.PN ---
EMR REVIEWED, PT W/BREAST CA W/METS TO BRAIN AUGUST 2024, SIADH AND CURRENTLY W/CRITICALLY LOW SODIUM AND HI FLOW O2, NO PLAN FOR DC AT THIS TIME, CM WILL CONT TO FOLLOW DC NEEDS.
--- NOTE | 2024-11-03 15:58 | P.PNIM_ITS ---
Subjective Subjective Date of Service: 11/03/24 Interval History: Pt states that she feels better than yesterday, her Na was significantly low this am, renal was consulted, pt was started on salt tabs and urea for siadh, daughter was at bedside, she stated they would like to monitor pt on Anx for few more days before they can decide about goc etc. bactrim was dced dueto hyponatremia pt remains on high flow Review of Systems -ve except as stated above Physical Exam 2 Vital Signs: Vital Signs: Last Vital Signs Temp 98.1 F 11/03/24 12:00 Pulse 99 11/03/24 12:00 Resp 22 H 11/03/24 15:01 BP 96/53 L 11/03/24 12:00 Pulse Ox 93 11/03/24 12:00 O2 Del Method High Flow Nasal C annula 11/03/24 12:00 O2 Flow Rate 50 11/03/24 12:00 FiO2 70 11/03/24 12:00 Oxygen Flow Rate 55 11/01/24 07:43 BMI result Body Mass Index 20.4 General: AOx3, high-flow on, able to speak in full sentences. Appears tired Resp: CTA bilaterally, on high flow CVS: Irregularly irregular rhythm. No murmurs GI: Soft, NT, no distention Skin: Warm, dry Neuro: Cranial nerves II-XII grossly intact bilaterally. Motor grossly intact bilaterally Extremities: No edema Psych: Appropriate affect Objective Data Active Medications Acetaminophen (Acetaminophen 325 Mg Tablet) 650 mg PO Q6H PRN PRN Reason: Pain, Mild 1-3,fever,headache Last Admin: 11/02/24 08:47 Dose: 650 mg Documented By: CRISTINA Bisacodyl (Bisacodyl 10 Mg Supp.Rect) 10 mg IA BEDTIME PRN PRN Reason: Constipation Calcium Carbonate (Calcium Carbonate 750 Mg Tab.Chew) 750 mg PO Q4H PRN PRN Reason: Heartburn Dextrose (Dextrose 50 % 25 Gm/50 Ml Syringe) 25 gm IVPUSH Q15M PRN; Protocol PRN Reason: per Hypoglycemia Standing Ord. Glucose (Glucose Gel 15 Gm Gel..Gram.) 15 gm PO Q15M PRN; Protocol PRN Reason: per Hypoglycemia Standing Ord. Levofloxacin (Levaquin) 750 mg in 150 mls @ 100 mls/hr IV Q24H [facility] Last Infusion: 11/03/24 10:23 Dose: Infused Documented By: JOE Voriconazole 200 mg/ Sodium (Chloride) 100 mls @ 50 mls/hr IV Q12H [facility] [place] Last Infusion: 11/03/24 07:45 Dose: Infused Documented By: JOE Insulin Human Lispro (Insulin Lispro 100 Unit/Ml 3 Ml Vial) 0 unit SUBCUT QIDACHS [facility]; Protocol Last Admin: 11/03/24 13:08 Dose: 2 unit Documented By: JOE Lidocaine/Diphenhydr/Alum/Mg/Simeth (Mag&Al/Sim/Diphenhyd/Lidocaine 10 Ml Oral.Susp) 10 ml PO BID [facility] [place] Last Admin: 11/03/24 08:37 Dose: 10 ml Documented By: JOE Lisinopril (Lisinopril 10 Mg Tablet) 10 mg PO DAILY [facility]; Protocol On Hold: 10/30/24 14:22 Last Admin: 10/30/24 09:14 Dose: Not Given Documented By: CRISTINA Non-Admin Reason: Physician Held Med Magnesium Hydroxide (Milk Of Magnesia 30 Ml Oral.Susp) 30 ml PO DAILY PRN PRN Reason: Constipation Last Admin: 11/02/24 08:47 Dose: 30 ml Documented By: CRISTINA Melatonin (Melatonin 3 Mg Tablet) 6 mg PO BEDTIME PRN PRN Reason: Insomnia Methylprednisolone Sodium Succinate (Methylprednisolone Sod Succ 125 Mg/2 Ml Vial) 80 mg IVPUSH Q6H [facility] [place] Last Admin: 11/03/24 11:45 Dose: 80 mg Documented By: JOE Methylprednisolone Sodium Succinate (Methylprednisolone Sod Succ 125 Mg/2 Ml Vial) 80 mg IVPUSH Q6H [facility] Metoprolol Tartrate (Metoprolol Tartrate 50 Mg Tablet) 50 mg PO BID [facility]; Protocol Last Admin: 11/03/24 08:27 Dose: 50 mg Documented By: JOE Morphine Sulfate (Morphine Sulfate 4 Mg/Ml Cartridge) 4 mg IVPUSH Q4H PRN; Protocol PRN Reason: Pain, Severe (Pain Scale 7-10) Last Admin: 11/03/24 01:40 Dose: 4 mg Documented By: BERNARDA Omeprazole (Omeprazole 40 Mg Capsule.Dr) 40 mg PO DAILY@0630 [facility] [place] Last Admin: 11/03/24 05:45 Dose: Not Given Documented By: BERNARDA Non-Admin Reason: Nausea Oxycodone HCl (Oxycodone Hcl Immed Release 5 Mg Tablet) 5 mg PO BEDTIME [facility] [place] Last Admin: 11/02/24 22:11 Dose: 5 mg Documented By: BERNARDA Polyethylene Glycol (Polyethylene Glycol 3350 17 Gm Powd.Pack) 17 gm PO BEDTIME [facility] [place] Last Admin: 11/02/24 22:11 Dose: 17 gm Documented By: BERNARDA Pravastatin Sodium (Pravastatin Sodium 40 Mg Tablet) 40 mg PO DAILY [facility] [place] Last Admin: 11/03/24 08:27 Dose: 40 mg Documented By: JOE Prochlorperazine Edisylate (Prochlorperazine Edisylate 10 Mg/2 Ml Vial) 5 mg IVPUSH Q6H PRN PRN Reason: Nausea Last Admin: 11/03/24 15:09 Dose: 5 mg Documented By: JOE Prochlorperazine Edisylate (Prochlorperazine Edisylate 10 Mg/2 Ml Vial) 5 mg IVPUSH Q6H PRN PRN Reason: Nausea Last Admin: 11/03/24 09:47 Dose: 5 mg Documented By: PRIYANKA Rivaroxaban (Rivaroxaban 20 Mg Tablet) 20 mg PO DAILY [facility] [place] Last Admin: 11/03/24 08:28 Dose: 20 mg Documented By: JOE Senna/Docusate Sodium (Sennosides/Docusate Sodium Tablet) 1 tab PO BID PRN PRN Reason: Constipation Sodium Chloride (0.9 % Sodium Chloride Flush 3 Ml Syringe) 3 ml IVFLUSH QSHIFT [facility] [place] Last Admin: 11/03/24 15:13 Dose: 3 ml Documented By: JOE Sodium Chloride (Sodium Chloride Tab 1 Gm Tablet) 2 gm PO TID [facility] [place] Last Admin: 11/03/24 15:09 Dose: 2 gm Documented By: JOE Urea (Urea 15 Gm Powder) 30 gm PO BID [facility] Labs 11/03/24 06:50 11/03/24 14:26 Labs: Laboratory Results - last 24 hr 11/02/24 11/02/24 11/02/24 14:29 16:05 17:24 MCV MCH MCHC RDW Plt Count MPV Absolute Nucleated RBC Nucleated RBC % (auto) Anion Gap Estim Creat Clear Calc Estimated GFR POC Glucose 175 H Random Glucose Calcium Total Bilirubin AST ALT Alkaline Phosphatase Total Protein Albumin Urine Osmolality Ur Random Sodium Ur Random Potassium Ur Random Chloride Respiratory Panel C[facility]ares See Note Adenovirus (Rapid PCR) Not Detected B.pert (TEM-PCR) Not Detected B.parapertussis DNA PCR Not Detected C. pneumoniae DNA (PCR) Not Detected Coronavirus OC43 (PCR) Not Detected Coronavirus HKU1 (PCR) Not Detected Coronavirus 229E (PCR) Not Detected Coronavirus NL63 (PCR) Not Detected Human Metapneumovir PCR Not Detected Influenza A (RT-PCR) Not Detected Influenza A (H1) PCR Not Detected Influ A () PCR Not Detected Influenza A (H3) PCR Not Detected Influenza B (RT-PCR) Not Detected M. pneumoniae (PCR) Not Detected Parainfluenza 1 (PCR) Not Detected Parainfluenza 2 (PCR) Not Detected Parainfluenza 3 (PCR) Not Detected Parainfluenza 4 (PCR) Not Detected RSV (PCR) Not Detected Entero/Rhino (PCR) Not Detected SARS-CoV-2 RNA (RT-PCR) Not Detected Cryptococcal Ag SEE NOTE 11/02/24 11/03/24 11/03/24 21:26 06:50 10:57 MCV 84.5 MCH 30.7 MCHC 36.3 H RDW 17.9 H Plt Count 279 MPV 8.3 L Absolute Nucleated RBC 0.020 H Nucleated RBC % (auto) 0.1 Anion Gap 15 15 Estim Creat Clear Calc 54.0 50.2 Estimated GFR > 60 > 60 POC Glucose 101 Random Glucose 144 H 219 H Calcium 8.5 8.4 Total Bilirubin 0.3 AST 40 H ALT 23 Alkaline Phosphatase 167 H Total Protein 6.1 L Albumin 3.3 L Urine Osmolality Ur Random Sodium Ur Random Potassium Ur Random Chloride Respiratory Panel [facility] Adenovirus (Rapid PCR) B.pert (TEM-PCR) B.parapertussis DNA PCR C. pneumoniae DNA (PCR) Coronavirus OC43 (PCR) Coronavirus HKU1 (PCR) Coronavirus 229E (PCR) Coronavirus NL63 (PCR) Human Metapneumovir PCR Influenza A (RT-PCR) Influenza A (H1) PCR Influ A (H1) PCR Influenza A (H3) PCR Influenza B (RT-PCR) M. pneumoniae (PCR) Parainfluenza 1 (PCR) Parainfluenza 2 (PCR) Parainfluenza 3 (PCR) Parainfluenza 4 (PCR) RSV (PCR) Entero/Rhino (PCR) SARS-CoV-2 RNA (RT-PCR) Cryptococcal Ag 11/03/24 11/03/24 11/03/24 11:50 13:03 14:26 MCV MCH MCHC RDW Plt Count MPV Absolute Nucleated RBC Nucleated RBC % (auto) Anion Gap 17 15 Estim Creat Clear Calc Estimated GFR POC Glucose 166 H Random Glucose Calcium Total Bilirubin AST ALT Alkaline Phosphatase Total Protein Albumin Urine Osmolality Ur Random Sodium Ur Random Potassium Ur Random Chloride Respiratory Panel [facility] Adenovirus (Rapid PCR) B.pert (TEM-PCR) B.parapertussis DNA PCR C. pneumoniae DNA (PCR) Coronavirus OC43 (PCR) Coronavirus HKU1 (PCR) Coronavirus 229E (PCR) Coronavirus NL63 (PCR) Human Metapneumovir PCR Influenza A (RT-PCR) Influenza A (H1) PCR Influ A () PCR Influenza A (H3) PCR Influenza B (RT-PCR) M. pneumoniae (PCR) Parainfluenza 1 (PCR) Parainfluenza 2 (PCR) Parainfluenza 3 (PCR) Parainfluenza 4 (PCR) RSV (PCR) Entero/Rhino (PCR) SARS-CoV-2 RNA (RT-PCR) Cryptococcal Ag 11/03/24 11/03/24 14:50 14:50 MCV MCH MCHC RDW Plt Count MPV Absolute Nucleated RBC Nucleated RBC % (auto) Anion Gap Estim Creat Clear Calc Estimated GFR POC Glucose Random Glucose Calcium Total Bilirubin AST ALT Alkaline Phosphatase Total Protein Albumin Urine Osmolality 298 L Ur Random Sodium 85.0 85.0 Ur Random Potassium 22.5 Ur Random Chloride 80.0 Respiratory Panel [facility] Adenovirus (Rapid PCR) B.pert (TEM-PCR) B.parapertussis DNA PCR C. pneumoniae DNA (PCR) Coronavirus OC43 (PCR) Coronavirus HKU1 (PCR) Coronavirus 229E (PCR) Coronavirus NL63 (PCR) Human Metapneumovir PCR Influenza A (RT-PCR) Influenza A (H1) PCR Influ A () PCR Influenza A (H3) PCR Influenza B (RT-PCR) M. pneumoniae (PCR) Parainfluenza 1 (PCR) Parainfluenza 2 (PCR) Parainfluenza 3 (PCR) Parainfluenza 4 (PCR) RSV (PCR) Entero/Rhino (PCR) SARS-CoV-2 RNA (RT-PCR) Cryptococcal Ag Assessment and Plan (1) Pneumonia: Status: Acute (2) Lung mass: Status: Acute (3) PAF (paroxysmal atrial fibrillation): Status: Acute (4) Acute hypoxic respiratory failure: Status: Acute Plan Pt is a 68-year-old female with a PMH significant for stage IV breast cancer with mets to the brain on chemoradiation therapy follows with Dr. Mcgill, persistent AFib on Xarelto, [id number] type 2 diabetes,?HTN, HLD, and GERD who presents to the ED with?shaking chills, headache, cough, and SOB upon awakening from sleep at 04:00 this morning. Pt is admitted to the hospital for treatment and further evaluation of acute hypoxic respiratory failure in the setting of pneumonia with sepsis in an immunocompromised pt. Acute hypoxic respiratory failure in the setting of pneumonia with sepsis in an immunocompromised pt; concern for PJP Pt with rigors, SOB, cough, CXR showing right middle lobe opacity consistent with pneumonia, initialy desatting into the 70s on RA CTA negative for PE, but showing diffuse confluent bilateral airspace opacities concerning for pulmonary edema vs diffuse pneumonia vs hemorrhage Met sepsis criteria with fever, tachycardia, tachypnea, leukocytosis; lactic acid likely falsely elevated due to rigors Was transferred to ICU on 10/28 on BiPAP due to flash pulmonary edema, treated with Lasix IV and transferred back to hospital floor on 10/29 Has repeat episode of respiratory distress on evening of 10/29 requiring rescue BiPAP though stayed on the hospital floor Initially treated with vancomycin and cefepime x3 days; vanc stopped as MRSA swab negative then with levofloxacin and bactrin 15mg/kg in 3 divided doses for possible pneumocystis pneumonia, per ID recommendations however given hyponatremia, bactrim was dced on 11/03 Pt currently on high-flow, wean as tolerated Infectious disease following seen by pulm, not a candidate for bronch , recc voriconazole cryptococcal Ag, b 2 glycoprotein and resp pathogen panel ordered today remains on decadron lasix decreased to 20 mg daily, as she appears dry on exam repeat CXR today no change from before Hyponatremia: acute on chronic likely SIADH, renal consulted urea and salt tabs close monitoring of Na fluid restriction dc IVF Fevers resolved Has continued to spike fevers up to 102.6 despite being on vanc and cefepime ID consulted, started on Bactrim for possible pneumocystis jiroveci pmeumonia,however dced due to hyponatremia today Will check sputum culture, Pneumocystis jiroveci PCR; initial sample contaminated labs pending Hypotension bp borderline Diltiazem discontinued, will treat with albumin lasix dced today metoprolol as BP allows Monitor BP closely Pulmonary edema Initially treated with Lasix 40mg IV daily; switch to 20 mg daily thereafter and now dced Cardiology consulted Persistent AFib with RVR Initially presented with HR in 130s-140s Given diltiazem 15 mg IV and again on the floor on 10/29 for tachycardia Diltiazem stopped Continue Xarelto, metoprolol Acute lactic acidosis, resolved Initial lactic acid 8.1 with repeat normalized At 1.7 secondary to rigors, not severe sepsis Oral mucositis Secondary to chemotherapy Continue Magic Mouthwash Received Fluconazole 50 mg daily x3 days Anemia of chronic disease Repeat CBC showed hgb drop from 10.0-->8.0; has since been stable around 8.8 Likely delusional from IVF Monitor CBC Hx of breast cancer with metastasis to brain Pt given stress dose of hydrocortisone in the ED Reduce dexamethasone to 1mg daily Oncology consulted, appreciate reccs HTN BP has been soft, hold lisinopril Txr-amuwzlf-llkvawpwz type [address] on sliding scale insulin, diabetic diet HLD Continue statin GERD Continue PPI DNR/DNI DVT Prophylaxis: On Xarelto OMN: acute hypoxia, acute hyponatremia, Quality Stroke Does the patient have a stroke diagnosis?: No VTE Prior VTE?: No VTE Risk Level:: Medical - moderate - high VTE Device Contraindication: Treatment Not Indicated VTE Drug Contraindication: N/A - Med Ordered
[2024-11-03 16:20] LABS: Glucose, Whole Blood 193 mg/dL (60-115)
[2024-11-03 16:38] LABS: Glucose, Whole Blood 144 mg/dL (60-115)
[2024-11-03 20:13] LABS: Anion Gap 16 (12-20); Blood Urea Nitrogen 78 mg/dL (9-16); Calcium 8.6 mg/dL (8.4-10.2); Carbon Dioxide 19 mmol/L (22-29); Chloride 89 mmol/L (96-108); Creatinine Clr Calc Pharmacy 46.9; Estimated Glomerular Filt Rate > 60; Potassium 4.2 mmol/L (3.3-5.1)
[2024-11-03 20:17] LABS: Sodium 120 mmol/L (135-145)
[2024-11-03 21:02] LABS: Glucose, Whole Blood 225 mg/dL (60-115)
[2024-11-03] MEDS: oxyCODONE HCl Immed Release 5 MG TABLET PO (22:09)
[2024-11-04] VITALS (11 sets, daily range): BP systolic 94–103; BP diastolic 45–56; PULSE 65–100; RESP 16–20; TEMP 36.2–36.5; O2SAT 91–98; BMI 24.4
[2024-11-04 02:12] LABS: Anion Gap 14 (12-20); Blood Urea Nitrogen 63 mg/dL (9-16); Calcium 9.1 mg/dL (8.4-10.2); Carbon Dioxide 21 mmol/L (22-29); Chloride 96 mmol/L (96-108); Creatinine Clr Calc Pharmacy 53.3; Estimated Glomerular Filt Rate > 60; Potassium 3.9 mmol/L (3.3-5.1); Sodium 127 mmol/L (135-145)
[2024-11-04] MEDS: Voriconazole 200 MG in 0.9 % Sodium Chloride 100 ML 50 MG IV (04:47)
[2024-11-04 07:45] LABS: Glucose, Whole Blood 127 mg/dL (60-115)
[2024-11-04 07:48] LABS: Hematocrit 25.5 % (37.0-47.0); Hemoglobin 9.1 g/dl (12.0-16.0); Mean Corpuscular HGB Conc 35.7 g/dl (31.0-35.0); Mean Corpuscular Hemoglobin 30.4 pg (27.0-33.0); Mean Corpuscular Volume 85.3 fL (80.0-98.0); NRBC Abs Auto 0.020 X10*3/uL (0.0-0.012); NRBC Pct Auto 0.1 /100WBC (0.0-0.2); Platelet Count 280 X10*3/uL (160-400); Red Blood Count 2.99 X10*6/uL (4.20-5.50)
[2024-11-04 08:01] LABS: White Blood Count 30.8 X10*3/uL (4.8-10.8)
[2024-11-04] MEDS: Mag&Al/Sim/Diphenhyd/Lidocaine 10 ML ORAL.SUSP PO ×2 (08:03→21:32)
[2024-11-04] MEDS: 0.9 % Sodium Chloride Flush 3 ML SYRINGE IVFLUSH (08:05)
[2024-11-04 08:10] LABS: Alanine Aminotransferase 17 U/L (0-31); Albumin Level 3.4 g/dL (3.5-5.0); Alkaline Phosphatase 167 U/L (39-117); Anion Gap 16 (12-20); Aspartate Amino Transferase 38 U/L (5-31); Blood Urea Nitrogen 52 mg/dL (9-16); Calcium 9.1 mg/dL (8.4-10.2); Carbon Dioxide 21 mmol/L (22-29); Chloride 98 mmol/L (96-108); Creatinine Clr Calc Pharmacy 53.4; Estimated Glomerular Filt Rate > 60; Potassium 3.8 mmol/L (3.3-5.1); Sodium 131 mmol/L (135-145); Total Protein 6.1 g/dL (6.5-8.0)
--- NOTE | 2024-11-04 08:30 | P.PNPL_ITS ---
Subjective Subjective Date of Service: 11/04/24 Interval history: The patient was seen on exam. Feels a little better today. Still on high-flow. She was too weak to stand yesterday to go into recliner. I do believe that getting her out of bed will be important to try to help recruit additional lung. She was placed on additional steroids and she continues on the voriconazole in addition to the antibiotics. Will hopefully get a chest x-ray today. The meantime I did give her an incentive spirometer for her to work on deep breathing and also an Acapella valve for her to work on mucus clearance. Objective Data Labs 11/04/24 07:29 11/04/24 07:29 Labs: Laboratory Results - last 24 hr 11/02/24 11/02/24 11/03/24 14:29 17:24 07:18 WBC RBC Hgb Hct MCV MCH MCHC RDW Plt Count MPV Absolute Nucleated RBC Nucleated RBC % (auto) Sodium Potassium Chloride Carbon Dioxide Anion Gap BUN Creatinine Estim Creat Clear Calc Estimated GFR POC Glucose 144 H Random Glucose Calcium Total Bilirubin AST ALT Alkaline Phosphatase Total Protein Albumin Urine Osmolality Ur Random Sodium Ur Random Potassium Ur Random Chloride Respiratory Panel [facility] See Note Adenovirus (Rapid PCR) Not Detected B.pert (TEM-PCR) Not Detected B.parapertussis DNA PCR Not Detected C. pneumoniae DNA (PCR) Not Detected Coronavirus OC43 (PCR) Not Detected Coronavirus HKU1 (PCR) Not Detected Coronavirus 229E (PCR) Not Detected Coronavirus NL63 (PCR) Not Detected Human Metapneumovir PCR Not Detected Influenza A (RT-PCR) Not Detected Influenza A (H1) PCR Not Detected Influ A (H1/09) PCR Not Detected Influenza A (H3) PCR Not Detected Influenza B (RT-PCR) Not Detected M. pneumoniae (PCR) Not Detected Parainfluenza 1 (PCR) Not Detected Parainfluenza 2 (PCR) Not Detected Parainfluenza 3 (PCR) Not Detected Parainfluenza 4 (PCR) Not Detected RSV (PCR) Not Detected Entero/Rhino (PCR) Not Detected SARS-CoV-2 RNA (RT-PCR) Not Detected Cryptococcal Ag SEE NOTE 11/03/24 11/03/24 11/03/24 10:57 11:50 13:03 WBC RBC Hgb Hct MCV MCH MCHC RDW Plt Count MPV Absolute Nucleated RBC Nucleated RBC % (auto) Sodium 119 L* 117 L* Potassium 4.5 4.9 Chloride 89 L 89 L Carbon Dioxide 20 L 16 L Anion Gap 15 17 BUN 21 H Creatinine 0.86 Estim Creat Clear Calc 50.2 Estimated GFR > 60 POC Glucose 166 H Random Glucose 219 H Calcium 8.4 Total Bilirubin AST ALT Alkaline Phosphatase Total Protein Albumin Urine Osmolality Ur Random Sodium Ur Random Potassium Ur Random Chloride Respiratory Panel [facility] Adenovirus (Rapid PCR) B.pert (TEM-PCR) B.parapertussis DNA PCR C. pneumoniae DNA (PCR) Coronavirus OC43 (PCR) Coronavirus HKU1 (PCR) Coronavirus 229E (PCR) Coronavirus NL63 (PCR) Human Metapneumovir PCR Influenza A (RT-PCR) Influenza A (H1) PCR Influ A () PCR Influenza A (H3) PCR Influenza B (RT-PCR) M. pneumoniae (PCR) Parainfluenza 1 (PCR) Parainfluenza 2 (PCR) Parainfluenza 3 (PCR) Parainfluenza 4 (PCR) RSV (PCR) Entero/Rhino (PCR) SARS-CoV-2 RNA (RT-PCR) Cryptococcal Ag 11/03/24 11/03/24 11/03/24 14:26 14:50 14:50 WBC RBC Hgb Hct MCV MCH MCHC RDW Plt Count MPV Absolute Nucleated RBC Nucleated RBC % (auto) Sodium 119 L* Potassium 4.1 Chloride 89 L Carbon Dioxide 19 L Anion Gap 15 BUN Creatinine Estim Creat Clear Calc Estimated GFR POC Glucose Random Glucose Calcium Total Bilirubin AST ALT Alkaline Phosphatase Total Protein Albumin Urine Osmolality 298 L Ur Random Sodium 85.0 85.0 Ur Random Potassium 22.5 Ur Random Chloride 80.0 Respiratory Panel [facility] Adenovirus (Rapid PCR) B.pert (TEM-PCR) B.parapertussis DNA PCR C. pneumoniae DNA (PCR) Coronavirus OC43 (PCR) Coronavirus HKU1 (PCR) Coronavirus 229E (PCR) Coronavirus NL63 (PCR) Human Metapneumovir PCR Influenza A (RT-PCR) Influenza A (H1) PCR Influ A () PCR Influenza A (H3) PCR Influenza B (RT-PCR) M. pneumoniae (PCR) Parainfluenza 1 (PCR) Parainfluenza 2 (PCR) Parainfluenza 3 (PCR) Parainfluenza 4 (PCR) RSV (PCR) Entero/Rhino (PCR) SARS-CoV-2 RNA (RT-PCR) Cryptococcal Ag 11/03/24 11/03/24 11/03/24 16:17 19:26 20:59 WBC RBC Hgb Hct MCV MCH MCHC RDW Plt Count MPV Absolute Nucleated RBC Nucleated RBC % (auto) Sodium 120 L* Potassium 4.2 Chloride 89 L Carbon Dioxide 19 L Anion Gap 16 BUN 78 H Creatinine 0.92 Estim Creat Clear Calc 46.9 Estimated GFR > 60 POC Glucose 193 H 225 H Random Glucose 229 H Calcium 8.6 Total Bilirubin AST ALT Alkaline Phosphatase Total Protein Albumin Urine Osmolality Ur Random Sodium Ur Random Potassium Ur Random Chloride Respiratory Panel [facility] Adenovirus (Rapid PCR) B.pert (TEM-PCR) B.parapertussis DNA PCR C. pneumoniae DNA (PCR) Coronavirus OC43 (PCR) Coronavirus HKU1 (PCR) Coronavirus 229E (PCR) Coronavirus NL63 (PCR) Human Metapneumovir PCR Influenza A (RT-PCR) Influenza A (H1) PCR Influ A (H1/09) PCR Influenza A (H3) PCR Influenza B (RT-PCR) M. pneumoniae (PCR) Parainfluenza 1 (PCR) Parainfluenza 2 (PCR) Parainfluenza 3 (PCR) Parainfluenza 4 (PCR) RSV (PCR) Entero/Rhino (PCR) SARS-CoV-2 RNA (RT-PCR) Cryptococcal Ag 11/04/24 11/04/24 11/04/24 01:38 07:29 07:37 WBC 30.8 H* RBC 2.99 L Hgb 9.1 L Hct 25.5 L MCV 85.3 MCH 30.4 MCHC 35.7 H RDW 18.1 H Plt Count 280 MPV 8.4 L Absolute Nucleated RBC 0.020 H Nucleated RBC % (auto) 0.1 Sodium 127 L 131 L Potassium 3.9 3.8 Chloride 96 98 Carbon Dioxide 21 L 21 L Anion Gap 14 16 BUN 63 H 52 H Creatinine 0.81 0.81 Estim Creat Clear Calc 53.3 53.4 Estimated GFR > 60 > 60 POC Glucose 127 H Random Glucose 131 H 131 H Calcium 9.1 9.1 Total Bilirubin 0.3 AST 38 H ALT 17 Alkaline Phosphatase 167 H Total Protein 6.1 L Albumin 3.4 L Urine Osmolality Ur Random Sodium Ur Random Potassium Ur Random Chloride Respiratory Panel [facility] Adenovirus (Rapid PCR) B.pert (TEM-PCR) B.parapertussis DNA PCR C. pneumoniae DNA (PCR) Coronavirus OC43 (PCR) Coronavirus HKU1 (PCR) Coronavirus 229E (PCR) Coronavirus NL63 (PCR) Human Metapneumovir PCR Influenza A (RT-PCR) Influenza A (H1) PCR Influ A (H1/09) PCR Influenza A (H3) PCR Influenza B (RT-PCR) M. pneumoniae (PCR) Parainfluenza 1 (PCR) Parainfluenza 2 (PCR) Parainfluenza 3 (PCR) Parainfluenza 4 (PCR) RSV (PCR) Entero/Rhino (PCR) SARS-CoV-2 RNA (RT-PCR) Cryptococcal Ag Microbiology Microbiology Results: Microbiology 10/27/24 07:46 Blood - Venous Blood Culture - Final No growth after 5 days. 10/27/24 08:01 Blood - Venous Blood Culture - Final No growth after 5 days. 10/31/24 Unknown Sputum - Expectorated Gram Stain - Final 10/31/24 Unknown Sputum - Expectorated Sputum Culture - Final Review of Systems Constitutional: Denies fever(s), Reports increased appetite and Reports weakness Reports system reviewed and no additional complaints, except as documented Cardiovascular: Reports no additional cardiovascular complaints and Reports dyspnea on exertion Respiratory: Reports dyspnea on exertion and Denies wheezing Gastrointestinal: Denies abdominal pain Musculoskeletal: Reports muscle weakness Reports weakness Hematologic/Lymphatic: Denies easy bleeding Allergic/Immunologic: Denies wheezing Physical Exam 2 Vital Signs: Vital Signs: Last Vital Signs Temp 97.1 F 11/04/24 07:40 Pulse 76 11/04/24 07:40 Resp 18 11/04/24 07:50 BP 103/56 L 11/04/24 07:40 Pulse Ox 94 11/04/24 07:40 O2 Del Method High Flow Nasal C annula 11/04/24 07:40 O2 Flow Rate 50 11/04/24 07:40 FiO2 70 11/04/24 07:40 Oxygen Flow Rate 55 11/01/24 07:43 BMI result Body Mass Index 24.4 Const: General: comfortable HEENT: Head: Yes normocephalic Neck: Neck: Yes supple Chest: Chest palpation & inspection: normal inspection of the chest Resp: Effort & Inspection: normal respiratory effort Auscultation: rales and diminished lung sounds Cardio: Heart sounds: S1 normal heart sound present and S2 normal heart sound present GI: Palpation (GI): Soft to palpation Skin: General skin exam: no rashes or lesions noted Extrem: General: Yes no clubbing, cyanosis or edema Procedures Date of Service Date of Service: 11/04/24 Assessment and Plan Assessment and plan (1) Acute hypoxic respiratory failure: Status: Acute (2) Pneumonia: Status: Acute (3) Pneumonitis: Status: Acute (4) Lung mass: Problem details: Bronchial washing positive for malignant cells September 2024 Status: Acute Plan continue with Levaquin/Bactrim/Voriconazole continue steroids: Increased to Solumedrol yesterday Continue HF, titrate to keep pox >90 ISS/Aerobika for CPT CXR diuresis as tolerated No bronchoscopy, high risk DNR Time Spent With Patient Time: Total time managing care of this patient today ____ minutes. Progress Note: Quality Stroke Does the patient have a stroke diagnosis?: No
--- NOTE | 2024-11-04 10:30 | P.PNNP_ITS ---
Subjective Subjective Date of Service: 11/04/24 Interval history: Here with pneumonia in setting stage 4 breast cancer s/p, immunosuppressed state from treatment. Following for hyponatremia. sodium 119 yesterday, worsened to 117 with IVF so IVF stopped. Urea powder and salt tablets ordered. overnight sodium correction 120 to 127 ~6 hours. urine osm 298, urine sodium 85 urea and salt tabs d/c'd to slow correction. patient reports she is doing a little better than yesterday. Denies specific changes/concern. Physical Exam 2 Vital Signs: Vital Signs: Last Vital Signs Temp 97.2 F 11/04/24 11:34 Pulse 84 11/04/24 11:34 Resp 20 11/04/24 11:34 BP 96/53 L 11/04/24 11:34 Pulse Ox 94 11/04/24 11:34 O2 Del Method High Flow Nasal C annula 11/04/24 11:34 O2 Flow Rate 50 11/04/24 11:34 FiO2 70 11/04/24 11:34 Oxygen Flow Rate 55 11/01/24 07:43 BMI result Body Mass Index 24.4 Const: General: no acute distress, alert and awake Resp: Auscultation: wheezes Cardio: Rate: regular rate Rhythm: regular rhythm Heart sounds: S1 normal heart sound present and S2 normal heart sound present GI: Palpation (GI): Soft to palpation and nontender Skin: Rashes: no rashes Extrem: General: No edema Objective Data Labs 11/04/24 07:29 11/04/24 10:22 Labs: Laboratory Results - last 24 hr 11/03/24 11/03/24 11/03/24 07:18 13:03 14:26 WBC RBC Hgb Hct MCV MCH MCHC RDW Plt Count MPV Absolute Nucleated RBC Nucleated RBC % (auto) Hold Purple Top Sodium 117 L* 119 L* Potassium 4.9 4.1 Chloride 89 L 89 L Carbon Dioxide 16 L 19 L Anion Gap 17 15 BUN Creatinine Estim Creat Clear Calc Estimated GFR POC Glucose 144 H Random Glucose Calcium Total Bilirubin AST ALT Alkaline Phosphatase Total Protein Albumin Urine Osmolality Ur Random Sodium Ur Random Potassium Ur Random Chloride 11/03/24 11/03/24 11/03/24 14:50 14:50 16:17 WBC RBC Hgb Hct MCV MCH MCHC RDW Plt Count MPV Absolute Nucleated RBC Nucleated RBC % (auto) Hold Purple Top Sodium Potassium Chloride Carbon Dioxide Anion Gap BUN Creatinine Estim Creat Clear Calc Estimated GFR POC Glucose 193 H Random Glucose Calcium Total Bilirubin AST ALT Alkaline Phosphatase Total Protein Albumin Urine Osmolality 298 L Ur Random Sodium 85.0 85.0 Ur Random Potassium 22.5 Ur Random Chloride 80.0 11/03/24 11/03/24 11/04/24 19:26 20:59 01:38 WBC RBC Hgb Hct MCV MCH MCHC RDW Plt Count MPV Absolute Nucleated RBC Nucleated RBC % (auto) Hold Purple Top Sodium 120 L* 127 L Potassium 4.2 3.9 Chloride 89 L 96 Carbon Dioxide 19 L 21 L Anion Gap 16 14 BUN 78 H 63 H Creatinine 0.92 0.81 Estim Creat Clear Calc 46.9 53.3 Estimated GFR > 60 > 60 POC Glucose 225 H Random Glucose 229 H 131 H Calcium 8.6 9.1 Total Bilirubin AST ALT Alkaline Phosphatase Total Protein Albumin Urine Osmolality Ur Random Sodium Ur Random Potassium Ur Random Chloride 11/04/24 11/04/24 11/04/24 07:29 07:37 10:22 WBC 30.8 H* RBC 2.99 L Hgb 9.1 L Hct 25.5 L MCV 85.3 MCH 30.4 MCHC 35.7 H RDW 18.1 H Plt Count 280 MPV 8.4 L Absolute Nucleated RBC 0.020 H Nucleated RBC % (auto) 0.1 Hold Purple Top SEE NOTE Sodium 131 L 126 L Potassium 3.8 4.5 Chloride 98 95 L Carbon Dioxide 21 L 21 L Anion Gap 16 15 BUN 52 H 51 H Creatinine 0.81 0.83 Estim Creat Clear Calc 53.4 52.1 Estimated GFR > 60 > 60 POC Glucose 127 H Random Glucose 131 H 304 H Calcium 9.1 9.1 Total Bilirubin 0.3 AST 38 H ALT 17 Alkaline Phosphatase 167 H Total Protein 6.1 L Albumin 3.4 L Urine Osmolality Ur Random Sodium Ur Random Potassium Ur Random Chloride 11/04/24 11:31 WBC RBC Hgb Hct MCV MCH MCHC RDW Plt Count MPV Absolute Nucleated RBC Nucleated RBC % (auto) Hold Purple Top Sodium Potassium Chloride Carbon Dioxide Anion Gap BUN Creatinine Estim Creat Clear Calc Estimated GFR POC Glucose 262 H Random Glucose Calcium Total Bilirubin AST ALT Alkaline Phosphatase Total Protein Albumin Urine Osmolality Ur Random Sodium Ur Random Potassium Ur Random Chloride Microbiology Microbiology Results: Microbiology 10/27/24 07:46 Blood - Venous Blood Culture - Final No growth after 5 days. 10/27/24 08:01 Blood - Venous Blood Culture - Final No growth after 5 days. 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 Antifungal treatments are likely contributing to SIADH, but given patient's overall clinical picture, costs of switching or discontinuing antifungal agents may outweigh the benefits- will manage SIADH with salt tablets and urea powder. sodium corrected too quickly, D5W started to slow correction. Recommend discontinuing D5W once serum sodium is 127 or lower. Then free water restriction 1.2L/24 hours. BMP q4 hours Discussed with Dr Woods. Time Spent With Patient Time: Total time managing care of this patient today ____ minutes. Progress Note: Quality Stroke Does the patient have a stroke diagnosis?: No
[2024-11-04 11:25] LABS: Anion Gap 15 (12-20); Blood Urea Nitrogen 51 mg/dL (9-16); Calcium 9.1 mg/dL (8.4-10.2); Carbon Dioxide 21 mmol/L (22-29); Chloride 95 mmol/L (96-108); Creatinine Clr Calc Pharmacy 52.1; Estimated Glomerular Filt Rate > 60; Potassium 4.5 mmol/L (3.3-5.1); Sodium 126 mmol/L (135-145)
[2024-11-04 11:42] LABS: Glucose, Whole Blood 262 mg/dL (60-115)
--- NOTE | 2024-11-04 12:35 | MHC.CLN ---
F/U PO INTAKE 50-100% X3 MEALS DIET RX: 2000DM RECEIVING ENSURE BID TO PROVIDE 700KCALS, 40G PROTEIN MONITOR PO INTAKE AND ENCOURAGE SUPPLEMENTS
--- NOTE | 2024-11-04 13:45 | MHC.CM.PN ---
EMR REVIEWED, PT W/BREAST CA W/METS TO BRAIN AUGUST 2024, SIADH AND CURRENTLY HYPONATREMIC AND ON HI-FLOW O2, CM WILL CONT TO FOLLOW DC NEEDS.
--- NOTE | 2024-11-04 14:03 | PM.HEMONCPN ---
Medical Summary - Medical Summary Date of Service: 11/04/24 Chief complaint: weakness Primary Care Provider: Maurilio Carias MD Medical Summary: Diagnosis: Left breast infiltrating ductal carcinoma 10/2021/triple negative breast cancer. Never had screening mammograms. Self palpated small breast lump around March of this year but did not bring this to anybody's attention. This grew in size and she felt some discomfort, mammogram and subsequent ultrasound revealed 2.5 X2.6 cm spiculated mass in the upper outer quadrant with associated lymphadenopathy. Ultrasound revealed left breast mid to posterior depth, upper-outer quadrant mass measuring 2.3 cm. Large left axillary lymph node measuring 2.7 x 2.3 cm. Biopsy of left breast mass at 03:00 o'clock position revealed poorly differentiated invasive carcinoma with ductal features and squamous differentiation. Grade 3. Biopsy of left axillary lymph node (2.7x2.3cm) positive for metastatic carcinoma consistent with breast primary. Estrogen receptor -0%, progesterone receptor -0%, HER2 2+, FISH negative. Proliferation index high 30% by Ki- 67 immunostain. No family history of breast cancer. 4 para 3, 1 child of malnutrition in [facility]. No hormone replacement therapy. Menopause around 49. Clinical stage T2 N1. ER/NC/HER2 negative. Genetic screening showed no deleterious mutation, extended panel testing was performed by [facility]. She started neoadjuvant treatment with pembrolizumab along with weekly carboplatin and Taxol on 12/04/21 as per Keynote- 522 data. Post treatment ultrasound and mammogram of the left breast showed decrease in size of breast mass, measuring 1.3 x 1 cm compared to 2.6 x 2.5 cm. Left axilla ultrasound also showed decrease in size of lymph node now measuring 1.1 x 0.4 cm compared to 1.3 x 0.9 cm. She underwent left breast lumpectomy/lymph node dissection on 06/06/2022, pathology revealed-residual invasive ductal carcinoma with squamous features, MS BR grade 3 negative margins. Tumor size 0.2 cm. Widespread ductal carcinoma in Situ, nuclear grade 2 with necrosis and positive superior margin, very close to multiple other margins. Thirteen lymph nodes negative for metastatic carcinoma. Repeat IHC showed ER/NC and HER2 negative. Pathological stage ypT1a ypN0. DCIS, nuclear grade 2, extensive present in 17 of 21 blocks. She underwent left simple mastectomy on 07/04/2022. Pathology revealed benign tissue without residual tumor. Her left chest wall pacemaker was removed and reinserted in the right abdominal wall so as to facilitate adjuvant radiation therapy to left chest wall. She completed adjuvant pembrolizumab end of 2022. She completed adjuvant radiation therapy in December 2022. CT chest 08/31/2024: Right lung mass measuring 7.9 x 5.8 x 5.2 cm in the right upper lobe. Mediastinal lymphadenopathy with right paratracheal lymph node measuring 1.3 cm and left infrahilar node measuring 1.3 cm. Bronchoscopy and biopsy of left upper lobe mass performed 09/14/2024 revealed squamous cell carcinoma, moderately differentiated. Similar morphologic appearance to her breast cancer histology. ER/NC negative HER2 pending. PD-L1 TPF 3%, CPS 4. She had CT brain with and without contrast on 09/03/2024 which showed 10 mm in enhancing lesion in the right frontal lobe with adjacent vasogenic edema concerning for metastatic disease. She has been started on dexamethasone 2 mg t.i.d.. She was seen by Dr. Brenner from Neurosurgery as well as radiation oncology at [facility]. Surgery for brain radiation will be deferred given the widely metastatic disease from breast primary. Further solitary brain lesion, she was told that she could get stereotactic radiation therapy. Echocardiogram obtained on 09/24/24 revealed no significant change compared to prior study dated: 05/25/2022. Regional Climate Change Analyst Utilized?: No - Malian Speaking Interval History Interval history: Lupe Thomas is a 68 year old female with metastatic breast cancer diagnosed in 09/04/2024 who presented to emergency department with complaints of chills, fever and acute onset shortness of breath. She was undergoing palliative chemotherapy with Doxil, recently completed stereotactic brain radiation therapy at [facility] for solitary brain metastasis. She presented with progressive generalized weakness but sudden onset of chills and shortness of breath. She did not check temperature at home. Her daughter brought her to emergency department were workup revealed fever up to 102 with tachycardia and respiratory distress. She was hypoxic with O2 sats of 77% on room air. She tested negative for COVID, flu and influenza. Chest x-ray showed right upper lobe mass with airspace opacity consistent with pneumonia in the right middle lobe. She is on oxygen high-flow. She was on broad-spectrum antibiotics including antifungal and PJP coverage. CT angiogram was negative for pulmonary embolism. She feels better today. Review of Systems - Neurologic Reports weakness [facility] Medical History: Medical History (Last Updated 11/03/24 @ 12:20 by Ninoska Alcala, DNP, ME[employer]ER-) Abnormal ultrasound of breast Colon cancer screening Essential hypertension GERD (gastroesophageal reflux disease) Hypercholesteremia Hyperglycemia Lung mass Lymphadenopathy, mediastinal On beta harley at home Pacemaker Onset Date: ~2008 PAF (paroxysmal atrial fibrillation) Pneumonitis Port-A-Cath in place PUD (peptic ulcer disease) Screening for breast cancer Vertigo Family History: Family History (Last Reviewed 10/30/24 @ 13:43 by Reema Her MD) Mother No problems noted. Father No problems noted. Surgical History: Surgical History (Last Reviewed 10/30/24 @ 13:43 by Reema Her MD) History of appendectomy History of cholecystectomy History of left mastectomy Onset Date: 07/04/22 History of lumpectomy of left breast History of lung biopsy History of permanent cardiac pacemaker placement History of tubal ligation Hx of colonoscopy Social History: Social History (Last Reviewed 10/30/24 @ 13:43 by Reema Her MD) Living Situation History: Household Members: Family Housing: House Are you a primary healthcare prof to a significant other at home: No Do you presently have visiting nurse or other home services: No Tobacco History: Patient Tobacco Use Status: Never used Tobacco Tobacco use type: Cigarette e-Cigarette/Vaping Use: Never Used Second Hand Smoke Exposure: No Advance Directives: Advance Directives Date on File: 09/08/24 Occupation Assessmet: service: No Current occupational status: retired 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 Glucose (Glucose Gel 15 Gm Gel..Gram.) 15 gm PO Q15M PRN; Protocol PRN Reason: per Hypoglycemia Standing Ord. Levofloxacin (Levaquin) 750 mg in 150 mls @ 100 mls/hr IV Q24H [facility] Last Infusion: 11/04/24 10:02 Dose: Infused Voriconazole 200 mg/ Sodium (Chloride) 100 mls @ 50 mls/hr IV Q12H [facility] Last Infusion: 11/04/24 07:08 Dose: Infused Insulin Human Lispro (Insulin Lispro 100 Unit/Ml 3 Ml Vial) 0 unit SUBCUT QIDACHS [facility]; Protocol Last Admin: 11/04/24 12:41 Dose: 6 unit Lidocaine/Diphenhydr/Alum/Mg/Simeth (Mag&Al/Sim/Diphenhyd/Lidocaine 10 Ml Oral.Susp) 10 ml PO BID [facility] Last Admin: 11/04/24 08:03 Dose: 10 ml Lisinopril (Lisinopril 10 Mg Tablet) 10 mg PO DAILY [facility]; Protocol On Hold: 10/30/24 14:22 Last Admin: 10/30/24 09:14 Dose: Not Given Magnesium Hydroxide (Milk Of Magnesia 30 Ml Oral.Susp) 30 ml PO DAILY PRN PRN Reason: Constipation Last Admin: 11/02/24 08:47 Dose: 30 ml Melatonin (Melatonin 3 Mg Tablet) 6 mg PO BEDTIME PRN PRN Reason: Insomnia Methylprednisolone Sodium Succinate (Methylprednisolone Sod Succ 125 Mg/2 Ml Vial) 80 mg IVPUSH Q6H [facility] Last Admin: 11/04/24 12:39 Dose: 80 mg Metoprolol Tartrate (Metoprolol Tartrate 50 Mg Tablet) 50 mg PO BID [facility]; Protocol Last Admin: 11/04/24 08:03 Dose: 50 mg Morphine Sulfate (Morphine Sulfate 4 Mg/Ml Cartridge) 4 mg IVPUSH Q4H PRN; Protocol PRN Reason: Pain, Severe (Pain Scale 7-10) Last Admin: 11/04/24 13:15 Dose: 4 mg Omeprazole (Omeprazole 40 Mg Capsule.Dr) 40 mg PO DAILY@0630 [facility] Last Admin: 11/04/24 04:51 Dose: 40 mg Oxycodone HCl (Oxycodone Hcl Immed Release 5 Mg Tablet) 5 mg PO BEDTIME [facility] Last Admin: 11/03/24 22:09 Dose: 5 mg Polyethylene Glycol (Polyethylene Glycol 3350 17 Gm Powd.Pack) 17 gm PO BEDTIME [facility] Last Admin: 11/03/24 22:09 Dose: 17 gm Pravastatin Sodium (Pravastatin Sodium 40 Mg Tablet) 40 mg PO DAILY [facility] Last Admin: 11/04/24 08:03 Dose: 40 mg Prochlorperazine Edisylate (Prochlorperazine Edisylate 10 Mg/2 Ml Vial) 5 mg IVPUSH Q6H PRN PRN Reason: Nausea Last Admin: 11/04/24 08:02 Dose: 5 mg Prochlorperazine Edisylate (Prochlorperazine Edisylate 10 Mg/2 Ml Vial) 5 mg IVPUSH Q6H PRN PRN Reason: Nausea Last Admin: 11/03/24 09:47 Dose: 5 mg Rivaroxaban (Rivaroxaban 20 Mg Tablet) 20 mg PO DAILY [facility] Last Admin: 11/04/24 08:03 Dose: 20 mg Senna/Docusate Sodium (Sennosides/Docusate Sodium Tablet) 1 tab PO BID PRN PRN Reason: Constipation Sodium Chloride (0.9 % Sodium Chloride Flush 3 Ml Syringe) 3 ml IVFLUSH QSHIFT [facility] Last Admin: 11/04/24 08:05 Dose: 3 ml Home Medications ?Medication ?Instructions ?Recorded ?Confirmed ?Type dexamethasone 2 mg tablet 2 mg PO BEDTIME 10/21/24 10/27/24 History Magic Mouthwash 10 ml PO BID 10/27/24 10/27/24 History Diphen/Nystat/Antacid 1:1:1 240 mL suspension acetaminophen 325 mg tablet 650 mg PO Q6H PRN Pain 10/27/24 10/27/24 History oxycodone 5 mg tablet 5 mg PO BEDTIME 10/27/24 10/27/24 History Allergies Allergy/AdvReac Type Severity Reaction Status Date / Time latex (LATEX) Allergy Intermediate RASH WITH Verified 10/27/24 07:24 CONTACT Exam Vital signs: Vital Signs Temp 97.2 F 11/04/24 11:34 Pulse 84 11/04/24 11:34 Resp 20 11/04/24 11:34 BP 96/53 L 11/04/24 11:34 Pulse Ox 94 11/04/24 11:34 O2 Del Method High Flow Nasal Cannula 11/04/24 11:34 O2 Flow Rate 50 11/04/24 11:34 FiO2 70 11/04/24 11:34 Intake & Output 11/03/24 11/04/24 11/04/24 18:59 06:59 18:59 Intake Total 1075.333 / 1415.333 340 / 1415.333 250 / 250 Output Total 400 / 400 Balance 675.333 / 1015.333 340 / 1015.333 250 / 250 Urine Output (Average ml/kg/hr) 0.64 0.53 0.53 Intake: Intake, Oral Amount 480 / 720 240 / 720 Intake, IV Amount 595.333 / 695.333 100 / 695.333 250 / 250 Voriconazole 200 mg In 0.9 % 100 / 200 100 / 200 100 / 100 Sodium Chloride 100 ml @ 50 mls /hr IV Q12H [facility] Rx#:[id number] levoFLOXacin/D5W 750 mg In 150 150 / 150 150 / 150 ml @ 100 mls/hr IV Q24H [facility] Rx# :[id number] 0.9 % Sodium Chloride 1,000 ml 345.333 / 345.333 @ 80 mls/hr IVCONT .[id number] [facility] Rx#:[id number] Output: Output, Urine Amount 400 / 400 Other: Lunch % Eaten 50% Dinner % Eaten 75% Number of Unmeasured Voids 1 Last Bowel Movement 10/27/24 10/27/24 Weight 62.5 kg Weight 62.5 kg BMI result Body Mass Index 24.4 - Constitutional Present: no acute distress - Routine HEENT Exam Head: Present: normal inspection - Routine Respiratory Exam Present: CTAB - Routine Cardiovascular Exam Cardiovascular: Present: RRR, S1, S2 - Routine Abdominal Exam Present: soft - Routine Extremities Exam Absent: pedal edema - Routine Skin Exam Present: intact - Routine Neurological Exam Present: alert, oriented X3 Data - Labs CBC & Chem 7: 11/04/24 07:29 11/04/24 10:22 - Imaging Radiologist's impression: ITS Impressions Chest X-Ray 10/27/24 06:57 IMPRESSION: 1. Known right upper lobe mass. 2. Airspace opacity in the right middle lobe, consistent with pneumonia. Electronically signed by: Nahum Solano MD 10/27/2024 08:11 AM EDT RP Chest CTA 10/27/24 14:53 IMPRESSION: 1. No evidence of pulmonary emboli. 2. Known 5.4 x 5.9 x 5.2 cm right upper lobe mass. 2. Diffuse confluent bilateral airspace opacities. Differential diagnostic considerations include pulmonary edema, diffuse pneumonia, or hemorrhage. Clinical correlation is recommended. Electronically signed by: Nahum Solano MD 10/27/2024 03:21 PM EDT RP Chest X-Ray 11/02/24 10:17 IMPRESSION: 1. Lines and tubes in stable position. 2. No significant interval change in the appearance of the thorax. Electronically signed by: Minor Sim MD 11/02/2024 11:00 AM EDT RP Chest X-Ray 11/04/24 08:35 IMPRESSION: 1. Lines and tubes in stable position. 2. No significant interval change in the appearance of the thorax. Electronically signed by: Minor Sim MD 11/04/2024 08:51 AM EDT RP Assessment and Plan Patient Active problem list reviewed?: Yes (1) Invasive ductal carcinoma of left breast Problem details: Status post mastectomy Status: Chronic Assessment and plan: 1. This is a 69-year-old woman with metastatic left breast invasive ductal carcinoma (triple negative), coronary artery disease, atrial fibrillation on anticoagulation, on palliative chemotherapy presenting with acute hypoxic respiratory failure secondary to multifocal pneumonia. CT angiogram performed 10/27/2024 shows no evidence of PE, known 5.9 x 5.4 cm right upper lobe mass and diffuse confluent bilateral airspace opacities. Differential diagnostic considerations included pulmonary edema, diffuse pneumonia or hemorrhage. She was on cefepime and vancomycin. Blood cultures were negative. Leukocytosis probably secondary to steroids and infection. She was developed dilutional anemia, closely monitor. She recently completed stereotactic brain radiation therapy and is on dexamethasone taper. Decrease dexamethasone to 1 mg daily. 2. Oral mucositis secondary to chemotherapy. Continue with magic mouthwash oral rinses and Diflucan. 3. Atrial fibrillation. She is on Xarelto and metoprolol. As recommended by Cardiology, resume diltiazem once blood pressure stabilizes. Recently performed echocardiogram shows normal LV function. 4. Pneumonia/hypoxemia. She has had recurrent fever and hypotension. She was back on high-flow oxygen. Chest x-ray shows continued patchy bilateral infiltrates, no change or improvement noted on x-ray today. She is on Levaquin, Bactrim. Voriconazole also added since 11/02/2024. She is on methylprednisolone 80 mg IV q.6. 5. Hyponatremia secondary to SIADH. She is on sodium tablets and restriction. She feels better today after her sodium has been corrected. - Time Spent With Patient Time Spent with Patient (in minutes): 10
[2024-11-04 15:55] LABS: Anion Gap 14 (12-20); Blood Urea Nitrogen 50 mg/dL (9-16); Calcium 9.1 mg/dL (8.4-10.2); Carbon Dioxide 21 mmol/L (22-29); Chloride 97 mmol/L (96-108); Creatinine Clr Calc Pharmacy 53.4; Estimated Glomerular Filt Rate > 60; Potassium 3.7 mmol/L (3.3-5.1); Sodium 128 mmol/L (135-145)
[2024-11-04 15:58] LABS: Glucose, Whole Blood 201 mg/dL (60-115)
--- NOTE | 2024-11-04 17:18 | HO.PM.IMPN ---
Subjective Subjective Date of Service: 11/04/24 Interval History: Unable to tolerate out of bed yesterday Nausea better controlled, has been eating and drinking some Dysphagia mildly better SOB mildly better, though still on high-flow Repeat CXR similar to previous Sodium 119 yesterday, today 127 Review of Systems Review of Systems: Yes all other systems are reviewed and are negative Physical Exam Exam: Exam: General: AOx3, high-flow on, able to speak in full sentences. More awake and alert Resp: CTA bilaterally CVS: Irregularly irregular rhythm. No murmurs GI: Soft, NT, no distention Skin: Warm, dry Neuro: Cranial nerves II-XII grossly intact bilaterally. Motor grossly intact bilaterally Extremities: No edema Psych: Appropriate affect Vital Signs: Vital Signs: Last Vital Signs Temp 97.7 F 11/04/24 15:26 Pulse 72 11/04/24 15:26 Resp 20 11/04/24 15:26 BP 94/51 L 11/04/24 15:26 Pulse Ox 92 11/04/24 15:26 O2 Del Method High Flow Nasal C annula 11/04/24 15:26 O2 Flow Rate 50 11/04/24 15:26 FiO2 65 11/04/24 15:26 Oxygen Flow Rate 55 11/01/24 07:43 BMI result Body Mass Index 24.4 Objective Data Active Medications Acetaminophen (Acetaminophen 325 Mg Tablet) 650 mg PO Q6H PRN PRN Reason: Pain, Mild 1-3,fever,headache Last Admin: 11/02/24 08:47 Dose: 650 mg Documented By: CRISTINA Bisacodyl (Bisacodyl 10 Mg Supp.Rect) 10 mg IA BEDTIME PRN PRN Reason: Constipation Calcium Carbonate (Calcium Carbonate 750 Mg Tab.Chew) 750 mg PO Q4H PRN PRN Reason: Heartburn Dextrose (Dextrose 50 % 25 Gm/50 Ml Syringe) 25 gm IVPUSH Q15M PRN; Protocol PRN Reason: per Hypoglycemia Standing Ord. Glucose (Glucose Gel 15 Gm Gel..Gram.) 15 gm PO Q15M PRN; Protocol PRN Reason: per Hypoglycemia Standing Ord. Levofloxacin (Levaquin) 750 mg in 150 mls @ 100 mls/hr IV Q24H CAMELIA Last Infusion: 11/04/24 10:02 Dose: Infused Documented By: JOE Voriconazole 200 mg/ Sodium (Chloride) 100 mls @ 50 mls/hr IV Q12H [facility] Last Infusion: 11/04/24 07:08 Dose: Infused Documented By: MICHELLE Insulin Human Lispro (Insulin Lispro 100 Unit/Ml 3 Ml Vial) 0 unit SUBCUT QIDACHS [facility]; Protocol Last Admin: 11/04/24 12:41 Dose: 6 unit Documented By: JOE Lidocaine/Diphenhydr/Alum/Mg/Simeth (Mag&Al/Sim/Diphenhyd/Lidocaine 10 Ml Oral.Susp) 10 ml PO BID [facility] Last Admin: 11/04/24 08:03 Dose: 10 ml Documented By: JOE Lisinopril (Lisinopril 10 Mg Tablet) 10 mg PO DAILY [facility]; Protocol On Hold: 10/30/24 14:22 Last Admin: 10/30/24 09:14 Dose: Not Given Documented By: CRISTINA Non-Admin Reason: Physician Held Med Magnesium Hydroxide (Milk Of Magnesia 30 Ml Oral.Susp) 30 ml PO DAILY PRN PRN Reason: Constipation Last Admin: 11/02/24 08:47 Dose: 30 ml Documented By: CRISTINA Melatonin (Melatonin 3 Mg Tablet) 6 mg PO BEDTIME PRN PRN Reason: Insomnia Methylprednisolone Sodium Succinate (Methylprednisolone Sod Succ 125 Mg/2 Ml Vial) 80 mg IVPUSH Q6H [facility] Last Admin: 11/04/24 12:39 Dose: 80 mg Documented By: JOE Metoprolol Tartrate (Metoprolol Tartrate 50 Mg Tablet) 50 mg PO BID [facility]; Protocol Last Admin: 11/04/24 08:03 Dose: 50 mg Documented By: JOE Morphine Sulfate (Morphine Sulfate 4 Mg/Ml Cartridge) 4 mg IVPUSH Q4H PRN; Protocol PRN Reason: Pain, Severe (Pain Scale 7-10) Last Admin: 11/04/24 13:15 Dose: 4 mg Documented By: JOE Omeprazole (Omeprazole 40 Mg Capsule.Dr) 40 mg PO DAILY@0630 [facility] Last Admin: 11/04/24 04:51 Dose: 40 mg Documented By: MICHELLE Oxycodone HCl (Oxycodone Hcl Immed Release 5 Mg Tablet) 5 mg PO BEDTIME [facility] Last Admin: 11/03/24 22:09 Dose: 5 mg Documented By: MICHELLE Polyethylene Glycol (Polyethylene Glycol 3350 17 Gm Powd.Pack) 17 gm PO BEDTIME [facility] Last Admin: 11/03/24 22:09 Dose: 17 gm Documented By: MICHELLE Pravastatin Sodium (Pravastatin Sodium 40 Mg Tablet) 40 mg PO DAILY [facility] Last Admin: 11/04/24 08:03 Dose: 40 mg Documented By: JOE Prochlorperazine Edisylate (Prochlorperazine Edisylate 10 Mg/2 Ml Vial) 5 mg IVPUSH Q6H PRN PRN Reason: Nausea Last Admin: 11/04/24 08:02 Dose: 5 mg Documented By: JOE Prochlorperazine Edisylate (Prochlorperazine Edisylate 10 Mg/2 Ml Vial) 5 mg IVPUSH Q6H PRN PRN Reason: Nausea Last Admin: 11/03/24 09:47 Dose: 5 mg Documented By: PRIYANKA Rivaroxaban (Rivaroxaban 20 Mg Tablet) 20 mg PO DAILY [facility] Last Admin: 11/04/24 08:03 Dose: 20 mg Documented By: JOE Senna/Docusate Sodium (Sennosides/Docusate Sodium Tablet) 1 tab PO BID PRN PRN Reason: Constipation Sodium Chloride (0.9 % Sodium Chloride Flush 3 Ml Syringe) 3 ml IVFLUSH QSHIFT [facility] Last Admin: 11/04/24 15:06 Dose: Not Given Documented By: JOE Non-Admin Reason: Previously Administered Labs 11/04/24 07:29 11/04/24 15:21 Labs: Laboratory Results - last 24 hr 11/03/24 11/03/24 11/04/24 19:26 20:59 01:38 MCV MCH MCHC RDW Plt Count MPV Absolute Nucleated RBC Nucleated RBC % (auto) Hold Purple Top Anion Gap 16 14 Estim Creat Clear Calc 46.9 53.3 Estimated GFR > 60 > 60 POC Glucose 225 H Random Glucose 229 H 131 H Calcium 8.6 9.1 Total Bilirubin AST ALT Alkaline Phosphatase Total Protein Albumin 11/04/24 11/04/24 11/04/24 07:29 07:37 10:22 MCV 85.3 MCH 30.4 MCHC 35.7 H RDW 18.1 H Plt Count 280 MPV 8.4 L Absolute Nucleated RBC 0.020 H Nucleated RBC % (auto) 0.1 Hold Purple Top SEE NOTE Anion Gap 16 15 Estim Creat Clear Calc 53.4 52.1 Estimated GFR > 60 > 60 POC Glucose 127 H Random Glucose 131 H 304 H Calcium 9.1 9.1 Total Bilirubin 0.3 AST 38 H ALT 17 Alkaline Phosphatase 167 H Total Protein 6.1 L Albumin 3.4 L 11/04/24 11/04/24 11/04/24 11:31 15:21 15:52 MCV MCH MCHC RDW Plt Count MPV Absolute Nucleated RBC Nucleated RBC % (auto) Hold Purple Top Anion Gap 14 Estim Creat Clear Calc 53.4 Estimated GFR > 60 POC Glucose 262 H 201 H Random Glucose 200 H Calcium 9.1 Total Bilirubin AST ALT Alkaline Phosphatase Total Protein Albumin Assessment and Plan (1) Acute hypoxic respiratory failure: Status: Acute Plan Pt is a 68-year-old female with a PMH significant for stage IV breast cancer with mets to the brain on chemoradiation therapy follows with Dr. Mcgill, persistent AFib on Xarelto, [id number] type 2 diabetes,?HTN, HLD, and GERD who presents to the ED with?shaking chills, headache, cough, and SOB upon awakening from sleep at 04:00 this morning. Pt is admitted to the hospital for treatment and further evaluation of acute hypoxic respiratory failure in the setting of pneumonia with sepsis in an immunocompromised pt. Acute hypoxic respiratory failure in the setting of pneumonia with sepsis in an immunocompromised pt; concern for PJP Pt with rigors, SOB, cough, CXR showing right middle lobe opacity consistent with pneumonia, initialy desatting into the 70s on RA CTA negative for PE, but showing diffuse confluent bilateral airspace opacities concerning for pulmonary edema vs diffuse pneumonia vs hemorrhage Met sepsis criteria with fever, tachycardia, tachypnea, leukocytosis; lactic acid likely falsely elevated due to rigors Was transferred to ICU on 10/28 on BiPAP due to flash pulmonary edema, treated with Lasix IV and transferred back to hospital floor on 10/29 Has repeat episode of respiratory distress on evening of 10/29 requiring rescue BiPAP though stayed on the hospital floor Initially treated with vancomycin and cefepime x3 days; vanc stopped as MRSA swab negative then with levofloxacin and bactrin 15mg/kg in 3 divided doses for possible pneumocystis pneumonia, per ID recommendations however given hyponatremia, bactrim was dced on 11/03 Pt currently on high-flow, wean as tolerated Infectious disease following seen by pulm, not a candidate for bronch , [facility] voriconazole cryptococcal Ag, b 2 glycoprotein and resp pathogen panel ordered remains on decadron lasix decreased to 20 mg daily, as she appears dry on exam repeat CXR today no change from before Hyponatremia: acute on chronic likely SIADH, renal consulted urea and salt tabs yesterday, stopped today due to slow correction close monitoring of Na free water fluid restriction 1.2L; ok to drink Ensure and broths Placed on D5W, will dc once sodium 127 or lower Fevers resolved Has continued to spike fevers up to 102.6 despite being on vanc and cefepime ID consulted, started on Bactrim for possible pneumocystis jiroveci pmeumonia,however dced due to hyponatremia today Will check sputum culture, Pneumocystis jiroveci PCR; initial sample contaminated labs pending Hypotension bp borderline Diltiazem discontinued, will treat with albumin lasix dced today metoprolol as BP allows Monitor BP closely Pulmonary edema Initially treated with Lasix 40mg IV daily; switch to 20 mg daily thereafter and now dced Cardiology consulted Persistent AFib with RVR Initially presented with HR in 130s-140s Given diltiazem 15 mg IV and again on the floor on 10/29 for tachycardia Diltiazem stopped Continue Xarelto, metoprolol Acute lactic acidosis, resolved Initial lactic acid 8.1 with repeat normalized At 1.7 secondary to rigors, not severe sepsis Oral mucositis Secondary to chemotherapy Continue Magic Mouthwash Received Fluconazole 50 mg daily x3 days Anemia of chronic disease Repeat CBC showed hgb drop from 10.0-->8.0; has since been stable around 8.8 Likely delusional from IVF Monitor CBC Hx of breast cancer with metastasis to brain Pt given stress dose of hydrocortisone in the ED Reduce dexamethasone to 1mg daily Oncology consulted, appreciate [facility], [place] HTN BP has been soft, hold lisinopril [id number] type [address] on sliding scale insulin, diabetic diet HLD Continue statin GERD Continue PPI DNR/DNI DVT Prophylaxis: On Xarelto OMN: acute hypoxia, acute hyponatremia, Quality Stroke Does the patient have a stroke diagnosis?: No VTE Prior VTE?: No VTE Risk Level:: Medical - moderate - high VTE Device Contraindication: Treatment Not Indicated VTE Drug Contraindication: N/A - Med Ordered
[2024-11-04] MEDS: Voriconazole 200 MG in 0.9 % Sodium Chloride 100 ML 100 MG IV (17:45)
[2024-11-04 18:49] LABS: Anion Gap 15 (12-20); Blood Urea Nitrogen 49 mg/dL (9-16); Calcium 9.0 mg/dL (8.4-10.2); Carbon Dioxide 19 mmol/L (22-29); Chloride 95 mmol/L (96-108); Creatinine Clr Calc Pharmacy 49.7; Estimated Glomerular Filt Rate > 60; Potassium 4.3 mmol/L (3.3-5.1); Sodium 125 mmol/L (135-145)
[2024-11-04 20:34] LABS: Glucose, Whole Blood 371 mg/dL (60-115)
[2024-11-04] MEDS: oxyCODONE HCl Immed Release 5 MG TABLET PO (21:31)
[2024-11-05] VITALS (15 sets, daily range): BP systolic 91–130; BP diastolic 44–78; PULSE 61–95; RESP 12–22; TEMP 36–36.7; O2SAT 91–99; BMI 19.7
[2024-11-05] MEDS: 0.9 % Sodium Chloride Flush 3 ML SYRINGE IVFLUSH ×2 (01:45→23:42)
[2024-11-05] MEDS: Voriconazole 200 MG in 0.9 % Sodium Chloride 100 ML 100 MG IV ×2 (06:22→17:39)
[2024-11-05 07:27] LABS: Glucose, Whole Blood 207 mg/dL (60-115)
[2024-11-05] MEDS: Mag&Al/Sim/Diphenhyd/Lidocaine 10 ML ORAL.SUSP PO ×2 (08:33→21:30)
--- NOTE | 2024-11-05 09:59 | MHC.CM.PN ---
CM MET W/PT'S DTR YONTY AT BEDSIDE TO DISCUSS HOSPICE PER HOSPITALIST, CM DESCRIBED DIFFERENT POSSIBLE HOSPICE DISPOS AND DTR REPORTS PT WOULD WANT TO RETURN HOME, DTR AGREEABLE TO HOSPICE REF [facility] HOWEVER WOULD LIKE TO CONTACT THEM WHEN SHE IS READY SHE IS NOT SURE IF THERE IS ANYTHING ELSE WE CAN DO FOR PT WHILE INPT. PT DOES REMAIN ON HI FLOW O2, CM WILL CONT TO FOLLOW.
[2024-11-05 10:15] LABS: Anion Gap 15 (12-20); Blood Urea Nitrogen 41 mg/dL (9-16); Calcium 8.9 mg/dL (8.4-10.2); Carbon Dioxide 20 mmol/L (22-29); Chloride 98 mmol/L (96-108); Creatinine Clr Calc Pharmacy 55.5; Estimated Glomerular Filt Rate > 60; Potassium 4.2 mmol/L (3.3-5.1); Sodium 129 mmol/L (135-145); Uric Acid 5.3 mg/dL (2.4-5.7)
--- NOTE | 2024-11-05 10:45 | P.PNNP_ITS ---
Subjective Subjective Date of Service: 11/05/24 Interval history: Here with pneumonia in setting stage 4 breast cancer s/p, immunosuppressed state from treatment. Following for hyponatremia. patient has been following 1.2L/24 hour free water restriction for last day, D5W to slow rate of serum sodium correction was stopped yesterday afternoon. Serum sodium is 129 this a.m., up from 125 yesterday on fluid restriction. urine osm 298, urine sodium 85- will re-check urine sodium and urine osm today to reassess Family reports patient is very tired today- she is sleeping in bed. Denies specific changes/concern. Physical Exam 2 Vital Signs: Vital Signs: Last Vital Signs Temp 96.9 F 11/05/24 11:37 Pulse 77 11/05/24 11:37 Resp 16 11/05/24 11:37 BP 96/50 L 11/05/24 11:37 Pulse Ox 91 L 11/05/24 11:37 O2 Del Method High Flow Nasal C annula 11/05/24 11:37 O2 Flow Rate 45 11/05/24 11:37 FiO2 50 11/05/24 11:37 Oxygen Flow Rate 55 11/01/24 07:43 BMI result Body Mass Index 19.7 Const: General: no acute distress, alert and awake Resp: Auscultation: wheezes Cardio: Rate: regular rate Rhythm: regular rhythm Heart sounds: S1 normal heart sound present and S2 normal heart sound present GI: Palpation (GI): Soft to palpation and nontender Skin: Rashes: no rashes Extrem: General: No edema Objective Data Labs 11/04/24 07:29 11/05/24 09:38 Labs: Laboratory Results - last 24 hr 11/04/24 11/04/24 11/04/24 15:21 15:52 18:12 Sodium 128 L 125 L Potassium 3.7 4.3 Chloride 97 95 L Carbon Dioxide 21 L 19 L Anion Gap 14 15 BUN 50 H 49 H Creatinine 0.81 0.87 Estim Creat Clear Calc 53.4 49.7 Estimated GFR > 60 > 60 POC Glucose 201 H Random Glucose 200 H 321 H Uric Acid Calcium 9.1 9.0 Urine Color Urine Appearance Urine pH Ur Specific [place] Urine Protein Urine Glucose (UA) Urine Ketones Urine Blood Urine Nitrite Ur Leukocyte Esterase Urine RBC Urine WBC Ur Squamous Epith Cells Urine Bacteria Hyaline Casts Urine Osmolality Ur Random Sodium 11/04/24 11/05/24 11/05/24 20:24 07:22 09:38 Sodium 129 L Potassium 4.2 Chloride 98 Carbon Dioxide 20 L Anion Gap 15 BUN 41 H Creatinine 0.75 Estim Creat Clear Calc 55.5 Estimated GFR > 60 POC Glucose 371 H* 207 H Random Glucose 344 H Uric Acid 5.3 Calcium 8.9 Urine Color Urine Appearance Urine pH Ur Specific [place] Urine Protein Urine Glucose (UA) Urine Ketones Urine Blood Urine Nitrite Ur Leukocyte Esterase Urine RBC Urine WBC Ur Squamous Epith Cells Urine Bacteria Hyaline Casts Urine Osmolality Ur Random Sodium 11/05/24 11/05/24 11/05/24 09:51 11:28 14:00 Sodium Potassium Chloride Carbon Dioxide Anion Gap BUN Creatinine Estim Creat Clear Calc Estimated GFR POC Glucose 238 H Random Glucose Uric Acid Cancelled Calcium Urine Color Yellow Urine Appearance Clear Urine pH 6.5 Ur Specific [place] 1.010 Urine Protein Trace Urine Glucose (UA) Negative Urine Ketones Negative Urine Blood Negative Urine Nitrite Negative Ur Leukocyte Esterase Negative Urine RBC 0-2 Urine WBC 0-5 Ur Squamous Epith Cells 0-2 Urine Bacteria None Seen Hyaline Casts 0-2 Urine Osmolality 322 L Ur Random Sodium < 20.0 Microbiology Microbiology Results: Microbiology 10/27/24 07:46 Blood - Venous Blood Culture - Final No growth after 5 days. 10/27/24 08:01 Blood - Venous Blood Culture - Final No growth after 5 days. 10/31/24 Unknown Sputum - Expectorated Gram Stain - Final 10/31/24 Unknown Sputum - Expectorated Sputum Culture - Final Procedures Date of Service Date of Service: 11/05/24 Assessment & Plan Assessment and plan (1) Hyponatremia: Status: Acute Plan Hyponatremia secondary to SIADH with multiple stimulators, including cancer, nausea, pulmonary process, and medications. Improving recommend continuing 1.2L/24 hour fluid restriction. No need for salt tablets or urea powder at this time. Will re-check urine osm and urine sodium to ensure no major changes Antifungal treatments are likely contributing to SIADH, but given patient's overall clinical picture, costs of switching or discontinuing antifungal agents may outweigh the benefits- will manage SIADH with salt tablets and urea powder. recommend daily electrolyte studies Discussed with Dr Woods. Time Spent With Patient Time: Total time managing care of this patient today ____ minutes. Progress Note: Quality Stroke Does the patient have a stroke diagnosis?: No
[2024-11-05 11:34] LABS: Glucose, Whole Blood 238 mg/dL (60-115)
--- NOTE | 2024-11-05 12:38 | P.PNPL_ITS ---
Subjective Subjective Date of Service: 11/05/24 Interval history: The patient was seen on exam. Tired this morning. She did not sleep well last night. High-flow being weaned down slowly. Now down to 50%. Will go ahead and request a chest x-ray. Triggers are high on the high dose Solu-Medrol. She continues on the antifungal and antibacterial regimen. Objective Data Labs 11/04/24 07:29 11/05/24 09:38 Labs: Laboratory Results - last 24 hr 11/04/24 11/04/24 11/04/24 15:21 15:52 18:12 Sodium 128 L 125 L Potassium 3.7 4.3 Chloride 97 95 L Carbon Dioxide 21 L 19 L Anion Gap 14 15 BUN 50 H 49 H Creatinine 0.81 0.87 Estim Creat Clear Calc 53.4 49.7 Estimated GFR > 60 > 60 POC Glucose 201 H Random Glucose 200 H 321 H Uric Acid Calcium 9.1 9.0 11/04/24 11/05/24 11/05/24 20:24 07:22 09:38 Sodium 129 L Potassium 4.2 Chloride 98 Carbon Dioxide 20 L Anion Gap 15 BUN 41 H Creatinine 0.75 Estim Creat Clear Calc 55.5 Estimated GFR > 60 POC Glucose 371 H* 207 H Random Glucose 344 H Uric Acid 5.3 Calcium 8.9 11/05/24 11/05/24 09:51 11:28 Sodium Potassium Chloride Carbon Dioxide Anion Gap BUN Creatinine Estim Creat Clear Calc Estimated GFR POC Glucose 238 H Random Glucose Uric Acid Cancelled Calcium Microbiology Microbiology Results: Microbiology 10/27/24 07:46 Blood - Venous Blood Culture - Final No growth after 5 days. 10/27/24 08:01 Blood - Venous Blood Culture - Final No growth after 5 days. 10/31/24 Unknown Sputum - Expectorated Gram Stain - Final 10/31/24 Unknown Sputum - Expectorated Sputum Culture - Final Review of Systems Constitutional: Reports fatigue, Denies fever(s), Reports increased appetite and Reports weakness Reports system reviewed and no additional complaints, except as documented Cardiovascular: Reports no additional cardiovascular complaints and Reports dyspnea on exertion Respiratory: Reports dyspnea on exertion and Denies wheezing Gastrointestinal: Denies abdominal pain Musculoskeletal: Reports muscle weakness Reports weakness Endocrine: Reports fatigue Hematologic/Lymphatic: Denies easy bleeding Allergic/Immunologic: Denies wheezing Physical Exam 2 Vital Signs: Vital Signs: Last Vital Signs Temp 96.9 F 11/05/24 11:37 Pulse 77 11/05/24 11:37 Resp 16 11/05/24 11:37 BP 96/50 L 11/05/24 11:37 Pulse Ox 91 L 11/05/24 11:37 O2 Del Method High Flow Nasal C annula 11/05/24 11:37 O2 Flow Rate 45 11/05/24 11:37 FiO2 50 11/05/24 11:37 Oxygen Flow Rate 55 11/01/24 07:43 BMI result Body Mass Index 19.7 Const: General: comfortable HEENT: Head: Yes normocephalic Neck: Neck: Yes supple Chest: Chest palpation & inspection: normal inspection of the chest Resp: Effort & Inspection: normal respiratory effort Auscultation: rales and diminished lung sounds Cardio: Heart sounds: S1 normal heart sound present and S2 normal heart sound present GI: Palpation (GI): Soft to palpation Skin: General skin exam: no rashes or lesions noted Extrem: General: Yes no clubbing, cyanosis or edema Procedures Date of Service Date of Service: 11/05/24 Assessment and Plan Assessment and plan (1) Acute hypoxic respiratory failure: Status: Acute (2) Pneumonia: Status: Acute (3) Pneumonitis: Status: Acute (4) Lung mass: Problem details: Bronchial washing positive for malignant cells September 2024 Status: Acute Plan continue with Levaquin/Bactrim/Voriconazole continue steroids: Increased to Solumedrol yesterday Continue HF, titrate to keep pox >90 ISS/Aerobika for CPT CXR diuresis as tolerated No bronchoscopy, high risk DNR Time Spent With Patient Time: Total time managing care of this patient today ____ minutes. Progress Note: Quality Stroke Does the patient have a stroke diagnosis?: No
[2024-11-05 14:23] LABS: Appearance Urine Clear; Glucose Urine UA Negative (Negative); PH 6.5 (5.0-9.0); Specific Gravity - Urine 1.010 (1.005-1.025)
--- NOTE | 2024-11-05 15:50 | HO.PM.IMPN ---
Subjective Subjective Date of Service: 11/05/24 Interval History: Feels tired Poor p.o. intake, sore throat Still with SOB Still on high-flow Nausea controlled with meds Review of Systems Review of Systems: Yes all other systems are reviewed and are negative Physical Exam Exam: Exam: General: AOx3, high-flow on, appears tired, weak Resp: CTA bilaterally CVS: Irregularly irregular rhythm. No murmurs GI: Soft, NT, no distention Skin: Warm, dry Neuro: Cranial nerves II-XII grossly intact bilaterally. Motor grossly intact bilaterally Extremities: No edema Psych: Calm, cooperative Vital Signs: Vital Signs: Last Vital Signs Temp 97.9 F 11/05/24 15:29 Pulse 82 11/05/24 15:29 Resp 16 11/05/24 15:29 BP 130/64 11/05/24 15:29 Pulse Ox 95 11/05/24 15:29 O2 Del Method High Flow Nasal C annula 11/05/24 15:29 O2 Flow Rate 35 11/05/24 15:29 FiO2 50 11/05/24 15:29 Oxygen Flow Rate 55 11/01/24 07:43 BMI result Body Mass Index 19.7 Objective Data Active Medications Acetaminophen (Acetaminophen 325 Mg Tablet) 650 mg PO Q6H PRN PRN Reason: Pain, Mild 1-3,fever,headache Last Admin: 11/02/24 08:47 Dose: 650 mg Documented By: CRISTINA Bisacodyl (Bisacodyl 10 Mg Supp.Rect) 10 mg [place] BEDTIME PRN PRN Reason: Constipation Calcium Carbonate (Calcium Carbonate 750 Mg Tab.Chew) 750 mg PO Q4H PRN PRN Reason: Heartburn Dextrose (Dextrose 50 % 25 Gm/50 Ml Syringe) 25 gm IVPUSH Q15M PRN; Protocol PRN Reason: per Hypoglycemia Standing Ord. Glucose (Glucose Gel 15 Gm Gel..Gram.) 15 gm PO Q15M PRN; Protocol PRN Reason: per Hypoglycemia Standing Ord. Levofloxacin (Levaquin) 750 mg in 150 mls @ 100 mls/hr IV Q24H [facility] Last Infusion: 11/05/24 10:25 Dose: Infused Documented By: JOE Voriconazole 200 mg/ Sodium (Chloride) 100 mls @ 50 mls/hr IV Q12H [facility] Last Infusion: 11/05/24 08:54 Dose: Infused Documented By: JOE Insulin Human Lispro (Insulin Lispro 100 Unit/Ml 3 Ml Vial) 0 unit SUBCUT QIDACHS [facility]; Protocol Last Admin: 11/05/24 12:15 Dose: 4 unit Documented By: JOE Lidocaine/Diphenhydr/Alum/Mg/Simeth (Mag&Al/Sim/Diphenhyd/Lidocaine 10 Ml Oral.Susp) 10 ml PO BID [facility] Last Admin: 11/05/24 08:33 Dose: 10 ml Documented By: JOE Lisinopril (Lisinopril 10 Mg Tablet) 10 mg PO DAILY [facility]; Protocol On Hold: 10/30/24 14:22 Last Admin: 10/30/24 09:14 Dose: Not Given Documented By: CRISTINA Non-Admin Reason: Physician Held Med Magnesium Hydroxide (Milk Of Magnesia 30 Ml Oral.Susp) 30 ml PO DAILY PRN PRN Reason: Constipation Last Admin: 11/02/24 08:47 Dose: 30 ml Documented By: CRISTINA Melatonin (Melatonin 3 Mg Tablet) 6 mg PO BEDTIME PRN PRN Reason: Insomnia Methylprednisolone Sodium Succinate (Methylprednisolone Sod Succ 125 Mg/2 Ml Vial) 80 mg IVPUSH Q6H [facility] Last Admin: 11/05/24 12:14 Dose: 80 mg Documented By: JOE Metoprolol Tartrate (Metoprolol Tartrate 50 Mg Tablet) 50 mg PO BID [facility]; Protocol Last Admin: 11/05/24 08:33 Dose: 50 mg Documented By: JOE Morphine Sulfate (Morphine Sulfate 4 Mg/Ml Cartridge) 4 mg IVPUSH Q4H PRN; Protocol PRN Reason: Pain, Severe (Pain Scale 7-10) Last Admin: 11/04/24 13:15 Dose: 4 mg Documented By: JOE Omeprazole (Omeprazole 40 Mg Capsule.Dr) 40 mg PO DAILY@0630 [facility] Last Admin: 11/05/24 06:23 Dose: 40 mg Documented By: MICHELLE Oxycodone HCl (Oxycodone Hcl Immed Release 5 Mg Tablet) 5 mg PO BEDTIME [facility] Last Admin: 11/04/24 21:31 Dose: 5 mg Documented By: CHRISTINEFCDarlyn Polyethylene Glycol (Polyethylene Glycol 3350 17 Gm Powd.Pack) 17 gm PO BEDTIME [facility] Last Admin: 11/04/24 21:33 Dose: Not Given Documented By: MICHELLE Non-Admin Reason: Patient Refused Pravastatin Sodium (Pravastatin Sodium 40 Mg Tablet) 40 mg PO DAILY [facility] Last Admin: 11/05/24 08:33 Dose: 40 mg Documented By: JOE Prochlorperazine Edisylate (Prochlorperazine Edisylate 10 Mg/2 Ml Vial) 5 mg IVPUSH Q6H PRN PRN Reason: Nausea Last Admin: 11/05/24 12:14 Dose: 5 mg Documented By: JOE Prochlorperazine Edisylate (Prochlorperazine Edisylate 10 Mg/2 Ml Vial) 5 mg IVPUSH Q6H PRN PRN Reason: Nausea Last Admin: 11/03/24 09:47 Dose: 5 mg Documented By: PRIYANKA Rivaroxaban (Rivaroxaban 20 Mg Tablet) 20 mg PO DAILY [facility] Last Admin: 11/05/24 08:33 Dose: 20 mg Documented By: JOE Senna/Docusate Sodium (Sennosides/Docusate Sodium Tablet) 1 tab PO BID PRN PRN Reason: Constipation Last Admin: 11/04/24 21:31 Dose: 1 tab Documented By: MICHELLE Sodium Chloride (0.9 % Sodium Chloride Flush 3 Ml Syringe) 3 ml IVFLUSH QSHIFT [facility] Last Admin: 11/05/24 15:06 Dose: Not Given Documented By: JOE Non-Admin Reason: IV Running Labs 11/04/24 07:29 11/05/24 09:38 Labs: Laboratory Results - last 24 hr 11/04/24 11/04/24 11/04/24 15:21 15:52 18:12 Anion Gap 14 15 Estim Creat Clear Calc 53.4 49.7 Estimated GFR > 60 > 60 POC Glucose 201 H Random Glucose 200 H 321 H Uric Acid Calcium 9.1 9.0 Urine Color Urine Appearance Urine pH Ur Specific [place] Urine Protein Urine Glucose (UA) Urine Ketones Urine Blood Urine Nitrite Ur Leukocyte Esterase Urine RBC Urine WBC Ur Squamous Epith Cells Urine Bacteria Hyaline Casts Urine Osmolality Ur Random Sodium 11/04/24 11/05/24 11/05/24 20:24 07:22 09:38 Anion Gap 15 Estim Creat Clear Calc 55.5 Estimated GFR > 60 POC Glucose 371 H* 207 H Random Glucose 344 H Uric Acid 5.3 Calcium 8.9 Urine Color Urine Appearance Urine pH Ur Specific [place] Urine Protein Urine Glucose (UA) Urine Ketones Urine Blood Urine Nitrite Ur Leukocyte Esterase Urine RBC Urine WBC Ur Squamous Epith Cells Urine Bacteria Hyaline Casts Urine Osmolality Ur Random Sodium 11/05/24 11/05/24 11/05/24 09:51 11:28 14:00 Anion Gap Estim Creat Clear Calc Estimated GFR POC Glucose 238 H Random Glucose Uric Acid Cancelled Calcium Urine Color Yellow Urine Appearance Clear Urine pH 6.5 Ur Specific [place] 1.010 Urine Protein Trace Urine Glucose (UA) Negative Urine Ketones Negative Urine Blood Negative Urine Nitrite Negative Ur Leukocyte Esterase Negative Urine RBC 0-2 Urine WBC 0-5 Ur Squamous Epith Cells 0-2 Urine Bacteria None Seen Hyaline Casts 0-2 Urine Osmolality 322 L Ur Random Sodium < 20.0 Assessment and Plan (1) Acute hypoxic respiratory failure: Status: Acute (2) Pneumonia: Status: Acute Plan Pt is a 68-year-old female with a PMH significant for stage IV breast cancer with mets to the brain on chemoradiation therapy follows with Dr. Mcgill, persistent AFib on Xarelto, [id number] type 2 diabetes,?HTN, HLD, and GERD who presents to the ED with?shaking chills, headache, cough, and SOB upon awakening from sleep at 04:00 this morning. Pt is admitted to the hospital for treatment and further evaluation of acute hypoxic respiratory failure in the setting of pneumonia with sepsis in an immunocompromised pt. Acute hypoxic respiratory failure in the setting of pneumonia with sepsis in an immunocompromised pt; concern for PJP or fungal infection Pt with rigors, SOB, cough, CXR showing right middle lobe opacity consistent with pneumonia, initially desatting into the 70s on RA CTA negative for PE, but showing diffuse confluent bilateral airspace opacities concerning for pulmonary edema vs diffuse pneumonia vs hemorrhage Met sepsis criteria with fever, tachycardia, tachypnea, leukocytosis; lactic acid likely falsely elevated due to rigors Was transferred to ICU on 10/28 on BiPAP due to flash pulmonary edema, treated with Lasix IV and transferred back to hospital floor on 10/29 Has repeat episode of respiratory distress on evening of 10/29 requiring rescue BiPAP though stayed on the hospital floor Initially treated with vancomycin and cefepime x3 days; vanc stopped as MRSA swab negative Then with levofloxacin and bactrin 15mg/kg in 3 divided doses for possible pneumocystis pneumonia, per ID recommendations However given hyponatremia, bactrim was dced on 11/03 Pt currently on high-flow, wean as tolerated Infectious disease following seen by pulm, not a candidate for bronch , recc voriconazole and changing decadron to Solu-Medrol cryptococcal Ag, b 2 glycoprotein and resp pathogen panel ordered lasix decreased to 20 mg daily, as she appears dry on exam repeat CXRs no change from before Hyponatremia: acute on chronic likely SIADH, renal consulted urea and salt tabs yesterday, stopped today due to slow correction close monitoring of Na free water fluid restriction 1.2L; ok to drink Ensure and broths Placed on D5W, now dc Fevers, resolved Continued to spike fevers up to 102.6 despite being on vanc and cefepime ID consulted, started on Bactrim for possible pneumocystis jiroveci pmeumonia,however dced due to hyponatremia today Unable to check sputum culture, Pneumocystis jiroveci PCR; initial sample contaminated; pt not a candidate for bronch Hypotension bp occasionally borderline Diltiazem discontinued Metoprolol as BP allows Monitor BP closely Pulmonary edema Initially treated with Lasix 40mg IV daily; switch to 20 mg daily thereafter and now dced Cardiology consulted Persistent AFib with RVR Initially presented with HR in 130s-140s Given diltiazem 15 mg IV and again on the floor on 10/29 for tachycardia Diltiazem stopped Continue Xarelto, metoprolol Acute lactic acidosis, resolved Initial lactic acid 8.1 with repeat normalized At 1.7 secondary to rigors, not severe sepsis Oral mucositis Secondary to chemotherapy Continue Magic Mouthwash Received Fluconazole 50 mg daily x3 days Anemia of chronic disease Repeat CBC showed hgb drop from 10.0-->8.0; has since been stable around 8.8 Likely delusional from IVF Monitor CBC Hx of breast cancer with metastasis to brain Pt given stress dose of hydrocortisone in the ED Reduce dexamethasone to 1mg daily Oncology consulted, appreciate reccs HTN BP has been soft, hold lisinopril [id number] type [address] on sliding scale insulin, diabetic diet HLD Continue statin GERD Continue PPI DNR/DNI DVT Prophylaxis: On Xarelto OMN: acute hypoxia, acute hyponatremia, Quality Stroke Does the patient have a stroke diagnosis?: No VTE Prior VTE?: No VTE Risk Level:: Medical - moderate - high VTE Device Contraindication: Treatment Not Indicated VTE Drug Contraindication: N/A - Med Ordered
[2024-11-05 16:11] LABS: Glucose, Whole Blood 150 mg/dL (60-115)
[2024-11-05 16:28] LABS: Pneumocystis jir Ql PCR DETECTED; Pneumocystis jir source SPUTUM
[2024-11-05 18:43] LABS: Index Value 0.04 (<0.50)
[2024-11-05 21:03] LABS: Glucose, Whole Blood 309 mg/dL (60-115)
[2024-11-05] MEDS: oxyCODONE HCl Immed Release 5 MG TABLET PO (21:26)
[2024-11-06] VITALS (14 sets, daily range): BP systolic 96–148; BP diastolic 53–69; PULSE 70–96; RESP 16–22; TEMP 35.8–36.6; O2SAT 90–95; BMI 24.7; BMI 23.6
[2024-11-06] MEDS: Voriconazole 200 MG in 0.9 % Sodium Chloride 100 ML 50 MG IV (05:59)
[2024-11-06 07:20] LABS: Glucose, Whole Blood 153 mg/dL (60-115)
[2024-11-06] MEDS: 0.9 % Sodium Chloride Flush 3 ML SYRINGE IVFLUSH ×2 (08:51→15:01)
[2024-11-06] MEDS: Mag&Al/Sim/Diphenhyd/Lidocaine 10 ML ORAL.SUSP PO ×2 (08:51→20:24)
--- NOTE | 2024-11-06 09:23 | P.PNPL_ITS ---
Subjective Subjective Date of Service: 11/06/24 Interval history: The patient was seen on exam. Upon review of her results her PCP the sputum was positive for Pneumocystis. Her aspergillus is negative so we can stop the voriconazole. Her cryptococcus is also negative. X-rays have shown stability of disease. She has been able to wean her oxygen down some still high-flow though. She had been taken off the Bactrim because of hyponatremia. However she needs to go back on it FANNY as she is starting to cough a little bit more likely diseases returning. Objective Data Labs 11/04/24 07:29 11/05/24 09:38 Labs: Laboratory Results - last 24 hr 10/31/24 11/02/24 11/05/24 Unknown 14:29 09:38 Hold Purple Top Sodium 129 L Potassium 4.2 Chloride 98 Carbon Dioxide 20 L Anion Gap 15 BUN 41 H Creatinine 0.75 Estim Creat Clear Calc 55.5 Estimated GFR > 60 POC Glucose Random Glucose 344 H Uric Acid 5.3 Calcium 8.9 Urine Color Urine Appearance Urine pH Ur Specific [place] Urine Protein Urine Glucose (UA) Urine Ketones Urine Blood Urine Nitrite Ur Leukocyte Esterase Urine RBC Urine WBC Ur Squamous Epith Cells Urine Bacteria Hyaline Casts Urine Osmolality Ur Random Sodium Pneumocystis Source SPUTUM Pneumocyst jirovecii PCR DETECTED A Aspergillus Ag (EIA) Not Detected Aspergillus Index Value 0.04 11/05/24 11/05/24 11/05/24 09:51 11:28 14:00 Hold Purple Top Sodium Potassium Chloride Carbon Dioxide Anion Gap BUN Creatinine Estim Creat Clear Calc Estimated GFR POC Glucose 238 H Random Glucose Uric Acid Cancelled Calcium Urine Color Yellow Urine Appearance Clear Urine pH 6.5 Ur Specific [place] 1.010 Urine Protein Trace Urine Glucose (UA) Negative Urine Ketones Negative Urine Blood Negative Urine Nitrite Negative Ur Leukocyte Esterase Negative Urine RBC 0-2 Urine WBC 0-5 Ur Squamous Epith Cells 0-2 Urine Bacteria None Seen Hyaline Casts 0-2 Urine Osmolality 322 L Ur Random Sodium < 20.0 Pneumocystis Source Pneumocyst jirovecii PCR Aspergillus Ag (EIA) Aspergillus Index Value 11/05/24 11/05/24 11/06/24 16:07 20:53 07:13 Hold Purple Top Sodium Potassium Chloride Carbon Dioxide Anion Gap BUN Creatinine Estim Creat Clear Calc Estimated GFR POC Glucose 150 H 309 H 153 H Random Glucose Uric Acid Calcium Urine Color Urine Appearance Urine pH Ur Specific [place] Urine Protein Urine Glucose (UA) Urine Ketones Urine Blood Urine Nitrite Ur Leukocyte Esterase Urine RBC Urine WBC Ur Squamous Epith Cells Urine Bacteria Hyaline Casts Urine Osmolality Ur Random Sodium Pneumocystis Source Pneumocyst jirovecii PCR Aspergillus Ag (EIA) Aspergillus Index Value 11/06/24 09:03 Hold Purple Top SEE NOTE Sodium Potassium Chloride Carbon Dioxide Anion Gap BUN Creatinine Estim Creat Clear Calc Estimated GFR POC Glucose Random Glucose Uric Acid Calcium Urine Color Urine Appearance Urine pH Ur Specific [place] Urine Protein Urine Glucose (UA) Urine Ketones Urine Blood Urine Nitrite Ur Leukocyte Esterase Urine RBC Urine WBC Ur Squamous Epith Cells Urine Bacteria Hyaline Casts Urine Osmolality Ur Random Sodium Pneumocystis Source Pneumocyst jirovecii PCR Aspergillus Ag (EIA) Aspergillus Index Value Microbiology Microbiology Results: Microbiology 10/27/24 07:46 Blood - Venous Blood Culture - Final No growth after 5 days. 10/27/24 08:01 Blood - Venous Blood Culture - Final No growth after 5 days. 10/31/24 Unknown Sputum - Expectorated Gram Stain - Final 10/31/24 Unknown Sputum - Expectorated Sputum Culture - Final Review of Systems Constitutional: Reports fatigue, Denies fever(s), Reports increased appetite and Reports weakness Reports system reviewed and no additional complaints, except as documented Cardiovascular: Reports no additional cardiovascular complaints and Reports dyspnea on exertion Respiratory: Reports dyspnea on exertion and Denies wheezing Gastrointestinal: Denies abdominal pain Musculoskeletal: Reports muscle weakness Reports weakness Endocrine: Reports fatigue Hematologic/Lymphatic: Denies easy bleeding Allergic/Immunologic: Denies wheezing Physical Exam 2 Vital Signs: Vital Signs: Last Vital Signs Temp 96.9 F 11/06/24 07:09 Pulse 70 11/06/24 08:49 Resp 22 H 11/06/24 07:54 BP 116/54 L 11/06/24 08:49 Pulse Ox 91 L 11/06/24 07:09 O2 Del Method High Flow Nasal C annula 11/06/24 07:09 O2 Flow Rate 35 11/06/24 07:09 FiO2 50 11/06/24 07:09 Oxygen Flow Rate 55 11/01/24 07:43 BMI result Body Mass Index 24.7 Const: General: comfortable HEENT: Head: Yes normocephalic Neck: Neck: Yes supple Chest: Chest palpation & inspection: normal inspection of the chest Resp: Effort & Inspection: normal respiratory effort Auscultation: no rales and diminished lung sounds Cardio: Heart sounds: S1 normal heart sound present and S2 normal heart sound present GI: Palpation (GI): Soft to palpation Skin: General skin exam: no rashes or lesions noted Extrem: General: Yes no clubbing, cyanosis or edema Procedures Date of Service Date of Service: 11/06/24 Assessment and Plan Assessment and plan (1) Acute hypoxic respiratory failure: Status: Acute (2) Pneumonia: Status: Acute (3) Pneumonitis: Status: Acute (4) Lung mass: Problem details: Bronchial washing positive for malignant cells September 2024 Status: Acute (5) PCP (pneumocystis jiroveci pneumonia): Status: Acute Plan continue with Levaquin restart Bactrim stop Voriconazole continue Solumedrol Continue HF, titrate to keep pox >90 ISS/Aerobika for CPT CXR diuresis as tolerated DNR Time Spent With Patient Time: Total time managing care of this patient today ____ minutes. Progress Note: Quality Stroke Does the patient have a stroke diagnosis?: No
[2024-11-06 10:05] LABS: Anion Gap 16 (12-20); Blood Urea Nitrogen 30 mg/dL (9-16); Calcium 9.3 mg/dL (8.4-10.2); Carbon Dioxide 20 mmol/L (22-29); Chloride 101 mmol/L (96-108); Creatinine Clr Calc Pharmacy 66.9; Estimated Glomerular Filt Rate > 60; Potassium 4.0 mmol/L (3.3-5.1); Sodium 133 mmol/L (135-145)
[2024-11-06 11:23] LABS: Glucose, Whole Blood 301 mg/dL (60-115)
--- NOTE | 2024-11-06 11:31 | PM.PNNEP ---
Subjective Subjective Date of Service: 11/06/24 Interval history: Here with pneumonia in setting stage 4 breast cancer s/p, immunosuppressed state from treatment. Following for hyponatremia. patient has been following 1.2L/24 hour free water restriction. Serum sodium has improved to 133 this a.m. urine osm remains around 300, urine sodium now <20, was elevated Family reports patient is very tired today- she is sleeping in bed. No more nausea/pain is controlled. Denies pther specific changes/concern. Physical Exam Vital Signs: Vital Signs: Last Vital Signs Temp 96.9 F 11/06/24 07:09 Pulse 70 11/06/24 08:49 Resp 20 11/06/24 11:17 BP 116/54 L 11/06/24 08:49 Pulse Ox 91 L 11/06/24 07:09 O2 Del Method High Flow Nasal C annula 11/06/24 07:09 O2 Flow Rate 35 11/06/24 07:09 FiO2 50 11/06/24 07:09 Oxygen Flow Rate 55 11/01/24 07:43 BMI result Body Mass Index 23.6 Const: General: no acute distress, alert and awake Resp: Auscultation: wheezes Cardio: Rate: regular rate Rhythm: regular rhythm Heart sounds: S1 normal heart sound present and S2 normal heart sound present GI: Palpation (GI): Soft to palpation and nontender Skin: Rashes: no rashes Extrem: General: No edema Objective Data Labs 11/04/24 07:29 11/06/24 09:01 Labs: Laboratory Results - last 24 hr 10/31/24 11/02/24 11/05/24 Unknown 14:29 11:28 Hold Purple Top Sodium Potassium Chloride Carbon Dioxide Anion Gap BUN Creatinine Estim Creat Clear Calc Estimated GFR POC Glucose 238 H Random Glucose Calcium Lactate Dehydrogenase Urine Color Urine Appearance Urine pH Ur Specific [place] Urine Protein Urine Glucose (UA) Urine Ketones Urine Blood Urine Nitrite Ur Leukocyte Esterase Urine RBC Urine WBC Ur Squamous Epith Cells Urine Bacteria Hyaline Casts Urine Osmolality Ur Random Sodium Pneumocystis Source SPUTUM Pneumocyst jirovecii PCR DETECTED A Aspergillus Ag (EIA) Not Detected Aspergillus Index Value 0.04 11/05/24 11/05/24 11/05/24 14:00 16:07 20:53 Hold Purple Top Sodium Potassium Chloride Carbon Dioxide Anion Gap BUN Creatinine Estim Creat Clear Calc Estimated GFR POC Glucose 150 H 309 H Random Glucose Calcium Lactate Dehydrogenase Urine Color Yellow Urine Appearance Clear Urine pH 6.5 Ur Specific [place] 1.010 Urine Protein Trace Urine Glucose (UA) Negative Urine Ketones Negative Urine Blood Negative Urine Nitrite Negative Ur Leukocyte Esterase Negative Urine RBC 0-2 Urine WBC 0-5 Ur Squamous Epith Cells 0-2 Urine Bacteria None Seen Hyaline Casts 0-2 Urine Osmolality 322 L Ur Random Sodium < 20.0 Pneumocystis Source Pneumocyst jirovecii PCR Aspergillus Ag (EIA) Aspergillus Index Value 11/06/24 11/06/24 11/06/24 07:13 09:01 09:03 Hold Purple Top SEE NOTE Sodium 133 L Potassium 4.0 Chloride 101 Carbon Dioxide 20 L Anion Gap 16 BUN 30 H Creatinine 0.70 Estim Creat Clear Calc 66.9 Estimated GFR > 60 POC Glucose 153 H Random Glucose 269 H Calcium 9.3 Lactate Dehydrogenase 456 H Urine Color Urine Appearance Urine pH Ur Specific [place] Urine Protein Urine Glucose (UA) Urine Ketones Urine Blood Urine Nitrite Ur Leukocyte Esterase Urine RBC Urine WBC Ur Squamous Epith Cells Urine Bacteria Hyaline Casts Urine Osmolality Ur Random Sodium Pneumocystis Source Pneumocyst jirovecii PCR Aspergillus Ag (EIA) Aspergillus Index Value 11/06/24 11:19 Hold Purple Top Sodium Potassium Chloride Carbon Dioxide Anion Gap BUN Creatinine Estim Creat Clear Calc Estimated GFR POC Glucose 301 H Random Glucose Calcium Lactate Dehydrogenase Urine Color Urine Appearance Urine pH Ur Specific [place] Urine Protein Urine Glucose (UA) Urine Ketones Urine Blood Urine Nitrite Ur Leukocyte Esterase Urine RBC Urine WBC Ur Squamous Epith Cells Urine Bacteria Hyaline Casts Urine Osmolality Ur Random Sodium Pneumocystis Source Pneumocyst jirovecii PCR Aspergillus Ag (EIA) Aspergillus Index Value Microbiology Microbiology Results: Microbiology 10/27/24 07:46 Blood - Venous Blood Culture - Final No growth after 5 days. 10/27/24 08:01 Blood - Venous Blood Culture - Final No growth after 5 days. 10/31/24 Unknown Sputum - Expectorated Gram Stain - Final 10/31/24 Unknown Sputum - Expectorated Sputum Culture - Final Procedures Date of Service Date of Service: 11/06/24 Assessment & Plan Assessment and plan (1) Hyponatremia: Status: Acute Plan Hyponatremia secondary to SIADH with multiple stimulators, including cancer, nausea, pulmonary process, and medications. Improving- given low urine sodium, SIADH process has resolved for now recommend continuing 1.2L/24 hour free water restriction. She does not have to restrict protein shakes. No need for salt tablets or urea powder at this time. Antifungal treatments are likely contributing to SIADH, but given patient's overall clinical picture, costs of switching or discontinuing antifungal agents may outweigh the benefits- will manage SIADH with salt tablets if needed. recommend daily electrolyte studies Given low urine sodium and improved serum sodium (indicating resolution of SIADH), will sign off. Happy to follow up if any changes/new concerns arise. Discussed with Dr Woods. Time Spent With Patient Time: Total time managing care of this patient today ____ minutes. Progress Note: Quality Stroke Does the patient have a stroke diagnosis?: No
--- NOTE | 2024-11-06 11:48 | MHC.CLN ---
F/U PO INTAKE 50-100% NOTED WT 60.4KG DIET RX: 2000DM RECEIVING ENSURE BID TO PROVIDE 700KCALS, 40G PROTEIN MONITOR PO INTAKE AND ENCOURAGE SUPPLEMENTS
[2024-11-06] MEDS: guaiFENesin DM 100/10/5 ML 5 ML SYRUP PO (11:51)
[2024-11-06] MEDS: TRIMETHOPRIM IV ×2 (11:52→20:22)
[2024-11-06] MEDS: DEXTROSE 5% IV ×2 (11:52→20:22)
[2024-11-06] MEDS: SULFAMETHOXAZOLE IV ×2 (11:52→20:22)
[2024-11-06 13:12] LABS: Procalcitonin 0.07 ng/mL
--- NOTE | 2024-11-06 13:13 | MHC.CM.PN ---
EMR reviewed and per MD rounds, pt is not medically cleared for discharge due to management of acute hypoxic respiratory failure/pneumonia/sepsis also a concern for PJP or fungal infection. Pt remains on hi-flow. Pts daughter to reach out to hospice when they are ready, at this time they are not ready to pursue hospice.
--- NOTE | 2024-11-06 15:07 | HO.PM.IMPN ---
Subjective Subjective Date of Service: 11/06/24 Interval History: c/o dry cough on HFNC 50% fiO2, 35 Lpm sputum PCR for PCP positive Review of Systems Review of Systems: Yes all other systems are reviewed and are negative Physical Exam Vital Signs: Vital Signs: Last Vital Signs Temp 97.0 F 11/06/24 11:33 Pulse 94 11/06/24 11:33 Resp 16 11/06/24 11:33 BP 96/55 L 11/06/24 11:33 Pulse Ox 93 11/06/24 11:33 O2 Del Method High Flow Nasal C annula 11/06/24 11:33 O2 Flow Rate 30 11/06/24 11:33 FiO2 42 11/06/24 11:33 Oxygen Flow Rate 55 11/01/24 07:43 BMI result Body Mass Index 23.6 Gen: ill-appearing HEENT: sclera anicteric, moist mucus membranes Neck: supple Lungs: bilateral inspiratory crackles Heart: irregular, no murmurs Abd: soft, non-tender, non-distended Ext: no edema Skin: warm/well-perfused Neuro: alert and oriented x3, no focal findings Psych: appropriate affect Objective Data Active Medications Acetaminophen (Acetaminophen 325 Mg Tablet) 650 mg PO Q6H PRN PRN Reason: Pain, Mild 1-3,fever,headache Last Admin: 11/06/24 13:27 Dose: 650 mg Documented By: ELISEO Benzonatate (Benzonatate 100 Mg Capsule) 200 mg PO TID PRN PRN Reason: Cough Last Admin: 11/06/24 11:51 Dose: 200 mg Documented By: ELISEO Bisacodyl (Bisacodyl 10 Mg Supp.Rect) 10 mg GA BEDTIME PRN PRN Reason: Constipation Calcium Carbonate (Calcium Carbonate 750 Mg Tab.Chew) 750 mg PO Q4H PRN PRN Reason: Heartburn Dextrose (Dextrose 50 % 25 Gm/50 Ml Syringe) 25 gm IVPUSH Q15M PRN; Protocol PRN Reason: per Hypoglycemia Standing Ord. Glucose (Glucose Gel 15 Gm Gel..Gram.) 15 gm PO Q15M PRN; Protocol PRN Reason: per Hypoglycemia Standing Ord. Guaifenesin/Dextromethorphan (Guaifenesin Dm 100/10/5 Ml 5 Ml Syrup) 5 ml PO Q4H PRN PRN Reason: Cough Last Admin: 11/06/24 11:51 Dose: 5 ml Documented By: ELISEO Trimethoprim/Sulfamethoxazole (300 mg/ Dextrose) 518.75 mls @ 225 mls/hr IV Q8H [facility] Insulin Human Lispro (Insulin Lispro 100 Unit/Ml 3 Ml Vial) 0 unit SUBCUT QIDACHS [facility]; Protocol Last Admin: 11/06/24 11:51 Dose: 8 unit Documented By: ELISEO Levofloxacin (Levofloxacin 750 Mg Tablet) 750 mg PO Q24H [facility] Lidocaine/Diphenhydr/Alum/Mg/Simeth (Mag&Al/Sim/Diphenhyd/Lidocaine 10 Ml Oral.Susp) 10 ml PO BID [facility] Last Admin: 11/06/24 08:51 Dose: 10 ml Documented By: ELISEO Lisinopril (Lisinopril 10 Mg Tablet) 10 mg PO DAILY [facility]; Protocol On Hold: 10/30/24 14:22 Last Admin: 10/30/24 09:14 Dose: Not Given Documented By: CRISTINA Non-Admin Reason: Physician Held Med Magnesium Hydroxide (Milk Of Magnesia 30 Ml Oral.Susp) 30 ml PO DAILY PRN PRN Reason: Constipation Last Admin: 11/02/24 08:47 Dose: 30 ml Documented By: CRISTINA Melatonin (Melatonin 3 Mg Tablet) 6 mg PO BEDTIME PRN PRN Reason: Insomnia Last Admin: 11/05/24 23:41 Dose: 6 mg Documented By: CATIE Methylprednisolone Sodium Succinate (Methylprednisolone Sod Succ 125 Mg/2 Ml Vial) 80 mg IVPUSH Q6H [facility] Last Admin: 11/06/24 11:52 Dose: 80 mg Documented By: ELISEO Metoprolol Tartrate (Metoprolol Tartrate 50 Mg Tablet) 50 mg PO BID [facility]; Protocol Last Admin: 11/06/24 08:49 Dose: 50 mg Documented By: ELISEO Morphine Sulfate (Morphine Sulfate 4 Mg/Ml Cartridge) 4 mg IVPUSH Q4H PRN; Protocol PRN Reason: Pain, Severe (Pain Scale 7-10) Last Admin: 11/06/24 15:01 Dose: 4 mg Documented By: ELISEO Omeprazole (Omeprazole 40 Mg Capsule.Dr) 40 mg PO DAILY@0630 [facility] Last Admin: 11/06/24 06:10 Dose: 40 mg Documented By: CATIE Oxycodone HCl (Oxycodone Hcl Immed Release 5 Mg Tablet) 5 mg PO BEDTIME [facility] Last Admin: 11/05/24 21:26 Dose: 5 mg Documented By: CATIE Polyethylene Glycol (Polyethylene Glycol 3350 17 Gm Powd.Pack) 17 gm PO BEDTIME [facility] Last Admin: 11/05/24 21:30 Dose: Not Given Documented By: CATIE Non-Admin Reason: refused; sennoside instead Pravastatin Sodium (Pravastatin Sodium 40 Mg Tablet) 40 mg PO DAILY [facility] Last Admin: 11/06/24 08:50 Dose: 40 mg Documented By: ELISEO Prochlorperazine Edisylate (Prochlorperazine Edisylate 10 Mg/2 Ml Vial) 5 mg IVPUSH Q6H PRN PRN Reason: Nausea Last Admin: 11/05/24 12:14 Dose: 5 mg Documented By: JOE Prochlorperazine Edisylate (Prochlorperazine Edisylate 10 Mg/2 Ml Vial) 5 mg IVPUSH Q6H PRN PRN Reason: Nausea Last Admin: 11/03/24 09:47 Dose: 5 mg Documented By: PRIYANKA Rivaroxaban (Rivaroxaban 20 Mg Tablet) 20 mg PO DAILY [facility] Last Admin: 11/06/24 08:50 Dose: 20 mg Documented By: ELISEO Senna/Docusate Sodium (Sennosides/Docusate Sodium Tablet) 1 tab PO BID PRN PRN Reason: Constipation Last Admin: 11/06/24 08:49 Dose: 1 tab Documented By: ELISEO Sodium Chloride (0.9 % Sodium Chloride Flush 3 Ml Syringe) 3 ml IVFLUSH QSHIFT [facility] Last Admin: 11/06/24 15:01 Dose: 3 ml Documented By: ELISEO Labs 11/04/24 07:29 11/06/24 09:01 Labs: Laboratory Results - last 24 hr 10/31/24 11/02/24 11/05/24 Unknown 14:29 16:07 Hold Purple Top Anion Gap Estim Creat Clear Calc Estimated GFR POC Glucose 150 H Random Glucose Calcium Lactate Dehydrogenase Procalcitonin Pneumocystis Source SPUTUM Pneumocyst jirovecii PCR DETECTED A Aspergillus Ag (EIA) Not Detected Aspergillus Index Value 0.04 11/05/24 11/06/24 11/06/24 20:53 07:13 09:01 Hold Purple Top Anion Gap 16 Estim Creat Clear Calc 66.9 Estimated GFR > 60 POC Glucose 309 H 153 H Random Glucose 269 H Calcium 9.3 Lactate Dehydrogenase 456 H Procalcitonin 0.07 Pneumocystis Source Pneumocyst jirovecii PCR Aspergillus Ag (EIA) Aspergillus Index Value 11/06/24 11/06/24 09:03 11:19 Hold Purple Top SEE NOTE Anion Gap Estim Creat Clear Calc Estimated GFR POC Glucose 301 H Random Glucose Calcium Lactate Dehydrogenase Procalcitonin Pneumocystis Source Pneumocyst jirovecii PCR Aspergillus Ag (EIA) Aspergillus Index Value Assessment and Plan (1) Acute hypoxic respiratory failure: Status: Acute (2) Pneumonia: Status: Acute Plan d11, 68yo F with 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 on chemotherapy + sterotactic radiation, persistent AF on rivaroxaban, DM2, HTN, HLD, and GERD presenting with rigors, headache, cough, and dyspnea; admitted for hypoxia and sepsis due to pneumonia; transferred to ICU 10/28 on BiPAP due to flash pulmonary edema; diuresed and stepped down to telemetry 10/29 acute hypoxic respiratory failure and sepsis due to PCP pneumonia complicated by pulmonary edema/acute HFpEF - ID + Pulmonology following - resume high-dose IV TMP-SMX [previously discontinued 11/02 due to hypoNa but this may have been from other factors], continue IV methylprednsiolone 80 mg IV q6h per Pulm - completed 3d of vancomycin, MRSA swab negative - levofloxacin 10/31- - serum cryptococcal Ag negative, Aspergillus EIA negative; will d/c voriconazole - supplemental O2, wean from HFNC as tolerated - fever resolved - furosemide discontinued, Cardiology signed off hypoNa, acute/chronic - SIADH resolved now with Efren <20; Nephrology signing off but continue to monitor while on TMP-SMX; off urea, NaCl tabs, and water restriction HTN - continue lisinopril + metoprolol tartrate; diltiazem d/c'ed due to soft BP persistent AF/RVR - diltiazem stopped, continue metoprolol tartrate + rivaroxaban acute lactic acidosis - resolved, not due to sepsis oral mucositis - continue Magic Mouthwash anemia of chronic disease - H+H stable metastatic breast CA - dexamethasone changed to methylprednioslone DM2 - hold MTF, continue correction-dose lispro GERD - PPI VTE ppx - rivaroxaban dispo - TBD In my clinical judgment, the patient requires continued inpatient hospitalization for the following reasons: hypoxia Total time managing care of this patient today: 55 minutes. Quality Stroke Does the patient have a stroke diagnosis?: No VTE Prior VTE?: No VTE Risk Level:: Medical - moderate - high VTE Device Contraindication: Treatment Not Indicated VTE Drug Contraindication: N/A - Med Ordered
[2024-11-06 16:14] LABS: Glucose, Whole Blood 323 mg/dL (60-115)
--- NOTE | 2024-11-06 18:19 | HO.SKINPHOTO ---
Location: Category: Stage: Length: Width: Depth: cm Location: Category: Stage: Length: Width: Depth: cm Location: Category: Stage: Length: Width: Depth: cm Location: Category: Stage: Length: Width: Depth: cm Location: Category: Stage: Length: Width: Depth: cm Location: Category: Stage: Length: Width: Depth: cm
[2024-11-06 20:15] LABS: Glucose, Whole Blood 248 mg/dL (60-115)
[2024-11-06] MEDS: oxyCODONE HCl Immed Release 5 MG TABLET PO (20:21)
[2024-11-07] VITALS (11 sets, daily range): BP systolic 95–127; BP diastolic 49–72; PULSE 54–82; RESP 17–20; TEMP 35.8–36.6; O2SAT 90–96; BMI 24.0
[2024-11-07] MEDS: TRIMETHOPRIM IV ×3 (03:56→19:49)
[2024-11-07] MEDS: SULFAMETHOXAZOLE IV ×3 (03:56→19:49)
[2024-11-07] MEDS: DEXTROSE 5% IV ×3 (03:56→19:49)
[2024-11-07] MEDS: 0.9 % Sodium Chloride Flush 3 ML SYRINGE IVFLUSH ×4 (03:57→20:56)
[2024-11-07 07:26] LABS: Hematocrit 24.0 % (37.0-47.0); Hemoglobin 8.5 g/dl (12.0-16.0); Mean Corpuscular HGB Conc 35.4 g/dl (31.0-35.0); Mean Corpuscular Hemoglobin 30.8 pg (27.0-33.0); Mean Corpuscular Volume 87.0 fL (80.0-98.0); NRBC Abs Auto 0.000 X10*3/uL (0.0-0.012); NRBC Pct Auto 0.0 /100WBC (0.0-0.2); Platelet Count 197 X10*3/uL (160-400); Red Blood Count 2.76 X10*6/uL (4.20-5.50); White Blood Count 26.4 X10*3/uL (4.8-10.8)
[2024-11-07 07:32] LABS: Glucose, Whole Blood 286 mg/dL (60-115)
[2024-11-07] MEDS: Mag&Al/Sim/Diphenhyd/Lidocaine 10 ML ORAL.SUSP PO ×2 (07:49→20:49)
[2024-11-07 07:59] LABS: Anion Gap 15 (12-20); Blood Urea Nitrogen 23 mg/dL (9-16); Calcium 8.6 mg/dL (8.4-10.2); Carbon Dioxide 19 mmol/L (22-29); Chloride 100 mmol/L (96-108); Creatinine Clr Calc Pharmacy 63.7; Estimated Glomerular Filt Rate > 60; Potassium 3.8 mmol/L (3.3-5.1); Sodium 130 mmol/L (135-145)
[2024-11-07] MEDS: Insulin Glargine,Hum.rec.anlog 100 UNIT/ML 10 ML VIAL 8 UNIT SUBCUT (08:43)
--- NOTE | 2024-11-07 10:57 | HO.PM.IMPN ---
Subjective Subjective Date of Service: 11/07/24 Interval History: dyspnea slightly improved, still on HFNC Review of Systems Review of Systems: Yes all other systems are reviewed and are negative Physical Exam Vital Signs: Vital Signs: Last Vital Signs Temp 96.8 F 11/07/24 06:55 Pulse 77 11/07/24 07:49 Resp 18 11/07/24 07:49 BP 120/56 L 11/07/24 07:49 Pulse Ox 92 11/07/24 06:55 O2 Del Method High Flow Nasal C annula 11/07/24 06:55 O2 Flow Rate 30 11/07/24 06:55 FiO2 50 11/07/24 06:55 Oxygen Flow Rate 55 11/01/24 07:43 BMI result Body Mass Index 24.0 Gen: ill-appearing HEENT: sclera anicteric, moist mucus membranes Neck: supple Lungs: bilateral inspiratory crackles Heart: irregular, no murmurs Abd: soft, non-tender, non-distended Ext: no edema Skin: warm/well-perfused Neuro: alert and oriented x3, no focal findings Psych: appropriate affect Objective Data Active Medications Acetaminophen (Acetaminophen 325 Mg Tablet) 650 mg PO Q6H PRN PRN Reason: Pain, Mild 1-3,fever,headache Last Admin: 11/06/24 13:27 Dose: 650 mg Documented By: ELISEO Benzonatate (Benzonatate 100 Mg Capsule) 200 mg PO TID PRN PRN Reason: Cough Last Admin: 11/06/24 11:51 Dose: 200 mg Documented By: ELISEO Bisacodyl (Bisacodyl 10 Mg Supp.Rect) 10 mg AR BEDTIME PRN PRN Reason: Constipation Calcium Carbonate (Calcium Carbonate 750 Mg Tab.Chew) 750 mg PO Q4H PRN PRN Reason: Heartburn Dextrose (Dextrose 50 % 25 Gm/50 Ml Syringe) 25 gm IVPUSH Q15M PRN; Protocol PRN Reason: per Hypoglycemia Standing Ord. Glucose (Glucose Gel 15 Gm Gel..Gram.) 15 gm PO Q15M PRN; Protocol PRN Reason: per Hypoglycemia Standing Ord. Guaifenesin/Dextromethorphan (Guaifenesin Dm 100/10/5 Ml 5 Ml Syrup) 5 ml PO Q4H PRN PRN Reason: Cough Last Admin: 11/06/24 11:51 Dose: 5 ml Documented By: ELISEO Trimethoprim/Sulfamethoxazole (300 mg/ Dextrose) 518.75 mls @ 225 mls/hr IV Q8H [facility] Last Infusion: 11/07/24 06:15 Dose: Infused Documented By: RENETTA Insulin Glargine (Insulin Glargine,Hum.Rec.Anlog 100 Unit/Ml 10 Ml Vial) 8 unit SUBCUT DAILY [facility] Last Admin: 11/07/24 08:43 Dose: 8 unit Documented By: WALDO Insulin Human Lispro (Insulin Lispro 100 Unit/Ml 3 Ml Vial) 0 unit SUBCUT QIDACHS [facility]; Protocol Last Admin: 11/07/24 07:50 Dose: 6 unit Documented By: WALDO Levofloxacin (Levofloxacin 750 Mg Tablet) 750 mg PO Q24H [facility] Last Admin: 11/07/24 07:50 Dose: 750 mg Documented By: WALDO Lidocaine/Diphenhydr/Alum/Mg/Simeth (Mag&Al/Sim/Diphenhyd/Lidocaine 10 Ml Oral.Susp) 10 ml PO BID [facility] Last Admin: 11/07/24 07:49 Dose: 10 ml Documented By: WALDO Lisinopril (Lisinopril 10 Mg Tablet) 10 mg PO DAILY [facility]; Protocol On Hold: 10/30/24 14:22 Last Admin: 10/30/24 09:14 Dose: Not Given Documented By: CRISTINA Non-Admin Reason: Physician Held Med Magnesium Hydroxide (Milk Of Magnesia 30 Ml Oral.Susp) 30 ml PO DAILY PRN PRN Reason: Constipation Last Admin: 11/02/24 08:47 Dose: 30 ml Documented By: CRISTINA Melatonin (Melatonin 3 Mg Tablet) 6 mg PO BEDTIME PRN PRN Reason: Insomnia Last Admin: 11/05/24 23:41 Dose: 6 mg Documented By: CATIE Methylprednisolone Sodium Succinate (Methylprednisolone Sod Succ 125 Mg/2 Ml Vial) 80 mg IVPUSH Q6H [facility] Last Admin: 11/07/24 05:43 Dose: 80 mg Documented By: RENETTA Metoprolol Tartrate (Metoprolol Tartrate 50 Mg Tablet) 50 mg PO BID [facility]; Protocol Last Admin: 11/07/24 07:49 Dose: 50 mg Documented By: WALDO Morphine Sulfate (Morphine Sulfate 4 Mg/Ml Cartridge) 4 mg IVPUSH Q4H PRN; Protocol PRN Reason: Pain, Severe (Pain Scale 7-10) Last Admin: 11/06/24 15:01 Dose: 4 mg Documented By: ELISEO Omeprazole (Omeprazole 40 Mg Capsule.Dr) 40 mg PO DAILY@0630 [facility] Last Admin: 11/07/24 05:44 Dose: 40 mg Documented By: RENETTA Oxycodone HCl (Oxycodone Hcl Immed Release 5 Mg Tablet) 5 mg PO BEDTIME [facility] Last Admin: 11/06/24 20:21 Dose: 5 mg Documented By: RENETTA Polyethylene Glycol (Polyethylene Glycol 3350 17 Gm Powd.Pack) 17 gm PO BEDTIME [facility] Last Admin: 11/06/24 21:34 Dose: Not Given Documented By: RENETTA Non-Admin Reason: Patient Refused Pravastatin Sodium (Pravastatin Sodium 40 Mg Tablet) 40 mg PO DAILY [facility] Last Admin: 11/07/24 07:50 Dose: 40 mg Documented By: WALDO Prochlorperazine Edisylate (Prochlorperazine Edisylate 10 Mg/2 Ml Vial) 5 mg IVPUSH Q6H PRN PRN Reason: Nausea Last Admin: 11/05/24 12:14 Dose: 5 mg Documented By: JOE Prochlorperazine Edisylate (Prochlorperazine Edisylate 10 Mg/2 Ml Vial) 5 mg IVPUSH Q6H PRN PRN Reason: Nausea Last Admin: 11/03/24 09:47 Dose: 5 mg Documented By: PRIYANKA Rivaroxaban (Rivaroxaban 20 Mg Tablet) 20 mg PO DAILY [facility] Last Admin: 11/07/24 07:50 Dose: 20 mg Documented By: WALDO Senna/Docusate Sodium (Sennosides/Docusate Sodium Tablet) 1 tab PO BID PRN PRN Reason: Constipation Last Admin: 11/06/24 20:38 Dose: 1 tab Documented By: RENETTA Sodium Chloride (0.9 % Sodium Chloride Flush 3 Ml Syringe) [address] [facility] Last Admin: 08/23/25 07:50 Dose: 3 ml Documented By: WALDO Zolpidem Tartrate (Zolpidem Tartrate 5 Mg Tablet) 5 mg PO BEDTIME PRN PRN Reason: Insomnia Labs 11/07/24 06:44 11/07/24 06:44 Labs: Laboratory Results - last 24 hr 11/06/24 11/06/24 11/06/24 09:01 11:19 16:04 MCV MCH MCHC RDW Plt Count MPV Absolute Nucleated RBC Nucleated RBC % (auto) Anion Gap Estim Creat Clear Calc Estimated GFR POC Glucose 301 H 323 H Random Glucose Calcium Procalcitonin 0.07 11/06/24 11/07/24 11/07/24 20:05 06:44 06:54 MCV 87.0 MCH 30.8 MCHC 35.4 H RDW 19.0 H Plt Count 197 D MPV 8.6 L Absolute Nucleated RBC 0.000 Nucleated RBC % (auto) 0.0 Anion Gap 15 Estim Creat Clear Calc 63.7 Estimated GFR > 60 POC Glucose 248 H 286 H Random Glucose 307 H Calcium 8.6 D Procalcitonin Assessment and Plan (1) Acute hypoxic respiratory failure: Status: Acute (2) Pneumonia: Status: Acute Plan d12, 68yo F with 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 on chemotherapy + sterotactic radiation, persistent AF on rivaroxaban, DM2, HTN, HLD, and GERD presenting with rigors, headache, cough, and dyspnea; admitted for hypoxia and sepsis due to pneumonia; transferred to ICU 10/28 on BiPAP due to flash pulmonary edema; diuresed and stepped down to telemetry 10/29 acute hypoxic respiratory failure and sepsis due to PCP pneumonia complicated by pulmonary edema/acute HFpEF - ID + Pulmonology following - resumed high-dose IV TMP-SMX 11/06-[previously discontinued 11/02 due to hypoNa but this may have been from other factors], continue IV methylprednsiolone 80 mg IV q6h per Pulm - completed 3d of vancomycin, MRSA swab negative - levofloxacin 10/31- - serum cryptococcal Ag negative, Aspergillus EIA negative; d/c'ed voriconazole - supplemental O2, wean from HFNC as tolerated - fever resolved - furosemide discontinued, Cardiology signed off; diurese as needed but currently appears euvolemic hypoNa, acute/chronic - SIADH resolved now with Efren <20; Nephrology signed off but continue to monitor while on TMP-SMX; off urea, NaCl tabs, and water restriction HTN - continue lisinopril + metoprolol tartrate; diltiazem d/c'ed due to soft BP persistent AF/RVR - diltiazem stopped, continue metoprolol tartrate + rivaroxaban acute lactic acidosis - resolved, not due to sepsis oral mucositis - continue Magic Mouthwash anemia of chronic disease - H+H stable metastatic breast CA - dexamethasone changed to methylprednioslone DM2 with hyperglycemia due to steroids - hold MTF, increase correction-dose lispro and add basal glargine GERD - PPI VTE ppx - rivaroxaban dispo - TBD In my clinical judgment, the patient requires continued inpatient hospitalization for the following reasons: hypoxia Total time managing care of this patient today: 50 minutes. Quality Stroke Does the patient have a stroke diagnosis?: No VTE Prior VTE?: No VTE Risk Level:: Medical - moderate - high VTE Device Contraindication: Treatment Not Indicated VTE Drug Contraindication: N/A - Med Ordered
[2024-11-07 11:02] LABS: Glucose, Whole Blood 239 mg/dL (60-115)
[2024-11-07 16:18] LABS: Glucose, Whole Blood 188 mg/dL (60-115)
[2024-11-07 20:48] LABS: Glucose, Whole Blood 199 mg/dL (60-115)
[2024-11-07] MEDS: oxyCODONE HCl Immed Release 5 MG TABLET PO (20:50)
[2024-11-08] VITALS (11 sets, daily range): BP systolic 97–123; BP diastolic 53–68; PULSE 64–88; RESP 16–20; TEMP 36.1–36.7; O2SAT 90–98; BMI 24.5
[2024-11-08] MEDS: SULFAMETHOXAZOLE IV ×3 (05:02→21:06)
[2024-11-08] MEDS: DEXTROSE 5% IV ×3 (05:02→21:06)
[2024-11-08] MEDS: TRIMETHOPRIM IV ×3 (05:02→21:06)
[2024-11-08 07:25] LABS: Anion Gap 14 (12-20); Blood Urea Nitrogen 18 mg/dL (9-16); Calcium 8.3 mg/dL (8.4-10.2); Carbon Dioxide 20 mmol/L (22-29); Chloride 97 mmol/L (96-108); Creatinine Clr Calc Pharmacy 64.6; Estimated Glomerular Filt Rate > 60; Potassium 3.4 mmol/L (3.3-5.1); Sodium 128 mmol/L (135-145)
[2024-11-08 07:27] LABS: Glucose, Whole Blood 257 mg/dL (60-115)
[2024-11-08] MEDS: Mag&Al/Sim/Diphenhyd/Lidocaine 10 ML ORAL.SUSP PO ×2 (08:58→21:09)
[2024-11-08] MEDS: Sodium Chloride Tab 1 GM TABLET PO ×3 (08:59→21:08)
[2024-11-08] MEDS: 0.9 % Sodium Chloride Flush 3 ML SYRINGE IVFLUSH ×3 (08:59→21:10)
[2024-11-08] MEDS: Insulin Glargine,Hum.rec.anlog 100 UNIT/ML 10 ML VIAL 12 UNIT SUBCUT (08:59)
[2024-11-08 11:25] LABS: Glucose, Whole Blood 326 mg/dL (60-115)
--- NOTE | 2024-11-08 13:18 | P.PNIM_ITS ---
Subjective Subjective Date of Service: 11/08/24 Interval History: had some hemoptysis yesterday; has not recurred; Xarelto held weaned from HFNC to NC 5 Lpm this morning dyspnea improving poor appetite Review of Systems Review of Systems: Yes all other systems are reviewed and are negative Physical Exam 2 Vital Signs: Vital Signs: Last Vital Signs Temp 97.7 F 11/08/24 11:35 Pulse 88 11/08/24 11:35 Resp 18 11/08/24 11:35 BP 103/59 L 11/08/24 11:35 Pulse Ox 95 11/08/24 11:35 O2 Del Method Nasal Cannula 11/08/24 11:35 O2 Flow Rate 5 11/08/24 11:35 FiO2 50 11/08/24 07:41 Oxygen Flow Rate 55 11/01/24 07:43 BMI result Body Mass Index 24.5 Gen: NAD HEENT: sclera anicteric, moist mucus membranes Neck: supple Lungs: bilateral inspiratory crackles Heart: irregular, no murmurs Abd: soft, non-tender, non-distended Ext: no edema Skin: warm/well-perfused Neuro: alert and oriented x3, no focal findings Psych: appropriate affect Objective Data Active Medications Acetaminophen (Acetaminophen 325 Mg Tablet) 650 mg PO Q6H PRN PRN Reason: Pain, Mild 1-3,fever,headache Last Admin: 11/08/24 13:04 Dose: 650 mg Documented By: WALDO Benzonatate (Benzonatate 100 Mg Capsule) 200 mg PO TID PRN PRN Reason: Cough Last Admin: 11/06/24 11:51 Dose: 200 mg Documented By: ELISEO Bisacodyl (Bisacodyl 10 Mg Supp.Rect) 10 mg OR BEDTIME PRN PRN Reason: Constipation Calcium Carbonate (Calcium Carbonate 750 Mg Tab.Chew) 750 mg PO Q4H PRN PRN Reason: Heartburn Dextrose (Dextrose 50 % 25 Gm/50 Ml Syringe) 25 gm IVPUSH Q15M PRN; Protocol PRN Reason: per Hypoglycemia Standing Ord. Glucose (Glucose Gel 15 Gm Gel..Gram.) 15 gm PO Q15M PRN; Protocol PRN Reason: per Hypoglycemia Standing Ord. Guaifenesin/Dextromethorphan (Guaifenesin Dm 100/10/5 Ml 5 Ml Syrup) 5 ml PO Q4H PRN PRN Reason: Cough Last Admin: 11/06/24 11:51 Dose: 5 ml Documented By: ELISEO Trimethoprim/Sulfamethoxazole (300 mg/ Dextrose) 518.75 mls @ 225 mls/hr IV Q8H [facility] Last Admin: 11/08/24 11:30 Dose: 225 mls/hr Documented By: WALDO Insulin Glargine (Insulin Glargine,Hum.Rec.Anlog 100 Unit/Ml 10 Ml Vial) 12 unit SUBCUT DAILY [facility] Last Admin: 11/08/24 08:59 Dose: 12 unit Documented By: WALDO Insulin Human Lispro (Insulin Lispro 100 Unit/Ml 3 Ml Vial) 0 unit SUBCUT QIDACHS [facility]; Protocol Last Admin: 11/08/24 11:30 Dose: 10 unit Documented By: WALDO Levofloxacin (Levofloxacin 750 Mg Tablet) 750 mg PO Q24H [facility] Last Admin: 11/08/24 08:58 Dose: 750 mg Documented By: WALDO Lidocaine/Diphenhydr/Alum/Mg/Simeth (Mag&Al/Sim/Diphenhyd/Lidocaine 10 Ml Oral.Susp) 10 ml PO BID [facility] Last Admin: 11/08/24 08:58 Dose: 10 ml Documented By: WALDO Lisinopril (Lisinopril 10 Mg Tablet) 10 mg PO DAILY [facility]; Protocol On Hold: 10/30/24 14:22 Last Admin: 10/30/24 09:14 Dose: Not Given Documented By: CRISTINA Non-Admin Reason: Physician Held Med Magnesium Hydroxide (Milk Of Magnesia 30 Ml Oral.Susp) 30 ml PO DAILY PRN PRN Reason: Constipation Last Admin: 11/02/24 08:47 Dose: 30 ml Documented By: CRISTINA Melatonin (Melatonin 3 Mg Tablet) 6 mg PO BEDTIME PRN PRN Reason: Insomnia Last Admin: 11/05/24 23:41 Dose: 6 mg Documented By: CATIE Methylprednisolone Sodium Succinate (Methylprednisolone Sod Succ 125 Mg/2 Ml Vial) 60 mg IVPUSH Q8H [facility] Last Admin: 11/08/24 11:30 Dose: 60 mg Documented By: WALDO Metoprolol Tartrate (Metoprolol Tartrate 50 Mg Tablet) 50 mg PO BID [facility]; Protocol Last Admin: 11/08/24 08:58 Dose: 50 mg Documented By: WALDO Morphine Sulfate (Morphine Sulfate 4 Mg/Ml Cartridge) 4 mg IVPUSH Q4H PRN; Protocol PRN Reason: Pain, Severe (Pain Scale 7-10) Last Admin: 11/07/24 11:26 Dose: 4 mg Documented By: WALDO Omeprazole (Omeprazole 40 Mg Capsule.Dr) 40 mg PO DAILY@0630 [facility] Last Admin: 11/08/24 05:03 Dose: 40 mg Documented By: RENETTA Oxycodone HCl (Oxycodone Hcl Immed Release 5 Mg Tablet) 5 mg PO BEDTIME [facility] Last Admin: 11/07/24 20:50 Dose: 5 mg Documented By: RENETTA Polyethylene Glycol (Polyethylene Glycol 3350 17 Gm Powd.Pack) 17 gm PO BEDTIME [facility] Last Admin: 11/07/24 22:30 Dose: Not Given Documented By: RENETTA Non-Admin Reason: Patient Refused Pravastatin Sodium (Pravastatin Sodium 40 Mg Tablet) 40 mg PO DAILY [facility] Last Admin: 11/08/24 08:58 Dose: 40 mg Documented By: WALDO Prochlorperazine Edisylate (Prochlorperazine Edisylate 10 Mg/2 Ml Vial) 5 mg IVPUSH Q6H PRN PRN Reason: Nausea Last Admin: 11/08/24 05:16 Dose: 5 mg Documented By: RENETTA Prochlorperazine Edisylate (Prochlorperazine Edisylate 10 Mg/2 Ml Vial) 5 mg IVPUSH Q6H PRN PRN Reason: Nausea Last Admin: 11/03/24 09:47 Dose: 5 mg Documented By: FIDENCIOCIPIETRO Rivaroxaban (Rivaroxaban 20 Mg Tablet) 20 mg PO DAILY [facility] On Hold: 11/08/24 07:33 Last Admin: 11/07/24 07:50 Dose: 20 mg Documented By: WALDO Senna/Docusate Sodium (Sennosides/Docusate Sodium Tablet) 1 tab PO BID PRN PRN Reason: Constipation Last Admin: 11/08/24 09:12 Dose: 1 tab Documented By: WALDO Sodium Chloride (0.9 % Sodium Chloride Flush 3 Ml Syringe) 3 ml IVFLUSH QSHIFT [facility] Last Admin: 11/08/24 08:59 Dose: 3 ml Documented By: WALDO Sodium Chloride (Sodium Chloride Tab 1 Gm Tablet) 1 gm PO TID [facility] Last Admin: 11/08/24 08:59 Dose: 1 gm Documented By: WALDO Urea (Urea 15 Gm Powder) 15 gm PO DAILY [facility] Last Admin: 11/08/24 09:00 Dose: 15 gm Documented By: WALDO Zolpidem Tartrate (Zolpidem Tartrate 5 Mg Tablet) 5 mg PO BEDTIME PRN PRN Reason: Insomnia Labs 11/07/24 06:44 11/08/24 06:28 Labs: Laboratory Results - last 24 hr 11/02/24 11/07/24 11/07/24 14:29 15:46 20:45 Hold Purple Top Anion Gap Estim Creat Clear Calc Estimated GFR POC Glucose 188 H 199 H Random Glucose Calcium Beta-2-GPI IgG Ab <2.0 Beta-2-GPI IgA Ab <2.0 Beta-2-GPI IgM Ab <2.0 11/08/24 11/08/24 11/08/24 06:28 06:42 07:22 Hold Purple Top SEE NOTE Anion Gap 14 Estim Creat Clear Calc 64.6 Estimated GFR > 60 POC Glucose 257 H Random Glucose 219 H Calcium 8.3 L Beta-2-GPI IgG Ab Beta-2-GPI IgA Ab Beta-2-GPI IgM Ab 11/08/24 11:18 Hold Purple Top Anion Gap Estim Creat Clear Calc Estimated GFR POC Glucose 326 H Random Glucose Calcium Beta-2-GPI IgG Ab Beta-2-GPI IgA Ab Beta-2-GPI IgM Ab Assessment and Plan (1) Acute hypoxic respiratory failure: Status: Acute (2) Pneumonia: Status: Acute Plan d13, 68yo F with 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 on chemotherapy + sterotactic radiation, persistent AF on rivaroxaban, DM2, HTN, HLD, and GERD presenting with rigors, headache, cough, and dyspnea; admitted for hypoxia and sepsis due to pneumonia; transferred to ICU 10/28 on BiPAP due to flash pulmonary edema; diuresed and stepped down to telemetry 10/29; ultimately found to have PCP pneumonia acute hypoxic respiratory failure and sepsis due to PCP pneumonia complicated by pulmonary edema/acute HFpEF - ID + Pulmonology following - resumed high-dose TMP-SMX 11/06-11/27 [IV currently; change to PO upon discharge; previously discontinued 11/02 due to hypoNa but this may have been from other factors], decrease methylprednsiolone 80 mg IV q6h to 60 mg IV q8h, taper steroids while on TMP-SMX - completed 3d of vancomycin, MRSA swab negative - levofloxacin 10/31-11/10 - serum cryptococcal Ag negative, Aspergillus EIA negative; d/c'ed voriconazole - supplemental O2, weaned off HFNC to [place] and will eventually surely require home O2 - fever resolved - furosemide discontinued, Cardiology signed off; diurese as needed but currently appears euvolemic hypoNa, acute/chronic - SIADH resolved now with Efren <20; Nephrology signed off but continue to monitor while on TMP-SMX; restart urea, NaCl tabs, and fluid restriction of 1500 mL/d HTN - continue lisinopril + metoprolol tartrate; diltiazem d/c'ed due to soft BP persistent AF/RVR - diltiazem stopped, continue metoprolol tartrate + rivaroxaban acute lactic acidosis - resolved, not due to sepsis oral mucositis - continue Magic Mouthwash anemia of chronic disease - H+H stable metastatic breast CA - dexamethasone changed to methylprednioslone as above DM2 with hyperglycemia due to steroids - hold MTF, continue correction-dose lispro and increase basal glargine GERD - PPI VTE ppx - rivaroxaban dispo - PT eval now that off HFNC In my clinical judgment, the patient requires continued inpatient hospitalization for the following reasons: hypoxia Total time managing care of this patient today: 50 minutes. Quality Stroke Does the patient have a stroke diagnosis?: No VTE Prior VTE?: No VTE Risk Level:: Medical - moderate - high VTE Device Contraindication: Treatment Not Indicated VTE Drug Contraindication: N/A - Med Ordered
[2024-11-08 16:30] LABS: Glucose, Whole Blood 207 mg/dL (60-115)
[2024-11-08] MEDS: oxyCODONE HCl Immed Release 5 MG TABLET PO ×2 (16:46→21:08)
[2024-11-08] MEDS: Milk of Magnesia 30 ML ORAL.SUSP PO (16:48)
[2024-11-08 20:41] LABS: Glucose, Whole Blood 192 mg/dL (60-115)
[2024-11-09] VITALS (10 sets, daily range): BP systolic 96–135; BP diastolic 51–76; PULSE 68–84; RESP 12–20; TEMP 36.2–37; O2SAT 90–92; BMI 25.1
[2024-11-09] MEDS: DEXTROSE 5% IV (04:18)
[2024-11-09] MEDS: SULFAMETHOXAZOLE IV ×3 (04:18→17:58)
[2024-11-09] MEDS: TRIMETHOPRIM IV ×3 (04:18→17:58)
[2024-11-09] MEDS: oxyCODONE HCl Immed Release 5 MG TABLET PO ×2 (04:26→20:59)
[2024-11-09 07:00] LABS: Hematocrit 26.1 % (37.0-47.0); Hemoglobin 9.3 g/dl (12.0-16.0); Mean Corpuscular HGB Conc 35.6 g/dl (31.0-35.0); Mean Corpuscular Hemoglobin 31.3 pg (27.0-33.0); Mean Corpuscular Volume 87.9 fL (80.0-98.0); NRBC Abs Auto 0.020 X10*3/uL (0.0-0.012); NRBC Pct Auto 0.1 /100WBC (0.0-0.2); Platelet Count 195 X10*3/uL (160-400); Red Blood Count 2.97 X10*6/uL (4.20-5.50)
[2024-11-09 07:22] LABS: Anion Gap 15 (12-20); Blood Urea Nitrogen 22 mg/dL (9-16); Calcium 8.1 mg/dL (8.4-10.2); Carbon Dioxide 19 mmol/L (22-29); Chloride 93 mmol/L (96-108); Creatinine Clr Calc Pharmacy 73.7; Estimated Glomerular Filt Rate > 60; Potassium 3.8 mmol/L (3.3-5.1); Sodium 123 mmol/L (135-145); White Blood Count 30.2 X10*3/uL (4.8-10.8)
[2024-11-09 07:24] LABS: Glucose, Whole Blood 161 mg/dL (60-115)
[2024-11-09] MEDS: Mag&Al/Sim/Diphenhyd/Lidocaine 10 ML ORAL.SUSP PO ×2 (08:25→20:58)
[2024-11-09] MEDS: Insulin Glargine,Hum.rec.anlog 100 UNIT/ML 10 ML VIAL 12 UNIT SUBCUT (08:26)
[2024-11-09] MEDS: 0.9 % Sodium Chloride Flush 3 ML SYRINGE IVFLUSH ×3 (08:26→21:00)
[2024-11-09] MEDS: Sodium Chloride Tab 1 GM TABLET PO (08:27)
--- NOTE | 2024-11-09 09:38 | MHC.HEMONCSW ---
Addendum entered by Ray Sims 11/09/24 09:57: I gave it to Lmshahida while she was visiting her mother on the medical floor (rm. [id number]). Original Note: I had Dr. Mcgill review and sign Lupe's daughter's (Willow) disability paperwork, so she can care for Lupe over the next two months. I then emailed it as requested, placed a copy in the chart, and called Willow ([phone]) and left a message letting her know I sent it to her by email and would drop it off to her today while she is visiting Lupe here.
--- NOTE | 2024-11-09 09:48 | P.PNNP_ITS ---
Subjective Subjective Date of Service: 11/09/24 Interval history: Here with pneumonia in setting stage 4 breast cancer s/p, immunosuppressed state from treatment. Following for hyponatremia. Family reports patient is tired, no other changes. No more nausea/pain is controlled. Denies other specific changes/concern. Physical Exam 2 Vital Signs: Vital Signs: Last Vital Signs Temp 97.4 F 11/09/24 08:00 Pulse 68 11/09/24 08:25 Resp 20 11/09/24 08:00 BP 135/67 11/09/24 08:25 Pulse Ox 91 L 11/09/24 08:00 O2 Del Method Nasal Cannula 11/09/24 08:00 O2 Flow Rate 5 11/09/24 08:00 FiO2 50 11/08/24 07:41 Oxygen Flow Rate 55 11/01/24 07:43 BMI result Body Mass Index 25.1 Const: General: no acute distress, alert and awake Resp: Effort & Inspection: normal respiratory effort Auscultation: clear to auscultation bilaterally Cardio: Rate: regular rate Rhythm: regular rhythm Heart sounds: S1 normal heart sound present and S2 normal heart sound present GI: Palpation (GI): Soft to palpation and nontender Skin: Rashes: no rashes Extrem: General: No edema Objective Data Labs 11/09/24 06:22 11/09/24 06:22 Labs: Laboratory Results - last 24 hr 11/08/24 11/08/24 11/08/24 11:18 16:24 20:38 WBC RBC Hgb Hct MCV MCH MCHC RDW Plt Count MPV Absolute Nucleated RBC Nucleated RBC % (auto) Sodium Potassium Chloride Carbon Dioxide Anion Gap BUN Creatinine Estim Creat Clear Calc Estimated GFR POC Glucose 326 H 207 H 192 H Random Glucose Calcium 11/09/24 11/09/24 06:22 07:16 WBC 30.2 H* RBC 2.97 L Hgb 9.3 L Hct 26.1 L MCV 87.9 MCH 31.3 MCHC 35.6 H RDW 18.4 H Plt Count 195 MPV 8.9 L Absolute Nucleated RBC 0.020 H Nucleated RBC % (auto) 0.1 Sodium 123 L Potassium 3.8 Chloride 93 L Carbon Dioxide 19 L Anion Gap 15 BUN 22 H Creatinine 0.64 Estim Creat Clear Calc 73.7 Estimated GFR > 60 POC Glucose 161 H Random Glucose 195 H Calcium 8.1 L Microbiology Microbiology Results: Microbiology 10/27/24 07:46 Blood - Venous Blood Culture - Final No growth after 5 days. 10/27/24 08:01 Blood - Venous Blood Culture - Final No growth after 5 days. 10/31/24 Unknown Sputum - Expectorated Gram Stain - Final 10/31/24 Unknown Sputum - Expectorated Sputum Culture - Final Procedures Date of Service Date of Service: 11/09/24 Assessment & Plan Assessment and plan (1) Hyponatremia: Status: Acute Plan Hyponatremia secondary to SIADH with multiple stimulators, including cancer, nausea, pulmonary process, and medications. Worsening with sodium drop to 123- likely secondary to D5W in IV antibiotic (500mL q8h). If possible, recommend switching D5W to NS in antibiotics. recommend continuing 1.2L/24 hour free water restriction. She does not have to restrict protein shakes. Will double dose of sodium chloride tablets and urea powder to 2grams salt tablets TID, 30grams urea powder daily. recommend daily electrolyte studies Discussed with Dr Levine. Time Spent With Patient Time: Total time managing care of this patient today ____ minutes. Progress Note: Quality Stroke Does the patient have a stroke diagnosis?: No
--- NOTE | 2024-11-09 10:19 | HO.PM.IMPN ---
Subjective Subjective Date of Service: 11/09/24 Interval History: Feels tired, has not been eating well SOB about the same, off high-flow and tolerating NC Sodium dropped 128--> 123 Will switch Bactrim from D5W to NS Review of Systems Review of Systems: Yes all other systems are reviewed and are negative Physical Exam Exam: Exam: General: AOx3, tired, weak Resp: CTA bilaterally, on NC CVS: Irregularly irregular rhythm. No murmurs GI: Soft, NT, no distention Skin: Warm, dry Neuro: Cranial nerves II-XII grossly intact bilaterally. Motor grossly intact bilaterally Extremities: No edema Psych: Calm, cooperative Vital Signs: Vital Signs: Last Vital Signs Temp 97.4 F 11/09/24 08:00 Pulse 68 11/09/24 08:25 Resp 20 11/09/24 08:00 BP 135/67 11/09/24 08:25 Pulse Ox 91 L 11/09/24 08:00 O2 Del Method Nasal Cannula 11/09/24 08:00 O2 Flow Rate 5 11/09/24 08:00 FiO2 50 11/08/24 07:41 Oxygen Flow Rate 55 11/01/24 07:43 BMI result Body Mass Index 25.1 Objective Data Active Medications Acetaminophen (Acetaminophen 325 Mg Tablet) 650 mg PO Q6H PRN PRN Reason: Pain, Mild 1-3,fever,headache Last Admin: 11/08/24 13:04 Dose: 650 mg Documented By: WALDO Benzonatate (Benzonatate 100 Mg Capsule) 200 mg PO TID PRN PRN Reason: Cough Last Admin: 11/06/24 11:51 Dose: 200 mg Documented By: ELISEO Bisacodyl (Bisacodyl 10 Mg Supp.Rect) 10 mg [place] BEDTIME PRN PRN Reason: Constipation Calcium Carbonate (Calcium Carbonate 750 Mg Tab.Chew) 750 mg PO Q4H PRN PRN Reason: Heartburn Dextrose (Dextrose 50 % 25 Gm/50 Ml Syringe) 25 gm IVPUSH Q15M PRN; Protocol PRN Reason: per Hypoglycemia Standing Ord. Glucose (Glucose Gel 15 Gm Gel..Gram.) 15 gm PO Q15M PRN; Protocol PRN Reason: per Hypoglycemia Standing Ord. Guaifenesin/Dextromethorphan (Guaifenesin Dm 100/10/5 Ml 5 Ml Syrup) 5 ml PO Q4H PRN PRN Reason: Cough Last Admin: 11/06/24 11:51 Dose: 5 ml Documented By: ELISEO Trimethoprim/Sulfamethoxazole (300 mg/ Dextrose) 518.75 mls @ 225 mls/hr IV Q8H [facility] Last Infusion: 11/09/24 07:09 Dose: Infused Documented By: WALDO Insulin Glargine (Insulin Glargine,Hum.Rec.Anlog 100 Unit/Ml 10 Ml Vial) 12 unit SUBCUT DAILY [facility] Last Admin: 11/09/24 08:26 Dose: 12 unit Documented By: WALDO Insulin Human Lispro (Insulin Lispro 100 Unit/Ml 3 Ml Vial) 0 unit SUBCUT QIDACHS [facility]; Protocol Last Admin: 11/09/24 08:25 Dose: 4 unit Documented By: WALDO Levofloxacin (Levofloxacin 750 Mg Tablet) 750 mg PO Q24H [facility] Last Admin: 11/09/24 08:25 Dose: 750 mg Documented By: WALDO Lidocaine/Diphenhydr/Alum/Mg/Simeth (Mag&Al/Sim/Diphenhyd/Lidocaine 10 Ml Oral.Susp) 10 ml PO BID [facility] Last Admin: 11/09/24 08:25 Dose: 10 ml Documented By: WALDO Lisinopril (Lisinopril 10 Mg Tablet) 10 mg PO DAILY [facility]; Protocol On Hold: 10/30/24 14:22 Last Admin: 10/30/24 09:14 Dose: Not Given Documented By: CRISTINA Non-Admin Reason: Physician Held Med Magnesium Hydroxide (Milk Of Magnesia 30 Ml Oral.Susp) 30 ml PO DAILY PRN PRN Reason: Constipation Last Admin: 11/08/24 16:48 Dose: 30 ml Documented By: WALDO Melatonin (Melatonin 3 Mg Tablet) 6 mg PO BEDTIME PRN PRN Reason: Insomnia Last Admin: 11/09/24 02:37 Dose: 6 mg Documented By: RENETTA Methylprednisolone Sodium Succinate (Methylprednisolone Sod Succ 125 Mg/2 Ml Vial) 60 mg IVPUSH Q8H [facility] Last Admin: 11/09/24 02:32 Dose: 60 mg Documented By: RENETTA Metoprolol Tartrate (Metoprolol Tartrate 50 Mg Tablet) 50 mg PO BID [facility]; Protocol Last Admin: 11/09/24 08:25 Dose: 50 mg Documented By: WALDO Morphine Sulfate (Morphine Sulfate 4 Mg/Ml Cartridge) 2 mg IVPUSH Q4H PRN; Protocol PRN Reason: Pain, Severe (Pain Scale 7-10) Omeprazole (Omeprazole 40 Mg Capsule.Dr) 40 mg PO DAILY@0630 [facility] Last Admin: 11/09/24 08:02 Dose: 40 mg Documented By: RENETTA Oxycodone HCl (Oxycodone Hcl Immed Release 5 Mg Tablet) 5 mg PO BEDTIME [facility] Last Admin: 11/08/24 21:08 Dose: 5 mg Documented By: RENETTA Oxycodone HCl (Oxycodone Hcl Immed Release 5 Mg Tablet) 5 mg PO Q4H PRN PRN Reason: Pain, Moderate(Pain Scale 4-6) Last Admin: 11/09/24 04:26 Dose: 5 mg Documented By: RENETTA Polyethylene Glycol (Polyethylene Glycol 3350 17 Gm Powd.Pack) 17 gm PO BEDTIME [facility] Last Admin: 11/08/24 22:21 Dose: Not Given Documented By: RENETTA Non-Admin Reason: Patient Refused Pravastatin Sodium (Pravastatin Sodium 40 Mg Tablet) 40 mg PO DAILY [facility] Last Admin: 11/09/24 08:25 Dose: 40 mg Documented By: WALDO Prochlorperazine Edisylate (Prochlorperazine Edisylate 10 Mg/2 Ml Vial) 5 mg IVPUSH Q6H PRN PRN Reason: Nausea Last Admin: 11/09/24 08:26 Dose: 5 mg Documented By: WALDO Prochlorperazine Edisylate (Prochlorperazine Edisylate 10 Mg/2 Ml Vial) 5 mg IVPUSH Q6H PRN PRN Reason: Nausea Last Admin: 11/03/24 09:47 Dose: 5 mg Documented By: PRIYANKA Rivaroxaban (Rivaroxaban 20 Mg Tablet) 20 mg PO DAILY [facility] On Hold: 11/08/24 07:33 Last Admin: 11/07/24 07:50 Dose: 20 mg Documented By: WALDO Senna/Docusate Sodium (Sennosides/Docusate Sodium Tablet) 1 tab PO BID PRN PRN Reason: Constipation Last Admin: 11/08/24 21:09 Dose: 1 tab Documented By: RENETTA Sodium Chloride (0.9 % Sodium Chloride Flush 3 Ml Syringe) 3 ml IVFLUSH QSHIFT [facility] Last Admin: 11/09/24 08:26 Dose: 3 ml Documented By: WALDO Sodium Chloride (Sodium Chloride Tab 1 Gm Tablet) 2 gm PO TID [facility] Urea (Urea 15 Gm Powder) 30 gm PO DAILY [facility] Zolpidem Tartrate (Zolpidem Tartrate 5 Mg Tablet) 5 mg PO BEDTIME PRN PRN Reason: Insomnia Labs 11/09/24 06:22 11/09/24 06:22 Labs: Laboratory Results - last 24 hr 11/08/24 11/08/24 11/08/24 11:18 16:24 20:38 MCV MCH MCHC RDW Plt Count MPV Absolute Nucleated RBC Nucleated RBC % (auto) Anion Gap Estim Creat Clear Calc Estimated GFR POC Glucose 326 H 207 H 192 H Random Glucose Calcium 11/09/24 11/09/24 06:22 07:16 MCV 87.9 MCH 31.3 MCHC 35.6 H RDW 18.4 H Plt Count 195 MPV 8.9 L Absolute Nucleated RBC 0.020 H Nucleated RBC % (auto) 0.1 Anion Gap 15 Estim Creat Clear Calc 73.7 Estimated GFR > 60 POC Glucose 161 H Random Glucose 195 H Calcium 8.1 L Assessment and Plan (1) Acute hypoxic respiratory failure: Status: Acute Plan d13, 68yo F with 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 on chemotherapy + sterotactic radiation, persistent AF on rivaroxaban, DM2, HTN, HLD, and GERD presenting with rigors, headache, cough, and dyspnea; admitted for hypoxia and sepsis due to pneumonia; transferred to ICU 10/28 on BiPAP due to flash pulmonary edema; diuresed and stepped down to telemetry 10/29; ultimately found to have PCP pneumonia acute hypoxic respiratory failure and sepsis due to PCP pneumonia complicated by pulmonary edema/acute HFpEF - ID + Pulmonology following - resumed high-dose TMP-SMX 11/06-11/27 [IV currently; change to PO upon discharge; previously discontinued 11/02 due to hypoNa but this may have been from other factors], decrease methylprednsiolone 80 mg IV q6h to 60 mg IV q8h, taper steroids while on TMP-SMX - completed 3d of vancomycin, MRSA swab negative - levofloxacin 10/31-11/10 - serum cryptococcal Ag negative, Aspergillus EIA negative; d/c'ed voriconazole - supplemental O2, weaned off HFNC to [place] and will eventually surely require home O2 - fever resolved - furosemide discontinued, Cardiology signed off; diurese as needed but currently appears euvolemic hypoNa, acute/chronic - SIADH initially resolved now with Efren <20; Nephrology signed off but continue to monitor while on TMP-SMX; restart urea, NaCl tabs, and fluid restriction of 1500 mL/d - sodium decreased 128--> 123, likely secondary to D5W - contacted pharmacy, will administer Bactrim with NS - nephrology following, will double urea and sodium tablets HTN - continue lisinopril + metoprolol tartrate; diltiazem d/c'ed due to soft BP persistent AF/RVR - diltiazem stopped, continue metoprolol tartrate, hold Xarelto due to hemoptysis acute lactic acidosis - resolved, not due to sepsis oral mucositis - continue Magic Mouthwash anemia of chronic disease - H+H stable metastatic breast CA - dexamethasone changed to methylprednioslone as above DM2 with hyperglycemia due to steroids - hold MTF, continue correction-dose lispro and increase basal glargine GERD - PPI VTE ppx - Xarelto on hold due to hemoptysis; SCDs dispo - PT eval now that off HFNC; declines STR and would like to take pt home with family help and services In my clinical judgment, the patient requires continued inpatient hospitalization for the following reasons: hypoxia Quality Stroke Does the patient have a stroke diagnosis?: No VTE Prior VTE?: No VTE Risk Level:: Medical - moderate - high VTE Device Contraindication: Treatment Not Indicated VTE Drug Contraindication: N/A - Med Ordered
[2024-11-09 11:15] LABS: Glucose, Whole Blood 189 mg/dL (60-115)
[2024-11-09] MEDS: SODIUM CHLORIDE 0.9% IV ×2 (11:34→17:58)
--- NOTE | 2024-11-09 12:10 | MHC.CLN ---
F/U PO INTAKE 75-100% DIET RX: 2000DM WITH 1500ML FLUIDS RESTRICTION RECEIVING ENSURE BID TO PROVIDE 700KCALS, 40G PROTEIN, 384ML FREE WATER FROM SUPPLEMENT FOR FLUID RESTRICTION MONITOR PO INTAKE AND ENCOURAGE SUPPLEMENTS
[2024-11-09] MEDS: Sodium Chloride Tab 1 GM TABLET 2 GM PO ×2 (14:25→20:58)
--- NOTE | 2024-11-09 15:44 | MHC.CM.PN ---
EMR REVIEWED, CM MET W/PT'S DTR/HCP OUTSIDE PT RM, PT'S DTR REPORTS PT IS NOT READY FOR HOSPICE YET AND WOULD LIKE PT TO RETURN HOME W/SERVICES VS ONE WEEK AT A NURSING FACILITY, [facility] UPDATED AND CM WILL CONT TO FOLLOW DC NEEDS.
[2024-11-09 16:24] LABS: Glucose, Whole Blood 130 mg/dL (60-115)
[2024-11-09] MEDS: Milk of Magnesia 30 ML ORAL.SUSP PO (20:58)
[2024-11-09 21:15] LABS: Glucose, Whole Blood 140 mg/dL (60-115)
[2024-11-10] VITALS (16 sets, daily range): BP systolic 96–128; BP diastolic 53–70; PULSE 66–98; RESP 12–20; TEMP 35.6–36.9; O2SAT 83–95; BMI 24.7
[2024-11-10] MEDS: oxyCODONE HCl Immed Release 5 MG TABLET PO ×2 (02:33→10:48)
[2024-11-10] MEDS: SULFAMETHOXAZOLE IV ×3 (02:38→18:27)
[2024-11-10] MEDS: SODIUM CHLORIDE 0.9% IV ×3 (02:38→18:27)
[2024-11-10] MEDS: TRIMETHOPRIM IV ×3 (02:38→18:27)
[2024-11-10 07:25] LABS: Anion Gap 15 (12-20); Blood Urea Nitrogen 23 mg/dL (9-16); Calcium 8.1 mg/dL (8.4-10.2); Carbon Dioxide 19 mmol/L (22-29); Chloride 103 mmol/L (96-108); Creatinine Clr Calc Pharmacy 74.4; Estimated Glomerular Filt Rate > 60; Potassium 4.5 mmol/L (3.3-5.1); Sodium 132 mmol/L (135-145)
[2024-11-10 07:45] LABS: Glucose, Whole Blood 95 mg/dL (60-115)
[2024-11-10] MEDS: Mag&Al/Sim/Diphenhyd/Lidocaine 10 ML ORAL.SUSP PO ×2 (08:56→20:54)
[2024-11-10] MEDS: Insulin Glargine,Hum.rec.anlog 100 UNIT/ML 10 ML VIAL 12 UNIT SUBCUT (08:57)
[2024-11-10] MEDS: Sodium Chloride Tab 1 GM TABLET 2 GM PO (08:57)
[2024-11-10] MEDS: 0.9 % Sodium Chloride Flush 3 ML SYRINGE IVFLUSH ×3 (09:08→21:03)
--- NOTE | 2024-11-10 10:17 | P.PNNP_ITS ---
Subjective Subjective Date of Service: 11/10/24 Interval history: Here with pneumonia in setting stage 4 breast cancer s/p, immunosuppressed state from treatment. Following for hyponatremia. No new events noted. Sodium up to 132 this a.m. from 123 yesterday. bactrim with D5w switched to NS, and urea powder and salt tab doses increased. Physical Exam 2 Vital Signs: Vital Signs: Last Vital Signs Temp 96.9 F 11/10/24 08:17 Pulse 78 11/10/24 08:28 Resp 18 11/10/24 08:17 BP 101/53 L 11/10/24 08:28 Pulse Ox 93 11/10/24 08:28 O2 Del Method Nasal Cannula 11/10/24 08:17 O2 Flow Rate 5 11/10/24 08:17 FiO2 50 11/08/24 07:41 Oxygen Flow Rate 55 11/01/24 07:43 BMI result Body Mass Index 24.7 Const: General: no acute distress Resp: Effort & Inspection: normal respiratory effort Auscultation: clear to auscultation bilaterally Cardio: Rate: regular rate Rhythm: regular rhythm Heart sounds: S1 normal heart sound present and S2 normal heart sound present GI: Palpation (GI): Soft to palpation and nontender Skin: Rashes: no rashes Extrem: General: No edema Objective Data Labs 11/09/24 06:22 11/10/24 06:44 Labs: Laboratory Results - last 24 hr 11/09/24 11/09/24 11/09/24 11:11 16:10 21:11 Sodium Potassium Chloride Carbon Dioxide Anion Gap BUN Creatinine Estim Creat Clear Calc Estimated GFR POC Glucose 189 H 130 H 140 H Random Glucose Calcium 11/10/24 11/10/24 06:44 07:40 Sodium 132 L Potassium 4.5 Chloride 103 Carbon Dioxide 19 L Anion Gap 15 BUN 23 H Creatinine 0.63 Estim Creat Clear Calc 74.4 Estimated GFR > 60 POC Glucose 95 Random Glucose 90 Calcium 8.1 L Microbiology Microbiology Results: Microbiology 10/27/24 07:46 Blood - Venous Blood Culture - Final No growth after 5 days. 10/27/24 08:01 Blood - Venous Blood Culture - Final No growth after 5 days. 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 Improving. Recommend keeping IV bactrin in NS if possible. Decreased sodium tablets and urea powder doses by 50% given improvement in serum sodium levels. recommend continuing 1.2L/24 hour free water restriction. She does not have to restrict protein shakes. recommend daily electrolyte studies Discussed with Dr Levine. Time Spent With Patient Time: Total time managing care of this patient today ____ minutes. Progress Note: Quality Stroke Does the patient have a stroke diagnosis?: No
[2024-11-10 10:50] LABS: Glucose, Whole Blood 157 mg/dL (60-115)
--- NOTE | 2024-11-10 15:16 | HO.PM.IMPN ---
Subjective Subjective Date of Service: 11/10/24 Interval History: Continues to be tired And some abdominal discomfort; has not had bowel movement in 4-5 days Breathing around the same Tolerating 4-5L NC Seen and examined by PT who helped pt into recliner by bed Review of Systems Review of Systems: Yes all other systems are reviewed and are negative Physical Exam Exam: Exam: General: AOx3, tired, weak Resp: CTA bilaterally, on NC CVS: Irregularly irregular rhythm. No murmurs GI: Soft, NT, no distention Skin: Warm, dry Neuro: Cranial nerves II-XII grossly intact bilaterally. Motor grossly intact bilaterally Extremities: No edema Psych: Calm, cooperative Vital Signs: Vital Signs: Last Vital Signs Temp 96.1 F L 11/10/24 12:45 Pulse 89 11/10/24 11:24 Resp 20 11/10/24 11:24 BP 101/57 L 11/10/24 14:25 Pulse Ox 90 L 11/10/24 11:24 O2 Del Method Nasal Cannula 11/10/24 11:24 O2 Flow Rate 5 11/10/24 08:17 FiO2 50 11/08/24 07:41 Oxygen Flow Rate 55 11/01/24 07:43 BMI result Body Mass Index 24.7 Objective Data Active Medications Acetaminophen (Acetaminophen 325 Mg Tablet) 650 mg PO Q6H PRN PRN Reason: Pain, Mild 1-3,fever,headache Last Admin: 11/09/24 16:37 Dose: 650 mg Documented By: WALDO Benzonatate (Benzonatate 100 Mg Capsule) 200 mg PO TID PRN PRN Reason: Cough Last Admin: 11/06/24 11:51 Dose: 200 mg Documented By: ELISEO Bisacodyl (Bisacodyl 10 Mg Supp.Rect) 10 mg CA BEDTIME PRN PRN Reason: Constipation Calcium Carbonate (Calcium Carbonate 750 Mg Tab.Chew) 750 mg PO Q4H PRN PRN Reason: Heartburn Dextrose (Dextrose 50 % 25 Gm/50 Ml Syringe) 25 gm IVPUSH Q15M PRN; Protocol PRN Reason: per Hypoglycemia Standing Ord. Glucose (Glucose Gel 15 Gm Gel..Gram.) 15 gm PO Q15M PRN; Protocol PRN Reason: per Hypoglycemia Standing Ord. Guaifenesin/Dextromethorphan (Guaifenesin Dm 100/10/5 Ml 5 Ml Syrup) 5 ml PO Q4H PRN PRN Reason: Cough Last Admin: 11/06/24 11:51 Dose: 5 ml Documented By: ELISEO Trimethoprim/Sulfamethoxazole (300 mg/ Sodium Chloride) 518.75 mls @ 225 mls/hr IV Q8H [facility] Last Admin: 11/10/24 11:34 Dose: 225 mls/hr Documented By: MATTI Insulin Glargine (Insulin Glargine,Hum.Rec.Anlog 100 Unit/Ml 10 Ml Vial) 12 unit SUBCUT DAILY [facility] Last Admin: 11/10/24 08:57 Dose: 12 unit Documented By: MATTI Insulin Human Lispro (Insulin Lispro 100 Unit/Ml 3 Ml Vial) 0 unit SUBCUT QIDACHS [facility]; Protocol Last Admin: 11/10/24 11:35 Dose: 4 unit Documented By: MATTI Levofloxacin (Levofloxacin 750 Mg Tablet) 750 mg PO Q24H [facility] Last Admin: 11/10/24 08:56 Dose: 750 mg Documented By: MATTI Lidocaine/Diphenhydr/Alum/Mg/Simeth (Mag&Al/Sim/Diphenhyd/Lidocaine 10 Ml Oral.Susp) 10 ml PO BID [facility] Last Admin: 11/10/24 08:56 Dose: 10 ml Documented By: MATTI Lisinopril (Lisinopril 10 Mg Tablet) 10 mg PO DAILY [facility]; Protocol On Hold: 10/30/24 14:22 Last Admin: 10/30/24 09:14 Dose: Not Given Documented By: CRISTINA Non-Admin Reason: Physician Held Med Magnesium Hydroxide (Milk Of Magnesia 30 Ml Oral.Susp) 30 ml PO DAILY PRN PRN Reason: Constipation Last Admin: 11/09/24 20:58 Dose: 30 ml Documented By: CARLOS EDUARDO Melatonin (Melatonin 3 Mg Tablet) 6 mg PO BEDTIME PRN PRN Reason: Insomnia Last Admin: 11/09/24 02:37 Dose: 6 mg Documented By: RENETTA Methylprednisolone Sodium Succinate (Methylprednisolone Sod Succ 125 Mg/2 Ml Vial) 60 mg IVPUSH Q8H [facility] Last Admin: 11/10/24 08:58 Dose: 60 mg Documented By: MATTI Metoprolol Tartrate (Metoprolol Tartrate 50 Mg Tablet) 50 mg PO BID [facility]; Protocol Last Admin: 11/10/24 09:09 Dose: Not Given Documented By: MATTI Non-Admin Reason: Physician Held Med Morphine Sulfate (Morphine Sulfate 4 Mg/Ml Cartridge) 2 mg IVPUSH Q4H PRN; Protocol PRN Reason: Pain, Severe (Pain Scale 7-10) Last Admin: 11/10/24 06:26 Dose: 2 mg Documented By: CARLOS EDUARDO Omeprazole (Omeprazole 40 Mg Capsule.Dr) 40 mg PO DAILY@0630 [facility] Last Admin: 11/10/24 06:24 Dose: 40 mg Documented By: CARLOS EDUARDO Oxycodone HCl (Oxycodone Hcl Immed Release 5 Mg Tablet) 5 mg PO BEDTIME [facility] Last Admin: 11/10/24 10:48 Dose: 5 mg Documented By: MATTI Oxycodone HCl (Oxycodone Hcl Immed Release 5 Mg Tablet) 5 mg PO Q4H PRN PRN Reason: Pain, Moderate(Pain Scale 4-6) Last Admin: 11/09/24 04:26 Dose: 5 mg Documented By: RENETTA Polyethylene Glycol (Polyethylene Glycol 3350 17 Gm Powd.Pack) 17 gm PO BEDTIME [facility] Last Admin: 11/09/24 20:59 Dose: 17 gm Documented By: CARLOS EDUARDO Pravastatin Sodium (Pravastatin Sodium 40 Mg Tablet) 40 mg PO DAILY [facility] Last Admin: 11/10/24 08:56 Dose: 40 mg Documented By: MATTI Prochlorperazine Edisylate (Prochlorperazine Edisylate 10 Mg/2 Ml Vial) 5 mg IVPUSH Q6H PRN PRN Reason: Nausea Last Admin: 11/10/24 09:48 Dose: 5 mg Documented By: MATTI Prochlorperazine Edisylate (Prochlorperazine Edisylate 10 Mg/2 Ml Vial) 5 mg IVPUSH Q6H PRN PRN Reason: Nausea Last Admin: 11/03/24 09:47 Dose: 5 mg Documented By: PRIYANKA Rivaroxaban (Rivaroxaban 20 Mg Tablet) 20 mg PO DAILY [facility] On Hold: 11/08/24 07:33 Last Admin: 11/07/24 07:50 Dose: 20 mg Documented By: WALDO Senna/Docusate Sodium (Sennosides/Docusate Sodium Tablet) 1 tab PO BID PRN PRN Reason: Constipation Last Admin: 11/08/24 21:09 Dose: 1 tab Documented By: RENETTA Sodium Chloride (0.9 % Sodium Chloride Flush 3 Ml Syringe) 3 ml IVFLUSH QSHIFT [facility] Last Admin: 11/10/24 09:08 Dose: 3 ml Documented By: MATTI Sodium Chloride (Sodium Chloride Tab 1 Gm Tablet) 1 gm PO TID [facility] Urea (Urea 15 Gm Powder) 15 gm PO DAILY [facility] Zolpidem Tartrate (Zolpidem Tartrate 5 Mg Tablet) 5 mg PO BEDTIME PRN PRN Reason: Insomnia Last Admin: 11/09/24 20:59 Dose: 5 mg Documented By: [email or web address] Labs 11/09/24 06:22 11/10/24 06:44 Labs: Laboratory Results - last 24 hr 11/09/24 11/09/24 11/10/24 16:10 21:11 06:44 Anion Gap 15 Estim Creat Clear Calc 74.4 Estimated GFR > 60 POC Glucose 130 H 140 H Random Glucose 90 Calcium 8.1 L 11/10/24 11/10/24 07:40 10:45 Anion Gap Estim Creat Clear Calc Estimated GFR POC Glucose 95 157 H Random Glucose Calcium Assessment and Plan (1) Acute hypoxic respiratory failure: Status: Acute Assessment and Plan: d14, 68yo F with 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 on chemotherapy + sterotactic radiation, persistent AF on rivaroxaban, DM2, HTN, HLD, and GERD presenting with rigors, headache, cough, and dyspnea; admitted for hypoxia and sepsis due to pneumonia; transferred to ICU 10/28 on BiPAP due to flash pulmonary edema; diuresed and stepped down to telemetry 10/29; ultimately found to have PCP pneumonia acute hypoxic respiratory failure and sepsis due to PCP pneumonia complicated by pulmonary edema/acute HFpEF - ID + Pulmonology following - resumed high-dose TMP-SMX 11/06-11/27 [IV currently; change to PO upon discharge; previously discontinued 11/02 due to hypoNa], decrease methylprednsiolone 80 mg IV q6h to 60 mg IV q8h, taper steroids while on TMP-SMX; will d/c on prednisone taper - completed 3d of vancomycin, MRSA swab negative - levofloxacin 10/31-11/10 - serum cryptococcal Ag negative, Aspergillus EIA negative; d/c'ed voriconazole - supplemental O2, weaned off HFNC to DE and will be dc'd on home O2 - fever resolved - furosemide discontinued, Cardiology signed off; diurese as needed but currently appears euvolemic hypoNa, acute on chronic - SIADH initially resolved now with Efren <20; Nephrology signed off but continue to monitor while on TMP-SMX; restart urea, NaCl tabs, and fluid restriction of 1500 mL/d - sodium decreased 128--> 123, likely secondary to D5W, now improved to 132 - contacted pharmacy, will administer Bactrim with NS - nephrology following, urea and sodium tablets no longer doubled HTN - continue lisinopril + metoprolol tartrate; diltiazem d/c'ed due to soft BP persistent AF/RVR - diltiazem stopped, continue metoprolol tartrate, hold Xarelto due to hemoptysis acute lactic acidosis - resolved, not due to sepsis oral mucositis - continue Magic Mouthwash anemia of chronic disease - H+H stable metastatic breast CA - dexamethasone changed to methylprednioslone as above DM2 with hyperglycemia due to steroids - hold MTF, continue correction-dose lispro and increase basal glargine GERD - PPI VTE ppx - Xarelto on hold due to hemoptysis; SCDs dispo - PT eval now that off HFNC; declines STR and would like to take pt home with family help and services In my clinical judgment, the patient requires continued inpatient hospitalization for the following reasons: hypoxia, hyponatremia Quality Stroke Does the patient have a stroke diagnosis?: No VTE Prior VTE?: No VTE Risk Level:: Medical - moderate - high VTE Device Contraindication: Treatment Not Indicated VTE Drug Contraindication: N/A - Med Ordered
[2024-11-10 15:59] LABS: Glucose, Whole Blood 167 mg/dL (60-115)
[2024-11-10] MEDS: Sodium Chloride Tab 1 GM TABLET PO ×2 (16:39→20:54)
[2024-11-10 19:37] LABS: Glucose, Whole Blood 164 mg/dL (60-115)
[2024-11-11] MEDS: SULFAMETHOXAZOLE IV ×2 (03:02→10:39)
[2024-11-11] MEDS: SODIUM CHLORIDE 0.9% IV ×2 (03:02→10:39)
[2024-11-11] MEDS: TRIMETHOPRIM IV ×2 (03:02→10:39)
[2024-11-11 03:31] VITALS: BP 163/67; PULSE 83; RESP 18; TEMP 36.8; O2SAT 92
[2024-11-11 06:00] VITALS: BMI 25.3
[2024-11-11 07:09] LABS: Anion Gap 12 (12-20); Blood Urea Nitrogen 21 mg/dL (9-16); Calcium 8.5 mg/dL (8.4-10.2); Carbon Dioxide 18 mmol/L (22-29); Chloride 105 mmol/L (96-108); Creatinine Clr Calc Pharmacy 75.2; Estimated Glomerular Filt Rate > 60; Potassium 4.3 mmol/L (3.3-5.1); Sodium 131 mmol/L (135-145)
[2024-11-11 07:40] VITALS: BP 132/71; PULSE 83; RESP 20; TEMP 36.6; O2SAT 92
[2024-11-11 07:40] LABS: Glucose, Whole Blood 75 mg/dL (60-115)
[2024-11-11] MEDS: Insulin Glargine,Hum.rec.anlog 100 UNIT/ML 10 ML VIAL 12 UNIT SUBCUT (08:47)
[2024-11-11 08:48] VITALS: BP 132/71; PULSE 83
[2024-11-11] MEDS: Mag&Al/Sim/Diphenhyd/Lidocaine 10 ML ORAL.SUSP PO (08:48)
[2024-11-11] MEDS: Sodium Chloride Tab 1 GM TABLET PO ×2 (08:48→15:51)
[2024-11-11] MEDS: 0.9 % Sodium Chloride Flush 3 ML SYRINGE IVFLUSH (08:49)
--- NOTE | 2024-11-11 09:57 | HO.WOUND ---
Wound Consult: Initial 69yr [place] [facility] [place] See progress notes and H&P for detailed history. Wound consult placed for right buttock. Patient agreeable to assessment and photo documentation. Patient with incontinence and moisture trapping in deep gluteal fold Etiology: right buttock superficial wounding located inside gluteal fold, noted to have mirrored healing wound to opposing side of fold. not over bony prominence when palpated. intact blanchable redness and hyperpigmentation noted over coccyx. Measurements: 0.5cm x 0.5cm x 0.1cm Wound Bed: moist pink with thin yellow layer Drainage / Odor: none, none Edges: ? open, attached Snehal wound: ? No Induration, Fluctuance or Warmth noted, hyperpigmentation Pain: none Goals of Treatment: ? moist wound healing, moisture barrier bilateral heels are intact, reddened, and blanching - protective foams applied, may stay in place for 5-7 days, peel back and replace for shift assessment. Recommendations: 1. Turn and Reposition every 2 hours and as needed for patient comfort. Use pillows or wedges to support off loading positions. 2. Off Load all bony prominences with use of pillows and heel boots if needed. Apply Preventative foams where needed. 3. Monitor for incontinence and moisture control, use barrier creams when needed for prevention and treatment. 4. Provide adequate and supplemental nutrition. 5. Order or Continue low air loss mattress. 6. When applicable maintain blood glucose levels per Providers order. Buttocks: Off Load Pressure with Q2 hr turns and use of pillows - Cleanse with PH balance spray or wipes, pat dry. ?Apply thin layer of Triad to wound bed. Do not remove all of paste between applications as this may cause further skin damage.? Cover with foam dressing to aid in off loading and protection from friction. Change every 3 days and PRN. Re-consult wound care Nurse for wound deterioration or wound changes.
--- NOTE | 2024-11-11 10:51 | MHC.CLN ---
F/U PO INTAKE 25-75% with 1:1 WT STABLE DIET RX: 2000DM WITH 1500ML FLUIDS RESTRICTION RECEIVING ENSURE BID TO PROVIDE 700KCALS, 40G PROTEIN, 384ML FREE WATER FROM SUPPLEMENT FOR FLUID RESTRICTION CONTINUE TO MONITOR PO INTAKE AND ENCOURAGE SUPPLEMENTS
[2024-11-11 11:23] LABS: Glucose, Whole Blood 103 mg/dL (60-115)
[2024-11-11 11:27] VITALS: BP 131/57; PULSE 70; RESP 20; TEMP 36.5; O2SAT 94
--- NOTE | 2024-11-11 11:55 | MHC.CM.PN ---
Addendum entered by Ninoska Marks RN 11/11/24 11:57: PT WILL HAVE [facility] FOR NEW HOME O2, PT ON 2L NC. Original Note: IMM 11/11/24 DELIVERED TO BEDSIDE, CM MET W/PT AND DTR AT BEDSIDE TO DISCUSS DISPO, PT WOULD LIKE TO DC [facility] HOWEVER DTR REPORTS THAT FAMILY IS PICKING UP HOSPITAL BED AND A LATER DC IS PREFERRED, PT WILL DC HOME W/NEW [facility] FOR SN/PT AT 4:30PM VIA [facility] FOR BLS TRANSPORT.
[2024-11-11] MEDS: oxyCODONE HCl Immed Release 5 MG TABLET PO (12:31)
[2024-11-11 15:46] LABS: Glucose, Whole Blood 91 mg/dL (60-115)
[2024-11-11 16:00] VITALS: BP 127/58; PULSE 86; RESP 20; TEMP 36.6; O2SAT 92
--- NOTE | 2024-11-11 16:18 | P.DS_ITS ---
DS: Providers Provider Date of Service: 11/11/24 Date of admission: 10/27/24 08:49 Date of discharge: 11/11/24 Primary care physician: Maurilio Carias MD Consults: 10/27/24 18:20 Consult to Hematology / Oncology Routine Consulting Provider: [facility] Oncology/Hematology Reason for consultation: Hypoxia, pna; follows with Dr. Mcgill 10/29/24 14:20 Consult to Cardiology Routine Consulting Provider: [facility] Reason for consultation: Intermittent AFib with RVR 10/30/24 08:50 Consult to Infectious Diseases Routine Consulting Provider: [facility] Reason for consultation: fevers on vanc and cefepime;immunocompromised 10/30/24 20:21 Consult to Wound Care Routine Reason for consultation: Bedrest, high risk, hi-flow O2 Has provider been notified: Yes 11/02/24 13:12 Consult to Pulmonology Routine Consulting Provider: [facility] Reason for consultation: ?ARDS vs PJP, ?bronch 11/02/24 14:42 Consult to Infectious Diseases Routine Consulting Provider: [facility] Reason for consultation: pneumonitis 11/03/24 08:32 Consult to Nephrology Routine Consulting Provider: [facility] Reason for consultation: metastatic cancer, hypoxic on lasix, hyponaremia now 11/05/24 18:30 Consult to Wound Care Routine Reason for consultation: Small stage 2 on right buttock; prolonged hospital stay; bedrest DS: Diagnosis Discharge Diagnosis (1) Acute hypoxic respiratory failure: Status: Acute DS: Summary Hospital Course Hospital Course: From admission HPI: Date of Service: 10/27/24 Attending physician on admission: [facility] Chief Complaint: SOB Pt is a 68-year-old female with a PMH significant for stage IV breast cancer with mets to the brain on chemoradiation therapy follows with Dr. Mcgill, persistent AFib on Xarelto, [id number] type 2 diabetes,?HTN, HLD, and GERD who presents to the ED with?shaking chills, headache, cough, and SOB upon awakening from sleep at 04:00 this morning. Pt also experiencing headache and palpitations. Says the SOB ?comes and goes, comes and goes . pt reports was in her normal state of health last night. Denies chest pain or pressure. No nausea, vomiting, diarrhea, abdominal pain. In the ED pt was febrile up to 102, tachycardic up to 139, and tachypneic up to 26, with variable BP as low as 89/40. Was also noted to be hypoxic as low as 77% on RA, improved with NC to 86% and eventually transitioned to high-flow oxygen in the ED. Labs were significant for leukocytosis 23.3, stable normocytic anemia of 10.0/28.9, sodium 133, anion gap 22, bicarb 16, lactic acid 8.1 with repeat 1.7. Troponin WNL at 13.4. UA negative for UTI. Tested negative for COVID, flu, RSV. CXR showed known right upper lobe mass with airspace opacity in the right middle lobe consistent with pneumonia. EKG demonstrated AFib with RVR of 135. Pt was treated in the ED with sepsis bolus IVF, diltiazem 15 mg IV, hydrocortisone 100 mg IV, cefepime, and vancomycin. Pt was initially evaluated by ICU who felt pt was stable enough for the regular hospital floor. Pt is admitted to the hospital for treatment and further evaluation of acute hypoxic respiratory failure in the setting of pneumonia with sepsis in an immunocompromised pt. Hospital course: The pt was admitted to the hospital for acute hypoxic respiratory failure in the setting of Pneumocystis jiroveci pneumonia as well as acute heart failure with preserved ejection fraction. Pt had a long hospital stay that was complicated by atrial fibrillation with rapid ventricular response treated with IV diltiazem; acute respiratory distress secondary to flash pulmonary edema requiring rescue BiPAP, diuresing, and brief stay in the ICU; acute on chronic hyponatremia requiring sodium supplementation and Nephrology consultation; as well as prolonged need for high-flow. Pt was treated with IV antibiotics, high dose IV steroids, and supplemental oxygen. Pt was eventually weaned to 4 L nasal cannula, and with gradual improvement in symptoms. Was seen and evaluated by respiratory and qulified for home O2, as well as PT who recommended short- term rehab, which pt declined. She will be sent home with family help and with VNA services. For medications, pt will be discharged home on Bactrim DS b.i.d. times 14 days, ending on 11/27; prednisone taper while on antibiotics beginning with 60 mg daily x3 days and reducing dosage by 10 mg every 3 days until taper ends on 11/29; and urea 15 g daily. Pt was also seen and evaluated by pulmonology, Nephrology, Infectious Disease, and Oncology. Pt should follow up with Oncology, pulmonology, and Nephrology within the next 1-2 weeks. Pt should resume Xarelto, discontinue dexamethasone, and resume all other home medications at time of discharge. Additional details of hospital stay as indicated below. acute hypoxic respiratory failure and sepsis due to PCP pneumonia complicated by pulmonary edema/acute HFpEF - Seen and evaluated by ID + Pulmonology - resumed high-dose TMP-SMX 11/06-11/27 [IV currently; change to PO upon discharge; previously discontinued 11/02 due to hypoNa], decreased methylprednsiolone 80 mg IV q6h to 60 mg IV q8h, taper steroids while on TMP- SMX; will d/c on p.o prednisone taper starting at 60mg daily x3 days and reducing by 10mg every 3 days - completed 3d of vancomycin, MRSA swab negative - levofloxacin 10/31-11/10, completed - serum cryptococcal Ag negative, Aspergillus EIA negative; d/c'ed voriconazole - supplemental O2, weaned off HFNC to [place] and will be dc'd on home O2 - fever resolved - furosemide discontinued, Cardiology signed off; diurese as needed but currently appears euvolemic hypoNa, acute on chronic - SIADH initially resolved now with Efren <20; Nephrology signed off but continue to monitor while on TMP-SMX; restart urea, NaCl tabs, and fluid restriction of 1500 mL/d - sodium decreased 128--> 123, likely secondary to D5W, now improved to 132 - contacted pharmacy, will administer Bactrim with NS - nephrology following, urea and sodium tablets no longer doubled - will be discharged on Na+1g bid and urea 15g daily; followup with nephrology about superintendent terminal urea use HTN - continue lisinopril + metoprolol tartrate; diltiazem d/c'ed due to soft BP persistent AF/RVR - diltiazem stopped, continue metoprolol tartrate, Xarelto on hold due to hemoptysis - resume Xarelto on discharge acute lactic acidosis - resolved, not due to sepsis oral mucositis - continue Magic Mouthwash anemia of chronic disease - H+H stable - follow up outpatient metastatic breast CA - dexamethasone changed to methylprednioslone as above - d/c dexamethasone as on prednisone taper DM2 with hyperglycemia due to steroids - continue home metformin - diabetic diet GERD - continue omeprazole Time Attestation Discharge Coordination Time (in mins): 45 Quality: Safe Use of Opioids Does Pt have an Active Cancer Diagnosis on the Problem List?: Yes Opioid Measure Date for [facility] Report: 10/12/24 Opioid Measure Time for [facility] Report: 16:42 Quality: Stroke Does the patient have a stroke diagnosis?: No Physical Exam Exam: Exam: General: AOx3, tired, weak, sitting comfortably in recliner Resp: CTA bilaterally, on NC CVS: Irregularly irregular rhythm. No murmurs GI: Soft, NT, no distention Skin: Warm, dry Neuro: Cranial nerves II-XII grossly intact bilaterally. Motor grossly intact bilaterally Extremities: No edema Psych: Calm, cooperative Vital Signs: Vital Signs: Last Vital Signs Temp 97.9 F 11/11/24 16:00 Pulse 86 11/11/24 16:00 Resp 20 11/11/24 16:00 BP 127/58 L 11/11/24 16:00 Pulse Ox 92 11/11/24 16:00 O2 Del Method Nasal Cannula 11/11/24 16:00 O2 Flow Rate 2 11/11/24 16:00 FiO2 50 11/08/24 07:41 Oxygen Flow Rate 55 11/01/24 07:43 BMI result Body Mass Index 25.3 DS: Data Data Completed and Pending Completed studies during hospitalization [Text1]: Procedures Resection of Left Breast, Open Approach (07/04/22) Labs on day of discharge: Laboratory Results - last 24 hr 11/10/24 11/11/24 11/11/24 19:28 06:32 07:36 Hold Purple Top SEE NOTE Sodium 131 L Potassium 4.3 Chloride 105 Carbon Dioxide 18 L Anion Gap 12 BUN 21 H Creatinine 0.63 Estim Creat Clear Calc 75.2 Estimated GFR > 60 POC Glucose 164 H 75 Random Glucose 77 Calcium 8.5 11/11/24 11/11/24 11:19 15:43 Hold Purple Top Sodium Potassium Chloride Carbon Dioxide Anion Gap BUN Creatinine Estim Creat Clear Calc Estimated GFR POC Glucose 103 91 Random Glucose Calcium Discharge Plan Discharge Anticipated Discharge Date/Time: 11/11/24 15:30 Patient Disposition: Home Health Service Discharge Diagnosis: Acute hypoxic respiratory failure in the setting of Pneumocystis jiroveci pneumonia Referrals: [facility] [Other] - 1 Day Referral Note: [facility] WILL DELIVER YOUR HOME OXYGEN AND TUBING, PLEASE CALL NUMBER ON STICKER OR ABOVE NUMBER SOON YOU ARRIVE HOME. [facility] [Outside] - 1 Day Referral Note: [facility] Jonathon Levine MD [Physician, Nephrology] - 1 Week Renate Mcgill MD [Physician, Hematology & Oncology] - 1 Week Po,Maurilio Brooke MD [Primary Care Provider, Internal Medicine] - 1 Week Milton Aden MD [Physician, Pulmonology] - 1 Week Discharge Medications: New sulfamethoxazole-trimethoprim [Bactrim DS] 800-160 mg tablet 1 tab PO Q12H Qty: 33 0RF Rx Instructions: Take 1 tablet daily with food twice a day for the next 16 days, ending on 11/27. prednisone 10 mg tablet 10 mg PO DIRECTED Qty: 63 0RF Rx Instructions: see taper instructions Take 60mg daily (6 tabs) x3 days, then Take 50mg daily (5 tabs) x3 days, then Take 40mg daily (4 tabs) x3 days, then Take 30mg daily (3 tabs) x3 days, then Take 20mg daily (2 tabs) x3 days, then Take 10mg daily (1 tab) x3 days urea 15 gram powder in packet 1 packet PO DAILY Qty: 8 0RF Rx Instructions: Take one packet daily. Follow up with nephrology to evaluate for continued use past this prescription Continued Xarelto 20 mg tablet 20 mg PO DAILY Qty: 90 1RF omeprazole 40 mg capsule,delayed release(DR/EC) 40 mg PO DAILY Qty: 90 0RF (DME) FreeStyle Lite Strips Strip Qty: 100 1RF Rx Instructions: twice a day and as needed sodium chloride 1,000 mg Tablet,Soluble 1,000 mg PO BID Qty: 60 1RF lisinopril 10 mg Tablet 10 mg PO DAILY Qty: 60 3RF ondansetron 8 mg Tablet,Disintegrating 8 mg PO Q8H PRN (Reason: Nausea And Vomiting) Qty: 60 0RF metformin 500 mg Tablet 500 mg PO BID Qty: 60 0RF oxycodone 5 mg tablet 5 mg PO BEDTIME Rx Instructions: Partial Fill upon patient request. Magic Mouthwash Diphen/Nystat/Antacid 1:1:1 240 mL suspension 10 ml PO BID Rx Instructions: nystatin 100,000 unit/mL oral suspension 80 mL; diphenhydramine 12.5 mg/5 mL oral liquid 80 mL; aluminum-mag hydroxide-simethicone 400 mg-400 mg-40 mg/5 mL oral susp 80 mL; Per 240 mL acetaminophen 325 mg Tablet 650 mg PO Q6H PRN (Reason: Pain) metoprolol tartrate 50 mg tablet 50 mg PO BID Qty: 180 3RF pravastatin 40 mg tablet 40 mg PO DAILY Qty: 90 3RF (DME) blood-glucose meter [FreeStyle Lite Meter] Kit Qty: 1 0RF Rx Instructions: As Directed (DME) lancets [FreeStyle Lancets] 28 gauge misc Qty: 100 0RF Rx Instructions: As Directed Discontinued dexamethasone 2 mg tablet 2 mg PO BEDTIME Discharge Orders: Discharge Order (Routine); Ordered 11/11/24 Ordered By: London Godoy Activity on Discharge: As tolerated Stand Alone Forms: Patient Portal Discharge page Print Language: Dominican Care Plan Goals: See below Health Concerns: Acute hypoxic respiratory failure with sepsis Pneumocystis jirovecii pneumonia Candidiasis Flash pulmonary edema CHF Hyponatremia Hemoptysis Plan of Treatment: You were admitted to the hospital for acute hypoxic respiratory failure and sepsis in the setting of pneumocystis jiroveci pneumonia as well as acute heart failure with preserved ejection fracture. You were treated with IV antibiotics, high dose IV steroids, as well as supplemental oxygen. You had a long hospital stay that was complicated by atrial fibrillation with rapid ventricular response treated with IV diltiazem; acute respiratory distress secondary to flash pulm onary edema requiring rescue BiPAP, diuresing, and brief stay in the ICU; acute on chronic hyponatremia requiring sodium supplementation and Nephrology consultation; as well as prolonged need for high-flow. You were eventually weaned to 4 L nasal cannula, and with gradual improvement to symptoms. You were seen and evaluated by Physical therapy who recommended short-term rehab, though you prefer to go home with visiting nurse services. You were also seen by respiratory and qualified for home oxygen. -- for pneumocystis jiroveci pneumonia, take Bactrim double strength twice a day for the next 16 days, ending on 11/27 -- you will be taking a prednisone taper for the next 18 days while on antibiotics, beginning with 60 mg daily for 3 days, then reducing dosage by 10 mg every 3 days. Ex: 60mg daily x3 days; 50mg daily x3 days; 40mg daily x3 days; 30mg daily x3 days; 20mg daily x3 days; and 10mg daily x3 days -- take urea 15 g daily as well as your home sodium chloride tablets twice a day for hyponatremia; follow up with nephrology to evaluate whether to continue taking urea -- Xarelto has been on hold for the past few days due to hemoptysis; resume Xarelto upon discharge, though stop if notice any bleeding -- follow up with PCP, Dr. Mcgill in Oncology, Dr. Aden in pulmonology, and Dr. Levine in Nephrology Assessment: See discharge summary Patient Instructions: Sulfamethoxazole/Trimethoprim (By mouth), Prednisone (By mouth) (Prednisone Intensol, Prednicot, Deltasone, Hardik)
--- NOTE | 2024-11-11 16:30 | W.MHC.F2F ---
Service Date Service Date: 11/11/24 Encounter Date of encounter: 11/11/24 Reasons for Services Signs and symptoms assessed: Generalized weakness, prolonged hospital stay, new home O2 oxygen requirement. Reason for senior living: wound care and medication management Reason for physical therapy: home safety and mobility and gait/transfer training Homebound: Leaving the home is medically contraindicated at this time without the asist of a device and/or another person due th the listed conditions above and below. Reason homebound: unsteady gait / fall risk, leg weakness, bedbound/chairbound, poor balance / fall risk and weakness related to hospital stay Certification: Based on the above findings, I certify that this patient is confined to the home and needs intermittent senior living care, physical therapy and/or speech therapy, or continues to need occupational therapy. The patient is under my care, and I have initiated the establishment of the plan of care. The patient will be followed by a physician who will periodically review the plan of care. Time Spent With Patient Time: Total time managing care of this patient today ____ minutes.
[2024-11-11] MEDS: Heparin Sodium,Porcine Flush 50 UNITS/5 ML SYRINGE IVFLUSH (16:47)
== END 2024-11-11 17:21 | disposition home health service (06) | DRG 871 ==
LOC: HO.ED 08:30 → HO.ICU 08:53 → HO.EDOVER 09:19 → HO.IMC 11:43 → HO.EDOVER 11:55 → HO.IMC 10-28 00:05 → HO.ICU 10-28 18:25 → HO.IMC 10-29 09:40
PROVIDERS: Family Medicine; Hospitalist; Internal Medicine; Internal Medicine Critical Care Medicine; Nurse Practitioner Family; Registered Nurse Community Health; Admitting Provider Internal Medicine Pulmonary Disease; Emergency Provider Emergency Medicine; PCP Internal Medicine; Visit Provider Student in an Organized Health Care Education/Training Program
DX: A41.9 Sepsis, unspecified organism (principal); B59 Pneumocystosis; I50.31 Acute diastolic (congestive) heart failure; J96.01 Acute respiratory failure with hypoxia; I48.19 Other persistent atrial fibrillation; C78.02 Secondary malignant neoplasm of left lung; C79.31 Secondary malignant neoplasm of brain; E87.21 Acute metabolic acidosis; D84.821 Immunodeficiency due to drugs; E22.2 Syndrome of inappropriate secretion of antidiuretic hormone; B37.0 Candidal stomatitis; E44.0 Moderate protein-calorie malnutrition; E11.9 Type 2 diabetes mellitus without complications; Z66 Do not resuscitate; E78.5 Hyperlipidemia, unspecified; C50.912 Malignant neoplasm of unspecified site of left female breast; K12.31 Oral mucositis (ulcerative) due to antineoplastic therapy; T45.1X5A Adverse effect of antineoplastic and immunosuppressive drugs, initial encounter; I11.0 Hypertensive heart disease with heart failure; E83.42 Hypomagnesemia; D63.0 Anemia in neoplastic disease; I95.9 Hypotension, unspecified; Z17.421 Hormone receptor negative with human epidermal growth factor receptor 2 negative status; E11.65 Type 2 diabetes mellitus with hyperglycemia; T36.7X5A Adverse effect of antifungal antibiotics, systemically used, initial encounter; Z68.20 Body mass index [BMI] 20.0-20.9, adult; Z20.822 Contact with and (suspected) exposure to COVID-19; Z95.0 Presence of cardiac pacemaker; Z79.60 Long term (current) use of unspecified immunomodulators and immunosuppressants; Z79.01 Long term (current) use of anticoagulants; Z79.84 Long term (current) use of oral hypoglycemic drugs; Z79.899 Other long term (current) drug therapy
CPT/HCPCS: 36415; 36600; 71045; 71275; 80048; 80051; 80053; 80202; 81001; 81003; 82040; 82436; 82803; 82947; 83605; 83615; 83735; 83880; 83935; 84100; 84133; 84145; 84300; 84484; 84550; 85007; 85027; 85610; 86146; 86403; 87040; 87070; 87205; 87305; 87633; 87637; 87640; 87641; 87798; 93005; 94640; 94660; 94799; 97162; 99285; J0131; J0692; J0737; J1163; J1642; J1720; J1885; J1938; J1956; J2270; J2405; J2865; J2919; J3374; J3465; J3475; J3480; J7120; J8540; P9047; Q9967

== ENCOUNTER → 2024-10-27 07:36 | Outpatient (BNV) | payer MEDICARE, SELFPAY | PROVIDERS: Admitting Provider Internal Medicine Pulmonary Disease; Emergency Provider Emergency Medicine; PCP Internal Medicine; Visit Provider Radiology Diagnostic Radiology | DX: R91.8 Other nonspecific abnormal finding of lung field (principal); R06.02 Shortness of breath | CPT/HCPCS: 71045; 71275 ==

== ENCOUNTER 2024-10-27 08:49 | Outpatient (BNV) | payer MEDICARE, SELFPAY | END 2024-10-28 18:08 | PROVIDERS: Admitting Provider Internal Medicine Pulmonary Disease; Emergency Provider Emergency Medicine; PCP Internal Medicine; Visit Provider Internal Medicine Cardiovascular Disease | DX: I48.91 Unspecified atrial fibrillation (principal); Z95.0 Presence of cardiac pacemaker | CPT/HCPCS: 93010 ==

== ENCOUNTER 2024-10-27 08:49 | Outpatient (BNV) | payer MEDICARE, SELFPAY | END 2024-11-04 08:29 | PROVIDERS: Admitting Provider Internal Medicine Pulmonary Disease; Emergency Provider Emergency Medicine; PCP Internal Medicine; Visit Provider Radiology Diagnostic Radiology | DX: R09.02 Hypoxemia (principal) | CPT/HCPCS: 71045 ==

== ENCOUNTER 2024-10-27 08:49 | Outpatient (BNV) | payer MEDICARE, SELFPAY | END 2024-11-02 10:17 | PROVIDERS: Admitting Provider Internal Medicine Pulmonary Disease; Emergency Provider Emergency Medicine; PCP Internal Medicine; Visit Provider Radiology Diagnostic Radiology | DX: R09.02 Hypoxemia (principal) | CPT/HCPCS: 71045 ==

== ENCOUNTER 2024-10-27 08:49 | Outpatient (BNV) | payer MEDICARE, SELFPAY | END 2024-10-29 18:45 | PROVIDERS: Admitting Provider Internal Medicine Pulmonary Disease; Emergency Provider Emergency Medicine; PCP Internal Medicine; Visit Provider Student in an Organized Health Care Education/Training Program | DX: I51.7 Cardiomegaly (principal) | CPT/HCPCS: 71045 ==

== ENCOUNTER 2024-10-27 08:49 | Outpatient (BNV) | payer MEDICARE, SELFPAY | END 2024-11-05 12:37 | PROVIDERS: Admitting Provider Internal Medicine Pulmonary Disease; Emergency Provider Emergency Medicine; PCP Internal Medicine; Visit Provider Radiology Diagnostic Radiology | DX: R09.02 Hypoxemia (principal) | CPT/HCPCS: 71045 ==

== ENCOUNTER 2024-10-27 08:49 | Outpatient (BNV) | payer MEDICARE, SELFPAY | END 2024-10-28 17:50 | PROVIDERS: Admitting Provider Internal Medicine Pulmonary Disease; Emergency Provider Emergency Medicine; PCP Internal Medicine; Visit Provider Radiology Diagnostic Radiology | DX: R07.9 Chest pain, unspecified (principal); R91.8 Other nonspecific abnormal finding of lung field | CPT/HCPCS: 71045 ==

== ENCOUNTER → 2024-10-27 08:49 | Outpatient (BNV) | payer MEDICARE, SELFPAY | PROVIDERS: Admitting Provider Internal Medicine Pulmonary Disease; Emergency Provider Emergency Medicine; PCP Internal Medicine; Visit Provider Student in an Organized Health Care Education/Training Program | DX: J96.01 Acute respiratory failure with hypoxia (principal); J18.9 Pneumonia, unspecified organism | CPT/HCPCS: 99223; 99232; 99233; 99499 ==

== ENCOUNTER → 2024-10-27 08:49 | Outpatient (BNV) | payer MEDICARE, SELFPAY | PROVIDERS: Admitting Provider Internal Medicine Pulmonary Disease; Emergency Provider Emergency Medicine; PCP Internal Medicine; Visit Provider Nurse Practitioner Family | DX: E87.1 Hypo-osmolality and hyponatremia (principal) | CPT/HCPCS: 99222; 99232 ==

== ENCOUNTER → 2024-10-27 08:49 | Outpatient (BNV) | payer MEDICARE, SELFPAY | PROVIDERS: Admitting Provider Internal Medicine Pulmonary Disease; Emergency Provider Emergency Medicine; PCP Internal Medicine; Visit Provider Internal Medicine Pulmonary Disease | DX: I48.91 Unspecified atrial fibrillation (principal); J96.01 Acute respiratory failure with hypoxia; J81.1 Chronic pulmonary edema | CPT/HCPCS: 99232 ==

== ENCOUNTER → 2024-10-27 08:49 | Outpatient (BNV) | payer MEDICARE, SELFPAY | PROVIDERS: Admitting Provider Internal Medicine Pulmonary Disease; Emergency Provider Emergency Medicine; PCP Internal Medicine; Visit Provider Internal Medicine | DX: J96.01 Acute respiratory failure with hypoxia (principal); A41.9 Sepsis, unspecified organism; R65.20 Severe sepsis without septic shock | CPT/HCPCS: 99232 ==

== ENCOUNTER → 2024-10-27 08:49 | Outpatient (BNV) | payer MEDICARE, SELFPAY | PROVIDERS: Admitting Provider Internal Medicine Pulmonary Disease; Emergency Provider Emergency Medicine; PCP Internal Medicine; Visit Provider Internal Medicine Cardiovascular Disease | DX: I48.19 Other persistent atrial fibrillation (principal) | CPT/HCPCS: 93010; 99222 ==

== ENCOUNTER → 2024-10-27 08:49 | Outpatient (BNV) | payer MEDICARE, SELFPAY | PROVIDERS: Admitting Provider Internal Medicine Pulmonary Disease; Emergency Provider Emergency Medicine; PCP Internal Medicine; Visit Provider Internal Medicine | DX: C50.912 Malignant neoplasm of unspecified site of left female breast (principal) | CPT/HCPCS: 99232 ==

== ENCOUNTER → 2024-10-27 08:49 | Outpatient (BNV) | payer MEDICARE, SELFPAY | PROVIDERS: Admitting Provider Internal Medicine Pulmonary Disease; Emergency Provider Emergency Medicine; PCP Internal Medicine; Visit Provider Registered Nurse Community Health | DX: I48.91 Unspecified atrial fibrillation (principal); J96.01 Acute respiratory failure with hypoxia; J81.0 Acute pulmonary edema | CPT/HCPCS: 99291 ==

== ENCOUNTER 2024-11-25 14:20 | Outpatient (REF) | payer MEDICARE, SELFPAY ==
[2024-11-25 14:24] LABS: MANUAL DIFF FLAG NO
[2024-11-25 14:29] LABS: Hematocrit 26.2 % (37.0-47.0); Hemoglobin 8.7 g/dl (12.0-16.0); Imm Gran Abs Auto 0.17 X10*3/uL (0.00-0.03); Imm Gran Pct Auto 1.9 % (0.0-0.4); Lymphocytes Absolute Auto 0.8 X10*3/uL (1.2-4.9); Mean Corpuscular HGB Conc 33.2 g/dl (31.0-35.0); Mean Corpuscular Hemoglobin 31.6 pg (27.0-33.0); Mean Corpuscular Volume 95.3 fL (80.0-98.0); NRBC Abs Auto 0.000 X10*3/uL (0.0-0.012); NRBC Pct Auto 0.0 /100WBC (0.0-0.2); Platelet Count 131 X10*3/uL (160-400); Red Blood Count 2.75 X10*6/uL (4.20-5.50); White Blood Count 8.7 X10*3/uL (4.8-10.8)
[2024-11-25 15:19] LABS: Alanine Aminotransferase 19 U/L (0-31); Albumin Level 3.2 g/dL (3.5-5.0); Alkaline Phosphatase 66 U/L (39-117); Anion Gap 14 (12-20); Aspartate Amino Transferase 18 U/L (5-31); Blood Urea Nitrogen 23 mg/dL (9-16); Calcium 8.5 mg/dL (8.4-10.2); Carbon Dioxide 19 mmol/L (22-29); Chloride 99 mmol/L (96-108); Estimated Glomerular Filt Rate > 60; Potassium 5.4 mmol/L (3.3-5.1); Sodium 127 mmol/L (135-145); Total Protein 5.4 g/dL (6.5-8.0)
--- OUTSIDE RECORDS SUMMARY | 2024-11-25 17:40 | XMS_ITS ---
Author Organization [facility] Address [address] [place] [address] Phone Care Team Providers Care Design Agent Name Role Phone Maurilio Carias MD Primary Care Provider [phone] Active Problems Problem Noted Date Diagnosed Date Breast cancer metastasized t o brain (CMS/HCC V24, CMS/HCC V28) 09/15/2024 PAF (paroxysmal atrial fibri llation) [...] of cardiac pacemaker 09/12/2022 HLD (hyperlipidemia) 09/12/2022 Current Oncology Plans No current plan information found. Past Plans No past plan information found. Radiation Treatments * Treatment Site Started On Last Treated On Elapsed Days Fractions Complete Last Fraction Dose Given/Prescribed Total Dose Given/Prescribed Technique Right Frontal Lobe 10/19/2024 10/23/2024 4 3 of 3 900 cGy / 900 cGy 2,700 c Gy / 2,700 cGy SRS/SRT_VM AT
--- OUTSIDE RECORDS SUMMARY | 2024-11-25 17:40 | XMS_ITS | Clinical Summary ---
Author Organization 175 [facility] Address [address] [place] [address] Phone Care Team Providers Care Air Operations Manager Name Role Phone Maurilio Carias MD Primary Care Provider [phone] Allergies Active Allergy Reactions Criticality Noted Date [...] 5 Active dexAMETHasone (DECADRON) 2 mg tablet TAKE ONE TABLET BY MOUTH TWICE A DAY 60 tablet 5 Active Additional Information Patient taking differently:2 mg oralDaily, Reported on 10/23/2024 ondansetron (ZOFRAN) 8 mg tablet Take 1 tablet (8 mg total) by mouth every 8 (eight) hours if needed for nausea or vomiting. Active diphenhydramine -aluminum-magne sium-simethicon e-lidocaine (MAGIC MOUTHWASH) [phone] 00 mg/30 mL liquid suspension Use 10 mL in the mouth or throat 3 (three) times a day if needed. 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 ([facility]/HCC V24, [facility]/HCC V28) (Primary Dx) Discharge Disposition: Home or Self Care 10/23/2024 1:52 PM EDT - 10/23/2024 11:59 PM EDT Hospital Encounter [facility] Radiation Oncology [address] [place] [phone] Yarely Bird MD Discharge Disposition: Home or Self Care 10/21/2024 2:00 PM EDT - 10/21/2024 11:59 PM EDT Hospital Encounter [facility] Radiation Oncology [address] [place] [phone] Yarely Bird MD 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 ([facility]/HCC V24, [facility]/HCC V28) (Primary Dx) Discharge Disposition: Home or Self Care 10/19/2024 1:53 PM EDT - 10/19/2024 11:59 PM EDT Hospital Encounter [facility] Radiation Oncology [address] [place] [phone] Yarely Bird MD Discharge Disposition: Home or Self Care 10/14/2024 10:23 AM EDT - 10/14/2024 11:59 PM EDT Hospital Encounter [facility] Radiation Oncology [address] [place] [phone] Discharge Disposition: Home or Self Care 10/13/2024 5:00 PM EDT - 10/13/2024 11:59 PM EDT Hospital Encounter [facility] CT Scan [address] [place] [phone] Secondary malignant neoplasm of brain ([facility]/HCC V24, [facility]/HCC V28) Discharge Disposition: Home or Self Care 10/12/2024 Telephone [facility] Radiation Oncology [address] [place] [phone] Kylah Bob RN 09/29/2024 10:00 AM EDT - 09/29/2024 11:59 PM EDT Hospital Encounter [facility] Radiation Oncology [address] [place] [phone] Johnathan Stearns MD Metastasis to brain (CMS/HCC V24, CMS/HCC V28) (Primary Dx); Breast cancer metastasized to brain (CMS/HCC V24, CMS/HCC V28) Discharge Disposition: Home or Self Care 09/29/2024 9:15 AM EDT - 09/29/2024 11:59 PM EDT Hospital Encounter [facility] Radiation Oncology [address] [place] [phone] 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 (CMS/HCC V24, CMS/HCC V28) (Primary Dx) Discharge Disposition: Home or Self Care 09/21/2024 [facility] [address] [phone] Felicia Carranza PA 09/16/2024 7:26 AM EDT - 09/16/2024 11:59 PM EDT Hospital Encounter [facility] PET Scan [address] [place] [phone] Lung mass; 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 (CMS/HCC V24, CMS/HCC V28) Discharge Disposition: Home or Self Care 09/15/2024 12:40 PM EDT - 09/15/2024 11:59 PM EDT Hospital Encounter [facility] Radiation Oncology [address] [place] [phone] Yarely Bird MD Breast cancer metastasized to brain (CMS/HCC V24, CMS/HCC V28) (Primary Dx); Secondary malignant neoplasm of brain (CMS/HCC V24, CMS/HCC V28) Discharge Disposition: Home or Self Care 09/15/2024 12:29 PM EDT - 09/15/2024 11:59 PM EDT Hospital Encounter [facility] Radiation Oncology [address] [place] [phone] Discharge Disposition: Home or Self Care 09/11/2024 10:30 AM EDT Consult Neurosurgery [facility] [address] [facility] [address] [place] [address] Felicia Carranza PA Primary breast malignancy, left ([facility] V24, [facility] V28) 09/10/2024 Telephone [facility] Radiation Oncology [address] [place] [phone] Diana Tierney MA 09/09/2024 Telephone [facility] Radiation Oncology [address] [place] [phone] Diana Tierney MA 09/09/2024 [facility] Radiation Oncology [address] [place] [phone] Diana Tierney MA 09/07/2024 [facility] Radiation Oncology [address] [place] [phone] Diana Tierney MA from Last 3 Months Surgical History Surgery Date Site/Laterality Comments COLONOSCOPY MASTECTOMY Left left - 07/04/22 BREAST LUMPECTOMY Left left breast APPENDECTOMY CARDIAC PACEMAKER PLACEMENT CHOLECYSTECTOMY TUBAL LIGATION Medical History Medical History Date Comments Hyperglycemia PUD (peptic ulcer disease) Essential hypertension PAF (paroxysmal atrial fibri llation) ([facility] V24, [facility] V28) Vertigo Pacemaker GERD (gastroesophageal reflux disease) Hypercholesteremia Breast cancer ([facility] V24, [facility] V28) 10/2021 Left infiltrating ductal carcinoma, triple [...] Orientation Straight 10/01/2024 12 :38 PM EDT Obstetrics History Last Filed Vital Signs Vital [...] Info) Description 11/27/2024 8:30 AM EDT Appointment [facility] Radiation Oncology [address] [place] [phone] Yarely Bird MD [address] [place] [address] Health Maintenance Due Date Last Done Comments Breast Cancer Screening 1955 DTaP,Tdap,and Td Vaccines (1 - Tdap) 1973 Zoster Vaccines (1 of 2) 1973 RSV Immunization Adult Patients (1 - Risk 60-74 years 1-dose series) 2014 Cholesterol Screening (Lipid Panel) 02/19/2022 Colorectal Cancer Screening: Colonoscopy 02/19/2022 Falls Risk Assessment 02/19/2022 Hepatitis C Screening 02/19/2022 Medicare Annual Wellness Visit 02/19/2022 Osteoporosis Screening (Bone Density Screening) 02/19/2022 Social Influencers of Health Screening 02/19/2022 Depression Screening 03/18/2024 COVID-19 Vaccine (5 - Pfizer risk 2023- season) 2024 01/07/2024, 02/21/2021, 07/05/2020, Additional history [...] Procedure Name Priority Date/Time Associated Diagnosis Comments RAD ONC MSQ TREATMENT SUMMARY Routine 10/23/2024 2:16 PM EDT RAD ONC MSQ TREATMENT SUMMARY Routine 10/21/2024 2:20 PM EDT RAD ONC MSQ TREATMENT SUMMARY Routine 10/19/2024 2:[address] HEAD WO AND W CONTRAST STAT 10/13/2024 5:38 PM EDT Secondary malignant neoplasm of brain (CMS/HCC V24, CMS/HCC V28) PET CT SKULL TO MID THIGH INITIAL Routine 09/16/2024 9:41 AM EDT Lung mass 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 (CMS/HCC V24, CMS/HCC V28) TISSUE EXAM Routine 09/14/2024 7:[address] REPORT Routine 09/03/2024 7: [address] REPORT Routine 08/31/2024 7: 51 AM EDT from Last 3 Months Results * Rad Onc Msq Treatment Summary (10/23/2024 2:16 PM EDT) Treatment Site Right Frontal Lobe [employer] RADIATION ONCOLOGY Course Number 1 MOSAIQ RADIATION ONCOLOGY Prescribed Fractional Dose 900 cGray MOSAIQ RADIATION ONCOLOGY Prescribed Total Dose 2,700 cGray MOSAIQ RADIATION ONCOLOGY Actual Fractions Delivered 3 MOSAIQ RADIATION ONCOLOGY Prescription Pattern Comment Joshua-[place] Test prior each fraction MOSAIQ RADIATION ONCOLOGY Actual Session Delivered Dose 900 cGray MOSAIQ RADIATION ONCOLOGY Actual Total Dose 2,700 cGray MOSAIQ RADIATION ONCOLOGY Prescribed Technique SRS/SRT_VMAT MOSAIQ RADIATION ONCOLOGY Elapsed Days 4 MOSAIQ RADIATION ONCOLOGY Start Date 10/19/2024 MOSAIQ RADIATION ONCOLOGY Last Date 10/23/2024 MOSAIQ RADIATION ONCOLOGY Prescribed Number of Fractions 3 MOSAIQ RADIATION ONCOLOGY 10/23/2024 2:16 PM EDT Physician Radiation Oncology RADIATION ONCDMITRIY GY ORDERABLES Final Result Performing Organization Address City/[facility]/ZIP Co de Phone Number MOSAIQ RADIATION ONCOLOGY * Rad Onc Msq Treatment Summary (10/21/2024 2:20 PM EDT) Treatment Site Right Frontal Lobe MOSAIQ RADIATION ONCOLOGY Course Number 1 MOSAIQ RADIATION ONCOLOGY Prescribed Fractional Dose 900 cGray MOSAIQ RADIATION ONCOLOGY Prescribed Total Dose 2,700 cGray MOSAIQ RADIATION ONCOLOGY Actual Fractions Delivered 2 MOSAIQ RADIATION ONCOLOGY Prescription Pattern Comment Joshua-[place] Test prior each fraction MOSAIQ RADIATION ONCOLOGY Actual Session Delivered Dose 900 cGray MOSAIQ RADIATION ONCOLOGY Actual Total Dose 1,800 cGray MOSAIQ RADIATION ONCOLOGY Prescribed Technique SRS/SRT_VMAT MOSAIQ RADIATION ONCOLOGY Elapsed Days 2 MOSAIQ RADIATION ONCOLOGY Start Date 10/19/2024 MOSAIQ RADIATION ONCOLOGY Last Date 10/21/2024 MOSAIQ RADIATION ONCOLOGY Prescribed Number of Fractions 3 MOSAIQ RADIATION ONCOLOGY 10/21/2024 2:20 PM EDT Physician Radiation Oncology RADIATION ONCDMITRIY GY ORDERABLES Final Result MOSAIQ RADIATION ONCOLOGY * Rad Onc Msq Treatment Summary (10/19/2024 2:17 PM EDT) Treatment Site Right Frontal Lobe MOSAIQ RADIATION ONCOLOGY Course Number 1 MOSAIQ RADIATION ONCOLOGY Prescribed Fractional Dose 900 cGray MOSAIQ RADIATION ONCOLOGY Prescribed Total Dose 2,700 cGray MOSAIQ RADIATION ONCOLOGY Actual Fractions Delivered 1 MOSAIQ RADIATION ONCOLOGY Prescription Pattern Comment Joshua-[place] Test prior each fraction MOSAIQ RADIATION ONCOLOGY Actual Session Delivered Dose 900 cGray MOSAIQ RADIATION ONCOLOGY Actual Total Dose 900 cGray MOSAIQ RADIATION ONCOLOGY Prescribed Technique SRS/SRT_VMAT MOSAIQ RADIATION ONCOLOGY Elapsed Days 0 MOSAIQ RADIATION ONCOLOGY Start Date 10/19/2024 MOSAIQ RADIATION ONCOLOGY Last Date 10/19/2024 MOSAIQ RADIATION ONCOLOGY Prescribed Number of Fractions 3 MOSAIQ RADIATION ONCOLOGY 10/19/2024 2:17 PM EDT us Physician Radiation Oncology RADIATION ONCOLO GY ORDERABLES Final Result MOSAIQ RADIATION ONCOLOGY * CT Head wo and w Contrast (10/13/2024 5:38 PM EDT) Anatomical Region Laterality Modality Head and Neck Computed Tomogra phy 10/13/2024 6:19 PM EDT Impressions 10/13/2024 6:19 PM EDT Impression: 1. 15 mm rim enhancing lesion within the right frontal lobe concerning for cerebral metastases. There is a minimal surrounding vasogenic edema without significant mass effect or midline shift. 2. No other lesions or other evidence of acute intracranial abnormality. This document has been electronically signed by: Leonard Gaffney MD on 10/13/2024 18:19:22 Narrative 10/13/2024 6:19 PM EDT INDICATION: Brain metastases, staging CT head with and without contrast Comparison: None Findings: There is a rim enhancing lesions within right frontal lobe measuring up to 15 mm cross-sectional dimension (6; 46), and 11 mm craniocaudad dimension (801; 33). There is trace surrounding vasogenic edema, without resultant mass effect. No intracranial mass, midline shift, hydrocephalus, or intracranial hemorrhage. Vasculature unremarkable. Orbits, paranasal sinuses, mastoid air cells unremarkable. No skull fracture Procedure Note Leonard Gaffney MD - 10/13/2024 INDICATION: Brain metastases, staging CT head with and without contrast Comparison: None Findings: There is a rim enhancing lesions within right frontal lobe measuring upto 15 mm cross-sectional dimension (6; 46), and 11 mm craniocaudaddimension (801; 33). There is trace surrounding vasogenic edema, without resultant mass effect. No intracranial mass, midline shift, hydrocephalus, or intracranial hemorrhage. Vasculature unremarkable. Orbits, paranasal sinuses, mastoid air cells unremarkable. No skull fracture IMPRESSION: Impression: 1. 15 mm rim enhancing lesion within the right frontal lobe concerningfor cerebral metastases. There is a minimal surrounding vasogenic edema without significant mass effect or midline shift. 2. No other lesions or other evidence of acute intracranial abnormality. This document has been electronically signed by: Leonard Gaffney MD on 10/13/2024 18:19:22 us Jackie Sim ENGRAVING OPERATOR IMG CT PROCEDURES Fin al Result * PET CT Skull to Mid Thigh [...] Signed Date: 09/22/2024 05:23 ET Workstation ID: [id number] Transcribed By: Self Edit Transcribed Date: 09/22/2024 [...] left retropectoral/axillary region which may correspond to christiano activity measuring up to SUV [...] 4.2. Left-sided subclavian approach pacing device. Right-sided Yrlf-J-Jluoefre tip in the cavoatrial junction. Thoracic aortic [...] Signed Date: 09/22/2024 05:23 ET Workstation ID: [id number] Transcribed By: Self Edit Transcribed Date: 09/22/2024 04:48 ET Renate Mcgill MD IMG NM PROCEDURES Final Result * Tissue exam (09/14/2024 7:48 AM EDT) Tissue Historical Provider LAB PATHOLOGY ORDERABLES Final Result * External CT Report (09/03/2024 7:50 AM EDT) Only the most recent of2 resultswithin the time period is included. Anatomical Region Laterality Modality Computed Tomogra phy Historical Provider MD R[place] CT PROCEDURES Final R esult from Last 3 Months Insurance BLUE CROSS - [place] MEDIC[place] AD[place]ANTAGE Care Teams Air Operations Manager Relationship Specialty Start Date End Date Maurilio Carias MD [address] [place] [address] [address] [facility] [place] [address] PCP - General 09/12/22
== END 2024-11-25 14:21 | disposition home or self-care (01) ==
LOC: HO.HVNA 14:20
PROVIDERS: Visit Provider Internal Medicine
DX: C50.912 Malignant neoplasm of unspecified site of left female breast (principal)
CPT/HCPCS: 36415; 80053; 85025

== ENCOUNTER 2024-12-01 14:00 | Outpatient (REF) | payer MEDICARE, SELFPAY ==
[2024-12-01 16:18] LABS: MANUAL DIFF FLAG NO
[2024-12-01 16:19] LABS: Hematocrit 23.4 % (37.0-47.0); Hemoglobin 8.2 g/dl (12.0-16.0); Imm Gran Abs Auto 0.37 X10*3/uL (0.00-0.03); Imm Gran Pct Auto 4.9 % (0.0-0.4); Lymphocytes Absolute Auto 1.3 X10*3/uL (1.2-4.9); Mean Corpuscular HGB Conc 35.0 g/dl (31.0-35.0); Mean Corpuscular Hemoglobin 33.1 pg (27.0-33.0); Mean Corpuscular Volume 94.4 fL (80.0-98.0); NRBC Abs Auto 0.000 X10*3/uL (0.0-0.012); NRBC Pct Auto 0.0 /100WBC (0.0-0.2); Platelet Count 124 X10*3/uL (160-400); Red Blood Count 2.48 X10*6/uL (4.20-5.50); White Blood Count 7.5 X10*3/uL (4.8-10.8)
[2024-12-01 16:30] LABS: Alanine Aminotransferase 21 U/L (0-31); Albumin Level 2.8 g/dL (3.5-5.0); Alkaline Phosphatase 68 U/L (39-117); Anion Gap 12 (12-20); Aspartate Amino Transferase 17 U/L (5-31); Blood Urea Nitrogen 14 mg/dL (9-16); Calcium 8.3 mg/dL (8.4-10.2); Carbon Dioxide 21 mmol/L (22-29); Chloride 104 mmol/L (96-108); Estimated Glomerular Filt Rate > 60; Potassium 4.6 mmol/L (3.3-5.1); Sodium 132 mmol/L (135-145); Total Protein 5.1 g/dL (6.5-8.0)
--- OUTSIDE RECORDS SUMMARY | 2024-12-01 18:21 | XMS_ITS | Clinical Summary ---
Author Organization 175 [facility] Address [address] [place] [address] Phone Care Team Providers Care Experience Design Director Name Role Phone Maurilio Carias MD Primary Care Provider [phone] Allergies Active Allergy Reactions Criticality Noted Date [...] Active diphenhydramine -aluminum-magne sium-simethicon e-lidocaine (MAGIC MOUTHWASH) [phone] 00 mg/30 mL liquid suspension Use 10 mL in the mouth or throat 3 (three) times a day if needed. Active Active Problems Problem Noted Date Diagnosed Date Breast cancer metastasized t o brain (CMS/[facility] V24, CMS/[facility] V28) 09/15/2024 PAF (paroxysmal atrial fibri llation) (CMS/HCC V24, CMS/[facility] V28) 09/12/2022 Overview (09/10/2024): Last Assessment & [...] - 10/23/2024 11:59 PM EDT Hospital Encounter [facility] Radiation Oncology [address] [place] [phone] Yarely Bird MD 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 ([facility]/HCC V24, [facility]/HCC V28) (Primary Dx) Discharge Disposition: Home or Self Care 10/23/2024 1:52 PM EDT - 10/23/2024 11:59 PM EDT Hospital Encounter [facility] Radiation Oncology [address] [place] [phone] Yarely Bird MD Discharge Disposition: Home or Self Care 10/21/2024 2:00 PM EDT - 10/21/2024 11:59 PM EDT Hospital Encounter [facility] Radiation Oncology [address] [place] [phone] Yarely Bird MD 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 ([facility]/HCC V24, [facility]/HCC V28) (Primary Dx) Discharge Disposition: Home or Self Care 10/19/2024 1:53 PM EDT - 10/19/2024 11:59 PM EDT Hospital Encounter [facility] Radiation Oncology [address] [place] [phone] Yarely Bird MD Discharge Disposition: Home or Self Care 10/14/2024 10:23 AM EDT - 10/14/2024 11:59 PM EDT Hospital Encounter [facility] Radiation Oncology [address] [place] [phone] Discharge Disposition: Home or Self Care 10/13/2024 5:00 PM EDT - 10/13/2024 11:59 PM EDT Hospital Encounter [facility] CT Scan [address] [place] [phone] Secondary malignant neoplasm of brain ([facility]/HCC V24, [facility]/HCC V28) Discharge Disposition: Home or Self Care 10/12/2024 Telephone [facility] Radiation Oncology [address] [place] [phone] Kylah Bob RN 09/29/2024 10:00 AM EDT - 09/29/2024 11:59 PM EDT Hospital Encounter [facility] Radiation Oncology [address] [place] [phone] Johnathan Stearns MD Metastasis to brain (CMS/HCC V24, CMS/HCC V28) (Primary Dx); Breast cancer metastasized to brain (CMS/HCC V24, CMS/HCC V28) Discharge Disposition: Home or Self Care 09/29/2024 9:15 AM EDT - 09/29/2024 11:59 PM EDT Hospital Encounter [facility] Radiation Oncology [address] [place] [phone] 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 (CMS/HCC V24, CMS/HCC V28) (Primary Dx) Discharge Disposition: Home or Self Care 09/21/2024 [facility] [address] [phone] Felicia Carranza PA 09/16/2024 7:26 AM EDT - 09/16/2024 11:59 PM EDT Hospital Encounter [facility] PET Scan [address] [place] [phone] Lung mass; 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 (CMS/HCC V24, CMS/HCC V28) Discharge Disposition: Home or Self Care 09/15/2024 12:40 PM EDT - 09/15/2024 11:59 PM EDT Hospital Encounter [facility] Radiation Oncology [address] [place] [phone] Yarely Bird MD Breast cancer metastasized to brain (CMS/HCC V24, CMS/HCC V28) (Primary Dx); Secondary malignant neoplasm of brain (CMS/HCC V24, CMS/HCC V28) Discharge Disposition: Home or Self Care 09/15/2024 12:29 PM EDT - 09/15/2024 11:59 PM EDT Hospital Encounter [facility] Radiation Oncology [address] [place] [phone] Discharge Disposition: Home or Self Care 09/11/2024 10:30 AM EDT Consult Neurosurgery [facility] [address] [facility] [address] [place] [phone] Felicia Carranza PA Primary breast malignancy, left ([facility] V24, [facility] V28) 09/10/2024 Telephone [facility] Radiation Oncology [address] [place] [phone] Diana Tierney MA 09/09/2024 Telephone [facility] Radiation Oncology [address] [place] [phone] Diana Tierney MA 09/09/2024 [facility] Radiation Oncology [address] [place] [phone] Diana Tierney MA 09/07/2024 [facility] Radiation Oncology [address] [place] [phone] Diana Tierney MA from Last 3 Months Surgical History Surgery Date Site/Laterality Comments COLONOSCOPY MASTECTOMY Left left - 07/04/22 BREAST LUMPECTOMY Left left breast APPENDECTOMY CARDIAC PACEMAKER PLACEMENT CHOLECYSTECTOMY TUBAL LIGATION Medical History Medical History Date Comments Hyperglycemia PUD (peptic ulcer disease) Essential hypertension PAF (paroxysmal atrial fibri llation) ([facility] V24, [facility] V28) Vertigo Pacemaker GERD (gastroesophageal reflux disease) Hypercholesteremia Breast cancer ([facility] V24, [facility] V28) 10/2021 Left infiltrating ductal carcinoma, triple [...] 09/11/2024 10:42 AM EDT Plan of Treatment Health Maintenance Due Date Last Done Comments [...] 03/18/2024 COVID-19 Vaccine (5 - Pfizer risk season) [...] 3 MOSAIQ RADIATION ONCOLOGY Prescription Pattern Comment Divya Test prior each fraction MOSAIQ RADIATION ONCOLOGY [...] 2:16 PM EDT Physician Radiation Oncology RADIATION ONCOLO GY ORDERABLES Final Result MOSAIQ RADIATION ONCOLOGY * Rad Onc Msq Treatment Summary (10/21/2024 2:20 PM EDT) Treatment Site Right Frontal Lobe MOSAIQ RADIATION ONCOLOGY Course Number 1 MOSAIQ RADIATION ONCOLOGY Prescribed Fractional Dose 900 cGray MOSAIQ RADIATION ONCOLOGY Prescribed Total Dose 2,700 cGray MOSAIQ RADIATION ONCOLOGY Actual Fractions Delivered 2 MOSAIQ RADIATION ONCOLOGY Prescription Pattern Comment Joshua-[place] Test prior each fraction MOSAIQ RADIATION ONCOLOGY [...] 1 MOSAIQ RADIATION ONCOLOGY Prescription Pattern Comment Joshua-[place] Test prior each fraction MOSAIQ RADIATION ONCOLOGY Actual Session Delivered Dose 900 cGray MOSAIQ RADIATION ONCOLOGY Actual Total Dose 900 cGray MOSAIQ RADIATION ONCOLOGY Prescribed Technique SRS/SRT_VMAT MOSAIQ RADIATION ONCOLOGY Elapsed Days 0 MOSAIQ RADIATION ONCOLOGY Start Date 10/19/2024 MOSAIQ RADIATION ONCOLOGY Last Date 10/19/2024 MOSAIQ RADIATION ONCOLOGY Prescribed Number of Fractions 3 MOSAAVIA RADIATION ONCOLOGY 10/19/2024 2:17 PM EDT us Physician Radiation Oncology RADIATION ONCOLO GY ORDERABLES Final Result MOSAEH RADIATION ONCOLOGY * CT Head wo and [...] Gaffney MD on 10/13/2024 18:19:22 us Jackie Norm Sim WINDMILL TECHNICIAN IMG CT PROCEDURES Fin al Result * [...] Signed Date: 09/22/2024 05:23 ET Workstation ID: [id number] Transcribed By: Self Edit Transcribed Date: 09/22/2024 [...] 4.2. Left-sided subclavian approach pacing device. Right-sided Gxgu-M-Bmaxixlv tip in the cavoatrial junction. Thoracic aortic [...] Signed Date: 09/22/2024 05:23 ET Workstation ID: [id number] Transcribed By: Self Edit Transcribed Date: 09/22/2024 04:48 ET Renate Mcgill MD IMKaren NM PROCEDURES Final Result * Tissue exam (09/14/2024 7:48 AM EDT) Tissue us Historical Provider LAB PATHOLOGY ORDERABLES Final Result * External CT Report (09/03/2024 7:50 AM EDT) Only the most recent of2 resultswithin the time period is included. Anatomical Region Laterality Modality Computed Tomogra phy us Historical Provider IMG CT PROCEDURES Final R esult from Last 3 Months Insurance BLUE CROSS - [place] AD[place] Care Teams Experience Design Director Relationship Specialty Start Date End Date Maurilio Carias MD [address] [place] [address] [address] [facility] [place] [address] PCP - General 09/12/22
--- OUTSIDE RECORDS SUMMARY | 2024-12-01 18:21 | XMS_ITS ---
Author Organization 175 [facility] Address [address] [place] [address] Phone Care Team Providers Care First Sampler Name Role Phone Maurilio Carias MD Primary Care Provider [phone] Active Problems Problem Noted Date Diagnosed Date [...]
== END 2024-12-01 14:01 | disposition home or self-care (01) ==
LOC: HO.HVNA 14:00
PROVIDERS: PCP Internal Medicine; Visit Provider Internal Medicine
DX: C50.912 Malignant neoplasm of unspecified site of left female breast (principal)
CPT/HCPCS: 36415; 80053; 85025

== ENCOUNTER 2024-12-08 14:00 | Outpatient (REF) | payer MEDICARE, SELFPAY ==
[2024-12-08 17:00] LABS: Hematocrit 21.2 % (37.0-47.0); Hemoglobin 7.1 g/dl (12.0-16.0); Mean Corpuscular HGB Conc 33.5 g/dl (31.0-35.0); Mean Corpuscular Hemoglobin 32.6 pg (27.0-33.0); Mean Corpuscular Volume 97.2 fL (80.0-98.0); NRBC Abs Auto 0.020 X10*3/uL (0.0-0.012); NRBC Pct Auto 0.3 /100WBC (0.0-0.2); Platelet Count 111 X10*3/uL (160-400); Red Blood Count 2.18 X10*6/uL (4.20-5.50); White Blood Count 7.8 X10*3/uL (4.8-10.8)
[2024-12-08 17:07] LABS: Alanine Aminotransferase 15 U/L (0-31); Albumin Level 2.6 g/dL (3.5-5.0); Alkaline Phosphatase 89 U/L (39-117); Anion Gap 9 (12-20); Aspartate Amino Transferase 19 U/L (5-31); Blood Urea Nitrogen 14 mg/dL (9-16); Calcium 8.6 mg/dL (8.4-10.2); Carbon Dioxide 23 mmol/L (22-29); Chloride 106 mmol/L (96-108); Estimated Glomerular Filt Rate > 60; Potassium 3.7 mmol/L (3.3-5.1); Sodium 134 mmol/L (135-145); Total Protein 5.2 g/dL (6.5-8.0)
--- OUTSIDE RECORDS SUMMARY | 2024-12-08 17:53 | XMS_ITS | Clinical Summary ---
Author Organization [facility] Address [address] [place] [address] Phone Care Team Providers Care Miller Head Wet Process Name Role Phone Maurilio Carias MD Primary Care Provider [phone] Allergies Active Allergy Reactions Criticality Noted Date [...] Active diphenhydramine -aluminum-magne sium-simethicon e-lidocaine (MAGIC MOUTHWASH) [phone] mg/30 mL liquid suspension Use 10 mL in the mouth or throat 3 (three) times a day if needed. 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 ([facility]/HCC V24, [facility]/HCC V28) (Primary Dx) Discharge Disposition: Home or Self Care 10/23/2024 1:52 PM EDT - 10/23/2024 11:59 PM EDT Hospital Encounter [facility] [address] [place] [phone] Yarely Bird MD Discharge Disposition: Home or Self Care 10/21/2024 2:00 PM EDT - 10/21/2024 11:59 PM EDT Hospital Encounter [facility] [address] [place] [phone] Yarely Bird MD 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 ([facility]/HCC V24, [facility]/HCC V28) (Primary Dx) Discharge Disposition: Home or Self Care 10/19/2024 1:53 PM EDT - 10/19/2024 11:59 PM EDT Hospital Encounter [facility] [address] [place] [phone] Yarely Bird MD Discharge Disposition: Home or Self Care 10/14/2024 10:23 AM EDT - 10/14/2024 11:59 PM EDT Hospital Encounter [facility] [address] [place] [phone] Discharge Disposition: Home or Self Care 10/13/2024 5:00 PM EDT - 10/13/2024 11:59 PM EDT Hospital Encounter [facility] CT Scan [address] [place] [phone] Secondary malignant neoplasm of brain ([facility]/HCC V24, [facility]/HCC V28) Discharge Disposition: Home or Self Care 10/12/2024 Telephone [facility] [address] [place] [phone] Kylah Bob RN 09/29/2024 10:00 AM EDT - 09/29/2024 11:59 PM EDT Hospital Encounter [facility] [address] [place] [phone] Johnathan Stearns MD Metastasis to brain (CMS/HCC V24, CMS/HCC V28) (Primary Dx); Breast cancer metastasized to brain (CMS/HCC V24, CMS/HCC V28) Discharge Disposition: Home or Self Care 09/29/2024 9:15 AM EDT - 09/29/2024 11:59 PM EDT Hospital Encounter [facility] [address] [place] [phone] 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 (CMS/HCC V24, CMS/HCC V28) (Primary Dx) Discharge Disposition: Home or Self Care 09/21/2024 [facility] [address] [phone] Felicia Carranza PA 09/16/2024 7:26 AM EDT - 09/16/2024 11:59 PM EDT Hospital Encounter [facility] PET Scan [address] [place] [phone] Lung mass; 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 (CMS/HCC V24, CMS/HCC V28) Discharge Disposition: Home or Self Care 09/15/2024 12:40 PM EDT - 09/15/2024 11:59 PM EDT Hospital Encounter [facility] [address] [place] [phone] Yarely Bird MD Breast cancer metastasized to brain (CMS/HCC V24, CMS/HCC V28) (Primary Dx); Secondary malignant neoplasm of brain (CMS/HCC V24, CMS/HCC V28) Discharge Disposition: Home or Self Care 09/15/2024 12:29 PM EDT - 09/15/2024 11:59 PM EDT Hospital Encounter [facility] [address] [place] [phone] Discharge Disposition: Home or Self Care 09/11/2024 10:30 AM EDT Consult Neurosurgery [facility] [address] [facility] [address] [place] [address] Felicia Carranza PA Primary breast malignancy, left ([facility] V24, [facility] V28) 09/10/2024 Telephone [facility] [address] [place] [phone] Diana Tierney MA 09/09/2024 Telephone [facility] [address] [place] [phone] Diana Tierney MA 09/09/2024 [facility] [address] [place] [phone] Diana Tierney MA 09/07/2024 [facility] [address] [place] [phone] Diana Tierney MA from Last 3 Months Surgical History Surgery Date Site/Laterality Comments COLONOSCOPY MASTECTOMY Left left - 07/04/22 BREAST LUMPECTOMY Left left breast APPENDECTOMY CARDIAC PACEMAKER PLACEMENT CHOLECYSTECTOMY TUBAL LIGATION Medical History Medical History Date Comments Hyperglycemia PUD (peptic ulcer disease) Essential hypertension PAF (paroxysmal atrial fibri llation) ([facility] V24, [facility] V28) Vertigo Pacemaker GERD (gastroesophageal reflux disease) Hypercholesteremia Breast cancer ([facility] V24, [facility] V28) 10/2021 Left infiltrating ductal carcinoma, triple [...] TISSUE EXAM Routine 09/14/2024 7:48 AM EDT from Last 3 Months Results * Rad Onc Msq Treatment Summary (10/23/2024 2:16 PM EDT) Treatment Site Right Frontal Lobe MOSAIQ RADIATION ONCOLOGY Course Number 1 MOSAIQ RADIATION ONCOLOGY Prescribed Fractional Dose 900 cGray MOSAIQ RADIATION ONCOLOGY Prescribed Total Dose 2,700 cGray MOSAIQ RADIATION ONCOLOGY Actual Fractions Delivered 3 MOSAIQ RADIATION ONCOLOGY Prescription Pattern Comment Joshua-Lulú Test prior each fraction MOSAIQ RADIATION ONCOLOGY [...] 2 MOSAIQ RADIATION ONCOLOGY Prescription Pattern Comment Joshua-Brixey Test prior each fraction MOSAIQ RADIATION ONCOLOGY [...] 2:20 PM EDT Physician Radiation Oncology RADIATION AGAPITO GY ORDERABLES Final Result MOSAIQ RADIATION ONCOLOGY * Rad Onc Msq Treatment Summary (10/19/2024 2:17 PM EDT) Treatment Site Right Frontal Lobe MOSAIQ RADIATION ONCOLOGY Course Number 1 MOSAIQ RADIATION ONCOLOGY Prescribed Fractional Dose 900 cGray MOSAIQ RADIATION ONCOLOGY Prescribed Total Dose 2,700 cGray MOSAIQ RADIATION ONCOLOGY Actual Fractions Delivered 1 MOSAIQ RADIATION ONCOLOGY Prescription Pattern Comment Joshua-Brixey Test prior each fraction MOSAIQ RADIATION ONCOLOGY [...] MD on 10/13/2024 18:19:22 us Jackie Sim LAST MODEL DEPARTMENT SUPERVISOR IMG CT PROCEDURES Fin al Result * [...] Signed Date: 09/22/2024 05:23 ET Workstation ID: [id number] Transcribed By: Self Edit Transcribed Date: 09/22/2024 [...] 4.2. Left-sided subclavian approach pacing device. Right-sided Hkvg-A-Wgsvhhai tip in the cavoatrial junction. Thoracic aortic [...] Signed Date: 09/22/2024 05:23 ET Workstation ID: [id number] Transcribed By: Self Edit Transcribed Date: 09/22/2024 04:48 ET Renate Mcgill MD IMG NM PROCEDURES Final Result * Tissue exam (09/14/2024 7:48 AM EDT) Tissue Historical Provider LAB PATHOLOGY ORDERABLES Final Result from Last 3 Months Insurance BLUE [employer] - [place] MEDICARE ADVANTAGE Care Teams Miller Head Wet Process Relationship Specialty Start Date End Date Maurilio Carias MD [address] [place] [address] [address] [facility] [place] [address] PCP - General 09/12/22
--- OUTSIDE RECORDS SUMMARY | 2024-12-08 17:53 | XMS_ITS ---
Author Organization 175 [facility] Address [address] [place] [address] Phone Care Team Providers Care Bag Bundler Name Role Phone Maurilio Carias MD Primary Care Provider Active Problems Problem Noted Date Diagnosed Date [...]
== END 2024-12-08 14:01 | disposition home or self-care (01) ==
LOC: HO.HVNA 14:00
PROVIDERS: PCP Internal Medicine; Visit Provider Internal Medicine
DX: J96.01 Acute respiratory failure with hypoxia (principal)
CPT/HCPCS: 36415; 80053; 85027

== ENCOUNTER 2024-12-23 11:00 | Outpatient (REF) | payer MEDICARE, SELFPAY ==
[2024-12-23 14:02] LABS: Hematocrit 31.4 % (37.0-47.0); Hemoglobin 10.7 g/dl (12.0-16.0); Mean Corpuscular HGB Conc 34.1 g/dl (31.0-35.0); Mean Corpuscular Hemoglobin 31.5 pg (27.0-33.0); Mean Corpuscular Volume 92.4 fL (80.0-98.0); NRBC Abs Auto 0.000 X10*3/uL (0.0-0.012); NRBC Pct Auto 0.0 /100WBC (0.0-0.2); Platelet Count 256 X10*3/uL (160-400); Red Blood Count 3.40 X10*6/uL (4.20-5.50); White Blood Count 10.1 X10*3/uL (4.8-10.8)
[2024-12-23 15:32] LABS: Alanine Aminotransferase < 6 U/L (0-31); Albumin Level 3.2 g/dL (3.5-5.0); Alkaline Phosphatase 105 U/L (39-117); Anion Gap 10 (12-20); Aspartate Amino Transferase 17 U/L (5-31); Blood Urea Nitrogen 10 mg/dL (9-16); Calcium 9.2 mg/dL (8.4-10.2); Carbon Dioxide 27 mmol/L (22-29); Chloride 106 mmol/L (96-108); Estimated Glomerular Filt Rate > 60; Potassium 3.7 mmol/L (3.3-5.1); Sodium 139 mmol/L (135-145); Total Protein 6.4 g/dL (6.5-8.0)
== END 2024-12-23 11:01 | disposition home or self-care (01) ==
LOC: HO.HVNA 11:00
PROVIDERS: PCP Internal Medicine; Visit Provider Internal Medicine
DX: E87.1 Hypo-osmolality and hyponatremia (principal); A41.9 Sepsis, unspecified organism
CPT/HCPCS: 36415; 80053; 85027

== ENCOUNTER 2025-01-19 11:13 | Observation (INO) | payer MEDICARE, SELFPAY ==
[2025-01-19] VITALS (23 sets, daily range): BP systolic 135–168; BP diastolic 61–99; PULSE 85–105; RESP 12–20; TEMP 36.2–36.7; O2SAT 93–98; BMI 18.6; BMI 19.9
--- NOTE | ~2025-01-19 | XR_ITS ---
EXAMINATION: XR CHEST CLINICAL INFORMATION: dyspneabreast cancer. COMPARISON: November 05, 2024. TECHNIQUE: Frontal view of the chest was obtained. FINDINGS: 8 cm masslike opacity extending from the superior right perihilar region to the periphery of the right upper hemithorax. Pulmonary reticular pattern. Blunting of the right costophrenic angle and to a lesser extent left costophrenic angle. Cardiomediastinal silhouette size is normal with prominent pulmonary artery outflow. Right-sided Port-A-Cath ends at the SVC. 2. Intact electrode leads in the right heart chambers. I do not see a metallic reservoir. Degenerative changes in the right shoulder with joint space narrowing at the acromiohumeral joint space. Multilevel spondylosis. XR/XR chest 1V IMPRESSION: Malignancy, right lung and likely bilateral small volume pleural effusions. Consider rotator cuff cough tendon tear, chronic/old, right shoulder. Electronically signed by: Remi Son MD 01/19/2025 01:10 PM [facility]
--- NOTE | ~2025-01-19 | CT_ITS ---
EXAMINATION: CT ABDOMEN AND PELVIS WITH CONTRAST CLINICAL INFORMATION: Left lower quadrant abdominal pain. 69-year-old female. History of brain metastases from breast CA. COMPARISON: 08/31/2024, 02/13/2023, and studies dating back to 04/24/2019. TECHNIQUE: Multidetector volumetric images were obtained from the superior aspect of the liver through the pubic symphysis following administration 85 mL of Omnipaque 350 intravenous contrast. Sagittal and coronal reformatted images were obtained on the technologist's workstation. Oral contrast: No This CT examination was performed using dose optimization techniques as appropriate, variously including the following: *Automated exposure control *Adjustment of mA and/or kV according to patient size (this includes techniques or standardized protocols for targeted exams where dose is matched to indication/reason for exam; i.e. extremities or head) *Use of iterative reconstruction technique FINDINGS: LUNG BASES: There is moderate cardiomegaly. There are pacer leads in the right atrium and right ventricle. There is a small pericardial effusion. There is a small layering right pleural effusion. There is mild passive atelectasis in the right lower lobe. The lung bases are otherwise grossly clear. LIVER, GALLBLADDER, AND BILIARY TREE: The liver is normal in size, shape, and attenuation. In segment 4A, there is an 8 mm nonspecific hypoattenuating focus (series 15, image 19). This was not well-seen on prior studies. There is a 7 mm hypoattenuating focus in segment 6 medially (series 15, image 28), also not previously seen. There is a 6 mm hypoattenuating focus in segment 7 (series 15, image 24), also not previously seen. No biliary ductal dilatation is present. The gallbladder is surgically absent. PANCREAS: Unremarkable. SPLEEN: Unremarkable. ADRENAL GLANDS: There is bilateral hyperplasia. KIDNEYS AND URETERS: The kidneys are normal in size, shape, and attenuation. No hydronephrosis, hydroureter, or calculi seen. No perinephric stranding. There is an upper pole simple cyst in the right kidney measuring 2.3 cm. There are tiny subcentimeter upper pole cysts in the left kidney. There is bilateral hypoattenuation of the renal pyramids, with peripheral enhancement, findings which are suspicious for bilateral papillary necrosis. BLADDER: Unremarkable. GASTROINTESTINAL TRACT: The stomach is largely decompressed. The duodenal sweep appears normal. The small bowel is normal in caliber and course. No wall thickening or inflammation is evident. The terminal ileum appears normal. The appendix is not well seen, and may be surgically absent. The colon is normal in course and caliber without wall thickening or inflammation. There is no rectal abnormality. ABDOMINAL WALL: No significant hernia is appreciated. LYMPH NODES: There is no abnormal lymphadenopathy present. VASCULAR: There is moderate atheromatous calcification of the aorta and iliac arteries, without evidence of aneurysm. PELVIC VISCERA: The uterus and adnexa are unremarkable. OSSEOUS STRUCTURES: There is no suspicious lytic or blastic bone lesion identified. There are mild degenerative changes throughout the spine, and involving both hip joints. CT/CT abdomen pelvis w IV con IMPRESSION: 1. Findings involving both kidneys which are suspicious for bilateral papillary necrosis. Would correlate with urinalysis. 2. Small layering right pleural effusion with associated passive atelectasis. There is cardiomegaly. There are pacer leads present. There is a small pericardial effusion. 3. There are 3 new hypoattenuating subcentimeter foci in the liver, not present on previous examinations, and not definitively representing cysts. These are indeterminant. Consider correlating with MRI given history of malignancy. 4. Additional ancillary findings as discussed in the body of the report. Electronically signed by: Minor Sim MD 01/19/2025 01:07 PM [facility]
--- NOTE | ~2025-01-19 | CT_ITS ---
EXAMINATION: CTA NECK WITH CONTRAST (STROKE) CTA BRAIN WITH CONTRAST (STROKE) CLINICAL INFORMATION: Left-sided weakness. Breast cancer. COMPARISON: September 03, 2024. TECHNIQUE: CTA of the head and neck was performed in the axial plane from the mediastinum to the skull vertex using 85 mL Omnipaque 350 intravenous contrast. Additional reformatted multiplanar images including maximum intensity projection MIP images are generated on the CT workstation. This CT examination was performed using dose optimization techniques as appropriate, variously including the following: *Automated exposure control *Adjustment of mA and/or kV according to patient size (this includes techniques or standardized protocols for targeted exams where dose is matched to indication/reason for exam; i.e. extremities or head) *Use of iterative reconstruction technique DLP: 671.55 mGy-cm FINDINGS: The degree of stenosis determined by criteria similar to NASCET. Inadequate arterial phase acquisition. Chest CTA: No aneurysm or dissection, thoracic aorta. Calcified plaques. Ancillary findings: 6.5 cm complex likely cavitary mass, right upper lung lobe/right pulmonary hilum with the right-sided pleural effusion. Multifocal patchy pulmonary groundglass and saccular bronchiectasis. Neck CTA: Right CCA: Normal patency. No focal stenosis. No intimal flap. Right ICA: Normal patency. No focal stenosis. No intimal flap. Left CCA: Normal patency. No focal stenosis. No intimal flap. Left ICA: Normal patency. No focal stenosis. No intimal flap. V1/V2 segments: Normal patency. No focal stenosis. No intimal flap. Right vertebral artery slightly dominant. Both origin from the subclavian arteries. Brain CTA: Anterior cerebral circulation: ICAs: Calcified plaques in the cavernous supraclinoid segments. Normal patency. No focal stenosis. No abrupt cut off. MCA's: Normal patency. No focal stenosis. No abrupt cut off. No vascular irregularity at the ICA terminus. ACAs: Normal patency. No focal stenosis. No abrupt cut off. No vascular abnormality. Ophthalmic arteries are patent without vascular irregularity. Anterior communicating artery is patent without abnormality. Posterior communicating arteries are patent without irregularity. Posterior cerebral circulation: V3/V4 segments segments: Normal patency. No focal stenosis. No intimal flap. Left ends in the left PICA. There is an apparent common trunk for the right anterior inferior posterior inferior cerebral arteries. Basilar artery: Normal patency. No focal stenosis. No intimal flap. Superior cerebellar arteries are patent. flight director: Hypoplastic/atretic right P1 segment. No focal stenosis. No abrupt cut off. Ancillary findings: No main cerebral venous sinus thrombosis. No gross abnormal enhancing mass in the intra-axial or the extra-axial compartment. Mucosal thickening and secretions, right maxillary sinus. Bone marrow inhomogeneity without gross lytic or blastic lesions. Right-sided Port-A-Cath tip is not included in the exam. Electrode leads in the superior vena cava no fully included in the [id number].. CT/CT angio head neck STROKE IMPRESSION: No main cerebral artery occlusion or embolus or gross aneurysm. No high degree stenosis or dissection. Malignancy/mass right perihilar right upper lung lobe with associated mediastinal lymphadenopathy, small to moderate volume pericardial effusion and right-sided pleural effusion likely malignant. This critical test result is communicated to: Emergency physician Dr. Giovanna More on January 19, 2025 at 12:42 PM. Electronically signed by: Remi Son MD 01/19/2025 12:53 PM [facility]
--- NOTE | ~2025-01-19 | CT_ITS ---
EXAMINATION: CT HEAD WITHOUT CONTRAST (STROKE PROTOCOL) CLINICAL INFORMATION: Stroke protocol. Left-sided deficits, history of brain tumor/breast metastases on eliquis. COMPARISON: 09/03/2024, 07/09/2022, 12/12/2021. TECHNIQUE: Contiguous axial imaging was performed from the skull base to vertex without intravenous administration of contrast. This CT examination was performed using dose optimization techniques as appropriate, variously including the following: *Automated exposure control *Adjustment of mA and/or kV according to patient size (this includes techniques or standardized protocols for targeted exams where dose is matched to indication/reason for exam; i.e. extremities or head) *Use of iterative reconstruction technique FINDINGS: There is no evidence of intracranial hemorrhage or extra-axial fluid collection. There is no mass effect, or edema. No CT evidence of acute territorial infarct. Ventricles, sulci, and cisterns are normal in size and configuration for patient age. No hydrocephalus. No midline shift. Negative hyperdense MCA sign. Negative insular ribbon sign. Patchy periventricular and deep white matter hypoattenuation is consistent with mild to moderate small vessel ischemic or treatment-related changes. There is focal left frontal white matter hypodensity, with a small focus of hyperattenuation in the middle frontal gyrus (series 6, image 29; series 2, images 30-31). This is likely dystrophic calcification related to treatment-related changes. Atheromatous calcification of the bilateral carotid siphons and V4 segments vertebral arteries bilaterally. Globes and orbital contents image normally. No extracranial soft tissue abnormalities. The paranasal sinuses, mastoid air cells, and tympanic cavities are normally aerated. No suspicious bony abnormalities. There are no acute fractures evident. There are degenerative changes in the right greater than left TM joints. CT/CT head for STROKE IMPRESSION: No definite acute intracranial abnormality. No CT evidence of acute territorial infarct. White matter findings which are most likely chronic, related to treatment-related changes, as detailed. This critical result was discussed with Dr. Giovanna More at 12:32 PM on 01/19/2025. It was ascertained that the content and urgency of the report was understood at the time of direct communication. Electronically signed by: Minor Sim MD 01/19/2025 12:37 PM [facility]
--- NOTE | 2025-01-19 11:19 | ED.GENADULT ---
HPI - General Adult General Chief complaint: Abdominal Pain Stated complaint: High BP Time Seen by Provider: 01/19/25 11:39 Source: patient, family and old records reviewed Mode of arrival: ambulatory Limitations: no limitations History of Present Illness ED Provider: DEWAYNE ASENCIO narrative: 69-year-old female with past medical history of hypertension, GERD, hyper cholesterolemia, AFib on Xarelto, PCP pneumonia, hyponatremia, stage IV metastatic breast cancer (not currently on chemo but possible restart of palliative chemo if she continues to regain her strength) currently under the care of Dr. Mcgill with known brain lesion status post stereotactic brain radiation therapy in October at [facility] she presents today with complaint of waking up and feeling a headache around 07:00 she denies any recent trauma and she noted at that time that she had a left upper extremity numbness and tingling she was initially not very forthcoming but on exam I noted left lower extremity weakness and she notes that started as well at 07:00. She tells me she gets up at 05:00 every morning to do her daily exercises and she felt fine at 05:00. She took Tylenol for the headache which did not really improve and she took her lisinopril and VNA came this morning. She also complains of left lower quadrant pain and has nausea she is scared to eat as she does not want to throw up, she initially denied diarrhea but the daughter noted she had nonbloody stools over the weekend. The patient has not had fevers. MD complaint: Headache, abdominal pain, numbness, weakness Onset (ago): hour(s) (7am) Location: head, abdomen, left, upper extremity and lower extremity Radiation: non-radiation Severity: moderate Quality: other Pain Consistency: constant Relieving factors: none Exacerbating factors: movement Associated symptoms: headaches and weakness Treatments prior to arrival: other Related Data Home Medications ?Medication ?Instructions ?Recorded ?Confirmed Magic Mouthwash 10 ml PO BID 10/27/24 10/27/24 Diphen/Nystat/Antacid 1:1:1 240 mL suspension acetaminophen 325 mg tablet 650 mg PO Q6H PRN Pain 10/27/24 10/27/24 oxycodone 5 mg tablet 5 mg PO BEDTIME 10/27/24 10/27/24 Previous Rx's ?Medication ?Instructions ?Recorded pravastatin 40 mg tablet 40 mg PO DAILY #90 tabs 03/16/24 metoprolol tartrate 50 mg tablet 50 mg PO BID #180 tabs 04/27/24 rivaroxaban 20 mg tablet (Xarelto) 20 mg PO DAILY #90 tabs 08/06/24 blood-glucose meter (FreeStyle #1 ea 09/16/24 Lite Meter kit) prednisone 10 mg tablet 10 mg PO DIRECTED #63 tabs 11/11/24 sulfamethoxazole 800 1 tab PO Q12H #33 tabs 11/11/24 mg-trimethoprim 160 mg tablet (Bactrim DS) urea 15 gram oral powder packet 1 packet PO DAILY #8 ea 11/11/24 omeprazole 40 mg capsule,delayed 40 mg PO DAILY #90 caps 11/12/24 release sodium chloride 1,000 mg soluble 1,000 mg PO BID #60 tabs 11/17/24 tablet ondansetron 8 mg disintegrating 8 mg PO Q8H PRN Nausea And 11/25/24 tablet Vomiting #60 tabs lisinopril 10 mg tablet 10 mg PO DAILY #60 tabs 12/10/24 blood sugar diagnostic (FreeStyle #100 ea 01/06/25 Lite Strips) lancets 28 gauge (FreeStyle #100 ea 01/06/25 Lancets) metformin 500 mg tablet 500 mg PO BID #60 tabs 01/06/25 Allergies Allergy/AdvReac Type Severity Reaction Status Date / Time latex (LATEX) Allergy Intermediate RASH WITH Verified 01/19/25 11:23 CONTACT Review of Systems Review of Systems: Constitutional : No Fever, No Chills, No Fatigue ENT/Mouth : No sore throat, No Rhinorrhea Eyes: No Eye Pain, No Swelling, No Redness Cardiovascular : No Chest Pain, pos SOB Respiratory : No Cough, No Sputum Gastrointestinal : pos Nausea, No Vomiting, No Diarrhea, pos abdominal Pain Genitourinary : No Dysuria, No Urinary Frequency, No Hematuria, Musculoskeletal : No joint pain, No Myalgias, No Joint Swelling Skin : No Skin Lesions, No rash Neuro : pos Weakness, pos Numbness, No Dizziness, positive Headache Psych : No Anxiety/Panic, No Depression Heme/Lymph: No Bruising, No Bleeding,No Lymphadenopathy Endocrine : No Polyuria, No Polydipsia All other systems reviewed and are negative [facility] Past Medical History Attestation statement: The following information was validated with the patient. 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) Pneumonitis Lymphadenopathy, mediastinal Lung mass Colon cancer screening Hyperglycemia Port-A-Cath in place On beta harley at home Abnormal ultrasound of breast Screening for breast cancer PUD (peptic ulcer disease) Essential hypertension PAF (paroxysmal atrial fibrillation) Vertigo Pacemaker (~2008) GERD (gastroesophageal reflux disease) Hypercholesteremia Surgical History History of lung biopsy Hx of colonoscopy History of left mastectomy (07/04/22) History of lumpectomy of left breast History of appendectomy History of permanent cardiac pacemaker placement History of cholecystectomy History of tubal ligation Family History Family History Mother No problems noted. Father No problems noted. Social History Social History Household Members: Family Housing: House Are you a primary managed care coordinator to a significant other at home: No Do you presently have visiting nurse or other home services: No Alcohol intake: never Patient Tobacco Use Status: Never used Tobacco Tobacco use type: Cigarette Smoked in Last 30 Days: No e-Cigarette/Vaping Use: Never Used Second Hand Smoke Exposure: No Use of substances other than those prescribed or required for medical reasons: No Advance Directives: Yes Advance Directives on File: Yes Advance Directives Date on File: 09/08/24 Do you have a plan to hurt others: No Plan service: No Current occupational status: retired 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 Oriented X3. No acute distress. Very soft-spoken Eyes: Pupils equal, round and reactive to light. ENT: Pharynx normal. Neck: Normal inspection. Neck supple. CVS: Normal heart rate and rhythm. Pulses normal. Respiratory: No respiratory distress. Breath sounds normal. Abdomen: Soft and nontender. Skin: Skin warm and dry. Normal skin color. Normal skin turgor. Extremities: No lower extremity edema. No calf ttp Neuro: Oriented X 3. On exam she has equal supervisor public health nursing but she has a drift on the left upper extremity, she reports decreased sensation to light touch in both left upper extremity and left lower extremity, she has obvious weakness of the left lower extremity she is unable to lift or raise the leg and has issues pending the knee she has weakness in plantar and dorsiflexion NIH Stroke Scale Internal: Initial- Upon Arrival Level of Consciousness: Alert Level of Consciousness Questions: Answers both questions correctly Level of Consciousness Commands: Performs both tasks correctly Best Gaze: Normal Visual: No visual loss Facial Palsy: Normal Motor Arm (Right): No drift Motor Arm (Left): Drift Motor Leg (Right): No drift Motor Leg (Left): Some effort against gravity Limb Ataxia: Absent Sensory: Mild to moderate sensory loss Best Language: No aphasia Dysarthia: Normal Extinction and Inattention: No abnormality Score: 4 Course Course Course Narrative: This is a rapid medical exam performed by Timoteo Smith NP: Additional HPI, ROS, PE not included below will be deferred to primary provider. Patient is a 69y/o F on palliative care, followed by Dr. Mcgill presenting with lower abdominal pain, high blood pressure readings, and numbness to left hand and foot. Also c/o headache. Has required blood transfusions in the past. Denies vomiting or diarrhea but reports nausea. Plan: labs, UA Medications Administered Generic Name Dose Route Start Last Admin Trade Name Freq PRN Reason Stop Dose Admin Magnesium Sulfate 2 gm in 50 mls @ 25 mls/hr 01/19/25 13:14 01/19/25 13:42 Magnesium Sulfate/H2o IV 01/19/25 15:13 25 mls/hr ONCE ONE Administration Discontinued Medications Generic Name Dose Route Start Last Admin Trade Name Freq PRN Reason Stop Dose Admin Iohexol 100 ml 01/19/25 12:27 01/19/25 12:28 Iohexol 350 Mg/Ml 100 Ml Infus..Btl IV 01/19/25 12:28 85 ml ONCE ONE Administration Morphine Sulfate 2 mg 01/19/25 12:05 01/19/25 12:47 Morphine Sulfate 4 Mg/Ml Cartridge IVPUSH 01/19/25 12:06 2 mg ONCE ONE Administration Protocol Ondansetron HCl 4 mg 01/19/25 12:05 01/19/25 12:48 Ondansetron Hcl 4 Mg/2 Ml Vial IVPUSH 01/19/25 12:06 4 mg ONCE ONE Administration Medical Decision Making Medical Decision Making [facility] Narrative: 6-year-old female with past medical history of hypertension, GERD, hyper cholesterolemia, AFib on Xarelto, PCP pneumonia, hyponatremia, stage IV metastatic breast cancer (not currently on chemo but possible restart of palliative chemo if she continues to regain her strength) currently under the care of Dr. Mcgill with known brain lesion status post radiation therapy who presents today with complaint of headaches and left-sided numbness and weakness, the weakness and numbness is present on exam - this is concerning for stroke versus hemorrhagic brain lesion versus new metastasis to the brain versus electrolyte abnormality, she is already on Xarelto and does not miss her medications she also presents 5 hours from the onset she would not be a TNK candidate given Xarelto use, as well as known brain lesions as well as she is outside of the window. For her abdominal pain I have ordered labs, urine, CT scan to evaluate for mass, renal colic, inflammation, constipation. I have ordered IV morphine as well Differential Diagnosis Differential Diagnoses: The differential diagnosis associated with the presentation includes New brain lesion, light abnormality, Mets to abdominal area, diverticular pathology, urinary pathology, intracranial hemorrhage, CVA Admission/Observation Consideration of admission/observation: Escalation of care including admission/observation considered Her pain is improved with IV morphine, there is no sign of acute infection on workup, her hemoglobin is around her baseline No new mass no intracranial hemorrhage no LVO it is unclear why she has left-sided deficits though she really can not walk in her left leg is not working She also has left upper extremity there could be some sort of spine pathology but she can not get an MRI and she is taking Xarelto so it would not be able to obtain spinal fluid for any signs of Mets, she also has no low back pain which would make it unlikely Plan to admit for further workup and IV pain control Lab Data [facility] Lab Attestation statement: I reviewed the patient's lab results. 01/19/25 12:41 01/19/25 12:41 Labs: Lab Results 01/19/25 01/19/25 01/19/25 Range/Units 12:09 12:16 12:41 WBC 9.6 (4.8-10.8) X10*3/uL RBC 2.96 L (4.20-5.50) X10*6/uL Hgb 8.9 L (12.0-16.0) g/dl Hct 27.4 L (37.0-47.0) % MCV 92.6 (80.0-98.0) fL MCH 30.1 (27.0-33.0) pg MCHC 32.5 (31.0-35.0) g/dl RDW 15.0 (11.0-16.0) % Plt Count 239 (160-400) X10*3/uL MPV 8.6 L (9.4-12.3) fL Immature Gran % (Auto) 0.5 H (0.0-0.4) % Neut % (Auto) 65.5 (45-73) % Lymph % (Auto) 23.3 (20-40) % [place] % (Auto) 8.4 (2-11) % Eos % (Auto) 2.1 (0-4) % Baso % (Auto) 0.2 (0-2) % Lymph # (Auto) 2.2 (1.2-4.9) X10*3/uL [place] # (Auto) 0.8 (0.1-1.2) X10*3/uL Eos # (Auto) 0.2 (0.0-0.4) X10*3/uL Baso # (Auto) 0.0 (0.0-0.2) X10*3/uL Abs Immat Gran (auto) 0.05 H (0.00-0.03) X10*3/uL Absolute Neuts (auto) 6.3 (2.0-8.3) x10*3/uL Absolute Nucleated RBC 0.000 (0.0-0.012) X10*3/uL Nucleated RBC % (auto) 0.0 (0.0-0.2) /100WBC PT 33.0 H D (10.9-12.4) SEC Whole Blood PT 34.7 H (11.1-13.5) sec INR 2.9 H (0.9-1.1) Whole Blood INR 2.9 H (0.9-1.1) Sodium 135 (135-145) mmol/L Potassium 3.4 (3.3-5.1) mmol/L Chloride 103 (96-108) mmol/L Carbon Dioxide 25 (22-29) mmol/L Anion Gap 10 L (12-20) BUN 9 (9-16) mg/dL Creatinine 0.53 (0.5-1.4) mg/dL Estim Creat Clear Calc 74.2 Estimated GFR > 60 POC Glucose 95 (60-115) mg/dL Random Glucose 82 (60-115) mg/dL Calcium 8.8 (8.4-10.2) mg/dL Magnesium 1.4 L* (1.6-2.6) mg/dL Total Bilirubin 0.3 (0.0-1.0) mg/dL AST 19 (5-31) U/L ALT < 6 (0-31) U/L Alkaline Phosphatase 58 (39-117) U/L Troponin I High Sens 7.6 D (<3.5-17.0) ng/L Total Protein 6.4 L (6.5-8.0) g/dL Albumin 3.2 L (3.5-5.0) g/dL Lipase 13 (8-78) U/L Urine Color Urine Appearance Urine pH (5.0-9.0) Ur Specific [place] (1.005-1.025) Urine Protein (Neg-Trace) mg/dL Urine Glucose (UA) (Negative) mg/dL Urine Ketones (Negative) mg/dL Urine Blood (Negative) Urine Nitrite (Negative) Ur Leukocyte Esterase (Negative) Blood Type O Positive Antibody Screen NEGATIVE 01/19/25 Range/Units 13:37 WBC (4.8-10.8) X10*3/uL RBC (4.20-5.50) X10*6/uL Hgb (12.0-16.0) g/dl Hct (37.0-47.0) % MCV (80.0-98.0) fL MCH (27.0-33.0) pg MCHC (31.0-35.0) g/dl RDW (11.0-16.0) % Plt Count (160-400) X10*3/uL MPV (9.4-12.3) fL Immature Gran % (Auto) (0.0-0.4) % Neut % (Auto) (45-73) % Lymph % (Auto) (20-40) % [place] % (Auto) (2-11) % Eos % (Auto) (0-4) % Baso % (Auto) (0-2) % Lymph # (Auto) (1.2-4.9) X10*3/uL [place] # (Auto) (0.1-1.2) X10*3/uL Eos # (Auto) (0.0-0.4) X10*3/uL Baso # (Auto) (0.0-0.2) X10*3/uL Abs Immat Gran (auto) (0.00-0.03) X10*3/uL Absolute Neuts (auto) (2.0-8.3) x10*3/uL Absolute Nucleated RBC (0.0-0.012) X10*3/uL Nucleated RBC % (auto) (0.0-0.2) /100WBC PT (10.9-12.4) SEC Whole Blood PT (11.1-13.5) sec INR (0.9-1.1) Whole Blood INR (0.9-1.1) Sodium (135-145) mmol/L Potassium (3.3-5.1) mmol/L Chloride (96-108) mmol/L Carbon Dioxide (22-29) mmol/L Anion Gap (12-20) BUN (9-16) mg/dL Creatinine (0.5-1.4) mg/dL Estim Creat Clear Calc Estimated GFR POC Glucose (60-115) mg/dL Random Glucose (60-115) mg/dL Calcium (8.4-10.2) mg/dL Magnesium (1.6-2.6) mg/dL Total Bilirubin (0.0-1.0) mg/dL AST (5-31) U/L ALT (0-31) U/L Alkaline Phosphatase (39-117) U/L Troponin I High Sens (<3.5-17.0) ng/L Total Protein (6.5-8.0) g/dL Albumin (3.5-5.0) g/dL Lipase (8-78) U/L Urine Color Yellow Urine Appearance Clear Urine pH 7.5 (5.0-9.0) Ur Specific [place] 1.015 (1.005-1.025) Urine Protein Negative (Neg-Trace) mg/dL Urine Glucose (UA) Negative (Negative) mg/dL Urine Ketones Negative (Negative) mg/dL Urine Blood Negative (Negative) Urine Nitrite Negative (Negative) Ur Leukocyte Esterase Negative (Negative) Blood Type Antibody Screen Independent Interpretation I performed an independent interpretation of an: EKG, Plain X-Ray (Mass with small pericardial effusion) and CT Scan (No intracranial hemorrhage, no LVO, right-sided pleural effusion small pericardial effusion) Interpretation: Rate: 98 Rhythm: AFib [place]: Normal Normal QRS complex. ST T wave : No ST-elevation qTC: 390 prior studies: No acute ischemia The study has been interpreted contemporaneously by me. . Radiology Impression Discussion of test interpretation with radiology: I have reviewed the radiologist's reading. Independent Historian Clinical information obtained from an independent historian. History obtained from or confirmed by: Other (Daughter) External Record Review External record reviewed: Inpatient record, Outpatient record, Prior outpatient labs and Prior outpatient radiology Critical Care Time Critical Care Time Critical Care Time: Yes Total Critical Care Time: 60 Attestation: Time is exclusive of separately billable procedures. Time includes: direct patient care, patient reassessment, coordination of patient care, interpretation of data (laboratory data, pulse oximetry, stroke protocol, chest xrays), review of patient's medical records, medical consultation and documentation of patient care. IV Magnesium to prevent life-threatening arrhythmia Procedures excluded from critical care time: electrocardiography. I attest to this time spent taking care of the patient Discharge Plan Discharge Clinical Impression: Acute left-sided muscle weakness, Hypomagnesemia, Lung mass, Malignant pleural effusion, Abdominal pain, acute, left lower quadrant Patient Disposition: Admitted As Inpatient Print Language: Ukrainian
--- NOTE | 2025-01-19 11:58 | MHC.EDTECH ---
pt has a port!
--- NOTE | 2025-01-19 12:05 | ECG_ITS ---
Test Reason : STROKE Blood Pressure : */* mmHG Vent. Rate : 98 BPM Atrial Rate : * BPM P-R Int : * ms QRS Dur : 76 ms QT Int : 306 ms P-R-T Axes : * 57 34 degrees QTcB Int : 390 ms Atrial fibrillation Septal infarct , age undetermined Abnormal ECG When compared with ECG of 28-Oct-2024 18:08, Atrial fibrillation has replaced Electronic ventricular pacemaker Referred By: Giovanna More Electronically Signed By: Toribio Lau
[2025-01-19 12:21] LABS: Prothrombin Time Whole Bld POC 34.7 sec (11.1-13.5); ~PT, ~INR - Anti Coag Clinic 2.9 (0.9-1.1)
[2025-01-19 12:22] LABS: Glucose, Whole Blood 95 mg/dL (60-115)
[2025-01-19] MEDS: iohexoL 350 MG/ML 100 ML INFUS..BTL IV (12:28)
[2025-01-19 12:45] LABS: MANUAL DIFF FLAG NO
[2025-01-19 12:47] LABS: Hematocrit 27.4 % (37.0-47.0); Hemoglobin 8.9 g/dl (12.0-16.0); Imm Gran Abs Auto 0.05 X10*3/uL (0.00-0.03); Imm Gran Pct Auto 0.5 % (0.0-0.4); Lymphocytes Absolute Auto 2.2 X10*3/uL (1.2-4.9); Mean Corpuscular HGB Conc 32.5 g/dl (31.0-35.0); Mean Corpuscular Hemoglobin 30.1 pg (27.0-33.0); Mean Corpuscular Volume 92.6 fL (80.0-98.0); NRBC Abs Auto 0.000 X10*3/uL (0.0-0.012); NRBC Pct Auto 0.0 /100WBC (0.0-0.2); Platelet Count 239 X10*3/uL (160-400); Red Blood Count 2.96 X10*6/uL (4.20-5.50); White Blood Count 9.6 X10*3/uL (4.8-10.8)
[2025-01-19 12:56] LABS: INTERNATIONAL NORM RATIO 2.9 (0.9-1.1); Prothrombin Time 33.0 SEC (10.9-12.4)
--- NOTE | 2025-01-19 13:00 | PC.NURSE ---
pt medicated per order
[2025-01-19 13:01] LABS: Lipase 13 U/L (8-78)
[2025-01-19 13:12] LABS: Troponin-I High Sensitivity 7.6 ng/L (<3.5-17.0)
[2025-01-19 13:15] LABS: Alanine Aminotransferase < 6 U/L (0-31); Albumin Level 3.2 g/dL (3.5-5.0); Alkaline Phosphatase 58 U/L (39-117); Anion Gap 10 (12-20); Aspartate Amino Transferase 19 U/L (5-31); Blood Urea Nitrogen 9 mg/dL (9-16); Calcium 8.8 mg/dL (8.4-10.2); Carbon Dioxide 25 mmol/L (22-29); Chloride 103 mmol/L (96-108); Creatinine Clr Calc Pharmacy 74.2; Estimated Glomerular Filt Rate > 60; Magnesium 1.4 mg/dL (1.6-2.6); Potassium 3.4 mmol/L (3.3-5.1); Sodium 135 mmol/L (135-145); Total Protein 6.4 g/dL (6.5-8.0)
--- NOTE | 2025-01-19 13:30 | PC.NURSE ---
Addendum entered by Macey Soto RN 01/19/25 19:31: pt afib on monitor- previously documented as nsr. Original Note: patient a&ox3, port accessed, labs drawn, ct scan and cxr performed, ekg performed, mold press operator applied- nsr on monitor, pt rr equal/non labored, mild weakness noted to lle in comparison to RLE- she states she had regular movement to LLE at 5am and this began after that. pt also c/o LLQ abd pain -09/24. family at bedside, call palencia within reach, plan of care ongoing.
[2025-01-19] MEDS: Magnesium Sulfate/H2O 2 GM/50 ML PIGGYBACK IV (13:42)
[2025-01-19 13:55] LABS: Appearance Urine Clear; Glucose Urine UA Negative (Negative); PH 7.5 (5.0-9.0); Specific Gravity - Urine 1.015 (1.005-1.025)
--- NOTE | 2025-01-19 14:32 | PHA.MEDREC ---
Pharmacy Consult ? Medication Reconciliation Pharmacy has completed the medication reconciliation. Utilized list from [facility]
--- NOTE | 2025-01-19 14:35 | MHC.EDTECH ---
patient is being transferred to [place]!
--- NOTE | 2025-01-19 15:05 | PM.IMHP ---
History of Present Illness Date of Service: 01/19/25 Chief Complaint: Weakness 69 year old women presenting with left upper and lower extremity weakness. She has a hx of breast cancer with lung and brain mets and follows with [facility] [place]. Patient reported headache pain this morning and left upper extremity numbness and tingling with left lower extremity weakness as well. She reported she was trying to do her exercises this morning and she had trouble lifting her left leg. She took some Tylenol for the headache but it really did not improve. She saw her visiting nurse this morning who told her to come into the ER to be evaluated. Over the weekend she was having some nonbloody diarrhea as well. She is not currently on chemotherapy but does have a PET scan coming up according to the patient. She did also receive stereotactic brain radiation therapy in October. Chest x-ray showing right-sided lung mass continues to be present. Head and neck CTA showing no main cerebral artery occlusion, embolus, aneurysm or high-grade stenosis. Malignancy/mass to the right perihilar right upper lung lobe with associated mediastinal lymphadenopathy noted malignant pleural effusion. She has no fever leukocytosis her magnesium was noted to be 1.4 likely secondary to diarrhea. She did receive 4 g of IV magnesium. Blood pressure is mildly elevated. Patient will be placed on observation for weakness. 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 Father No problems noted. Surgical History History of lung biopsy Hx of colonoscopy History of left mastectomy (07/04/22) History of lumpectomy of left breast History of appendectomy History of permanent cardiac pacemaker placement History of cholecystectomy History of tubal ligation Social History Household Members: Family Housing: House Are you a primary home care physical therapist to a significant other at home: No Do you presently have visiting nurse or other home services: No Alcohol intake: never Patient Tobacco Use Status: Never used Tobacco Tobacco use type: Cigarette Smoked in Last 30 Days: No e-Cigarette/Vaping Use: Never Used Second Hand Smoke Exposure: No Use of substances other than those prescribed or required for medical reasons: No Advance Directives: Yes Advance Directives on File: Yes Advance Directives Date on File: 09/08/24 Do you have a plan to hurt others: No Plan service: No Current occupational status: retired 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 Cognitive needs: No Hearing needs: No Vision needs: Yes Meds Allergies Allergy/AdvReac Type Severity Reaction Status Date / Time latex (LATEX) Allergy Intermediate RASH WITH Verified 01/19/25 11:23 CONTACT Active Medications: Current Medications Magnesium Sulfate (Magnesium Sulfate/H2o) 2 gm in 50 mls @ 25 mls/hr IV ONCE ONE Stop: 01/19/25 15:13 Last Admin: 01/19/25 13:42 Dose: 25 mls/hr Home Medications ?Medication ?Instructions ?Recorded ?Confirmed ?Last Taken ?Type Magic Mouthwash 10 ml PO BID 10/27/24 01/19/25 10/26/24 History Diphen/Nystat/Antacid 1:1:1 240 mL suspension acetaminophen 325 mg tablet 650 mg PO Q6H PRN Pain 10/27/24 01/19/25 Unknown History oxycodone 5 mg tablet 5 mg PO BEDTIME 10/27/24 01/19/25 10/26/24 History oxycodone 5 mg tablet 5 mg PO Q6H PRN Pain (Scale Score 01/19/25 01/19/25 Unknown History 7-10) rivaroxaban 20 mg tablet (Xarelto) 20 mg PO DAILY@1700 01/19/25 01/19/25 Unknown History Physical Exam Vital Signs and Narrative: Vital Signs: Last Vital Signs Temp 97.2 F 01/19/25 11:19 Pulse 92 01/19/25 14:24 Resp 15 01/19/25 14:24 BP 153/73 H 01/19/25 14:24 Pulse Ox 96 01/19/25 14:24 O2 Del Method Room Air 01/19/25 14:24 BMI result Body Mass Index 18.6 Appearing in no acute distress, mild facial swelling left greater than right head is normocephalic atraumatic eyes pupils are PERRLA sclera is anicteric mouth throat mucous membranes are intact and moist neck is supple no lymphadenopathy, no JVD noted lung sounds are clear to auscultation heart regular rate rhythm, clear S1, S2 positive bowel sounds, abdomen is soft, nontender neuro patient is alert x3, no focal deficits 4/5 strength to left upper left lower extremity Results Labs 01/19/25 12:41 01/19/25 12:41 Labs: Laboratory Results - last 24 hr 01/19/25 01/19/25 01/19/25 12:09 12:16 12:41 MCV 92.6 MCH 30.1 MCHC 32.5 RDW 15.0 Plt Count 239 MPV 8.6 L Immature Gran % (Auto) 0.5 H Neut % (Auto) 65.5 Lymph % (Auto) 23.3 [place] % (Auto) 8.4 Eos % (Auto) 2.1 Baso % (Auto) 0.2 Lymph # (Auto) 2.2 [place] # (Auto) 0.8 Eos # (Auto) 0.2 Baso # (Auto) 0.0 Abs Immat Gran (auto) 0.05 H Absolute Neuts (auto) 6.3 Absolute Nucleated RBC 0.000 Nucleated RBC % (auto) 0.0 PT 33.0 H D Whole Blood PT 34.7 H INR 2.9 H Whole Blood INR 2.9 H Anion Gap 10 L Estim Creat Clear Calc 74.2 Estimated GFR > 60 POC Glucose 95 Random Glucose 82 Calcium 8.8 Magnesium 1.4 L* Total Bilirubin 0.3 AST 19 ALT < 6 Alkaline Phosphatase 58 Troponin I High Sens 7.6 D Total Protein 6.4 L Albumin 3.2 L Lipase 13 Urine Color Urine Appearance Urine pH Ur Specific [place] Urine Protein Urine Glucose (UA) Urine Ketones Urine Blood Urine Nitrite Ur Leukocyte Esterase Blood Type O Positive Antibody Screen NEGATIVE 01/19/25 13:37 MCV MCH MCHC RDW Plt Count MPV Immature Gran % (Auto) Neut % (Auto) Lymph % (Auto) [place] % (Auto) Eos % (Auto) Baso % (Auto) Lymph # (Auto) [place] # (Auto) Eos # (Auto) Baso # (Auto) Abs Immat Gran (auto) Absolute Neuts (auto) Absolute Nucleated RBC Nucleated RBC % (auto) PT Whole Blood PT INR Whole Blood INR Anion Gap Estim Creat Clear Calc Estimated GFR POC Glucose Random Glucose Calcium Magnesium Total Bilirubin AST ALT Alkaline Phosphatase Troponin I High Sens Total Protein Albumin Lipase Urine Color Yellow Urine Appearance Clear Urine pH 7.5 Ur Specific [place] 1.015 Urine Protein Negative Urine Glucose (UA) Negative Urine Ketones Negative Urine Blood Negative Urine Nitrite Negative Ur Leukocyte Esterase Negative Blood Type Antibody Screen Imaging Radiologist's Impressions: Impressions Head CT 01/19/25 12:12 IMPRESSION: No definite acute intracranial abnormality. No CT evidence of acute territorial infarct. White matter findings which are most likely chronic, related to treatment-related changes, as detailed. This critical result was discussed with Dr. Giovanna More at 12:32 PM on 01/19/2025. It was ascertained that the content and urgency of the report was understood at the time of direct communication. Electronically signed by: Minor Sim MD 01/19/2025 12:37 PM EST RP Abdomen/Pelvis CT 01/19/25 12:18 IMPRESSION: 1. Findings involving both kidneys which are suspicious for bilateral papillary necrosis. Would correlate with urinalysis. 2. Small layering right pleural effusion with associated passive atelectasis. There is cardiomegaly. There are pacer leads present. There is a small pericardial effusion. 3. There are 3 new hypoattenuating subcentimeter foci in the liver, not present on previous examinations, and not definitively representing cysts. These are indeterminant. Consider correlating with MRI given history of malignancy. 4. Additional ancillary findings as discussed in the body of the report. Electronically signed by: Minor Sim MD 01/19/2025 01:07 PM EST RP Head/Neck CTA 01/19/25 12:18 IMPRESSION: No main cerebral artery occlusion or embolus or gross aneurysm. No high degree stenosis or dissection. Malignancy/mass right perihilar right upper lung lobe with associated mediastinal lymphadenopathy, small to moderate volume pericardial effusion and right-sided pleural effusion likely malignant. This critical test result is communicated to: Emergency physician Dr. Giovanna More on January 19, 2025 at 12:42 PM. Electronically signed by: Remi Son MD 01/19/2025 12:53 PM EST RP Chest X-Ray 01/19/25 12:48 IMPRESSION: Malignancy, right lung and likely bilateral small volume pleural effusions. Consider rotator cuff cough tendon tear, chronic/old, right shoulder. Electronically signed by: Remi Son MD 01/19/2025 01:10 PM EST RP Assessment and Plan (1) Essential hypertension: Status: Acute Plan 69-year-old woman placed on observation for weakness to left upper and lower extremity with headache. Patient does have a history of breast CA with Mets to the lung and at 1 point brain. She is not on chemotherapy but may restart palliative treatment. She reported that she does have a PET scan coming up at [facility] soon. She follows with [facility] [place]. Patient is anticoagulated so less likely stroke. Weakness, unspecified Left upper and left lower extremity weakness, no verbal abnormalities Question TIA versus stroke versus brain Mets Neurology consultation Unable to have MRI due to pacemaker, consider repeating head CT tomorrow Monitor on telemetry Neuro checks Breast cancer with lung Mets Chest x-ray showing continued right upper lobe mass Not currently on chemotherapy treatment Oncology consultation Diabetes mellitus type 2 Sliding scale, ADA diet Ensure added Persistent atrial fibrillation Continue Xarelto and metoprolol Hypertension Continue lisinopril GERD Continue PPI Hyperlipidemia Continue statin DVT prophylaxis with Xarelto Full code Quality Stroke Does the patient have a stroke diagnosis?: No VTE Prior VTE?: No VTE Risk Level:: Medical - moderate - high VTE Device Contraindication: Treatment Not Indicated VTE Drug Contraindication: N/A - Med Ordered
--- OUTSIDE RECORDS SUMMARY | 2025-01-19 15:10 | XMS_ITS | Clinical Summary ---
Author Organization [address] [facility] Address [address] [place] [address] Phone Care Team Providers Care Service Station Equipment Mechanic Name Role Phone Maurilio Carias MD Primary Care Provider [phone] Allergies Active Allergy Reactions Criticality Noted Date [...] Active diphenhydramine -aluminum-magne sium-simethicon e-lidocaine (MAGIC MOUTHWASH) [id number] 00 mg/30 mL liquid suspension Use 10 mL in the mouth or throat 3 (three) times a day if needed. 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 ([facility] V24, [facility] V28) (Primary Dx) Discharge Disposition: Home or Self Care 10/23/2024 1:52 PM EDT - 10/23/2024 11:59 PM EDT Hospital Encounter [facility] [address] [place] [phone] Yarely Bird MD Discharge Disposition: Home or Self Care 10/21/2024 2:00 PM EDT - 10/21/2024 11:59 PM EDT Hospital Encounter [facility] [address] [place] [phone] Yarely Bird MD 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 ([facility] V24, [facility] V28) (Primary Dx) Discharge Disposition: Home or Self Care 10/19/2024 1:53 PM EDT - 10/19/2024 11:59 PM EDT Hospital Encounter [facility] [address] [place] [phone] Yarely Bird MD Discharge Disposition: Home or Self Care from Last 3 Months Surgical History Surgery Date Site/Laterality Comments COLONOSCOPY MASTECTOMY Left left - 07/04/22 BREAST LUMPECTOMY Left left breast APPENDECTOMY CARDIAC PACEMAKER PLACEMENT CHOLECYSTECTOMY TUBAL LIGATION Medical History Medical History Date Comments Hyperglycemia PUD (peptic ulcer disease) Essential hypertension PAF (paroxysmal atrial fibri llation) ([facility] V24, [facility] V28) Vertigo Pacemaker GERD (gastroesophageal reflux disease) Hypercholesteremia Breast cancer ([facility] V24, [facility] V28) 10/2021 Left infiltrating ductal carcinoma, triple [...] Last Done Comments Breast Cancer Screening 1954 Colorectal Cancer Screening: Colonoscopy 1954 DTaP,Tdap,and Td Vaccines (1 - Tdap) 1973 Zoster Vaccines (1 of 2) 1973 RSV Immunization Adult Patients (1 - Risk 50-74 years 1-dose series) 2004 Cholesterol Screening (Lipid Panel) 02/19/2022 Falls Risk Assessment 02/19/2022 Hepatitis C [...] TREATMENT SUMMARY Routine 10/19/2024 2:17 PM EDT from Last 3 Months Results * [...] 2 [facility] Prescription Pattern Comment [place] Test prior each fraction [facility]COL[facility] [...] 1 [facility] Prescription Pattern Comment [place] Test prior each fraction [facility] Actual Session Delivered Dose 900 cGray [facility] Actual Total Dose 900 cGray [facility]COL[facility] Prescribed Technique SRS/SRT_VMAT [facility]COL[facility] Elapsed Days 0 [facility] Start Date 10/19/2024 [facility] Last Date 10/19/2024 [facility] Prescribed Number of Fractions 3 [facility] 10/19/2024 2:17 PM EDT Physician Radiation Oncology RADIATION ONCOLO GY ORDERABLES Final Result [facility] from Last 3 Months Insurance [employer] - [place] MEDICARE ADVANTAGE Care Teams Service Station Equipment Mechanic Relationship Specialty Start Date End Date Maurilio Carias MD [address] [place] [address] Dr [address] [facility] [place] [address] PCP - General 09/12/22
--- OUTSIDE RECORDS SUMMARY | 2025-01-19 15:10 | XMS_ITS ---
Author Organization 175 [facility] Address [address] [place] [address] Phone Care Team Providers Care Comb Winder Name Role Phone Maurilio Carias MD Primary Care Provider [phone] Active Problems Problem Noted Date Diagnosed Date [...] cardiac pacemaker 09/12/2022 HLD (hyperlipidemia) 09/12/2022 Current Treatment and Therapy Plans No current plan information found. Past Treatment and Therapy Plans No past plan information found. Current Radiation Episodes * Radiation Therapy: BrainOverview* First Treatment Date Latest Treatment Date Treatment Site Technique Goal Episode Provider 10/19/2024 10/23/2024 Brain Palliative Yarely Bird MD * Linked Problems Treatment Courses* Course 1 10/19/2024 - 10/23/2024 Treatment Sites Treatment Period Fraction Dose Fractions Total Dose Right Frontal Lobe 10/19/2024 - 10/23/2024 900 / 900 cGy 2,700 / 2,700 cGy
[2025-01-19] MEDS: Lactated Ringers 1,000 ML 100 ML IVCONT (15:29)
--- NOTE | 2025-01-19 15:33 | P.CNHO_ITS ---
Subjective - Subjective Chief complaint: Consult for: History of breast cancer. Patient: known to practice within the last 3 years Consult date: 01/19/25 Requesting Physician: Maurilio Carias MD Primary Care Provider: Maurilio Carias MD Family Provider: Maurilio Carias MD Medical Summary: Diagnosis: Left breast infiltrating ductal carcinoma 10/2021/triple negative breast cancer. Associate Attorney Utilized?: No - Faroese Speaking HPI - Consult Narrative Narrative: Lupe Thomas is a 69 year old lady, with stage IV metastatic breast cancer (not currently on chemo but possible restart of palliative chemo if she continues to regain her strength). Currently with known brain lesion status post stereotactic brain radiation therapy in October at [facility]. She presentd today with complaint of waking up and feeling a headache around 07:00. She denies any recent trauma and she noted at that time that she had a left upper extremity numbness and tingling. She noted left lower extremity weakness which started as well at 07:00. She gets up at 05:00 every morning to do her daily exercises and she felt fine at 05:00. She took Tylenol for the headache which did not really improve. She took her lisinopril. She also complains of left lower quadrant pain and has nausea she is scared to eat as she does not want to throw up, she initially denied diarrhea but the daughter noted she had nonbloody stools over the weekend. The patient has not had fevers. MD complaint: Headache, abdominal pain, numbness, weakness Onset (ago): hour(s) (7am) Location: head, abdomen, left, upper extremity and lower extremity Radiation: non-radiation Severity: moderate Quality: other Pain Consistency: constant Exacerbating factors: movement Associated symptoms: headaches and weakness. PAST MEDICAL HISTORY: hypertension, GERD, Hypercholesterolemia, AFib on Xarelto, PCP pneumonia, hyponatremia, PMFSH Medical History: Medical History (Last Updated 01/19/25 @ 15:24 by Tali Aden NP) Abnormal ultrasound of breast Essential hypertension GERD (gastroesophageal reflux disease) Hypercholesteremia Invasive ductal carcinoma of left breast Lung mass Lymphadenopathy, mediastinal Pacemaker Onset Date: ~2008 PAF (paroxysmal atrial fibrillation) PCP (pneumocystis jiroveci pneumonia) Port-A-Cath in place PUD (peptic ulcer disease) Screening for breast cancer Vertigo Family History: Family History (Last Reviewed 01/06/25 @ 10:48 by Ldea Ma) Mother No problems noted. Father No problems noted. Surgical History: Surgical History (Last Reviewed 01/19/25 @ 12:08 by Giovanna More DO) History of appendectomy History of cholecystectomy History of left mastectomy Onset Date: 07/04/22 History of lumpectomy of left breast History of lung biopsy History of permanent cardiac pacemaker placement History of tubal ligation Hx of colonoscopy Social History: Social History (Last Reviewed 01/19/25 @ 12:08 by Giovanna More DO) Living Situation History: Household Members: Family Housing: House Are you a primary palliative care nurse practitioner to a significant other at home: No Do you presently have visiting nurse or other home services: No Tobacco History: Patient Tobacco Use Status: Never used Tobacco Tobacco use type: Cigarette e-Cigarette/Vaping Use: Never Used Second Hand Smoke Exposure: No Advance Directives: Advance Directives Date on File: 09/08/24 Occupation Assessmet: service: No Current occupational status: retired 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 Glucose (Glucose Gel 15 Gm Gel..Gram.) 15 gm PO Q15M PRN; Protocol PRN Reason: per Hypoglycemia Standing Ord. Lactated Ringer's (Lr) 1,000 mls @ 100 mls/hr IVCONT .Q10H [facility] Last Admin: 01/19/25 15:29 Dose: 100 mls/hr Insulin Human Lispro (Insulin Lispro 100 Unit/Ml 3 Ml Vial) 0 unit SUBCUT QIDACHS [facility]; Protocol Lisinopril (Lisinopril 10 Mg Tablet) 10 mg PO DAILY [facility]; Protocol Magnesium Hydroxide (Milk Of Magnesia 30 Ml Oral.Susp) 30 ml PO DAILY PRN PRN Reason: Constipation Magnesium Oxide (Magnesium Oxide 400 Mg Tablet) 400 mg PO DAILY [facility] Melatonin (Melatonin 3 Mg Tablet) 6 mg PO BEDTIME PRN PRN Reason: Insomnia Metoprolol Tartrate (Metoprolol Tartrate 50 Mg Tablet) 50 mg PO BID [facility]; Protocol Non-Formulary Medication (Magic Mouthwash Diphen/Nystat/Antacid 1:1:1) 10 ml PO BID [facility] Non-Formulary Medication (Urea) 1 packet PO DAILY [facility] Omeprazole (Omeprazole 40 Mg Capsule.Dr) 40 mg PO DAILY [facility] Ondansetron HCl (Ondansetron Hcl 4 Mg/2 Ml Vial) 4 mg IVPUSH Q8H PRN PRN Reason: Nausea and Vomiting Oxycodone HCl (Oxycodone Hcl Immed Release 5 Mg Tablet) 5 mg PO BEDTIME [facility] Oxycodone HCl (Oxycodone Hcl Immed Release 5 Mg Tablet) 5 mg PO Q6H PRN PRN Reason: Pain (Scale Score 7-10) Pravastatin Sodium (Pravastatin Sodium 40 Mg Tablet) 40 mg PO DAILY [facility] Rivaroxaban (Rivaroxaban 20 Mg Tablet) 20 mg PO DAILY@1700 [facility] Sodium Chloride (0.9 % Sodium Chloride Flush 3 Ml Syringe) 3 ml IVFLUSH QSHIFT [facility] Sodium Chloride (Sodium Chloride Tab 1 Gm Tablet) 1 gm PO BID [facility] Home Medications ?Medication ?Instructions ?Recorded ?Confirmed ?Type Magic Mouthwash 10 ml PO BID 10/27/24 01/19/25 History Diphen/Nystat/Antacid 1:1:1 240 mL suspension acetaminophen 325 mg tablet 650 mg PO Q6H PRN Pain 10/27/24 01/19/25 History oxycodone 5 mg tablet 5 mg PO BEDTIME 10/27/24 01/19/25 Histor y oxycodone 5 mg tablet 5 mg PO Q6H PRN Pain (Scale Score 01/19/25 History 7-10) rivaroxaban 20 mg tablet (Xarelto) 20 mg PO DAILY@1700 01/19/25 01/19/25 Hi story Allergies Allergy/AdvReac Type Severity Reaction Status Date / Time latex (LATEX) Allergy Intermediate RASH WITH Verified 01/19/25 11:23 CONTACT Physical Exam Vital signs: Vital Signs Temp 98.1 F 01/19/25 15:31 Pulse 89 01/19/25 15:31 Resp 16 01/19/25 15:31 BP 135/83 01/19/25 15:31 Pulse Ox 96 01/19/25 15:31 O2 Del Method Room Air 01/19/25 15:31 Intake & Output 01/18/25 01/19/25 01/19/25 18:59 06:59 18:59 Other: Weight 47.627 kg Weight 47.627 kg Hem/Onc Consult Result - Labs CBC & Chem 7: 01/20/25 06:02 01/20/25 06:02 Labs: Short CBC 01/19/25 Range/Units 12:41 WBC 9.6 (4.8-10.8) X10*3/uL Hgb 8.9 L (12.0-16.0) g/dl Hct 27.4 L (37.0-47.0) % Plt Count 239 (160-400) X10*3/uL BMP 01/19/25 12:41 Sodium 135 Potassium 3.4 Chloride 103 Carbon Dioxide 25 BUN 9 Creatinine 0.53 Calcium 8.8 Liver Function 01/19/25 Range/Units 12:41 Total Bilirubin 0.3 (0.0-1.0) mg/dL AST 19 (5-31) U/L ALT < 6 (0-31) U/L Alkaline Phosphatase 58 (39-117) U/L Albumin 3.2 L (3.5-5.0) g/dL Urine 01/19/25 Range/Units 13:37 Urine Color Yellow Urine Appearance Clear Urine pH 7.5 (5.0-9.0) Ur Specific [place] 1.015 (1.005-1.025) Urine Protein Negative (Neg-Trace) mg/dL Urine Glucose (UA) Negative (Negative) mg/dL Assessment and Plan Patient Active problem list reviewed?: Yes (1) Triple negative breast cancer Status: Acute Assessment and plan: This is a 69-year-old postmenopausal, [place] woman with left breast invasive ductal carcinoma (triple negative)2021. She developed recurrent disease in August 2024. Biopsy of left breast mass at 03:00 o'clock position revealed poorly differentiated invasive carcinoma with ductal features and squamous differentiation. Clinical stage T2 N1. ER/NM/HER2 negative. She started neoadjuvant treatment with pembrolizumab along with weekly carboplatin and Taxol on 12/04/21. She received last cycle of neoadjuvant chemotherapy on 05/07/2022. She underwent left breast lumpectomy/lymph node dissection on 06/06/2022, She underwent left simple mastectomy on 07/04/2022. Pathology revealed benign tissue without residual tumor. Her left chest wall pacemaker was removed and reinserted in the right abdominal wall so as to facilitate adjuvant radiation therapy to left chest wall. She completed adjuvant pembrolizumab end of 2022. She completed adjuvant radiation therapy in December 2022. PET scan performed at [facility] on 09/16/2024 showed FDG avid right upper lobe, perihilar lung mass, FDG avid mediastinal and hilar lymphadenopathy suspicious for metastatic disease, FDG activity in the right supraclavicular and left retro pectoral/axillary region representing metastatic disease. No bone metastasis. Bronchoscopy and biopsy of left upper lobe mass performed 09/14/2024 revealed: Squamous cell carcinoma, moderately differentiated. Similar morphologic appearance to her breast cancer histology. ER/NM negative HER2 was 2+ by IHC, negative FISH; PD-L1 TPF 3%, CPS 4. She started Doxil 40 mg per m2 Q 4 weeks on 10/07/2024 in the first-line setting. Patient was admitted to the hospital on 10/27/2024 with acute hypoxic respiratory failure, hypotension and hyponatremia. She was diagnosed with PJP pneumonia and was treated with IV Bactrim. She was also diuresed and started on sodium tablets. 2. Hyponatremia. Probably secondary to underlying malignancy. Probable SIADH. She was advised to restrict free water intake and increase salt intake. Salt tablets have been prescribed. She has been off salt tablets for a week. Sodium levels have normalized. 3. Solitary brain metastasis. She could not undergo brain MRI because of pacemaker. She completed stereotactic brain radiation therapy in October. 4. Anemia secondary to malignancy and nutritional. She has received blood transfusions in the past. She has now been admitted, with a headache and weakness of left upper and lower extremity. Differential diagnosis: TIA versus stroke versus brain Mets Patient is anticoagulated so less likely stroke. She has had mets to brain. She is not on chemotherapy but may restart palliative treatment. Head CT revealed: No definite acute intracranial abnormality. No CT evidence of acute territorial infarct. White matter findings which are most likely chronic, related to treatment-related changes, as detailed. Head and neck CTA: No main cerebral artery occlusion or embolus or gross aneurysm. No high degree stenosis or dissection. Malignancy/mass right perihilar right upper lung lobe with associated mediastinal lymphadenopathy, small to moderate volume pericardial effusion and right-sided pleural effusion likely malignant. Scan of the abdomen pelvis revealed: 1. Findings involving both kidneys which are suspicious for bilateral papillary necrosis. Would correlate with urinalysis. 2. Small layering right pleural effusion with associated passive atelectasis. There is cardiomegaly. There are pacer leads present. There is a small pericardial effusion. 3. There are 3 new hypoattenuating subcentimeter foci in the liver, not present on previous examinations, and not definitively representing cysts. These are indeterminant. Consider correlating with MRI given history of malignancy. . 10/27, CTA of the chest revealed: 1. No evidence of pulmonary emboli. 2. Known 5.4 x 5.9 x 5.2 cm right upper lobe mass. 3. Diffuse confluent bilateral airspace opacities. Differential diagnostic considerations include pulmonary edema, diffuse pneumonia, or hemorrhage. Clinical correlation is recommended. PLAN: She is being monitored on telemetry. She is on frequent neuro checks. To obtain repeat head CT tomorrow, since unable to have MRI due to pacemaker. Neurology consultation. To proceed with a PET scan as an out patient to reassess and plan further treatment. Thanks for consult, CC: - Time Spent With Patient Time Spent with Patient (in minutes): 30
--- NOTE | 2025-01-19 16:14 | P.CNNE_ITS ---
History of Present Illness Data of Consult Service Date: 01/19/25 Primary Care Provider: Maurilio Carias MD [facility] Reason for consult: left sided weakness This is a 69 year old women presenting with left upper and lower extremity weakness. She has a hx of breast cancer with lung and brain mets and follows with [facility] oncology. Patient reported headache this morning and left upper extremity numbness and tingling with left lower extremity weakness as well. She reported she was trying to do her exercises this morning and she had trouble lifting her left leg. She took some Tylenol for the headache but it really did not improve. She saw her visiting nurse this morning who told her to come into the ER to be evaluated. Over the weekend she was having some nonbloody diarrhea as well. She is not currently on chemotherapy but does have a PET scan coming up according to the patient. She did also receive stereotactic brain radiation therapy in October. Chest x-ray showing right-sided lung mass continues to be present. Head and neck CTA showing no main cerebral artery occlusion, embolus, aneurysm or high-grade stenosis. Malignancy/mass to the right perihilar right upper lung lobe with associated mediastinal lymphadenopathy noted malignant pleural effusion. [facility] Past Medical History Medical History (Updated 01/19/25 @ 16:17 by Kwesi Hess MD) Invasive ductal carcinoma of left breast PCP (pneumocystis jiroveci pneumonia) Lymphadenopathy, mediastinal Lung mass Port-A-Cath in place Abnormal ultrasound of breast Screening for breast cancer PUD (peptic ulcer disease) Essential hypertension PAF (paroxysmal atrial fibrillation) Vertigo Pacemaker (~2008) GERD (gastroesophageal reflux disease) Hypercholesteremia Family History Family History Mother No problems noted. Father No problems noted. Surgical History Surgical History History of lung biopsy Hx of colonoscopy History of left mastectomy (07/04/22) History of lumpectomy of left breast History of appendectomy History of permanent cardiac pacemaker placement History of cholecystectomy History of tubal ligation Social History Social History Household Members: Family Housing: House Are you a primary childcare aide to a significant other at home: No Do you presently have visiting nurse or other home services: No Alcohol intake: never Patient Tobacco Use Status: Never used Tobacco Tobacco use type: Cigarette Smoked in Last 30 Days: No e-Cigarette/Vaping Use: Never Used Second Hand Smoke Exposure: No Use of substances other than those prescribed or required for medical reasons: No Advance Directives: Yes Advance Directives on File: Yes Advance Directives Date on File: 09/08/24 Do you have a plan to hurt others: No Plan Nutrition Risks: No Nutritional Risk service: No Current occupational status: retired 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 Glucose (Glucose Gel 15 Gm Gel..Gram.) 15 gm PO Q15M PRN; Protocol PRN Reason: per Hypoglycemia Standing Ord. Lactated Ringer's (Lr) 1,000 mls @ 100 mls/hr IVCONT .Q10H [facility] Last Admin: 01/19/25 15:29 Dose: 100 mls/hr Insulin Human Lispro (Insulin Lispro 100 Unit/Ml 3 Ml Vial) 0 unit SUBCUT QIDACHS [facility]; Protocol Lidocaine/Diphenhydr/Alum/Mg/Simeth (Mag&Al/Sim/Diphenhyd/Lidocaine 10 Ml Oral.Susp) 10 ml PO BID [facility] Lisinopril (Lisinopril 10 Mg Tablet) 10 mg PO DAILY [facility]; Protocol Magnesium Hydroxide (Milk Of Magnesia 30 Ml Oral.Susp) 30 ml PO DAILY PRN PRN Reason: Constipation Magnesium Oxide (Magnesium Oxide 400 Mg Tablet) 400 mg PO DAILY [facility] Melatonin (Melatonin 3 Mg Tablet) 6 mg PO BEDTIME PRN PRN Reason: Insomnia Metoprolol Tartrate (Metoprolol Tartrate 50 Mg Tablet) 50 mg PO BID [facility]; Protocol Omeprazole (Omeprazole 40 Mg Capsule.Dr) 40 mg PO DAILY@0630 [facility] Ondansetron HCl (Ondansetron Hcl 4 Mg/2 Ml Vial) 4 mg IVPUSH Q8H PRN PRN Reason: Nausea and Vomiting Oxycodone HCl (Oxycodone Hcl Immed Release 5 Mg Tablet) 5 mg PO BEDTIME [facility] Oxycodone HCl (Oxycodone Hcl Immed Release 5 Mg Tablet) 5 mg PO Q6H PRN PRN Reason: Pain (Scale Score 7-10) Pravastatin Sodium (Pravastatin Sodium 40 Mg Tablet) 40 mg PO DAILY [facility] Rivaroxaban (Rivaroxaban 20 Mg Tablet) 20 mg PO DAILY@1700 [facility] Sodium Chloride (0.9 % Sodium Chloride Flush 3 Ml Syringe) 3 ml IVFLUSH QSHIFT [facility] Sodium Chloride (Sodium Chloride Tab 1 Gm Tablet) 1 gm PO BID [facility] Urea (Urea 15 Gm Powder) 1 gm PO DAILY [facility] Home Medications ?Medication ?Instructions ?Recorded ?Confirmed ?Last Taken ?Type Magic Mouthwash 10 ml PO BID 10/27/2410/26/24 History Diphen/Nystat/Antacid 1:1:1 240 mL suspension acetaminophen 325 mg tablet 650 mg PO Q6H PRN Pain 03/1101/19/25 Unknown History oxycodone 5 mg tablet 5 mg PO BEDTIME 10/27/2407/1010/26/24 History oxycodone 5 mg tablet 5 mg PO Q6H PRN Pain (Scale Score 01/19/25 01/19/25 Unknown History 7-10) rivaroxaban 20 mg tablet (Xarelto) 20 mg PO DAILY@1700 01/19/25 01/19/25 Unknown History Physical Exam 2 Vital Signs: Vital Signs: Last Vital Signs Temp 98.1 F 01/19/25 15:31 Pulse 89 01/19/25 15:31 Resp 16 01/19/25 15:31 BP 135/83 01/19/25 15:31 Pulse Ox 96 01/19/25 15:31 O2 Del Method Room Air 01/19/25 15:31 BMI result Body Mass Index 18.6 Neuro: Other: Subtle left-sided weakness Results Labs 01/19/25 12:41 01/19/25 12:41 Labs: Short CBC 01/19/25 Range/Units 12:41 WBC 9.6 (4.8-10.8) X10*3/uL Hgb 8.9 L (12.0-16.0) g/dl Hct 27.4 L (37.0-47.0) % Plt Count 239 (160-400) X10*3/uL BMP 01/19/25 12:41 Sodium 135 Potassium 3.4 Chloride 103 Carbon Dioxide 25 BUN 9 Creatinine 0.53 Calcium 8.8 Liver Function 01/19/25 Range/Units 12:41 Total Bilirubin 0.3 (0.0-1.0) mg/dL AST 19 (5-31) U/L ALT < 6 (0-31) U/L Alkaline Phosphatase 58 (39-117) U/L Albumin 3.2 L (3.5-5.0) g/dL Urine 01/19/25 Range/Units 13:37 Urine Color Yellow Urine Appearance Clear Urine pH 7.5 (5.0-9.0) Ur Specific [place] 1.015 (1.005-1.025) Urine Protein Negative (Neg-Trace) mg/dL Urine Glucose (UA) Negative (Negative) mg/dL Assessment and Plan (1) Metastasis to brain: Status: Acute In view of her history brain metastasis Analilia's at the top of the list therefore I would recommend a contrast CT to be performed particularly because there appears to be a new lesion at least in the left frontoparietal area. A small stroke is still a possibility but an MRI may not be possible because of her pacemaker till it has been verified that the pacemaker is MRI safe. Procedures Date of Service Date of Service: 01/19/25
[2025-01-19 17:10] LABS: Glucose, Whole Blood 83 mg/dL (60-115)
--- NOTE | 2025-01-19 18:34 | PC.NURSE ---
pt a&ox3, monitoring coordinator intact- afib on monitor, ivf running per order, pt taken to bathroom via wheelchair- pt was able to ambulate small amount to wheelchair then onto toilet with an assist. family at bedside, call palencia within reach, plan of care ongoing
--- NOTE | 2025-01-19 20:34 | HO.NURTONUR ---
PT from home with complaint of headache that began around 0700, llq pain and nausea. Pt denies any trauma, fevers,diarhhea, or any other symptoms of concern. While in the ED pt complained of left side weakness and was not able to lift or raise leg on exam. Stroke protocol intiated. Labs in the ED showed RBS 2.96, HGB 8.9, Hct 27.4,magnesium 1.4 (pt received IV mag). Pt is a&ox3, on palliative care and has right chest port that has been accessed, currently IVF LR @ 100ml/hr. Pt being admitted for observation due to weakness.
[2025-01-19 20:56] LABS: Glucose, Whole Blood 164 mg/dL (60-115)
[2025-01-19] MEDS: oxyCODONE HCl Immed Release 5 MG TABLET PO (20:57)
[2025-01-20] VITALS (7 sets, daily range): BP systolic 115–146; BP diastolic 58–74; PULSE 79–104; RESP 16–18; TEMP 36–36.6; O2SAT 93–98
--- NOTE | 2025-01-20 | ECG_ITS ---
Test Reason : chest pain Blood Pressure : */* mmHG Vent. Rate : 85 BPM Atrial Rate : * BPM P-R Int : * ms QRS Dur : 82 ms QT Int : 364 ms P-R-T Axes : * 55 36 degrees QTcB Int : 433 ms Atrial fibrillation Septal infarct (cited on or before 19-Jan-2025) Abnormal ECG When compared with ECG of 19-Jan-2025 12:36, No significant change was found Referred By: Dian Corado Electronically Signed By: Toribio Lau
--- NOTE | 2025-01-20 | ECG_ITS ---
Test Reason : CHEST PAIN Blood Pressure : */* mmHG Vent. Rate : 100 BPM Atrial Rate : * BPM P-R Int : * ms QRS Dur : 74 ms QT Int : 368 ms P-R-T Axes : * 23 31 degrees QTcB Int : 474 ms Atrial fibrillation with premature ventricular or aberrantly conducted complexes Septal infarct (cited on or before 19-Jan-2025) Abnormal ECG When compared with ECG of 20-Jan-2025 05:47, No significant change was found Referred By: Nataly Foss Electronically Signed By: Toribio Lau
[2025-01-20] MEDS: Lactated Ringers 1,000 ML 100 ML IVCONT ×3 (00:18→18:14)
[2025-01-20] MEDS: oxyCODONE HCl Immed Release 5 MG TABLET PO ×3 (04:00→20:07)
--- NOTE | 2025-01-20 05:34 | PC.NURSE ---
Patient reports chest pain that comes and goes. VS stable, One dose of Morphine very effective but pain came back. Medicated with Oxycodone with partial relief. Dian SNOWDEN made aware. EKG and Trop ordered. Will follow.
--- NOTE | 2025-01-20 06:20 | PM.EVENT ---
Event Note Date of Service: 01/20/25 Event Note: pt complaining of intermitted 10/10 chest pain. mild improvement with oxycodone, EKG without any changes. trop pending. Time Spent With Patient Time: Total time managing care of this patient today ____ minutes.
[2025-01-20 06:49] LABS: Anion Gap 12 (12-20); Blood Urea Nitrogen 7 mg/dL (9-16); Calcium 8.8 mg/dL (8.4-10.2); Carbon Dioxide 25 mmol/L (22-29); Chloride 103 mmol/L (96-108); Creatinine Clr Calc Pharmacy 89.6; Estimated Glomerular Filt Rate > 60; Potassium 3.3 mmol/L (3.3-5.1); Sodium 137 mmol/L (135-145)
[2025-01-20 06:52] LABS: Magnesium 1.6 mg/dL (1.6-2.6)
[2025-01-20 06:53] LABS: Troponin-I High Sensitivity 8.8 ng/L (<3.5-17.0)
[2025-01-20 06:57] LABS: Hematocrit 28.9 % (37.0-47.0); Hemoglobin 9.2 g/dl (12.0-16.0); Mean Corpuscular HGB Conc 31.8 g/dl (31.0-35.0); Mean Corpuscular Hemoglobin 29.8 pg (27.0-33.0); Mean Corpuscular Volume 93.5 fL (80.0-98.0); NRBC Abs Auto 0.000 X10*3/uL (0.0-0.012); NRBC Pct Auto 0.0 /100WBC (0.0-0.2); Platelet Count 260 X10*3/uL (160-400); Red Blood Count 3.09 X10*6/uL (4.20-5.50); White Blood Count 12.5 X10*3/uL (4.8-10.8)
[2025-01-20 07:10] LABS: Glucose, Whole Blood 128 mg/dL (60-115)
--- NOTE | 2025-01-20 07:19 | HO.PM.IMPN ---
Subjective Subjective Date of Service: 01/20/25 Interval History: Spoke to the patient's daughter and patient at the bedside Patient is prognosis guarded Patient would not want aggressive measures-DNR DNI MOLST form filled Neurological deficits improving MRI limited secondary to pacemaker it is incompatible We will continue neuro checks Awaiting Heme-Onc recommendations regarding prognostication Review of Systems Review of Systems: Yes all other systems are reviewed and are negative Physical Exam Exam: Exam: Pertinent neurological exam: Her left-sided numbness which was a new symptom yesterday, has improved and is now confined only to the toes in of the left foot. Her sense of general weakness is unchanged. Exam shows nonfocal findings with normal cranial nerves. She has bilateral proximal weakness in the upper extremities in the deltoids and triceps. Lower extremity strength appears intact. She has areflexia probably related to neuropathy. Plantar responses are flexor. I have reviewed her CAT scan and CTA. There is no evidence of metastases. I have to assume that she had a minor thalamic infarct due to small-vessel disease with a predominantly transient left-sided sensory symptoms. Her CTA is unremarkable. She is unable to have an MRI because of her pacemaker. Patient was lying in the bed, was not in acute distress but appears uncomfortable. Vital Signs: Vital Signs: Last Vital Signs Temp 98 F 01/20/25 06:54 Pulse 79 01/20/25 06:54 Resp 16 01/20/25 06:54 BP 138/73 01/20/25 06:54 Pulse Ox 93 01/20/25 06:54 O2 Del Method Room Air 01/20/25 06:54 BMI result Body Mass Index 19.9 Objective Data Active Medications Acetaminophen (Acetaminophen 325 Mg Tablet) 650 mg PO Q6H PRN PRN Reason: Pain, Mild 1-3,fever,headache Last Admin: 01/20/25 04:01 Dose: 650 mg Documented By: HUBERT Calcium Carbonate (Calcium Carbonate 750 Mg Tab.Chew) 750 mg PO Q4H PRN PRN Reason: Heartburn Dextrose (Dextrose 50 % 25 Gm/50 Ml Syringe) 25 gm IVPUSH Q15M PRN; Protocol PRN Reason: per Hypoglycemia Standing Ord. Glucose (Glucose Gel 15 Gm Gel..Gram.) 15 gm PO Q15M PRN; Protocol PRN Reason: per Hypoglycemia Standing Ord. Lactated Ringer's (Lr) 1,000 mls @ 100 mls/hr IVCONT .Q10H [facility] Last Admin: 01/20/25 00:18 Dose: 100 mls/hr Documented By: HUBERT Insulin Human Lispro (Insulin Lispro 100 Unit/Ml 3 Ml Vial) 0 unit SUBCUT QIDACHS [facility]; Protocol Last Admin: 01/19/25 21:46 Dose: Not Given Documented By: HUBERT Non-Admin Reason: given in ed Lidocaine/Diphenhydr/Alum/Mg/Simeth (Mag&Al/Sim/Diphenhyd/Lidocaine 10 Ml Oral.Susp) 10 ml PO BID [facility] Last Admin: 01/19/25 20:57 Dose: Not Given Documented By: PHILLIP Non-Admin Reason: Patient Refused Lisinopril (Lisinopril 10 Mg Tablet) 10 mg PO DAILY [facility]; Protocol Magnesium Hydroxide (Milk Of Magnesia 30 Ml Oral.Susp) 30 ml PO DAILY PRN PRN Reason: Constipation Magnesium Oxide (Magnesium Oxide 400 Mg Tablet) 400 mg PO DAILY [facility] Melatonin (Melatonin 3 Mg Tablet) 6 mg PO BEDTIME PRN PRN Reason: Insomnia Last Admin: 01/19/25 22:03 Dose: 6 mg Documented By: HUBERT Metoprolol Tartrate (Metoprolol Tartrate 50 Mg Tablet) 50 mg PO BID [facility]; Protocol Last Admin: 01/19/25 20:56 Dose: 50 mg Documented By: PHILLIP Omeprazole (Omeprazole 40 Mg Capsule.Dr) 40 mg PO DAILY@0630 [facility] Last Admin: 01/20/25 05:17 Dose: 40 mg Documented By: HUBERT Ondansetron HCl (Ondansetron Hcl 4 Mg/2 Ml Vial) 4 mg IVPUSH Q8H PRN PRN Reason: Nausea and Vomiting Last Admin: 01/20/25 04:12 Dose: 4 mg Documented By: HUBERT Oxycodone HCl (Oxycodone Hcl Immed Release 5 Mg Tablet) 5 mg PO BEDTIME [facility] Last Admin: 01/19/25 20:57 Dose: 5 mg Documented By: PHILLIP Oxycodone HCl (Oxycodone Hcl Immed Release 5 Mg Tablet) 5 mg PO Q6H PRN PRN Reason: Pain (Scale Score 7-10) Last Admin: 01/20/25 04:00 Dose: 5 mg Documented By: HUBERT Pravastatin Sodium (Pravastatin Sodium 40 Mg Tablet) 40 mg PO DAILY [facility] Rivaroxaban (Rivaroxaban 20 Mg Tablet) 20 mg PO DAILY@0900 [facility] Sodium Chloride (0.9 % Sodium Chloride Flush 3 Ml Syringe) 3 ml IVFLUSH QSHIFT [facility] Last Admin: 01/20/25 00:20 Dose: Not Given Documented By: HUBERT Non-Admin Reason: IV Running Sodium Chloride (Sodium Chloride Tab 1 Gm Tablet) 1 gm PO BID [facility] Last Admin: 01/19/25 21:50 Dose: Not Given Documented By: HUBERT Non-Admin Reason: Patient Refused Urea (Urea 15 Gm Powder) 1 gm PO DAILY [facility] Labs 01/20/25 06:02 01/20/25 06:02 Labs: Laboratory Results - last 24 hr 01/19/25 01/19/25 01/19/25 12:09 12:16 12:41 MCV 92.6 MCH 30.1 MCHC 32.5 RDW 15.0 Plt Count 239 MPV 8.6 L Immature Gran % (Auto) 0.5 H Neut % (Auto) 65.5 Lymph % (Auto) 23.3 [place] % (Auto) 8.4 Eos % (Auto) 2.1 Baso % (Auto) 0.2 Lymph # (Auto) 2.2 [place] # (Auto) 0.8 Eos # (Auto) 0.2 Baso # (Auto) 0.0 Abs Immat Gran (auto) 0.05 H Absolute Neuts (auto) 6.3 Absolute Nucleated RBC 0.000 Nucleated RBC % (auto) 0.0 PT 33.0 H D Whole Blood PT 34.7 H INR 2.9 H Whole Blood INR 2.9 H Anion Gap 10 L Estim Creat Clear Calc 74.2 Estimated GFR > 60 POC Glucose 95 Random Glucose 82 Calcium 8.8 Magnesium 1.4 L* Total Bilirubin 0.3 AST 19 ALT < 6 Alkaline Phosphatase 58 Troponin I High Sens 7.6 D Total Protein 6.4 L Albumin 3.2 L Lipase 13 Urine Color Urine Appearance Urine pH Ur Specific [place] Urine Protein Urine Glucose (UA) Urine Ketones Urine Blood Urine Nitrite Ur Leukocyte Esterase Blood Type O Positive Antibody Screen NEGATIVE 01/19/25 01/19/25 01/19/25 13:37 17:07 20:51 MCV MCH MCHC RDW Plt Count MPV Immature Gran % (Auto) Neut % (Auto) Lymph % (Auto) [place] % (Auto) Eos % (Auto) Baso % (Auto) Lymph # (Auto) [place] # (Auto) Eos # (Auto) Baso # (Auto) Abs Immat Gran (auto) Absolute Neuts (auto) Absolute Nucleated RBC Nucleated RBC % (auto) PT Whole Blood PT INR Whole Blood INR Anion Gap Estim Creat Clear Calc Estimated GFR POC Glucose 83 164 H Random Glucose Calcium Magnesium Total Bilirubin AST ALT Alkaline Phosphatase Troponin I High Sens Total Protein Albumin Lipase Urine Color Yellow Urine Appearance Clear Urine pH 7.5 Ur Specific [place] 1.015 Urine Protein Negative Urine Glucose (UA) Negative Urine Ketones Negative Urine Blood Negative Urine Nitrite Negative Ur Leukocyte Esterase Negative Blood Type Antibody Screen 01/20/25 01/20/25 06:02 07:04 MCV 93.5 MCH 29.8 MCHC 31.8 RDW 14.9 Plt Count 260 MPV 8.6 L Immature Gran % (Auto) Neut % (Auto) Lymph % (Auto) [place] % (Auto) Eos % (Auto) Baso % (Auto) Lymph # (Auto) [place] # (Auto) Eos # (Auto) Baso # (Auto) Abs Immat Gran (auto) Absolute Neuts (auto) Absolute Nucleated RBC 0.000 Nucleated RBC % (auto) 0.0 PT Whole Blood PT INR Whole Blood INR Anion Gap 12 Estim Creat Clear Calc 89.6 Estimated GFR > 60 POC Glucose 128 H Random Glucose 124 H Calcium 8.8 Magnesium 1.6 Total Bilirubin AST ALT Alkaline Phosphatase Troponin I High Sens 8.8 Total Protein Albumin Lipase Urine Color Urine Appearance Urine pH Ur Specific [place] Urine Protein Urine Glucose (UA) Urine Ketones Urine Blood Urine Nitrite Ur Leukocyte Esterase Blood Type Antibody Screen Assessment and Plan (1) Metastasis to brain: Status: Acute Plan PMH significant for stage IV breast cancer with mets to the brain on chemoradiation therapy follows with Dr. Mcgill, persistent AFib on Xarelto, [id number] type 2 diabetes,?HTN, HLD, and GERD presented to the ED after noticing left sided arm and leg numbness and tingling and was worked up for a stroke and revealed brain Mets redemonstration. Patient is being followed up for the same. Left arm numbness and weakness likely in the setting of brain mets stage IV breast cancer with mets to the brain on chemoradiation therapy follows with Dr. Mcgill CT imaging, angio thus far unremarkable suggestive of possible remote/chronic thalamic subacute stroke, with resolving left sided weakness-currently only has left arm weakness, resolved left leg numbness. MRI limiting given she has an MRI incompatible pacemaker Continue aspirin statin and neuroimaging. 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 Reassurance given. Patient is on telemetry and electrolytes are being checked and monitored anemia of chronic disease, likely in the setting of anemia of chronic disease and chemotherapy DM2 we will manage with insulin, hold metformin while inpatient GERD-continue omeprazole This note is constructed using voice recognition software. While every effort has been made to ensure accuracy, office rental clerk errors may have been included. Patient appears to be quite sick and needs further workup and hence hospitalization osteophyte and needed given high-risk of decompensation, monitoring and imaging and multispecialty input. Quality Stroke Does the patient have a stroke diagnosis?: No VTE Prior VTE?: No VTE Risk Level:: Medical - moderate - high VTE Device Contraindication: Treatment Not Indicated VTE Drug Contraindication: N/A - Med Ordered
--- NOTE | 2025-01-20 09:25 | PC.NURSE ---
Charge Nurse on M/T and Bed Management notified that MD wants patient transferred upstairs.
--- NOTE | 2025-01-20 09:32 | PC.NURSE ---
Non Need for STAT CT per MD.
--- NOTE | 2025-01-20 09:42 | P.PNNE_ITS ---
Subjective Subjective Date of Service: 01/20/25 Critical Care Time (minutes): 0 Physical Exam 2 Vital Signs: Vital Signs: Last Vital Signs Temp 98 F 01/20/25 06:54 Pulse 79 01/20/25 06:54 Resp 16 01/20/25 06:54 BP 138/73 01/20/25 06:54 Pulse Ox 93 01/20/25 06:54 O2 Del Method Room Air 01/20/25 06:54 BMI result Body Mass Index 19.9 Objective Data Labs 01/20/25 06:02 01/20/25 06:02 Labs: Laboratory Results - last 24 hr 01/19/25 01/19/25 01/19/25 12:09 12:16 12:41 WBC 9.6 RBC 2.96 L Hgb 8.9 L Hct 27.4 L MCV 92.6 MCH 30.1 MCHC 32.5 RDW 15.0 Plt Count 239 MPV 8.6 L Immature Gran % (Auto) 0.5 H Neut % (Auto) 65.5 Lymph % (Auto) 23.3 [place] % (Auto) 8.4 Eos % (Auto) 2.1 Baso % (Auto) 0.2 Lymph # (Auto) 2.2 [place] # (Auto) 0.8 Eos # (Auto) 0.2 Baso # (Auto) 0.0 Abs Immat Gran (auto) 0.05 H Absolute Neuts (auto) 6.3 Absolute Nucleated RBC 0.000 Nucleated RBC % (auto) 0.0 PT 33.0 H D Whole Blood PT 34.7 H INR 2.9 H Whole Blood INR 2.9 H Sodium 135 Potassium 3.4 Chloride 103 Carbon Dioxide 25 Anion Gap 10 L BUN 9 Creatinine 0.53 Estim Creat Clear Calc 74.2 Estimated GFR > 60 POC Glucose 95 Random Glucose 82 Calcium 8.8 Magnesium 1.4 L* Total Bilirubin 0.3 AST 19 ALT < 6 Alkaline Phosphatase 58 Troponin I High Sens 7.6 D Total Protein 6.4 L Albumin 3.2 L Lipase 13 Urine Color Urine Appearance Urine pH Ur Specific [place] Urine Protein Urine Glucose (UA) Urine Ketones Urine Blood Urine Nitrite Ur Leukocyte Esterase Blood Type O Positive Antibody Screen NEGATIVE 01/19/25 01/19/25 01/19/25 13:37 17:07 20:51 WBC RBC Hgb Hct MCV MCH MCHC RDW Plt Count MPV Immature Gran % (Auto) Neut % (Auto) Lymph % (Auto) [place] % (Auto) Eos % (Auto) Baso % (Auto) Lymph # (Auto) [place] # (Auto) Eos # (Auto) Baso # (Auto) Abs Immat Gran (auto) Absolute Neuts (auto) Absolute Nucleated RBC Nucleated RBC % (auto) PT Whole Blood PT INR Whole Blood INR Sodium Potassium Chloride Carbon Dioxide Anion Gap BUN Creatinine Estim Creat Clear Calc Estimated GFR POC Glucose 83 164 H Random Glucose Calcium Magnesium Total Bilirubin AST ALT Alkaline Phosphatase Troponin I High Sens Total Protein Albumin Lipase Urine Color Yellow Urine Appearance Clear Urine pH 7.5 Ur Specific [place] 1.015 Urine Protein Negative Urine Glucose (UA) Negative Urine Ketones Negative Urine Blood Negative Urine Nitrite Negative Ur Leukocyte Esterase Negative Blood Type Antibody Screen 01/20/25 01/20/25 06:02 07:04 WBC 12.5 H RBC 3.09 L Hgb 9.2 L Hct 28.9 L MCV 93.5 MCH 29.8 MCHC 31.8 RDW 14.9 Plt Count 260 MPV 8.6 L Immature Gran % (Auto) Neut % (Auto) Lymph % (Auto) [place] % (Auto) Eos % (Auto) Baso % (Auto) Lymph # (Auto) [place] # (Auto) Eos # (Auto) Baso # (Auto) Abs Immat Gran (auto) Absolute Neuts (auto) Absolute Nucleated RBC 0.000 Nucleated RBC % (auto) 0.0 PT Whole Blood PT INR Whole Blood INR Sodium 137 Potassium 3.3 Chloride 103 Carbon Dioxide 25 Anion Gap 12 BUN 7 L Creatinine 0.47 L Estim Creat Clear Calc 89.6 Estimated GFR > 60 POC Glucose 128 H Random Glucose 124 H Calcium 8.8 Magnesium 1.6 Total Bilirubin AST ALT Alkaline Phosphatase Troponin I High Sens 8.8 Total Protein Albumin Lipase Urine Color Urine Appearance Urine pH Ur Specific [place] Urine Protein Urine Glucose (UA) Urine Ketones Urine Blood Urine Nitrite Ur Leukocyte Esterase Blood Type Antibody Screen Progress Note: A&P Assessment and plan (1) Numbness: Status: Acute Plan Her left-sided numbness which was a new symptom yesterday, has improved and is now confined only to the toes in of the left foot. Her sense of general weakness is unchanged. Exam shows nonfocal findings with normal cranial nerves. She has bilateral proximal weakness in the upper extremities in the deltoids and triceps. Lower extremity strength appears intact. She has areflexia probably related to neuropathy. Plantar responses are flexor. I have reviewed her CAT scan and CTA. There is no evidence of metastases. I have to assume that she had a minor thalamic infarct due to small-vessel disease with a predominantly transient left-sided sensory symptoms. Her CTA is unremarkable. She is unable to have an MRI because of her pacemaker. I expect that his symptoms will resolve. No further neurological intervention is necessary. Physical therapy for general strengthening. Consultation with her oncologist regarding the lung lesions. Time Spent With Patient Time: Total time managing care of this patient today 20 minutes. Procedures Date of Service Date of Service: 01/20/25 Quality Stroke Does the patient have a stroke diagnosis?: No VTE Prior VTE?: No VTE Risk Level:: Medical - moderate - high VTE Device Contraindication: Treatment Not Indicated VTE Drug Contraindication: N/A - Med Ordered
--- NOTE | 2025-01-20 10:42 | PC.NURSE ---
MD States will change MOLST to DNR/DNI
[2025-01-20 10:43] LABS: Troponin-I High Sensitivity 7.4 ng/L (<3.5-17.0)
[2025-01-20 11:14] LABS: Glucose, Whole Blood 157 mg/dL (60-115)
--- NOTE | 2025-01-20 11:49 | PC.NURSE ---
Addendum entered by Kimberlee Robles RN 01/20/25 17:26: Provider clarification, MD wants pt to remain on med/surg with tele monitoring at this time. Original Note: 0830 MD Foss made aware pt endorsing chest pain that comes and goes , and numbness to left hand and foot (not a new finding) pt had similar event on previous shift. Per MD Urgent EKG, trops, tele, and tx to tele floor ordered. MD Foss at bedside with Neuro MD, per providers pt needing MRI but unable due to pace maker, pt and daughter in room and verbalize understanding. Pt states pain improvement but endorsing nausea, Compazine given per MAR with good effect. 10:00 Per rounds, to change pts code status to DNR/DNI, no tx to tele at this time, and tele monitor removed per orders.
--- NOTE | 2025-01-20 14:16 | MHC.CM.PN ---
FAWN 01/19/25 Lives with spouse She is independent with ADLs: uses equipment. DME Walker, WC, Shower bed Patient states that she is active with [facility]. A return referral has been sent. DP Home resume [facility] spouse will transport home.
[2025-01-20 16:21] LABS: Glucose, Whole Blood 108 mg/dL (60-115)
[2025-01-20] MEDS: 0.9 % Sodium Chloride Flush 3 ML SYRINGE IVFLUSH (16:34)
[2025-01-20] MEDS: Sodium Chloride Tab 1 GM TABLET PO (20:15)
[2025-01-20 20:16] LABS: Glucose, Whole Blood 186 mg/dL (60-115)
--- NOTE | 2025-01-20 21:32 | MHC.PIE ---
p; pt refusing tele monitor i; SP Corado notified e; will cont to monitor
[2025-01-21] MEDS: Lactated Ringers 1,000 ML 100 ML IVCONT (01:24)
[2025-01-21 03:37] VITALS: BP 171/82; PULSE 89; RESP 18; TEMP 36.2; O2SAT 93
[2025-01-21] MEDS: oxyCODONE HCl Immed Release 5 MG TABLET PO (04:00)
[2025-01-21 07:40] LABS: Glucose, Whole Blood 127 mg/dL (60-115)
[2025-01-21 07:57] VITALS: BP 168/76; PULSE 99; RESP 15; TEMP 36.3; O2SAT 92
--- NOTE | 2025-01-21 10:01 | P.DS_ITS ---
DS: Providers Provider Date of Service: 01/21/25 Date of admission: 01/19/25 15:08 Date of discharge: 01/21/25 Primary care physician: Maurilio Carias MD Consults: 01/19/25 15:09 Consult to Hematology / Oncology Routine Consulting Provider: [facility] Oncology/Hematology Reason for consultation: lung mass, known to you 01/19/25 15:29 Consult to Neurology Routine Consulting Provider: [facility] Reason for consultation: weakness Attending physician on discharge: Alcon Patino Discharging clinician: Alcon Patino DS: Diagnosis Discharge Diagnosis (1) Transient ischemic attack (TIA): Status: Acute (2) Metastasis to brain: Status: Acute DS: Summary Hospital Course Hospital Course: 69-year-old female with past medical history significant for breast cancer with lung and brain Mets (stereotactic brain radiation therapy in October) who presented to hospital for left upper and lower extremity weakness. On admission chest x-ray right-sided lung mass, had a neck CT with no main cerebral artery occlusion, amylase, aneurysm or high-grade stenosis. Malignancy/mass to the right perihilar right upper lung lobe with associated mediastinal lymphadenopathy with malignant pleural effusion. Patient seen by Neurology, unable to have MRI secondary to pacemaker. Per neurology, possibly minor thalamic infarcts secondary to small vessel disease with predominantly transient left-sided sensory symptoms. Suggested on no further neurological intervention and physical therapy for general strengthening. Per Oncology, suggested on having PET scan done in outpatient setting to reassess and plan further treatment. At this time patient stated that she is feeling okay and wishes to be discharged home, has appointment scheduled for PET scan next week. Suspect TIA likely in the setting of small vessel disease CT imaging, possible remote/chronic thalamic subacute stroke, with resolving left sided weakness-currently only has left arm weakness, resolved left leg numbness -MRI limiting given she has an MRI incompatible pacemaker -Continue aspirin statin and neuroimaging. 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 All side effects were discussed. Follow-up instructions were given. Patient voiced understanding. Patient was given the opportunity ask questions and express concerns, all of which were answered to their satisfaction. Patient was instructed to follow-up with her PCP within 3 to 10 days of discharge and head t o the nearest emergency room or call 911 if symptoms worsen or new symptoms develop. This is a summary of the patient's stay; for more complete details please see chart. More than 35 minutes was spent with patient regarding workup, diagnosis and follow-up. Time Attestation Discharge Coordination Time (in mins): 35 minutes Quality: Safe Use of Opioids Does Pt have an Active Cancer Diagnosis on the Problem List?: Yes Opioid Measure Date for [facility] Report: 12/22/24 Opioid Measure Time for [facility] Report: 10:03 Quality: Stroke Does the patient have a stroke diagnosis?: No Physical Exam Exam: Exam: General: AxOx3, No acute distress Head: AT/NC ENT: Moist mucous membranes Neck: supple CVS; RRR, S1 S2 normal Lungs: Clear bilateral breath sounds, no wheezes or crackles Abd: Soft non tender, non distended Ext: No edema and no calf tenderness MSK: moving all 4 limbs Skin: No cyanosis or edema Psych: Cooperative with exam Neurology: left sided weakness, improved Vital Signs: Vital Signs: Last Vital Signs Temp 97.4 F 01/21/25 07:57 Pulse 99 01/21/25 07:57 Resp 15 01/21/25 07:57 BP 168/76 H 01/21/25 07:57 Pulse Ox 92 01/21/25 07:57 O2 Del Method Room Air 01/21/25 07:57 BMI result Body Mass Index 19.9 DS: Data Data Completed and Pending Completed studies during hospitalization [Text1]: Procedures Assistance with Respiratory Ventilation, Less than 24 Consecutive Hours, Continuous Positive Airway Pressure (10/27/24) Resection of Left Breast, Open Approach (07/04/22) Labs on day of discharge: Laboratory Results - last 24 hr 01/20/25 01/20/25 01/20/25 10:00 11:05 16:17 POC Glucose 157 H 108 Troponin I High Sens 7.4 01/20/25 01/21/25 20:05 07:15 POC Glucose 186 H 127 H Troponin I High Sens Discharge Plan Discharge Anticipated Discharge Date/Time: 01/21/25 12:56 Patient Disposition: Home Health Service Discharge Diagnosis: TIA, stage IV breast cancer, Hypertension Referrals: Kay Carrera MD [Physician, Neurology] - 1 Week Rohan (),MD Nena [Physician, Hematology & Oncology] - 1 Week Po,Maurilio Brooke MD [Primary Care Provider, Internal Medicine] - 1 Week Discharge Medications: Continued omeprazole 40 mg capsule,delayed release(DR/EC) 40 mg PO DAILY Qty: 90 0RF sodium chloride 1,000 mg Tablet,Soluble 1,000 mg PO BID Qty: 60 1RF ondansetron 8 mg Tablet,Disintegrating 8 mg PO Q8H PRN (Reason: Nausea And Vomiting) Qty: 60 0RF lisinopril 10 mg Tablet 10 mg PO DAILY Qty: 60 3RF (DME) FreeStyle Lite Strips Strip Qty: 100 1RF Rx Instructions: twice a day and as needed (DME) lancets [FreeStyle Lancets] 28 gauge misc Qty: 100 0RF Rx Instructions: As Directed metformin 500 mg Tablet 500 mg PO BID Qty: 60 0RF oxycodone 5 mg tablet 5 mg PO BEDTIME Rx Instructions: Partial Fill upon patient request. Magic Mouthwash Diphen/Nystat/Antacid 1:1:1 240 mL suspension 10 ml PO BID Rx Instructions: nystatin 100,000 unit/mL oral suspension 80 mL; diphenhydramine 12.5 mg/5 mL oral liquid 80 mL; aluminum-mag hydroxide-simethicone 400 mg-400 mg-40 mg/5 mL oral susp 80 mL; Per 240 mL acetaminophen 325 mg Tablet 650 mg PO Q6H PRN (Reason: Pain) urea 15 gram powder in packet 1 packet PO DAILY Qty: 8 0RF Rx Instructions: Take one packet daily. Follow up with nephrology to evaluate for continued use past this prescription oxycodone 5 mg tablet 5 mg PO Q6H PRN (Reason: Pain (Scale Score 7-10)) Xarelto 20 mg tablet 20 mg PO DAILY@1700 Rx Instructions: TAKE WITH EVENING MEAL metoprolol tartrate 50 mg tablet 50 mg PO BID Qty: 180 3RF pravastatin 40 mg tablet 40 mg PO DAILY Qty: 90 3RF (DME) blood-glucose meter [FreeStyle Lite Meter] Kit Qty: 1 0RF Rx Instructions: As Directed Discharge Orders: Discharge Order (Routine); Ordered 01/21/25 Ordered By: Alcon Patino Activity on Discharge: As tolerated Stand Alone Forms: Patient Portal Discharge page Print Language: Malian Care Plan Goals: follow up w/ heme oncology, PET scan, Neurology PT/OT Health Concerns: brain cancer, Transient ischemic attack Plan of Treatment: continue PT/OT follow up w/ hematology/oncology Assessment: 69-year-old female with past medical history significant for breast cancer with lung and brain Mets (stereotactic brain radiation therapy in October) who presented to hospital for left upper and lower extremity weakness. On admission chest x-ray right-sided lung mass, had a neck CT with no main cerebral artery occlusion, amylase, aneurysm or high-grade stenosis. Malignancy/mass to the right perihilar right upper lung lobe with associated mediastinal lymphadenopathy with malignant pleural effusion. Patient seen by Neurology, unable to have MRI secondary to pacemaker. Per neurology, possibly minor thalamic infarcts secondary to small vessel disease with predominantly transient left-sided sensory symptoms. Suggested on no further neurological intervention and physical therapy for general strengthening. Per Oncology, suggested on having PET scan done in outpatient setting to reassess and plan further treatment. At this time patient stated that she is feeling okay and wishes to be discharged home, has appointment scheduled for PET scan next week. Patient Instructions: Stroke (DC)
--- NOTE | 2025-01-21 10:41 | MHC.CM.PN ---
Patient medically cleared for dc home w/ resumption of [facility] services. Daughter at bedside to transport. RN aware.
[2025-01-21] MEDS: Heparin Sodium,Porcine Flush 500 UNIT/5 ML SYRINGE IVFLUSH (11:05)
[2025-01-21] MEDS: 0.9 % Sodium Chloride Flush 3 ML SYRINGE IVFLUSH (11:08)
[2025-01-21 11:25] VITALS: BP 163/80; PULSE 85; RESP 16; TEMP 36.1; O2SAT 96
== END 2025-01-21 11:32 | disposition home health service (06) ==
LOC: HO.ED 14:13 → HO.EDOVER 15:22 → HO.S3 19:28
PROVIDERS: Physician Assistant; Registered Nurse Emergency; Student in an Organized Health Care Education/Training Program; Admitting Provider Nurse Practitioner Acute Care; Emergency Provider Emergency Medicine; PCP Internal Medicine; Visit Provider Student in an Organized Health Care Education/Training Program
DX: G45.9 Transient cerebral ischemic attack, unspecified (principal); C50.919 Malignant neoplasm of unspecified site of unspecified female breast; D63.0 Anemia in neoplastic disease; C79.31 Secondary malignant neoplasm of brain; J91.0 Malignant pleural effusion; R53.1 Weakness; E83.42 Hypomagnesemia; R06.00 Dyspnea, unspecified; R07.9 Chest pain, unspecified; R20.0 Anesthesia of skin; R10.32 Left lower quadrant pain; R91.8 Other nonspecific abnormal finding of lung field; E87.6 Hypokalemia; I48.19 Other persistent atrial fibrillation; E11.9 Type 2 diabetes mellitus without complications; K21.9 Gastro-esophageal reflux disease without esophagitis; I10 Essential (primary) hypertension; Z79.01 Long term (current) use of anticoagulants; Z95.0 Presence of cardiac pacemaker; Z79.899 Other long term (current) drug therapy; Z79.60 Long term (current) use of unspecified immunomodulators and immunosuppressants
CPT/HCPCS: 36415; 70450; 70496; 70498; 71045; 74177; 80048; 80053; 81003; 82947; 83690; 83735; 84484; 85025; 85027; 85610; 86850; 86900; 86901; 93005; 96361; 96365; 96366; 96375; 96376; 99222; 99285; J0737; J1642; J2270; J2405; J3475; J7120; Q9967

== ENCOUNTER → 2025-01-19 12:04 | Outpatient (BNV) | payer MEDICARE, SELFPAY ==
--- NOTE | 2025-01-22 13:59 | ...WebTmpl.AM.BPCHK ---
Intake Intake Visit Reasons: High BP Allergies latex (LATEX) Allergy (Intermediate, Verified 01/19/25 11:23) RASH WITH CONTACT Coding
== END ==
PROVIDERS: Emergency Provider Emergency Medicine; PCP Internal Medicine; Visit Provider Radiology Diagnostic Radiology
DX: R10.32 Left lower quadrant pain (principal); J90 Pleural effusion, not elsewhere classified; I51.7 Cardiomegaly; R53.1 Weakness; R90.82 White matter disease, unspecified; N28.1 Cyst of kidney, acquired; R51.9 Headache, unspecified
CPT/HCPCS: 70450; 70496; 70498; 71045; 74177

== ENCOUNTER → 2025-01-19 12:05 | Outpatient (BNV) | payer MEDICARE, SELFPAY | PROVIDERS: Admitting Provider Nurse Practitioner Acute Care; Emergency Provider Emergency Medicine; PCP Internal Medicine; Visit Provider Internal Medicine Cardiovascular Disease | DX: I48.92 Unspecified atrial flutter (principal); I25.2 Old myocardial infarction | CPT/HCPCS: 93010 ==

== ENCOUNTER 2025-01-19 15:08 | Outpatient (BNV) | payer MEDICARE, SELFPAY | END 2025-01-20 05:47 | PROVIDERS: Admitting Provider Nurse Practitioner Acute Care; Emergency Provider Emergency Medicine; PCP Internal Medicine; Visit Provider Internal Medicine Cardiovascular Disease | DX: I48.91 Unspecified atrial fibrillation (principal); I25.2 Old myocardial infarction | CPT/HCPCS: 93010 ==

== ENCOUNTER → 2025-01-19 15:08 | Outpatient (BNV) | payer MEDICARE, SELFPAY | PROVIDERS: Admitting Provider Nurse Practitioner Acute Care; Emergency Provider Emergency Medicine; PCP Internal Medicine; Visit Provider Internal Medicine Medical Oncology | DX: C50.912 Malignant neoplasm of unspecified site of left female breast (principal); C34.12 Malignant neoplasm of upper lobe, left bronchus or lung; C79.31 Secondary malignant neoplasm of brain; D63.0 Anemia in neoplastic disease; E87.1 Hypo-osmolality and hyponatremia; R51.9 Headache, unspecified; R53.1 Weakness; J90 Pleural effusion, not elsewhere classified; Z17.1 Estrogen receptor negative status [ER-] | CPT/HCPCS: 99222 ==

== ENCOUNTER → 2025-01-19 15:08 | Outpatient (BNV) | payer MEDICARE, SELFPAY | PROVIDERS: Admitting Provider Nurse Practitioner Acute Care; Emergency Provider Emergency Medicine; PCP Internal Medicine; Visit Provider Psychiatry & Neurology Neurology | DX: R20.0 Anesthesia of skin (principal) | CPT/HCPCS: 99232 ==

== ENCOUNTER → 2025-01-19 15:08 | Outpatient (BNV) | payer MEDICARE, SELFPAY | PROVIDERS: Admitting Provider Nurse Practitioner Acute Care; Emergency Provider Emergency Medicine; PCP Internal Medicine; Visit Provider Physician Assistant | DX: I10 Essential (primary) hypertension (principal); C79.31 Secondary malignant neoplasm of brain | CPT/HCPCS: 99223; 99233; 99499 ==

== ENCOUNTER 2025-02-02 16:03 | Outpatient (REF) | payer MEDICARE, SELFPAY ==
[2025-02-02 16:08] LABS: MANUAL DIFF FLAG NO
[2025-02-02 16:15] LABS: Hematocrit 30.6 % (37.0-47.0); Hemoglobin 9.6 g/dl (12.0-16.0); Imm Gran Abs Auto 0.06 X10*3/uL (0.00-0.03); Imm Gran Pct Auto 0.5 % (0.0-0.4); Lymphocytes Absolute Auto 2.1 X10*3/uL (1.2-4.9); Mean Corpuscular HGB Conc 31.4 g/dl (31.0-35.0); Mean Corpuscular Hemoglobin 29.3 pg (27.0-33.0); Mean Corpuscular Volume 93.3 fL (80.0-98.0); NRBC Abs Auto 0.000 X10*3/uL (0.0-0.012); NRBC Pct Auto 0.0 /100WBC (0.0-0.2); Platelet Count 279 X10*3/uL (160-400); Red Blood Count 3.28 X10*6/uL (4.20-5.50); White Blood Count 13.0 X10*3/uL (4.8-10.8)
[2025-02-02 16:36] LABS: Alanine Aminotransferase < 6 U/L (0-31); Albumin Level 3.3 g/dL (3.5-5.0); Alkaline Phosphatase 64 U/L (39-117); Anion Gap 12 (12-20); Aspartate Amino Transferase 14 U/L (5-31); Blood Urea Nitrogen 11 mg/dL (9-16); Calcium 8.8 mg/dL (8.4-10.2); Carbon Dioxide 22 mmol/L (22-29); Chloride 105 mmol/L (96-108); Estimated Glomerular Filt Rate > 60; Potassium 3.5 mmol/L (3.3-5.1); Sodium 135 mmol/L (135-145); Total Protein 6.8 g/dL (6.5-8.0)
== END 2025-02-02 16:04 | disposition home or self-care (01) ==
LOC: HO.HVNA 16:03
PROVIDERS: Visit Provider Internal Medicine
DX: C34.90 Malignant neoplasm of unspecified part of unspecified bronchus or lung (principal)
CPT/HCPCS: 36415; 80053; 85025

== ENCOUNTER 2025-02-08 12:23 | Outpatient (AMB) | payer MEDICARE, SELFPAY ==
--- NOTE | 2025-02-08 12:36 | MHC.PC.OV ---
Vital Signs 02/08/25 12:38 Height 5 ft 3 in Weight 115 lb 4 oz BMI 20.4 BP 142/80 H Blood Pressure Location Rt brachial Position Sitting Respiration 18 Pulse 66 Pulse Source Pulse Oximeter Temp Source Temporal Artery Scan Pulse Oximetry (%) 99 Oxygen Delivery Method Room Air Intake Visit Reasons: discuss bp meds/ follow up Interactive Media Designer Required: No Accompanied by: Self / Same As Patient Allergies latex (LATEX) Allergy (Intermediate, Verified 02/08/25 12:38) RASH WITH CONTACT Medication List - Last Reconciled 02/08/25 by Maurilio Carias MD acetaminophen 650 mg PO Q6H PRN blood sugar diagnostic (FreeStyle Lite Strips) twice a day and as needed blood-glucose meter (FreeStyle Lite Meter kit) As Directed lancets (FreeStyle Lancets) As Directed lisinopril 20 mg PO DAILY Magic Mouthwash Diphen/Nystat/Antacid 1:1:1 10 mL PO BID metformin 500 mg PO BID metoprolol tartrate 50 mg PO BID omeprazole 40 mg PO DAILY ondansetron 8 mg PO Q8H PRN oxycodone 5 mg PO BEDTIME oxycodone 5 mg PO Q6H PRN pravastatin 40 mg PO DAILY rivaroxaban (Xarelto) 20 mg PO DAILY@1700 sodium chloride 1,000 mg PO BID urea 1 packet PO DAILY Tobacco use date assessed: 02/08/25 Fall risk assessment: No Falls in past year Last assessed Fall Risk: 02/08/25 Dental Screening Dental Screen Date: 02/08/25 Did you have a dental visit in the last 12 months?: No Did you have a dental problem in the last 6 months where you did not have access to dental care?: No Was dental information given to patient?: No HPI HPI Comments History of Present Illness Details History of Present Illness The patient is a 69-year-old individual presenting for a follow-up visit for management of multiple chronic conditions. The patient has a history of left breast cancer with metastases. A PET scan in January 2025 revealed worsening metastatic disease, including a right upper lobe lung mass, new bilateral pulmonary nodules, hepatic lesions, a right adrenal lesion, and a small right humeral head lesion. The patient has a persistent cough, which is more frequent at night. Past medical history is significant for GERD, hypertension, hypercholesterolemia, atrial fibrillation on Xarelto, type 2 diabetes mellitus, and osteoporosis. The patient has a pacemaker, which precludes MRI studies. The patient has had several recent hospital admissions. The patient was admitted with a diagnosis of a TIA and metastatic brain disease after experiencing left lower extremity weakness. 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 During that hospitalization, the patient also had atrial fibrillation with a rapid ventricular rate, acute on chronic hyponatremia requiring sodium supplementation, and anemia of chronic disease. The patient also had an ER visit in January for abdominal pain. The patient declined short-term rehab after a hospitalization. An echocardiogram in January showed an ejection fraction of 55-60%. The last blood work from February 02 showed anemia with a hemoglobin of 9.6 and hematocrit of 30.6, normal electrolytes, good renal function, and a blood sugar of 132. Recent sodium levels have been stable at the low end of normal, and potassium has been borderline low. The patient is up to date with colonoscopy as of July 2023 and had a bone density scan in October 2023. The patient is followed by hematology/oncology and has a home nurse. Health Maintenance - Last bone density scan was in October 2023. - The patient is up to date with colonoscopy, with the last one performed in July 2023. - Dietary counseling was provided, recommending increased intake of fruits, vegetables, fish, and chicken, while reducing meat and fried foods. - Advised to maintain adequate hydration. - Advised to limit caffeine intake to one cup of coffee per day. Social History - The patient has a home nurse for care. - Diet: The patient is trying to reduce meat intake and consume more fish, chicken (not fried), and green leafy vegetables. - Caffeine: Drinks one cup of coffee per day. - Pain management: Prefers Tylenol for pain, as it is found to be more helpful than oxycodone, and does not like the feeling from oxycodone. Results - Labs (February 02): - Anemia with hemoglobin 9.6 g/dL and hematocrit 30.6% - Electrolytes were normal. - Renal function was good. - Blood sugar was 132 mg/dL. - Sodium levels have been stable between 135-139 mmol/L since December. - Potassium levels have been on the lower border, recently measuring 3.5 mmol/L after trending down from a high of 5.4 mmol/L in November. - Liver function tests are fine. - Imaging: - PET scan (January 2025) showed worsening metastatic disease, with an enlarging right lung mass, new bilateral pulmonary spots, liver spots, a right adrenal lesion, and a lesion on the right humerus. - Echocardiogram (January) showed an ejection fraction of 55-60%. 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 Father No problems noted. 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 Cognitive needs: No Hearing needs: No Vision needs: Yes Questionnaire Thrive Questionnaire Date Thrive assessed: 02/08/25 I am a: Patient What is your living situation today?: I have a steady place to live Within the past 12 months, did the food you bought not last and you didn't have the money to get more?: Never true Within the past 12 months, did you worry whether your food would run out before you got money to buy more?: Never true Do you have trouble paying for medicines?: No Do you have trouble getting transportation to medical appointments?: No Do you have trouble paying your heating and electricity bill?: No Do you have trouble taking care of your child, family member or friend?: No Do you have trouble with day-to-day activities such as bathing, preparing meals, shopping, managing finances, etc.?: No Are you currently unemployed and looking for a job?: No Are you interested in more education?: I choose not to answer this question Please select the resources that you would like help with: None Currently or been in a relationship where the following occur: No concerns reported THRIVE Score: 0 AUDIT C Alcohol Use Questionnaire (AUDIT-C) 1. How often do you have a drink containing alcohol?: Never Total Score: 0 JOSE-7 AMB Questionnaire JOSE-7 Date JOSE - 7 assessed: 06/18/24 Feeling nervous, anxious, or on edge: 0 = Not at all Not being able to stop or control worryin = Not at all Worrying too much about different things: 0 = Not at all Trouble relaxin = Not at all Being so restless that it is hard to sit still: 0 = Not at all Becoming easily annoyed or irritable: 0 = Not at all Feeling afraid as if something awful might happen: 0 = Not at all Total JOSE-7 score (0-4 normal; 5-9 mild; 10-14 moderate; 15-21 severe): 0 Source: Developed by Drs. Nahum Britton, Aster Nguyen, Jl Verdin and colleagues, with an educational jessica from [employer]. Review of Systems Narrative Review of Systems - Respiratory: Reports a persistent cough, which is worse at night. - Reports minimal phlegm production with the cough. - Neurological: Reports a history of left lower extremity weakness. - Gastrointestinal: Reports a history of abdominal pain. - Denies nausea if taking ondansetron as needed. Physical exam (Primary Care) Vital Signs: Last Vital Signs Pulse 66 02/08/25 12:38 Resp 18 02/08/25 12:38 BP 142/80 H 02/08/25 12:38 Pulse Ox 99 02/08/25 12:38 Oxygen Delivery Method Room Air 02/08/25 12:38 BMI result Body Mass Index 20.4 Tobacco/Smoking Status: Tobacco use Status Tobacco use date assessed 02/08/25 02/08/25 12:41 Patient Tobacco Use Status Never used Tobacco 02/08/25 12:41 Tobacco use type Cigarette 02/08/25 12:41 e-Cigarette/Vaping Use Never Used 02/08/25 12:41 Thrive Assessment: Date of Thrive Assessment Date Thrive assessed 02/08/25 02/08/25 12:41 Currently or been in a relationship where the following occur: No concerns reported Narrative Physical Exam Respiratory: Lungs auscultated. Const General: alert; No acute distress Eyes Conjunctivae: conjunctivae normal Resp Auscultation: clear to auscultation bilaterally Cardio Rate: regular rate Rhythm: regular rhythm GI Inspection: Yes normal to inspection Extrem General: Yes normal to inspection and No edema Coding Level of Care Code Complex visit Add On G2211 Diagnoses Invasive ductal carcinoma of left breast C50.912 GERD (gastroesophageal reflux disease) K21.9 Type 2 diabetes mellitus with hyperglycemia E11.65 Persistent atrial fibrillation I48.19 Essential hypertension I10 Hypercholesteremia E78.00 Depression, major F32.9 Cough R05.9 Assessment & Plan Assessment & Plan (1) Invasive ductal carcinoma of left breast: Comment: Status post mastectomy Code(s): C50.912 - Malignant neoplasm of unspecified site of left female breast Category: Medical Plan: Patient is being followed up by hematology oncology and PET scan noted metastasis. (2) GERD (gastroesophageal reflux disease): Code(s): K21.9 - Gastro-esophageal reflux disease without esophagitis Category: Medical Plan: Avoid the foods that causes that usually spicy foods, tomato products, juices, coffee, soda and foods that your sensitive to. After eating do not lie down, allow 3-4 hours before in lie down. And keep the head of bed above 30 degrees to avoid the acid from going up. (3) Type 2 diabetes mellitus with hyperglycemia: Code(s): E11.65 - Type 2 diabetes mellitus with hyperglycemia Category: Medical Plan: Decrease the amount of carbohydrate intake, pasta, bread, rice and potatoes are all sugar and that is aside from all the sweet stuff, remember that fruits are good but they are Sweet also. (4) Persistent atrial fibrillation: Code(s): I48.19 - Other persistent atrial fibrillation Category: Medical Plan: Continue with anticoagulation with Xarelto (5) Essential hypertension: Code(s): I10 - Essential (primary) hypertension Category: Medical Plan: Continue with blood pressure medication. Decrease salt intake and exercise on lisinopril g once a day metoprolol 50 mg twice a day (6) Hypercholesteremia: Code(s): E78.00 - Pure hypercholesterolemia, unspecified Category: Medical Plan: Avoid fried foods, chicken skin, eggs, butter margarine, pastries and meat. Be it pork or beef they have a lot of cholesterol LDL goal of less than 100 on pravastatin 40 mg once a day (7) Depression, major: Code(s): F32.9 - Major depressive disorder, single episode, unspecified Category: Medical (8) Cough: Code(s): R05.9 - Cough, unspecified Category: Medical Plan Plan Patient was informed and verbally consented to the use of an ambient scribe for clinic note documentation during this visit. 1. Metastatic Breast Cancer The patient is followed by hematology/oncology, with an appointment next week to decide on next steps, including the continuation of chemotherapy. For the persistent dry cough, a prescription for Tessalon Perles was provided, to be taken as needed up to three times a day. If the cough does not resolve, a stronger medication with codeine or hydrocodone can be considered. 2. Hypertension The patient reports uncontrolled blood pressure. The patient will continue the current regimen of lisinopril 20 mg daily and metoprolol 50 mg twice daily, with medication adjustments deferred until after the oncology appointment next week. The patient was educated on proper home blood pressure monitoring, including resting for 3-5 minutes before measurement and maintaining proper posture. The blood pressure goal is a systolic below 140 mmHg and a diastolic below 90 mmHg. The patient was advised to report consistently high readings or if the systolic number is frequently below 110 mmHg. 3. Atrial Fibrillation The patient will continue anticoagulation with Xarelto. 4. Diabetes Mellitus Continue metformin 500 mg twice daily. The patient was instructed to check blood sugar two hours after meals, with a target of less than 150 mg/dL. The patient should avoid levels below 100 mg/dL, as hypoglycemia is a more significant concern than mild hyperglycemia. 5. Hyponatremia The patient has been taking sodium supplementation once daily instead of the prescribed twice daily due to intolerance. Recent labs show sodium levels are stable and within the normal range on the once-daily dosage, so this regimen is acceptable and should be continued. 6. Hypokalemia The patient's potassium levels are at the lower border of normal. The patient was advised to increase dietary potassium through foods such as avocados, spinach, and potatoes, while moderating banana intake due to sugar content. 7. Hypercholesterolemia Continue pravastatin 40 mg once a day with a goal LDL of less than 100 mg/dL. 8. Gastroesophageal Reflux Disease Continue omeprazole 40 mg daily. Discussion Notes I reviewed the patient's recent history, including hospital admissions for a TIA and infection. We discussed the recent PET scan findings which showed progression of metastatic disease in the lungs, liver, adrenal gland, and bone. I addressed the patient's persistent dry cough by prescribing Tessalon Perles, explaining that if it is ineffective, we could escalate to a stronger medication containing hydrocodone. We discussed blood pressure management, and I advised the patient to continue current medications, deferring changes until after the upcoming oncology appointment. I provided detailed instructions on how to properly measure blood pressure at home to get accurate readings. I reviewed lab results, noting that the sodium level has stabilized with once-a-day supplementation, a regimen which we will continue. We discussed the borderline low potassium and recommended increasing dietary intake of potassium-rich foods. For diabetes management, I clarified that blood sugars should be checked two hours after meals, with a goal of <150 mg/dL, and emphasized that sugars <100 mg/dL should be avoided. I encouraged the patient to eat a healthy diet with more fruits, vegetables, and fish and to stay well-hydrated. I advised the patient to use the patient portal for faster communication regarding medication adjustments or questions. Patient Instructions - For your cough, a prescription for Tessalon Perles has been sent to your pharmacy. - You can take one pill up to three times a day as needed when you have a cough. - If the cough does not improve, please send a message through the patient portal for a stronger medication. - Continue your current blood pressure medications. - When you check your blood pressure at home, sit and rest for 3-5 minutes before taking a reading. - Do not cross your legs. - Your goal is to have the top number below 140 and the bottom number below 90. - Let us know if your top number is often below 110. - Continue taking your sodium pill once a day. - Check your blood sugar two hours after you eat. - Your blood sugar should be below 150. - It is important that your blood sugar does not go below 100. - Eat more foods that have potassium, such as avocados, spinach, and potatoes. - Drink plenty of fluids like water. - Follow up with your cancer doctor (oncologist) next week. - For any questions or medication requests, please send a message through the patient portal for a faster response. Orders: Orders AMB Hemoglobin A1c Today E11.65 - Type 2 diabetes mellitus with hyperglycemia Medications: New benzonatate 200 mg PO BID-TID PRN 30 caps 0RF cough R05.9 - Cough, unspecified
[2025-02-08 12:38] VITALS: BP 142/80; PULSE 66; RESP 18; O2SAT 99; BMI 20.4
--- OUTSIDE RECORDS SUMMARY | 2025-02-08 16:23 | XMS_ITS ---
Author Organization [address] [facility] Address [address] [place] [address] Phone Care Team Providers Care Gas Meter Installer Name Role Phone Maurilio Carias MD Primary Care Provider [phone] Active Problems Problem Noted Date Diagnosed Date [...]
--- OUTSIDE RECORDS SUMMARY | 2025-02-08 16:24 | XMS_ITS | Clinical Summary ---
Author Organization [address] [facility] Address [address] [place] [address] Phone Care Team Providers Care Community Manager Name Role Phone Maurilio Carias MD Primary Care Provider [phone] Allergies Active Allergy Reactions Criticality Noted Date [...] Active diphenhydramine -aluminum-magne sium-simethicon e-lidocaine (MAGIC MOUTHWASH) [id number] [phone] mg/30 mL liquid suspension Use 10 mL in the mouth or throat 3 (three) times a day if needed. Active Active Problems Problem Noted Date Diagnosed Date Breast cancer metastasized t o brain (CMS/[facility] V24, CMS/[facility] V28) 09/15/2024 PAF (paroxysmal atrial fibri llation) (CMS/HCC V24, CMS/[facility] V28) 09/12/2022 Overview (09/10/2024): Last Assessment & [...] Encounters Date Type Department Care Team Description 01/27/2025 7:36 AM EST - 01/27/2025 11:59 PM EST Hospital Encounter [facility] PET Scan [address] [place] [address] Breast cancer of upper-outer quadrant of left female breast ([facility] V24, [facility] V28) Discharge Disposition: Home or Self Care from Last 3 Months Surgical History Surgery Date Site/Laterality Comments COLONOSCOPY MASTECTOMY Left left - 07/04/22 BREAST LUMPECTOMY Left left breast APPENDECTOMY CARDIAC PACEMAKER PLACEMENT CHOLECYSTECTOMY TUBAL LIGATION Medical History Medical History Date Comments Hyperglycemia PUD (peptic ulcer disease) Essential hypertension PAF (paroxysmal atrial fibri llation) ([facility] V24, [facility] V28) Vertigo Pacemaker GERD (gastroesophageal reflux disease) Hypercholesteremia Breast cancer ([facility] V24, [facility] V28) 10/2021 Left infiltrating ductal carcinoma, triple [...] Screening 02/19/2022 Depression Screening 03/18/2024 COVID-19 Vaccine ( season) 2024 01/07/2024, 02/21/2021, 07/05/2020, Additional history [...] Comments PET CT SKULL TO MID THIGH SUBSEQUENT Routine 01/27/2025 9:56 AM EST Breast cancer of upper-outer quadrant of left female breast (CMS/HCC V24, CMS/HCC V28) from Last 3 Months Results * PET CT Skull to Mid Thigh Subsequent (01/27/2025 9:56 AM EST) Anatomical Region Laterality Modality Body Radiographic Jacinta ging 02/04/2025 3:20 PM EST Impressions 02/04/2025 3:36 PM EST PET/CT evidence of worsening metastatic disease with enlarging metabolically active right upper lobe lung mass as well as new bilateral pulmonary nodules, hepatic lesions, right adrenal lesion as well as small right humeral head lesion. -------- FINAL REPORT -------- Dictated By: Monica Walker Dictated Date: 02/04/2025 15:20 ET Assigned Physician: Monica Walker Reviewed and Electronically Signed By: Monica Walker Signed Date: 02/04/2025 15:36 ET Workstation ID: [id number] Transcribed By: Self Edit Transcribed Date: 02/04/2025 15:33 ET Narrative 02/04/2025 3:36 PM EST INDICATION: Breast carcinoma, subsequent treatment strategy Prior relevant studies: PET/CT dated September 16, 2024 Radiopharmaceutical: 13.1 mCi of F-18 FDG IV. Blood glucose: 112 mg/dl. PROCEDURE: Routine body FDG PET-CT imaging was performed from the skull base to the mid thighs and reconstructed in axial, coronal, and sagittal planes at the computer workstation with fused data from both the PET imaging study and attenuation correction CT. The CT portion of the examination was done strictly for attenuation correction and is not a true diagnostic CT examination. CTDI: 4.29 mGy FINDINGS: HEAD AND NECK: Interval increase FDG avid cervical lymphadenopathy with increased SUV max on the right side from 3.4 up to 4.8 with new avid node on the left side measuring 5.3. THORAX: Increase in size of partially necrotic right upper lobe/right hilar lung mass with SUV max of 12.9, previously 10. Lung mass is now confluent with the right hilar lymphadenopathy. Persistent FDG avid mediastinal nodes including prevascular nodes as well as paratracheal and subcarinal nodes with SUV max of 6.9 within the paratracheal region previously 8. New FDG avid left upper lobe pulmonary nodule laterally within the lung apex with SUV max of 5.2. New FDG avid pulmonary nodule as well as pleural nodule medially within the right lung apex SUV max of 2.4 and 2.1 respectively. New small right pleural effusion. New trace right-sided pericardial effusion. ABDOMEN/PELVIS: Interval development of multiple new FDG avid hepatic lesions noted within both right and left lobes SUV max up to 6.8. New FDG avid right adrenal lesion with SUV max of 10.8. MUSCULOSKELETAL: New small FDG avid sclerotic lesion within the right humeral head with SUV max of 2.4. Procedure Note Monica Walker MD - 02/04/2025 INDICATION: Breast carcinoma, subsequent treatment strategy Prior relevant studies: PET/CT dated September 16, 2024 Radiopharmaceutical: 13.1 mCi of F-18 FDG IV. Blood glucose: 112 mg/dl. PROCEDURE: Routine body FDG PET-CT imaging was performed from the skullbase to the mid thighs and reconstructed in axial, coronal, and sagittalplanes at the computer workstation with fused data from both the PETimaging study and attenuation correction CT. The CT portion of theexamination was done strictly for attenuation correction and is not a truediagnostic CT examination. CTDI: 4.29 mGy FINDINGS: HEAD AND NECK: Interval increase FDG avid cervical lymphadenopathy withincreased SUV max on the right side from 3.4 up to 4.8 with new avid nodeon the left side measuring 5.3. THORAX: Increase in size of partially necrotic right upper lobe/righthilar lung mass with SUV max of 12.9, previously 10. Lung mass is nowconfluent with the right hilar lymphadenopathy. Persistent FDG avid mediastinal nodes including prevascular nodes as wellas paratracheal and subcarinal nodes with SUV max of 6.9 within theparatracheal region previously 8. New FDG avid left upper lobe pulmonary nodule laterally within the lungapex with SUV max of 5.2. New FDG avid pulmonary nodule as well as pleural nodule medially withinthe right lung apex SUV max of 2.4 and 2.1 respectively. New small right pleural effusion. New trace right-sided pericardial effusion. ABDOMEN/PELVIS: Interval development of multiple new FDG avid hepaticlesions noted within both right and left lobes SUV max up to 6.8. New FDG avid right adrenal lesion with SUV max of 10.8. MUSCULOSKELETAL: New small FDG avid sclerotic lesion within the righthumeral head with SUV max of 2.4. IMPRESSION: PET/CT evidence of worsening metastatic disease with enlargingmetabolically active right upper lobe lung mass as well as new bilateralpulmonary nodules, hepatic lesions, right adrenal lesion as well as smallright humeral head lesion. -------- FINAL REPORT -------- Dictated By: Monica Walker Dictated Date: 02/04/2025 15:20 ET Assigned Physician: Monica Walker Reviewed and Electronically Signed By: Monica Walker Signed Date: 02/04/2025 15:36 ET Workstation ID: [id number] Transcribed By: Self Edit Transcribed Date: 02/04/2025 15:33 ET Renate Mcgill MD IM NM PROCEDURES Final Result from Last 3 Months Insurance [employer] - [place] MEDICARE ADVANTAGE Care Teams Community Manager Relationship Specialty Start Date End Date Maurilio Carias MD [address] [place] [address] [address] [facility] [place] [address] PCP - General 09/12/22
== END 2025-02-08 13:19 | disposition home or self-care (01) ==
LOC: HO.HMCH 12:24
PROVIDERS: PCP Internal Medicine; Visit Provider Internal Medicine
DX: C50.912 Malignant neoplasm of unspecified site of left female breast (principal); K21.9 Gastro-esophageal reflux disease without esophagitis; E11.65 Type 2 diabetes mellitus with hyperglycemia; I48.19 Other persistent atrial fibrillation; I10 Essential (primary) hypertension; E78.00 Pure hypercholesterolemia, unspecified; F32.9 Major depressive disorder, single episode, unspecified; R05.9 Cough, unspecified

== ENCOUNTER → 2025-02-08 12:23 | Outpatient (BNVA) | payer MEDICARE, SELFPAY | PROVIDERS: PCP Internal Medicine; Visit Provider Internal Medicine | DX: K21.9 Gastro-esophageal reflux disease without esophagitis (principal); I10 Essential (primary) hypertension; E78.00 Pure hypercholesterolemia, unspecified; C50.912 Malignant neoplasm of unspecified site of left female breast; E11.65 Type 2 diabetes mellitus with hyperglycemia; I48.19 Other persistent atrial fibrillation; F32.9 Major depressive disorder, single episode, unspecified; R05.9 Cough, unspecified; E87.1 Hypo-osmolality and hyponatremia; Z86.73 Personal history of transient ischemic attack (TIA), and cerebral infarction without residual deficits; Z79.899 Other long term (current) drug therapy | CPT/HCPCS: 99212 ==